=== PATIENT | male | born 1945 | race Caucasian/White ===

== ENCOUNTER 2018-01-21 02:36 | Inpatient (IN) | payer MEDICARE ==
--- NOTE | 2018-01-21 03:43 | ED ---
Dizziness HPI - General Chief Complaint: Dizziness Stated Complaint: Vertigo Time Seen by Provider: 01/21/18 02:43 Source: patient Mode of arrival: ambulatory Limitations: no limitations - History of Present Illness Initial Comments: This patient is 72-year-old man coming to the emergency room by ambulance to be evaluated after he had a fall. The patient states that for number of months she has been having increasing generalized weakness and muscle wasting. He does not have a physician so he states he had just put up with this going on. Tonight he had gone and use the bathroom, and when he bent down he'll became very dizzy and lost his balance. He then was not able to get up even with the help of a neighbor so they did call EMS. He did spend a couple of hours on the floor attempting to get up. The patient denies any injury. No fever or chills. No dyspnea. He denies focal weakness. Review of systems, the patient does note that he has left leg swelling that has been long-standing. MD Complaint: difficulty walking, other (Generalized weakness) -: month(s) Timing: gradual onset Improves With: nothing Worsens With: nothing Associated Symptoms: weakness - Related Data Home Medications Medication Instructions Recorded Confirmed Aspirin EC [Ecotrin] 325 mg PO DAILY 01/21/18 01/21/18 Allergies Allergy/AdvReac Type Severity Reaction Status Date / Time No Known Allergies Allergy Verified 01/21/18 07:37 Review of Systems ROS Statement: Those systems with pertinent positive or pertinent negative responses have been documented in the HPI. ROS Other: All systems not noted in ROS Statement are negative. Constitutional: Reports: weakness. Denies: fever, chills Eyes: Denies: vision change Respiratory: Denies: cough, dyspnea Cardiovascular: Reports: edema (Left leg). Denies: chest pain, palpitations, orthopnea Gastrointestinal: Denies: abdominal pain, vomiting, diarrhea Genitourinary: Denies: dysuria, hematuria Musculoskeletal: Denies: back pain Skin: Denies: rash Neurological: Reports: weakness (Generalized). Denies: headache, numbness, paresthesias Psychiatric: Denies: anxiety Past Medical History Past Medical History: No Reported History History of Any Multi-Drug Resistant Organisms: None Reported Past Surgical History: No Surgical Hx Reported Past Psychological History: No Psychological Hx Reported Smoking Status: Current every day smoker Past Alcohol Use History: Daily Past Drug Use History: None Reported - Past Family History Mother Additional Family Medical History / Comment(s): from cirrhosis Father Additional Family Medical History / Comment(s): from [place] General Exam Limitations: no limitations General appearance: alert, in no apparent distress Head exam: Present: atraumatic, normocephalic Eye exam: Present: normal appearance. Absent: scleral icterus, conjunctival injection ENT exam: Present: mucous membranes dry Neck exam: Present: normal inspection Respiratory exam: Present: normal lung sounds bilaterally. Absent: respiratory distress, wheezes, rales, rhonchi, stridor Cardiovascular Exam: Present: regular rate, normal rhythm, normal heart sounds. Absent: systolic murmur, diastolic murmur, rubs, gallop GI/Abdominal exam: Present: soft. Absent: tenderness, guarding, rebound Extremities exam: Present: normal capillary refill, other (Left leg edema to the knee). Absent: tenderness Neurological exam: Present: alert, CN II-XII intact. Absent: motor sensory deficit Skin exam: Present: warm, dry, intact, pallor Course Vital Signs 01/21/18 01/21/18 01/21/18 02:45 04:26 06:01 Temperature 98.4 F Pulse Rate 68 64 67 Respiratory 16 16 16 Rate Blood Pressure 110/56 128/60 109/57 O2 Sat by Pulse 99 97 98 Oximetry 01/21/18 01/21/18 01/21/18 07:50 08:00 08:30 Temperature 97.5 F L 97.8 F 97.9 F Pulse Rate 71 63 62 Respiratory 18 16 16 Rate Blood Pressure 116/61 116/70 113/68 O2 Sat by Pulse 97 92 L Oximetry EKG Findings - EKG Results: EKG: interpreted by ERMD, sinus rhythm, normal axis, normal QRS - Blocks, [place], Hypertrophy, ST Abn: Repolarization changes or abnormalities: nonspecific abnormality, ST segment, and/or T wave, Q-T interval prolongation Medical Decision Making - Lab Data Result diagrams: 01/29/18 04:25 01/29/18 04:25 Lab Results 01/21/18 01/21/18 01/21/18 Range/Units 02:50 02:50 02:50 WBC (3.8-10.6) k/uL RBC (4.30-5.90) m/uL Hgb (13.0-17.5) gm/dL Hct (39.0-53.0) % MCV (80.0-100.0) fL MCH (25.0-35.0) pg MCHC (31.0-37.0) g/dL RDW (11.5-15.5) % Plt Count (150-450) k/uL Neutrophils % % Lymphocytes % % Monocytes % % Eosinophils % % Basophils % % Neutrophils # (1.3-7.7) k/uL Lymphocytes # (1.0-4.8) k/uL Monocytes # (0-1.0) k/uL Eosinophils # (0-0.7) k/uL Basophils # (0-0.2) k/uL Hypochromasia Poikilocytosis Anisocytosis Microcytosis Macrocytosis Retic Count (0.5-2.0) % Sodium 137 (137-145) mmol/L Potassium 2.1 L* (3.5-5.1) mmol/L Chloride 98 (98-107) mmol/L Carbon Dioxide 27 (22-30) mmol/L Anion Gap 12 mmol/L BUN 8 L (9-20) mg/dL Creatinine 0.63 L (0.66-1.25) mg/dL Est GFR (CKD-EPI)AfAm >90 (>60 ml/min/1.73 sqM) Est GFR (CKD-EPI)NonAf >90 (>60 ml/min/1.73 sqM) Glucose 87 (74-99) mg/dL Lactic Ac Sepsis Rflx Plasma Lactic Acid Rohit 3.8 H* (0.7-2.0) mmol/L Calcium 7.7 L (8.4-10.2) mg/dL Magnesium (1.6-2.3) mg/dL Iron (65-175) ug/dL TIBC (228-460) ug/dL Iron Saturation (15.00-50.00) Ferritin (22.0-322.0) ng/mL Total Bilirubin 0.2 (0.2-1.3) mg/dL AST 69 H (17-59) U/L ALT 31 (21-72) U/L Alkaline Phosphatase 144 H (38-126) U/L Total Creatine Kinase 158 (55-170) U/L CK-MB (CK-2) 2.2 (0.0-2.4) ng/mL CK-MB (CK-2) Rel Index 1.4 Troponin I 0.147 H* (0.000-0.034) ng/mL Total Protein 5.1 L (6.3-8.2) g/dL Albumin 2.5 L (3.5-5.0) g/dL Vitamin B12 (200.0-944.0) pg/mL RBC Folate (280 - 791) ng/mL TSH (0.465-4.680) mIU/L Blood Type Blood Type Confirm Blood Type Recheck Antibody Screen Crossmatch Spec Expiration Date 01/21/18 01/21/18 01/21/18 Range/Units 04:18 04:18 04:18 WBC 5.5 (3.8-10.6) k/uL RBC 2.01 L (4.30-5.90) m/uL Hgb 5.5 L* (13.0-17.5) gm/dL Hct 18.4 L* (39.0-53.0) % MCV 91.8 (80.0-100.0) fL MCH 27.2 (25.0-35.0) pg MCHC 29.6 L (31.0-37.0) g/dL RDW 26.0 H (11.5-15.5) % Plt Count 298 (150-450) k/uL Neutrophils % 80 % Lymphocytes % 12 % Monocytes % 7 % Eosinophils % 0 % Basophils % 0 % Neutrophils # 4.4 (1.3-7.7) k/uL Lymphocytes # 0.7 L (1.0-4.8) k/uL Monocytes # 0.4 (0-1.0) k/uL Eosinophils # 0.0 (0-0.7) k/uL Basophils # 0.0 (0-0.2) k/uL Hypochromasia Marked Poikilocytosis Marked Anisocytosis Marked Microcytosis Slight Macrocytosis Slight Retic Count (0.5-2.0) % Sodium (137-145) mmol/L Potassium (3.5-5.1) mmol/L Chloride (98-107) mmol/L Carbon Dioxide (22-30) mmol/L Anion Gap mmol/L BUN (9-20) mg/dL Creatinine (0.66-1.25) mg/dL Est GFR (CKD-EPI)AfAm (>60 ml/min/1.73 sqM) Est GFR (CKD-EPI)NonAf (>60 ml/min/1.73 sqM) Glucose (74-99) mg/dL Lactic Ac Sepsis Rflx Plasma Lactic Acid Rohit (0.7-2.0) mmol/L Calcium (8.4-10.2) mg/dL Magnesium (1.6-2.3) mg/dL Iron 50 L (65-175) ug/dL TIBC 201 L (228-460) ug/dL Iron Saturation 24.88 (15.00-50.00) Ferritin 693.5 H (22.0-322.0) ng/mL Total Bilirubin (0.2-1.3) mg/dL AST (17-59) U/L ALT (21-72) U/L Alkaline Phosphatase (38-126) U/L Total Creatine Kinase (55-170) U/L CK-MB (CK-2) (0.0-2.4) ng/mL CK-MB (CK-2) Rel Index Troponin I (0.000-0.034) ng/mL Total Protein (6.3-8.2) g/dL Albumin (3.5-5.0) g/dL Vitamin B12 875.0 (200.0-944.0) pg/mL RBC Folate 1,309 H (280 - 791) ng/mL TSH (0.465-4.680) mIU/L Blood Type Blood Type Confirm Blood Type Recheck Antibody Screen Crossmatch Spec Expiration Date 01/21/18 01/21/18 01/21/18 Range/Units 04:18 04:18 04:55 WBC (3.8-10.6) k/uL RBC (4.30-5.90) m/uL Hgb (13.0-17.5) gm/dL Hct (39.0-53.0) % MCV (80.0-100.0) fL MCH (25.0-35.0) pg MCHC (31.0-37.0) g/dL RDW (11.5-15.5) % Plt Count (150-450) k/uL Neutrophils % % Lymphocytes % % Monocytes % % Eosinophils % % Basophils % % Neutrophils # (1.3-7.7) k/uL Lymphocytes # (1.0-4.8) k/uL Monocytes # (0-1.0) k/uL Eosinophils # (0-0.7) k/uL Basophils # (0-0.2) k/uL Hypochromasia Poikilocytosis Anisocytosis Microcytosis Macrocytosis Retic Count 1.3 (0.5-2.0) % Sodium (137-145) mmol/L Potassium (3.5-5.1) mmol/L Chloride (98-107) mmol/L Carbon Dioxide (22-30) mmol/L Anion Gap mmol/L BUN (9-20) mg/dL Creatinine (0.66-1.25) mg/dL Est GFR (CKD-EPI)AfAm (>60 ml/min/1.73 sqM) Est GFR (CKD-EPI)NonAf (>60 ml/min/1.73 sqM) Glucose (74-99) mg/dL Lactic Ac Sepsis Rflx Y Plasma Lactic Acid Rohit (0.7-2.0) mmol/L Calcium (8.4-10.2) mg/dL Magnesium 1.7 (1.6-2.3) mg/dL Iron (65-175) ug/dL TIBC (228-460) ug/dL Iron Saturation (15.00-50.00) Ferritin (22.0-322.0) ng/mL Total Bilirubin (0.2-1.3) mg/dL AST (17-59) U/L ALT (21-72) U/L Alkaline Phosphatase (38-126) U/L Total Creatine Kinase (55-170) U/L CK-MB (CK-2) (0.0-2.4) ng/mL CK-MB (CK-2) Rel Index Troponin I (0.000-0.034) ng/mL Total Protein (6.3-8.2) g/dL Albumin (3.5-5.0) g/dL Vitamin B12 (200.0-944.0) pg/mL RBC Folate (280 - 791) ng/mL TSH 2.320 (0.465-4.680) mIU/L Blood Type Blood Type Confirm Blood Type Recheck Antibody Screen Crossmatch Spec Expiration Date 01/21/18 01/21/18 Range/Units 06:00 06:00 WBC (3.8-10.6) k/uL RBC (4.30-5.90) m/uL Hgb (13.0-17.5) gm/dL Hct (39.0-53.0) % MCV (80.0-100.0) fL MCH (25.0-35.0) pg MCHC (31.0-37.0) g/dL RDW (11.5-15.5) % Plt Count (150-450) k/uL Neutrophils % % Lymphocytes % % Monocytes % % Eosinophils % % Basophils % % Neutrophils # (1.3-7.7) k/uL Lymphocytes # (1.0-4.8) k/uL Monocytes # (0-1.0) k/uL Eosinophils # (0-0.7) k/uL Basophils # (0-0.2) k/uL Hypochromasia Poikilocytosis Anisocytosis Microcytosis Macrocytosis Retic Count (0.5-2.0) % Sodium (137-145) mmol/L Potassium (3.5-5.1) mmol/L Chloride (98-107) mmol/L Carbon Dioxide (22-30) mmol/L Anion Gap mmol/L BUN (9-20) mg/dL Creatinine (0.66-1.25) mg/dL Est GFR (CKD-EPI)AfAm (>60 ml/min/1.73 sqM) Est GFR (CKD-EPI)NonAf (>60 ml/min/1.73 sqM) Glucose (74-99) mg/dL Lactic Ac Sepsis Rflx Plasma Lactic Acid Rohit (0.7-2.0) mmol/L Calcium (8.4-10.2) mg/dL Magnesium (1.6-2.3) mg/dL Iron (65-175) ug/dL TIBC (228-460) ug/dL Iron Saturation (15.00-50.00) Ferritin (22.0-322.0) ng/mL Total Bilirubin (0.2-1.3) mg/dL AST (17-59) U/L ALT (21-72) U/L Alkaline Phosphatase (38-126) U/L Total Creatine Kinase (55-170) U/L CK-MB (CK-2) (0.0-2.4) ng/mL CK-MB (CK-2) Rel Index Troponin I (0.000-0.034) ng/mL Total Protein (6.3-8.2) g/dL Albumin (3.5-5.0) g/dL Vitamin B12 (200.0-944.0) pg/mL RBC Folate (280 - 791) ng/mL TSH (0.465-4.680) mIU/L Blood Type O Positive Blood Type Confirm O Positive Blood Type Recheck CABO Indicated Antibody Screen NEGATIVE Crossmatch See Detail Spec Expiration Date 01/24/2018 - 2300 Critical Care Time Critical Care Time: Yes (30 minutes) Disposition Clinical Impression: Anemia, Lactic acidosis, Hypokalemia, Left leg swelling Disposition: [facility]MITT[facility] Condition: Poor
--- NOTE | 2018-01-21 03:57 | XR ---
EXAMINATION TYPE: XR chest 1V portable DATE OF EXAM: 01/21/2018 COMPARISON: NONE HISTORY: Dizziness TECHNIQUE: Single frontal view of the chest is obtained. FINDINGS: There is no heart failure nor confluent pneumonic infiltrate. There are numerous calcified granulomata in the right lung. Diaphragm is normal. There are chest leads. Bony thorax appears intac t. IMPRESSION: No active cardiopulmonary disease. Old granulomatous disease.
[2018-01-21 04:26] LABS: ALT 31 U/L (21-72); AST 69 U/L (17-59); Albumin 2.5 g/dL (3.5-5.0); Alkaline Phosphatase 144 U/L (38-126); Anion Gap 12 mmol/L; Blood Urea Nitrogen 8 mg/dL (9-20); Calcium 7.7 mg/dL (8.4-10.2); Carbon Dioxide 27 mmol/L (22-30); Chloride 98 mmol/L (98-107); Glucose 87 mg/dL (74-99); Sodium 137 mmol/L (137-145); Total Bilirubin 0.2 mg/dL (0.2-1.3); Total Protein 5.1 g/dL (6.3-8.2)
--- NOTE | 2018-01-21 04:26 | CT ---
EXAMINATION TYPE: CT brain wo con DATE OF EXAM: 01/21/2018 COMPARISON: None HISTORY: No prior, weakness, vertigo CT DLP: 1108.40 mGycm Automated exposure control for dose reduction was used. FINDINGS: There is cerebral cortical atrophy. There is no mass effect nor midline shift. There is no sign of in tracranial hemorrhage. Calvarium is intact. There is mucosal thickening in the maxillary sinuses. The re is fluid level in the right maxillary sinus. There is cortical thickening of the aldridge of the maxi llary sinuses. There is frontal sinus mucosal thickening. IMPRESSION: CHRONIC SINUSITIS. CEREBRAL ATROPHY. NO ACUTE INTRACRANIAL ABNORMALITY.
[2018-01-21 04:46] LABS: Anisocytosis Marked; Basophils % (A) 0 %; Eosinophils % (A) 0 %; Hypochromasia Marked; Lymphocytes # (A) 0.7 k/uL (1.0-4.8); Lymphocytes % (A) 12 %; MCH 27.2 pg (25.0-35.0); MCHC 29.6 g/dL (31.0-37.0); MCV 91.8 fL (80.0-100.0); Macrocytosis Slight; Microcytosis Slight; Monocytes # (A) 0.4 k/uL (0-1.0); Monocytes % (A) 7 %; Neutrophils # (A) 4.4 k/uL (1.3-7.7); Neutrophils % (A) 80 %; Platelet Count 298 k/uL (150-450); Poikilocytosis Marked; RBC 2.01 m/uL (4.30-5.90); WBC 5.5 k/uL (3.8-10.6)
[2018-01-21 04:50] LABS: HCT 18.4 % (39.0-53.0); HGB 5.5 gm/dL (13.0-17.5)
[2018-01-21 04:54] LABS: Potassium 2.1 mmol/L (3.5-5.1)
[2018-01-21 05:06] LABS: Creatine Kinase MB 2.2 ng/mL (0.0-2.4)
[2018-01-21] MEDS ORDERED: SODIUM CHLORIDE 0.9% 1,000 ML IV ONE ×2 (05:24→07:00)
[2018-01-21] MEDS ORDERED: POTASSIUM CHLORIDE ER 20 MEQ TAB.ER PO STA (05:24)
[2018-01-21 05:39] LABS: Troponin I 0.147 ng/mL (0.000-0.034)
[2018-01-21 07:56] LABS: Magnesium 1.7 mg/dL (1.6-2.3)
--- NOTE | 2018-01-21 08:09 | US ---
EXAMINATION TYPE: US venous doppler duplex LE LT DATE OF EXAM: 01/21/2018 7:37 AM COMPARISON: NONE CLINICAL HISTORY: swelling. left leg swelling, no hx of DVT, on aspirin SIDE PERFORMED: Left TECHNIQUE: The lower extremity deep venous system is examined utilizing real time linear array sonog va with graded compression, doppler sonography and color-flow sonography. VESSELS IMAGED: External Iliac Vein (EIV) Common Femoral Vein Deep Femoral Vein Greater Saphenous Vein * Femoral Vein Popliteal Vein Small Saphenous Vein * Proximal Calf Veins (* superficial vessels) There is normal flow, compressibility, vascular waveforms. Left Leg: Negative for DVT. Superficial edema visualized posterior knee IMPRESSION: No evident deep venous thrombosis at or above the left knee.
[2018-01-21 08:28] LABS: Reticulocyte % 1.3 % (0.5-2.0)
[2018-01-21] MEDS ORDERED: POTASSIUM CHLORIDE ER 20 MEQ TAB.ER PO SCH (09:00)
[2018-01-21] MEDS ORDERED: POTASSIUM BICARBONATE/CIT AC 20 MEQ TABLET.EFF PO ONE (09:55)
[2018-01-21] MEDS ORDERED: HYDROcodone/APAP 5-325MG 1 EACH TAB PO PRN (10:04)
[2018-01-21] MEDS ORDERED: ONDANSETRON 4 MG/2 ML VIAL IVP PRN (10:04)
[2018-01-21] MEDS ORDERED: ACETAMINOPHEN TAB 325 MG TAB PO PRN (10:04)
[2018-01-21] MEDS ORDERED: ALPRAZolam 0.25 MG TAB PO PRN (10:04)
[2018-01-21] MEDS ORDERED: NALOXONE 0.4 MG/ML 1 ML VIAL IV PRN (10:04)
[2018-01-21] MEDS ORDERED: DOCUSATE 100 MG CAP PO PRN (10:04)
[2018-01-21] MEDS ORDERED: LORazepam 2 MG/ML INJ IV PRN ×3 (10:09)
--- NOTE | 2018-01-21 10:28 | P.HPIM ---
History of Present Illness H&P Date: 01/21/18 Chief Complaint: weakness Patient is a 72-year-old male with history of tobacco and alcohol abuse but no medical history who presented to the ER via EMS after falling to the ground and being unable to recover. In the ER he underwent an extensive evaluation. They did a CT brain which showed some chronic sinusitis site is an age-appropriate atrophy. Chest x-ray showed old granulomatous disease. Vital signs were within normal limits. Initial laboratory analysis shows severe anemia with a hemoglobin of 5.5 and elevated troponin at 0.147.. He was ordered 1 unit of packed red blood cells. Arrangements are made for admission. Patient seen and examined at bedside in the ER. He reports that he was attempting to go to the bathroom yesterday and felt off balance and lowered himself to the ground. Once on the ground he was unable to get himself up. He crawled to the living room but still could not get off the ground. He called a neighbor who was unable to help him in he ultimately called EMS. He reports that he has had significant eye lateral lower extremity weakness for the last 2- 3 months. He has been aware that he cannot lowered salt ground or he cannot get back up. He is states he has had a decreased appetite and has lost approximately 15 pounds in the last 6 months. He denies any chest pain, shortness of breath, nausea, vomiting, dizziness, syncopal, diarrhea, or constipation. He does not have a primary care physician and is only ever seen physicians from the ER. Has lost contact with medical care was at [facility] in 2016 for pneumonia. He states that at that time they told him to take a pill because his blood count was slightly low. He denies any blood in his stool, dark tarry stool, blood in his urine, or coughing up blood. He smokes 1-1.5 packs per day. He drinks between one and 3 shots daily. He states that he doesn't eat while there is nobody there to call. He lives alone. He obtained a walker just yesterday due to his weakness. He has never had a colonoscopy or prostate cancer screening. He denies any family history of cancer. Review of Systems Pertinent positives and negatives as discussed in HPI, a complete review of systems was performed and all other systems are negative. Past Medical History Past Medical History: No Reported History History of Any Multi-Drug Resistant Organisms: None Reported Past Surgical History: No Surgical Hx Reported Past Psychological History: No Psychological Hx Reported Smoking Status: Current every day smoker Past Alcohol Use History: Daily Past Drug Use History: None Reported Additional History: Lives alone, no primary care physician, smokes 1-1.5 packs per day, drinks 1-3 shots daily. - Past Family History Mother Additional Family Medical History / Comment(s): from cirrhosis Father Additional Family Medical History / Comment(s): from [place] Medications and Allergies Home Medications Medication Instructions Recorded Confirmed Type Aspirin EC [Ecotrin] 325 mg PO DAILY 01/21/18 01/21/18 History Allergies Allergy/AdvReac Type Severity Reaction Status Date / Time No Known Allergies Allergy Verified 01/21/18 07:37 Physical Exam Osteopathic Statement: *. No significant issues noted on an osteopathic structural exam other than those noted in the History and Physical/Consult. Vitals: Vital Signs Temp Pulse Resp BP Pulse Ox 01/21/18 08:30 97.9 F 62 16 113/68 01/21/18 08:00 97.8 F 63 16 116/70 92 L 01/21/18 07:50 97.5 F L 71 18 116/61 97 01/21/18 06:01 67 16 109/57 98 01/21/18 04:26 64 16 128/60 97 01/21/18 02:45 98.4 F 68 16 110/56 99 Intake and Output 01/20/18 01/21/18 01/21/18 22:59 06:59 14:59 Intake Total 0 Balance 0 Intake: Blood Product 0 Rc Pheresis As-3 Unit 0 [id number] Other: Weight 58.967 kg General: chronically ill appearing, no distress, appears at stated age, cachetic with temporal wasting Derm: no unusual rashes/lesions no unusual ecchymoses, warm, dry, flaking Head: atraumatic, normocephalic, symmetric Eyes: EOMI, no lid lag, anicteric sclera, pupils equal round reactive to light ENT: Nose and ears atraumatic, no thrush, no pharyngeal erythema Neck: No thyromegaly, no cervical lymphadenopathy, trachea midline, supple Mouth: no lip lesion, mucus membranes dry, poor dentition Cardiovascular: S1S2 reg, no murmur, positive posterior tibial pulse bilateral, 2+ edema left LE, no edema R LE, capillary refill less than 2 seconds Lungs: faint wheeze left base, no rhonchi, no rales , no accessory muscle use Abdominal: soft, nontender to palpation, no guarding, no appreciable organomegaly, normal bowel sounds Ext: no gross muscle atrophy, muscle strength 5 out of 5upper extremities grossly and 3/5 in lower extremities, no contractures, Neuro: CN II-XI grossly intact, light touch intact all 4 extremities, finger to nose within normal limits, Psych: Alert, oriented, appropriate affect Results CBC & Chem 7: 01/21/18 04:18 01/21/18 02:50 Labs: Abnormal Lab Results - Last 24 Hours (Table) 01/21/18 01/21/18 01/21/18 Range/Units 02:50 02:50 02:50 RBC (4.30-5.90) m/uL Hgb (13.0-17.5) gm/dL Hct (39.0-53.0) % MCHC (31.0-37.0) g/dL RDW (11.5-15.5) % Lymphocytes # (1.0-4.8) k/uL Potassium 2.1 L* (3.5-5.1) mmol/L BUN 8 L (9-20) mg/dL Creatinine 0.63 L (0.66-1.25) mg/dL Plasma Lactic Acid Rohit 3.8 H* (0.7-2.0) mmol/L Calcium 7.7 L (8.4-10.2) mg/dL AST 69 H (17-59) U/L Alkaline Phosphatase 144 H (38-126) U/L Troponin I 0.147 H* (0.000-0.034) ng/mL Total Protein 5.1 L (6.3-8.2) g/dL Albumin 2.5 L (3.5-5.0) g/dL Crossmatch 01/21/18 01/21/18 Range/Units 04:18 06:00 RBC 2.01 L (4.30-5.90) m/uL Hgb 5.5 L* (13.0-17.5) gm/dL Hct 18.4 L* (39.0-53.0) % MCHC 29.6 L (31.0-37.0) g/dL RDW 26.0 H (11.5-15.5) % Lymphocytes # 0.7 L (1.0-4.8) k/uL Potassium (3.5-5.1) mmol/L BUN (9-20) mg/dL Creatinine (0.66-1.25) mg/dL Plasma Lactic Acid Rohit (0.7-2.0) mmol/L Calcium (8.4-10.2) mg/dL AST (17-59) U/L Alkaline Phosphatase (38-126) U/L Troponin I (0.000-0.034) ng/mL Total Protein (6.3-8.2) g/dL Albumin (3.5-5.0) g/dL Crossmatch See Detail Thrombosis Risk Factor Assmnt - DVT/VTE Prophylaxis DVT/VTE Prophylaxis: Mechanical Prophylaxis ordered Assessment and Plan Assessment: Symptomatic anemia, hypoproliferative -Await iron studies, B12, and folic acid -Follow CBC in a.m. -1 unit of packed red blood cells -Consult hematology oncology Generalized Lower extremity weakness -Await B12 level -Fall precautions -PT/OT evaluation - Consult neuro, consider MRI Elevated troponin, likely secondary to demand ischemia -Repeat troponin every 6 hours -start aspirin 81 mg -Check echo in a.m. - tele Severe Hypokalemia -Magnesium levels normal when checked -Replace -Recheck this afternoon -tele Tobacco abuse - cessation - nicotine replacement ETOH abuse - [facility] protocol - thiamine and folic acid supplementation Severe protein calorie malnutrition -added MVI -consuilt dietitiain The patient is admitted with an anticipated greater than 2 midnight stay for evaluation of Severe symptomatic anemia. Surrogate decision-maker: Daughter-Lisa CODE STATUS:DNR DVT prophylaxis: Heparin Discussed with: Patient, nursing Anticipated discharge date: 48-[address] A total of 65 minutes was spent on the care of this complex patient more than 50 % of the time was spent in counseling and care coordination.
[2018-01-21] MEDS ORDERED: ASPIRIN 81 MG PO SCH (10:30)
[2018-01-21] MEDS: POTASSIUM CHLORIDE 20 MEQ in WATER FOR INJECTION 1 100ML.BAG IVPB SCH ×2 (10:59→13:30)
[2018-01-21] MEDS: NICOTINE 21MG/24HR PATCH TRANSDERM SCH (11:00)
[2018-01-21 11:49] LABS: Anisocytosis Moderate; HCT 23.6 % (39.0-53.0); Hypochromasia Marked; MCH 28.8 pg (25.0-35.0); MCHC 30.7 g/dL (31.0-37.0); MCV 93.6 fL (80.0-100.0); Macrocytosis Slight; Mean Platelet Volume 7.7; Microcytosis Slight; Platelet Count 277 k/uL (150-450); Poikilocytosis Marked; RBC 2.52 m/uL (4.30-5.90); RDW 23.2 % (11.5-15.5); WBC 5.3 k/uL (3.8-10.6)
[2018-01-21 11:50] LABS: HGB 7.2 gm/dL (13.0-17.5)
[2018-01-21] MEDS: FOLIC ACID 1 MG TAB PO SCH (12:26)
[2018-01-21] MEDS: MULTIVITAMINS, THERA 1 EACH TAB PO SCH (12:26)
--- NOTE | 2018-01-21 13:32 | P.CONS ---
History of Present Illness - Reason for Consult Consult date: 01/21/18 Anemia Requesting physician: Taylor Rogers - Chief Complaint Fall - History of Present Illness Mr. Rosas is a patient who presented to the emergency department after suffering a fall and unable to stand up. He has no medical history documented as he has not seen a medical professional for a very long time. He apparently has a known social history of tobacco and alcohol abuse. He arrived to [facility] ER via ambulance after he states he felt dizzy, lowered himself to the ground, and could not get back up. He complains of worsening lower extremity weakness over the past few months. Decreased appetite over past few months with at least 15lb weight loss. He does not seek regular medical care and does not have any relationship with a PCP. He smokes 1-1.5 packs per day. He drinks between one and 3 shots daily. He lives alone. He obtained a walker just yesterday due to his weakness. He has never had a colonoscopy or prostate cancer screening. He denies any known family history of cancer. Review of Systems A 14 point review of systems was assessed and completed and all negative except HPI. Past Medical History Past Medical History: No Reported History History of Any Multi-Drug Resistant Organisms: None Reported Past Surgical History: No Surgical Hx Reported Past Psychological History: No Psychological Hx Reported Smoking Status: Current every day smoker Past Alcohol Use History: Daily Past Drug Use History: None Reported - Past Family History Mother Additional Family Medical History / Comment(s): from cirrhosis Father Additional Family Medical History / Comment(s): from [place] Medications and Allergies Home Medications Medication Instructions Recorded Confirmed Type Aspirin EC [Ecotrin] 325 mg PO DAILY 01/21/18 01/21/18 History Allergies Allergy/AdvReac Type Severity Reaction Status Date / Time No Known Allergies Allergy Verified 01/21/18 07:37 Physical Exam Vitals: Vital Signs Temp Pulse Pulse Resp BP BP Pulse Ox 01/21/18 12:00 75 01/21/18 10:48 97.9 F 93 133/82 98 01/21/18 10:20 93 133/82 98 01/21/18 09:50 98.0 F 66 150/74 01/21/18 08:30 97.9 F 62 16 113/68 01/21/18 08:00 97.8 F 63 16 116/70 92 L 10/04/18 07:50 97.5 F L 71 18 116/61 97 01/21/18 06:01 67 16 109/57 98 01/21/18 04:26 64 16 128/60 97 01/21/18 02:45 98.4 F 68 16 110/56 99 Intake and Output 01/20/18 01/21/18 01/21/18 22:59 06:59 14:59 Intake Total 620 Balance 620 Intake: Blood Product 620 Rc Pheresis As-3 Unit 310 [id number] Other: Weight 58.967 kg 58.967 kg General: chronically ill appearing, no distress, appears at stated age, cachetic Head: atraumatic, normocephalic Eyes: EOMI, anicteric sclera, ENT: No mucocytis, pharyngeal edema Neck:supple Mouth: no lip lesion, mucus membranes dry, poor dentition Cardiovascular: S1S2 reg, no murmur, positive posterior tibial pulse bilateral, 2+ edema left LE, no edema R LE, capillary refill less than 2 seconds Lungs: faint wheeze left base, no rhonchi, no rales , no accessory muscle use Abdominal: soft, nontender, normal bowel sounds Ext: no gross muscle atrophy, muscle strength 5 out of 5upper extremities grossly and 3/5 in lower extremities bilaterally Neuro: CN II-XI grossly intact Psych: Alert, oriented, appropriate affect Skin: no rashes/lesions no ecchymoses, warm, dry, flaking Results CBC & Chem 7: 01/21/18 10:58 01/21/18 02:50 Labs: Abnormal Lab Results - Last 24 Hours (Table) 01/21/18 01/21/18 01/21/18 Range/Units 02:50 02:50 02:50 RBC (4.30-5.90) m/uL Hgb (13.0-17.5) gm/dL Hct (39.0-53.0) % MCHC (31.0-37.0) g/dL RDW (11.5-15.5) % Lymphocytes # (1.0-4.8) k/uL Potassium 2.1 L* (3.5-5.1) mmol/L BUN 8 L (9-20) mg/dL Creatinine 0.63 L (0.66-1.25) mg/dL Plasma Lactic Acid Rohit 3.8 H* (0.7-2.0) mmol/L Calcium 7.7 L (8.4-10.2) mg/dL AST 69 H (17-59) U/L Alkaline Phosphatase 144 H (38-126) U/L Troponin I 0.147 H* (0.000-0.034) ng/mL Total Protein 5.1 L (6.3-8.2) g/dL Albumin 2.5 L (3.5-5.0) g/dL Crossmatch 01/21/18 01/21/18 01/21/18 Range/Units :18 06:00 10:50 RBC 2.01 L (4.30-5.90) m/uL Hgb 5.5 L* (13.0-17.5) gm/dL Hct 18.4 L* (39.0-53.0) % MCHC 29.6 L (31.0-37.0) g/dL RDW 26.0 H (11.5-15.5) % Lymphocytes # 0.7 L (1.0-4.8) k/uL Potassium (3.5-5.1) mmol/L BUN (9-20) mg/dL Creatinine (0.66-1.25) mg/dL Plasma Lactic Acid Rohit (0.7-2.0) mmol/L Calcium (8.4-10.2) mg/dL AST (17-59) U/L Alkaline Phosphatase (38-126) U/L Troponin I 0.140 H* (0.000-0.034) ng/mL Total Protein (6.3-8.2) g/dL Albumin (3.5-5.0) g/dL Crossmatch See Detail 01/21/18 Range/Units 10:58 RBC 2.52 L (4.30-5.90) m/uL Hgb 7.2 L D (13.0-17.5) gm/dL Hct 23.6 L (39.0-53.0) % MCHC 30.7 L (31.0-37.0) g/dL RDW 23.2 H (11.5-15.5) % Lymphocytes # (1.0-4.8) k/uL Potassium (3.5-5.1) mmol/L BUN (9-20) mg/dL Creatinine (0.66-1.25) mg/dL Plasma Lactic Acid Rohit (0.7-2.0) mmol/L Calcium (8.4-10.2) mg/dL AST (17-59) U/L Alkaline Phosphatase (38-126) U/L Troponin I (0.000-0.034) ng/mL Total Protein (6.3-8.2) g/dL Albumin (3.5-5.0) g/dL Crossmatch Chest x-ray: report reviewed MRI - head: report reviewed Assessment and Plan Plan: Assessment and Recommendations: 1. Severe Normocytic Anemia: - Likely a result of malnutrition, ETOH, possible underlying etiology - Full Anemia WOrk-up in progress - Transfuse Less than 7 - If appears to be component of GI blood loss rec GI evaluation and Work-up. 2. ETOH/TObacco Abuse: High Risk Lifestyle without preventative healthcare 3. Weight Loss and Malnutrition 4. Myopathy of lower extremities possibily secondary to Number 3 or ther underlying etiology 5. Hypokalemia: - supp per primary team 6. Anorexia, Severe protein calorie malnutrition Plan: Await ANemia Work-up and provide supportive care It is resonable to obtain scans with recent weight loss, decreased PO intake, and extremem weakness. - CT chest/abd pelvis with contrast recommended
--- NOTE | 2018-01-21 13:45 | ECHOF ---
Referral Reason:CHF, elevated troponin MEASUREMENTS -------- HEIGHT: 177.8 cm WEIGHT: 59.0 kg BP: 113/68 RVIDd: 2.7 cm (< 3.3) IVSd: 0.9 cm (0.6 - 1.1) LVIDd: 4.7 cm (3.9 - 5.3) LVPWd: 0.9 cm (0.6 - 1.1) IVSs: 1.2 cm LVIDs: 3.5 cm LVPWs: 1.1 cm LAESV Index (A-L): 21.44 ml/m Ao Diam: 2.9 cm (2.0 - 3.7) AV Cusp: 1.7 cm (1.5 - 2.6) LA Diam: 2.3 cm (2.7 - 3.8) MV E Hector: 1.09 m/s MV DecT: 277 ms MV A Hector: 0.88 m/s MV E/A Ratio: 1.24 RAP: 5.00 mmHg RVSP: 10.74 mmHg MV EF SLOPE: 112.39 mm/s (70 - 150) MV EXCURSION: 2.12 cm (> 18.000) FINDINGS -------- Sinus rhythm. This was a technically good study. The left ventricular size is normal. Left ventricular wall thickness is normal. Overall left vent ricular systolic function is normal with, an EF between 55 - 60 %. The right ventricle is normal in size and function. Normal LA size by volume 22+/-6 ml/m2. The right atrium is normal in size. There is mild aortic valve sclerosis. There is no evidence of aortic regurgitation. There is no e vidence of aortic stenosis. Mild mitral annular calcification present. Mild mitral regurgitation is present. Trace tricuspid regurgitation present. Right ventricular systolic pressure is normal at < 35 mmHg. The right ventricular systolic pressure, as measured by Doppler, is 10.74mmHg. Trace/mild (physiologic) pulmonic regurgitation. The aortic root size is normal. Normal inferior vena cava with normal inspiratory collapse consistent with estimated right atrial pre ssure of 5 mmHg. There is no pericardial effusion. CONCLUSIONS -------- 1. Sinus rhythm. 2. This was a technically good study. 3. The left ventricular size is normal. 4. Left ventricular wall thickness is normal. 5. Overall left ventricular systolic function is normal with, an EF between 55 - 60 %. 6. Normal LA size by volume 22+/-6 ml/m2. 7. There is mild aortic valve sclerosis. 8. Mild mitral annular calcification present. 9. Mild mitral regurgitation is present. 10. Trace tricuspid regurgitation present. 11. Right ventricular systolic pressure is normal at < 35 mmHg. 12. Trace/mild (physiologic) pulmonic regurgitation. 13. The aortic root size is normal. 14. There is no pericardial effusion. STEWARD DISHWASHER: Grey Marcelino RDCS
[2018-01-21 15:42] LABS: Potassium 3.5 mmol/L (3.5-5.1)
[2018-01-21 17:17] LABS: Iron Saturation 24.88 (15.00-50.00)
[2018-01-21] MEDS: THIAMINE 100 MG TAB PO SCH (17:50)
[2018-01-21] MEDS: HEPARIN SODIUM,PORCINE 5,000 UNIT/ML 1 ML VIAL SQ SCH ×2 (17:51→22:19)
[2018-01-21 18:44] LABS: Protein, Total 5.1 g/dL (6.2-8.2)
[2018-01-21 18:58] LABS: Folate, Serum >24.0 ng/mL
--- NOTE | 2018-01-21 20:58 | P.CNNES ---
History of Present Illness Consult date: 01/21/18 History of Present Illness: Patient is a 72-year-old right-handed white male states that he's been weak over the last 6 months worse over the last 3 months. Dates the weakness is felt primarily in his legs. He has a history of alcohol abuse for the last 2-1/ 2 years he's been drinking 2-4 shots of whiskey per day. The patient was working up to last summer. 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 The patient did not seek medical attention. He denies any other neurologic complaints such as visual or visual disturbance dizziness swallowing difficulty or headache. Nuys any trauma. Denies any recent illness. Mated to the hospital with severe anemia hemoglobin of 5.5 He was admitted with lactic acidosis and hypokalemia as well as some left leg swelling. She reports that he was sitting on the toilet and bent forward and fell to the floor and was unable to get up and this is why he presented to the hospital. The patient Review of Systems Constitutional: Denies chills, Denies fever Eyes: denies blurred vision, denies pain Cardiovascular: Denies chest pain, Denies shortness of breath Respiratory: Denies cough Gastrointestinal: Denies abdominal pain, Denies diarrhea, Denies nausea, Denies vomiting Musculoskeletal: Denies myalgias Neurological: Denies numbness, Denies weakness Psychiatric: Denies anxiety, Denies depression Past Medical History Past Medical History: No Reported History Additional Past Medical History / Comment(s): Increased bilateral leg weakness past 2-3 months, L ankle edema at times and for past couple days, ETOH abuse, protein calorie malnourished. History of Any Multi-Drug Resistant Organisms: None Reported Past Surgical History: No Surgical Hx Reported Additional Past Surgical History / Comment(s): Pt states he has never had surgery. Past Anesthesia/Blood Transfusion Reactions: Unable to Obtain Past Psychological History: No Psychological Hx Reported Smoking Status: Current every day smoker Past Alcohol Use History: Daily Past Drug Use History: None Reported - Past Family History Mother Additional Family Medical History / Comment(s): from cirrhosis Father Additional Family Medical History / Comment(s): from [place] Medications and Allergies Home Medications Medication Instructions Recorded Confirmed Type Aspirin EC [Ecotrin] 325 mg PO DAILY 10/04/18 10/04/18 History Allergies Allergy/AdvReac Type Severity Reaction Status Date / Time No Known Allergies Allergy Verified 01/21/18 07:37 Physical Examination - Vital Signs Vital Signs: Vital Signs Temp Pulse Pulse Resp BP BP Pulse Ox 01/21/18 16:00 78 139/71 100 01/21/18 12:00 75 01/21/18 10:48 97.9 F 93 133/82 98 01/21/18 10:20 93 133/82 98 01/21/18 09:50 98.0 F 66 150/74 01/21/18 08:30 97.9 F 62 16 113/68 01/21/18 08:00 97.8 F 63 16 116/70 92 L 01/21/18 07:50 97.5 F L 71 18 116/61 97 01/21/18 06:01 67 16 109/57 98 01/21/18 04:26 64 16 128/60 97 01/21/18 02:45 98.4 F 68 16 110/56 99 Intake and Output 01/21/18 01/21/18 01/21/18 06:59 14:59 22:59 Intake Total 738 240 Balance 738 240 Intake: Oral 118 240 Blood Product 620 Rc Pheresis As-3 Unit 310 [id number] Other: Weight 58.967 kg 58.967 kg - Constitutional General appearance: thin - EENT EENT: PERRL, hearing intact, vision intact, hearing diminished - Respiratory Respiratory: lungs clear - Cardiovascular Cardiovascular: regular rate, normal S1, normal S2 - Neurologic Neurologic examination: Mental status: He was awake alert and oriented. He asked questions appropriately. There is no aphasia or dysarthria next Cranial nerve examination pupils were 2 mm and equal, there was no facial asymmetry. Extraocular movements are intact visual molina are full there was no ptosis no nystagmus no facial asymmetry Motor examination there was no drift in the upper extremities he had 4+ over 5 strength in upper extremities and the lower extremities he had proximal muscle weakness 2/5 Sensory examination was intact to light touch Deep tendon reflexes were trace to absent X Gait was not tested Results - Laboratory Findings CBC and BMP: 01/21/18 10:58 01/21/18 15:08 Abnormal Lab Findings: Abnormal Labs 01/21/18 01/21/1801/21/18 02:50 02:50 02:50 RBC Hgb Hct MCHC RDW Lymphocytes # Potassium 2.1 L* BUN 8 L Creatinine 0.63 L Plasma Lactic Acid Rohit 3.8 H* Calcium 7.7 L Iron TIBC Ferritin AST 69 H Alkaline Phosphatase 144 H Lactate Dehydrogenase Troponin I 0.147 H* Total Protein 5.1 L Total Protein (PEP) Albumin 2.5 L Crossmatch 01/21/18 01/21/18 01/21/18 04:18 04:18 06:00 RBC 2.01 L Hgb 5.5 L* Hct 18.4 L* MCHC 29.6 L RDW 26.0 H Lymphocytes # 0.7 L Potassium BUN Creatinine Plasma Lactic Acid Rohit Calcium Iron 50 L TIBC 201 L Ferritin 693.5 H AST Alkaline Phosphatase Lactate Dehydrogenase Troponin I Total Protein Total Protein (PEP) Albumin Crossmatch See Detail 01/21/18 01/21/18 01/21/18 10:50 10:58 15:08 RBC 2.52 L Hgb 7.2 L D Hct 23.6 L MCHC 30.7 L RDW 23.2 H Lymphocytes # Potassium BUN Creatinine Plasma Lactic Acid Rohit Calcium Iron TIBC Ferritin AST Alkaline Phosphatase Lactate Dehydrogenase Troponin I 0.140 H* 0.106 H* Total Protein Total Protein (PEP) Albumin Crossmatch 01/21/18 01/21/18 15:08 15:08 RBC Hgb Hct MCHC RDW Lymphocytes # Potassium BUN Creatinine Plasma Lactic Acid Rohit Calcium Iron TIBC Ferritin AST Alkaline Phosphatase Lactate Dehydrogenase 675 H Troponin I Total Protein Total Protein (PEP) 5.1 L Albumin Crossmatch Assessment and Plan (1) Severe anemia Current Visit: Yes Status: Acute SNOMED Code(s): 884984325 (2) Bilateral leg weakness Current Visit: Yes Status: Acute SNOMED Code(s): 6947192 (3) ETOH abuse Current Visit: Yes Status: Acute SNOMED Code(s): 51132433 (4) Hypokalemia Current Visit: Yes Status: Acute SNOMED Code(s): 67348470 Plan: The patient is a 72-year-old man with chronic alcohol abuse who presents with progressive weakness over a period of 6 months primarily involving his legs with general debility medical debility. He presents with severe anemia with a hemoglobin of 5.5. He has been experiencing lower extremity weakness. He had a recent fall which resent to with which he presented to the hospital. His anemia is being worked up and likely secondary to chronic disease. He also has a proximal muscle weakness in lower extremities will check CPK to rule out myopathy. His lower extremity weakness could also be stemming from severe spinal stenosis we'll check MRI of the lumbar spine. He will need EMG studies as an outpatient. He had a CT of the brain which showed chronic sinusitis and cerebral atrophy.
[2018-01-21 21:30] LABS: Appearance,Urine Clear (Clear); Bilirubin,Urine Negative (Negative); Blood,Urine Negative (Negative); Color,Urine Yellow; Glucose,Urine (UA) Negative (Negative); Ketones,Urine Trace (Negative); Leukocyte Esterase,Urine Negative (Negative); Nitrite,Urine Negative (Negative); PH, Urine 5.5 (5.0-8.0); Protein,Urine Trace (Negative)
[2018-01-22 06:16] LABS: Anisocytosis Marked; Hypochromasia Marked; MCH 27.6 pg (25.0-35.0); MCHC 30.3 g/dL (31.0-37.0); Macrocytosis Slight; Mean Platelet Volume 7.9; Microcytosis Slight; Platelet Count 288 k/uL (150-450); Poikilocytosis Marked; RBC 2.16 m/uL (4.30-5.90); RDW 24.4 % (11.5-15.5); WBC 4.5 k/uL (3.8-10.6)
[2018-01-22 06:21] LABS: Anion Gap 4 mmol/L; Blood Urea Nitrogen 6 mg/dL (9-20); Calcium 6.9 mg/dL (8.4-10.2); Carbon Dioxide 31 mmol/L (22-30); Chloride 102 mmol/L (98-107); Creatine Kinase 163 U/L (55-170); Glucose 92 mg/dL (74-99); Magnesium 1.7 mg/dL (1.6-2.3); Sodium 137 mmol/L (137-145)
[2018-01-22 06:26] LABS: Potassium 2.4 mmol/L (3.5-5.1)
[2018-01-22] MEDS: PANTOPRAZOLE 40 MG TABLET PO SCH (06:32)
[2018-01-22] MEDS ORDERED: Potassium Replacement Protocol 1 EACH MISC MISCELLANE PRN (06:36)
[2018-01-22] MEDS ORDERED: POTASSIUM CHLORIDE ER 20 MEQ TAB.ER PO SCH (07:00)
[2018-01-22] MEDS: MAGNESIUM SULFATE-D5W PMX 1 GM in DEXTROSE/WATER 1 100ML.BAG IVPB SCH ×2 (07:02→08:25)
[2018-01-22 07:25] LABS: HCT 19.6 % (39.0-53.0)
[2018-01-22] MEDS ORDERED: POTASSIUM BICARBONATE/CIT AC 20 MEQ TABLET.EFF PO ONE (07:40)
[2018-01-22] MEDS: IOPAMIDOL-300 CONTRAST 30 ML VIAL (ORAL USE) PO PRN ×2 (08:21→09:20)
[2018-01-22] MEDS: SODIUM CHLORIDE 0.9% 1,000 ML IV SCH ×3 (08:26→23:40)
[2018-01-22] MEDS: NICOTINE 21MG/24HR PATCH TRANSDERM SCH (08:26)
[2018-01-22] MEDS: POTASSIUM CHLORIDE 20 MEQ in WATER FOR INJECTION 1 100ML.BAG IVPB SCH ×2 (08:26→10:09)
[2018-01-22] MEDS ORDERED: ALBUTEROL NEBULIZED 2.5 MG/3 ML INHALATION PRN (10:31)
--- NOTE | 2018-01-22 10:35 | P.PN ---
Subjective Progress Note Date: 01/22/18 Principal diagnosis: weakness Patient is a 72-year-old male with history of tobacco and alcohol abuse but no medical history who presented to the ER via EMS after falling to the ground and being unable to recover. In the ER he underwent an extensive evaluation. They did a CT brain which showed some chronic sinusitis site with age-appropriate atrophy. Chest x-ray showed old granulomatous disease. Vital signs were within normal limits. Initial laboratory analysis shows severe anemia with a hemoglobin of 5.5 and elevated troponin at 0.147.. He was ordered 1 unit of packed red blood cells. He was also found to have a significantly low potassium level and potassium was replaced. Arrangements are made for admission. Oncology was consulted. Initial evaluation showed a hypoproliferative anemia consistent with anemia of chronic disease and an elevated ferritin level. Patient has not been having bowel movements and a fecal occult has not been obtained yet. He was seen by neurology. The morning after admission his potassium was again low and was aggressively replaced. His hemoglobin had dropped from 7.2 posttransfusion to 6 and 1 additional unit of packed red blood cells was ordered. Patient seen and examined at bedside. Still feeling significantly weak and like he can't stand, no nausea, no vomiting, no bowel movement yet between yesterday and today. No chest pain or shortness of breath. Objective - Vital Signs Vital signs: Vital Signs Temp 97.8 F 01/22/18 08:00 Pulse 66 01/22/18 08:00 Resp 18 01/22/18 04:00 BP 97/57 01/22/18 08:00 Pulse Ox 96 01/22/18 08:00 Intake & Output 01/21/18 01/22/18 01/22/18 18:59 06:59 18:59 Intake Total 978 160 240 Output Total 300 Balance 978 -140 240 Weight 58.967 kg 58.5 kg Intake: Intake, IV Titration 160 Amount Sodium Chloride 0.9% 1, 160 000 ml @ 100 mls/hr IV . Q10H ONE Rx#:[id number] Oral 358 240 Blood Product 620 Rc Pheresis As-3 Unit 310 [id number] Output: Urine 300 Other: Voiding Method Toilet Toilet Urinal Urinal - Exam General: non toxic, no distress, appears older than stated age, cachectic Derm: warm, dry Head: atraumatic, normocephalic, symmetric Eyes: EOMI, no lid lag, anicteric sclera Mouth: no lip lesion, mucus membranes moist Cardiovascular: S1S2 reg, no murmur, positive posterior tibial pulse bilateral, Lungs: Coarse breath sounds bilaterally with rhonchi, no accessory muscle use Abdominal: soft, nontender to palpation, no guarding, no appreciable organomegaly Ext: no gross muscle atrophy, no edema, no contractures Neuro: CN II-XI grossly intact, no focal neuro deficits Psych: Alert, oriented, appropriate affect - Labs CBC & Chem 7: 01/22/18 05:45 01/22/18 05:45 Labs: Abnormal Lab Results - Last 24 Hours (Table) 01/21/18 01/21/18 01/21/18 Range/Units 04: 06:00 10:50 RBC (4.30-5.90) m/uL Hgb (13.0-17.5) gm/dL Hct (39.0-53.0) % MCHC (31.0-37.0) g/dL RDW (11.5-15.5) % Potassium (3.5-5.1) mmol/L Carbon Dioxide (22-30) mmol/L BUN (9-20) mg/dL Creatinine (0.66-1.25) mg/dL Calcium (8.4-10.2) mg/dL Iron 50 L (65-175) ug/dL TIBC 201 L (228-460) ug/dL Ferritin 693.5 H (22.0-322.0) ng/mL Lactate Dehydrogenase (313-618) U/L Troponin I 0.140 H* (0.000-0.034) ng/mL Total Protein (PEP) (6.2-8.2) g/dL Urine Protein (Negative) Urine Ketones (Negative) Crossmatch See Detail 01/21/18 01/21/18 01/21/18 Range/Units 10:58 15:08 15:08 RBC 2.52 L (4.30-5.90) m/uL Hgb 7.2 L D (13.0-17.5) gm/dL Hct 23.6 L (39.0-53.0) % MCHC 30.7 L (31.0-37.0) g/dL RDW 23.2 H (11.5-15.5) % Potassium (3.5-5.1) mmol/L Carbon Dioxide (22-30) mmol/L BUN (9-20) mg/dL Creatinine (0.66-1.25) mg/dL Calcium (8.4-10.2) mg/dL Iron (65-175) ug/dL TIBC (228-460) ug/dL Ferritin (22.0-322.0) ng/mL Lactate Dehydrogenase 675 H (313-618) U/L Troponin I 0.106 H* (0.000-0.034) ng/mL Total Protein (PEP) (6.2-8.2) g/dL Urine Protein (Negative) Urine Ketones (Negative) Crossmatch 01/21/18 01/21/18 01/22/18 Range/Units 15:08 21:20 05:45 RBC 2.16 L (4.30-5.90) m/uL Hgb 6.0 L* (13.0-17.5) gm/dL Hct 19.6 L* (39.0-53.0) % MCHC 30.3 L (31.0-37.0) g/dL RDW 24.4 H (11.5-15.5) % Potassium (3.5-5.1) mmol/L Carbon Dioxide (22-30) mmol/L BUN (9-20) mg/dL Creatinine (0.66-1.25) mg/dL Calcium (8.4-10.2) mg/dL Iron (65-175) ug/dL TIBC (228-460) ug/dL Ferritin (22.0-322.0) ng/mL Lactate Dehydrogenase (313-618) U/L Troponin I (0.000-0.034) ng/mL Total Protein (PEP) 5.1 L (6.2-8.2) g/dL Urine Protein Trace H (Negative) Urine Ketones Trace H (Negative) Crossmatch 01/22/18 Range/Units 05:45 RBC (4.30-5.90) m/uL Hgb (13.0-17.5) gm/dL Hct (39.0-53.0) % MCHC (31.0-37.0) g/dL RDW (11.5-15.5) % Potassium 2.4 L* (3.5-5.1) mmol/L Carbon Dioxide 31 H (22-30) mmol/L BUN 6 L (9-20) mg/dL Creatinine 0.52 L (0.66-1.25) mg/dL Calcium 6.9 L (8.4-10.2) mg/dL Iron (65-175) ug/dL TIBC (228-460) ug/dL Ferritin (22.0-322.0) ng/mL Lactate Dehydrogenase (313-618) U/L Troponin I (0.000-0.034) ng/mL Total Protein (PEP) (6.2-8.2) g/dL Urine Protein (Negative) Urine Ketones (Negative) Crossmatch Assessment and Plan Assessment: Symptomatic anemia, hypoproliferative - labs show element of chronic disease - CT chest/abd/pelvis to r/u malignancy -THS,B12, and folate normal - LDH and alk phos elevated -Follow CBC in a.m. -additional 1 unit of packed red blood cells -hematology oncology recs appreciated Severe Hypokalemia -Magnesium replaced -Replace with 40 IV and 40 PO -Recheck this afternoon -tele Generalized Lower extremity weakness -Fall precautions -PT/OT evaluation - Await neuro recs Elevated troponin,due to demand ischemia - echo normal, no furhter testing at this time. Tobacco abuse - cessation - nicotine replacement ETOH abuse - CIGA protocol - thiamine and folic acid supplementation Severe protein calorie malnutrition -added MVI -dietitian recs CODE STATUS:DNR DVT prophylaxis: Heparin Discussed with: Patient, nursing Anticipated discharge date: 24-[address]: home with home [facility] A total of 35 minutes was spent on the care of this complex patient more than 50 % of the time was spent in counseling and care coordination.
--- NOTE | 2018-01-22 11:06 | CT ---
EXAMINATION TYPE: CT ChestAbdPelvis w con DATE OF EXAM: 01/22/2018 COMPARISON: NONE HISTORY: weight loss, malignancy, anemia. CT DLP: 1425 mGycm. Automated Exposure Control for Dose Reduction was Utilized. CONTRAST: CT scan of the thorax, abdomen and pelvis is performed with IV Contrast, patient injected with 100 mL of Isovue 300. FINDINGS: LUNGS: There is a focal consolidation with air bronchograms within the superior segment of the left l ower lobe that appears to retract the interlobar fissure and possibly extend across the fissural bord er on sagittal series 6 image 39 corresponding to axial series 4 image 28. There are some spiculated edges and somewhat nodular peripheral morphology therefore underlying malignancy and possible endobro nchial obstruction with downstream obstructive postobstructive atelectasis should be considered. Ther e is background moderate centrilobular emphysematous change. There are scattered areas of groundglass opacity along the right interlobar fissure on series 4 image 27 and within the superior segment of t he right lower lobe on image 33. There are small bilateral pleural effusions, right greater than left and bilateral subsegmental compr essive atelectasis. Loculated component of the pleural effusion is seen at the left lung base. Benign calcified granulomas are seen bilaterally. The tracheobronchial tree is patent. MEDIASTINUM: There are no greater than 1 cm hilar or mediastinal lymph nodes. Calcified mediastinal lymph nodes are indicative of prior granulomatous disease. No pericardial effusion is seen. Moderate vessel coronary calcifications are noted. OTHER: There is a small hiatal hernia appreciated. LIVER/GB: Hepatic parenchyma is diffusely hypoattenuated in comparison to that of the spleen, most co mmonly seen in hepatic steatosis. This finding limits evaluation for hepatic masses. Additionally the re is a more focal fat attenuated geographic region along the fissure for the falciform ligament is I Vb of the liver measuring 2.2 x 1.5 cm. This could relate to more advanced focal fatty infiltration o r hepatic lesion. No gross evidence of hepatic mass is seen. No intrahepatic biliary ductal dilatatio n. No cholelithiasis. Gallbladder is partially contracted. PANCREAS: No significant abnormality is seen. SPLEEN: No significant abnormality is seen. ADRENALS: No significant abnormality is seen. KIDNEYS: Kidneys enhance homogeneously.. BOWEL: There is thickening of the sigmoid colon and minimal surrounding inflammatory fat stranding. N umerous sigmoid diverticula are seen. A focal hypoattenuated area measuring 1.5 cm is seen submucosal ly within the sigmoid colon on series 3 image 106 and on coronal series 5 image 45. This could relate to a small submucosal abscess given the appearance on coronal imaging. Alternatively this could rela te to a small submucosal mass or thickened prominent haustra. GENITAL ORGANS: No gross abnormality seen. LYMPH NODES: No greater than 1cm abdominal or pelvic lymph nodes are appreciated. OSSEOUS STRUCTURES: Originating from the intervertebral disc space of T10-T11 there is a calcified di sc fragment is extruded into the epidural space creating mild spinal canal stenosis as it extends [place] ng the T11 vertebral body. There is minimal (grade 1) anterolisthesis of L4 on L5 without pars intera rticularis defects. Small probable vertebral body hemangiomas are seen of L3 and L4. OTHER: There is extensive atherosclerosis of the abdominal aorta and its branches. Generalized body w all edema/anasarca is noted. IMPRESSION: 1. Findings concerning for mild acute sigmoid diverticulitis with focal hypoattenuated region that ma y represent a small submucosal abscess, small submucosal mass, or less likely prominent haustra. [place] noscopy as recommended for direct visualization. No evidence of proximal obstruction. 2. Segmental atelectasis of the superior segment of the left lower lobe with spiculated margin. Posto bstructive atelectasis from underlying nodule/neoplasm is a consideration. Further evaluation with PE T CT or bronchoscopy could be performed in this high-risk patient with emphysema. 3. Hepatic steatosis appearing at least moderate degree with geographic region that may represent mul tifocal advanced fatty infiltration or solitary hepatic lesion. 4. Extensive atherosclerosis of the abdominal aorta and its branches. 5. Calcified fragment originating from the 210 T11 disc interspace extruded into the spinal canal cre ating mild spinal canal stenosis. This is favored to represent an extruded calcified disc fragment.
[2018-01-22] MEDS: MULTIVITAMINS, THERA 1 EACH TAB PO SCH (12:33)
[2018-01-22] MEDS: FOLIC ACID 1 MG TAB PO SCH (12:33)
[2018-01-22] MEDS: THIAMINE 100 MG TAB PO SCH ×2 (12:33→17:19)
--- NOTE | 2018-01-22 13:34 | P.PN ---
Subjective Progress Note Date: 01/22/18 Principal diagnosis: Anemia Patient seen and evaluated Reviewed CT Scan: Hemoglobin 6 today. Objective - Vital Signs Vital signs: Vital Signs Temp 97.8 F 01/22/18 08:00 Pulse 66 01/22/18 08:00 Resp 18 01/22/18 04:00 BP 97/57 01/22/18 08:00 Pulse Ox 96 01/22/18 08:00 Intake & Output 01/21/18 01/22/18 01/22/18 18:59 06:59 18:59 Intake Total 978 160 240 Output Total 300 Balance 978 -140 240 Weight 58.967 kg 58.5 kg Intake: Intake, IV Titration 160 Amount Sodium Chloride 0.9% 1, 160 000 ml @ 100 mls/hr IV . Q10H ONE Rx#:[id number] Oral 358 240 Blood Product 620 Rc Pheresis As-3 Unit 310 [id number] Output: Urine 300 Other: Voiding Method Toilet Toilet Urinal Urinal - Exam General: chronically ill appearing, no distress, appears at stated age, cachetic Head: atraumatic, normocephalic Eyes: EOMI, anicteric sclera, ENT: No mucocytis, pharyngeal edema Neck:supple Mouth: no lip lesion, mucus membranes dry, poor dentition Cardiovascular: S1S2 reg, no murmur, positive posterior tibial pulse bilateral, 2+ edema left LE, no edema R LE, capillary refill less than 2 seconds Lungs: faint wheeze left base, no rhonchi, no rales , no accessory muscle use Abdominal: soft, nontender, normal bowel sounds Ext: no gross muscle atrophy, muscle strength 5 out of 5upper extremities grossly and 3/5 in lower extremities bilaterally Neuro: CN II-XI grossly intact Psych: Alert, oriented, appropriate affect Skin: no rashes/lesions no ecchymoses, warm, dry, flaking - Labs CBC & Chem 7: 01/22/18 05:45 01/22/18 05:45 Labs: Abnormal Lab Results - Last 24 Hours (Table) 01/21/18 01/21/18 01/21/18 Range/Units 04:18 06:00 15:08 RBC (4.30-5.90) m/uL Hgb (13.0-17.5) gm/dL Hct (39.0-53.0) % MCHC (31.0-37.0) g/dL RDW (11.5-15.5) % Potassium (3.5-5.1) mmol/L Carbon Dioxide (22-30) mmol/L BUN (9-20) mg/dL Creatinine (0.66-1.25) mg/dL Calcium (8.4-10.2) mg/dL Iron 50 L (65-175) ug/dL TIBC 201 L (228-460) ug/dL Ferritin 693.5 H (22.0-322.0) ng/mL Lactate Dehydrogenase (313-618) U/L Troponin I 0.106 H* (0.000-0.034) ng/mL Total Protein (PEP) (6.2-8.2) g/dL Urine Protein (Negative) Urine Ketones (Negative) Crossmatch See Detail 01/21/18 01/21/18 01/21/18 Range/Units 15:08 15:08 21:20 RBC (4.30-5.90) m/uL Hgb (13.0-17.5) gm/dL Hct (39.0-53.0) % MCHC (31.0-37.0) g/dL RDW (11.5-15.5) % Potassium (3.5-5.1) mmol/L Carbon Dioxide (22-30) mmol/L BUN (9-20) mg/dL Creatinine (0.66-1.25) mg/dL Calcium (8.4-10.2) mg/dL Iron (65-175) ug/dL TIBC (228-460) ug/dL Ferritin (22.0-322.0) ng/mL Lactate Dehydrogenase 675 H (313-618) U/L Troponin I (0.000-0.034) ng/mL Total Protein (PEP) 5.1 L (6.2-8.2) g/dL Urine Protein Trace H (Negative) Urine Ketones Trace H (Negative) Crossmatch 01/22/18 01/22/18 Range/Units 05:45 05:45 RBC 2.16 L (4.30-5.90) m/uL Hgb 6.0 L* (13.0-17.5) gm/dL Hct 19.6 L* (39.0-53.0) % MCHC 30.3 L (31.0-37.0) g/dL RDW 24.4 H (11.5-15.5) % Potassium 2.4 L* (3.5-5.1) mmol/L Carbon Dioxide 31 H (22-30) mmol/L BUN 6 L (9-20) mg/dL Creatinine 0.52 L (0.66-1.25) mg/dL Calcium 6.9 L (8.4-10.2) mg/dL Iron (65-175) ug/dL TIBC (228-460) ug/dL Ferritin (22.0-322.0) ng/mL Lactate Dehydrogenase (313-618) U/L Troponin I (0.000-0.034) ng/mL Total Protein (PEP) (6.2-8.2) g/dL Urine Protein (Negative) Urine Ketones (Negative) Crossmatch Assessment and Plan Plan: Assessment and Recommendations: 1. Severe Normocytic Anemia: - Likely a result of malnutrition, ETOH, possible underlying etiology - Full Anemia WOrk-up in progress - Transfuse Less than 7 - If appears to be component of GI blood loss rec GI evaluation and Work-up. - CT Scan reviewed agree with need for GI Work-up, Pulmonary evaluation is resonable as well considering the look of post-obstructive pneumonia in CT scan 2. ETOH/TObacco Abuse: High Risk Lifestyle without preventative healthcare 3. Weight Loss and Malnutrition 4. Myopathy of lower extremities possibily secondary to Number 3 or ther underlying etiology 5. Hypokalemia: - supp per primary team 6. Anorexia, Severe protein calorie malnutrition Plan: - Await Pulmonary and GI Evaluation - Continue with supportive transfusions and care - All other issues per primary team.
[2018-01-22 14:14] LABS: Anisocytosis Marked; Basophils % (A) 0 %; Eosinophils # (A) 0.1 k/uL (0-0.7); Eosinophils % (A) 1 %; HCT 22.3 % (39.0-53.0); Hypochromasia Marked; Lymphocytes # (A) 0.7 k/uL (1.0-4.8); Lymphocytes % (A) 16 %; MCH 28.6 pg (25.0-35.0); MCHC 29.3 g/dL (31.0-37.0); Macrocytosis Marked; Mean Platelet Volume 10.6; Microcytosis Slight; Monocytes # (A) 0.4 k/uL (0-1.0); Monocytes % (A) 8 %; Neutrophils # (A) 3.3 k/uL (1.3-7.7); Neutrophils % (A) 74 %; Platelet Count 280 k/uL (150-450); Poikilocytosis Marked; RBC 2.29 m/uL (4.30-5.90); WBC 4.4 k/uL (3.8-10.6)
[2018-01-22 14:15] LABS: INR 1.1 (<1.2); Prothrombin Time 10.4 sec (9.0-12.0)
[2018-01-22 14:17] LABS: HGB 6.5 gm/dL (13.0-17.5); RDW 27.2 % (11.5-15.5)
[2018-01-22 14:18] LABS: ALT 30 U/L (21-72); AST 68 U/L (17-59); Albumin 2.5 g/dL (3.5-5.0); Alkaline Phosphatase 148 U/L (38-126); Anion Gap 5 mmol/L; Blood Urea Nitrogen 6 mg/dL (9-20); Calcium 6.9 mg/dL (8.4-10.2); Carbon Dioxide 31 mmol/L (22-30); Chloride 102 mmol/L (98-107); Glucose 98 mg/dL (74-99); Potassium 3.9 mmol/L (3.5-5.1); Sodium 138 mmol/L (137-145); Total Bilirubin 0.4 mg/dL (0.2-1.3); Total Protein 5.1 g/dL (6.3-8.2)
[2018-01-22 14:19] LABS: MCV 97.7 fL (80.0-100.0)
[2018-01-22 14:47] LABS: Polychromasia Present; Toxic Granulation Present
[2018-01-22] MEDS ORDERED: FUROSEMIDE 10 MG/ML 4 ML VIAL IV PRN (19:21)
--- NOTE | 2018-01-22 20:44 | MR ---
EXAMINATION TYPE: MR lumbar spine wo con DATE OF EXAM: 01/22/2018 COMPARISON: NONE HISTORY: LEG WEAKNESS TECHNIQUE: T1 and T2 axial and sagittal images of the lumbar spine are submitted. FINDINGS: There is no abnormal signal seen within the visualized spinal cord or paraspinal soft tissu es. Muscular atrophy noted. Suggestion of bilateral small pleural effusion and left basilar consolida tion. Alignment is anatomic. There is diffuse heterogeneous marrow signal alteration. There is a simple chris earing cyst posterior to the L5 right facet measuring 1 cm. At L1-2 there is there is a small left paracentral disc protrusion. Hypertrophic change of the facets . No canal stenosis or foraminal encroachment. At L2-3 there is hypertrophic change facets. No canal stenosis or focal herniation. At L3-4 there is mild circumferential disc bulging with hypertrophic change of the facets. No canal s tenosis or disc herniation. Mild foraminal encroachment. At L4-5 there is very minimal anterolisthesis with advanced facet arthropathy. Circumferential and br oad-based central disc protrusion with ligamentum flavum hypertrophy results in moderate canal stenos is. Moderate bilateral foraminal encroachment bilaterally. There is bilateral lateral recess stenosis . At L5-S1 there is facet arthropathy. No foraminal encroachment or disc herniation. Mild central disc bulging with no canal stenosis. IMPRESSION: 1. Throughout all the visualized osseous structures there is diffuse heterogeneous marrow signal in a pattern. Differential diagnosis would include diffuse bony metastases. Recommend post contrast imagi ng. 2. Multilevel moderate degenerative disc disease with grade 1 anterolisthesis L4 on L5 secondary to a dvanced facet arthropathy. Disc bulging with hypertrophic changes at this level results in moderate c anal stenosis and bilateral moderate neural foraminal encroachment. 3. Disc bulging L3-L4 but no canal stenosis. Mild bilateral foraminal encroachment. 4. Mild central disc bulging L5-S1 with no canal stenosis or foraminal encroachment. 5. Simple appearing 1 cm cyst at the level of L5 posterior to the right facet joint. 6. Anterior to the sacrum there is apparent colonic bowel wall thickening. If there is concern for ma lignancy correlate with direct visualization or barium enema as clinically warranted.
[2018-01-22] MEDS: guaiFENesin 600 MG TABLET.ER PO SCH (20:54)
--- NOTE | 2018-01-22 21:41 | P.PN ---
Subjective Progress Note Date: 01/22/18 The patient is a 72-year-old man who was admitted to the hospital with history of chronic EtOH abuse and progressive weakness particularly in the legs over the last 6 months. She was admitted with severe anemia with hemoglobin of 5.5. He had a fall. He had an MRI of the lumbar spine today which showed diffuse heterogeneous marrow signal in a pattern which could be seen in bony metastases. Patient also had moderate degenerative disc disease and disc bulging. He is also concerned for some bowel wall thickening anterior to the sacrum. The patient has no new complaints. He is frustrated that he has been going undergoing many tests today. Denies any new weakness. He denies any pain. Objective - Vital Signs Vital signs: Vital Signs Temp 97.7 F 01/22/18 21: Pulse 76 01/22/18:18 Resp 20 01/22/18 21:18 BP 130/74 01/22/18 21:18 Pulse Ox 97 01/22/18 21:18 Intake & Output 01/22/18 01/22/18 01/23/18 06:59 18:59 06:59 Intake Total 160 240 310 Output Total 300 Balance -140 240 310 Weight 58.5 kg Intake: Intake, IV Titration 160 Amount Sodium Chloride 0.9% 1, 160 000 ml @ 100 mls/hr IV . Q10H [facility] Rx#:[id number] Oral 240 Blood Product 0 310 Rc Pheresis 2 As3 Unit 0 310 [id number] Rc Pheresis 2 As3 Unit 0 [id number] Output: Urine 300 Other: Voiding Method Toilet Toilet Urinal Urinal # Voids 1 # Bowel Movements 1 - Constitutional General appearance: Present: cooperative - EENT ENT: Present: hearing grossly normal - Respiratory Respiratory: bilateral: CTA - Cardiovascular Rhythm: regular - Neurologic Neurologic: Present: CNII-XII intact - Musculoskeletal Musculoskeletal: Present: generalized weakness - Psychiatric Psychiatric: Present: A&O x's 3 - Labs CBC & Chem 7: 01/22/18 13:34 01/22/18 13:34 Labs: Abnormal Lab Results - Last 24 Hours (Table) 01/21/18 01/21/18 01/21/18 Range/Units 04:18 06:00 10:50 RBC (4.30-5.90) m/uL Hgb (13.0-17.5) gm/dL Hct (39.0-53.0) % MCHC (31.0-37.0) g/dL RDW (11.5-15.5) % Lymphocytes # (1.0-4.8) k/uL Potassium (3.5-5.1) mmol/L Carbon Dioxide (22-30) mmol/L BUN (9-20) mg/dL Creatinine (0.66-1.25) mg/dL Calcium (8.4-10.2) mg/dL AST (17-59) U/L Alkaline Phosphatase (38-126) U/L Troponin I 0.140 H* (0.000-0.034) ng/mL Total Protein (6.3-8.2) g/dL Albumin (3.5-5.0) g/dL RBC Folate 1,309 H (280 - 791) ng/mL Free [place] LC, Quant (0.33-1.94) mg/dL Crossmatch See Detail 01/21/18 01/22/18 01/22/18 Range/Units 15:08 05:45 05:45 RBC 2.16 L (4.30-5.90) m/uL Hgb 6.0 L* (13.0-17.5) gm/dL Hct 19.6 L* (39.0-53.0) % MCHC 30.3 L (31.0-37.0) g/dL RDW 24.4 H (11.5-15.5) % Lymphocytes # (1.0-4.8) k/uL Potassium 2.4 L* (3.5-5.1) mmol/L Carbon Dioxide 31 H (22-30) mmol/L BUN 6 L (9-20) mg/dL Creatinine 0.52 L (0.66-1.25) mg/dL Calcium 6.9 L (8.4-10.2) mg/dL AST (17-59) U/L Alkaline Phosphatase (38-126) U/L Troponin I (0.000-0.034) ng/mL Total Protein (6.3-8.2) g/dL Albumin (3.5-5.0) g/dL RBC Folate (280 - 791) ng/mL Free [place] LC, Quant 2.27 H (0.33-1.94) mg/dL Crossmatch 01/22/18 01/22/18 Range/Units 13:34 13:34 RBC 2.29 L (4.30-5.90) m/uL Hgb 6.5 L* (13.0-17.5) gm/dL Hct 22.3 L (39.0-53.0) % MCHC 29.3 L (31.0-37.0) g/dL RDW 27.2 H (11.5-15.5) % Lymphocytes # 0.7 L (1.0-4.8) k/uL Potassium (3.5-5.1) mmol/L Carbon Dioxide 31 H (22-30) mmol/L BUN 6 L (9-20) mg/dL Creatinine 0.51 L (0.66-1.25) mg/dL Calcium 6.9 L (8.4-10.2) mg/dL AST 68 H (17-59) U/L Alkaline Phosphatase 148 H (38-126) U/L Troponin I (0.000-0.034) ng/mL Total Protein 5.1 L (6.3-8.2) g/dL Albumin 2.5 L (3.5-5.0) g/dL RBC Folate (280 - 791) ng/mL Free [place] LC, Quant (0.33-1.94) mg/dL Crossmatch Assessment and Plan (1) Severe anemia Current Visit: Yes Status: Acute SNOMED Code(s): 182318590 (2) Bilateral leg weakness Current Visit: Yes Status: Acute SNOMED Code(s): 9312247 (3) ETOH abuse Current Visit: Yes Status: Acute SNOMED Code(s): 32928500 (4) Hypokalemia Current Visit: Yes Status: Acute SNOMED Code(s): 81795305 Plan: The patient is a 72-year-old man with chronic alcohol abuse who presents with progressive weakness over a period of 6 months primarily involving his legs and general medical debility. He was admitted to the hospital with weakness secondary to weight loss and malnutrition, hypokalemia, and severe anemia The patient the patient had total creatinine kinase which was unremarkable. It is unlikely that his weakness is due to myopathy. His weakness is likely due to general medical debility and malnutrition. He has had an MRI of the lumbar spine which is suspicious for possible bone metastases. Oncology and GI are following the patient.
[2018-01-23] MEDS: PANTOPRAZOLE 40 MG TABLET PO SCH (06:31)
[2018-01-23] MEDS: SODIUM CHLORIDE 0.9% 1,000 ML IV SCH ×2 (06:33→14:45)
[2018-01-23] MEDS: NICOTINE 21MG/24HR PATCH TRANSDERM SCH (09:06)
[2018-01-23] MEDS: guaiFENesin 600 MG TABLET.ER PO SCH ×2 (09:06→20:45)
[2018-01-23] MEDS: FOLIC ACID 1 MG TAB PO SCH (12:21)
[2018-01-23] MEDS: THIAMINE 100 MG TAB PO SCH ×2 (12:21→17:39)
[2018-01-23] MEDS: MULTIVITAMINS, THERA 1 EACH TAB PO SCH (12:21)
[2018-01-23 13:18] LABS: Anion Gap 5 mmol/L; Blood Urea Nitrogen 7 mg/dL (9-20); Carbon Dioxide 32 mmol/L (22-30); Chloride 101 mmol/L (98-107); Glucose 79 mg/dL (74-99); Potassium 3.4 mmol/L (3.5-5.1); Sodium 138 mmol/L (137-145)
[2018-01-23 13:24] LABS: Calcium 6.5 mg/dL (8.4-10.2)
[2018-01-23 13:31] LABS: Anisocytosis Moderate; Basophils % (A) 0 %; Eosinophils # (A) 0.1 k/uL (0-0.7); Eosinophils % (A) 1 %; HCT 28.7 % (39.0-53.0); Hypochromasia Moderate; Lymphocytes # (A) 0.8 k/uL (1.0-4.8); Lymphocytes % (A) 21 %; MCH 29.7 pg (25.0-35.0); MCHC 32.6 g/dL (31.0-37.0); Macrocytosis Slight; Monocytes # (A) 0.4 k/uL (0-1.0); Monocytes % (A) 10 %; Neutrophils # (A) 2.5 k/uL (1.3-7.7); Neutrophils % (A) 66 %; Platelet Count 234 k/uL (150-450); Poikilocytosis Marked; RBC 3.15 m/uL (4.30-5.90); WBC 3.8 k/uL (3.8-10.6)
[2018-01-23 13:33] LABS: HGB 9.3 gm/dL (13.0-17.5); MCV 90.9 fL (80.0-100.0)
[2018-01-23] MEDS ORDERED: POTASSIUM CHLORIDE ER 20 MEQ TAB.ER PO STA (14:07)
--- NOTE | 2018-01-23 14:15 | P.PN ---
Subjective Progress Note Date: 01/23/18 Principal diagnosis: follow up for anemia, and fall patient seen and examined, denies any chest pain or trouble breathing, has no questions today, was updated regarding the plan of care, and possible future tests, along with available results Objective - Vital Signs Vital signs: Vital Signs Temp 98 F 01/23/18 08:00 Pulse 71 01/23/18 08:00 Resp 20 01/23/18 08:00 BP 117/71 01/23/18 08:00 Pulse Ox 92 L 01/23/18 08:36 Intake & Output 01/22/18 01/23/18 01/23/18 18:59 06:59 18:59 Intake Total 252 144 5713 Output Total 1200 500 Balance 240 -580 600 Intake: IV 1000 Sodium Chloride 0.9% 1, 1000 000 ml @ 125 mls/hr IV . Q8H [facility] Rx#:[id number] Oral 240 100 Blood Product 0 620 Rc Pheresis 2 As3 Unit 0 310 [id number] Rc Pheresis 2 As3 Unit 310 [id number] Output: Urine 1200 500 Other: Voiding Method Toilet Toilet Toilet Urinal Urinal Urinal # Voids 1 1 # Bowel Movements 1 1 - Exam General: no acute distress, appears older than stated age, cachectic, conversant , pleasant Cardiovascular:normal S1S2 regular rate and rhythm , no murmur Lungs: Coarse breath sounds bilaterally with rhonchi, no accessory muscle use Abdominal: soft, lax, nontender, no guarding, no organomegaly appreciated, BS positive Extremities: no gross muscle atrophy, no edema, no tenderness to palpation of the calf muscles, cap refill immediate Neuro: CN II-XII grossly intact, no focal neuro deficits Psych: Alert, oriented, appropriate affect - Labs CBC & Chem 7: 01/23/18 06:09 01/23/18 06:09 Labs: Abnormal Lab Results - Last 24 Hours (Table) 01/21/18 01/21/18 01/21/18 Range/Units 04: 06:00 10:50 RBC (4.30-5.90) m/uL Hgb (13.0-17.5) gm/dL Hct (39.0-53.0) % MCHC (31.0-37.0) g/dL RDW (11.5-15.5) % Lymphocytes # (1.0-4.8) k/uL Carbon Dioxide (22-30) mmol/L BUN (9-20) mg/dL Creatinine (0.66-1.25) mg/dL Calcium (8.4-10.2) mg/dL AST (17-59) U/L Alkaline Phosphatase (38-126) U/L Troponin I 0.140 H* (0.000-0.034) ng/mL Total Protein (6.3-8.2) g/dL Albumin (3.5-5.0) g/dL RBC Folate 1,309 H (280 - 791) ng/mL Free [place] LC, Quant (0.33-1.94) mg/dL Crossmatch See Detail 01/21/18 01/22/18 01/22/18 Range/Units 15:08 13:34 13:34 RBC 2.29 L (4.30-5.90) m/uL Hgb 6.5 L* (13.0-17.5) gm/dL Hct 22.3 L (39.0-53.0) % MCHC 29.3 L (31.0-37.0) g/dL RDW 27.2 H (11.5-15.5) % Lymphocytes # 0.7 L (1.0-4.8) k/uL Carbon Dioxide 31 H (22-30) mmol/L BUN 6 L (9-20) mg/dL Creatinine 0.51 L (0.66-1.25) mg/dL Calcium 6.9 L (8.4-10.2) mg/dL AST 68 H (17-59) U/L Alkaline Phosphatase 148 H (38-126) U/L Troponin I (0.000-0.034) ng/mL Total Protein 5.1 L (6.3-8.2) g/dL Albumin 2.5 L (3.5-5.0) g/dL RBC Folate (280 - 791) ng/mL Free [place] LC, Quant 2.27 H (0.33-1.94) mg/dL Crossmatch Assessment and Plan Assessment: Patient is a 72-year-old male with history of tobacco and alcohol abuse but no medical history who presented to the ER via EMS after falling to the ground and being unable to recover. In the ER he underwent an extensive evaluation. They did a CT brain which showed some chronic sinusitis site with age-appropriate atrophy. Chest x-ray showed old granulomatous disease. Vital signs were within normal limits. Initial laboratory analysis shows severe anemia with a hemoglobin of 5.5 and elevated troponin at 0.147.. He was ordered 1 unit of packed red blood cells. He was also found to have a significantly low potassium level and potassium was replaced. Arrangements are made for admission. Oncology was consulted. Initial evaluation showed a hypoproliferative anemia consistent with anemia of chronic disease and an elevated ferritin level. Patient has not been having bowel movements and a fecal occult has not been obtained yet. He was seen by neurology. The morning after admission his potassium was again low and was aggressively replaced. His hemoglobin had dropped from 7.2 posttransfusion to 6 and 1 additional unit of packed red blood cells was ordered. Further discussion with pulmonary service and reviewing CAT scan of the chest revealed no concerning areas of any nodules or masses that warrants biopsy, atelectasis is thought to be due to probably chronic repeated aspirations with the patient history of alcohol abuse. Plans from GI service to perform colonoscopy on Thursday 01/25 Plan: Symptomatic anemia, hypoproliferative - labs show element of chronic disease - CT chest/abd/pelvis showed an area in the sigmoid concerning for malignancy Chest CT reviewed with pulmonary service there is no concerns for neoplasm or nodules that could be biopsied at this point Hepatic steatosis on abdominal CT, with an area concerning for solitary hepatic lesion -TSH,B12, and folate normal - LDH and alk phos elevated -Follow CBC --> hemoglobin up today to 9.3 s/p total of 2 units of blood -hematology oncology recs appreciated Severe Hypokalemia, secondary to poor nutritional status replace as needed Generalized Lower extremity weakness -Fall precautions -PT/OT evaluation - neuro workup , believes its part of generalized debility without evidence of focal neurological deficits MRI of the lumbar spine suggested bony changes concerning for diffuse bony metastasis and also picked up on bowel thickening concerning for possible malignancy Elevated troponin,due to demand ischemia - echo normal, no further testing at this time. Tobacco abuse - cessation - nicotine replacement ETOH abuse - [facility] protocol - thiamine and folic acid supplementation Severe protein calorie malnutrition -added MVI -dietitian recs DVT prophylaxis: Heparin Anticipated discharge place: home with home health
--- NOTE | 2018-01-23 15:47 | P.CNPUL ---
History of Present Illness Consult date: 01/23/18 Reason for consult: abnormal CXR/CT History of present illness: This is a 72-year-old male patient, a chronic smoker, a chronic alcoholic, came into the hospital as the patient was becoming progressively weak to the point where he was unable to perform activities of daily today life. He came in to the emergency with generalized weakness, falling to the ground and he was unable to recover himself. Nevertheless there was no loss of consciousness or syncope. The patient in the emergency department was seen and evaluated. CAT scan of the brain was done that showed age-related atrophy and some chronic sinusitis. Chest x-ray was consistent with pulmonary granulomas consistent with old infection. The patient was found to profoundly anemic with a hemoglobin of 5.5. Troponin was minimally elevated at 0.1. The patient got transfused with packed RBC. Subsequently the patient got admitted to the medical floor and pulmonary consultation was requested knowing that the patient had a CAT scan of the chest and the findings were abnormal. Note that the patient had a full CAT scan of the chest abdomen and pelvis. CAT scan of the chest showed a limited air bronchogram involving the superior segment of the left lower lobe along with some fluid within the interlobar fissure in addition to small bibasilar pulmonary effusions. There is advanced background emphysema in addition to apical scarring and pulmonary granulomas 2 of them are seen on the right. There is also evidence of segmental compression atelectasis in lung bases bilaterally. The tracheobronchial tree was patent. Mediastinum showed some old mediastinal lymph node calcification suggestive of prior granulomatous disease. No pericardial effusion. Also, the patient showed hepatic steatosis, fatty infiltration of the liver, extensive atherosclerosis of the abdominal aorta and its branches, mild spinal canal stenosis at the level of T10-T11 and evidence of numerous sigmoid diverticulosis and questionable mild component of acute sigmoid diverticulitis and direct colonoscopic evaluation was recommended by the radiologist From the pulmonary standpoint, the patient is a chronic smoker and he has chronic exertional dyspnea and chronic congested cough. No hemoptysis. No pleurisy. No worsening shortness of breath. He can't recall a previous pneumonia back in 2016 involving the left lung base and he was hospitalized back then at [facility]. He was told that this was a severe pneumonia and he was very close to dying from this condition. He ultimately improved. Currently is no nausea or vomiting. Most of it abdominal pain. He is an alcohol drinker. He denies having to pass out from alcohol drinking. He denies having any seizure activity from alcohol drinking. He is currently on DT prophylaxis is also on nicotine patch. Review of Systems Constitutional: Reports fatigue, Reports lethargy, Reports poor appetite, Reports weakness, Reports weight loss Eyes: denies blurred vision, denies bulging eye, denies decreased vision Ears: deny: decreased hearing, ear discharge, earache Ears, nose, mouth and throat: Denies headache, Denies sore throat Cardiovascular: Reports decreased exercise tolerance, Reports dyspnea on exertion Respiratory: Reports cough, Reports dyspnea, Reports wheezing Gastrointestinal: Reports as per HPI Genitourinary: Reports as per HPI Musculoskeletal: Reports frequent falls Musculoskeletal: absent: ankle pain, ankle stiffness, ankle swelling Integumentary: Denies pruritus, Denies rash Neurological: Reports gait dysfunction, Reports weakness Psychiatric: Denies anxiety, Denies depression Endocrine: Reports fatigue Hematologic/Lymphatic: Reports as per HPI Allergic/Immunologic: Reports as per HPI Past Medical History Past Medical History: No Reported History Additional Past Medical History / Comment(s): Severe anemia, previous pneumonia involving the left lower lobe for which she was hospitalized at [facility] in 2016, chronic smoker, alcoholism, malnutrition History of Any Multi-Drug Resistant Organisms: None Reported Past Surgical History: No Surgical Hx Reported Additional Past Surgical History / Comment(s): Pt states he has never had surgery. Past Anesthesia/Blood Transfusion Reactions: Unable to Obtain Past Psychological History: No Psychological Hx Reported Smoking Status: Current every day smoker Past Alcohol Use History: Daily Past Drug Use History: None Reported - Past Family History Mother Additional Family Medical History / Comment(s): from cirrhosis Father Additional Family Medical History / Comment(s): from [place] Medications and Allergies Home Medications Medication Instructions Recorded Confirmed Type Aspirin EC [Ecotrin] 325 mg PO DAILY 01/21/18 01/21/18 History Allergies Allergy/AdvReac Type Severity Reaction Status Date / Time No Known Allergies Allergy Verified 01/21/18 07:37 Physical Exam Vitals: Vital Signs Temp Pulse Pulse Resp BP BP BP 01/23/18 11:59 98.1 F 75 20 136/87 01/23/18 08:36 01/23/18 08:13 01/23/18 08:00 98 F 71 20 117/71 01/23/18 04:00 97.6 F 66 18 118/71 01/23/18 00:00 97.1 F L 72 18 104/73 01/22/18 23:39 97.1 F L 18 104/73 01/22/18 21:48 98.3 F 79 18 131/87 01/22/18 21:18 97.7 F 76 20 130/74 01/22/18 21:08 98.0 F 76 18 142/89 01/22/18 20:00 100.8 F H 72 18 115/68 01/22/18 19:13 98.4 F 76 102/60 01/22/18 16:00 98.4 F 76 102/60 Pulse Ox 01/23/18 11:59 96 01/23/18 08:36 92 L 01/23/18 08:13 90 L 01/23/18 08:00 01/23/18 04:00 100 01/23/18 00:00 95 01/22/18 23:39 95 01/22/18 21:48 95 01/22/18 21:18 97 01/22/18 21:08 96 01/22/18 20:00 97 01/22/18 19:13 97 01/22/18 16:00 Intake and Output 01/23/18 01/23/18 01/23/18 06:59 14:59 22:59 Intake Total 310 1100 Output Total 500 500 Balance -190 600 Intake: IV 1000 Sodium Chloride 0.9% 1, 1000 000 ml @ 125 mls/hr IV . Q8H [facility] Rx#:[id number] Oral 100 Blood Product 310 Rc Pheresis 2 As3 Unit 310 [id number] Output: Urine 500 500 Other: Voiding Method Toilet Toilet Urinal Urinal # Voids 1 Gen. appearance chronically ill appearing, no distress, appears at stated age, cachetic with temporal wasting Derm: no unusual rashes/lesions no unusual ecchymoses, warm, dry, flaking Head: atraumatic, normocephalic, symmetric Eyes: EOMI, no lid lag, anicteric sclera, pupils equal round reactive to light ENT: Nose and ears atraumatic, no thrush, no pharyngeal erythema Neck: No thyromegaly, no cervical lymphadenopathy, trachea midline, supple Mouth: no lip lesion, mucus membranes dry, poor dentition Cardiovascular: S1S2 reg, no murmur, positive posterior tibial pulse bilateral, 2+ edema left LE, no edema R LE, capillary refill less than 2 seconds Lungs: faint wheeze left base, no rhonchi, no rales , no accessory muscle use Abdominal: soft, nontender to palpation, no guarding, no appreciable organomegaly, normal bowel sounds Ext: no gross muscle atrophy, muscle strength 5 out of 5upper extremities grossly and 3/5 in lower extremities, no contractures, Neuro: CN II-XI grossly intact, light touch intact all 4 extremities, finger to nose within normal limits, Psych: Alert, oriented, appropriate affect Results - Laboratory Findings CBC and BMP: 01/23/18 06:09 01/23/18 06:09 PT/INR, D-dimer PT 10.4 sec (9.0-12.0) 01/22/18 13:34 INR 1.1 (<1.2) 01/22/18 13:34 Abnormal lab findings: Abnormal Labs 01/21/18 01/21/18 01/21/18 02:50 02:50 02:50 RBC Hgb Hct MCHC RDW Lymphocytes # Potassium 2.1 L* Carbon Dioxide BUN 8 L Creatinine 0.63 L Plasma Lactic Acid Rohit 3.8 H* Calcium 7.7 L Iron TIBC Ferritin AST 69 H Alkaline Phosphatase 144 H Lactate Dehydrogenase Troponin I 0.147 H* Total Protein 5.1 L Total Protein (PEP) Albumin 2.5 L RBC Folate Urine Protein Urine Ketones Free Inez LC, Quant Crossmatch 01/21/18 01/21/18 01/21/18 04:18 04:18 04:18 RBC 2.01 L Hgb 5.5 L* Hct 18.4 L* MCHC 29.6 L RDW 26.0 H Lymphocytes # 0.7 L Potassium Carbon Dioxide BUN Creatinine Plasma Lactic Acid Rohit Calcium Iron 50 L TIBC 201 L Ferritin 693.5 H AST Alkaline Phosphatase Lactate Dehydrogenase Troponin I Total Protein Total Protein (PEP) Albumin RBC Folate 1,309 H Urine Protein Urine Ketones Free Inez LC, Quant Crossmatch 01/21/18 01/21/18 01/21/18 06:00 10:50 10:58 RBC 2.52 L Hgb 7.2 L D Hct 23.6 L MCHC 30.7 L RDW 23.2 H Lymphocytes # Potassium Carbon Dioxide BUN Creatinine Plasma Lactic Acid Rohit Calcium Iron TIBC Ferritin AST Alkaline Phosphatase Lactate Dehydrogenase Troponin I 0.140 H* Total Protein Total Protein (PEP) Albumin RBC Folate Urine Protein Urine Ketones Free Inez LC, Quant Crossmatch See Detail 01/21/18 01/21/18 01/21/18 15:08 15:08 15:08 RBC Hgb Hct MCHC RDW Lymphocytes # Potassium Carbon Dioxide BUN Creatinine Plasma Lactic Acid Rohit Calcium Iron TIBC Ferritin AST Alkaline Phosphatase Lactate Dehydrogenase 675 H Troponin I 0.106 H* Total Protein Total Protein (PEP) 5.1 L Albumin RBC Folate Urine Protein Urine Ketones Free Inez LC, Quant 2.27 H Crossmatch 01/21/18 01/22/18 01/22/18 21:20 05:45 05:45 RBC 2.16 L Hgb 6.0 L* Hct 19.6 L* MCHC 30.3 L RDW 24.4 H Lymphocytes # Potassium 2.4 L* Carbon Dioxide 31 H BUN 6 L Creatinine 0.52 L Plasma Lactic Acid Rohit Calcium 6.9 L Iron TIBC Ferritin AST Alkaline Phosphatase Lactate Dehydrogenase Troponin I Total Protein Total Protein (PEP) Albumin RBC Folate Urine Protein Trace H Urine Ketones Trace H Free Inez LC, Quant Crossmatch 01/22/18 01/22/18 01/23/18 13:34 13:34 06:09 RBC 2.29 L 3.15 L Hgb 6.5 L* 9.3 L D Hct 22.3 L 28.7 L MCHC 29.3 L RDW 27.2 H 22.0 H Lymphocytes # 0.7 L 0.8 L Potassium Carbon Dioxide 31 H BUN 6 L Creatinine 0.51 L Plasma Lactic Acid Rohit Calcium 6.9 L Iron TIBC Ferritin AST 68 H Alkaline Phosphatase 148 H Lactate Dehydrogenase Troponin I Total Protein 5.1 L Total Protein (PEP) Albumin 2.5 L RBC Folate Urine Protein Urine Ketones Free Inez LC, Quant Crossmatch 01/23/18 06:09 RBC Hgb Hct MCHC RDW Lymphocytes # Potassium 3.4 L Carbon Dioxide 32 H BUN 7 L Creatinine 0.51 L Plasma Lactic Acid Rohit Calcium 6.5 L Iron TIBC Ferritin AST Alkaline Phosphatase Lactate Dehydrogenase Troponin I Total Protein Total Protein (PEP) Albumin RBC Folate Urine Protein Urine Ketones Free Inez LC, Quant Crossmatch - Diagnostic Findings Chest x-ray: image reviewed CT scan - chest: image reviewed Assessment and Plan Plan: Assessment 1 abnormal CAT scan of the chest with evidence of old granulomatous changes and calcified pulmonary granulomas in addition to mediastinal lymph node calcification and small bilateral pleural effusion with some loculation of the left lung base and background pulmonary edema. These findings could be consistent with recurrent aspirations and chronic better pleural effusion. Malignancy is doubtful. The calcified granulomas are benign and likely related to an old granulomatous infection of the lung. 2 symptomatic anemia, posttransfusion and the patient is currently under investigation and hematology is on the case 3 diverticulosis with questionable acute diverticulitis per CAT scan findings, awaiting colonoscopy. 4 generalized weakness and debility and malnourishment as the patient has signs of severe protein calorie malnutrition 5 chronic alcoholism 6 chronic smoker 7 troponin leak Plan Lung malignancy is extremely doubtful. Do not see the need for immediate bronchoscopy. I think the active problem for this patient for now as the symptomatic anemia and the abnormal CAT scan findings which included diverticulosis and questionable diverticulitis. For that reason, this reasonable to consider a GI evaluation and possibly colonoscopy to rule out any gastrointestinal malignancy causing anemia in addition to evaluate for diverticulitis/diverticulosis. Follow pulmonary standpoint, the effusions are likely chronic and this could be related to either chronic aspiration, or recurrent pneumonias in the setting of alcoholism/alcoholic passing out episodes. Aspiration precautions advised. Smoking cessation counseling was done. Medicine regarding rest of the medical issues and hematology to follow- up on the anemia and GI to follow-up on the abnormal CAT scan of the abdomen findings. I do not plan to do any bronchoscopy at this point in time.
--- NOTE | 2018-01-23 17:09 | CONS ---
CONSULTATION DATE OF DICTATION: 01/23/2018 REASON FOR CONSULTATION: Severe symptomatic anemia. HISTORY OF PRESENT ILLNESS: The patient is a 72-year-old white male admitted to the hospital with history of alcohol abuse, chronic smoker. He was admitted to the hospital because of frequent falls. He was brought into the emergency room and had a CT of the brain that showed some chronic atrophic changes. However, he was also noted to have a hemoglobin of 5.5 g/dL. Hence we are consulted because of this issue. The patient denies any abdominal pain. He reports no nausea or vomiting. Denies any significant change in his bowel habits. He has not seen a physician for several years; never had endoscopy or colonoscopy in the past. He was given 2 units of blood transfusion and his last hemoglobin is 6.5 g/dL. As a part of workup, he had a CT of the chest, abdomen and pelvis that was done yesterday which revealed area of thickening of the sigmoid colon with surrounding inflammatory changes and a 1.5 cm hypoattenuated area in the sigmoid colon suspicious for acute sigmoid diverticulitis versus neoplasm, and hence we are consulted for possible colonoscopy. As mentioned above, the patient never had a colonoscopy in the past. At present he denies any associated abdominal pain or change in bowel habits. PAST MEDICAL HISTORY: None. PAST SURGICAL HISTORY: None. MEDICATIONS AT HOME: Aspirin. ALLERGIES: NO KNOWN DRUG ALLERGIES. SOCIAL HISTORY: Chronic smoker. Chronic alcohol use. FAMILY HISTORY: Mother of liver cirrhosis. Father had coronary artery disease. REVIEW OF SYSTEMS: CARDIOPULMONARY: He denies any chest pain or shortness of breath. GENITOURINARY: No dysuria, hematuria. MUSCULOSKELETAL: Unremarkable. SKIN: Unremarkable. ENDOCRINE: Unremarkable. PSYCHIATRY: Unremarkable. NEUROLOGY: Unremarkable. ENT/VISION: Unremarkable. CONSTITUTIONAL: No recent weight loss. No fever, chills, night sweats. PHYSICAL EXAMINATION: He appears comfortable. Blood pressure is 133/86, pulse rate 90, temperature 97.8. HEENT EXAMINATION: Unremarkable. Conjunctivae are pink, sclerae anicteric. Oral cavity with no lesions. NECK: No JVD or lymph node enlargement. Chest was clear to auscultation. HEART: Regular rate and rhythm. ABDOMEN: Soft. Bowel sounds are positive. No organomegaly. EXTREMITIES: No pedal edema. SKIN: No rashes. NEURO: He is alert and oriented x3. No focal deficits. LABS: WBC 4.4. Hemoglobin was 7.2 and it dropped to 6; status post 3 units of blood transfusion. Platelets 280,000. INR is within normal limits. AST 68, ALT is 30, alkaline phosphatase is 148. Serum ferritin is 693, iron 15, TIBC 201, iron saturation 24%. Serum folate is more than 24. Vitamin B12 was 875. IMPRESSION: 1. Severe symptomatic anemia with a hemoglobin of 5.5 and clinically no evidence of active ongoing bleeding. Iron indices are consistent with anemia of chronic disease. CT of the abdomen showed suspicious sigmoid diverticulitis/thickening. Rule out mass. 2. Elevated troponin, for which Cardiology has been consulted. RECOMMENDATIONS: At this time we will plan on proceeding with a colonoscopy during this hospitalization, possibly on Thursday. I discussed with the patient briefly and he is agreeable to it. For now he can continue on a regular diet and will plan for a colonoscopy on Thursday. Thank you for this consultation. YISSEL / LEYLAN: [id number] /
[2018-01-24] MEDS ORDERED: FUROSEMIDE 10 MG/ML 4 ML VIAL IV STA (05:35)
[2018-01-24 05:41] LABS: Glucose,Whole Blood 169 mg/dL (75-99)
[2018-01-24 05:46] LABS: Anisocytosis Moderate; Basophils % (A) 0 %; Eosinophils % (A) 0 %; HCT 32.7 % (39.0-53.0); HGB 10.2 gm/dL (13.0-17.5); Hypochromasia Marked; Lymphocytes # (A) 0.4 k/uL (1.0-4.8); Lymphocytes % (A) 7 %; MCH 29.4 pg (25.0-35.0); MCHC 31.3 g/dL (31.0-37.0); MCV 93.9 fL (80.0-100.0); Macrocytosis Slight; Mean Platelet Volume 8.3; Monocytes # (A) 0.3 k/uL (0-1.0); Monocytes % (A) 5 %; Neutrophils # (A) 5.3 k/uL (1.3-7.7); Neutrophils % (A) 87 %; Platelet Count 293 k/uL (150-450); Poikilocytosis Moderate; RBC 3.48 m/uL (4.30-5.90); RDW 22.4 % (11.5-15.5); WBC 6.1 k/uL (3.8-10.6)
[2018-01-24 06:16] LABS: ABG Base Excess 0.1 mmol/L; ABG HCO3 26 mmol/L (21-25); ABG PCO2 50 mmHg (35-45); ABG PH 7.33 (7.35-7.45); ABG TCO2 28 mmol/L (19-24)
[2018-01-24 06:17] LABS: ABG PO2 57 mmHg (83-108)
--- NOTE | 2018-01-24 06:24 | XR ---
EXAM: XR Chest, 1 View CLINICAL HISTORY: ITS.REASON XR Reason: Resp distress TECHNIQUE: Frontal view of the chest. COMPARISON: 01/21/18 chest radiography FINDINGS: See Impression. IMPRESSION: Interval development of significant atelectasis involving left lower lobe and partial atelectasis of the left upper lobe. Associated approximation of the ribs. Trachea and cardiomediastinal structures are shifted to the left. Right lung remains clear with redemonstration of multiple calcified granulomas.
[2018-01-24 06:31] LABS: Anion Gap 7 mmol/L; Blood Urea Nitrogen 8 mg/dL (9-20); Carbon Dioxide 25 mmol/L (22-30); Chloride 106 mmol/L (98-107); Glucose 149 mg/dL (74-99); Sodium 138 mmol/L (137-145)
[2018-01-24] MEDS ORDERED: CALCIUM CHLORIDE 1,000 MG in SODIUM CHLORIDE 0.9% 100 ML IVPB STA (06:43)
--- NOTE | 2018-01-24 06:48 | P.PN ---
Progress Note - Text Progress Note Date: 01/24/18 Notified by nursing the rapid response team was called for patient with worsening hypoxia, respiratory distress.initially patient sats in the mid 70s, titrated up oxygen to 2 L and up to non-rebreather, still with poor saturations in the 70s. Subsequently placed on BiPAP /8. Limited Exam CV: Regular rhythm no murmurs or gallops Respiratory: Moderate respiratory distress, tachypnic, using accessory muscles, minimal aeration of left lung field. Patient given Lasix 40 mg only 100 mL out 30 minutes post-administration A/P Acute hypoxemic respiratory failure * Continue patient on BiPAP settings changed to /8 currently on FiO2 100% satting 88-90% ABG 7.33/50/57/26 * Chest x-ray confirming interval progression of left lung atelectasis ( possible underlying mucous plugging) * Discussed plan of care with the patient and Dr. Anderson - patient electing to proceed with intubation if needed CODE STATUS changed * Patient will possibly need intubation , pulmonary considering bedside bronchoscopy * Transfer patient to ICU Hypocalcemia * 1 g of calcium chloride given
[2018-01-24 07:01] LABS: Glucose,Whole Blood 169 mg/dL (75-99)
[2018-01-24] MEDS: IPRATROPIUM-ALBUTEROL 3 ML NEB INHALATION SCH ×5 (07:24→23:44)
[2018-01-24] MEDS: SODIUM CHLORIDE 0.9% 1,000 ML IV SCH ×5 (08:30→16:05)
--- NOTE | 2018-01-24 08:30 | P.PN ---
Subjective Progress Note Date: 01/24/18 This is a 72-year-old male patient, a chronic smoker, a chronic alcoholic, came into the hospital as the patient was becoming progressively weak to the point where he was unable to perform activities of daily today life. He came in to the emergency with generalized weakness, falling to the ground and he was unable to recover himself. Nevertheless there was no loss of consciousness or syncope. The patient in the emergency department was seen and evaluated. CAT scan of the brain was done that showed age-related atrophy and some chronic sinusitis. Chest x-ray was consistent with pulmonary granulomas consistent with old infection. The patient was found to profoundly anemic with a hemoglobin of 5.5. Troponin was minimally elevated at 0.1. The patient got transfused with packed RBC. Subsequently the patient got admitted to the medical floor and pulmonary consultation was requested knowing that the patient had a CAT scan of the chest and the findings were abnormal. Note that the patient had a full CAT scan of the chest abdomen and pelvis. CAT scan of the chest showed a limited air bronchogram involving the superior segment of the left lower lobe along with some fluid within the interlobar fissure in addition to small bibasilar pulmonary effusions. There is advanced background emphysema in addition to apical scarring and pulmonary granulomas 2 of them are seen on the right. There is also evidence of segmental compression atelectasis in lung bases bilaterally. The tracheobronchial tree was patent. Mediastinum showed some old mediastinal lymph node calcification suggestive of prior granulomatous disease. No pericardial effusion. Also, the patient showed hepatic steatosis, fatty infiltration of the liver, extensive atherosclerosis of the abdominal aorta and its branches, mild spinal canal stenosis at the level of T10-T11 and evidence of numerous sigmoid diverticulosis and questionable mild component of acute sigmoid diverticulitis and direct colonoscopic evaluation was recommended by the radiologist From the pulmonary standpoint, the patient is a chronic smoker and he has chronic exertional dyspnea and chronic congested cough. No hemoptysis. No pleurisy. No worsening shortness of breath. He can't recall a previous pneumonia back in 2016 involving the left lung base and he was hospitalized back then at [facility]. He was told that this was a severe pneumonia and he was very close to dying from this condition. He ultimately improved. Currently is no nausea or vomiting. Most of it abdominal pain. He is an alcohol drinker. He denies having to pass out from alcohol drinking. He denies having any seizure activity from alcohol drinking. He is currently on DT prophylaxis is also on nicotine patch. on 01/24/2018 the patient got transferred to the intensive care units. The patient early this morning at around 1 AM he became acutely short of breath. He became acutely hypoxic. Initially was on 2 L of oxygen by nasal cannula in progress with Dr. flood went up and he was placed on the percent nonrebreather facemask. Subsequently was found to have labored breathing and rapid response team was called and the patient was placed on a BiPAP at a pressure of 12/5 cm of water with an FiO2 of 100%. Got transferred to the intensive care unit and his current pulse ox is around 91-92%. Chest x-ray shows significant abnormality and interval change compared to yesterday. There is significant amount of volume loss and interval development of atelectasis in the left lower lobe and some infiltration of the perihilar area and the left upper lobe. The patient is currently short of breath and tachypneic and in mild to moderate degree of respiratory distress even being on a BiPAP. As such have made decision to proceed with intubation and proceed with a bronchoscopic evaluation of the left lung. He may need the CAT scan of the chest repeated. He may need also to be placed on broad-spectrum antibiotics and I will restart him on a combination of Zosyn and Levaquin. His white cell count is not elevated. Is afebrile. The Benedict catheter was inserted and the urine output is diminished at this point in time. White cell count is at 6.1. Blood gases done this morning showed a pH of 7.33 with a pCO2 of 50 and pCO2 of 5700% nonrebreather facemask. He received a total of 2 units of packed RBC and hemoglobin today is 10.2. MRI of the spine was noted there is osseous structures and diffuse his energy his marrow signal and within the differential diagnoses there is a possibility of diffuse bony metastases. Objective - Vital Signs Vital signs: Vital Signs Temp 98.4 F 01/24/18 05:00 Pulse 85 01/24/18 07:38 Resp 29 H 01/24/18 05:00 BP 110/74 01/24/18 05:00 Pulse Ox 71 L 01/24/18 05:00 Intake & Output 1001/24/18 01/24/18 18:59 06:59 18:59 Intake Total 2100 Output Total 500 Balance 1600 Weight 57.6 kg Intake: IV 2000 Sodium Chloride 0.9% 1, 2000 000 ml @ 125 mls/hr IV . Q8H [facility] Rx#:[id number] Oral 100 Output: Urine 500 Other: Voiding Method Toilet Toilet Urinal Urinal - Exam Gen. appearance the patient is thin elderly and the patient is morbidly revealed respiratory distress even while wearing the BiPAP mask. He is synchronous with the BiPAP mask for now. Head exam was generally normal. There was no scleral icterus or corneal arcus. Mucous membranes were moist. Neck was supple and without jugular venous distension, thyromegaly, or carotid bruits. Carotids were easily palpable bilaterally. There was no adenopathy. Lungs sounds are markedly diminished bilaterally with scattered expiratory wheezes. Breath sounds are limited on the left compared to the right renal while on the BiPAP therapy. Cardiac exam revealed the PMI to be normally situated and sized. The rhythm was regular and no extrasystoles were noted during several minutes of auscultation. The first and second heart sounds were normal and physiologic splitting of the second heart sound was noted. There were no murmurs, rubs, clicks, or gallops. The patient is having frequent PVCs on the registered nurse cardiac telemetry. Abdominal exam revealed normal bowel sounds. The abdomen was soft, non-tender, and without masses, organomegaly, or appreciable enlargement of the abdominal aorta. Examination of the extremities revealed easily palpable radial, femoral and pedal pulses. There was no cyanosis, clubbing or edema. Examination of the skin revealed no evidence of significant rashes, suspicious appearing nevi or other concerning lesions. Neurologically awake and alert and there is no focal neurological deficits. Psychiatric and the patient is increasingly anxious. - Labs CBC & Chem 7: 01/24/18 05:27 01/24/18 05:27 Labs: Abnormal Lab Results - Last 24 Hours (Table) 01/23/18 01/23/18 01/24/18 Range/Units 06:09 06:09 05:27 RBC 3.15 L 3.48 L (4.30-5.90) m/uL Hgb 9.3 L D 10.2 L (13.0-17.5) gm/dL Hct 28.7 L 32.7 L (39.0-53.0) % RDW 22.0 H 22.4 H (11.5-15.5) % Lymphocytes # 0.8 L 0.4 L (1.0-4.8) k/uL ABG pH (7.35-7.45) ABG pCO2 (35-45) mmHg ABG pO2 (83-108) mmHg ABG HCO3 (21-25) mmol/L ABG Total CO2 (19-24) mmol/L ABG O2 Saturation (94-97) % Potassium 3.4 L (3.5-5.1) mmol/L Carbon Dioxide 32 H (22-30) mmol/L BUN 7 L (9-20) mg/dL Creatinine 0.51 L (0.66-1.25) mg/dL Glucose (74-99) mg/dL POC Glucose (mg/dL) (75-99) mg/dL Calcium 6.5 L (8.4-10.2) mg/dL 01/24/18 01/24/18 01/24/18 Range/Units 05:27 05:27 06:14 RBC (4.30-5.90) m/uL Hgb (13.0-17.5) gm/dL Hct (39.0-53.0) % RDW (11.5-15.5) % Lymphocytes # (1.0-4.8) k/uL ABG pH 7.33 L (7.35-7.45) ABG pCO2 50 H (35-45) mmHg ABG pO2 57 L* (83-108) mmHg ABG HCO3 26 H (21-25) mmol/L ABG Total CO2 28 H (19-24) mmol/L ABG O2 Saturation 87.0 L (94-97) % Potassium (3.5-5.1) mmol/L Carbon Dioxide (22-30) mmol/L BUN 8 L (9-20) mg/dL Creatinine 0.54 L (0.66-1.25) mg/dL Glucose 149 H (74-99) mg/dL POC Glucose (mg/dL) 169 H (75-99) mg/dL Calcium 6.0 L* (8.4-10.2) mg/dL 01/24/18 Range/Units 07:00 RBC (4.30-5.90) m/uL Hgb (13.0-17.5) gm/dL Hct (39.0-53.0) % RDW (11.5-15.5) % Lymphocytes # (1.0-4.8) k/uL ABG pH (7.35-7.45) ABG pCO2 (35-45) mmHg ABG pO2 (83-108) mmHg ABG HCO3 (21-25) mmol/L ABG Total CO2 (19-24) mmol/L ABG O2 Saturation (94-97) % Potassium (3.5-5.1) mmol/L Carbon Dioxide (22-30) mmol/L BUN (9-20) mg/dL Creatinine (0.66-1.25) mg/dL Glucose (74-99) mg/dL POC Glucose (mg/dL) 169 H (75-99) mg/dL Calcium (8.4-10.2) mg/dL Assessment and Plan Plan: Assessment 1 acute hypoxic respiratory failure, currently on BiPAP for respiratory support. Despite BiPAP therapy the patient is exchanging low tidal volumes, he is still tachypneic and there is a concern of the patient was subsequently decompensated. Chest x-ray shows volume loss and significant opacification of the left lung which raises the suspicion for a mucous plug/questionable lesion within the distal left mainstem bronchus causing volume loss and subsequent atelectasis. Pneumonia is also considered. 2 symptomatic anemia, posttransfusion and the patient is currently under investigation and hematology is on the case. Hemoglobin is improved post packed RBC transfusion. 3 diverticulosis with questionable acute diverticulitis per CAT scan findings, awaiting colonoscopy. 4 generalized weakness and debility and malnourishment as the patient has signs of severe protein calorie malnutrition 5 chronic alcoholism 6 chronic smoker 7 troponin leak 8 frequent PVCs 9 diffuse heterogeneous bone marrow signal on the MRI of the spine. Possibility of diffuse bony metastasis is being considered. Plan Continue BiPAP therapy. The patient would likely need intubation mechanical ventilation. Post intubation would proceed with a flexible bronchoscopy to inspect the left lung and obtain BAL at the same time do any biopsies if needed should there be any endobronchial tumors or lesions. We will need broad spectrum antibiotics. Start the patient on a combination of Zosyn and Levaquin. We'll give him a liter of bolus. We'll put him on a maintenance normal saline to 75 mL an hour. Condition is critical. We'll continue to follow make further recommendations based on her progress. Case was discussed with the hospitalist group. There is a critically care evaluation was done and 35 minutes excluding time to do any procedures. Time with Patient: Greater than 30
[2018-01-24 08:34] LABS: ALT 51 U/L (21-72); AST 160 U/L (17-59); Albumin 2.5 g/dL (3.5-5.0); Alkaline Phosphatase 166 U/L (38-126); Total Protein 5.1 g/dL (6.3-8.2)
[2018-01-24] MEDS: LEVOFLOXACIN 750MG-D5W PMX 750 MG in DEXTROSE/WATER 1 150ML.BAG IVPB SCH (08:44)
[2018-01-24] MEDS: guaiFENesin 600 MG TABLET.ER PO SCH ×2 (08:49→21:28)
[2018-01-24] MEDS: PANTOPRAZOLE 40 MG TABLET PO SCH (08:49)
--- NOTE | 2018-01-24 09:18 | P.PN ---
Subjective Progress Note Date: 01/24/18 Principal diagnosis: follow up for Anemia, acute hypoxic respiratory failure patient seen and examined, overnight course was complicated by sudden onset trouble breathing and acute hypoxic respiratory failure patient was found to have poor air entry over the left side of his lungs he was placed on BiPAP and transferred to the ICU currently he continues to have hard time oxygenating despite using BiPAP plans are for endotracheal intubation and flexible bronchoscopy. No fevers overnight no leukocytosis, no hemoptysis no chest pain Objective - Vital Signs Vital signs: Vital Signs Temp 98.4 F 01/24/18 05:00 Pulse 85 01/24/18 07:38 Resp 29 H 01/24/18 05:00 BP 110/74 01/24/18 05:00 Pulse Ox 71 L 01/24/18 05:00 Intake & Output 01/23/18 01/24/18 01/24/18 18:59 06:59 18:59 Intake Total 2100 450 Output Total 500 Balance 1600 450 Weight 57.6 kg Intake: IV 2000 Sodium Chloride 0.9% 1, 2000 000 ml @ 125 mls/hr IV . Q8H [facility] Rx#:[id number] Intake, IV Titration 450 Amount Sodium Chloride 0.9% 1, 450 000 ml @ 125 mls/hr IV . Q8H [facility] Rx#:[id number] Oral 100 Output: Urine 500 Other: Voiding Method Toilet Diaper Urinal Incontinent # Voids 2 # Bowel Movements 1 - Exam General: Patient is anxious currently on BiPAP with difficulty breathing. Elderly, cachectic. Cardiovascular:normal S1S2 regular rate and rhythm , no murmur Lungs: Diminished breath sounds over the left side, evidence of use of accessory muscles of respiration Abdominal: soft, lax, nontender, no guarding, no organomegaly appreciated, BS positive Extremities: no gross muscle atrophy, no edema, no tenderness to palpation of the calf muscles, cap refill immediate Neuro: no focal neuro deficits Psych: Alert, oriented, anxious - Labs CBC & Chem 7: 01/24/18 05:27 01/24/18 05:27 Labs: Abnormal Lab Results - Last 24 Hours (Table) 01/23/18 01/23/18 01/24/18 Range/Units 06:09 06:09 05:27 RBC 3.15 L 3.48 L (4.30-5.90) m/uL Hgb 9.3 L D 10.2 L (13.0-17.5) gm/dL Hct 28.7 L 32.7 L (39.0-53.0) % RDW 22.0 H 22.4 H (11.5-15.5) % Lymphocytes # 0.8 L 0.4 L (1.0-4.8) k/uL ABG pH (7.35-7.45) ABG pCO2 (35-45) mmHg ABG pO2 (83-108) mmHg ABG HCO3 (21-25) mmol/L ABG Total CO2 (19-24) mmol/L ABG O2 Saturation (94-97) % Potassium 3.4 L (3.5-5.1) mmol/L Carbon Dioxide 32 H (22-30) mmol/L BUN 7 L (9-20) mg/dL Creatinine 0.51 L (0.66-1.25) mg/dL Glucose (74-99) mg/dL POC Glucose (mg/dL) (75-99) mg/dL Calcium 6.5 L (8.4-10.2) mg/dL AST (17-59) U/L Alkaline Phosphatase (38-126) U/L Total Protein (6.3-8.2) g/dL Albumin (3.5-5.0) g/dL 01/24/18 01/24/18 01/24/18 Range/Units 05:27 05:27 06:14 RBC (4.30-5.90) m/uL Hgb (13.0-17.5) gm/dL Hct (39.0-53.0) % RDW (11.5-15.5) % Lymphocytes # (1.0-4.8) k/uL ABG pH 7.33 L (7.35-7.45) ABG pCO2 50 H (35-45) mmHg ABG pO2 57 L* (83-108) mmHg ABG HCO3 26 H (21-25) mmol/L ABG Total CO2 28 H (19-24) mmol/L ABG O2 Saturation 87.0 L (94-97) % Potassium (3.5-5.1) mmol/L Carbon Dioxide (22-30) mmol/L BUN 8 L (9-20) mg/dL Creatinine 0.54 L (0.66-1.25) mg/dL Glucose 149 H (74-99) mg/dL POC Glucose (mg/dL) 169 H (75-99) mg/dL Calcium 6.0 L* (8.4-10.2) mg/dL AST 160 H (17-59) U/L Alkaline Phosphatase 166 H (38-126) U/L Total Protein 5.1 L (6.3-8.2) g/dL Albumin 2.5 L (3.5-5.0) g/dL 01/24/18 Range/Units 07:00 RBC (4.30-5.90) m/uL Hgb (13.0-17.5) gm/dL Hct (39.0-53.0) % RDW (11.5-15.5) % Lymphocytes # (1.0-4.8) k/uL ABG pH (7.35-7.45) ABG pCO2 (35-45) mmHg ABG pO2 (83-108) mmHg ABG HCO3 (21-25) mmol/L ABG Total CO2 (19-24) mmol/L ABG O2 Saturation (94-97) % Potassium (3.5-5.1) mmol/L Carbon Dioxide (22-30) mmol/L BUN (9-20) mg/dL Creatinine (0.66-1.25) mg/dL Glucose (74-99) mg/dL POC Glucose (mg/dL) 169 H (75-99) mg/dL Calcium (8.4-10.2) mg/dL AST (17-59) U/L Alkaline Phosphatase (38-126) U/L Total Protein (6.3-8.2) g/dL Albumin (3.5-5.0) g/dL Assessment and Plan Assessment: Patient is a 72-year-old male with history of tobacco and alcohol abuse but no medical history who presented to the ER via EMS after falling to the ground and being unable to recover. In the ER he underwent an extensive evaluation. They did a CT brain which showed some chronic sinusitis site with age-appropriate atrophy. Chest x-ray showed old granulomatous disease. Vital signs were within normal limits. Initial laboratory analysis shows severe anemia with a hemoglobin of 5.5 and elevated troponin at 0.147.. He was ordered 1 unit of packed red blood cells. He was also found to have a significantly low potassium level and potassium was replaced. Arrangements are made for admission. Oncology was consulted. Initial evaluation showed a hypoproliferative anemia consistent with anemia of chronic disease and an elevated ferritin level. Patient has not been having bowel movements and a fecal occult has not been obtained yet. He was seen by neurology. The morning after admission his potassium was again low and was aggressively replaced. His hemoglobin had dropped from 7.2 posttransfusion to 6 and 1 additional unit of packed red blood cells was ordered. Further discussion with pulmonary service and reviewing CAT scan of the chest revealed no concerning areas of any nodules or masses that warrants biopsy, atelectasis is thought to be due to probably chronic repeated aspirations with the patient history of alcohol abuse. Plans from GI service to perform colonoscopy on 01/25 Overnight course was complicated by sudden onset of acute respiratory distress and hypoxemia, patient was found to have poor air entry over the left side chest x-ray showed diminished volume over the left side patient was moved to the ICU for possible intubation and flexible bronchoscopy. Patient was started on broad-spectrum antibiotics. Hemoglobin has been stable so far patient required only 2 units of blood transfusion, no GI bleeding evidenced at this point. CIWA scores low patient continues to be on withdrawal precautions Plan: Acute hypoxic respiratory failure suspected to be due to mucous plug versus obstruction Chest x-ray with evidence of volume loss over the left side Patient continues to be hypoxic despite BiPAP use Plans for intubation and subsequent flexible bronchoscopy Broad-spectrum antibiotics started to cover postobstructive pneumonia possibility, however patient had no fever no leukocytosis so far Continue with supportive care in the ICU Symptomatic anemia, hypoproliferative, currently stable - labs show element of chronic disease - CT chest/abd/pelvis showed an area in the sigmoid concerning for malignancy Hepatic steatosis on abdominal CT, with an area concerning for solitary hepatic lesion, GI following Hemoglobin stable today continues to rise, patient received 2 units of blood so far since admission -hematology oncology following Severe Hypokalemia, and hypocalcemia secondary to poor nutritional status replace as needed Generalized Lower extremity weakness -Fall precautions -PT/OT evaluation - neuro workup , believes its part of generalized debility without evidence of focal neurological deficits MRI of the lumbar spine suggested bony changes concerning for diffuse bony metastasis and also picked up on bowel thickening concerning for possible malignancy Elevated troponin,due to demand ischemia - echo normal, no further testing at this time. Tobacco abuse - cessation - nicotine replacement ETOH abuse - CIWA protocol - thiamine and folic acid supplementation Withdrawal precautions Severe protein calorie malnutrition -added MVI -dietitian recs GI planning on endoscopy on Thursday 01/25 DVT prophylaxis: Heparin Anticipated discharge place: home with home health
[2018-01-24] MEDS ORDERED: CISATRACURIUM 2 MG/ML 5 ML VIAL IV ONE (09:34)
[2018-01-24] MEDS: PROPOFOL 1,000 MG in EMPTY BAG 1 BAG IV SCH ×3 (09:45→21:12)
--- NOTE | 2018-01-24 10:19 | PCN ---
PROCEDURE NOTE ENDOTRACHEAL INTUBATION: INDICATION: Respiratory compromise. PREOP DIAGNOSIS: Acute hypoxic respiratory failure. POSTOP DIAGNOSIS: Acute hypoxic respiratory failure. A time-out was completed verifying correct patient, procedure, site, positioning, and implant(s) or special equipment if applicable. The patient was positioned appropriately. I intubated the patient with a #4 MAC blade and I used a #8 orotracheal tube was placed under direct laryngoscopy. The tube was anchored at 22 cm at the teeth. Correct placement was confirmed by presence of bilateral breath sounds without air sounds in the abdomen on auscultation. An end- tidal CO2 monitor was also used to confirm tracheal placement of the ET tube. A chest x-ray was ordered to assess for pneumothorax and verify endotracheal tube placement. The patient tolerated the procedure well and there were no complications. MMODL / IJN: [id number] /
--- NOTE | 2018-01-24 10:25 | XR ---
EXAMINATION TYPE: XR chest 1V confirm line plcmt DATE OF EXAM: 01/24/2018 HISTORY: line placement. REFERENCE: Previous study dated 01/24/2018 The patient has been intubated. ET tube is in satisfactory position with its tip approximately 6 cm f rom the jaxon. An NG tube is been passed. Its tip crosses the hemidiaphragm but is not visualized. There continues to be left-sided airspace disease. There is also developing right-sided airspace dise ase. There are calcified granulomas on the right. The heart is not enlarged. I suspect a left effusio n.. FINDINGS: 1. Satisfactory ET tube position. 2. Continuing left-sided airspace disease with a concomitant effusion. 3. Developing right lower lobe airspace disease. 4. Evidence of old granulomatous disease. IMPRESSION:
--- NOTE | 2018-01-24 10:25 | PCN ---
PROCEDURE NOTE PROCEDURE PERFORMED: Bronchoscopy. DESCRIPTION OF PROCEDURE: Bronchoscopy was done once the patient was intubated and mechanically ventilated. The patient was adequately oxygenated and ventilated through an orotracheal tube. At this point, the patient was also sedated with Diprivan. I inserted the flexible bronchoscope through the orotracheal tube and advanced into the lower trachea. The tip of the endotracheal tube was seen around 2 cm above the jaxon. Jaxon was sharp in the midline and bilateral mainstem bronchi was seen. The left mainstem bronchus was plugged with loose respiratory secretions that caused complete occlusion of the left mainstem bronchus. The secretions were easily suctioned out. The patency of the left upper lobe lingular segment and the left lower lobe segments were all assured and the patient did not have any endobronchial lesions or tumors. The examination of the right side include right mainstem, right upper lobe, right middle lobe and right lower lobe and all of these airways were patent and within normal limits. Loose respiratory secretions were suctioned out essentially on the left side. Especially in the left lower lobe. No foreign bodies. No tumors. No aspiration. Bronchoscope was wedged in the lingula and bronchioalveolar lavage was done. A total of 60 mL of fluid was infused and 25 mL was suctioned back. Bronchoscope was removed and the fluid samples were sent to cultures. MMODL / IJN: [id number] /
[2018-01-24] MEDS: PIPERACILLIN-TAZOBACTAM 3.375 GM in DEXTROSE/WATER 1 50ML.BAG IVPB SCH ×3 (10:30→23:49)
--- NOTE | 2018-01-24 10:31 | PCN ---
PROCEDURE NOTE TRIPLE LUMEN CATHETER PLACEMENT: Indication Hemodynamic monitoring/Intravenous access. A time-out was completed verifying correct patient, procedure, site, positioning, and implant(s) or special equipment if applicable. The patient was placed in a dependent position appropriate for triple lumen catheter placement based on the vein to be cannulated. The patient's left shoulder was prepped and draped in sterile fashion. 1% Lidocaine was used to anesthetize the surrounding skin area. A triple lumen 9F Cordis catheter was introduced into the subclavian vein using Seldinger technique. The catheter was threaded smoothly over the guide wire and appropriate blood return was obtained. Each lumen of the catheter was evacuated of air and flushed with sterile saline. The catheter was then sutured in place to the skin and a sterile dressing applied. Perfusion to the extremity distal to the point of catheter insertion was checked and found to be adequate. No bedside complications or bleeding. MMODL / IJN: [id number] /
--- NOTE | 2018-01-24 10:31 | PCN ---
PROCEDURE NOTE ARTERIAL LINE PLACEMENT: Indications: Hemodynamic monitoring. A time-out was completed verifying correct patient, procedure, site, positioning, and implant(s) or special equipment if applicable. Shalom's test was performed to ensure adequate perfusion. The patient's right groin was prepped and draped in sterile fashion. 1% Lidocaine was used to anesthetize the area. An 18G Arrow arterial line was introduced into the femoral artery. The catheter was threaded over the guide wire and the needle was removed with appropriate pulsatile blood return. Blood loss was minimal. The catheter was then sutured in place to the skin and a sterile dressing applied. Perfusion to the extremity distal to the point of catheter insertion was checked and found to be adequate. The patient tolerated the procedure well and there were no complications. No bedside complications or bleeding. MMODL / IJN: [id number] /
--- NOTE | 2018-01-24 10:49 | PN ---
PROGRESS NOTE DATE OF SERVICE: January 24, 2018 Patient is a 72-year-old pleasant white male who was admitted to the hospital with severe symptomatic anemia, hemoglobin of 5.5 g/dL requiring 2 units of blood transfusion. Also having frequent falls, not feeling well and had not seen a physician for several years. The patient was seen in consultation by me yesterday. As a part of workup of anemia, he had a CT of the abdomen chest and pelvis done that showed some thickening of the sigmoid colon. The plan was to proceed with a colonoscopy during this hospitalization. However, this morning the patient became extremely hypoxic, difficulty breathing, severe shortness of breath, and as well as hypertension and he was transferred to the intensive care unit. Presently, he is intubated and on mechanical ventilation. He just underwent bronchoscopy by Dr. Anderson for left lung lobe collapse and was diagnosed with severe pneumonia, presently on broad-spectrum antibiotics. Remains intubated and sedated. PHYSICAL EXAMINATION: Vital signs show blood pressure of 84/63, pulse rate 110 per minute. Presently on the vent, sedated. Physical examination was not performed as he is presently undergoing bronch by Dr. Anderson. IMPRESSION: 1. Acute respiratory failure secondary to severe pneumonia, presently intubated, mechanically ventilated, undergoing bronchoscopy. 2. Severe symptomatic anemia with a hemoglobin of 5.5, status post 2 units of blood transfusion. As mentioned above, CT of the abdomen chest and pelvis done 2 days ago showed thickening of the sigmoid colon and possibility of mucosal lesion could not be excluded. 3. Electrolyte abnormalities. 4. Alcohol abuse. RECOMMENDATIONS: Since the patient is presently in the intensive care unit, mechanically ventilated and sedated, we will not plan on any endoscopy intervention at the present time. We will follow him clinically and consider EGD colonoscopy during this hospitalization once his overall condition improves. Thank you for this consultation. MMODL / IJN: [id number] /
[2018-01-24] MEDS ORDERED: IPRATROPIUM-ALBUTEROL 3 ML NEB INHALATION PRN (10:55)
[2018-01-24 11:02] LABS: ABG Base Excess -3.2 mmol/L; ABG HCO3 23 mmol/L (21-25); ABG PCO2 44 mmHg (35-45); ABG PH 7.32 (7.35-7.45); ABG PO2 241 mmHg (83-108); ABG TCO2 24 mmol/L (19-24)
[2018-01-24] MEDS: NOREPINEPHRINE 16 MG in SODIUM CHLORIDE 0.9% 250 ML IV SCH (12:11)
[2018-01-24] MEDS: NICOTINE 21MG/24HR PATCH TRANSDERM SCH (12:12)
[2018-01-24] MEDS: PANTOPRAZOLE 40 MG/10 ML VIAL IV SCH (12:15)
[2018-01-24] MEDS: FOLIC ACID 1 MG TAB PO SCH (12:15)
[2018-01-24] MEDS: THIAMINE 100 MG TAB PO SCH ×2 (12:16→16:07)
[2018-01-24] MEDS: MULTIVITAMINS, THERA 1 EACH TAB PO SCH (12:16)
[2018-01-24 12:24] LABS: Glucose,Whole Blood 111 mg/dL (75-99)
[2018-01-24] MEDS: CHLORHEXIDINE GLUCONATE 15 ML CUP MUCOUS MEM SCH (21:28)
[2018-01-25 00:16] LABS: Glucose,Whole Blood 141 mg/dL (75-99)
[2018-01-25] MEDS: IPRATROPIUM-ALBUTEROL 3 ML NEB INHALATION SCH ×6 (03:40→23:03)
[2018-01-25] MEDS: PROPOFOL 1,000 MG in EMPTY BAG 1 BAG IV SCH ×3 (04:12→20:33)
[2018-01-25 04:43] LABS: Anisocytosis Moderate; Basophils % (A) 0 %; Eosinophils % (A) 0 %; HCT 31.9 % (39.0-53.0); HGB 9.6 gm/dL (13.0-17.5); Hypochromasia Marked; Lymphocytes # (A) 0.6 k/uL (1.0-4.8); Lymphocytes % (A) 8 %; MCHC 30.1 g/dL (31.0-37.0); MCV 93.1 fL (80.0-100.0); Macrocytosis Slight; Mean Platelet Volume 8.1; Microcytosis Slight; Monocytes # (A) 0.4 k/uL (0-1.0); Monocytes % (A) 5 %; Neutrophils # (A) 6.3 k/uL (1.3-7.7); Neutrophils % (A) 85 %; Platelet Count 281 k/uL (150-450); Poikilocytosis Moderate; RBC 3.43 m/uL (4.30-5.90); RDW 22.8 % (11.5-15.5); WBC 7.4 k/uL (3.8-10.6)
[2018-01-25 05:16] LABS: Anion Gap 4 mmol/L; Blood Urea Nitrogen 7 mg/dL (9-20); Carbon Dioxide 27 mmol/L (22-30); Chloride 108 mmol/L (98-107); Glucose 134 mg/dL (74-99); Magnesium 1.6 mg/dL (1.6-2.3); Phosphorus 2.9 mg/dL (2.5-4.5); Potassium 3.1 mmol/L (3.5-5.1); Sodium 139 mmol/L (137-145)
[2018-01-25 05:49] LABS: ABG Base Excess 3.2 mmol/L; ABG HCO3 27 mmol/L (21-25); ABG Oxygen Saturation 96.7 % (94-97); ABG PCO2 37 mmHg (35-45); ABG PH 7.47 (7.35-7.45); ABG PO2 78 mmHg (83-108); ABG TCO2 28 mmol/L (19-24)
[2018-01-25 05:53] LABS: Calcium 6.2 mg/dL (8.4-10.2)
[2018-01-25] MEDS ORDERED: Potassium Replacement Protocol 1 EACH MISC MISCELLANE PRN ×2 (05:54→18:30)
[2018-01-25] MEDS ORDERED: Magnesium Replacement Protocol 1 EACH MISC MISCELLANE PRN (05:55)
[2018-01-25] MEDS: MAGNESIUM SULFATE-D5W PMX 1 GM in DEXTROSE/WATER 1 100ML.BAG IVPB SCH ×2 (06:06→09:43)
[2018-01-25] MEDS: SODIUM CHLORIDE 0.9% 1,000 ML IV SCH ×2 (06:07→20:33)
[2018-01-25 06:27] LABS: Glucose,Whole Blood 129 mg/dL (75-99)
[2018-01-25] MEDS: POTASSIUM CHLORIDE 20 MEQ in WATER FOR INJECTION 1 100ML.BAG IVPB SCH ×3 (06:37→11:50)
--- NOTE | 2018-01-25 08:25 | XR ---
EXAMINATION TYPE: XR chest 1V portable DATE OF EXAM: 01/25/2018 COMPARISON: 01/24/2018 INDICATION: Tube placement TECHNIQUE: Single frontal view of the chest is obtained. FINDINGS: The heart size is normal. The pulmonary vasculature is normal. There are multiple rounded densities to the right mid and lower lung field granuloma. Left lower lob e infiltrate is present. Small left pleural effusion is likely present. Minimal right pleural effusio n may be present. Endotracheal tube tip is above the jaxon. Nasogastric tube transverses the thorax. Left central veno us catheter tip is in the superior vena cava region. IMPRESSION: 1. Small left and minimal right pleural effusions. 2. Mild left lower lobe infiltrate, improving from comparison. 3. Multiple lines and catheters discussed above.
--- NOTE | 2018-01-25 09:00 | P.PN ---
Subjective Progress Note Date: 01/25/18 Principal diagnosis: weakness Patient is a 72-year-old male with history of tobacco and alcohol abuse but no medical history who presented to the ER via EMS after falling to the ground and being unable to recover. In the ER he underwent an extensive evaluation. They did a CT brain which showed some chronic sinusitis site with age-appropriate atrophy. Chest x-ray showed old granulomatous disease. Vital signs were within normal limits. Initial laboratory analysis shows severe anemia with a hemoglobin of 5.5 and elevated troponin at 0.147. He was ordered 1 unit of packed red blood cells. He was also found to have a significantly low potassium level and potassium was replaced. Arrangements are made for admission. Oncology was consulted. Initial evaluation showed a hypoproliferative anemia consistent with anemia of chronic disease and an elevated ferritin level. Patient has not been having bowel movements and a fecal occult has not been obtained yet. He was seen by neurology MRI lumbar spine demonstrated heterogenous marrow signal pattern consistent with diffuse ravinder mets, it also showed coloni c dowel wall thickening. Neurology felt weakness was due to metabolic derangements. He was seen by pulmonary who did not feel there is any nodules meeting acute bronchial with biopsy. He was seen by GI after CT abdomen and pelvis showed diverticulitis and unusual segment of sigmoid colon. Plans had been for EGD and colonoscopy. On the morning of 01/24 he developed acute respiratory distress. He subsequently was transferred to the ICU intubated, brought, had a central and arterial line placed. Bronchoscopy did not show any abnormal mucosal lesions but did show mucus plugging area and his colonoscopy and EGD were held off on until the patient was more clinically stable. Patient seen and examined at bedside. Currently sedated on vent. Case discussed with nursing. No new events overnight. Objective - Vital Signs Vital signs: Vital Signs Temp 98.8 F 01/25/18 04:00 Pulse 77 01/25/18 07:40 Resp 24 01/25/18 07:00 BP 149/61 01/24/18 12:00 Pulse Ox 98 01/25/18 07:00 Intake & Output 01/24/18 01/25/18 01/25/18 18:59 06:59 18:59 Intake Total 2873.184 1110.374 217.25 Output Total 1140 795 60 Balance 1733.184 315.374 157.25 Weight 63.2 kg Intake: IV 2850 950 75 Levofloxacin 750Mg-D5w 150 Pmx 750 mg In Dextrose/ Water 1 150ml.bag @ 100 mls/hr IVPB Q24H [facility] Rx#: [id number] Piperacillin-Tazobactam 3 100 50 .375 gm In Dextrose/Water 1 50ml.bag @ 12.5 mls/hr IVPB Q8HR [facility] Rx#: [id number] Sodium Chloride 0.9% 1, 600 900 75 000 ml @ 75 mls/hr IV . [id number] [facility] Rx#:[id number] Sodium Chloride 0.9% 1, 2000 000 ml @ 999 mls/hr IV . Q1H1M [facility] Rx#:[id number] Intake, IV Titration 23.184 160.374 142.25 Amount Norepinephrine 16 mg In 142.25 Sodium Chloride 0.9% 250 ml @ Titrate IV .Q0M [facility] Rx#:[id number] Propofol 1,000 mg In 23.184 160.374 Empty Bag 1 bag @ Titrate IV .Q0M [facility] Rx#: [id number] Output: Urine 1140 795 60 Other: Voiding Method Indwelling Catheter Indwelling Catheter ABP, PAP, CO, CI - Last Documented Arterial Blood Pressure 106/67 - Exam General: Ill appearing, mild distress, appears older than stated age, cachectic Derm: warm, dry Head: atraumatic, normocephalic, symmetric Eyes: Pupils equal round reactive to light, no lid lesion anicteric sclera Neck: Supple, trachea midline, no cervical lymphadenopathy Cardiovascular: S1S2 reg, no murmur, positive posterior tibial pulse bilateral, Lungs: Coarse breath sounds bilaterally, no accessory muscle use, on vent Abdominal: soft, nontender to palpation, no guarding, no appreciable organomegaly Ext: no gross muscle atrophy, 2+ edema bilateral upper and lower extremities, no contractures Neuro: Withdrawal to pain in bilateral upper extremities, no contractures noted , + cough Psych: Sedated on vent - Labs CBC & Chem 7: 01/25/18 04:27 01/25/18 04:27 Labs: Abnormal Lab Results - Last 24 Hours (Table) 01/24/18 01/24/18 01/25/18 Range/Units 10:37 12:09 00:14 RBC (4.30-5.90) m/uL Hgb (13.0-17.5) gm/dL Hct (39.0-53.0) % MCHC (31.0-37.0) g/dL RDW (11.5-15.5) % Lymphocytes # (1.0-4.8) k/uL ABG pH 7.32 L (7.35-7.45) ABG pO2 241 H (83-108) mmHg ABG HCO3 (21-25) mmol/L ABG Total CO2 (19-24) mmol/L ABG O2 Saturation 100.0 H (94-97) % Potassium (3.5-5.1) mmol/L Chloride (98-107) mmol/L BUN (9-20) mg/dL Creatinine (0.66-1.25) mg/dL Glucose (74-99) mg/dL POC Glucose (mg/dL) 111 H 141 H (75-99) mg/dL Calcium (8.4-10.2) mg/dL Ionized Calcium Nisha (4.5-5.3) mg/dL 01/25/18 01/25/18 01/25/18 Range/Units 04:27 04:27 05:47 RBC 3.43 L (4.30-5.90) m/uL Hgb 9.6 L (13.0-17.5) gm/dL Hct 31.9 L (39.0-53.0) % MCHC 30.1 L (31.0-37.0) g/dL RDW 22.8 H (11.5-15.5) % Lymphocytes # 0.6 L (1.0-4.8) k/uL ABG pH 7.47 H (7.35-7.45) ABG pO2 78 L (83-108) mmHg ABG HCO3 27 H (21-25) mmol/L ABG Total CO2 28 H (19-24) mmol/L ABG O2 Saturation (94-97) % Potassium 3.1 L (3.5-5.1) mmol/L Chloride 108 H (98-107) mmol/L BUN 7 L (9-20) mg/dL Creatinine 0.39 L (0.66-1.25) mg/dL Glucose 134 H (74-99) mg/dL POC Glucose (mg/dL) (75-99) mg/dL Calcium 6.2 L* (8.4-10.2) mg/dL Ionized Calcium Nisha (4.5-5.3) mg/dL 01/25/18 01/25/18 Range/Units 06:20 06:25 RBC (4.30-5.90) m/uL Hgb (13.0-17.5) gm/dL Hct (39.0-53.0) % MCHC (31.0-37.0) g/dL RDW (11.5-15.5) % Lymphocytes # (1.0-4.8) k/uL ABG pH (7.35-7.45) ABG pO2 (83-108) mmHg ABG HCO3 (21-25) mmol/L ABG Total CO2 (19-24) mmol/L ABG O2 Saturation (94-97) % Potassium (3.5-5.1) mmol/L Chloride (98-107) mmol/L BUN (9-20) mg/dL Creatinine (0.66-1.25) mg/dL Glucose (74-99) mg/dL POC Glucose (mg/dL) 129 H (75-99) mg/dL Calcium (8.4-10.2) mg/dL Ionized Calcium Nisha 4.0 L (4.5-5.3) mg/dL Microbiology - Last 24 Hours (Table) 01/24/18 09:35 Fungal Culture - Preliminary Bronchoalviolar Lavage - Right 01/24/18 09:35 Gram Stain - Preliminary Bronchoalviolar Lavage - Right Bronchial Washings Culture - Preliminary Assessment and Plan Assessment: Acute hypoxic respiratory failure secondary to mucous plugging -Vent management per pulmonary -Pulmonary hygiene with bronchodilators, Mucinex -Await cultures from bronch Sigmoid diverticulitis with possible submucosal abscess versus mass, diffuse bony metastasis on MRI lumbar spine -Plan is for EGD and colonoscopy once patient is more stable -Oncology recommendations -Likely will need/CT on discharge is able to clinically improve Hypotension, no signs of sepsis - levophed wean as able - follow BP Symptomatic anemia, hypoproliferative - labs show element of chronic disease -THS,B12, and folate normal - LDH and alk phos elevated -Follow CBC in a.m. -hematology oncology recs appreciated Severe Hypokalemia Potassium replacement protocol Generalized Lower extremity weakness -Likely secondary to suspected malignancy -Fall precautions -PT/OT evaluation -Neurology recommendations appreciated Elevated troponin,due to demand ischemia - echo normal, no furhter testing at this time. Tobacco abuse - cessation - nicotine replacement ETOH abuse - [facility] protocol - thiamine and folic acid supplementation Severe protein calorie malnutrition -added MVI -dietitian recs Tobacco abuse -Nicotine replacement -Cessation recommended CODE STATUS:DNR DVT prophylaxis: Heparin Discussed with: Patient, nursing Anticipated discharge date: 4-[address]: home with home health vs SNF A total of 40 minutes was spent on the care of this complex patient more than 50 % of the time was spent in counseling and care coordination.
[2018-01-25] MEDS: NICOTINE 21MG/24HR PATCH TRANSDERM SCH (09:38)
[2018-01-25] MEDS: CHLORHEXIDINE GLUCONATE 15 ML CUP MUCOUS MEM SCH ×2 (09:38→20:33)
[2018-01-25] MEDS: guaiFENesin 600 MG TABLET.ER PO SCH ×2 (09:38→20:32)
[2018-01-25] MEDS: PANTOPRAZOLE 40 MG/10 ML VIAL IV SCH (09:38)
[2018-01-25] MEDS: PIPERACILLIN-TAZOBACTAM 3.375 GM in DEXTROSE/WATER 1 50ML.BAG IVPB SCH ×3 (09:42→23:55)
[2018-01-25 10:43] LABS: Albumin 2.69 g/dL (3.80-4.90)
[2018-01-25] MEDS: LEVOFLOXACIN 750MG-D5W PMX 750 MG in DEXTROSE/WATER 1 150ML.BAG IVPB SCH (10:48)
[2018-01-25 11:05] LABS: Hemoglobin A1C 5.1 % (4.0-6.0)
--- NOTE | 2018-01-25 11:09 | P.PN ---
Subjective Progress Note Date: 01/25/18 Principal diagnosis: Acute hypoxic respiratory failure secondary to left lower lobe pneumonia, left parapneumonic pleural effusion, profound anemia. And septic shock. This is a 72-year-old male patient, a chronic smoker, a chronic alcoholic, came into the hospital as the patient was becoming progressively weak to the point where he was unable to perform activities of daily today life. He came in to the emergency with generalized weakness, falling to the ground and he was unable to recover himself. Nevertheless there was no loss of consciousness or syncope. The patient in the emergency department was seen and evaluated. CAT scan of the brain was done that showed age-related atrophy and some chronic sinusitis. Chest x-ray was consistent with pulmonary granulomas consistent with old infection. The patient was found to profoundly anemic with a hemoglobin of 5.5. Troponin was minimally elevated at 0.1. The patient got transfused with packed RBC. Subsequently the patient got admitted to the medical floor and pulmonary consultation was requested knowing that the patient had a CAT scan of the chest and the findings were abnormal. Note that the patient had a full CAT scan of the chest abdomen and pelvis. CAT scan of the chest showed a limited air bronchogram involving the superior segment of the left lower lobe along with some fluid within the interlobar fissure in addition to small bibasilar pulmonary effusions. There is advanced background emphysema in addition to apical scarring and pulmonary granulomas 2 of them are seen on the right. There is also evidence of segmental compression atelectasis in lung bases bilaterally. The tracheobronchial tree was patent. Mediastinum showed some old mediastinal lymph node calcification suggestive of prior granulomatous disease. No pericardial effusion. Also, the patient showed hepatic steatosis, fatty infiltration of the liver, extensive atherosclerosis of the abdominal aorta and its branches, mild spinal canal stenosis at the level of T10-T11 and evidence of numerous sigmoid diverticulosis and questionable mild component of acute sigmoid diverticulitis and direct colonoscopic evaluation was recommended by the radiologist From the pulmonary standpoint, the patient is a chronic smoker and he has chronic exertional dyspnea and chronic congested cough. No hemoptysis. No pleurisy. No worsening shortness of breath. He can't recall a previous pneumonia back in 2016 involving the left lung base and he was hospitalized back then at [facility]. He was told that this was a severe pneumonia and he was very close to dying from this condition. He ultimately improved. Currently is no nausea or vomiting. Most of it abdominal pain. He is an alcohol drinker. He denies having to pass out from alcohol drinking. He denies having any seizure activity from alcohol drinking. He is currently on DT prophylaxis is also on nicotine patch. on 01/24/2018 the patient got transferred to the intensive care units. The patient early this morning at around 1 AM he became acutely short of breath. He became acutely hypoxic. Initially was on 2 L of oxygen by nasal cannula in progress with Dr. remigio morrison up and he was placed on the percent nonrebreather facemask. Subsequently was found to have labored breathing and rapid response team was called and the patient was placed on a BiPAP at a pressure of 12/5 cm of water with an FiO2 of 100%. Got transferred to the intensive care unit and his current pulse ox is around 91-92%. Chest x-ray shows significant abnormality and interval change compared to yesterday. There is significant amount of volume loss and interval development of atelectasis in the left lower lobe and some infiltration of the perihilar area and the left upper lobe. The patient is currently short of breath and tachypneic and in mild to moderate degree of respiratory distress even being on a BiPAP. As such have made decision to proceed with intubation and proceed with a bronchoscopic evaluation of the left lung. He may need the CAT scan of the chest repeated. He may need also to be placed on broad-spectrum antibiotics and I will restart him on a combination of Zosyn and Levaquin. His white cell count is not elevated. Is afebrile. The Benedict catheter was inserted and the urine output is diminished at this point in time. White cell count is at 6.1. Blood gases done this morning showed a pH of 7.33 with a pCO2 of 50 and pCO2 of 5700% nonrebreather facemask. He received a total of 2 units of packed RBC and hemoglobin today is 10.2. MRI of the spine was noted there is osseous structures and diffuse his energy his marrow signal and within the differential diagnoses there is a possibility of diffuse bony metastases. Patient was reevaluated today on 01/25/2018, in the ICU, on mechanical ventilation, ventilator settings are tidal volume of 400, FiO2 of 50%, assist control rate of 22, PEEP is 5. ABG is marginal with a pO2 of 78 pCO2 of 37 pH of 7.47. Patient remains on propofol is also on norepinephrine, 7 mcg/m, and propofol is 35 mcg/kg/m. Patient is arousable, follows simple instructions like wiggling toes, closing eyes, in spite of of low-dose propofol on board. Chest x-ray was reviewed, and it showed mostly a left lower lobe pneumonia left pleural effusion, and a small tiny right sided pleural effusion with atelectasis. His basic metabolic profile is normal except for low potassium of 3.1, being corrected, his CBC is relatively unremarkable. WBC count is 7.4 hemoglobin is 9.6. His hemoglobin is holding, patient received a total of 3 units of packed RBCs since admission. Patient is being followed by hematology/ oncology for what seems to be a picture of myeloproliferative disorder. Objective - Vital Signs Vital signs: Vital Signs Temp 98.2 F 01/25/18 08:00 Pulse 78 01/25/18 10:00 Resp 22 01/25/18 10:00 BP 149/61 01/24/18 12:00 Pulse Ox 100 01/25/18 10:00 Intake & Output 01/24/18 01/25/18 01/25/18 18:59 06:59 18:59 Intake Total 2873.184 1110.374 642.25 Output Total 1140 795 195 Balance 1733.184 315.374 447.25 Weight 63.2 kg 63.2 kg Intake: IV 2850 950 125 Levofloxacin 750Mg-D5w 150 Pmx 750 mg In Dextrose/ Water 1 150ml.bag @ 100 mls/hr IVPB Q24H [facility] Rx#: [id number] Piperacillin-Tazobactam 3 100 50 50 .375 gm In Dextrose/Water 1 50ml.bag @ 12.5 mls/hr IVPB Q8HR [facility] Rx#: [id number] Sodium Chloride 0.9% 1, 600 900 75 000 ml @ 75 mls/hr IV . [id number] [facility] Rx#:[id number] Sodium Chloride 0.9% 1, 2000 000 ml @ 999 mls/hr IV . Q1H1M [facility] Rx#:[id number] Intake, IV Titration 23.184 160.374 517.25 Amount Magnesium Sulfate-D5w Pmx 50 1 gm In Dextrose/Water 1 100ml.bag @ 100 mls/hr IVPB Q1H [facility] Rx#: [id number] Norepinephrine 16 mg In 142.25 Sodium Chloride 0.9% 250 ml @ Titrate IV .Q0M [facility] Rx#:[id number] Piperacillin-Tazobactam 3 50 .375 gm In Dextrose/Water 1 50ml.bag @ 12.5 mls/hr IVPB Q8HR [facility] Rx#: [id number] Potassium Chloride 20 meq 50 In Water For Injection 1 100ml.bag @ 50 mls/hr IVPB Q2H [facility] Rx#: [id number] Propofol 1,000 mg In 23.184 160.374 Empty Bag 1 bag @ Titrate IV .Q0M [facility] Rx#: [id number] Sodium Chloride 0.9% 1, 225 000 ml @ 75 mls/hr IV . [id number] [facility] Rx#:[id number] Output: Urine 1140 795 195 Other: Voiding Method Indwelling Catheter Indwelling Catheter Indwelling Catheter ABP, PAP, CO, CI - Last Documented Arterial Blood Pressure 125/74 - Exam Physical Exam: Revealed a 72-year-old white male, cachectic looking, very thin, on mechanical ventilation. Head: Atraumatic, normocephalic. HEENT:[Neck is supple.] [No neck masses.] [No thyromegaly.] [No JVD.] PERRLA, EOMI, moist mucous membranes, no carotid bruits. No cervical adenopathy. Chest: [Diminished breath sound bilaterally, no crackles or rhonchi or wheezes. Cardiac Exam: [Normal S1 and S2, no S3 gallop, no murmur.] Abdomen: [Soft, nontender, no megaly, no rebound, no guarding, normal bowel sounds.] Extremities: [No clubbing, no edema, no cyanosis.] Venodyne boots noted in both lower extremities. Neurological Exam: [No focal neurologic deficit.] Lymphatics: No lymphadenopathy. Psychiatric: Cannot be assessed, patient is on mechanical ventilation. But seems to have intact mental status by following simple instructions. - Labs CBC & Chem 7: 01/25/18 04:27 01/25/18 04:27 Labs: Abnormal Lab Results - Last 24 Hours (Table) 01/21/18 01/24/18 01/24/18 Range/Units 15:08 10:37 12:09 RBC (4.30-5.90) m/uL Hgb (13.0-17.5) gm/dL Hct (39.0-53.0) % MCHC (31.0-37.0) g/dL RDW (11.5-15.5) % Lymphocytes # (1.0-4.8) k/uL ABG pH 7.32 L (7.35-7.45) ABG pO2 241 H (83-108) mmHg ABG HCO3 (21-25) mmol/L ABG Total CO2 (19-24) mmol/L ABG O2 Saturation 100.0 H (94-97) % Potassium (3.5-5.1) mmol/L Chloride (98-107) mmol/L BUN (9-20) mg/dL Creatinine (0.66-1.25) mg/dL Glucose (74-99) mg/dL POC Glucose (mg/dL) 111 H (75-99) mg/dL Calcium (8.4-10.2) mg/dL Ionized Calcium Nisha (4.5-5.3) mg/dL Albumin (PEP) 2.69 L (3.80-4.90) g/dL 01/25/18 01/25/18 01/25/18 Range/Units 00:14 04:27 04:27 RBC 3.43 L (4.30-5.90) m/uL Hgb 9.6 L (13.0-17.5) gm/dL Hct 31.9 L (39.0-53.0) % MCHC 30.1 L (31.0-37.0) g/dL RDW 22.8 H (11.5-15.5) % Lymphocytes # 0.6 L (1.0-4.8) k/uL ABG pH (7.35-7.45) ABG pO2 (83-108) mmHg ABG HCO3 (21-25) mmol/L ABG Total CO2 (19-24) mmol/L ABG O2 Saturation (94-97) % Potassium 3.1 L (3.5-5.1) mmol/L Chloride 108 H (98-107) mmol/L BUN 7 L (9-20) mg/dL Creatinine 0.39 L (0.66-1.25) mg/dL Glucose 134 H (74-99) mg/dL POC Glucose (mg/dL) 141 H (75-99) mg/dL Calcium 6.2 L* (8.4-10.2) mg/dL Ionized Calcium Nisha (4.5-5.3) mg/dL Albumin (PEP) (3.80-4.90) g/dL 01/25/18 01/25/18 01/25/18 Range/Units 05:47 06:20 06:25 RBC (4.30-5.90) m/uL Hgb (13.0-17.5) gm/dL Hct (39.0-53.0) % MCHC (31.0-37.0) g/dL RDW (11.5-15.5) % Lymphocytes # (1.0-4.8) k/uL ABG pH 7.47 H (7.35-7.45) ABG pO2 78 L (83-108) mmHg ABG HCO3 27 H (21-25) mmol/L ABG Total CO2 28 H (19-24) mmol/L ABG O2 Saturation (94-97) % Potassium (3.5-5.1) mmol/L Chloride (98-107) mmol/L BUN (9-20) mg/dL Creatinine (0.66-1.25) mg/dL Glucose (74-99) mg/dL POC Glucose (mg/dL) 129 H (75-99) mg/dL Calcium (8.4-10.2) mg/dL Ionized Calcium Nisha 4.0 L (4.5-5.3) mg/dL Albumin (PEP) (3.80-4.90) g/dL Microbiology - Last 24 Hours (Table) 01/24/18 09:35 Fungal Culture - Preliminary Bronchoalviolar Lavage - Right 01/24/18 09:35 Gram Stain - Preliminary Bronchoalviolar Lavage - Right Bronchial Washings Culture - Preliminary Assessment and Plan Assessment: Impression: 1 acute hypoxic respiratory failure requiring intubation and mechanical ventilation, most likely secondary to pneumonia involving the left lower lobe and parapneumonic effusion, I strongly suspect sepsis and septic shock patient is requiring norepinephrine presently at 7 mcg/m. 2 symptomatic anemia possible myeloproliferative disorder, being addressed by hematology/oncology on the case, received a total of 3 units of packed RBCs so far. 3 chronic alcoholism 4 diffuse heterogeneous bone marrow signal, being addressed by hematology on the case. 5 troponin leak 6 frequent premature ventricular contractions 7 generalized weakness and debility, severe protein calorie malnutrition is suspected. 8 history of diverticulosis, being addressed by GI on the case. Recommendation: Continue mechanical ventilation, continue antibiotics, continue blood transfusion as needed, patient is now on Levaquin and Zosyn, continue norepinephrine for low blood pressure, GI and DVT prophylaxis, nutritional support, patient remains critically ill, we will gradually wean sedation, assess mental status further, patient will unlikely get extubated today, remains critically ill. And has multiple complex medical problems as noted above. Critical care time is 35 minutes. We'll continue to follow. Time with Patient: Greater than 30
[2018-01-25] MEDS: MULTIVITAMINS, THERA 1 EACH TAB PO SCH (12:12)
[2018-01-25] MEDS: THIAMINE 100 MG TAB PO SCH ×2 (12:12→17:22)
[2018-01-25] MEDS: FOLIC ACID 1 MG TAB PO SCH (12:12)
[2018-01-25 12:32] LABS: Glucose,Whole Blood 108 mg/dL (75-99)
[2018-01-25] MEDS: NOREPINEPHRINE 16 MG in SODIUM CHLORIDE 0.9% 250 ML IV SCH (16:36)
[2018-01-25 17:10] LABS: Glucose,Whole Blood 114 mg/dL (75-99)
[2018-01-25] MEDS ORDERED: POTASSIUM BICARBONATE/CIT AC 20 MEQ TABLET.EFF NG-TUBE SCH (19:00)
[2018-01-26 00:44] LABS: Glucose,Whole Blood 112 mg/dL (75-99)
[2018-01-26] MEDS: PROPOFOL 1,000 MG in EMPTY BAG 1 BAG IV SCH ×3 (01:18→22:44)
[2018-01-26] MEDS: IPRATROPIUM-ALBUTEROL 3 ML NEB INHALATION SCH ×6 (02:54→23:23)
[2018-01-26 04:30] LABS: Anisocytosis Moderate; Basophils % (A) 0 %; Eosinophils # (A) 0.1 k/uL (0-0.7); Eosinophils % (A) 1 %; HCT 28.4 % (39.0-53.0); HGB 8.9 gm/dL (13.0-17.5); Hypochromasia Marked; Lymphocytes # (A) 0.7 k/uL (1.0-4.8); Lymphocytes % (A) 11 %; MCH 29.3 pg (25.0-35.0); MCHC 31.4 g/dL (31.0-37.0); MCV 93.4 fL (80.0-100.0); Macrocytosis Slight; Mean Platelet Volume 10.2; Microcytosis Slight; Monocytes # (A) 0.3 k/uL (0-1.0); Monocytes % (A) 4 %; Neutrophils # (A) 5.3 k/uL (1.3-7.7); Neutrophils % (A) 82 %; Platelet Count 250 k/uL (150-450); Poikilocytosis Moderate; RBC 3.04 m/uL (4.30-5.90); WBC 6.5 k/uL (3.8-10.6)
[2018-01-26 04:39] LABS: Anion Gap 2 mmol/L; Blood Urea Nitrogen 6 mg/dL (9-20); Carbon Dioxide 26 mmol/L (22-30); Chloride 110 mmol/L (98-107); Glucose 112 mg/dL (74-99); Magnesium 2.1 mg/dL (1.6-2.3); Phosphorus 1.8 mg/dL (2.5-4.5); Potassium 3.6 mmol/L (3.5-5.1); Sodium 138 mmol/L (137-145)
[2018-01-26 04:49] LABS: Calcium 6.2 mg/dL (8.4-10.2)
[2018-01-26] MEDS: POTASSIUM PHOSPHATE 10 MMOL in SODIUM CHLORIDE 0.9% 100 ML IV SCH ×2 (05:27→08:32)
[2018-01-26] MEDS ORDERED: POTASSIUM BICARBONATE/CIT AC 20 MEQ TABLET.EFF NG-TUBE SCH (06:00)
[2018-01-26 07:05] LABS: ABG Base Excess 3.4 mmol/L; ABG HCO3 27 mmol/L (21-25); ABG PCO2 34 mmHg (35-45); ABG PO2 183 mmHg (83-108); ABG TCO2 28 mmol/L (19-24)
--- NOTE | 2018-01-26 08:18 | XR ---
EXAMINATION TYPE: XR chest 1V portable DATE OF EXAM: 01/26/2018 COMPARISON: 01/25/2018 HISTORY: Tube placement TECHNIQUE: Single frontal view of the chest is obtained. FINDINGS: Bilateral consolidation and pleural effusion with evidence of granuloma. ET, NG tube, and central line stable. No obvious pneumothorax. Heart size stable. IMPRESSION: 1. Diffuse pleural-parenchymal changes are stable differential includes postoperative venous congesti on versus pneumonia or atelectasis with pleural effusions.
[2018-01-26] MEDS: LEVOFLOXACIN 750MG-D5W PMX 750 MG in DEXTROSE/WATER 1 150ML.BAG IVPB SCH (08:34)
[2018-01-26] MEDS: NICOTINE 21MG/24HR PATCH TRANSDERM SCH (08:35)
[2018-01-26] MEDS: guaiFENesin 600 MG TABLET.ER PO SCH ×2 (08:35→20:36)
[2018-01-26] MEDS: PANTOPRAZOLE 40 MG/10 ML VIAL IV SCH (08:35)
[2018-01-26] MEDS: CHLORHEXIDINE GLUCONATE 15 ML CUP MUCOUS MEM SCH ×2 (08:35→20:36)
--- NOTE | 2018-01-26 10:32 | P.PN ---
Subjective Progress Note Date: 01/26/18 (Delayed charting patient seen at 0800) Principal diagnosis: weakness Patient is a 72-year-old male with history of tobacco and alcohol abuse but no medical history who presented to the ER via EMS after falling to the ground and being unable to recover. In the ER he underwent an extensive evaluation. They did a CT brain which showed some chronic sinusitis site with age-appropriate atrophy. Chest x-ray showed old granulomatous disease. Vital signs were within normal limits. Initial laboratory analysis shows severe anemia with a hemoglobin of 5.5 and elevated troponin at 0.147. He was ordered 1 unit of packed red blood cells. He was also found to have a significantly low potassium level and potassium was replaced. Arrangements are made for admission. Oncology was consulted. Initial evaluation showed a hypoproliferative anemia consistent with anemia of chronic disease and an elevated ferritin level. Patient has not been having bowel movements and a fecal occult has not been obtained yet. He was seen by neurology MRI lumbar spine demonstrated heterogenous marrow signal pattern consistent with diffuse ravinder mets, it also showed coloni c dowel wall thickening. Neurology felt weakness was due to metabolic derangements. He was seen by pulmonary who did not feel there is any nodules meeting acute bronchial with biopsy. He was seen by GI after CT abdomen and pelvis showed diverticulitis and unusual segment of sigmoid colon. Plans had been for EGD and colonoscopy. On the morning of 01/24 he developed acute respiratory distress. He subsequently was transferred to the ICU intubated, brought, had a central and arterial line placed. Bronchoscopy did not show any abnormal mucosal lesions but did show mucus plugging area and his colonoscopy and EGD were held off on until the patient was more clinically stable. Still requiring small amounts of levophed on the morning of 01/26. Patient seen and examined at bedside. Currently sedated on vent. Did well on sedation holiday yesterday and seemed to be following commands. No acute events overnight. Objective - Vital Signs Vital signs: Vital Signs Temp 98.2 F 01/26/18 04:00 Pulse 73 01/26/18 08:29 Resp 19 01/26/18 07:00 BP 149/61 01/24/18 12:00 Pulse Ox 100 01/26/18 07:00 Intake & Output 01/25/18 01/26/18 01/26/18 18:59 06:59 18:59 Intake Total 7439.034 7866.119 203.419 Output Total 1080 565 45 Balance 727.905 977.119 158.419 Weight 63.2 kg 63.2 kg Intake: IV 925 1000 75 Levofloxacin 750Mg-D5w 100 Pmx 750 mg In Dextrose/ Water 1 150ml.bag @ 100 mls/hr IVPB Q24H [facility] Rx#: [id number] Piperacillin-Tazobactam 3 150 100 .375 gm In Dextrose/Water 1 50ml.bag @ 12.5 mls/hr IVPB Q8HR [facility] Rx#: [id number] Sodium Chloride 0.9% 1, 675 900 75 000 ml @ 75 mls/hr IV . [id number] [facility] Rx#:[id number] Intake, IV Titration 812.905 192.119 98.419 Amount Magnesium Sulfate-D5w Pmx 50 1 gm In Dextrose/Water 1 100ml.bag @ 100 mls/hr IVPB Q1H [facility] Rx#: [id number] Norepinephrine 16 mg In 170.416 29.086 Sodium Chloride 0.9% 250 ml @ Titrate IV .Q0M [facility] Rx#:[id number] Piperacillin-Tazobactam 3 50 .375 gm In Dextrose/Water 1 50ml.bag @ 12.5 mls/hr IVPB Q8HR [facility] Rx#: [id number] Potassium Chloride 20 meq 150 In Water For Injection 1 100ml.bag @ 50 mls/hr IVPB Q2H [facility] Rx#: [id number] Propofol 1,000 mg In 92.489 163.033 98.419 Empty Bag 1 bag @ Titrate IV .Q0M [facility] Rx#: [id number] Sodium Chloride 0.9% 1, 300 000 ml @ 75 mls/hr IV . [id number] [facility] Rx#:[id number] Oral 100 Tube Feeding 40 220 30 Other 30 30 Output: Gastric Drainage 300 Urine 780 565 45 Other: Voiding Method Indwelling Catheter Indwelling Catheter # Voids 0 ABP, PAP, CO, CI - Last Documented Arterial Blood Pressure 106/66 - Exam General: Ill appearing, mild distress, appears older than stated age, cachectic Derm: warm, dry Head: atraumatic, normocephalic, symmetric Eyes: Pupils equal round reactive to light, no lid lesion anicteric sclera Neck: Supple, trachea midline, no cervical lymphadenopathy Cardiovascular: S1S2 reg, no murmur, positive posterior tibial pulse bilateral, Lungs: CTA bilaterally, no accessory muscle use, on vent Abdominal: soft, nontender to palpation, no guarding, no appreciable organomegaly Ext: no gross muscle atrophy, 2+ edema bilateral upper and lower extremities, no contractures Psych: Sedated on vent - Labs CBC & Chem 7: 01/26/18 04:22 01/26/18 04:22 Labs: Abnormal Lab Results - Last 24 Hours (Table) 01/21/18 01/25/18 01/25/18 Range/Units 15:08 12:30 17:08 RBC (4.30-5.90) m/uL Hgb (13.0-17.5) gm/dL Hct (39.0-53.0) % RDW (11.5-15.5) % Lymphocytes # (1.0-4.8) k/uL ABG pH (7.35-7.45) ABG pCO2 (35-45) mmHg ABG pO2 (83-108) mmHg ABG HCO3 (21-25) mmol/L ABG Total CO2 (19-24) mmol/L ABG O2 Saturation (94-97) % Chloride (98-107) mmol/L BUN (9-20) mg/dL Creatinine (0.66-1.25) mg/dL Glucose (74-99) mg/dL POC Glucose (mg/dL) 108 H 114 H (75-99) mg/dL Calcium (8.4-10.2) mg/dL Ionized Calcium Nisha (4.5-5.3) mg/dL Phosphorus (2.5-4.5) mg/dL Albumin (PEP) 2.69 L (3.80-4.90) g/dL 01/26/18 01/26/18 01/26/18 Range/Units 00:30 04:22 04:22 RBC 3.04 L (4.30-5.90) m/uL Hgb 8.9 L (13.0-17.5) gm/dL Hct 28.4 L (39.0-53.0) % RDW 23.0 H (11.5-15.5) % Lymphocytes # 0.7 L (1.0-4.8) k/uL ABG pH (7.35-7.45) ABG pCO2 (35-45) mmHg ABG pO2 (83-108) mmHg ABG HCO3 (21-25) mmol/L ABG Total CO2 (19-24) mmol/L ABG O2 Saturation (94-97) % Chloride 110 H (98-107) mmol/L BUN 6 L (9-20) mg/dL Creatinine 0.38 L (0.66-1.25) mg/dL Glucose 112 H (74-99) mg/dL POC Glucose (mg/dL) 112 H (75-99) mg/dL Calcium 6.2 L* (8.4-10.2) mg/dL Ionized Calcium Nisha (4.5-5.3) mg/dL Phosphorus 1.8 L (2.5-4.5) mg/dL Albumin (PEP) (3.80-4.90) g/dL 01/26/18 01/26/18 Range/Units 04:59 07:03 RBC (4.30-5.90) m/uL Hgb (13.0-17.5) gm/dL Hct (39.0-53.0) % RDW (11.5-15.5) % Lymphocytes # (1.0-4.8) k/uL ABG pH 7.50 H (7.35-7.45) ABG pCO2 34 L (35-45) mmHg ABG pO2 183 H (83-108) mmHg ABG HCO3 27 H (21-25) mmol/L ABG Total CO2 28 H (19-24) mmol/L ABG O2 Saturation 100.0 H (94-97) % Chloride (98-107) mmol/L BUN (9-20) mg/dL Creatinine (0.66-1.25) mg/dL Glucose (74-99) mg/dL POC Glucose (mg/dL) (75-99) mg/dL Calcium (8.4-10.2) mg/dL Ionized Calcium Nisha 4.3 L (4.5-5.3) mg/dL Phosphorus (2.5-4.5) mg/dL Albumin (PEP) (3.80-4.90) g/dL Microbiology - Last 24 Hours (Table) 01/24/18 09:35 Fungal Culture - Preliminary Bronchoalviolar Lavage - Right 01/24/18 09:35 Gram Stain - Preliminary Bronchoalviolar Lavage - Right Bronchial Washings Culture - Preliminary Assessment and Plan Assessment: Acute hypoxic respiratory failure secondary to mucous plugging -Vent management per pulmonary -Pulmonary hygiene with bronchodilators, Mucinex -Cultures from broch show normal respiratory dimas Left lower lobe PNA with septic shock - wean levo as able - continue with zosyn - pulmonary hygeine D # 3/ Sigmoid diverticulitis with possible submucosal abscess versus mass -Plan is for EGD and colonoscopy once patient is more stable -Oncology and GI recommendations appreciated - Discussed with oncology at length. They feel that heterogeneous uptake in the lumbar spine is not consistent with metastatic disease but is more reflective of the patient's acute condition including pneumonia, sepsis, severe anemia, and alcoholism Symptomatic anemia, hypoproliferative - labs show element of chronic disease -THS,B12, and folate normal - LDH and alk phos elevated -Follow CBC in a.m. -hematology oncology recs appreciated: work up unrevealing at this time, if anemia persists will need outpatient Bone marrow biopsy Generalized Lower extremity weakness -Likely secondary to metabolic condition -Fall precautions -PT/OT evaluation -Neurology recommendations appreciated Elevated troponin,due to demand ischemia - echo normal, no further testing at this time. Tobacco abuse - cessation - nicotine replacement ETOH abuse - CIWA protocol to utilize once extubated - thiamine and folic acid supplementation Severe protein calorie malnutrition - MVI -dietitian recs Severe Hypokalemia, resolved DVT prophylaxis: Heparin Discussed with: Patient, nursing Anticipated discharge date: 4-[address]: home with home health vs SNF A total of 35 minutes was spent on the care of this complex patient more than 50 % of the time was spent in counseling and care coordination.
[2018-01-26] MEDS ORDERED: FUROSEMIDE 10 MG/ML 4 ML VIAL ONE (10:50)
[2018-01-26] MEDS: PIPERACILLIN-TAZOBACTAM 3.375 GM in DEXTROSE/WATER 1 50ML.BAG IVPB SCH ×3 (11:07→23:06)
[2018-01-26] MEDS: SODIUM CHLORIDE 0.9% 1,000 ML IV SCH ×2 (11:07→20:36)
[2018-01-26 11:49] LABS: Glucose,Whole Blood 90 mg/dL (75-99)
--- NOTE | 2018-01-26 12:04 | P.PN ---
Subjective Progress Note Date: 01/26/18 Principal diagnosis: Anemia 72-year-old gentleman admitted with left lower lobe pneumonia with septic shock , severe symptomatic anemia hemoglobin of 5.5 requiring [address] abdomen and pelvis reported thickening of the sigmoid colon underlying lesion could not be excluded. Status post bronchoscopy. Presently intubated sedated low-dose pressors. Nursing reports no evidence of hematemesis hematochezia or melena. Hemoglobin 8.9. Objective - Vital Signs Vital signs: Vital Signs Temp 98.2 F 01/26/18 04:00 Pulse 77 01/26/18 11:30 Resp 87 H 01/26/18 11:16 BP 149/61 01/24/18 12:00 Pulse Ox 100 01/26/18 07:00 Intake & Output 01/25/18 01/26/18 01/26/18 18:59 06:59 18:59 Intake Total 6892.367 1343.119 203.419 Output Total 1080 565 45 Balance 727.905 977.119 158.419 Weight 63.2 kg 63.2 kg Intake: IV 925 1000 75 Levofloxacin 750Mg-D5w 100 Pmx 750 mg In Dextrose/ Water 1 150ml.bag @ 100 mls/hr IVPB Q24H [facility] Rx#: [id number] Piperacillin-Tazobactam 3 150 100 .375 gm In Dextrose/Water 1 50ml.bag @ 12.5 mls/hr IVPB Q8HR [facility] Rx#: [id number] Sodium Chloride 0.9% 1, 675 900 75 000 ml @ 75 mls/hr IV . [id number] [facility] Rx#:[id number] Intake, IV Titration 812.905 192.119 98.419 Amount Magnesium Sulfate-D5w Pmx 50 1 gm In Dextrose/Water 1 100ml.bag @ 100 mls/hr IVPB Q1H [facility] Rx#: [id number] Norepinephrine 16 mg In 170.416 29.086 Sodium Chloride 0.9% 250 ml @ Titrate IV .Q0M [facility] Rx#:[id number] Piperacillin-Tazobactam 3 50 .375 gm In Dextrose/Water 1 50ml.bag @ 12.5 mls/hr IVPB Q8HR [facility] Rx#: [id number] Potassium Chloride 20 meq 150 In Water For Injection 1 100ml.bag @ 50 mls/hr IVPB Q2H [facility] Rx#: [id number] Propofol 1,000 mg In 92.489 163.033 98.419 Empty Bag 1 bag @ Titrate IV .Q0M [facility] Rx#: [id number] Sodium Chloride 0.9% 1, 300 000 ml @ 75 mls/hr IV . [id number] [facility] Rx#:[id number] Oral 100 Tube Feeding 40 220 30 Other 30 30 Output: Gastric Drainage 300 Urine 780 565 45 Other: Voiding Method Indwelling Catheter Indwelling Catheter # Voids 0 ABP, PAP, CO, CI - Last Documented Arterial Blood Pressure 106/66 - Exam General appearance: The patient is intubated sedated. HET: Head is normocephalic and atraumatic. Pupils are equal and reactive. Oropharynx is clear without lesions. Neck: Supple without lymphadenopathy. Trachea midline. Heart: S1 S2. Regular rate and rhythm. Lungs: No crackles or wheezes are heard. Abdomen: Soft, nontender, nondistended with bowel sounds. No peritoneal signs. No palpable organomegaly or masses. Extremities: +2 bilateral edema to upper and lower extremities. Neurological: Sedated - Labs CBC & Chem 7: 01/26/18 04:22 01/26/18 04:22 Labs: Abnormal Lab Results - Last 24 Hours (Table) 01/25/18 01/25/18 01/26/18 Range/Units 12:30 17:08 00:30 RBC (4.30-5.90) m/uL Hgb (13.0-17.5) gm/dL Hct (39.0-53.0) % RDW (11.5-15.5) % Lymphocytes # (1.0-4.8) k/uL ABG pH (7.35-7.45) ABG pCO2 (35-45) mmHg ABG pO2 (83-108) mmHg ABG HCO3 (21-25) mmol/L ABG Total CO2 (19-24) mmol/L ABG O2 Saturation (94-97) % Chloride (98-107) mmol/L BUN (9-20) mg/dL Creatinine (0.66-1.25) mg/dL Glucose (74-99) mg/dL POC Glucose (mg/dL) 108 H 114 H 112 H (75-99) mg/dL Calcium (8.4-10.2) mg/dL Ionized Calcium Nisha (4.5-5.3) mg/dL Phosphorus (2.5-4.5) mg/dL 01/26/18 01/26/18 01/26/18 Range/Units 04:22 04:22 04:59 RBC 3.04 L (4.30-5.90) m/uL Hgb 8.9 L (13.0-17.5) gm/dL Hct 28.4 L (39.0-53.0) % RDW 23.0 H (11.5-15.5) % Lymphocytes # 0.7 L (1.0-4.8) k/uL ABG pH (7.35-7.45) ABG pCO2 (35-45) mmHg ABG pO2 (83-108) mmHg ABG HCO3 (21-25) mmol/L ABG Total CO2 (19-24) mmol/L ABG O2 Saturation (94-97) % Chloride 110 H (98-107) mmol/L BUN 6 L (9-20) mg/dL Creatinine 0.38 L (0.66-1.25) mg/dL Glucose 112 H (74-99) mg/dL POC Glucose (mg/dL) (75-99) mg/dL Calcium 6.2 L* (8.4-10.2) mg/dL Ionized Calcium Nisha 4.3 L (4.5-5.3) mg/dL Phosphorus 1.8 L (2.5-4.5) mg/dL 01/26/18 Range/Units 07:03 RBC (4.30-5.90) m/uL Hgb (13.0-17.5) gm/dL Hct (39.0-53.0) % RDW (11.5-15.5) % Lymphocytes # (1.0-4.8) k/uL ABG pH 7.50 H (7.35-7.45) ABG pCO2 34 L (35-45) mmHg ABG pO2 183 H (83-108) mmHg ABG HCO3 27 H (21-25) mmol/L ABG Total CO2 28 H (19-24) mmol/L ABG O2 Saturation 100.0 H (94-97) % Chloride (98-107) mmol/L BUN (9-20) mg/dL Creatinine (0.66-1.25) mg/dL Glucose (74-99) mg/dL POC Glucose (mg/dL) (75-99) mg/dL Calcium (8.4-10.2) mg/dL Ionized Calcium Nisha (4.5-5.3) mg/dL Phosphorus (2.5-4.5) mg/dL Microbiology - Last 24 Hours (Table) 01/24/18 09:35 Gram Stain - Final Bronchoalviolar Lavage - Right Bronchial Washings Culture - Final 01/24/18 09:35 Fungal Culture - Preliminary Bronchoalviolar Lavage - Right Assessment and Plan Assessment: Impression: 1. Acute respiratory failure secondary to severe pneumonia mucous plug presently intubated status post bronchoscopy. 2. Severe symptomatic anemia CT imaging reported thickening of the sigmoid colon and underlying mucosal lesion could not be excluded. 3. Alcohol abuse. Plan: 1. Continue symptomatic supportive measures. Case was discussed with Dr. Live anticipate extubation and weaning off of pressors within the next 24-36 hours. We'll continue to monitor on a daily basis most likely will proceed with endoscopic exam prior to discharge. Continue to monitor CBC closely. Assessment and plan a care discussed with Dr. Marques
[2018-01-26] MEDS: MULTIVITAMINS, THERA 1 EACH TAB PO SCH (13:06)
[2018-01-26] MEDS: FOLIC ACID 1 MG TAB PO SCH (13:06)
[2018-01-26] MEDS: THIAMINE 100 MG TAB PO SCH ×2 (13:06→18:04)
--- NOTE | 2018-01-26 13:48 | P.PN ---
Subjective Progress Note Date: 01/26/18 Principal diagnosis: Acute hypoxic respiratory failure secondary to left lower lobe pneumonia, left parapneumonic pleural effusion, profound anemia. And septic shock. This is a 72-year-old male patient, a chronic smoker, a chronic alcoholic, came into the hospital as the patient was becoming progressively weak to the point where he was unable to perform activities of daily today life. He came in to the emergency with generalized weakness, falling to the ground and he was unable to recover himself. Nevertheless there was no loss of consciousness or syncope. The patient in the emergency department was seen and evaluated. CAT scan of the brain was done that showed age-related atrophy and some chronic sinusitis. Chest x-ray was consistent with pulmonary granulomas consistent with old infection. The patient was found to profoundly anemic with a hemoglobin of 5.5. Troponin was minimally elevated at 0.1. The patient got transfused with packed RBC. Subsequently the patient got admitted to the medical floor and pulmonary consultation was requested knowing that the patient had a CAT scan of the chest and the findings were abnormal. Note that the patient had a full CAT scan of the chest abdomen and pelvis. CAT scan of the chest showed a limited air bronchogram involving the superior segment of the left lower lobe along with some fluid within the interlobar fissure in addition to small bibasilar pulmonary effusions. There is advanced background emphysema in addition to apical scarring and pulmonary granulomas 2 of them are seen on the right. There is also evidence of segmental compression atelectasis in lung bases bilaterally. The tracheobronchial tree was patent. Mediastinum showed some old mediastinal lymph node calcification suggestive of prior granulomatous disease. No pericardial effusion. Also, the patient showed hepatic steatosis, fatty infiltration of the liver, extensive atherosclerosis of the abdominal aorta and its branches, mild spinal canal stenosis at the level of T10-T11 and evidence of numerous sigmoid diverticulosis and questionable mild component of acute sigmoid diverticulitis and direct colonoscopic evaluation was recommended by the radiologist From the pulmonary standpoint, the patient is a chronic smoker and he has chronic exertional dyspnea and chronic congested cough. No hemoptysis. No pleurisy. No worsening shortness of breath. He can't recall a previous pneumonia back in 2016 involving the left lung base and he was hospitalized back then at [facility]. He was told that this was a severe pneumonia and he was very close to dying from this condition. He ultimately improved. Currently is no nausea or vomiting. Most of it abdominal pain. He is an alcohol drinker. He denies having to pass out from alcohol drinking. He denies having any seizure activity from alcohol drinking. He is currently on DT prophylaxis is also on nicotine patch. on 01/24/2018 the patient got transferred to the intensive care units. The patient early this morning at around 1 AM he became acutely short of breath. He became acutely hypoxic. Initially was on 2 L of oxygen by nasal cannula in progress with Dr. remigio morrison up and he was placed on the percent nonrebreather facemask. Subsequently was found to have labored breathing and rapid response team was called and the patient was placed on a BiPAP at a pressure of 12/5 cm of water with an FiO2 of 100%. Got transferred to the intensive care unit and his current pulse ox is around 91-92%. Chest x-ray shows significant abnormality and interval change compared to yesterday. There is significant amount of volume loss and interval development of atelectasis in the left lower lobe and some infiltration of the perihilar area and the left upper lobe. The patient is currently short of breath and tachypneic and in mild to moderate degree of respiratory distress even being on a BiPAP. As such have made decision to proceed with intubation and proceed with a bronchoscopic evaluation of the left lung. He may need the CAT scan of the chest repeated. He may need also to be placed on broad-spectrum antibiotics and I will restart him on a combination of Zosyn and Levaquin. His white cell count is not elevated. Is afebrile. The Benedict catheter was inserted and the urine output is diminished at this point in time. White cell count is at 6.1. Blood gases done this morning showed a pH of 7.33 with a pCO2 of 50 and pCO2 of 5700% nonrebreather facemask. He received a total of 2 units of packed RBC and hemoglobin today is 10.2. MRI of the spine was noted there is osseous structures and diffuse his energy his marrow signal and within the differential diagnoses there is a possibility of diffuse bony metastases. Patient was reevaluated today on 01/25/2018, in the ICU, on mechanical ventilation, ventilator settings are tidal volume of 400, FiO2 of 50%, assist control rate of 22, PEEP is 5. ABG is marginal with a pO2 of 78 pCO2 of 37 pH of 7.47. Patient remains on propofol is also on norepinephrine, 7 mcg/m, and propofol is 35 mcg/kg/m. Patient is arousable, follows simple instructions like wiggling toes, closing eyes, in spite of of low-dose propofol on board. Chest x-ray was reviewed, and it showed mostly a left lower lobe pneumonia left pleural effusion, and a small tiny right sided pleural effusion with atelectasis. His basic metabolic profile is normal except for low potassium of 3.1, being corrected, his CBC is relatively unremarkable. WBC count is 7.4 hemoglobin is 9.6. His hemoglobin is holding, patient received a total of 3 units of packed RBCs since admission. Patient is being followed by hematology/ oncology for what seems to be a picture of myeloproliferative disorder. Patient was reevaluated today on 01/26/2018, remains on mechanical ventilation, chest x-ray is showing worsening infiltrates in the right and left lower lobe, and bilateral pleural effusions. Patient remains on the same ventilator settings, however FiO2 was cut down to 40%, ABG showed a pO2 of 183 pCO2 of 34 pH of 7.50. Electrolytes and renal profile are normal. CBC is relatively normal, hemoglobin is holding at 8.9. Chest x-ray as noted earlier showing worsening bilateral pleural effusions and airspace disease in the lower lobes. Hence I have recommended Lasix to be given. In the meantime the patient is slowly waking up as we are slowly weaning down the propofol. Seems to follow simple instructions, but he seems to be generally weak. His norepinephrine is down to 2 mcg/m. Patient is still on antibiotics, bronchodilators, nutritional support, and I'm hoping we could consider a weaning trial on this patient today. Objective - Vital Signs Vital signs: Vital Signs Temp 98.4 F 01/26/18 12:00 Pulse 95 01/26/18 13:30 Resp 26 H 01/26/18 13:30 BP 149/61 01/24/18 12:00 Pulse Ox 100 01/26/18 13:30 Intake & Output 01/25/18 01/26/18 01/26/18 18:59 06:59 18:59 Intake Total 1441.149 2824.119 1533.419 Output Total 1555 730 1210 Balance 727.905 977.119 323.419 Weight 63.2 kg 63.2 kg Intake: IV 925 1000 525 Levofloxacin 750Mg-D5w 100 Pmx 750 mg In Dextrose/ Water 1 150ml.bag @ 100 mls/hr IVPB Q24H [facility] Rx#: [id number] Piperacillin-Tazobactam 3 150 100 .375 gm In Dextrose/Water 1 50ml.bag @ 12.5 mls/hr IVPB Q8HR [facility] Rx#: [id number] Sodium Chloride 0.9% 1, 675 900 525 000 ml @ 75 mls/hr IV . [id number] [facility] Rx#:[id number] Intake, IV Titration 812.905 192.119 798.419 Amount Levofloxacin 750Mg-D5w 500 Pmx 750 mg In Dextrose/ Water 1 150ml.bag @ 100 mls/hr IVPB Q24H [facility] Rx#: [id number] Magnesium Sulfate-D5w Pmx 50 1 gm In Dextrose/Water 1 100ml.bag @ 100 mls/hr IVPB Q1H [facility] Rx#: [id number] Norepinephrine 16 mg In 170.416 29.086 Sodium Chloride 0.9% 250 ml @ Titrate IV .Q0M [facility] Rx#:[id number] Piperacillin-Tazobactam 3 50 100 .375 gm In Dextrose/Water 1 50ml.bag @ 12.5 mls/hr IVPB Q8HR [facility] Rx#: [id number] Potassium Chloride 20 meq 150 In Water For Injection 1 100ml.bag @ 50 mls/hr IVPB Q2H [facility] Rx#: [id number] Potassium Phosphate 10 100 mmol In Sodium Chloride 0 .9% 100 ml @ 50 mls/hr IV Q2H [facility] Rx#:[id number] Propofol 1,000 mg In 92.489 163.033 98.419 Empty Bag 1 bag @ Titrate IV .Q0M [facility] Rx#: [id number] Sodium Chloride 0.9% 1, 300 000 ml @ 75 mls/hr IV . [id number] [facility] Rx#:[id number] Oral 100 Tube Feeding 40 220 210 Other 30 30 Output: Gastric Drainage 300 Urine [phone] Other: Voiding Method Indwelling Catheter Indwelling Catheter # Voids 0 ABP, PAP, CO, CI - Last Documented Arterial Blood Pressure 117/73 - Exam Physical Exam: Revealed a 72-year-old white male, cachectic looking, very thin, on mechanical ventilation. Head: Atraumatic, normocephalic. HEENT:[Neck is supple.] [No neck masses.] [No thyromegaly.] [No JVD.] PERRLA, EOMI, moist mucous membranes, no carotid bruits. No cervical adenopathy. Chest: [Diminished breath sound bilaterally, no crackles or rhonchi or wheezes. Cardiac Exam: [Normal S1 and S2, no S3 gallop, no murmur.] Abdomen: [Soft, nontender, no megaly, no rebound, no guarding, normal bowel sounds.] Extremities: [No clubbing, no edema, no cyanosis.] Venodyne boots noted in both lower extremities. Neurological Exam: [No focal neurologic deficit.], Arousable, follows simple instructions. Lymphatics: No lymphadenopathy. Psychiatric: Cannot be assessed, patient is on mechanical ventilation. - Labs CBC & Chem 7: 01/26/18 04:22 01/26/18 04:22 Labs: Abnormal Lab Results - Last 24 Hours (Table) 01/25/18 01/26/18 01/26/18 Range/Units 17:08 00:30 04:22 RBC 3.04 L (4.30-5.90) m/uL Hgb 8.9 L (13.0-17.5) gm/dL Hct 28.4 L (39.0-53.0) % RDW 23.0 H (11.5-15.5) % Lymphocytes # 0.7 L (1.0-4.8) k/uL ABG pH (7.35-7.45) ABG pCO2 (35-45) mmHg ABG pO2 (83-108) mmHg ABG HCO3 (21-25) mmol/L ABG Total CO2 (19-24) mmol/L ABG O2 Saturation (94-97) % Chloride (98-107) mmol/L BUN (9-20) mg/dL Creatinine (0.66-1.25) mg/dL Glucose (74-99) mg/dL POC Glucose (mg/dL) 114 H 112 H (75-99) mg/dL Calcium (8.4-10.2) mg/dL Ionized Calcium Nisha (4.5-5.3) mg/dL Phosphorus (2.5-4.5) mg/dL 01/26/18 01/26/18 01/26/18 Range/Units 04:22 04:59 07:03 RBC (4.30-5.90) m/uL Hgb (13.0-17.5) gm/dL Hct (39.0-53.0) % RDW (11.5-15.5) % Lymphocytes # (1.0-4.8) k/uL ABG pH 7.50 H (7.35-7.45) ABG pCO2 34 L (35-45) mmHg ABG pO2 183 H (83-108) mmHg ABG HCO3 27 H (21-25) mmol/L ABG Total CO2 28 H (19-24) mmol/L ABG O2 Saturation 100.0 H (94-97) % Chloride 110 H (98-107) mmol/L BUN 6 L (9-20) mg/dL Creatinine 0.38 L (0.66-1.25) mg/dL Glucose 112 H (74-99) mg/dL POC Glucose (mg/dL) (75-99) mg/dL Calcium 6.2 L* (8.4-10.2) mg/dL Ionized Calcium Nisha 4.3 L (4.5-5.3) mg/dL Phosphorus 1.8 L (2.5-4.5) mg/dL Microbiology - Last 24 Hours (Table) 01/24/18 09:35 Gram Stain - Final Bronchoalviolar Lavage - Right Bronchial Washings Culture - Final Assessment and Plan Assessment: Impression: 1 acute hypoxic respiratory failure requiring intubation and mechanical ventilation, most likely secondary to community-acquired pneumonia involving the left lower lobe and parapneumonic effusion, I strongly suspect sepsis and septic shock patient is requiring norepinephrine presently being tapered down and hopefully we will be able to discontinue norepinephrine. 2 symptomatic anemia possible myeloproliferative disorder, being addressed by hematology/oncology on the case, received a total of 3 units of packed RBCs so far. No blood transfusion was given in the last 24 hours. 3 chronic alcoholism 4 diffuse heterogeneous bone marrow signal, being addressed by hematology on the case. 5 troponin leak, strongly doubt acute myocardial infarction. 6 frequent premature ventricular contractions 7 generalized weakness and debility, severe protein calorie malnutrition is suspected. 8 history of diverticulosis, being addressed by GI on the case. 9 bilateral pleural effusions, exact etiology not clear, could be parapneumonic in nature. Recommendation: Continue mechanical ventilation, continue antibiotics, continue blood transfusion as needed, patient is now on Levaquin and Zosyn, continue norepinephrine for low blood pressure, GI and DVT prophylaxis, nutritional support, patient remains critically ill, I plan to wean sedation slowly today, will likely give him a weaning trial, in the meantime I have recommended a trial of Lasix 40 mg IV push times one. If the patient does while after holding sedation, and if he does well on a weaning trial using pressure support and CPAP, may even consider extubating the patient. Critical care time is 36 minutes. Time with Patient: Greater than 30
[2018-01-26 14:03] LABS: ABG Base Excess 5.1 mmol/L; ABG HCO3 29 mmol/L (21-25); ABG Oxygen Saturation 99.4 % (94-97); ABG PCO2 43 mmHg (35-45); ABG PH 7.44 (7.35-7.45); ABG PO2 113 mmHg (83-108); ABG TCO2 31 mmol/L (19-24)
[2018-01-26] MEDS ORDERED: ETOMIDATE 2 MG/ML 10 ML VIAL ONE (16:05)
[2018-01-26] MEDS ORDERED: SUCCINYLCHOLINE CHLORIDE VIAL 200 MG/10 ML VIAL IV ONE (16:05)
--- NOTE | 2018-01-26 16:25 | XR ---
EXAMINATION TYPE: XR chest 1V portable DATE OF EXAM: 01/26/2018 COMPARISON: 01/26/2018 HISTORY: Tube placement TECHNIQUE: Single frontal view of the chest is obtained. FINDINGS: Bilateral consolidation and pleural effusion with evidence of granuloma. ET, NG tube, and central line stable. No obvious pneumothorax. Heart size stable. ET tube approximately 4 cm above the jaxon. Use osteopenia and arthropathy of the shoulders. IMPRESSION: 1. Bilateral pleural-parenchymal changes correlate for pneumonia versus pulmonary edema. 2. NG tube is seen with the tip at the level the GE junction correlate for advancement of the NG tube . 3. Chronic granulomatous changes.
[2018-01-26 16:43] LABS: ABG Base Excess 4.9 mmol/L; ABG HCO3 29 mmol/L (21-25); ABG Oxygen Saturation 99.1 % (94-97); ABG PCO2 39 mmHg (35-45); ABG PH 7.47 (7.35-7.45); ABG PO2 151 mmHg (83-108); ABG TCO2 30 mmol/L (19-24)
--- NOTE | 2018-01-26 17:48 | P.PN ---
Subjective Progress Note Date: 01/26/18 Principal diagnosis: anemia Pt seen in f/u, he is being weaned from mechanical ventilation today. His eyes are open, he did not follow instructions Objective - Vital Signs Vital signs: Vital Signs Temp 98.6 F 01/26/18 16:00 Pulse 90 01/26/18 17:30 Resp 22 01/26/18 17:30 BP 149/61 01/24/18 12:00 Pulse Ox 100 01/26/18 17:30 Intake & Output 01/25/18 01/26/18 01/26/18 18:59 06:59 18:59 Intake Total 6555.185 8770.119 1910.419 Output Total 8053 757 8865 Balance 727.905 977.119 20.419 Weight 63.2 kg 63.2 kg 63.2 kg Intake: IV 925 1000 825 Levofloxacin 750Mg-D5w 100 Pmx 750 mg In Dextrose/ Water 1 150ml.bag @ 100 mls/hr IVPB Q24H [facility] Rx#: [id number] Piperacillin-Tazobactam 3 150 100 .375 gm In Dextrose/Water 1 50ml.bag @ 12.5 mls/hr IVPB Q8HR [facility] Rx#: [id number] Sodium Chloride 0.9% 1, 675 900 825 000 ml @ 75 mls/hr IV . [id number] [facility] Rx#:[id number] Intake, IV Titration 812.905 192.119 798.419 Amount Levofloxacin 750Mg-D5w 500 Pmx 750 mg In Dextrose/ Water 1 150ml.bag @ 100 mls/hr IVPB Q24H [facility] Rx#: [id number] Magnesium Sulfate-D5w Pmx 50 1 gm In Dextrose/Water 1 100ml.bag @ 100 mls/hr IVPB Q1H [facility] Rx#: [id number] Norepinephrine 16 mg In 170.416 29.086 Sodium Chloride 0.9% 250 ml @ Titrate IV .Q0M [facility] Rx#:[id number] Piperacillin-Tazobactam 3 50 100 .375 gm In Dextrose/Water 1 50ml.bag @ 12.5 mls/hr IVPB Q8HR [facility] Rx#: [id number] Potassium Chloride 20 meq 150 In Water For Injection 1 100ml.bag @ 50 mls/hr IVPB Q2H [facility] Rx#: [id number] Potassium Phosphate 10 100 mmol In Sodium Chloride 0 .9% 100 ml @ 50 mls/hr IV Q2H [facility] Rx#:[id number] Propofol 1,000 mg In 92.489 163.033 98.419 Empty Bag 1 bag @ Titrate IV .Q0M [facility] Rx#: [id number] Sodium Chloride 0.9% 1, 300 000 ml @ 75 mls/hr IV . [id number] [facility] Rx#:[id number] Oral 100 Tube Feeding 40 220 287 Other 30 30 Output: Gastric Drainage 300 Urine [phone] Other: Voiding Method Indwelling Catheter Indwelling Catheter Indwelling Catheter # Voids 0 ABP, PAP, CO, CI - Last Documented Arterial Blood Pressure 132/83 - Constitutional General appearance: Present: no acute distress, thin - EENT Eyes: Present: anicteric sclerae - Respiratory Respiratory: bilateral: CTA - Cardiovascular Heart sounds: normal: S1, S2 - Gastrointestinal General gastrointestinal: Present: normal bowel sounds, soft - Integumentary Integumentary: Present: pale - Psychiatric Psychiatric Comment(s): eyes open, tracks with eyes - Labs CBC & Chem 7: 01/26/18 04:22 01/26/18 04:22 Labs: Abnormal Lab Results - Last 24 Hours (Table) 01/26/18 01/26/18 01/26/18 Range/Units 00:30 04:22 04:22 RBC 3.04 L (4.30-5.90) m/uL Hgb 8.9 L (13.0-17.5) gm/dL Hct 28.4 L (39.0-53.0) % RDW 23.0 H (11.5-15.5) % Lymphocytes # 0.7 L (1.0-4.8) k/uL ABG pH (7.35-7.45) ABG pCO2 (35-45) mmHg ABG pO2 (83-108) mmHg ABG HCO3 (21-25) mmol/L ABG Total CO2 (19-24) mmol/L ABG O2 Saturation (94-97) % Chloride 110 H (98-107) mmol/L BUN 6 L (9-20) mg/dL Creatinine 0.38 L (0.66-1.25) mg/dL Glucose 112 H (74-99) mg/dL POC Glucose (mg/dL) 112 H (75-99) mg/dL Calcium 6.2 L* (8.4-10.2) mg/dL Ionized Calcium Nisha (4.5-5.3) mg/dL Phosphorus 1.8 L (2.5-4.5) mg/dL 01/26/18 01/26/18 01/26/18 Range/Units 04:59 07:03 14:00 RBC (4.30-5.90) m/uL Hgb (13.0-17.5) gm/dL Hct (39.0-53.0) % RDW (11.5-15.5) % Lymphocytes # (1.0-4.8) k/uL ABG pH 7.50 H (7.35-7.45) ABG pCO2 34 L (35-45) mmHg ABG pO2 183 H 113 H (83-108) mmHg ABG HCO3 27 H 29 H (21-25) mmol/L ABG Total CO2 28 H 31 H (19-24) mmol/L ABG O2 Saturation 100.0 H 99.4 H (94-97) % Chloride (98-107) mmol/L BUN (9-20) mg/dL Creatinine (0.66-1.25) mg/dL Glucose (74-99) mg/dL POC Glucose (mg/dL) (75-99) mg/dL Calcium (8.4-10.2) mg/dL Ionized Calcium Nisha 4.3 L (4.5-5.3) mg/dL Phosphorus (2.5-4.5) mg/dL 01/26/18 Range/Units 16:41 RBC (4.30-5.90) m/uL Hgb (13.0-17.5) gm/dL Hct (39.0-53.0) % RDW (11.5-15.5) % Lymphocytes # (1.0-4.8) k/uL ABG pH 7.47 H (7.35-7.45) ABG pCO2 (35-45) mmHg ABG pO2 151 H (83-108) mmHg ABG HCO3 29 H (21-25) mmol/L ABG Total CO2 30 H (19-24) mmol/L ABG O2 Saturation 99.1 H (94-97) % Chloride (98-107) mmol/L BUN (9-20) mg/dL Creatinine (0.66-1.25) mg/dL Glucose (74-99) mg/dL POC Glucose (mg/dL) (75-99) mg/dL Calcium (8.4-10.2) mg/dL Ionized Calcium Nisha (4.5-5.3) mg/dL Phosphorus (2.5-4.5) mg/dL Microbiology - Last 24 Hours (Table) 01/24/18 09:35 Gram Stain - Final Bronchoalviolar Lavage - Right Bronchial Washings Culture - Final Assessment and Plan (1) Anemia Narrative/Plan: Work up has not identified a deficient state that is correctable, myeloma work up is negative. Recommendation is for GI work up, which is pending as the pt is not hemodynamically stable. CBC daily, transfuse to keep Hgb>7 unless symptomatic Current Visit: Yes Status: Acute Priority: High Code(s): D64.9 - ANEMIA, UNSPECIFIED SNOMED Code(s): 273480629 Plan: Dr. Bonner did discuss case wtih Dr. Shrestha, specifically the MRI of the LS. The description of the look of the bones (diffuse heterogeneous pattern) can be present in acutely ill patients. Agree with recommendation for f/u imaging after recuperation.
[2018-01-26 17:58] LABS: Glucose,Whole Blood 111 mg/dL (75-99)
[2018-01-27 00:16] LABS: Glucose,Whole Blood 124 mg/dL (75-99)
[2018-01-27] MEDS: IPRATROPIUM-ALBUTEROL 3 ML NEB INHALATION SCH ×6 (04:08→23:07)
[2018-01-27 04:51] LABS: Glucose,Whole Blood 137 mg/dL (75-99)
[2018-01-27] MEDS: NOREPINEPHRINE 16 MG in SODIUM CHLORIDE 0.9% 250 ML IV SCH (04:53)
[2018-01-27 05:00] LABS: Anisocytosis Moderate; Basophils % (A) 0 %; Eosinophils # (A) 0.2 k/uL (0-0.7); Eosinophils % (A) 3 %; HCT 28.1 % (39.0-53.0); HGB 8.8 gm/dL (13.0-17.5); Hypochromasia Marked; Lymphocytes # (A) 0.9 k/uL (1.0-4.8); Lymphocytes % (A) 14 %; MCH 29.2 pg (25.0-35.0); MCHC 31.4 g/dL (31.0-37.0); Macrocytosis Slight; Mean Platelet Volume 9.3; Microcytosis Slight; Monocytes # (A) 0.3 k/uL (0-1.0); Monocytes % (A) 4 %; Neutrophils # (A) 5.1 k/uL (1.3-7.7); Neutrophils % (A) 78 %; Platelet Count 289 k/uL (150-450); Poikilocytosis Moderate; RBC 3.02 m/uL (4.30-5.90); RDW 22.6 % (11.5-15.5); WBC 6.5 k/uL (3.8-10.6)
[2018-01-27] MEDS: PROPOFOL 1,000 MG in EMPTY BAG 1 BAG IV SCH ×2 (05:08→18:37)
[2018-01-27 05:17] LABS: Anion Gap 1 mmol/L; Blood Urea Nitrogen 7 mg/dL (9-20); Carbon Dioxide 28 mmol/L (22-30); Chloride 108 mmol/L (98-107); Glucose 121 mg/dL (74-99); Phosphorus 2.6 mg/dL (2.5-4.5); Potassium 3.6 mmol/L (3.5-5.1); Sodium 137 mmol/L (137-145)
[2018-01-27 05:24] LABS: Calcium 6.4 mg/dL (8.4-10.2)
[2018-01-27] MEDS ORDERED: POTASSIUM CHLORIDE ER 20 MEQ TAB.ER PO SCH (06:00)
[2018-01-27 07:42] LABS: ABG Base Excess 6.4 mmol/L; ABG HCO3 30 mmol/L (21-25); ABG Oxygen Saturation 99.7 % (94-97); ABG PCO2 40 mmHg (35-45); ABG PH 7.48 (7.35-7.45); ABG PO2 138 mmHg (83-108); ABG TCO2 31 mmol/L (19-24)
--- NOTE | 2018-01-27 08:12 | XR ---
EXAMINATION TYPE: XR chest 1V portable DATE OF EXAM: 01/27/2018 COMPARISON: Prior chest x-ray 01/26/2018 HISTORY: Intubated TECHNIQUE: frontal view of the chest is obtained on 2 images. FINDINGS: Endotracheal tube and NG tube, left jugular central venous catheter are overlying appropri ate positions. There is no evident pneumothorax. There are overlying cardiac leads. Evidence of old g ranulomatous disease again seen. Bibasilar increased density obscures the hemidiaphragms, there is bl unting of the costophrenic angles. Heart size is stable. Pulmonary artery, otto are unchanged. IMPRESSION: Bibasilar effusions and associated atelectasis, correlate to exclude pneumonia versus ed pito.
[2018-01-27 08:45] LABS: Glucose,Whole Blood 82 mg/dL (75-99)
[2018-01-27] MEDS ORDERED: METOCLOPRAMIDE 5 MG/ML 2 ML VIAL IVP PRN (09:50)
[2018-01-27] MEDS: NICOTINE 21MG/24HR PATCH TRANSDERM SCH (10:03)
[2018-01-27] MEDS: guaiFENesin 600 MG TABLET.ER PO SCH ×2 (10:04→21:17)
[2018-01-27] MEDS: PANTOPRAZOLE 40 MG/10 ML VIAL IV SCH (10:04)
[2018-01-27] MEDS: CHLORHEXIDINE GLUCONATE 15 ML CUP MUCOUS MEM SCH ×2 (10:04→21:16)
[2018-01-27] MEDS: FUROSEMIDE 10 MG/ML 4 ML VIAL IV SCH ×2 (10:05→21:16)
[2018-01-27] MEDS: LEVOFLOXACIN 750MG-D5W PMX 750 MG in DEXTROSE/WATER 1 150ML.BAG IVPB SCH (10:48)
--- NOTE | 2018-01-27 11:09 | P.PN ---
Subjective Progress Note Date: 01/27/18 Principal diagnosis: Acute hypoxic respiratory failure secondary to left lower lobe pneumonia, left parapneumonic pleural effusion, profound anemia. And septic shock. This is a 72-year-old male patient, a chronic smoker, a chronic alcoholic, came into the hospital as the patient was becoming progressively weak to the point where he was unable to perform activities of daily today life. He came in to the emergency with generalized weakness, falling to the ground and he was unable to recover himself. Nevertheless there was no loss of consciousness or syncope. The patient in the emergency department was seen and evaluated. CAT scan of the brain was done that showed age-related atrophy and some chronic sinusitis. Chest x-ray was consistent with pulmonary granulomas consistent with old infection. The patient was found to profoundly anemic with a hemoglobin of 5.5. Troponin was minimally elevated at 0.1. The patient got transfused with packed RBC. Subsequently the patient got admitted to the medical floor and pulmonary consultation was requested knowing that the patient had a CAT scan of the chest and the findings were abnormal. Note that the patient had a full CAT scan of the chest abdomen and pelvis. CAT scan of the chest showed a limited air bronchogram involving the superior segment of the left lower lobe along with some fluid within the interlobar fissure in addition to small bibasilar pulmonary effusions. There is advanced background emphysema in addition to apical scarring and pulmonary granulomas 2 of them are seen on the right. There is also evidence of segmental compression atelectasis in lung bases bilaterally. The tracheobronchial tree was patent. Mediastinum showed some old mediastinal lymph node calcification suggestive of prior granulomatous disease. No pericardial effusion. Also, the patient showed hepatic steatosis, fatty infiltration of the liver, extensive atherosclerosis of the abdominal aorta and its branches, mild spinal canal stenosis at the level of T10-T11 and evidence of numerous sigmoid diverticulosis and questionable mild component of acute sigmoid diverticulitis and direct colonoscopic evaluation was recommended by the radiologist From the pulmonary standpoint, the patient is a chronic smoker and he has chronic exertional dyspnea and chronic congested cough. No hemoptysis. No pleurisy. No worsening shortness of breath. He can't recall a previous pneumonia back in 2016 involving the left lung base and he was hospitalized back then at [facility]. He was told that this was a severe pneumonia and he was very close to dying from this condition. He ultimately improved. Currently is no nausea or vomiting. Most of it abdominal pain. He is an alcohol drinker. He denies having to pass out from alcohol drinking. He denies having any seizure activity from alcohol drinking. He is currently on DT prophylaxis is also on nicotine patch. on 01/24/2018 the patient got transferred to the intensive care units. The patient early this morning at around 1 AM he became acutely short of breath. He became acutely hypoxic. Initially was on 2 L of oxygen by nasal cannula in progress with Dr. remigio morrison up and he was placed on the percent nonrebreather facemask. Subsequently was found to have labored breathing and rapid response team was called and the patient was placed on a BiPAP at a pressure of 12/5 cm of water with an FiO2 of 100%. Got transferred to the intensive care unit and his current pulse ox is around 91-92%. Chest x-ray shows significant abnormality and interval change compared to yesterday. There is significant amount of volume loss and interval development of atelectasis in the left lower lobe and some infiltration of the perihilar area and the left upper lobe. The patient is currently short of breath and tachypneic and in mild to moderate degree of respiratory distress even being on a BiPAP. As such have made decision to proceed with intubation and proceed with a bronchoscopic evaluation of the left lung. He may need the CAT scan of the chest repeated. He may need also to be placed on broad-spectrum antibiotics and I will restart him on a combination of Zosyn and Levaquin. His white cell count is not elevated. Is afebrile. The Benedict catheter was inserted and the urine output is diminished at this point in time. White cell count is at 6.1. Blood gases done this morning showed a pH of 7.33 with a pCO2 of 50 and pCO2 of 5700% nonrebreather facemask. He received a total of 2 units of packed RBC and hemoglobin today is 10.2. MRI of the spine was noted there is osseous structures and diffuse his energy his marrow signal and within the differential diagnoses there is a possibility of diffuse bony metastases. Patient was reevaluated today on 01/25/2018, in the ICU, on mechanical ventilation, ventilator settings are tidal volume of 400, FiO2 of 50%, assist control rate of 22, PEEP is 5. ABG is marginal with a pO2 of 78 pCO2 of 37 pH of 7.47. Patient remains on propofol is also on norepinephrine, 7 mcg/m, and propofol is 35 mcg/kg/m. Patient is arousable, follows simple instructions like wiggling toes, closing eyes, in spite of of low-dose propofol on board. Chest x-ray was reviewed, and it showed mostly a left lower lobe pneumonia left pleural effusion, and a small tiny right sided pleural effusion with atelectasis. His basic metabolic profile is normal except for low potassium of 3.1, being corrected, his CBC is relatively unremarkable. WBC count is 7.4 hemoglobin is 9.6. His hemoglobin is holding, patient received a total of 3 units of packed RBCs since admission. Patient is being followed by hematology/ oncology for what seems to be a picture of myeloproliferative disorder. Patient was reevaluated today on 01/26/2018, remains on mechanical ventilation, chest x-ray is showing worsening infiltrates in the right and left lower lobe, and bilateral pleural effusions. Patient remains on the same ventilator settings, however FiO2 was cut down to 40%, ABG showed a pO2 of 183 pCO2 of 34 pH of 7.50. Electrolytes and renal profile are normal. CBC is relatively normal, hemoglobin is holding at 8.9. Chest x-ray as noted earlier showing worsening bilateral pleural effusions and airspace disease in the lower lobes. Hence I have recommended Lasix to be given. In the meantime the patient is slowly waking up as we are slowly weaning down the propofol. Seems to follow simple instructions, but he seems to be generally weak. His norepinephrine is down to 2 mcg/m. Patient is still on antibiotics, bronchodilators, nutritional support, and I'm hoping we could consider a weaning trial on this patient today. Patient was reevaluated today on 01/27/2018, patient was extubated briefly yesterday, however shortly after I left the ICU, patient had a sudden episode of desaturation, although his initial ABG before extubation was excellent, and the patient had an excellent response to diuretics prior to extubation. Apparently the patient must have developed a mucous plug, and he was having difficulty clearing his secretions according to the nurse was taking care of the patient. Patient was immediately reintubated by [employer], and now he is back on mechanical ventilation. Ventilator settings today are assist control rate of 22 tidal volume of 400 FiO2 of 40%, PEEP is at 5. He is on propofol at 35 mcg/kg/m, he is also on norepinephrine at 1 mcg/m. ABG this morning showed a pO2 of 138 pCO2 of 40 pH of 7.48. Potassium is low at 2.0, corrected and repeat potassium was 3.7. Calcium is 6.4, however her albumin is 2.5. Renal profile is normal. CBC showed a WBC count of 6.5 hemoglobin of 8.8, holding nicely. Chest x-ray showed bilateral effusions and associated atelectasis. Hence more Lasix will be given today, and I would maintain him on Lasix at 40 mg IV push every 12 hours. No bowel movements in the last few days, hence the patient will be started on Reglan. Patient was seen by hematology on consultation, workup for multiple myeloma has been negative, and eventually the patient will need MRI of the lumbosacral spine. Objective - Vital Signs Vital signs: Vital Signs Temp 97.6 F 01/27/18 08:30 Pulse 74 01/27/18 10:30 Resp 24 01/27/18 10:30 BP 104/73 01/27/18 10:30 Pulse Ox 100 01/27/18 10:30 Intake & Output 01/26/18 01/27/18 01/27/18 18:59 06:59 18:59 Intake Total 2009.419 1051.057 324.849 Output Total 1980 1380 490 Balance 29.419 -328.943 -165.151 Weight 63.2 kg 66.8 kg Intake: IV 730 304 104 Potassium Phosphate 10 100 mmol In Sodium Chloride 0 .9% 100 ml @ 50 mls/hr IV Q2H [facility] Rx#:[id number] Sodium Chloride 0.9% 1, 220 80 000 ml @ 20 mls/hr IV . Q24H [facility] Rx#:[id number] Sodium Chloride 0.9% 1, 630 30 000 ml @ 75 mls/hr IV . [id number] [facility] Rx#:[id number] pressure bag 54 24 Intake, IV Titration 898.419 130.057 79.849 Amount Levofloxacin 750Mg-D5w 500 Pmx 750 mg In Dextrose/ Water 1 150ml.bag @ 100 mls/hr IVPB Q24H [facility] Rx#: [id number] Norepinephrine 16 mg In 45.129 8.633 Sodium Chloride 0.9% 250 ml @ Titrate IV .Q0M [facility] Rx#:[id number] Piperacillin-Tazobactam 3 100 .375 gm In Dextrose/Water 1 50ml.bag @ 12.5 mls/hr IVPB Q8HR [facility] Rx#: [id number] Potassium Phosphate 10 100 mmol In Sodium Chloride 0 .9% 100 ml @ 50 mls/hr IV Q2H [facility] Rx#:[id number] Propofol 1,000 mg In 198.419 84.928 71.216 Empty Bag 1 bag @ Titrate IV .Q0M S[facility]Y Rx#: [id number] Oral 100 Tube Feeding 381 517 141 Output: Urine 1980 1380 490 Other: Voiding Method Indwelling Catheter Indwelling Catheter # Voids 0 ABP, PAP, CO, CI - Last Documented Arterial Blood Pressure 127/77 - Exam Physical Exam: Revealed a 72-year-old white male, cachectic looking, very thin, on mechanical ventilation. Head: Atraumatic, normocephalic. Endotracheal tube and orogastric tube are intact HEENT:[Neck is supple.] [No neck masses.] [No thyromegaly.] [No JVD.] PERRLA, EOMI, moist mucous membranes, no carotid bruits. Chest: [Diminished breath sound bilaterally, no crackles or rhonchi or wheezes. No chest wall tenderness, symmetrical expansion is noted. Cardiac Exam: [Normal S1 and S2, no S3 gallop, no murmur.] Abdomen: [Soft, nontender, no megaly, no rebound, no guarding, normal bowel sounds.] Extremities: [No clubbing, no edema, no cyanosis.] Venodyne boots noted in both lower extremities. Patient cannot receive anticoagulation therapy at this point. Neurological Exam: Cannot be assessed at this point, patient is sedated, on propofol drip. Lymphatics: No lymphadenopathy. Psychiatric: Cannot be assessed, patient is on mechanical ventilation. , On propofol drip. - Labs CBC & Chem 7: 01/27/18 04:51 01/27/18 10:40 Labs: Abnormal Lab Results - Last 24 Hours (Table) 01/26/18 01/26/18 01/26/18 Range/Units 14:00 16:41 17:55 RBC (4.30-5.90) m/uL Hgb (13.0-17.5) gm/dL Hct (39.0-53.0) % RDW (11.5-15.5) % Lymphocytes # (1.0-4.8) k/uL ABG pH 7.47 H (7.35-7.45) ABG pO2 113 H 151 H (83-108) mmHg ABG HCO3 29 H 29 H (21-25) mmol/L ABG Total CO2 31 H 30 H (19-24) mmol/L ABG O2 Saturation 99.4 H 99.1 H (94-97) % Potassium (3.5-5.1) mmol/L Chloride (98-107) mmol/L BUN (9-20) mg/dL Creatinine (0.66-1.25) mg/dL Glucose (74-99) mg/dL POC Glucose (mg/dL) 111 H (75-99) mg/dL Calcium (8.4-10.2) mg/dL 01/27/18 01/27/18 01/27/18 Range/Units 00:15 04:49 04:51 RBC 3.02 L (4.30-5.90) m/uL Hgb 8.8 L (13.0-17.5) gm/dL Hct 28.1 L (39.0-53.0) % RDW 22.6 H (11.5-15.5) % Lymphocytes # 0.9 L (1.0-4.8) k/uL ABG pH (7.35-7.45) ABG pO2 (83-108) mmHg ABG HCO3 (21-25) mmol/L ABG Total CO2 (19-24) mmol/L ABG O2 Saturation (94-97) % Potassium (3.5-5.1) mmol/L Chloride (98-107) mmol/L BUN (9-20) mg/dL Creatinine (0.66-1.25) mg/dL Glucose (74-99) mg/dL POC Glucose (mg/dL) 124 H 137 H (75-99) mg/dL Calcium (8.4-10.2) mg/dL 01/27/18 01/27/18 01/27/18 Range/Units 04:51 07:30 09:50 RBC (4.30-5.90) m/uL Hgb (13.0-17.5) gm/dL Hct (39.0-53.0) % RDW (11.5-15.5) % Lymphocytes # (1.0-4.8) k/uL ABG pH 7.48 H (7.35-7.45) ABG pO2 138 H (83-108) mmHg ABG HCO3 30 H (21-25) mmol/L ABG Total CO2 31 H (19-24) mmol/L ABG O2 Saturation 99.7 H (94-97) % Potassium 2.0 L* (3.5-5.1) mmol/L Chloride 108 H (98-107) mmol/L BUN 7 L (9-20) mg/dL Creatinine 0.40 L (0.66-1.25) mg/dL Glucose 121 H (74-99) mg/dL POC Glucose (mg/dL) (75-99) mg/dL Calcium 6.4 L* (8.4-10.2) mg/dL Microbiology - Last 24 Hours (Table) 01/24/18 09:35 Gram Stain - Final Bronchoalviolar Lavage - Right Bronchial Washings Culture - Final Assessment and Plan Assessment: Impression: 1 acute hypoxic respiratory failure requiring intubation and mechanical ventilation, most likely secondary to community-acquired pneumonia involving the left lower lobe and parapneumonic effusion, 2 symptomatic anemia possible myeloproliferative disorder, being addressed by hematology/oncology on the case, received a total of 3 units of packed RBCs so far. No blood transfusion was given in the last 24 hours. 3 chronic alcoholism 4 diffuse heterogeneous bone marrow signal, being addressed by hematology on the case. Workup for multiple myeloma was negative. 5 troponin leak, strongly doubt acute myocardial infarction. 6 frequent premature ventricular contractions 7 generalized weakness and debility, severe protein calorie malnutrition is suspected. 8 history of diverticulosis, presently stable 9 bilateral pleural effusions, exact etiology not clear, could be parapneumonic in nature. We will start the patient on a maintenance dose of Lasix if not improved may consider ultrasound guided thoracentesis. 10 possible sepsis and septic shock secondary to pneumonia as noted above. 11 status post extubation and reintubation on 01/26/2018. May have developed mucous plug and could not clear secretions, patient had to be reintubated shortly after he was extubated. Recommendation: Continue ventilatory support, hemodynamic support, antibiotics, diuretics, GI prophylaxis, DVT prophylaxis, nutritional support, will interrupt sedation again today, we'll give the patient a possible weaning trial, however I would not tatum to extubating the patient at this point yet, I will diurese the patient, will consider ultrasound guided thoracentesis of pleural effusions if no response to diuretics. We'll continue to follow closely, patient remains critically ill, discussed his condition with the different nursing staff on the case. Critical care time is 33 minutes Time with Patient: Greater than 30
--- NOTE | 2018-01-27 11:13 | P.PN ---
Subjective Progress Note Date: 01/27/18 Principal diagnosis: Anemia 72-year-old gentleman admitted with left lower lobe pneumonia with septic shock , severe symptomatic anemia hemoglobin of 5.5 requiring [address] abdomen and pelvis reported thickening of the sigmoid colon underlying lesion could not be excluded. Status post bronchoscopy. Patient was extubated yesterday but reintubated within a few hours. Presently intubated sedated. Nursing reports no evidence of hematemesis hematochezia or melena. Hemoglobin 8.8. No BM since 01/24/18. Objective - Vital Signs Vital signs: Vital Signs Temp 97.6 F 01/27/18 08:30 Pulse 74 01/27/18 10:30 Resp 24 01/27/18 10:30 BP 104/73 01/27/18 10:30 Pulse Ox 100 01/27/18 10:30 Intake & Output 01/26/18 01/27/18 01/27/18 18:59 06:59 18:59 Intake Total 2009.419 1051.057 324.849 Output Total 1980 1380 490 Balance 29.419 -328.943 -165.151 Weight 63.2 kg 66.8 kg Intake: IV 730 304 104 Potassium Phosphate 10 100 mmol In Sodium Chloride 0 .9% 100 ml @ 50 mls/hr IV Q2H [facility] Rx#:[id number] Sodium Chloride 0.9% 1, 220 80 000 ml @ 20 mls/hr IV . Q24H [facility] Rx#:[id number] Sodium Chloride 0.9% 1, 630 30 000 ml @ 75 mls/hr IV . [id number] [facility] Rx#:[id number] pressure bag 54 24 Intake, IV Titration 898.419 130.057 79.849 Amount Levofloxacin 750Mg-D5w 500 Pmx 750 mg In Dextrose/ Water 1 150ml.bag @ 100 mls/hr IVPB Q24H [facility] Rx#: [id number] Norepinephrine 16 mg In 45.129 8.633 Sodium Chloride 0.9% 250 ml @ Titrate IV .Q0M [facility] Rx#:[id number] Piperacillin-Tazobactam 3 100 .375 gm In Dextrose/Water 1 50ml.bag @ 12.5 mls/hr IVPB Q8HR [facility] Rx#: [id number] Potassium Phosphate 10 100 mmol In Sodium Chloride 0 .9% 100 ml @ 50 mls/hr IV Q2H [facility] Rx#:[id number] Propofol 1,000 mg In 198.419 84.928 71.216 Empty Bag 1 bag @ Titrate IV .Q0M [facility] Rx#: [id number] Oral 100 Tube Feeding 381 517 141 Output: Urine 1980 1380 490 Other: Voiding Method Indwelling Catheter Indwelling Catheter # Voids 0 ABP, PAP, CO, CI - Last Documented Arterial Blood Pressure 127/77 - Exam General appearance: The patient is intubated sedated. HET: Head is normocephalic and atraumatic. Pupils are equal and reactive. Oropharynx is clear without lesions. Neck: Supple without lymphadenopathy. Trachea midline. Heart: S1 S2. Regular rate and rhythm. Lungs: No crackles or wheezes are heard. Abdomen: Soft, nontender, nondistended with bowel sounds. No peritoneal signs. No palpable organomegaly or masses. Extremities: +2 bilateral edema to upper and lower extremities. Neurological: Sedated - Labs CBC & Chem 7: 01/27/18 04:51 01/27/18 10:40 Labs: Abnormal Lab Results - Last 24 Hours (Table) 01/26/18 01/26/18 01/26/18 Range/Units 14:00 16:41 17:55 RBC (4.30-5.90) m/uL Hgb (13.0-17.5) gm/dL Hct (39.0-53.0) % RDW (11.5-15.5) % Lymphocytes # (1.0-4.8) k/uL ABG pH 7.47 H (7.35-7.45) ABG pO2 113 H 151 H (83-108) mmHg ABG HCO3 29 H 29 H (21-25) mmol/L ABG Total CO2 31 H 30 H (19-24) mmol/L ABG O2 Saturation 99.4 H 99.1 H (94-97) % Potassium (3.5-5.1) mmol/L Chloride (98-107) mmol/L BUN (9-20) mg/dL Creatinine (0.66-1.25) mg/dL Glucose (74-99) mg/dL POC Glucose (mg/dL) 111 H (75-99) mg/dL Calcium (8.4-10.2) mg/dL 01/27/18 01/27/18 01/27/18 Range/Units 00:15 04:49 04:51 RBC 3.02 L (4.30-5.90) m/uL Hgb 8.8 L (13.0-17.5) gm/dL Hct 28.1 L (39.0-53.0) % RDW 22.6 H (11.5-15.5) % Lymphocytes # 0.9 L (1.0-4.8) k/uL ABG pH (7.35-7.45) ABG pO2 (83-108) mmHg ABG HCO3 (21-25) mmol/L ABG Total CO2 (19-24) mmol/L ABG O2 Saturation (94-97) % Potassium (3.5-5.1) mmol/L Chloride (98-107) mmol/L BUN (9-20) mg/dL Creatinine (0.66-1.25) mg/dL Glucose (74-99) mg/dL POC Glucose (mg/dL) 124 H 137 H (75-99) mg/dL Calcium (8.4-10.2) mg/dL 01/27/18 01/27/18 01/27/18 Range/Units 04:51 07:30 09:50 RBC (4.30-5.90) m/uL Hgb (13.0-17.5) gm/dL Hct (39.0-53.0) % RDW (11.5-15.5) % Lymphocytes # (1.0-4.8) k/uL ABG pH 7.48 H (7.35-7.45) ABG pO2 138 H (83-108) mmHg ABG HCO3 30 H (21-25) mmol/L ABG Total CO2 31 H (19-24) mmol/L ABG O2 Saturation 99.7 H (94-97) % Potassium 2.0 L* (3.5-5.1) mmol/L Chloride 108 H (98-107) mmol/L BUN 7 L (9-20) mg/dL Creatinine 0.40 L (0.66-1.25) mg/dL Glucose 121 H (74-99) mg/dL POC Glucose (mg/dL) (75-99) mg/dL Calcium 6.4 L* (8.4-10.2) mg/dL Microbiology - Last 24 Hours (Table) 01/24/18 09:35 Gram Stain - Final Bronchoalviolar Lavage - Right Bronchial Washings Culture - Final Assessment and Plan Assessment: Impression: 1. Acute respiratory failure secondary to severe pneumonia mucous plug presently intubated status post bronchoscopy. 2. Severe symptomatic anemia CT imaging reported thickening of the sigmoid colon and underlying mucosal lesion could not be excluded. 3. Alcohol abuse. Plan: 1. Continue symptomatic supportive measures. Case was discussed with Dr. Live we'll plan on endoscopic workup for CT findings once patient has been extubated and remains stable. We'll continue to monitor on a daily basis most likely will proceed with endoscopic exam prior to discharge. Continue to monitor CBC closely. Assessment and plan a care discussed with Dr. Marques
[2018-01-27 11:54] LABS: Glucose,Whole Blood 120 mg/dL (75-99)
[2018-01-27] MEDS: PIPERACILLIN-TAZOBACTAM 3.375 GM in DEXTROSE/WATER 1 50ML.BAG IVPB SCH ×2 (12:01→17:45)
[2018-01-27] MEDS: MULTIVITAMINS, THERA 1 EACH TAB PO SCH (12:27)
[2018-01-27] MEDS: THIAMINE 100 MG TAB PO SCH ×2 (12:27→18:09)
[2018-01-27] MEDS: FOLIC ACID 1 MG TAB PO SCH (12:28)
--- NOTE | 2018-01-27 13:48 | P.PN ---
Subjective Progress Note Date: 01/27/18 Principal diagnosis: weakness Patient is a 72-year-old male with history of tobacco and alcohol abuse but no medical history who presented to the ER via EMS after falling to the ground and being unable to recover. In the ER he underwent an extensive evaluation. They did a CT brain which showed some chronic sinusitis site with age-appropriate atrophy. Chest x-ray showed old granulomatous disease. Vital signs were within normal limits. Initial laboratory analysis shows severe anemia with a hemoglobin of 5.5 and elevated troponin at 0.147. He was ordered 1 unit of packed red blood cells. He was also found to have a significantly low potassium level and potassium was replaced. Arrangements are made for admission. Oncology was consulted. Initial evaluation showed a hypoproliferative anemia consistent with anemia of chronic disease and an elevated ferritin level. Patient has not been having bowel movements and a fecal occult has not been obtained yet. He was seen by neurology MRI lumbar spine demonstrated heterogenous marrow signal pattern consistent with diffuse ravinder mets, it also showed coloni c dowel wall thickening. Neurology felt weakness was due to metabolic derangements. He was seen by pulmonary who did not feel there is any nodules meeting acute bronchial with biopsy. He was seen by GI after CT abdomen and pelvis showed diverticulitis and unusual segment of sigmoid colon. Plans had been for EGD and colonoscopy. On the morning of 01/24 he developed acute respiratory distress. He subsequently was transferred to the ICU intubated, brought, had a central and arterial line placed. Bronchoscopy did not show any abnormal mucosal lesions but did show mucus plugging area and his colonoscopy and EGD were held off on until the patient was more clinically stable. Still requiring small amounts of levophed on the morning of 01/27. He is extubated on the afternoon of 01/26 but required reintubation due to inability to clear secretions. Patient seen and examined at bedside. Sedated on vent, not following commands at this time, case discussed with nursing patient required weight reintubation yesterday afternoon. Objective - Vital Signs Vital signs: Vital Signs Temp 98.2 F 01/27/18 12:00 Pulse 90 01/27/18 12:30 Resp 18 01/27/18 12:30 BP 97/66 01/27/18 12:30 Pulse Ox 100 01/27/18 12:30 Intake & Output 01/26/18 01/27/18 01/27/18 18:59 06:59 18:59 Intake Total 2008.419 1051.057 725.854 Output Total 1979 1380 1490 Balance 29.419 -328.943 -764.146 Weight 63.2 kg 66.8 kg Intake: IV 730 304 356 Levofloxacin 750Mg-D5w 100 Pmx 750 mg In Dextrose/ Water 1 150ml.bag @ 100 mls/hr IVPB Q24H [facility] Rx#: [id number] Piperacillin-Tazobactam 3 100 .375 gm In Dextrose/Water 1 50ml.bag @ 12.5 mls/hr IVPB Q8HR [facility] Rx#: [id number] Potassium Phosphate 10 100 mmol In Sodium Chloride 0 .9% 100 ml @ 50 mls/hr IV Q2H [facility] Rx#:[id number] Sodium Chloride 0.9% 1, 220 120 000 ml @ 20 mls/hr IV . Q24H [facility] Rx#:[id number] Sodium Chloride 0.9% 1, 630 30 000 ml @ 75 mls/hr IV . [id number] [facility] Rx#:[id number] pressure bag 54 36 Intake, IV Titration 898.419 130.057 87.854 Amount Levofloxacin 750Mg-D5w 500 Pmx 750 mg In Dextrose/ Water 1 150ml.bag @ 100 mls/hr IVPB Q24H [facility] Rx#: [id number] Norepinephrine 16 mg In 45.129 8.633 Sodium Chloride 0.9% 250 ml @ Titrate IV .Q0M [facility] Rx#:[id number] Piperacillin-Tazobactam 3 100 .375 gm In Dextrose/Water 1 50ml.bag @ 12.5 mls/hr IVPB Q8HR [facility] Rx#: [id number] Potassium Phosphate 10 100 mmol In Sodium Chloride 0 .9% 100 ml @ 50 mls/hr IV Q2H [facility] Rx#:[id number] Propofol 1,000 mg In 198.419 84.928 79.221 Empty Bag 1 bag @ Titrate IV .Q0M [facility] Rx#: [id number] Oral 100 Tube Feeding 381 517 282 Output: Urine 1979 1380 1490 Other: Voiding Method Indwelling Catheter Indwelling Catheter Indwelling Catheter # Voids 0 ABP, PAP, CO, CI - Last Documented Arterial Blood Pressure 105/62 - Exam General: Ill appearing, no distress, appears older than stated age, cachectic Derm: warm, dry Head: atraumatic, normocephalic, symmetric Eyes: Pupils equal round reactive to light, no lid lesion anicteric sclera Neck: Supple, trachea midline, no cervical lymphadenopathy Cardiovascular: S1S2 reg, no murmur, positive posterior tibial pulse bilateral, Lungs: CTA bilaterally, no accessory muscle use, on vent Abdominal: soft, nontender to palpation, no guarding, no appreciable organomegaly Ext: no gross muscle atrophy, anasarca, no contractures Psych: Sedated on vent - Labs CBC & Chem 7: 01/27/18 04:51 01/27/18 10:40 Labs: Abnormal Lab Results - Last 24 Hours (Table) 01/26/18 01/26/18 01/26/18 Range/Units 14:00 16:41 17:55 RBC (4.30-5.90) m/uL Hgb (13.0-17.5) gm/dL Hct (39.0-53.0) % RDW (11.5-15.5) % Lymphocytes # (1.0-4.8) k/uL ABG pH 7.47 H (7.35-7.45) ABG pO2 113 H 151 H (83-108) mmHg ABG HCO3 29 H 29 H (21-25) mmol/L ABG Total CO2 31 H 30 H (19-24) mmol/L ABG O2 Saturation 99.4 H 99.1 H (94-97) % Potassium (3.5-5.1) mmol/L Chloride (98-107) mmol/L BUN (9-20) mg/dL Creatinine (0.66-1.25) mg/dL Glucose (74-99) mg/dL POC Glucose (mg/dL) 111 H (75-99) mg/dL Calcium (8.4-10.2) mg/dL 01/27/18 01/27/18 01/27/18 Range/Units 00:15 04:49 04:51 RBC 3.02 L (4.30-5.90) m/uL Hgb 8.8 L (13.0-17.5) gm/dL Hct 28.1 L (39.0-53.0) % RDW 22.6 H (11.5-15.5) % Lymphocytes # 0.9 L (1.0-4.8) k/uL ABG pH (7.35-7.45) ABG pO2 (83-108) mmHg ABG HCO3 (21-25) mmol/L ABG Total CO2 (19-24) mmol/L ABG O2 Saturation (94-97) % Potassium (3.5-5.1) mmol/L Chloride (98-107) mmol/L BUN (9-20) mg/dL Creatinine (0.66-1.25) mg/dL Glucose (74-99) mg/dL POC Glucose (mg/dL) 124 H 137 H (75-99) mg/dL Calcium (8.4-10.2) mg/dL 01/27/18 01/27/18 01/27/18 Range/Units 04:51 07:30 09:50 RBC (4.30-5.90) m/uL Hgb (13.0-17.5) gm/dL Hct (39.0-53.0) % RDW (11.5-15.5) % Lymphocytes # (1.0-4.8) k/uL ABG pH 7.48 H (7.35-7.45) ABG pO2 138 H (83-108) mmHg ABG HCO3 30 H (21-25) mmol/L ABG Total CO2 31 H (19-24) mmol/L ABG O2 Saturation 99.7 H (94-97) % Potassium 2.0 L* (3.5-5.1) mmol/L Chloride 108 H (98-107) mmol/L BUN 7 L (9-20) mg/dL Creatinine 0.40 L (0.66-1.25) mg/dL Glucose 121 H (74-99) mg/dL POC Glucose (mg/dL) (75-99) mg/dL Calcium 6.4 L* (8.4-10.2) mg/dL 01/27/18 Range/Units 11:52 RBC (4.30-5.90) m/uL Hgb (13.0-17.5) gm/dL Hct (39.0-53.0) % RDW (11.5-15.5) % Lymphocytes # (1.0-4.8) k/uL ABG pH (7.35-7.45) ABG pO2 (83-108) mmHg ABG HCO3 (21-25) mmol/L ABG Total CO2 (19-24) mmol/L ABG O2 Saturation (94-97) % Potassium (3.5-5.1) mmol/L Chloride (98-107) mmol/L BUN (9-20) mg/dL Creatinine (0.66-1.25) mg/dL Glucose (74-99) mg/dL POC Glucose (mg/dL) 120 H (75-99) mg/dL Calcium (8.4-10.2) mg/dL Microbiology - Last 24 Hours (Table) 01/24/18 09:35 Gram Stain - Final Bronchoalviolar Lavage - Right Bronchial Washings Culture - Final Assessment and Plan Assessment: Acute hypoxic respiratory failure secondary to mucous plugging -Vent management per pulmonary -Pulmonary hygiene with bronchodilators, Mucinex -Cultures from broch show normal respiratory dimas -Diuresis Left lower lobe PNA with septic shock - wean levo as able - continue with zosyn D # 4/7 - pulmonary hygeine Sigmoid diverticulitis with possible submucosal abscess versus mass -Plan is for EGD and colonoscopy once patient is more stable. D/W GI -Oncology and GI recommendations appreciated - Discussed with oncology at length. They feel that heterogeneous uptake in the lumbar spine is not consistent with metastatic disease but is more reflective of the patient's acute condition, further testing as out patient Symptomatic anemia, hypoproliferative - labs show element of chronic disease -TSH,B12, and folate normal - LDH and alk phos elevated -Follow CBC in a.m. -hematology oncology recs appreciated: work up unrevealing at this time, if anemia persists will need outpatient Bone marrow biopsy Generalized Lower extremity weakness -Likely secondary to metabolic condition -Fall precautions -PT/OT evaluation -Neurology recommendations appreciated Elevated troponin,due to demand ischemia - echo normal, no further testing at this time. Tobacco abuse - cessation - nicotine replacement ETOH abuse - CIWA protocol to utilize once extubated - thiamine and folic acid supplementation Severe protein calorie malnutrition - MVI -dietitian recs Severe Hypokalemia, resolved DVT prophylaxis: Heparin Discussed with: Patient, nursing Anticipated discharge date: 5-[address]: home with home health vs SNF A total of 35 minutes was spent on the care of this complex patient more than 50 % of the time was spent in counseling and care coordination.
[2018-01-27] MEDS ORDERED: POTASSIUM BICARBONATE/CIT AC 20 MEQ TABLET.EFF NG-TUBE SCH (14:00)
[2018-01-27 18:05] LABS: Glucose,Whole Blood 114 mg/dL (75-99)
[2018-01-27] MEDS: SODIUM CHLORIDE 0.9% 1,000 ML IV SCH (21:17)
[2018-01-28] LABS: Glucose,Whole Blood 154 mg/dL (75-99)
[2018-01-28] MEDS: PIPERACILLIN-TAZOBACTAM 3.375 GM in DEXTROSE/WATER 1 50ML.BAG IVPB SCH ×4 (00:18→23:38)
[2018-01-28] MEDS: PROPOFOL 1,000 MG in EMPTY BAG 1 BAG IV SCH (00:20)
[2018-01-28] MEDS: IPRATROPIUM-ALBUTEROL 3 ML NEB INHALATION SCH ×5 (03:55→20:15)
[2018-01-28 03:57] LABS: Anisocytosis Moderate; Basophils % (A) 1 %; Eosinophils # (A) 0.2 k/uL (0-0.7); Eosinophils % (A) 3 %; HCT 29.7 % (39.0-53.0); HGB 9.2 gm/dL (13.0-17.5); Hypochromasia Marked; Lymphocytes # (A) 0.8 k/uL (1.0-4.8); Lymphocytes % (A) 12 %; MCH 28.6 pg (25.0-35.0); MCHC 30.9 g/dL (31.0-37.0); MCV 92.6 fL (80.0-100.0); Macrocytosis Slight; Mean Platelet Volume 8.3; Microcytosis Slight; Monocytes # (A) 0.3 k/uL (0-1.0); Monocytes % (A) 5 %; Neutrophils # (A) 5.4 k/uL (1.3-7.7); Neutrophils % (A) 78 %; Platelet Count 341 k/uL (150-450); Poikilocytosis Moderate; RBC 3.21 m/uL (4.30-5.90); RDW 22.4 % (11.5-15.5); WBC 6.9 k/uL (3.8-10.6)
[2018-01-28 04:09] LABS: Anion Gap 4 mmol/L; Blood Urea Nitrogen 10 mg/dL (9-20); Calcium 6.8 mg/dL (8.4-10.2); Carbon Dioxide 31 mmol/L (22-30); Chloride 106 mmol/L (98-107); Glucose 137 mg/dL (74-99); Magnesium 1.7 mg/dL (1.6-2.3); Phosphorus 3.2 mg/dL (2.5-4.5); Potassium 3.5 mmol/L (3.5-5.1); Sodium 141 mmol/L (137-145)
[2018-01-28] MEDS ORDERED: Magnesium Replacement Protocol 1 EACH MISC MISCELLANE PRN (04:30)
[2018-01-28] MEDS ORDERED: Potassium Replacement Protocol 1 EACH MISC MISCELLANE PRN (04:30)
[2018-01-28] MEDS: MAGNESIUM SULFATE-D5W PMX 1 GM in DEXTROSE/WATER 1 100ML.BAG IVPB SCH ×2 (04:45→05:49)
[2018-01-28] MEDS: POTASSIUM BICARBONATE/CIT AC 20 MEQ TABLET.EFF NG-TUBE SCH ×2 (04:46→05:49)
[2018-01-28 06:08] LABS: Glucose,Whole Blood 160 mg/dL (75-99)
[2018-01-28 07:16] LABS: ABG Base Excess 9.5 mmol/L; ABG HCO3 33 mmol/L (21-25); ABG Oxygen Saturation 98.5 % (94-97); ABG PCO2 42 mmHg (35-45); ABG PO2 111 mmHg (83-108); ABG TCO2 34 mmol/L (19-24)
--- NOTE | 2018-01-28 08:31 | XR ---
EXAMINATION TYPE: XR chest 1V portable DATE OF EXAM: 01/28/2018 COMPARISON: 01/27/2018 HISTORY: Ventilatory dependent respiratory failure. TECHNIQUE: Single frontal view of the chest is obtained. FINDINGS: There is slight worsening of bibasilar opacities obscuring the hemidiaphragms and costophr enic angles superimposed upon COPD with pulmonary hyperinflation. Endotracheal tube and enteric tube are stable although the fenestrated portion of the enteric tube appears at the gastroesophageal junct ion. Left-sided central venous catheter terminates in the distal superior vena cava. Cardiac silhouet te appears stable. IMPRESSION: Mildly worsening bilateral pleural effusions and associated airspace disease, likely ate lectasis.
[2018-01-28] MEDS: CHLORHEXIDINE GLUCONATE 15 ML CUP MUCOUS MEM SCH (09:09)
[2018-01-28] MEDS: LEVOFLOXACIN 750MG-D5W PMX 750 MG in DEXTROSE/WATER 1 150ML.BAG IVPB SCH (09:09)
[2018-01-28] MEDS: PANTOPRAZOLE 40 MG/10 ML VIAL IV SCH (09:09)
[2018-01-28] MEDS: NICOTINE 21MG/24HR PATCH TRANSDERM SCH (09:09)
[2018-01-28] MEDS: FUROSEMIDE 10 MG/ML 4 ML VIAL IV SCH ×2 (09:09→21:52)
[2018-01-28] MEDS: guaiFENesin 600 MG TABLET.ER PO SCH ×2 (09:09→21:52)
--- NOTE | 2018-01-28 09:40 | P.PN ---
Subjective Progress Note Date: 01/28/18 Principal diagnosis: Anemia 72-year-old gentleman admitted with left lower lobe pneumonia with septic shock , severe symptomatic anemia hemoglobin of 5.5 requiring [address] abdomen and pelvis reported thickening of the sigmoid colon underlying lesion could not be excluded. Status post bronchoscopy. Patient was extubated 2 days ago but reintubated within a few hours. Presently intubated awake possible extubation today. Nursing reports no evidence of hematemesis hematochezia or melena. Hemoglobin 9.2. BM x 1 yesterday. Objective - Vital Signs Vital signs: Vital Signs Temp 98.3 F 01/28/18 04:00 Pulse 65 01/28/18 08:26 Resp 22 01/28/18 07:00 BP 87/57 01/28/18 06:30 Pulse Ox 100 01/28/18 07:00 Intake & Output 01/27/18 01/28/18 01/28/18 18:59 06:59 18:59 Intake Total 4409.058 1960.857 133 Output Total 2555 2760 70 Balance -1268.112 -1289.143 63 Weight 62 kg Intake: IV 512 581.0 26 Levofloxacin 750Mg-D5w 100 Pmx 750 mg In Dextrose/ Water 1 150ml.bag @ 100 mls/hr IVPB Q24H [facility] Rx#: [id number] Magnesium Sulfate-D5w Pmx 200 1 gm In Dextrose/Water 1 100ml.bag @ 100 mls/hr IVPB Q1H [facility] Rx#: [id number] Piperacillin-Tazobactam 3 100 75.0 .375 gm In Dextrose/Water 1 50ml.bag @ 12.5 mls/hr IVPB Q8HR [facility] Rx#: [id number] Sodium Chloride 0.9% 1, 240 240 20 000 ml @ 20 mls/hr IV . Q24H [facility] Rx#:[id number] pressure bag 72 66 6 Intake, IV Titration 107.888 115.857 Amount Norepinephrine 16 mg In 8.633 20.805 Sodium Chloride 0.9% 250 ml @ Titrate IV .Q0M [facility] Rx#:[id number] Propofol 1,000 mg In 99.255 95.052 Empty Bag 1 bag @ Titrate IV .Q0M [facility] Rx#: [id number] Tube Feeding 517 564 47 Other 150 210 60 Output: Urine 2555 2760 70 Other: Voiding Method Indwelling Catheter Indwelling Catheter # Bowel Movements 1 ABP, PAP, CO, CI - Last Documented Arterial Blood Pressure 113/63 - Exam General appearance: The patient is intubated awake. HET: Head is normocephalic and atraumatic. Pupils are equal and reactive. Oropharynx is clear without lesions. Neck: Supple without lymphadenopathy. Trachea midline. Heart: S1 S2. Regular rate and rhythm. Lungs: No crackles or wheezes are heard. Abdomen: Soft, nontender, nondistended with bowel sounds. No peritoneal signs. No palpable organomegaly or masses. Extremities: +2 bilateral edema to upper and lower extremities. Neurological: intubated - Labs CBC & Chem 7: 01/28/18 03:45 01/28/18 03:45 Labs: Abnormal Lab Results - Last 24 Hours (Table) 01/27/18 01/27/18 01/27/18 Range/Units 09:50 11:52 18:04 RBC (4.30-5.90) m/uL Hgb (13.0-17.5) gm/dL Hct (39.0-53.0) % MCHC (31.0-37.0) g/dL RDW (11.5-15.5) % Lymphocytes # (1.0-4.8) k/uL ABG pH (7.35-7.45) ABG pO2 (83-108) mmHg ABG HCO3 (21-25) mmol/L ABG Total CO2 (19-24) mmol/L ABG O2 Saturation (94-97) % Potassium 2.0 L* (3.5-5.1) mmol/L Carbon Dioxide (22-30) mmol/L Creatinine (0.66-1.25) mg/dL Glucose (74-99) mg/dL POC Glucose (mg/dL) 120 H 114 H (75-99) mg/dL Calcium (8.4-10.2) mg/dL 01/27/18 01/28/18 01/28/18 Range/Units 23:58 03:45 03:45 RBC 3.21 L (4.30-5.90) m/uL Hgb 9.2 L (13.0-17.5) gm/dL Hct 29.7 L (39.0-53.0) % MCHC 30.9 L (31.0-37.0) g/dL RDW 22.4 H (11.5-15.5) % Lymphocytes # 0.8 L (1.0-4.8) k/uL ABG pH (7.35-7.45) ABG pO2 (83-108) mmHg ABG HCO3 (21-25) mmol/L ABG Total CO2 (19-24) mmol/L ABG O2 Saturation (94-97) % Potassium (3.5-5.1) mmol/L Carbon Dioxide 31 H (22-30) mmol/L Creatinine 0.48 L (0.66-1.25) mg/dL Glucose 137 H (74-99) mg/dL POC Glucose (mg/dL) 154 H (75-99) mg/dL Calcium 6.8 L (8.4-10.2) mg/dL 01/28/18 01/28/18 Range/Units 06:04 07:15 RBC (4.30-5.90) m/uL Hgb (13.0-17.5) gm/dL Hct (39.0-53.0) % MCHC (31.0-37.0) g/dL RDW (11.5-15.5) % Lymphocytes # (1.0-4.8) k/uL ABG pH 7.50 H (7.35-7.45) ABG pO2 111 H (83-108) mmHg ABG HCO3 33 H (21-25) mmol/L ABG Total CO2 34 H (19-24) mmol/L ABG O2 Saturation 98.5 H (94-97) % Potassium (3.5-5.1) mmol/L Carbon Dioxide (22-30) mmol/L Creatinine (0.66-1.25) mg/dL Glucose (74-99) mg/dL POC Glucose (mg/dL) 160 H (75-99) mg/dL Calcium (8.4-10.2) mg/dL Assessment and Plan Assessment: Impression: 1. Acute respiratory failure secondary to severe pneumonia mucous plug presently intubated status post bronchoscopy. 2. Severe symptomatic anemia CT imaging reported thickening of the sigmoid colon and underlying mucosal lesion could not be excluded. 3. Alcohol abuse. Plan: 1. Continue symptomatic supportive measures. Case was discussed with Dr. Live we'll plan on endoscopic workup for CT findings once patient has been extubated and remains stable. We'll continue to monitor on a daily basis most likely will proceed with endoscopic exam prior to discharge. Continue to monitor CBC closely. Assessment and plan a care discussed with Dr. Marques
--- NOTE | 2018-01-28 10:54 | P.PN ---
Subjective Progress Note Date: 01/28/18 Principal diagnosis: Acute hypoxic respiratory failure secondary to left lower lobe pneumonia, left parapneumonic pleural effusion, profound anemia. And septic shock. This is a 72-year-old male patient, a chronic smoker, a chronic alcoholic, came into the hospital as the patient was becoming progressively weak to the point where he was unable to perform activities of daily today life. He came in to the emergency with generalized weakness, falling to the ground and he was unable to recover himself. Nevertheless there was no loss of consciousness or syncope. The patient in the emergency department was seen and evaluated. CAT scan of the brain was done that showed age-related atrophy and some chronic sinusitis. Chest x-ray was consistent with pulmonary granulomas consistent with old infection. The patient was found to profoundly anemic with a hemoglobin of 5.5. Troponin was minimally elevated at 0.1. The patient got transfused with packed RBC. Subsequently the patient got admitted to the medical floor and pulmonary consultation was requested knowing that the patient had a CAT scan of the chest and the findings were abnormal. Note that the patient had a full CAT scan of the chest abdomen and pelvis. CAT scan of the chest showed a limited air bronchogram involving the superior segment of the left lower lobe along with some fluid within the interlobar fissure in addition to small bibasilar pulmonary effusions. There is advanced background emphysema in addition to apical scarring and pulmonary granulomas 2 of them are seen on the right. There is also evidence of segmental compression atelectasis in lung bases bilaterally. The tracheobronchial tree was patent. Mediastinum showed some old mediastinal lymph node calcification suggestive of prior granulomatous disease. No pericardial effusion. Also, the patient showed hepatic steatosis, fatty infiltration of the liver, extensive atherosclerosis of the abdominal aorta and its branches, mild spinal canal stenosis at the level of T10-T11 and evidence of numerous sigmoid diverticulosis and questionable mild component of acute sigmoid diverticulitis and direct colonoscopic evaluation was recommended by the radiologist From the pulmonary standpoint, the patient is a chronic smoker and he has chronic exertional dyspnea and chronic congested cough. No hemoptysis. No pleurisy. No worsening shortness of breath. He can't recall a previous pneumonia back in 2016 involving the left lung base and he was hospitalized back then at [facility]. He was told that this was a severe pneumonia and he was very close to dying from this condition. He ultimately improved. Currently is no nausea or vomiting. Most of it abdominal pain. He is an alcohol drinker. He denies having to pass out from alcohol drinking. He denies having any seizure activity from alcohol drinking. He is currently on DT prophylaxis is also on nicotine patch. on 01/24/2018 the patient got transferred to the intensive care units. The patient early this morning at around 1 AM he became acutely short of breath. He became acutely hypoxic. Initially was on 2 L of oxygen by nasal cannula in progress with Dr. remigio morrison up and he was placed on the percent nonrebreather facemask. Subsequently was found to have labored breathing and rapid response team was called and the patient was placed on a BiPAP at a pressure of 12/5 cm of water with an FiO2 of 100%. Got transferred to the intensive care unit and his current pulse ox is around 91-92%. Chest x-ray shows significant abnormality and interval change compared to yesterday. There is significant amount of volume loss and interval development of atelectasis in the left lower lobe and some infiltration of the perihilar area and the left upper lobe. The patient is currently short of breath and tachypneic and in mild to moderate degree of respiratory distress even being on a BiPAP. As such have made decision to proceed with intubation and proceed with a bronchoscopic evaluation of the left lung. He may need the CAT scan of the chest repeated. He may need also to be placed on broad-spectrum antibiotics and I will restart him on a combination of Zosyn and Levaquin. His white cell count is not elevated. Is afebrile. The Benedict catheter was inserted and the urine output is diminished at this point in time. White cell count is at 6.1. Blood gases done this morning showed a pH of 7.33 with a pCO2 of 50 and pCO2 of 5700% nonrebreather facemask. He received a total of 2 units of packed RBC and hemoglobin today is 10.2. MRI of the spine was noted there is osseous structures and diffuse his energy his marrow signal and within the differential diagnoses there is a possibility of diffuse bony metastases. Patient was reevaluated today on 01/25/2018, in the ICU, on mechanical ventilation, ventilator settings are tidal volume of 400, FiO2 of 50%, assist control rate of 22, PEEP is 5. ABG is marginal with a pO2 of 78 pCO2 of 37 pH of 7.47. Patient remains on propofol is also on norepinephrine, 7 mcg/m, and propofol is 35 mcg/kg/m. Patient is arousable, follows simple instructions like wiggling toes, closing eyes, in spite of of low-dose propofol on board. Chest x-ray was reviewed, and it showed mostly a left lower lobe pneumonia left pleural effusion, and a small tiny right sided pleural effusion with atelectasis. His basic metabolic profile is normal except for low potassium of 3.1, being corrected, his CBC is relatively unremarkable. WBC count is 7.4 hemoglobin is 9.6. His hemoglobin is holding, patient received a total of 3 units of packed RBCs since admission. Patient is being followed by hematology/ oncology for what seems to be a picture of myeloproliferative disorder. Patient was reevaluated today on 01/26/2018, remains on mechanical ventilation, chest x-ray is showing worsening infiltrates in the right and left lower lobe, and bilateral pleural effusions. Patient remains on the same ventilator settings, however FiO2 was cut down to 40%, ABG showed a pO2 of 183 pCO2 of 34 pH of 7.50. Electrolytes and renal profile are normal. CBC is relatively normal, hemoglobin is holding at 8.9. Chest x-ray as noted earlier showing worsening bilateral pleural effusions and airspace disease in the lower lobes. Hence I have recommended Lasix to be given. In the meantime the patient is slowly waking up as we are slowly weaning down the propofol. Seems to follow simple instructions, but he seems to be generally weak. His norepinephrine is down to 2 mcg/m. Patient is still on antibiotics, bronchodilators, nutritional support, and I'm hoping we could consider a weaning trial on this patient today. Patient was reevaluated today on 01/27/2018, patient was extubated briefly yesterday, however shortly after I left the ICU, patient had a sudden episode of desaturation, although his initial ABG before extubation was excellent, and the patient had an excellent response to diuretics prior to extubation. Apparently the patient must have developed a mucous plug, and he was having difficulty clearing his secretions according to the nurse was taking care of the patient. Patient was immediately reintubated by ENVIRONMENTAL PROFESSIONAL, and now he is back on mechanical ventilation. Ventilator settings today are assist control rate of 22 tidal volume of 400 FiO2 of 40%, PEEP is at 5. He is on propofol at 35 mcg/kg/m, he is also on norepinephrine at 1 mcg/m. ABG this morning showed a pO2 of 138 pCO2 of 40 pH of 7.48. Potassium is low at 2.0, corrected and repeat potassium was 3.7. Calcium is 6.4, however her albumin is 2.5. Renal profile is normal. CBC showed a WBC count of 6.5 hemoglobin of 8.8, holding nicely. Chest x-ray showed bilateral effusions and associated atelectasis. Hence more Lasix will be given today, and I would maintain him on Lasix at 40 mg IV push every 12 hours. No bowel movements in the last few days, hence the patient will be started on Reglan. Patient was seen by hematology on consultation, workup for multiple myeloma has been negative, and eventually the patient will need MRI of the lumbosacral spine. Patient was examined today in the ICU on 01/28/2018, remains on mechanical ventilation, patient is awake, seems to be alert oriented, follows simple instructions, yesterday he tolerated all modes good 6 hours of pressure support and CPAP, and he seems to be tolerating pressure support and CPAP well today as I'm watching the patient in the ICU. Chest x-ray continues to show bilateral pleural effusions, I recommended a stat ultrasound of the chest, and there is good sized right-sided pleural effusion which will be drained, and I have recommended to the patient that we go ahead and do thoracentesis. Patient is agreeable, and I plan to likely extubate the patient after the thoracentesis. His ventilator settings where tidal volume of 400 assist control rate of 22 FiO2 40% PEEP of 5. ABG this morning showed a pO2 of 111 he CO2 of 42 pH of 7.50. Hemoglobin is 9.2, holding nicely. Platelets are 341. Basic metabolic profile is normal renal profile is normal. Positive Hemoccult blood noted. But again his hemoglobin is holding nicely. Chest x-ray showed bilateral pleural effusions, right more so than left. Ultrasound confirmed, however the right-sided pleural effusion seems to be much larger than the left. And I plan to do a right-sided thoracentesis today. Objective - Vital Signs Vital signs: Vital Signs Temp 98.3 F 01/28/18 04:00 Pulse 65 10/11/18 08:26 Resp 22 01/28/18 07:00 BP 87/57 01/28/18 06:30 Pulse Ox 100 01/28/18 07:00 Intake & Output 01/27/18 01/28/18 01/28/18 18:59 06:59 18:59 Intake Total 0963.943 8210.857 133 Output Total 2555 2760 70 Balance -1268.112 -1289.143 63 Weight 62 kg Intake: IV 512 581.0 26 Levofloxacin 750Mg-D5w 100 Pmx 750 mg In Dextrose/ Water 1 150ml.bag @ 100 mls/hr IVPB Q24H SANDY Rx#: [id number] Magnesium Sulfate-D5w Pmx 200 1 gm In Dextrose/Water 1 100ml.bag @ 100 mls/hr IVPB Q1H SANDY Rx#: [id number] Piperacillin-Tazobactam 3 100 75.0 .375 gm In Dextrose/Water 1 50ml.bag @ 12.5 mls/hr IVPB Q8HR SANDY Rx#: [id number] Sodium Chloride 0.9% 1, 240 240 20 000 ml @ 20 mls/hr IV . Q24H SANDY Rx#:[id number] pressure bag 72 66 6 Intake, IV Titration 107.888 115.857 Amount Norepinephrine 16 mg In 8.633 20.805 Sodium Chloride 0.9% 250 ml @ Titrate IV .Q0M SANDY Rx#:[id number] Propofol 1,000 mg In 99.255 95.052 Empty Bag 1 bag @ Titrate IV .Q0M SANDY Rx#: [id number] Tube Feeding 517 564 47 Other 150 210 60 Output: Urine 2555 2760 70 Other: Voiding Method Indwelling Catheter Indwelling Catheter # Bowel Movements 1 ABP, PAP, CO, CI - Last Documented Arterial Blood Pressure 113/63 - Exam Physical Exam: Revealed a 72-year-old white male, cachectic looking, very thin, off propofol, seems to be responsive, follows simple instructions without any difficulty. Head: Atraumatic, normocephalic. Endotracheal tube and orogastric tube are intact HEENT:[Neck is supple.] [No neck masses.] [No thyromegaly.] [No JVD.] PERRLA, EOMI, moist mucous membranes, no carotid bruits. Chest: Breath sounds are diminished bilaterally right more so than left. No rhonchi and no wheezes. Cardiac Exam: [Normal S1 and S2, no S3 gallop, no murmur.] Abdomen: [Soft, nontender, no megaly, no rebound, no guarding, normal bowel sounds.] Extremities: [No clubbing, no edema, no cyanosis.] Venodyne boots noted in both lower extremities. Patient cannot receive anticoagulation therapy at this point. Continues to have Hemoccult stools positive Neurological Exam: Arousable, follows simple instructions, Lymphatics: No lymphadenopathy. Psychiatric: Cannot be fully assessed, but the patient does follow simple instructions only. - Labs CBC & Chem 7: 01/28/18 03:45 01/28/18 03:45 Labs: Abnormal Lab Results - Last 24 Hours (Table) 01/27/18 01/27/18 01/27/18 Range/Units 11:52 18:04 23:58 RBC (4.30-5.90) m/uL Hgb (13.0-17.5) gm/dL Hct (39.0-53.0) % MCHC (31.0-37.0) g/dL RDW (11.5-15.5) % Lymphocytes # (1.0-4.8) k/uL ABG pH (7.35-7.45) ABG pO2 (83-108) mmHg ABG HCO3 (21-25) mmol/L ABG Total CO2 (19-24) mmol/L ABG O2 Saturation (94-97) % Carbon Dioxide (22-30) mmol/L Creatinine (0.66-1.25) mg/dL Glucose (74-99) mg/dL POC Glucose (mg/dL) 120 H 114 H 154 H (75-99) mg/dL Calcium (8.4-10.2) mg/dL 01/28/18 01/28/18 01/28/18 Range/Units 03:45 03:45 06:04 RBC 3.21 L (4.30-5.90) m/uL Hgb 9.2 L (13.0-17.5) gm/dL Hct 29.7 L (39.0-53.0) % MCHC 30.9 L (31.0-37.0) g/dL RDW 22.4 H (11.5-15.5) % Lymphocytes # 0.8 L (1.0-4.8) k/uL ABG pH (7.35-7.45) ABG pO2 (83-108) mmHg ABG HCO3 (21-25) mmol/L ABG Total CO2 (19-24) mmol/L ABG O2 Saturation (94-97) % Carbon Dioxide 31 H (22-30) mmol/L Creatinine 0.48 L (0.66-1.25) mg/dL Glucose 137 H (74-99) mg/dL POC Glucose (mg/dL) 160 H (75-99) mg/dL Calcium 6.8 L (8.4-10.2) mg/dL 01/28/18 Range/Units 07:15 RBC (4.30-5.90) m/uL Hgb (13.0-17.5) gm/dL Hct (39.0-53.0) % MCHC (31.0-37.0) g/dL RDW (11.5-15.5) % Lymphocytes # (1.0-4.8) k/uL ABG pH 7.50 H (7.35-7.45) ABG pO2 111 H (83-108) mmHg ABG HCO3 33 H (21-25) mmol/L ABG Total CO2 34 H (19-24) mmol/L ABG O2 Saturation 98.5 H (94-97) % Carbon Dioxide (22-30) mmol/L Creatinine (0.66-1.25) mg/dL Glucose (74-99) mg/dL POC Glucose (mg/dL) (75-99) mg/dL Calcium (8.4-10.2) mg/dL Assessment and Plan Assessment: Impression: 1 acute hypoxic respiratory failure requiring intubation and mechanical ventilation, most likely secondary to community-acquired pneumonia involving the left lower lobe and parapneumonic effusion, 2 symptomatic anemia possible myeloproliferative disorder, being addressed by hematology/oncology on the case, received a total of 3 units of packed RBCs so far. No blood transfusion was given in the last 24 hours. 3 chronic alcoholism 4 diffuse heterogeneous bone marrow signal, being addressed by hematology on the case. Workup for multiple myeloma was negative. 5 troponin leak, strongly doubt acute myocardial infarction. 6 frequent premature ventricular contractions 7 generalized weakness and debility, severe protein calorie malnutrition is suspected. 8 history of diverticulosis, presently stable 9 bilateral pleural effusions, exact etiology not clear, could be parapneumonic in nature. We will plan thoracentesis today. 10 possible sepsis and septic shock secondary to pneumonia as noted above. 11 status post extubation and reintubation on 01/26/2018. May have developed mucous plug and could not clear secretions, patient had to be reintubated shortly after he was extubated. Recommendation: Continue present supportive care measures, will continue patient on pressure support and CPAP for now, reviewed the ultrasound at bedside , I plan to do a right-sided thoracentesis, and I will likely proceed with x- ray the patient shortly after the thoracentesis. Patient will be kept in the ICU for today. Remains critically ill, and considering the patient failed extubation on the , I would be a bit more concerned that he may fail extubation again. We'll continue to follow. Critical care time is 35 minutes. Not including time for thoracentesis. Time with Patient: Greater than 30
--- NOTE | 2018-01-28 11:24 | US ---
EXAMINATION TYPE: US chest DATE OF EXAM: 01/28/2018 COMPARISON: Chest radiograph of the same date CLINICAL HISTORY: Markings for thoracentesis by pulmonary staff. TECHNIQUE: Targeted ultrasound of the posterior lower bilateral hemithoraces EXAM MEASUREMENTS: Right Pleural Effusion pocket size: 5.2 cm Right skin surface to fluid distance: 1.0 cm Left Pleural Effusion pocket size: 2.8 cm Left skin surface to fluid distance: 1.7 cm Right side marked for possible thoracentesis outside the dept. Left side not marked due to lung visualized within fluid pocket Pulmonologists are able to review the images in the patient?s EMR. IMPRESSIONS: Small right pleural effusion with associated right lung atelectasis. Trace left pleural effusion and left-sided atelectasis.
--- NOTE | 2018-01-28 11:45 | XR ---
EXAMINATION TYPE: XR chest 1V DATE OF EXAM: 01/28/2018 COMPARISON: 01/28/2018 at 6:45 AM HISTORY: Status post right thoracentesis. TECHNIQUE: Single frontal view of the chest is obtained. FINDINGS: Near complete resolution of the right-sided pleural effusion. No sizable postprocedural pn eumothorax is seen. Stable positioning of the enteric tube, endotracheal tube and left internal jugul ar central venous catheter. Trace left pleural effusion and left basal atelectasis remain. Cardiac si lhouette is stable. Pulmonary hyperinflation about of underlying COPD. IMPRESSION: Near complete resolution of the previously seen right pleural effusion status post thora centesis with trace remaining left pleural effusion and left basilar atelectasis. No sizable postproc edural pneumothorax.
[2018-01-28 12:03] LABS: Glucose,Whole Blood 99 mg/dL (75-99)
--- NOTE | 2018-01-28 12:22 | PCN ---
PROCEDURE NOTE OPERATIVE REPORT: Right-sided thoracentesis. PREOPERATIVE DIAGNOSIS: Right pleural effusion. POSTOPERATIVE DIAGNOSIS: Right pleural effusion. ANESTHESIA USED: 2 mL of 1% lidocaine. PROCEDURE: The patient was placed in a sitting upright position, the area below the right scapula which was earlier localized by ultrasound, was prepared in a sterile fashion and drapes were applied. At the area of the marking, which is basically about the 8th intercostal space and tip of the scapula, the area was locally anesthetized. A 23-gauge needle was inserted at the same site, advanced into the pleural space until fluid was localized. Then a small tiny incision was made, and a standard thoracentesis catheter and needle were inserted at the same site, advanced into the pleural space and as soon as the fluid was obtained, the needle was pulled out of the pleural space and the catheter was advanced further into the pleural space. Freely flowing fluid was removed, roughly 600 mL of slightly yellow fluid, mostly clear removed from the right pleural space. The fluid was sent for different diagnostic studies. A total of 600 mL were drained. Chest x-ray postoperatively showed no evidence of any immediate complications. MMODL / IJN: [id number] /
[2018-01-28] MEDS: THIAMINE 100 MG TAB PO SCH ×2 (13:35→18:16)
[2018-01-28] MEDS: FOLIC ACID 1 MG TAB PO SCH (13:35)
[2018-01-28] MEDS: MULTIVITAMINS, THERA 1 EACH TAB PO SCH (13:35)
--- NOTE | 2018-01-28 16:38 | P.PN ---
Subjective Progress Note Date: 01/28/18 Principal diagnosis: Acute respiratory failure Patient was seen and examined. No acute events overnight. Patient was extubated early this morning. Patient prefers not to speak at this time however is giving me a thumbs up. He shakes his head when asked if he has any complaints at this time. Objective - Vital Signs Vital signs: Vital Signs Temp 98.8 F 01/28/18 12:00 Pulse 73 01/28/18 15:32 Resp 11 L 01/28/18 13:00 BP 91/60 01/28/18 13:00 Pulse Ox 100 01/28/18 13:00 Intake & Output 01/27/18 01/28/18 01/28/18 18:59 06:59 18:59 Intake Total 5341.352 2171.857 536 Output Total 2555 2760 1270 Balance -1268.112 -1289.143 -734 Weight 62 kg 62 kg Intake: IV 512 581.0 382 Levofloxacin 750Mg-D5w 100 150 Pmx 750 mg In Dextrose/ Water 1 150ml.bag @ 100 mls/hr IVPB Q24H SANDY Rx#: [id number] Magnesium Sulfate-D5w Pmx 200 1 gm In Dextrose/Water 1 100ml.bag @ 100 mls/hr IVPB Q1H [facility]Y Rx#: [id number] Piperacillin-Tazobactam 3 100 75.0 50 .375 gm In Dextrose/Water 1 50ml.bag @ 12.5 mls/hr IVPB Q8HR S[facility]Y Rx#: [id number] Sodium Chloride 0.9% 1, 240 240 140 000 ml @ 20 mls/hr IV . Q24H SANDY Rx#:[id number] pressure bag 72 66 42 Intake, IV Titration 107.888 115.857 Amount Norepinephrine 16 mg In 8.633 20.805 Sodium Chloride 0.9% 250 ml @ Titrate IV .Q0M S[facility]Y Rx#:[id number] Propofol 1,000 mg In 99.255 95.052 Empty Bag 1 bag @ Titrate IV .Q0M SANDY Rx#: [id number] Tube Feeding 517 564 94 Other 150 210 60 Output: Urine 2555 2760 1270 Other: Voiding Method Indwelling Catheter Indwelling Catheter Indwelling Catheter # Bowel Movements 1 1 ABP, PAP, CO, CI - Last Documented Arterial Blood Pressure 120/63 - Exam General: [cachectic], [no distress], [appears at stated age] Derm: [warm], [dry] Head: [atraumatic], [normocephalic], [symmetric] Eyes: [EOMI], [no lid lag], [anicteric sclera] Mouth: [no lip lesion], [mucus membranes moist] Cardiovascular: [S1S2 reg], [no murmur], [positive posterior tibial pulse bilateral], Lungs: [coarse breath sounds bilateral], [no rhonchi, no rales] , [no accessory muscle use] Abdominal: [soft], [ nontender to palpation], [no guarding], [no appreciable organomegaly] Ext: [no gross muscle atrophy], [no edema], [no contractures] - Labs CBC & Chem 7: 01/28/18 03:45 01/28/18 03:45 Labs: Abnormal Lab Results - Last 24 Hours (Table) 01/27/18 01/27/18 01/28/18 Range/Units 18:04 23:58 03:45 RBC 3.21 L (4.30-5.90) m/uL Hgb 9.2 L (13.0-17.5) gm/dL Hct 29.7 L (39.0-53.0) % MCHC 30.9 L (31.0-37.0) g/dL RDW 22.4 H (11.5-15.5) % Lymphocytes # 0.8 L (1.0-4.8) k/uL ABG pH (7.35-7.45) ABG pO2 (83-108) mmHg ABG HCO3 (21-25) mmol/L ABG Total CO2 (19-24) mmol/L ABG O2 Saturation (94-97) % Carbon Dioxide (22-30) mmol/L Creatinine (0.66-1.25) mg/dL Glucose (74-99) mg/dL POC Glucose (mg/dL) 114 H 154 H (75-99) mg/dL Calcium (8.4-10.2) mg/dL 01/28/18 01/28/18 01/28/18 Range/Units 03:45 06:04 07:15 RBC (4.30-5.90) m/uL Hgb (13.0-17.5) gm/dL Hct (39.0-53.0) % MCHC (31.0-37.0) g/dL RDW (11.5-15.5) % Lymphocytes # (1.0-4.8) k/uL ABG pH 7.50 H (7.35-7.45) ABG pO2 111 H (83-108) mmHg ABG HCO3 33 H (21-25) mmol/L ABG Total CO2 34 H (19-24) mmol/L ABG O2 Saturation 98.5 H (94-97) % Carbon Dioxide 31 H (22-30) mmol/L Creatinine 0.48 L (0.66-1.25) mg/dL Glucose 137 H (74-99) mg/dL POC Glucose (mg/dL) 160 H (75-99) mg/dL Calcium 6.8 L (8.4-10.2) mg/dL Assessment and Plan Assessment: Assessment and Plan 1. Acute respiratory failure with hypoxia: Thought to be secondary to mucous plugging. CXR shows near complete resolution of the R pleural effusion. Most recent ABG shows pH 7.50 pCO2 42 and HCO3 31 indicating primary metabolic alkalosis with respiratory alkalosis. s/p thoracentesis 01/28/2018. BAL Cx negative. Continue Lasix 40 mg IV BID, DuoNeb scheduled and PRN. FU Pleural Cx 2. LLL Pneumonia: Patient is afebrile with no leukocytosis. Previous CXR with concerns of LLL PNA. BAL Cx negative. Continue Levofloxacin 750 mg IV QD, Zosyn 3.375 mg IV TID. Continue DuoNeb. Mucinex 600 mg PO BID. Incentive spirometry. HOB elevation. FU Pulmonology, Pleural Cx 3. Sigmoid diverticulitis: With possible submucosal abscess vs mass. Given L spine MRI and severe anemia, there is concern for a GI cancer. Continue Zosyn and Levoloxacin IV. Gastroenterology on board - plans for EGD and C-scope when able. FU GI 4. Symptomatic anemia: Hg 9.2 Hct 29.7 MCV 92.6. He is s/p 3 units PRBC. FOBT + . Iron studies are consistent with anemia of chronic disease. TSH, Folate and B12 are within normal limits. LDH elevated, indicating hemolysis. 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 Patient is pending EGD and C-scope. Daily CBC. FU Hematology, outPT BM Bx if workup unrevealing. 5. 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 Neurology consulted - weakness thought to be due to malnutrition, hypoK and severe anemia. CPK within normal limits. Fall precautions. FU Neurology, PT/OT 6. Troponemia: Trop 0.14 x 2, 0.10, with EKG showing SR with PVC. Echocardiogram shows EF of 55-60%. No further testing at this time. 7. Polysubstance abuse: EtOH and tobacco. Continue MVI 1 tab PO QD, Folic acid 1 mg PO QD, Thiamine 100 mg PO BID. CIWA protocol. Ativan IV PRN for WD. Nicotine patch. 8. Protein calorie malnutrition: BMI 19.6. Advance diet to Regular. FU Dietitian 9. DVT/GI Prophylaxis: Protonix 40 mg IV QD. Patient extubated. Being treated for PNA and diverticulitis. Will need EGD and C -scope in the future. Pending clinical improvement. Pleural tap today, will FU cultures.
[2018-01-28 19:22] LABS: Appearance,BF Hazy; Nucleated Cells, Body Fluid 55 /uL; RBC, Body Fluid 50 /uL
[2018-01-28 19:23] LABS: Mononuclear WBC,Body Fluid 29 %; Polynuclear WBC,Body Fluid 69 %; Total Cells Counted,Body Fluid 100
[2018-01-28 21:11] LABS: Anion Gap 5 mmol/L; Blood Urea Nitrogen 10 mg/dL (9-20); Calcium 7.6 mg/dL (8.4-10.2); Carbon Dioxide 28 mmol/L (22-30); Chloride 104 mmol/L (98-107); Glucose 91 mg/dL (74-99); Sodium 137 mmol/L (137-145)
[2018-01-28] MEDS ORDERED: METOPROLOL TARTRATE 25 MG TAB PO SCH (23:45)
[2018-01-28 23:55] LABS: Glucose,Whole Blood 91 mg/dL (75-99)
[2018-01-29] MEDS: IPRATROPIUM-ALBUTEROL 3 ML NEB INHALATION SCH ×7 (00:07→19:21)
[2018-01-29] MEDS: SODIUM CHLORIDE 0.9% 1,000 ML IV SCH (00:19)
[2018-01-29 02:29] LABS: Total Protein, Body Fluid 1160 mg/dL
[2018-01-29] MEDS: NOREPINEPHRINE 16 MG in SODIUM CHLORIDE 0.9% 250 ML IV SCH (03:27)
[2018-01-29 04:35] LABS: Anisocytosis Moderate; Basophils % (A) 0 %; Eosinophils % (A) 0 %; HCT 29.8 % (39.0-53.0); HGB 9.4 gm/dL (13.0-17.5); Hypochromasia Moderate; Lymphocytes # (A) 0.5 k/uL (1.0-4.8); Lymphocytes % (A) 4 %; MCHC 31.6 g/dL (31.0-37.0); MCV 91.8 fL (80.0-100.0); Macrocytosis Slight; Mean Platelet Volume 8.2; Microcytosis Slight; Monocytes # (A) 0.5 k/uL (0-1.0); Monocytes % (A) 4 %; Neutrophils # (A) 11.9 k/uL (1.3-7.7); Neutrophils % (A) 91 %; Platelet Count 392 k/uL (150-450); Poikilocytosis Slight; RBC 3.25 m/uL (4.30-5.90); RDW 22.4 % (11.5-15.5)
[2018-01-29 04:50] LABS: Anion Gap 10 mmol/L; Blood Urea Nitrogen 10 mg/dL (9-20); Calcium 7.9 mg/dL (8.4-10.2); Carbon Dioxide 27 mmol/L (22-30); Chloride 100 mmol/L (98-107); Glucose 89 mg/dL (74-99); Magnesium 1.9 mg/dL (1.6-2.3); Phosphorus 3.4 mg/dL (2.5-4.5); Potassium 3.6 mmol/L (3.5-5.1); Sodium 137 mmol/L (137-145)
[2018-01-29] MEDS ORDERED: Magnesium Replacement Protocol 1 EACH MISC MISCELLANE PRN ×2 (05:00→05:10)
[2018-01-29] MEDS ORDERED: Potassium Replacement Protocol 1 EACH MISC MISCELLANE PRN (05:00)
[2018-01-29] MEDS: POTASSIUM CHLORIDE 10 MEQ in WATER FOR INJECTION 1 100ML.BAG IVPB SCH ×2 (06:00→07:15)
[2018-01-29] MEDS: MAGNESIUM SULFATE-D5W PMX 1 GM in DEXTROSE/WATER 1 100ML.BAG IVPB SCH ×2 (06:02→07:15)
[2018-01-29 06:41] LABS: Glucose,Whole Blood 107 mg/dL (75-99)
--- NOTE | 2018-01-29 07:34 | XR ---
EXAMINATION TYPE: XR chest 1V portable DATE OF EXAM: 01/29/2018 CLINICAL HISTORY: Difficulty breathing progress study. TECHNIQUE: Single AP portable semiupright view of the chest is obtained. COMPARISON: Chest x-ray from one day earlier and older studies. FINDINGS: There is interval removal of endotracheal and orogastric tubes. There is stable left inter nal jugular central venous catheter. There is background chronic emphysematous change with left basil ar opacity remaining present. There is stable tiny right pleural effusion. No sizable pneumothorax is seen bilaterally. Cardiac silhouette size is stable and within normal limits. Osseous structures rem ain intact. Calcified nodules or granulomas right lower lung are redemonstrated. IMPRESSION: Interval extubation. There is persistent chronic emphysematous change with tiny right ple ural effusion and left basilar infiltrate and/or atelectasis with suspected associated small left ple ural effusion.
[2018-01-29] MEDS: PIPERACILLIN-TAZOBACTAM 3.375 GM in DEXTROSE/WATER 1 50ML.BAG IVPB SCH ×3 (08:41→23:15)
[2018-01-29] MEDS: PANTOPRAZOLE 40 MG/10 ML VIAL IV SCH (09:52)
[2018-01-29] MEDS: guaiFENesin 600 MG TABLET.ER PO SCH ×2 (09:52→20:41)
[2018-01-29] MEDS: NICOTINE 21MG/24HR PATCH TRANSDERM SCH (09:52)
[2018-01-29] MEDS: FUROSEMIDE 10 MG/ML 4 ML VIAL IV SCH ×2 (09:52→20:41)
[2018-01-29] MEDS: LEVOFLOXACIN 750MG-D5W PMX 750 MG in DEXTROSE/WATER 1 150ML.BAG IVPB SCH (09:53)
--- NOTE | 2018-01-29 10:22 | P.PN ---
Subjective Progress Note Date: 01/29/18 Principal diagnosis: Acute hypoxic respiratory failure secondary to left lower lobe pneumonia, left parapneumonic pleural effusion, profound anemia. And septic shock. This is a 72-year-old male patient, a chronic smoker, a chronic alcoholic, came into the hospital as the patient was becoming progressively weak to the point where he was unable to perform activities of daily today life. He came in to the emergency with generalized weakness, falling to the ground and he was unable to recover himself. Nevertheless there was no loss of consciousness or syncope. The patient in the emergency department was seen and evaluated. CAT scan of the brain was done that showed age-related atrophy and some chronic sinusitis. Chest x-ray was consistent with pulmonary granulomas consistent with old infection. The patient was found to profoundly anemic with a hemoglobin of 5.5. Troponin was minimally elevated at 0.1. The patient got transfused with packed RBC. Subsequently the patient got admitted to the medical floor and pulmonary consultation was requested knowing that the patient had a CAT scan of the chest and the findings were abnormal. Note that the patient had a full CAT scan of the chest abdomen and pelvis. CAT scan of the chest showed a limited air bronchogram involving the superior segment of the left lower lobe along with some fluid within the interlobar fissure in addition to small bibasilar pulmonary effusions. There is advanced background emphysema in addition to apical scarring and pulmonary granulomas 2 of them are seen on the right. There is also evidence of segmental compression atelectasis in lung bases bilaterally. The tracheobronchial tree was patent. Mediastinum showed some old mediastinal lymph node calcification suggestive of prior granulomatous disease. No pericardial effusion. Also, the patient showed hepatic steatosis, fatty infiltration of the liver, extensive atherosclerosis of the abdominal aorta and its branches, mild spinal canal stenosis at the level of T10-T11 and evidence of numerous sigmoid diverticulosis and questionable mild component of acute sigmoid diverticulitis and direct colonoscopic evaluation was recommended by the radiologist From the pulmonary standpoint, the patient is a chronic smoker and he has chronic exertional dyspnea and chronic congested cough. No hemoptysis. No pleurisy. No worsening shortness of breath. He can't recall a previous pneumonia back in 2016 involving the left lung base and he was hospitalized back then at [facility]. He was told that this was a severe pneumonia and he was very close to dying from this condition. He ultimately improved. Currently is no nausea or vomiting. Most of it abdominal pain. He is an alcohol drinker. He denies having to pass out from alcohol drinking. He denies having any seizure activity from alcohol drinking. He is currently on DT prophylaxis is also on nicotine patch. on 01/24/2018 the patient got transferred to the intensive care units. The patient early this morning at around 1 AM he became acutely short of breath. He became acutely hypoxic. Initially was on 2 L of oxygen by nasal cannula in progress with Dr. remigio morrison up and he was placed on the percent nonrebreather facemask. Subsequently was found to have labored breathing and rapid response team was called and the patient was placed on a BiPAP at a pressure of 12/5 cm of water with an FiO2 of 100%. Got transferred to the intensive care unit and his current pulse ox is around 91-92%. Chest x-ray shows significant abnormality and interval change compared to yesterday. There is significant amount of volume loss and interval development of atelectasis in the left lower lobe and some infiltration of the perihilar area and the left upper lobe. The patient is currently short of breath and tachypneic and in mild to moderate degree of respiratory distress even being on a BiPAP. As such have made decision to proceed with intubation and proceed with a bronchoscopic evaluation of the left lung. He may need the CAT scan of the chest repeated. He may need also to be placed on broad-spectrum antibiotics and I will restart him on a combination of Zosyn and Levaquin. His white cell count is not elevated. Is afebrile. The Benedict catheter was inserted and the urine output is diminished at this point in time. White cell count is at 6.1. Blood gases done this morning showed a pH of 7.33 with a pCO2 of 50 and pCO2 of 5700% nonrebreather facemask. He received a total of 2 units of packed RBC and hemoglobin today is 10.2. MRI of the spine was noted there is osseous structures and diffuse his energy his marrow signal and within the differential diagnoses there is a possibility of diffuse bony metastases. Patient was reevaluated today on 01/25/2018, in the ICU, on mechanical ventilation, ventilator settings are tidal volume of 400, FiO2 of 50%, assist control rate of 22, PEEP is 5. ABG is marginal with a pO2 of 78 pCO2 of 37 pH of 7.47. Patient remains on propofol is also on norepinephrine, 7 mcg/m, and propofol is 35 mcg/kg/m. Patient is arousable, follows simple instructions like wiggling toes, closing eyes, in spite of of low-dose propofol on board. Chest x-ray was reviewed, and it showed mostly a left lower lobe pneumonia left pleural effusion, and a small tiny right sided pleural effusion with atelectasis. His basic metabolic profile is normal except for low potassium of 3.1, being corrected, his CBC is relatively unremarkable. WBC count is 7.4 hemoglobin is 9.6. His hemoglobin is holding, patient received a total of 3 units of packed RBCs since admission. Patient is being followed by hematology/ oncology for what seems to be a picture of myeloproliferative disorder. Patient was reevaluated today on 01/26/2018, remains on mechanical ventilation, chest x-ray is showing worsening infiltrates in the right and left lower lobe, and bilateral pleural effusions. Patient remains on the same ventilator settings, however FiO2 was cut down to 40%, ABG showed a pO2 of 183 pCO2 of 34 pH of 7.50. Electrolytes and renal profile are normal. CBC is relatively normal, hemoglobin is holding at 8.9. Chest x-ray as noted earlier showing worsening bilateral pleural effusions and airspace disease in the lower lobes. Hence I have recommended Lasix to be given. In the meantime the patient is slowly waking up as we are slowly weaning down the propofol. Seems to follow simple instructions, but he seems to be generally weak. His norepinephrine is down to 2 mcg/m. Patient is still on antibiotics, bronchodilators, nutritional support, and I'm hoping we could consider a weaning trial on this patient today. Patient was reevaluated today on 01/27/2018, patient was extubated briefly yesterday, however shortly after I left the ICU, patient had a sudden episode of desaturation, although his initial ABG before extubation was excellent, and the patient had an excellent response to diuretics prior to extubation. Apparently the patient must have developed a mucous plug, and he was having difficulty clearing his secretions according to the nurse was taking care of the patient. Patient was immediately reintubated by BUSINESS DEVELOPMENT ASSISTANT, and now he is back on mechanical ventilation. Ventilator settings today are assist control rate of 22 tidal volume of 400 FiO2 of 40%, PEEP is at 5. He is on propofol at 35 mcg/kg/m, he is also on norepinephrine at 1 mcg/m. ABG this morning showed a pO2 of 138 pCO2 of 40 pH of 7.48. Potassium is low at 2.0, corrected and repeat potassium was 3.7. Calcium is 6.4, however her albumin is 2.5. Renal profile is normal. CBC showed a WBC count of 6.5 hemoglobin of 8.8, holding nicely. Chest x-ray showed bilateral effusions and associated atelectasis. Hence more Lasix will be given today, and I would maintain him on Lasix at 40 mg IV push every 12 hours. No bowel movements in the last few days, hence the patient will be started on Reglan. Patient was seen by hematology on consultation, workup for multiple myeloma has been negative, and eventually the patient will need MRI of the lumbosacral spine. Patient was examined today in the ICU on 01/28/2018, remains on mechanical ventilation, patient is awake, seems to be alert oriented, follows simple instructions, yesterday he tolerated all modes good 6 hours of pressure support and CPAP, and he seems to be tolerating pressure support and CPAP well today as I'm watching the patient in the ICU. Chest x-ray continues to show bilateral pleural effusions, I recommended a stat ultrasound of the chest, and there is good sized right-sided pleural effusion which will be drained, and I have recommended to the patient that we go ahead and do thoracentesis. Patient is agreeable, and I plan to likely extubate the patient after the thoracentesis. His ventilator settings where tidal volume of 400 assist control rate of 22 FiO2 40% PEEP of 5. ABG this morning showed a pO2 of 111 he CO2 of 42 pH of 7.50. Hemoglobin is 9.2, holding nicely. Platelets are 341. Basic metabolic profile is normal renal profile is normal. Positive Hemoccult blood noted. But again his hemoglobin is holding nicely. Chest x-ray showed bilateral pleural effusions, right more so than left. Ultrasound confirmed, however the right-sided pleural effusion seems to be much larger than the left. And I plan to do a right-sided thoracentesis today. Reevaluated today on 01/29/2018, patient underwent a right-sided thoracentesis yesterday, followed by extubation from a pressure support mode of mechanical ventilation. Patient tolerated the extubation quite well. Continues to tolerate extubation today, his chest x-ray is significantly improved. Patient is feeling better, relatively asymptomatic. However he continues to have intermittently low blood pressure and he has been intermittently on a low dose of norepinephrine anywhere between 1-2 mcg/m. I will give him a fluid bolus today, and hopefully could get him off norepinephrine and possibly transfer him out of the ICU. Patient is feeling better overall, and he is in no form of respiratory distress at this point. CBC showed hemoglobin stable at 9.4. His electrolytes are normal renal profile is normal bicarb is 27. Potassium is 3.6. Continues to have some left lower lobe atelectasis and possible infiltrate in the left lower lobe with a small tiny left pleural effusion evaluated yesterday by ultrasound, and was not felt to be large enough to perform thoracentesis. Objective - Vital Signs Vital signs: Vital Signs Temp 98.2 F 01/29/18 00:00 Pulse 82 01/29/18 07:43 Resp 18 01/29/18 07:33 BP 91/55 01/29/18 07:00 Pulse Ox 100 01/29/18 07:00 Intake & Output 01/28/18 01/29/18 01/29/18 18:59 06:59 18:59 Intake Total 663 587.034 203 Output Total 1970 2370 Balance -1307 -1782.966 203 Weight 62 kg 58 kg Intake: IV 509 466.0 203 Levofloxacin 750Mg-D5w 150 Pmx 750 mg In Dextrose/ Water 1 150ml.bag @ 100 mls/hr IVPB Q24H SANDY Rx#: [id number] Magnesium Sulfate-D5w Pmx 100 100 1 gm In Dextrose/Water 1 100ml.bag @ 100 mls/hr IVPB Q1H S[facility]Y Rx#: [id number] Piperacillin-Tazobactam 3 70 50.0 .375 gm In Dextrose/Water 1 50ml.bag @ 12.5 mls/hr IVPB Q8HR S[facility]Y Rx#: [id number] Potassium Chloride 10 meq 100 100 In Water For Injection 1 100ml.bag @ 100 mls/hr IVPB Q1H S[facility]Y Rx#: [id number] Sodium Chloride 0.9% 1, 220 180 0 000 ml @ 20 mls/hr IV . Q24H SANDY Rx#:[id number] pressure bag 69 36 3 Intake, IV Titration 121.034 Amount Norepinephrine 16 mg In 21.034 Sodium Chloride 0.9% 250 ml @ Titrate IV .Q0M S[facility]Y Rx#:[id number] Propofol 1,000 mg In 100 Empty Bag 1 bag @ Titrate IV .Q0M SANDY Rx#: [id number] Tube Feeding 94 Other 60 Output: Urine 1970 2370 Other: Voiding Method Indwelling Catheter Indwelling Catheter # Bowel Movements 1 2 ABP, PAP, CO, CI - Last Documented Arterial Blood Pressure 106/55 - Exam Physical Exam: Revealed a 72-year-old white male, on nasal cannula, in no distress. Head: Atraumatic, normocephalic. HEENT:[Neck is supple.] [No neck masses.] [No thyromegaly.] [No JVD.] PERRLA, EOMI, slightly dry mucous membranes.. Chest: Good breath sound bilaterally, no crackles or rhonchi or wheezes symmetrical chest expansion, no chest wall tenderness. Cardiac Exam: [Normal S1 and S2, no S3 gallop, no murmur.] Abdomen: [Soft, nontender, no megaly, no rebound, no guarding, normal bowel sounds.] Extremities: [No clubbing, no edema, no cyanosis.] Venodyne boots noted in both lower extremities. Neurological Exam: Generally weak otherwise no gross focal neurologic deficit Lymphatics: No lymphadenopathy. Psychiatric: Normal mood, blunt affect, intact mental status examination. - Labs CBC & Chem 7: 01/29/18 04:25 01/29/18 04:25 Labs: Abnormal Lab Results - Last 24 Hours (Table) 01/28/18 01/29/18 01/29/18 Range/Units 20:45 04:25 04:25 WBC 13.0 H (3.8-10.6) k/uL RBC 3.25 L (4.30-5.90) m/uL Hgb 9.4 L (13.0-17.5) gm/dL Hct 29.8 L (39.0-53.0) % RDW 22.4 H (11.5-15.5) % Neutrophils # 11.9 H (1.3-7.7) k/uL Lymphocytes # 0.5 L (1.0-4.8) k/uL Creatinine 0.43 L 0.49 L (0.66-1.25) mg/dL POC Glucose (mg/dL) (75-99) mg/dL Calcium 7.6 L 7.9 L (8.4-10.2) mg/dL 01/29/18 Range/Units 06:40 WBC (3.8-10.6) k/uL RBC (4.30-5.90) m/uL Hgb (13.0-17.5) gm/dL Hct (39.0-53.0) % RDW (11.5-15.5) % Neutrophils # (1.3-7.7) k/uL Lymphocytes # (1.0-4.8) k/uL Creatinine (0.66-1.25) mg/dL POC Glucose (mg/dL) 107 H (75-99) mg/dL Calcium (8.4-10.2) mg/dL Microbiology - Last 24 Hours (Table) 01/28/18 11:20 Gram Stain - Preliminary Pleural Fluid Body Fluid Culture - Preliminary Assessment and Plan Assessment: Impression: 1 acute hypoxic respiratory failure requiring intubation and mechanical ventilation, most likely secondary to community-acquired pneumonia involving the left lower lobe and parapneumonic effusion, extubated on 01/28/2018, tolerated the extubation well. This was done right after a right-sided thoracentesis was done. 2 symptomatic anemia possible myeloproliferative disorder, being addressed by hematology/oncology on the case, received a total of 3 units of packed RBCs so far. No blood transfusion was given in the last 24 hours. 3 chronic alcoholism 4 diffuse heterogeneous bone marrow signal, being addressed by hematology on the case. Workup for multiple myeloma was negative. 5 troponin leak, strongly doubt acute myocardial infarction. 6 frequent premature ventricular contractions 7 generalized weakness and debility, severe protein calorie malnutrition is suspected. Continue fall precautions 8 history of diverticulosis, there continues to concern about GI carcinoma, patient will eventually require further GI workup. 9 bilateral pleural effusions, exact etiology not clear, could be parapneumonic in nature. Thoracentesis was done on 01/28/2018 results of the pleural effusion are pending. 10 possible sepsis and septic shock secondary to pneumonia as noted above. 11 status post extubation and reintubation on 01/26/2018. May have developed mucous plug and could not clear secretions, patient had to be reintubated shortly after he was extubated. 12 status post thoracentesis followed by extubation on 01/28/2018. Recommendation: Continue present supportive care measures, extubated on 2017, tolerated the extubation well, however the patient remains in the ICU mostly because of intermittently lab I'll blood pressure, at times requiring very low dose of norepinephrine, hence I will try a fluid bolus of 250 mL, and possibly discontinue norepinephrine. If that could be done today, then we could transfer the patient out of the ICU to a monitor bed on . Time with Patient: Less than 30
--- NOTE | 2018-01-29 11:17 | P.PN ---
Subjective Progress Note Date: 01/29/18 Principal diagnosis: Anemia 72-year-old gentleman admitted with left lower lobe pneumonia with septic shock , severe symptomatic anemia hemoglobin of 5.5 requiring [address] abdomen and pelvis reported thickening of the sigmoid colon underlying lesion could not be excluded. Status post bronchoscopy. Thoracentesis yesterday 600 mL removed. Patient was extubated yesterday. Nursing reports no evidence of hematemesis hematochezia or melena. Hemoglobin 9.4. Objective - Vital Signs Vital signs: Vital Signs Temp 98.2 F 01/29/18 00:00 Pulse 84 01/29/18 11:09 Resp 16 01/29/18 11:09 BP 91/55 01/29/18 07:00 Pulse Ox 100 01/29/18 07:00 Intake & Output 01/28/18 01/29/18 01/29/18 18:59 06:59 18:59 Intake Total 663 587.034 203 Output Total 1970 2370 Balance -1307 -6252.966 203 Weight 62 kg 58 kg Intake: IV 509 466.0 203 Levofloxacin 750Mg-D5w 150 Pmx 750 mg In Dextrose/ Water 1 150ml.bag @ 100 mls/hr IVPB Q24H [facility] Rx#: [id number] Magnesium Sulfate-D5w Pmx 100 100 1 gm In Dextrose/Water 1 100ml.bag @ 100 mls/hr IVPB Q1H [facility]Y Rx#: [id number] Piperacillin-Tazobactam 3 70 50.0 .375 gm In Dextrose/Water 1 50ml.bag @ 12.5 mls/hr IVPB Q8HR [facility]Y Rx#: [id number] Potassium Chloride 10 meq 100 100 In Water For Injection 1 100ml.bag @ 100 mls/hr IVPB Q1H [facility] Rx#: [id number] Sodium Chloride 0.9% 1, 220 180 0 000 ml @ 20 mls/hr IV . Q24H S[facility]Y Rx#:[id number] pressure bag 69 36 3 Intake, IV Titration 121.034 Amount Norepinephrine 16 mg In 21.034 Sodium Chloride 0.9% 250 ml @ Titrate IV .Q0M [facility] Rx#:[id number] Propofol 1,000 mg In 100 Empty Bag 1 bag @ Titrate IV .Q0M S[facility]Y Rx#: [id number] Tube Feeding 94 Other 60 Output: Urine 1970 2370 Other: Voiding Method Indwelling Catheter Indwelling Catheter # Bowel Movements 1 2 ABP, PAP, CO, CI - Last Documented Arterial Blood Pressure 106/55 - Exam General appearance: The patient is awake alert in no acute distress. HET: Head is normocephalic and atraumatic. Pupils are equal and reactive. Oropharynx is clear without lesions. Neck: Supple without lymphadenopathy. Trachea midline. Heart: S1 S2. Regular rate and rhythm. Lungs: No crackles or wheezes are heard. Abdomen: Soft, nontender, nondistended with bowel sounds. No peritoneal signs. No palpable organomegaly or masses. - Labs CBC & Chem 7: 01/29/18 04:25 01/29/18 04:25 Labs: Abnormal Lab Results - Last 24 Hours (Table) 01/28/18 01/29/18 01/29/18 Range/Units 20:45 04:25 04:25 WBC 13.0 H (3.8-10.6) k/uL RBC 3.25 L (4.30-5.90) m/uL Hgb 9.4 L (13.0-17.5) gm/dL Hct 29.8 L (39.0-53.0) % RDW 22.4 H (11.5-15.5) % Neutrophils # 11.9 H (1.3-7.7) k/uL Lymphocytes # 0.5 L (1.0-4.8) k/uL Creatinine 0.43 L 0.49 L (0.66-1.25) mg/dL POC Glucose (mg/dL) (75-99) mg/dL Calcium 7.6 L 7.9 L (8.4-10.2) mg/dL 01/29/18 Range/Units 06:40 WBC (3.8-10.6) k/uL RBC (4.30-5.90) m/uL Hgb (13.0-17.5) gm/dL Hct (39.0-53.0) % RDW (11.5-15.5) % Neutrophils # (1.3-7.7) k/uL Lymphocytes # (1.0-4.8) k/uL Creatinine (0.66-1.25) mg/dL POC Glucose (mg/dL) 107 H (75-99) mg/dL Calcium (8.4-10.2) mg/dL Microbiology - Last 24 Hours (Table) 01/28/18 11:20 Gram Stain - Preliminary Pleural Fluid Body Fluid Culture - Preliminary Assessment and Plan Assessment: Impression: 1. Acute respiratory failure secondary to severe pneumonia mucous plug status post extubation and bronchoscopy. Thoracentesis yesterday 600 mL removed. 2. Severe symptomatic anemia CT imaging reported thickening of the sigmoid colon and underlying mucosal lesion could not be excluded. Presently no active GI bleeding. 3. Alcohol abuse. Plan: 1. Continue symptomatic supportive measures. Case was discussed with Dr. Live earlier in the week we'll plan on endoscopic workup for CT findings once patient demonstrates medical stability. We'll continue to monitor on a daily basis most likely will proceed with endoscopic exam prior to discharge. Low evaluated over the weekend. Continue to monitor CBC closely. Assessment and plan of care discussed with Dr. Noriega
[2018-01-29 11:58] LABS: Glucose,Whole Blood 182 mg/dL (75-99)
[2018-01-29] MEDS: THIAMINE 100 MG TAB PO SCH ×2 (14:08→16:53)
[2018-01-29] MEDS: FOLIC ACID 1 MG TAB PO SCH (14:09)
[2018-01-29] MEDS: MULTIVITAMINS, THERA 1 EACH TAB PO SCH (14:09)
--- NOTE | 2018-01-29 14:36 | P.PN ---
Subjective Progress Note Date: 01/29/18 Principal diagnosis: Acute respiratory failure Patient was seen and examined. No acute events overnight. He should with no complaints today. Extubated yesterday. Attempted to wean down pressors this morning, patient became hypotensive in the 70s systolic, Levophed started back at 2. Objective - Vital Signs Vital signs: Vital Signs Temp 99.7 F H 01/29/18 08:00 Pulse 84 01/29/18 13:32 Resp 16 01/29/18 11:09 BP 75/42 01/29/18 13:32 Pulse Ox 100 01/29/18 13:32 Intake & Output 01/28/18 01/29/18 01/29/18 18:59 06:59 18:59 Intake Total 663 587.034 625.918 Output Total 1969 2370 225 Balance -1307 -1782.966 400.918 Weight 62 kg 58 kg Intake: IV 509 466.0 607 Bolus 250 Levofloxacin 750Mg-D5w 150 Pmx 750 mg In Dextrose/ Water 1 150ml.bag @ 100 mls/hr IVPB Q24H [facility] Rx#: [id number] Magnesium Sulfate-D5w Pmx 100 100 1 gm In Dextrose/Water 1 100ml.bag @ 100 mls/hr IVPB Q1H [facility] Rx#: [id number] Piperacillin-Tazobactam 3 70 50.0 50 .375 gm In Dextrose/Water 1 50ml.bag @ 12.5 mls/hr IVPB Q8HR [facility] Rx#: [id number] Potassium Chloride 10 meq 100 100 In Water For Injection 1 100ml.bag @ 100 mls/hr IVPB Q1H [facility] Rx#: [id number] Sodium Chloride 0.9% 1, 220 180 80 000 ml @ 20 mls/hr IV . Q24H [facility] Rx#:[id number] pressure bag 69 36 27 Intake, IV Titration 121.034 18.918 Amount Norepinephrine 16 mg In 21.034 18.918 Sodium Chloride 0.9% 250 ml @ Titrate IV .Q0M [facility] Rx#:[id number] Propofol 1,000 mg In 100 Empty Bag 1 bag @ Titrate IV .Q0M [facility] Rx#: [id number] Tube Feeding 94 Other 60 Output: Urine 19690 225 Other: Voiding Method Indwelling Catheter Indwelling Catheter Indwelling Catheter # Bowel Movements 1 2 ABP, PAP, CO, CI - Last Documented Arterial Blood Pressure 91/52 - Exam General: [cachectic], [no distress], [appears at stated age] Derm: [warm], [dry] Head: [atraumatic], [normocephalic], [symmetric] Eyes: [EOMI], [no lid lag], [anicteric sclera] Mouth: [no lip lesion], [mucus membranes moist] Cardiovascular: [S1S2 reg], [no murmur], [positive posterior tibial pulse bilateral], Lungs: [coarse breath sounds bilateral], [no rhonchi, no rales] , [no accessory muscle use] Abdominal: [soft], [ nontender to palpation], [no guarding], [no appreciable organomegaly] Ext: [no gross muscle atrophy], [no edema], [no contractures] - Labs CBC & Chem 7: 01/29/18 04:25 01/29/18 04:25 Labs: Abnormal Lab Results - Last 24 Hours (Table) 01/28/18 01/29/18 01/29/18 Range/Units 20:45 04:25 04:25 WBC 13.0 H (3.8-10.6) k/uL RBC 3.25 L (4.30-5.90) m/uL Hgb 9.4 L (13.0-17.5) gm/dL Hct 29.8 L (39.0-53.0) % RDW 22.4 H (11.5-15.5) % Neutrophils # 11.9 H (1.3-7.7) k/uL Lymphocytes # 0.5 L (1.0-4.8) k/uL Creatinine 0.43 L 0.49 L (0.66-1.25) mg/dL POC Glucose (mg/dL) (75-99) mg/dL Calcium 7.6 L 7.9 L (8.4-10.2) mg/dL 01/29/18 01/29/18 Range/Units 06:40 11:53 WBC (3.8-10.6) k/uL RBC (4.30-5.90) m/uL Hgb (13.0-17.5) gm/dL Hct (39.0-53.0) % RDW (11.5-15.5) % Neutrophils # (1.3-7.7) k/uL Lymphocytes # (1.0-4.8) k/uL Creatinine (0.66-1.25) mg/dL POC Glucose (mg/dL) 107 H 182 H (75-99) mg/dL Calcium (8.4-10.2) mg/dL Microbiology - Last 24 Hours (Table) 01/28/18 11:20 Gram Stain - Preliminary Pleural Fluid Body Fluid Culture - Preliminary Assessment and Plan Assessment: Assessment and Plan 1. Acute respiratory failure with hypoxia: Thought to be secondary to mucous plugging. CXR shows persistent chronic emphysematous changes with tiny right pleural effusion and left basilar infiltrate with suspected pleural effusion. Most recent ABG shows pH 7.50 pCO2 42 and HCO3 31 indicating primary metabolic alkalosis with respiratory alkalosis. s/p thoracentesis 01/28/2018, pleural Cx currently negative. BAL Cx negative. Continue Lasix 40 mg IV BID, DuoNeb scheduled and PRN. FU Pleural Cx (final), Pulmonology 2. LLL Pneumonia: Patient is afebrile with no leukocytosis. Previous CXR with concerns of LLL PNA. BAL Cx negative. Continue Levofloxacin 750 mg IV QD, Zosyn 3.375 mg IV TID. Continue DuoNeb. Mucinex 600 mg PO BID. Incentive spirometry. HOB elevation. FU Pulmonology, Pleural Cx 3. Sigmoid diverticulitis: With possible submucosal abscess vs mass. Given L spine MRI and severe anemia, there is concern for a GI cancer. Continue Zosyn and Levoloxacin IV. Gastroenterology on board - plans for EGD and C-scope when able. FU GI 4. Symptomatic anemia: Hg 9.4 Hct 29.8 MCV 91.8. He is s/p 3 units PRBC. FOBT + . Iron studies are consistent with anemia of chronic disease. TSH, Folate and B12 are within normal limits. LDH elevated, indicating hemolysis. 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 Patient is pending EGD and C-scope. Daily CBC. FU Hematology, outPT BM Bx if workup unrevealing. 5. 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 Neurology consulted - weakness thought to be due to malnutrition, hypoK and severe anemia. CPK within normal limits. Fall precautions. FU Neurology, PT/OT 6. Troponemia: Trop 0.14 x 2, 0.10, with EKG showing SR with PVC. Echocardiogram shows EF of 55-60%. No further testing at this time. 7. Polysubstance abuse: EtOH and tobacco. Continue MVI 1 tab PO QD, Folic acid 1 mg PO QD, Thiamine 100 mg PO BID. CIWA protocol. Ativan IV PRN for WD. Nicotine patch. 8. Protein calorie malnutrition: BMI 19.6. Advance diet to Regular. FU Dietitian 9. DVT/GI Prophylaxis: Protonix 40 mg IV QD. Patient still requires pressors, will stay in the ICU. Being treated for pneumonia and diverticulitis. He will need EGD and colonoscopy to rule out any GI malignancy.
[2018-01-29 17:43] LABS: Glucose,Whole Blood 122 mg/dL (75-99)
[2018-01-29 23:37] LABS: Glucose,Whole Blood 106 mg/dL (75-99)
[2018-01-30 05:38] LABS: Anisocytosis Moderate; Basophils % (A) 0 %; Eosinophils # (A) 0.1 k/uL (0-0.7); Eosinophils % (A) 2 %; HGB 8.3 gm/dL (13.0-17.5); Hypochromasia Marked; Lymphocytes # (A) 0.6 k/uL (1.0-4.8); Lymphocytes % (A) 12 %; MCH 28.4 pg (25.0-35.0); MCHC 30.7 g/dL (31.0-37.0); MCV 92.7 fL (80.0-100.0); Macrocytosis Slight; Mean Platelet Volume 9.5; Microcytosis Slight; Monocytes # (A) 0.3 k/uL (0-1.0); Monocytes % (A) 6 %; Neutrophils # (A) 3.9 k/uL (1.3-7.7); Neutrophils % (A) 77 %; Platelet Count 314 k/uL (150-450); Poikilocytosis Slight; RBC 2.91 m/uL (4.30-5.90)
[2018-01-30 05:51] LABS: Anion Gap 4 mmol/L; Blood Urea Nitrogen 6 mg/dL (9-20); Calcium 7.8 mg/dL (8.4-10.2); Carbon Dioxide 30 mmol/L (22-30); Chloride 99 mmol/L (98-107); Glucose 88 mg/dL (74-99); Magnesium 1.9 mg/dL (1.6-2.3); Phosphorus 3.6 mg/dL (2.5-4.5); Potassium 3.3 mmol/L (3.5-5.1); Sodium 133 mmol/L (137-145)
[2018-01-30 06:58] LABS: Glucose,Whole Blood 99 mg/dL (75-99)
[2018-01-30] MEDS: POTASSIUM CHLORIDE 20 MEQ in WATER FOR INJECTION 1 100ML.BAG IVPB SCH ×2 (07:06→08:19)
[2018-01-30] MEDS: IPRATROPIUM-ALBUTEROL 3 ML NEB INHALATION SCH ×4 (07:09→19:28)
[2018-01-30] MEDS: SODIUM CHLORIDE 0.9% 1,000 ML IV SCH (07:09)
[2018-01-30] MEDS: MAGNESIUM SULFATE-D5W PMX 1 GM in DEXTROSE/WATER 1 100ML.BAG IVPB SCH ×2 (07:55→08:54)
[2018-01-30] MEDS: guaiFENesin 600 MG TABLET.ER PO SCH ×2 (08:02→20:30)
[2018-01-30] MEDS: PANTOPRAZOLE 40 MG/10 ML VIAL IV SCH (08:02)
[2018-01-30] MEDS: NICOTINE 21MG/24HR PATCH TRANSDERM SCH (08:02)
[2018-01-30] MEDS: FUROSEMIDE 10 MG/ML 4 ML VIAL IV SCH ×2 (08:02→20:30)
[2018-01-30] MEDS: PIPERACILLIN-TAZOBACTAM 3.375 GM in DEXTROSE/WATER 1 50ML.BAG IVPB SCH ×2 (08:36→15:19)
--- NOTE | 2018-01-30 09:24 | P.PN ---
Subjective Progress Note Date: 01/30/18 The patient is still quite weak and remains on pressors, though he is slowly being weaned off. No obvious bleeding noted. He denies any abdominal pain at present. No fevers or chills. Objective - Vital Signs Vital signs: Vital Signs Temp 98.5 F 01/30/18 08:00 Pulse 97 01/30/18 09:00 Resp 23 01/30/18 09:00 BP 107/60 01/30/18 09:00 Pulse Ox 100 01/30/18 09:00 Intake & Output 01/29/18 01/30/18 01/30/18 18:59 06:59 18:59 Intake Total 840.115 599.5 397.5 Output Total 795 3390 1040 Balance 45.115 -2790.5 -642.5 Weight 56.7 kg Intake: IV 813 349.5 47.5 Bolus 256 Magnesium Sulfate-D5w Pmx 100 1 gm In Dextrose/Water 1 100ml.bag @ 100 mls/hr IVPB Q1H [facility] Rx#: [id number] Piperacillin-Tazobactam 3 100 37.5 12.5 .375 gm In Dextrose/Water 1 50ml.bag @ 12.5 mls/hr IVPB Q8HR [facility] Rx#: [id number] Potassium Chloride 10 meq 100 In Water For Injection 1 100ml.bag @ 100 mls/hr IVPB Q1H [facility] Rx#: [id number] Sodium Chloride 0.9% 1, 200 240 20 000 ml @ 20 mls/hr IV . Q24H [facility] Rx#:[id number] pressure bag 57 72 15 Intake, IV Titration 27.115 350 Amount Magnesium Sulfate-D5w Pmx 200 1 gm In Dextrose/Water 1 100ml.bag @ 100 mls/hr IVPB Q1H [facility] Rx#: [id number] Norepinephrine 16 mg In 27.115 Sodium Chloride 0.9% 250 ml @ Titrate IV .Q0M [facility] Rx#:[id number] Potassium Chloride 20 meq 150 In Water For Injection 1 100ml.bag @ 50 mls/hr IVPB Q2H [facility] Rx#: [id number] Oral 250 Output: Urine 795 3390 1040 Other: Voiding Method Indwelling Catheter Indwelling Catheter Indwelling Catheter ABP, PAP, CO, CI - Last Documented Arterial Blood Pressure 115/71 - Constitutional General appearance: Present: no acute distress - EENT Eyes: Present: EOMI ENT: Present: normal oropharynx - Respiratory Respiratory: bilateral: diminished - Cardiovascular Rhythm: regular Heart sounds: normal: S1, S2 - Gastrointestinal General gastrointestinal: Present: normal bowel sounds, soft - Integumentary Integumentary: Present: normal - Neurologic Neurologic: Present: CNII-XII intact - Musculoskeletal Musculoskeletal: Present: generalized weakness, strength equal bilaterally - Psychiatric Psychiatric: Present: A&O x's 3 - Labs CBC & Chem 7: 01/30/18 05:25 01/30/18 05:25 Labs: Abnormal Lab Results - Last 24 Hours (Table) 01/29/18 01/29/18 01/29/18 Range/Units 11:53 17:39 23:36 RBC (4.30-5.90) m/uL Hgb (13.0-17.5) gm/dL Hct (39.0-53.0) % MCHC (31.0-37.0) g/dL RDW (11.5-15.5) % Lymphocytes # (1.0-4.8) k/uL Sodium (137-145) mmol/L Potassium (3.5-5.1) mmol/L BUN (9-20) mg/dL Creatinine (0.66-1.25) mg/dL POC Glucose (mg/dL) 182 H 122 H 106 H (75-99) mg/dL Calcium (8.4-10.2) mg/dL 01/30/18 01/30/18 Range/Units 05:25 05:25 RBC 2.91 L (4.30-5.90) m/uL Hgb 8.3 L (13.0-17.5) gm/dL Hct 27.0 L (39.0-53.0) % MCHC 30.7 L (31.0-37.0) g/dL RDW 22.0 H (11.5-15.5) % Lymphocytes # 0.6 L (1.0-4.8) k/uL Sodium 133 L (137-145) mmol/L Potassium 3.3 L (3.5-5.1) mmol/L BUN 6 L (9-20) mg/dL Creatinine 0.51 L (0.66-1.25) mg/dL POC Glucose (mg/dL) (75-99) mg/dL Calcium 7.8 L (8.4-10.2) mg/dL Microbiology - Last 24 Hours (Table) 01/28/18 11:20 Gram Stain - Preliminary Pleural Fluid Body Fluid Culture - Preliminary Assessment and Plan (1) Anemia Narrative/Plan: This is felt to be multifactorial, related to underlying bone marrow dysfunction from his history of EtOH, as well as for the suppression from inflammation related to acute illness. Component of blood loss cannot be totally ruled out. Hemoglobin is currently stable in a safe range. Continue to monitor with supplementation as needed. GI workup is pending when the patient is more stable. Current Visit: Yes Status: Acute Priority: High Code(s): D64.9 - ANEMIA, UNSPECIFIED SNOMED Code(s): 073402229 (2) Abnormal MRI scan, bone Narrative/Plan: The MRI report noted heterogenous appearance of the bone marrow, with malignancy of the differential. However this is a very nonspecific finding, especially in an acutely ill patient, where there is increased bone marrow activity anyway. In a patient with a history of heavy alcohol use, increased fatty infiltration of the bone marrow can also give this appearance. The case has been discussed with the primary service. The patient has actually had an extensive workup for malignancy already including computed tomography scan of the chest abdomen and pelvis, and lab work which have included protein electrophoresis studies for myeloma. These have all been negative. He is also scheduled to have a GI workup as soon as he is more stable. If GI workup is negative, the plan would be to follow-up as an outpatient. If his blood counts do not recover, despite resolution of his acute condition, then a bone marrow can be considered at that point. Current Visit: Yes Status: Acute Code(s): R93.7 - ABNORMAL FINDINGS ON DIAGNOSTIC IMAGING OF PRT MS SYS SNOMED Code(s): 905700840
[2018-01-30] MEDS: LEVOFLOXACIN 750MG-D5W PMX 750 MG in DEXTROSE/WATER 1 150ML.BAG IVPB SCH (10:14)
--- NOTE | 2018-01-30 11:31 | P.PN ---
Subjective Progress Note Date: 01/30/18 Principal diagnosis: Acute hypoxic respiratory failure secondary to left lower lobe pneumonia, left parapneumonic pleural effusion, profound anemia. And septic shock. This is a 72-year-old male patient, a chronic smoker, a chronic alcoholic, came into the hospital as the patient was becoming progressively weak to the point where he was unable to perform activities of daily today life. He came in to the emergency with generalized weakness, falling to the ground and he was unable to recover himself. Nevertheless there was no loss of consciousness or syncope. The patient in the emergency department was seen and evaluated. CAT scan of the brain was done that showed age-related atrophy and some chronic sinusitis. Chest x-ray was consistent with pulmonary granulomas consistent with old infection. The patient was found to profoundly anemic with a hemoglobin of 5.5. Troponin was minimally elevated at 0.1. The patient got transfused with packed RBC. Subsequently the patient got admitted to the medical floor and pulmonary consultation was requested knowing that the patient had a CAT scan of the chest and the findings were abnormal. Note that the patient had a full CAT scan of the chest abdomen and pelvis. CAT scan of the chest showed a limited air bronchogram involving the superior segment of the left lower lobe along with some fluid within the interlobar fissure in addition to small bibasilar pulmonary effusions. There is advanced background emphysema in addition to apical scarring and pulmonary granulomas 2 of them are seen on the right. There is also evidence of segmental compression atelectasis in lung bases bilaterally. The tracheobronchial tree was patent. Mediastinum showed some old mediastinal lymph node calcification suggestive of prior granulomatous disease. No pericardial effusion. Also, the patient showed hepatic steatosis, fatty infiltration of the liver, extensive atherosclerosis of the abdominal aorta and its branches, mild spinal canal stenosis at the level of T10-T11 and evidence of numerous sigmoid diverticulosis and questionable mild component of acute sigmoid diverticulitis and direct colonoscopic evaluation was recommended by the radiologist From the pulmonary standpoint, the patient is a chronic smoker and he has chronic exertional dyspnea and chronic congested cough. No hemoptysis. No pleurisy. No worsening shortness of breath. He can't recall a previous pneumonia back in 2016 involving the left lung base and he was hospitalized back then at [facility]. He was told that this was a severe pneumonia and he was very close to dying from this condition. He ultimately improved. Currently is no nausea or vomiting. Most of it abdominal pain. He is an alcohol drinker. He denies having to pass out from alcohol drinking. He denies having any seizure activity from alcohol drinking. He is currently on DT prophylaxis is also on nicotine patch. on 01/24/2018 the patient got transferred to the intensive care units. The patient early this morning at around 1 AM he became acutely short of breath. He became acutely hypoxic. Initially was on 2 L of oxygen by nasal cannula in progress with Dr. remigio morrison up and he was placed on the percent nonrebreather facemask. Subsequently was found to have labored breathing and rapid response team was called and the patient was placed on a BiPAP at a pressure of 12/5 cm of water with an FiO2 of 100%. Got transferred to the intensive care unit and his current pulse ox is around 91-92%. Chest x-ray shows significant abnormality and interval change compared to yesterday. There is significant amount of volume loss and interval development of atelectasis in the left lower lobe and some infiltration of the perihilar area and the left upper lobe. The patient is currently short of breath and tachypneic and in mild to moderate degree of respiratory distress even being on a BiPAP. As such have made decision to proceed with intubation and proceed with a bronchoscopic evaluation of the left lung. He may need the CAT scan of the chest repeated. He may need also to be placed on broad-spectrum antibiotics and I will restart him on a combination of Zosyn and Levaquin. His white cell count is not elevated. Is afebrile. The Benedict catheter was inserted and the urine output is diminished at this point in time. White cell count is at 6.1. Blood gases done this morning showed a pH of 7.33 with a pCO2 of 50 and pCO2 of 5700% nonrebreather facemask. He received a total of 2 units of packed RBC and hemoglobin today is 10.2. MRI of the spine was noted there is osseous structures and diffuse his energy his marrow signal and within the differential diagnoses there is a possibility of diffuse bony metastases. Patient was reevaluated today on 01/25/2018, in the ICU, on mechanical ventilation, ventilator settings are tidal volume of 400, FiO2 of 50%, assist control rate of 22, PEEP is 5. ABG is marginal with a pO2 of 78 pCO2 of 37 pH of 7.47. Patient remains on propofol is also on norepinephrine, 7 mcg/m, and propofol is 35 mcg/kg/m. Patient is arousable, follows simple instructions like wiggling toes, closing eyes, in spite of of low-dose propofol on board. Chest x-ray was reviewed, and it showed mostly a left lower lobe pneumonia left pleural effusion, and a small tiny right sided pleural effusion with atelectasis. His basic metabolic profile is normal except for low potassium of 3.1, being corrected, his CBC is relatively unremarkable. WBC count is 7.4 hemoglobin is 9.6. His hemoglobin is holding, patient received a total of 3 units of packed RBCs since admission. Patient is being followed by hematology/ oncology for what seems to be a picture of myeloproliferative disorder. Patient was reevaluated today on 01/26/2018, remains on mechanical ventilation, chest x-ray is showing worsening infiltrates in the right and left lower lobe, and bilateral pleural effusions. Patient remains on the same ventilator settings, however FiO2 was cut down to 40%, ABG showed a pO2 of 183 pCO2 of 34 pH of 7.50. Electrolytes and renal profile are normal. CBC is relatively normal, hemoglobin is holding at 8.9. Chest x-ray as noted earlier showing worsening bilateral pleural effusions and airspace disease in the lower lobes. Hence I have recommended Lasix to be given. In the meantime the patient is slowly waking up as we are slowly weaning down the propofol. Seems to follow simple instructions, but he seems to be generally weak. His norepinephrine is down to 2 mcg/m. Patient is still on antibiotics, bronchodilators, nutritional support, and I'm hoping we could consider a weaning trial on this patient today. Patient was reevaluated today on 01/27/2018, patient was extubated briefly yesterday, however shortly after I left the ICU, patient had a sudden episode of desaturation, although his initial ABG before extubation was excellent, and the patient had an excellent response to diuretics prior to extubation. Apparently the patient must have developed a mucous plug, and he was having difficulty clearing his secretions according to the nurse was taking care of the patient. Patient was immediately reintubated by PHARMACY INTAKE TECHNICIAN, and now he is back on mechanical ventilation. Ventilator settings today are assist control rate of 22 tidal volume of 400 FiO2 of 40%, PEEP is at 5. He is on propofol at 35 mcg/kg/m, he is also on norepinephrine at 1 mcg/m. ABG this morning showed a pO2 of 138 pCO2 of 40 pH of 7.48. Potassium is low at 2.0, corrected and repeat potassium was 3.7. Calcium is 6.4, however her albumin is 2.5. Renal profile is normal. CBC showed a WBC count of 6.5 hemoglobin of 8.8, holding nicely. Chest x-ray showed bilateral effusions and associated atelectasis. Hence more Lasix will be given today, and I would maintain him on Lasix at 40 mg IV push every 12 hours. No bowel movements in the last few days, hence the patient will be started on Reglan. Patient was seen by hematology on consultation, workup for multiple myeloma has been negative, and eventually the patient will need MRI of the lumbosacral spine. Patient was examined today in the ICU on 01/28/2018, remains on mechanical ventilation, patient is awake, seems to be alert oriented, follows simple instructions, yesterday he tolerated all modes good 6 hours of pressure support and CPAP, and he seems to be tolerating pressure support and CPAP well today as I'm watching the patient in the ICU. Chest x-ray continues to show bilateral pleural effusions, I recommended a stat ultrasound of the chest, and there is good sized right-sided pleural effusion which will be drained, and I have recommended to the patient that we go ahead and do thoracentesis. Patient is agreeable, and I plan to likely extubate the patient after the thoracentesis. His ventilator settings where tidal volume of 400 assist control rate of 22 FiO2 40% PEEP of 5. ABG this morning showed a pO2 of 111 he CO2 of 42 pH of 7.50. Hemoglobin is 9.2, holding nicely. Platelets are 341. Basic metabolic profile is normal renal profile is normal. Positive Hemoccult blood noted. But again his hemoglobin is holding nicely. Chest x-ray showed bilateral pleural effusions, right more so than left. Ultrasound confirmed, however the right-sided pleural effusion seems to be much larger than the left. And I plan to do a right-sided thoracentesis today. Reevaluated today on 01/29/2018, patient underwent a right-sided thoracentesis yesterday, followed by extubation from a pressure support mode of mechanical ventilation. Patient tolerated the extubation quite well. Continues to tolerate extubation today, his chest x-ray is significantly improved. Patient is feeling better, relatively asymptomatic. However he continues to have intermittently low blood pressure and he has been intermittently on a low dose of norepinephrine anywhere between 1-2 mcg/m. I will give him a fluid bolus today, and hopefully could get him off norepinephrine and possibly transfer him out of the ICU. Patient is feeling better overall, and he is in no form of respiratory distress at this point. CBC showed hemoglobin stable at 9.4. His electrolytes are normal renal profile is normal bicarb is 27. Potassium is 3.6. Continues to have some left lower lobe atelectasis and possible infiltrate in the left lower lobe with a small tiny left pleural effusion evaluated yesterday by ultrasound, and was not felt to be large enough to perform thoracentesis. Reevaluated today on 01/30/2018, patient tolerated extubation well over the last 2 days, he was actually extubated on 01/28/2018, blood pressure seems to be stabilizing, off norepinephrine, his mean arterial pressure is in the 70s. Patient is relatively asymptomatic, his labs were reviewed and his hemoglobin is 8.3, WBC count is 5 potassium is a bit low being corrected. Renal profile is normal. No chest x-ray was done today. Objective - Vital Signs Vital signs: Vital Signs Temp 98.5 F 01/30/18 08:00 Pulse 84 01/30/18 11:25 Resp 15 01/30/18 11:00 BP 90/64 01/30/18 11:00 Pulse Ox 100 01/30/18 11:00 Intake & Output 01/29/18 01/30/18 01/30/18 18:59 06:59 18:59 Intake Total 840.115 599.5 798.5 Output Total 795 3390 2015 Balance 45.115 -2790.5 -1216.5 Weight 56.7 kg Intake: IV 813 349.5 198.5 Bolus 256 Levofloxacin 750Mg-D5w 100 Pmx 750 mg In Dextrose/ Water 1 150ml.bag @ 100 mls/hr IVPB Q24H [facility] Rx#: [id number] Magnesium Sulfate-D5w Pmx 100 1 gm In Dextrose/Water 1 100ml.bag @ 100 mls/hr IVPB Q1H [facility] Rx#: [id number] Piperacillin-Tazobactam 3 100 37.5 37.5 .375 gm In Dextrose/Water 1 50ml.bag @ 12.5 mls/hr IVPB Q8HR [facility] Rx#: [id number] Potassium Chloride 10 meq 100 In Water For Injection 1 100ml.bag @ 100 mls/hr IVPB Q1H [facility] Rx#: [id number] Sodium Chloride 0.9% 1, 200 240 40 000 ml @ 20 mls/hr IV . Q24H [facility] Rx#:[id number] pressure bag 57 72 21 Intake, IV Titration 27.115 350 Amount Magnesium Sulfate-D5w Pmx 200 1 gm In Dextrose/Water 1 100ml.bag @ 100 mls/hr IVPB Q1H [facility] Rx#: [id number] Norepinephrine 16 mg In 27.115 Sodium Chloride 0.9% 250 ml @ Titrate IV .Q0M [facility] Rx#:[id number] Potassium Chloride 20 meq 150 In Water For Injection 1 100ml.bag @ 50 mls/hr IVPB Q2H [facility] Rx#: [id number] Oral 250 250 Output: Urine 795 3390 2014 Other: Voiding Method Indwelling Catheter Indwelling Catheter Indwelling Catheter ABP, PAP, CO, CI - Last Documented Arterial Blood Pressure 101/68 - Exam Physical Exam: Revealed a 72-year-old white male, on nasal cannula, in no distress. Head: Atraumatic, normocephalic. HEENT:[Neck is supple.] [No neck masses.] [No thyromegaly.] [No JVD.] PERRLA, EOMI, moist mucous membranes Chest: Good breath sound bilaterally, no crackles or rhonchi or wheezes symmetrical chest expansion, no chest wall tenderness. Cardiac Exam: [Normal S1 and S2, no S3 gallop, no murmur.] Abdomen: [Soft, nontender, no megaly, no rebound, no guarding, normal bowel sounds.] Extremities: [No clubbing, no edema, no cyanosis.] Venodyne boots noted in both lower extremities. Neurological Exam: Generally weak otherwise no gross focal neurologic deficit Lymphatics: No lymphadenopathy. Psychiatric: Normal mood, blunt affect, intact mental status examination. - Labs CBC & Chem 7: 01/30/18 05:25 01/30/18 05:25 Labs: Abnormal Lab Results - Last 24 Hours (Table) 01/29/18 01/29/18 01/29/18 Range/Units 11:53 17:39 23:36 RBC (4.30-5.90) m/uL Hgb (13.0-17.5) gm/dL Hct (39.0-53.0) % MCHC (31.0-37.0) g/dL RDW (11.5-15.5) % Lymphocytes # (1.0-4.8) k/uL Sodium (137-145) mmol/L Potassium (3.5-5.1) mmol/L BUN (9-20) mg/dL Creatinine (0.66-1.25) mg/dL POC Glucose (mg/dL) 182 H 122 H 106 H (75-99) mg/dL Calcium (8.4-10.2) mg/dL 01/30/18 01/30/18 Range/Units 05:25 05:25 RBC 2.91 L (4.30-5.90) m/uL Hgb 8.3 L (13.0-17.5) gm/dL Hct 27.0 L (39.0-53.0) % MCHC 30.7 L (31.0-37.0) g/dL RDW 22.0 H (11.5-15.5) % Lymphocytes # 0.6 L (1.0-4.8) k/uL Sodium 133 L (137-145) mmol/L Potassium 3.3 L (3.5-5.1) mmol/L BUN 6 L (9-20) mg/dL Creatinine 0.51 L (0.66-1.25) mg/dL POC Glucose (mg/dL) (75-99) mg/dL Calcium 7.8 L (8.4-10.2) mg/dL Microbiology - Last 24 Hours (Table) 01/28/18 11:20 Gram Stain - Preliminary Pleural Fluid Body Fluid Culture - Preliminary Assessment and Plan Assessment: Impression: 1 acute hypoxic respiratory failure requiring intubation and mechanical ventilation, secondary to community-acquired pneumonia, resolved, patient was extubated uneventfully on 01/28 2 symptomatic anemia possible myeloproliferative disorder, being followed by heme/onc 3 chronic alcoholism 4 diffuse heterogeneous bone marrow signal, being addressed by hematology on the case. Workup for multiple myeloma was negative. 5 troponin leak, strongly doubt acute myocardial infarction. 6 frequent premature ventricular contractions 7 generalized weakness and debility, severe protein calorie malnutrition is suspected. Continue fall precautions 8 history of diverticulosis, there continues to concern about GI carcinoma, patient will eventually require further GI workup. 9 bilateral pleural effusions, exact etiology not clear, could be parapneumonic in nature. Thoracentesis was done on 01/28/2018 results of the pleural effusion reflected a transudate of pleural effusion. 10 possible sepsis and septic shock secondary to pneumonia as noted above. 11 status post extubation and reintubation on 01/26/2018. May have developed mucous plug and could not clear secretions, patient had to be reintubated shortly after he was extubated. 12 status post thoracentesis followed by extubation on 01/28/2018. Pleural effusion was noted to be transudative in nature Recommendation: Continue present supportive care measures, patient was seen in the ICU today, and I plan to transfer him to a monitor bed on selective. We'll continue to follow. Prognosis remains guarded considering his multiple complex medical issues as noted above. Time with Patient: Less than 30
[2018-01-30] MEDS: THIAMINE 100 MG TAB PO SCH ×2 (12:12→17:51)
[2018-01-30] MEDS: MULTIVITAMINS, THERA 1 EACH TAB PO SCH (12:12)
[2018-01-30] MEDS: FOLIC ACID 1 MG TAB PO SCH (12:12)
[2018-01-30 12:13] LABS: Glucose,Whole Blood 109 mg/dL (75-99)
--- NOTE | 2018-01-30 12:50 | P.PN ---
Subjective Progress Note Date: 01/30/18 Principal diagnosis: acute respiratory failure, anemia patient was seen and examined. No acute events overnight. patient is sitting comfortably in bed, eating lunch. He has no specific complaints at this time. He does endorse a cough which is productive. He denies any chest pain or shortness of breath. Objective - Vital Signs Vital signs: Vital Signs Temp 98.5 F 01/30/18 08:00 Pulse 91 01/30/18 12:00 Resp 23 01/30/18 12:00 BP 85/55 01/30/18 12:00 Pulse Ox 100 01/30/18 12:00 Intake & Output 01/29/18 01/30/18 01/30/18 18:59 06:59 18:59 Intake Total 840.115 599.5 874.0 Output Total 795 3390 2050 Balance 45.115 -2790.5 -1176.0 Weight 56.7 kg Intake: IV 813 349.5 274.0 Bolus 256 Levofloxacin 750Mg-D5w 150 Pmx 750 mg In Dextrose/ Water 1 150ml.bag @ 100 mls/hr IVPB Q24H [facility] Rx#: [id number] Magnesium Sulfate-D5w Pmx 100 1 gm In Dextrose/Water 1 100ml.bag @ 100 mls/hr IVPB Q1H [facility] Rx#: [id number] Piperacillin-Tazobactam 3 100 37.5 50.0 .375 gm In Dextrose/Water 1 50ml.bag @ 12.5 mls/hr IVPB Q8HR [facility] Rx#: [id number] Potassium Chloride 10 meq 100 In Water For Injection 1 100ml.bag @ 100 mls/hr IVPB Q1H [facility] Rx#: [id number] Sodium Chloride 0.9% 1, 200 240 50 000 ml @ 20 mls/hr IV . Q24H [facility] Rx#:[id number] pressure bag 57 72 24 Intake, IV Titration 27.115 350 Amount Magnesium Sulfate-D5w Pmx 200 1 gm In Dextrose/Water 1 100ml.bag @ 100 mls/hr IVPB Q1H [facility] Rx#: [id number] Norepinephrine 16 mg In 27.115 Sodium Chloride 0.9% 250 ml @ Titrate IV .Q0M [facility] Rx#:[id number] Potassium Chloride 20 meq 150 In Water For Injection 1 100ml.bag @ 50 mls/hr IVPB Q2H [facility] Rx#: [id number] Oral 250 250 Output: Urine 795 6280 2050 Other: Voiding Method Indwelling Catheter Indwelling Catheter Indwelling Catheter ABP, PAP, CO, CI - Last Documented Arterial Blood Pressure 90/59 - Exam General: [cachectic], [no distress], [appears at stated age] Derm: [warm], [dry] Head: [atraumatic], [normocephalic], [symmetric] Eyes: [EOMI], [no lid lag], [anicteric sclera] Mouth: [no lip lesion], [mucus membranes moist] Cardiovascular: [S1S2 reg], [no murmur], [positive DP pulse bilateral], Lungs: [clear to auscultation bilateral], [no rhonchi, no rales] , [no accessory muscle use] Abdominal: [soft], [ nontender to palpation], [no guarding], [no appreciable organomegaly] Ext: [no gross muscle atrophy], [no edema], [no contractures] - Labs CBC & Chem 7: 01/30/18 05:25 01/30/18 05:25 Labs: Abnormal Lab Results - Last 24 Hours (Table) 01/29/18 01/29/18 01/30/18 Range/Units 17:39 23:36 05:25 RBC 2.91 L (4.30-5.90) m/uL Hgb 8.3 L (13.0-17.5) gm/dL Hct 27.0 L (39.0-53.0) % MCHC 30.7 L (31.0-37.0) g/dL RDW 22.0 H (11.5-15.5) % Lymphocytes # 0.6 L (1.0-4.8) k/uL Sodium (137-145) mmol/L Potassium (3.5-5.1) mmol/L BUN (9-20) mg/dL Creatinine (0.66-1.25) mg/dL POC Glucose (mg/dL) 122 H 106 H (75-99) mg/dL Calcium (8.4-10.2) mg/dL 01/30/18 01/30/18 Range/Units 05:25 12:05 RBC (4.30-5.90) m/uL Hgb (13.0-17.5) gm/dL Hct (39.0-53.0) % MCHC (31.0-37.0) g/dL RDW (11.5-15.5) % Lymphocytes # (1.0-4.8) k/uL Sodium 133 L (137-145) mmol/L Potassium 3.3 L (3.5-5.1) mmol/L BUN 6 L (9-20) mg/dL Creatinine 0.51 L (0.66-1.25) mg/dL POC Glucose (mg/dL) 109 H (75-99) mg/dL Calcium 7.8 L (8.4-10.2) mg/dL Microbiology - Last 24 Hours (Table) 01/28/18 11:20 Gram Stain - Preliminary Pleural Fluid Body Fluid Culture - Preliminary Assessment and Plan Assessment: Assessment and Plan 1. Acute respiratory failure with hypoxia: Thought to be secondary to mucous plugging. CXR shows persistent chronic emphysematous changes with tiny right pleural effusion and left basilar infiltrate with suspected pleural effusion. Most recent ABG shows pH 7.50 pCO2 42 and HCO3 31 indicating primary metabolic alkalosis with respiratory alkalosis. s/p thoracentesis 01/28/2018, pleural Cx currently negative. BAL Cx negative. Continue Lasix 40 mg IV BID, DuoNeb scheduled and PRN. FU Pleural Cx (final), Pulmonology 2. LLL Pneumonia: Patient is afebrile with no leukocytosis. Previous CXR with concerns of LLL PNA. BAL Cx negative. Continue Levofloxacin 750 mg IV QD, Zosyn 3.375 mg IV TID. Continue DuoNeb. Mucinex 600 mg PO BID. Incentive spirometry. HOB elevation. FU Pulmonology, Pleural Cx 3. Sigmoid diverticulitis: With possible submucosal abscess vs mass. Given L spine MRI and severe anemia, there is concern for a GI cancer. Continue Zosyn and Levoloxacin IV. Gastroenterology on board - plans for EGD and C-scope when able. FU GI 4. Symptomatic anemia: Hg 8.3 Hct 27 MCV 92.7. He is s/p 3 units PRBC. FOBT +. Iron studies are consistent with anemia of chronic disease. TSH, Folate and B12 are within normal limits. LDH elevated, indicating hemolysis. 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 Patient is pending EGD and C-scope. Daily CBC. FU Hematology, outPT BM Bx if workup unrevealing. 5. 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 Neurology consulted - weakness thought to be due to malnutrition, hypoK and severe anemia. CPK within normal limits. Fall precautions. FU Neurology, PT/OT 6. Troponemia: Trop 0.14 x 2, 0.10, with EKG showing SR with PVC. Echocardiogram shows EF of 55-60%. No further testing at this time. 7. Polysubstance abuse: EtOH and tobacco. Continue MVI 1 tab PO QD, Folic acid 1 mg PO QD, Thiamine 100 mg PO BID. CIWA protocol. Ativan IV PRN for WD. Nicotine patch. 8. Protein calorie malnutrition: BMI 19.6. Advance diet to Regular. FU Dietitian 9. DVT/GI Prophylaxis: Protonix 40 mg IV QD. Off pressors, transfer out of MICU. Being treated for pneumonia and diverticulitis. He will need EGD and colonoscopy to rule out any GI malignancy.
[2018-01-30] MEDS ORDERED: POTASSIUM CHLORIDE ER 20 MEQ TAB.ER PO SCH (13:00)
[2018-01-30 17:27] LABS: Glucose,Whole Blood 110 mg/dL (75-99)
[2018-01-30 22:30] LABS: Glucose,Whole Blood 118 mg/dL (75-99)
[2018-01-31] MEDS: PIPERACILLIN-TAZOBACTAM 3.375 GM in DEXTROSE/WATER 1 50ML.BAG IVPB SCH (01:27)
[2018-01-31] MEDS: SODIUM CHLORIDE 0.9% 1,000 ML IV SCH (01:28)
[2018-01-31 04:57] LABS: Anisocytosis Moderate; Basophils % (A) 1 %; Eosinophils # (A) 0.2 k/uL (0-0.7); Eosinophils % (A) 3 %; HCT 27.1 % (39.0-53.0); HGB 8.3 gm/dL (13.0-17.5); Hypochromasia Moderate; Lymphocytes # (A) 0.7 k/uL (1.0-4.8); Lymphocytes % (A) 16 %; MCH 28.5 pg (25.0-35.0); MCHC 30.7 g/dL (31.0-37.0); MCV 92.7 fL (80.0-100.0); Macrocytosis Slight; Mean Platelet Volume 7.5; Microcytosis Slight; Monocytes # (A) 0.3 k/uL (0-1.0); Monocytes % (A) 7 %; Neutrophils # (A) 3.3 k/uL (1.3-7.7); Neutrophils % (A) 70 %; Platelet Count 367 k/uL (150-450); Poikilocytosis Slight; RBC 2.92 m/uL (4.30-5.90); WBC 4.7 k/uL (3.8-10.6)
[2018-01-31 05:14] LABS: Anion Gap 5 mmol/L; Blood Urea Nitrogen 6 mg/dL (9-20); Calcium 8.2 mg/dL (8.4-10.2); Carbon Dioxide 30 mmol/L (22-30); Chloride 99 mmol/L (98-107); Glucose 85 mg/dL (74-99); Phosphorus 3.9 mg/dL (2.5-4.5); Sodium 134 mmol/L (137-145)
[2018-01-31 06:03] LABS: Glucose,Whole Blood 95 mg/dL (75-99)
[2018-01-31] MEDS: IPRATROPIUM-ALBUTEROL 3 ML NEB INHALATION SCH ×4 (06:43→20:16)
[2018-01-31] MEDS: LEVOFLOXACIN 750MG-D5W PMX 750 MG in DEXTROSE/WATER 1 150ML.BAG IVPB SCH (08:56)
[2018-01-31] MEDS: PANTOPRAZOLE 40 MG/10 ML VIAL IV SCH (08:56)
[2018-01-31] MEDS: FUROSEMIDE 40 MG TAB PO SCH ×2 (08:56→18:24)
[2018-01-31] MEDS: guaiFENesin 600 MG TABLET.ER PO SCH ×2 (08:57→22:28)
[2018-01-31] MEDS: NICOTINE 21MG/24HR PATCH TRANSDERM SCH (09:22)
[2018-01-31 11:50] LABS: Glucose,Whole Blood 85 mg/dL (75-99)
--- NOTE | 2018-01-31 12:47 | P.PN ---
Subjective Progress Note Date: 01/31/18 Principal diagnosis: Acute respiratory failure Patient was seen and examined. No acute events overnight. Patient eating sandwich at bedside comfortably. He has no complaints today. Objective - Vital Signs Vital signs: Vital Signs Temp 98.6 F 01/31/18 07:00 Pulse 90 01/31/18 12:08 Resp 16 01/31/18 08:00 BP 106/71 01/31/18 08:00 Pulse Ox 100 01/31/18 07:00 Intake & Output 01/30/18 01/31/18 01/31/18 18:59 06:59 18:59 Intake Total 1000.5 762.5 Output Total 2500 1670 Balance -1499.5 -907.5 Weight 54.3 kg Intake: IV 400.5 262.5 Levofloxacin 750Mg-D5w 150 Pmx 750 mg In Dextrose/ Water 1 150ml.bag @ 100 mls/hr IVPB Q24H [facility] Rx#: [id number] Piperacillin-Tazobactam 3 87.5 12.5 .375 gm In Dextrose/Water 1 50ml.bag @ 12.5 mls/hr IVPB Q8HR [facility] Rx#: [id number] Sodium Chloride 0.9% 1, 130 250 000 ml @ 20 mls/hr IV . Q24H [facility] Rx#:[id number] pressure bag 33 Intake, IV Titration 350 Amount Magnesium Sulfate-D5w Pmx 200 1 gm In Dextrose/Water 1 100ml.bag @ 100 mls/hr IVPB Q1H [facility] Rx#: [id number] Potassium Chloride 20 meq 150 In Water For Injection 1 100ml.bag @ 50 mls/hr IVPB Q2H [facility] Rx#: [id number] Oral 250 500 Output: Urine 2500 1670 Other: Voiding Method Indwelling Catheter Indwelling Catheter # Voids 0 ABP, PAP, CO, CI - Last Documented Arterial Blood Pressure 93/57 - Exam General: [cachectic], [no distress], [appears at stated age] Derm: [warm], [dry] Head: [atraumatic], [normocephalic], [symmetric] Eyes: [EOMI], [no lid lag], [anicteric sclera] Mouth: [no lip lesion], [mucus membranes moist] Cardiovascular: [S1S2 reg], [no murmur], [positive DP pulse bilateral], Lungs: [clear to auscultation bilateral], [no rhonchi, no rales] , [no accessory muscle use] Abdominal: [soft], [ nontender to palpation], [no guarding], [no appreciable organomegaly] Ext: [no gross muscle atrophy], [no edema], [no contractures] - Labs CBC & Chem 7: 01/31/18 04:45 01/31/18 04:45 Labs: Abnormal Lab Results - Last 24 Hours (Table) 01/30/18 01/30/18 01/31/18 Range/Units 17:25 22:27 04:45 RBC 2.92 L (4.30-5.90) m/uL Hgb 8.3 L (13.0-17.5) gm/dL Hct 27.1 L (39.0-53.0) % MCHC 30.7 L (31.0-37.0) g/dL RDW 22.0 H (11.5-15.5) % Lymphocytes # 0.7 L (1.0-4.8) k/uL Sodium (137-145) mmol/L BUN (9-20) mg/dL Creatinine (0.66-1.25) mg/dL POC Glucose (mg/dL) 110 H 118 H (75-99) mg/dL Calcium (8.4-10.2) mg/dL 01/31/18 Range/Units 04:45 RBC (4.30-5.90) m/uL Hgb (13.0-17.5) gm/dL Hct (39.0-53.0) % MCHC (31.0-37.0) g/dL RDW (11.5-15.5) % Lymphocytes # (1.0-4.8) k/uL Sodium 134 L (137-145) mmol/L BUN 6 L (9-20) mg/dL Creatinine 0.49 L (0.66-1.25) mg/dL POC Glucose (mg/dL) (75-99) mg/dL Calcium 8.2 L (8.4-10.2) mg/dL Microbiology - Last 24 Hours (Table) 01/28/18 11:20 Gram Stain - Preliminary Pleural Fluid Body Fluid Culture - Preliminary Assessment and Plan Assessment: Assessment and Plan 1. Sigmoid diverticulitis: With possible submucosal abscess vs mass. Given L spine MRI and severe anemia, there is concern for a GI cancer. Continue Zosyn and Levoloxacin IV. Gastroenterology on board - plans for EGD and C-scope when able. FU GI 2. Symptomatic anemia: Hg 8.3 Hct 27.1 MCV 92.7. He is s/p 3 units PRBC. FOBT + . Iron studies are consistent with anemia of chronic disease. TSH, Folate and B12 are within normal limits. LDH elevated, indicating hemolysis. 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 Patient is pending EGD and C-scope. Daily CBC. FU Hematology, outPT BM Bx if workup unrevealing. 3. Acute respiratory failure with hypoxia: Thought to be secondary to mucous plugging. CXR shows persistent chronic emphysematous changes with tiny right pleural effusion and left basilar infiltrate with suspected pleural effusion. Most recent ABG shows pH 7.50 pCO2 42 and HCO3 31 indicating primary metabolic alkalosis with respiratory alkalosis. s/p thoracentesis 01/28/2018, pleural Cx currently negative. BAL Cx negative. Continue Lasix 40 mg IV BID, DuoNeb scheduled and PRN. FU Pleural Cx (final), Pulmonology 4. LLL Pneumonia: Patient is afebrile with no leukocytosis. Previous CXR with concerns of LLL PNA. BAL Cx negative. Continue Levofloxacin 750 mg IV QD, Zosyn 3.375 mg IV TID. Continue DuoNeb. Mucinex 600 mg PO BID. Incentive spirometry. HOB elevation. FU Pulmonology, Pleural Cx 5. 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 Neurology consulted - weakness thought to be due to malnutrition, hypoK and severe anemia. CPK within normal limits. Fall precautions. FU Neurology, PT/OT 6. Troponemia: Trop 0.14 x 2, 0.10, with EKG showing SR with PVC. Echocardiogram shows EF of 55-60%. No further testing at this time. 7. Polysubstance abuse: EtOH and tobacco. Continue MVI 1 tab PO QD, Folic acid 1 mg PO QD, Thiamine 100 mg PO BID. CIWA protocol. Ativan IV PRN for WD. Nicotine patch. 8. Protein calorie malnutrition: BMI 17.2. Advance diet to Regular. FU Dietitian 9. DVT/GI Prophylaxis: Protonix 40 mg IV QD. Off pressors, transfer out of MICU. Being treated for pneumonia and diverticulitis. He will need EGD and colonoscopy to rule out any GI malignancy. Disposition likely acute rehab. GABRIELLE on board for placement.
[2018-01-31] MEDS: MULTIVITAMINS, THERA 1 EACH TAB PO SCH (13:37)
[2018-01-31] MEDS: FOLIC ACID 1 MG TAB PO SCH (13:37)
[2018-01-31] MEDS: THIAMINE 100 MG TAB PO SCH ×2 (13:42→18:24)
--- NOTE | 2018-01-31 13:52 | P.PN ---
Subjective Progress Note Date: 01/31/18 Principal diagnosis: Acute hypoxic respiratory failure secondary to left lower lobe pneumonia, left parapneumonic pleural effusion, profound anemia. And septic shock. This is a 72-year-old male patient, a chronic smoker, a chronic alcoholic, came into the hospital as the patient was becoming progressively weak to the point where he was unable to perform activities of daily today life. He came in to the emergency with generalized weakness, falling to the ground and he was unable to recover himself. Nevertheless there was no loss of consciousness or syncope. The patient in the emergency department was seen and evaluated. CAT scan of the brain was done that showed age-related atrophy and some chronic sinusitis. Chest x-ray was consistent with pulmonary granulomas consistent with old infection. The patient was found to profoundly anemic with a hemoglobin of 5.5. Troponin was minimally elevated at 0.1. The patient got transfused with packed RBC. Subsequently the patient got admitted to the medical floor and pulmonary consultation was requested knowing that the patient had a CAT scan of the chest and the findings were abnormal. Note that the patient had a full CAT scan of the chest abdomen and pelvis. CAT scan of the chest showed a limited air bronchogram involving the superior segment of the left lower lobe along with some fluid within the interlobar fissure in addition to small bibasilar pulmonary effusions. There is advanced background emphysema in addition to apical scarring and pulmonary granulomas 2 of them are seen on the right. There is also evidence of segmental compression atelectasis in lung bases bilaterally. The tracheobronchial tree was patent. Mediastinum showed some old mediastinal lymph node calcification suggestive of prior granulomatous disease. No pericardial effusion. Also, the patient showed hepatic steatosis, fatty infiltration of the liver, extensive atherosclerosis of the abdominal aorta and its branches, mild spinal canal stenosis at the level of T10-T11 and evidence of numerous sigmoid diverticulosis and questionable mild component of acute sigmoid diverticulitis and direct colonoscopic evaluation was recommended by the radiologist From the pulmonary standpoint, the patient is a chronic smoker and he has chronic exertional dyspnea and chronic congested cough. No hemoptysis. No pleurisy. No worsening shortness of breath. He can't recall a previous pneumonia back in 2016 involving the left lung base and he was hospitalized back then at [facility]. He was told that this was a severe pneumonia and he was very close to dying from this condition. He ultimately improved. Currently is no nausea or vomiting. Most of it abdominal pain. He is an alcohol drinker. He denies having to pass out from alcohol drinking. He denies having any seizure activity from alcohol drinking. He is currently on DT prophylaxis is also on nicotine patch. on 01/24/2018 the patient got transferred to the intensive care units. The patient early this morning at around 1 AM he became acutely short of breath. He became acutely hypoxic. Initially was on 2 L of oxygen by nasal cannula in progress with Dr. remigio morrison up and he was placed on the percent nonrebreather facemask. Subsequently was found to have labored breathing and rapid response team was called and the patient was placed on a BiPAP at a pressure of 12/5 cm of water with an FiO2 of 100%. Got transferred to the intensive care unit and his current pulse ox is around 91-92%. Chest x-ray shows significant abnormality and interval change compared to yesterday. There is significant amount of volume loss and interval development of atelectasis in the left lower lobe and some infiltration of the perihilar area and the left upper lobe. The patient is currently short of breath and tachypneic and in mild to moderate degree of respiratory distress even being on a BiPAP. As such have made decision to proceed with intubation and proceed with a bronchoscopic evaluation of the left lung. He may need the CAT scan of the chest repeated. He may need also to be placed on broad-spectrum antibiotics and I will restart him on a combination of Zosyn and Levaquin. His white cell count is not elevated. Is afebrile. The Benedict catheter was inserted and the urine output is diminished at this point in time. White cell count is at 6.1. Blood gases done this morning showed a pH of 7.33 with a pCO2 of 50 and pCO2 of 5700% nonrebreather facemask. He received a total of 2 units of packed RBC and hemoglobin today is 10.2. MRI of the spine was noted there is osseous structures and diffuse his energy his marrow signal and within the differential diagnoses there is a possibility of diffuse bony metastases. Patient was reevaluated today on 01/25/2018, in the ICU, on mechanical ventilation, ventilator settings are tidal volume of 400, FiO2 of 50%, assist control rate of 22, PEEP is 5. ABG is marginal with a pO2 of 78 pCO2 of 37 pH of 7.47. Patient remains on propofol is also on norepinephrine, 7 mcg/m, and propofol is 35 mcg/kg/m. Patient is arousable, follows simple instructions like wiggling toes, closing eyes, in spite of of low-dose propofol on board. Chest x-ray was reviewed, and it showed mostly a left lower lobe pneumonia left pleural effusion, and a small tiny right sided pleural effusion with atelectasis. His basic metabolic profile is normal except for low potassium of 3.1, being corrected, his CBC is relatively unremarkable. WBC count is 7.4 hemoglobin is 9.6. His hemoglobin is holding, patient received a total of 3 units of packed RBCs since admission. Patient is being followed by hematology/ oncology for what seems to be a picture of myeloproliferative disorder. Patient was reevaluated today on 01/26/2018, remains on mechanical ventilation, chest x-ray is showing worsening infiltrates in the right and left lower lobe, and bilateral pleural effusions. Patient remains on the same ventilator settings, however FiO2 was cut down to 40%, ABG showed a pO2 of 183 pCO2 of 34 pH of 7.50. Electrolytes and renal profile are normal. CBC is relatively normal, hemoglobin is holding at 8.9. Chest x-ray as noted earlier showing worsening bilateral pleural effusions and airspace disease in the lower lobes. Hence I have recommended Lasix to be given. In the meantime the patient is slowly waking up as we are slowly weaning down the propofol. Seems to follow simple instructions, but he seems to be generally weak. His norepinephrine is down to 2 mcg/m. Patient is still on antibiotics, bronchodilators, nutritional support, and I'm hoping we could consider a weaning trial on this patient today. Patient was reevaluated today on 01/27/2018, patient was extubated briefly yesterday, however shortly after I left the ICU, patient had a sudden episode of desaturation, although his initial ABG before extubation was excellent, and the patient had an excellent response to diuretics prior to extubation. Apparently the patient must have developed a mucous plug, and he was having difficulty clearing his secretions according to the nurse was taking care of the patient. Patient was immediately reintubated by [facility] [employer], and now he is back on mechanical ventilation. Ventilator settings today are assist control rate of 22 tidal volume of 400 FiO2 of 40%, PEEP is at 5. He is on propofol at 35 mcg/kg/m, he is also on norepinephrine at 1 mcg/m. ABG this morning showed a pO2 of 138 pCO2 of 40 pH of 7.48. Potassium is low at 2.0, corrected and repeat potassium was 3.7. Calcium is 6.4, however her albumin is 2.5. Renal profile is normal. CBC showed a WBC count of 6.5 hemoglobin of 8.8, holding nicely. Chest x-ray showed bilateral effusions and associated atelectasis. Hence more Lasix will be given today, and I would maintain him on Lasix at 40 mg IV push every 12 hours. No bowel movements in the last few days, hence the patient will be started on Reglan. Patient was seen by hematology on consultation, workup for multiple myeloma has been negative, and eventually the patient will need MRI of the lumbosacral spine. Patient was examined today in the ICU on 01/28/2018, remains on mechanical ventilation, patient is awake, seems to be alert oriented, follows simple instructions, yesterday he tolerated all modes good 6 hours of pressure support and CPAP, and he seems to be tolerating pressure support and CPAP well today as I'm watching the patient in the ICU. Chest x-ray continues to show bilateral pleural effusions, I recommended a stat ultrasound of the chest, and there is good sized right-sided pleural effusion which will be drained, and I have recommended to the patient that we go ahead and do thoracentesis. Patient is agreeable, and I plan to likely extubate the patient after the thoracentesis. His ventilator settings where tidal volume of 400 assist control rate of 22 FiO2 40% PEEP of 5. ABG this morning showed a pO2 of 111 he CO2 of 42 pH of 7.50. Hemoglobin is 9.2, holding nicely. Platelets are 341. Basic metabolic profile is normal renal profile is normal. Positive Hemoccult blood noted. But again his hemoglobin is holding nicely. Chest x-ray showed bilateral pleural effusions, right more so than left. Ultrasound confirmed, however the right-sided pleural effusion seems to be much larger than the left. And I plan to do a right-sided thoracentesis today. Reevaluated today on 01/29/2018, patient underwent a right-sided thoracentesis yesterday, followed by extubation from a pressure support mode of mechanical ventilation. Patient tolerated the extubation quite well. Continues to tolerate extubation today, his chest x-ray is significantly improved. Patient is feeling better, relatively asymptomatic. However he continues to have intermittently low blood pressure and he has been intermittently on a low dose of norepinephrine anywhere between 1-2 mcg/m. I will give him a fluid bolus today, and hopefully could get him off norepinephrine and possibly transfer him out of the ICU. Patient is feeling better overall, and he is in no form of respiratory distress at this point. CBC showed hemoglobin stable at 9.4. His electrolytes are normal renal profile is normal bicarb is 27. Potassium is 3.6. Continues to have some left lower lobe atelectasis and possible infiltrate in the left lower lobe with a small tiny left pleural effusion evaluated yesterday by ultrasound, and was not felt to be large enough to perform thoracentesis. Reevaluated today on 01/30/2018, patient tolerated extubation well over the last 2 days, he was actually extubated on 01/28/2018, blood pressure seems to be stabilizing, off norepinephrine, his mean arterial pressure is in the 70s. Patient is relatively asymptomatic, his labs were reviewed and his hemoglobin is 8.3, WBC count is 5 potassium is a bit low being corrected. Renal profile is normal. No chest x-ray was done today. Reevaluated today on 01/31/2018, patient continues to tolerate extubation over the last 3 days. He was extubated on 01/28/2018. Has not required any pressors for the last 2 days, patient is presently a selective overflow. Clinically the patient is doing well, denies any cough no wheezing no shortness of breath. CBC showed WBC 4.7 hemoglobin is 8.3. Basic metabolic profile is relatively normal. No chest x-ray was done today. Objective - Vital Signs Vital signs: Vital Signs Temp 98.6 F 01/31/18 07:00 Pulse 90 01/31/18 12:08 Resp 16 01/31/18 08:00 BP 106/71 01/31/18 08:00 Pulse Ox 100 01/31/18 07:00 Intake & Output 01/30/18 01/31/18 01/31/18 18:59 06:59 18:59 Intake Total 1000.5 762.5 Output Total 2500 1670 Balance -1499.5 -907.5 Weight 54.3 kg Intake: IV 400.5 262.5 Levofloxacin 750Mg-D5w 150 Pmx 750 mg In Dextrose/ Water 1 150ml.bag @ 100 mls/hr IVPB Q24H [facility] Rx#: [id number] Piperacillin-Tazobactam 3 87.5 12.5 .375 gm In Dextrose/Water 1 50ml.bag @ 12.5 mls/hr IVPB Q8HR [facility] Rx#: [id number] Sodium Chloride 0.9% 1, 130 250 000 ml @ 20 mls/hr IV . Q24H [facility] Rx#:[id number] pressure bag 33 Intake, IV Titration 350 Amount Magnesium Sulfate-D5w Pmx 200 1 gm In Dextrose/Water 1 100ml.bag @ 100 mls/hr IVPB Q1H [facility] Rx#: [id number] Potassium Chloride 20 meq 150 In Water For Injection 1 100ml.bag @ 50 mls/hr IVPB Q2H [facility] Rx#: [id number] Oral 250 500 Output: Urine 2500 1670 Other: Voiding Method Indwelling Catheter Indwelling Catheter # Voids 0 ABP, PAP, CO, CI - Last Documented Arterial Blood Pressure 93/57 - Exam Physical Exam: Revealed a 72-year-old white male, pleasant, asymptomatic, in no form of distress. Head: Atraumatic, normocephalic. HEENT:[Neck is supple.] [No neck masses.] [No thyromegaly.] [No JVD.] PERRLA, EOMI, moist mucous membranes Chest: Good breath sound bilaterally, no crackles or rhonchi or wheezes symmetrical chest expansion, no chest wall tenderness. Cardiac Exam: [Normal S1 and S2, no S3 gallop, no murmur.] Abdomen: [Soft, nontender, no megaly, no rebound, no guarding, normal bowel sounds.] Extremities: [No clubbing, no edema, no cyanosis.] Venodyne boots noted in both lower extremities. Neurological Exam: Generally weak otherwise no gross focal neurologic deficit Lymphatics: No lymphadenopathy. Psychiatric: Normal mood, affect, and mental status examination. - Labs CBC & Chem 7: 01/31/18 04:45 01/31/18 04:45 Labs: Abnormal Lab Results - Last 24 Hours (Table) 01/30/18 01/30/18 01/31/18 Range/Units 17:25 22:27 04:45 RBC 2.92 L (4.30-5.90) m/uL Hgb 8.3 L (13.0-17.5) gm/dL Hct 27.1 L (39.0-53.0) % MCHC 30.7 L (31.0-37.0) g/dL RDW 22.0 H (11.5-15.5) % Lymphocytes # 0.7 L (1.0-4.8) k/uL Sodium (137-145) mmol/L BUN (9-20) mg/dL Creatinine (0.66-1.25) mg/dL POC Glucose (mg/dL) 110 H 118 H (75-99) mg/dL Calcium (8.4-10.2) mg/dL 01/31/18 Range/Units 04:45 RBC (4.30-5.90) m/uL Hgb (13.0-17.5) gm/dL Hct (39.0-53.0) % MCHC (31.0-37.0) g/dL RDW (11.5-15.5) % Lymphocytes # (1.0-4.8) k/uL Sodium 134 L (137-145) mmol/L BUN 6 L (9-20) mg/dL Creatinine 0.49 L (0.66-1.25) mg/dL POC Glucose (mg/dL) (75-99) mg/dL Calcium 8.2 L (8.4-10.2) mg/dL Microbiology - Last 24 Hours (Table) 01/28/18 11:20 Gram Stain - Preliminary Pleural Fluid Body Fluid Culture - Preliminary Assessment and Plan Assessment: Impression: 1 acute hypoxic respiratory failure requiring intubation and mechanical ventilation, secondary to community-acquired pneumonia, resolved, patient was extubated uneventfully on 01/28 2 symptomatic anemia possible myeloproliferative disorder, being followed by heme/onc 3 chronic alcoholism 4 diffuse heterogeneous bone marrow signal, being addressed by hematology on the case. Workup for multiple myeloma was negative. 5 troponin leak, strongly doubt acute myocardial infarction. 6 frequent premature ventricular contractions 7 generalized weakness and debility, severe protein calorie malnutrition is suspected. Continue fall precautions 8 history of diverticulosis, there continues to concern about GI carcinoma, patient will eventually require further GI workup. 9 bilateral pleural effusions, exact etiology not clear, could be parapneumonic in nature. Thoracentesis was done on 01/28/2018 results of the pleural effusion reflected a transudate of pleural effusion. 10 possible sepsis and septic shock secondary to pneumonia as noted above. 11 status post extubation and reintubation on 01/26/2018. May have developed mucous plug and could not clear secretions, patient had to be reintubated shortly after he was extubated. 12 status post thoracentesis followed by extubation on 01/28/2018. Pleural effusion was noted to be transudative in nature Recommendation: Continue plans to transfer the patient to a monitor bed on selective, continue diuretics, antibiotics, bronchodilators, incentive spirometry, DVT and GI prophylaxis, may have to consider evaluation for rehab facility sometime next week. In the meantime the patient continues to have multiple complex medical issues being addressed accordingly. Follow-up chest x- ray in a.m. will be ordered. Time with Patient: Less than 30
[2018-01-31 17:09] LABS: Glucose,Whole Blood 125 mg/dL (75-99)
[2018-02-01 06:05] LABS: Anisocytosis Moderate; Basophils % (A) 1 %; Eosinophils # (A) 0.1 k/uL (0-0.7); Eosinophils % (A) 3 %; HCT 30.5 % (39.0-53.0); HGB 9.7 gm/dL (13.0-17.5); Hypochromasia Moderate; Lymphocytes # (A) 0.7 k/uL (1.0-4.8); Lymphocytes % (A) 17 %; MCH 29.3 pg (25.0-35.0); MCV 91.8 fL (80.0-100.0); Macrocytosis Slight; Mean Platelet Volume 7.4; Microcytosis Slight; Monocytes # (A) 0.4 k/uL (0-1.0); Monocytes % (A) 8 %; Neutrophils % (A) 68 %; Platelet Count 487 k/uL (150-450); Poikilocytosis Slight; RBC 3.32 m/uL (4.30-5.90); RDW 21.7 % (11.5-15.5); WBC 4.4 k/uL (3.8-10.6)
[2018-02-01 06:18] LABS: Anion Gap 6 mmol/L; Blood Urea Nitrogen 8 mg/dL (9-20); Calcium 8.7 mg/dL (8.4-10.2); Carbon Dioxide 32 mmol/L (22-30); Chloride 100 mmol/L (98-107); Glucose 90 mg/dL (74-99); Phosphorus 4.8 mg/dL (2.5-4.5); Potassium 4.2 mmol/L (3.5-5.1); Sodium 138 mmol/L (137-145)
--- NOTE | 2018-02-01 08:01 | XR ---
EXAMINATION TYPE: XR chest 1V portable DATE OF EXAM: 02/01/2018 CLINICAL HISTORY: Difficulty breathing, pneumonia/pleural effusion progress study. TECHNIQUE: Single AP portable upright view of the chest is obtained. COMPARISON: Chest x-ray from 3 days earlier and older studies. CT January 22, 2018. FINDINGS: There is background chronic emphysematous change. There is interval improvement in left ba silar opacity. Right lung remains clear. Cardiac silhouette size is stable and within normal limits w ith atherosclerotic thoracic aorta. Calcified nodules or granulomas right lower lobe are redemonstrat ed. Osseous structures are intact. IMPRESSION: Resolving left lower lung infiltrate and/or atelectasis and small left effusion. No new i nfiltrate is seen.
--- NOTE | 2018-02-01 08:49 | P.PN ---
Subjective Progress Note Date: 02/01/18 Principal diagnosis: Acute hypoxic respiratory failure secondary to left lower lobe pneumonia, left parapneumonic pleural effusion, anemia and septic shock This is a 72-year-old male patient, a chronic smoker, a chronic alcoholic, came into the hospital as the patient was becoming progressively weak to the point where he was unable to perform activities of daily today life. He came in to the emergency with generalized weakness, falling to the ground and he was unable to recover himself. Nevertheless there was no loss of consciousness or syncope. The patient in the emergency department was seen and evaluated. CAT scan of the brain was done that showed age-related atrophy and some chronic sinusitis. Chest x-ray was consistent with pulmonary granulomas consistent with old infection. The patient was found to profoundly anemic with a hemoglobin of 5.5. Troponin was minimally elevated at 0.1. The patient got transfused with packed RBC. Subsequently the patient got admitted to the medical floor and pulmonary consultation was requested knowing that the patient had a CAT scan of the chest and the findings were abnormal. Note that the patient had a full CAT scan of the chest abdomen and pelvis. CAT scan of the chest showed a limited air bronchogram involving the superior segment of the left lower lobe along with some fluid within the interlobar fissure in addition to small bibasilar pulmonary effusions. There is advanced background emphysema in addition to apical scarring and pulmonary granulomas 2 of them are seen on the right. There is also evidence of segmental compression atelectasis in lung bases bilaterally. The tracheobronchial tree was patent. Mediastinum showed some old mediastinal lymph node calcification suggestive of prior granulomatous disease. No pericardial effusion. Also, the patient showed hepatic steatosis, fatty infiltration of the liver, extensive atherosclerosis of the abdominal aorta and its branches, mild spinal canal stenosis at the level of T10-T11 and evidence of numerous sigmoid diverticulosis and questionable mild component of acute sigmoid diverticulitis and direct colonoscopic evaluation was recommended by the radiologist From the pulmonary standpoint, the patient is a chronic smoker and he has chronic exertional dyspnea and chronic congested cough. No hemoptysis. No pleurisy. No worsening shortness of breath. He can't recall a previous pneumonia back in 2016 involving the left lung base and he was hospitalized back then at [facility]. He was told that this was a severe pneumonia and he was very close to dying from this condition. He ultimately improved. Currently is no nausea or vomiting. Most of it abdominal pain. He is an alcohol drinker. He denies having to pass out from alcohol drinking. He denies having any seizure activity from alcohol drinking. He is currently on DT prophylaxis is also on nicotine patch. on 01/24/2018 the patient got transferred to the intensive care units. The patient early this morning at around 1 AM he became acutely short of breath. He became acutely hypoxic. Initially was on 2 L of oxygen by nasal cannula in progress with Dr. remigio morrison up and he was placed on the percent nonrebreather facemask. Subsequently was found to have labored breathing and rapid response team was called and the patient was placed on a BiPAP at a pressure of 12/5 cm of water with an FiO2 of 100%. Got transferred to the intensive care unit and his current pulse ox is around 91-92%. Chest x-ray shows significant abnormality and interval change compared to yesterday. There is significant amount of volume loss and interval development of atelectasis in the left lower lobe and some infiltration of the perihilar area and the left upper lobe. The patient is currently short of breath and tachypneic and in mild to moderate degree of respiratory distress even being on a BiPAP. As such have made decision to proceed with intubation and proceed with a bronchoscopic evaluation of the left lung. He may need the CAT scan of the chest repeated. He may need also to be placed on broad-spectrum antibiotics and I will restart him on a combination of Zosyn and Levaquin. His white cell count is not elevated. Is afebrile. The Benedict catheter was inserted and the urine output is diminished at this point in time. White cell count is at 6.1. Blood gases done this morning showed a pH of 7.33 with a pCO2 of 50 and pCO2 of 5700% nonrebreather facemask. He received a total of 2 units of packed RBC and hemoglobin today is 10.2. MRI of the spine was noted there is osseous structures and diffuse his energy his marrow signal and within the differential diagnoses there is a possibility of diffuse bony metastases. Patient was reevaluated today on 01/25/2018, in the ICU, on mechanical ventilation, ventilator settings are tidal volume of 400, FiO2 of 50%, assist control rate of 22, PEEP is 5. ABG is marginal with a pO2 of 78 pCO2 of 37 pH of 7.47. Patient remains on propofol is also on norepinephrine, 7 mcg/m, and propofol is 35 mcg/kg/m. Patient is arousable, follows simple instructions like wiggling toes, closing eyes, in spite of of low-dose propofol on board. Chest x-ray was reviewed, and it showed mostly a left lower lobe pneumonia left pleural effusion, and a small tiny right sided pleural effusion with atelectasis. His basic metabolic profile is normal except for low potassium of 3.1, being corrected, his CBC is relatively unremarkable. WBC count is 7.4 hemoglobin is 9.6. His hemoglobin is holding, patient received a total of 3 units of packed RBCs since admission. Patient is being followed by hematology/ oncology for what seems to be a picture of myeloproliferative disorder. Patient was reevaluated today on 01/26/2018, remains on mechanical ventilation, chest x-ray is showing worsening infiltrates in the right and left lower lobe, and bilateral pleural effusions. Patient remains on the same ventilator settings, however FiO2 was cut down to 40%, ABG showed a pO2 of 183 pCO2 of 34 pH of 7.50. Electrolytes and renal profile are normal. CBC is relatively normal, hemoglobin is holding at 8.9. Chest x-ray as noted earlier showing worsening bilateral pleural effusions and airspace disease in the lower lobes. Hence I have recommended Lasix to be given. In the meantime the patient is slowly waking up as we are slowly weaning down the propofol. Seems to follow simple instructions, but he seems to be generally weak. His norepinephrine is down to 2 mcg/m. Patient is still on antibiotics, bronchodilators, nutritional support, and I'm hoping we could consider a weaning trial on this patient today. Patient was reevaluated today on 01/27/2018, patient was extubated briefly yesterday, however shortly after I left the ICU, patient had a sudden episode of desaturation, although his initial ABG before extubation was excellent, and the patient had an excellent response to diuretics prior to extubation. Apparently the patient must have developed a mucous plug, and he was having difficulty clearing his secretions according to the nurse was taking care of the patient. Patient was immediately reintubated by APPRENTICE COSMETOLOGIST, and now he is back on mechanical ventilation. Ventilator settings today are assist control rate of 22 tidal volume of 400 FiO2 of 40%, PEEP is at 5. He is on propofol at 35 mcg/kg/m, he is also on norepinephrine at 1 mcg/m. ABG this morning showed a pO2 of 138 pCO2 of 40 pH of 7.48. Potassium is low at 2.0, corrected and repeat potassium was 3.7. Calcium is 6.4, however her albumin is 2.5. Renal profile is normal. CBC showed a WBC count of 6.5 hemoglobin of 8.8, holding nicely. Chest x-ray showed bilateral effusions and associated atelectasis. Hence more Lasix will be given today, and I would maintain him on Lasix at 40 mg IV push every 12 hours. No bowel movements in the last few days, hence the patient will be started on Reglan. Patient was seen by hematology on consultation, workup for multiple myeloma has been negative, and eventually the patient will need MRI of the lumbosacral spine. Patient was examined today in the ICU on 01/28/2018, remains on mechanical ventilation, patient is awake, seems to be alert oriented, follows simple instructions, yesterday he tolerated all modes good 6 hours of pressure support and CPAP, and he seems to be tolerating pressure support and CPAP well today as I'm watching the patient in the ICU. Chest x-ray continues to show bilateral pleural effusions, I recommended a stat ultrasound of the chest, and there is good sized right-sided pleural effusion which will be drained, and I have recommended to the patient that we go ahead and do thoracentesis. Patient is agreeable, and I plan to likely extubate the patient after the thoracentesis. His ventilator settings where tidal volume of 400 assist control rate of 22 FiO2 40% PEEP of 5. ABG this morning showed a pO2 of 111 he CO2 of 42 pH of 7.50. Hemoglobin is 9.2, holding nicely. Platelets are 341. Basic metabolic profile is normal renal profile is normal. Positive Hemoccult blood noted. But again his hemoglobin is holding nicely. Chest x-ray showed bilateral pleural effusions, right more so than left. Ultrasound confirmed, however the right-sided pleural effusion seems to be much larger than the left. And I plan to do a right-sided thoracentesis today. Reevaluated today on 01/29/2018, patient underwent a right-sided thoracentesis yesterday, followed by extubation from a pressure support mode of mechanical ventilation. Patient tolerated the extubation quite well. Continues to tolerate extubation today, his chest x-ray is significantly improved. Patient is feeling better, relatively asymptomatic. However he continues to have intermittently low blood pressure and he has been intermittently on a low dose of norepinephrine anywhere between 1-2 mcg/m. I will give him a fluid bolus today, and hopefully could get him off norepinephrine and possibly transfer him out of the ICU. Patient is feeling better overall, and he is in no form of respiratory distress at this point. CBC showed hemoglobin stable at 9.4. His electrolytes are normal renal profile is normal bicarb is 27. Potassium is 3.6. Continues to have some left lower lobe atelectasis and possible infiltrate in the left lower lobe with a small tiny left pleural effusion evaluated yesterday by ultrasound, and was not felt to be large enough to perform thoracentesis. Reevaluated today on 01/30/2018, patient tolerated extubation well over the last 2 days, he was actually extubated on 01/28/2018, blood pressure seems to be stabilizing, off norepinephrine, his mean arterial pressure is in the 70s. Patient is relatively asymptomatic, his labs were reviewed and his hemoglobin is 8.3, WBC count is 5 potassium is a bit low being corrected. Renal profile is normal. No chest x-ray was done today. Reevaluated today on 01/31/2018, patient continues to tolerate extubation over the last 3 days. He was extubated on 01/28/2018. Has not required any pressors for the last 2 days, patient is presently a selective overflow. Clinically the patient is doing well, denies any cough no wheezing no shortness of breath. CBC showed WBC 4.7 hemoglobin is 8.3. Basic metabolic profile is relatively normal. No chest x-ray was done today. On 02/01/2018 patient seen along in the intensive care unit. Patient was extubated back on January 28, he is currently on room air, in no acute distress , his IV fluids have been hep-locked. He is now on selective overflow patient. Awake and alert, answering questions appropriately. Chest x-ray has been reviewed, and shows COPD, and atelectasis at the left base. Patient had a right thoracentesis on 01/28/2018 with 600 mL of pleural fluid drained. Patient also underwent bronchoscopy with BAL back on 01/24/2018, cultures are negative. Pleural fluid analysis revealed transudative pleural fluid. Today's labs have been reviewed, WBCs 4.4, hemoglobin is 9.7, electrolytes and renal profile are relatively unremarkable, with a CO2 at 32. Pulse ox on room air is 94%, patient is afebrile, hemodynamically stable. Objective - Vital Signs Vital signs: Vital Signs Temp 97.8 F 02/01/18 04:00 Pulse 89 02/01/18 06:00 Resp 19 02/01/18 06:00 BP 95/72 02/01/18 06:00 Pulse Ox 94 L 02/01/18 04:00 Intake & Output 01/31/18 02/01/18 02/01/18 18:59 06:59 18:59 Intake Total 520 20 Output Total 600 500 Balance -80 -480 Weight 54.3 kg Intake: IV 40 20 Sodium Chloride 0.9% 1, 40 20 000 ml @ 20 mls/hr IV . Q24H [facility] Rx#:[id number] Oral 480 Output: Urine 600 500 Other: Voiding Method Indwelling Catheter # Voids 0 ABP, PAP, CO, CI - Last Documented Arterial Blood Pressure 93/57 - Exam GENERAL EXAM: Alert, 72-year-old ill-looking white male comfortable in no apparent distress. HEAD: Normocephalic/atraumatic. EYES: Normal reaction of pupils, equal size. Conjunctiva pink, sclera white. NOSE: Clear with pink turbinates. THROAT: No erythema or exudates. NECK: No masses, no JVD, no thyroid enlargement, no adenopathy. CHEST: No chest wall deformity. Symmetrical expansion. LUNGS: Equal air entry with no crackles, wheeze, rhonchi or dullness. CVS: Regular rate and rhythm, normal S1 and S2, no gallops, no murmurs, no rubs ABDOMEN: Soft, nontender. No hepatosplenomegaly, normal bowel sounds, no guarding or rigidity. EXTREMITIES: No clubbing, no edema, no cyanosis, 2+ pulses and upper and lower extremities. MUSCULOSKELETAL: Muscle strength and tone normal. SPINE: No scoliosis or deformity SKIN: No rashes CENTRAL NERVOUS SYSTEM: Alert and oriented -3. No focal deficits, tone is normal in all 4 extremities. PSYCHIATRIC: Alert and oriented -3. Appropriate affect. Intact judgment and insight. - Labs CBC & Chem 7: 02/01/18 05:52 02/01/18 05:52 Labs: Abnormal Lab Results - Last 24 Hours (Table) 01/31/18 02/01/18 02/01/18 Range/Units 16:57 05:52 05:52 RBC 3.32 L (4.30-5.90) m/uL Hgb 9.7 L (13.0-17.5) gm/dL Hct 30.5 L (39.0-53.0) % RDW 21.7 H (11.5-15.5) % Plt Count 487 H (150-450) k/uL Lymphocytes # 0.7 L (1.0-4.8) k/uL Carbon Dioxide 32 H (22-30) mmol/L BUN 8 L (9-20) mg/dL Creatinine 0.64 L (0.66-1.25) mg/dL POC Glucose (mg/dL) 125 H (75-99) mg/dL Phosphorus 4.8 H (2.5-4.5) mg/dL Microbiology - Last 24 Hours (Table) 01/28/18 11:20 Gram Stain - Preliminary Pleural Fluid Body Fluid Culture - Preliminary Assessment and Plan Plan: Assessment: 1 acute hypoxic respiratory failure requiring intubation and mechanical ventilation, secondary to community-acquired pneumonia, resolved, patient was extubated uneventfully on 01/28 2 symptomatic anemia possible myeloproliferative disorder, being followed by heme/onc 3 chronic alcoholism 4 diffuse heterogeneous bone marrow signal, being addressed by hematology on the case. Workup for multiple myeloma was negative. 5 troponin leak, strongly doubt acute myocardial infarction. 6 frequent premature ventricular contractions 7 generalized weakness and debility, severe protein calorie malnutrition is suspected. Continue fall precautions 8 history of diverticulosis, there continues to concern about GI carcinoma, patient will eventually require further GI workup. 9 bilateral pleural effusions, exact etiology not clear, could be parapneumonic in nature. Thoracentesis was done on 01/28/2018 results of the pleural effusion reflected a transudate of pleural effusion. 10 possible sepsis and septic shock secondary to pneumonia as noted above. 11 status post extubation and reintubation on 01/26/2018. May have developed mucous plug and could not clear secretions, patient had to be reintubated shortly after he was extubated. 12 status post thoracentesis followed by extubation on 01/28/2018. Pleural effusion was noted to be transudative in nature Plan: Continue current plan of treatment, will await the results of the final pleural fluid and BAL cultures, continue with current antibiotic coverage. Patient is doing well, on room air, IV fluids have been hep-locked. Increase activity as tolerated, encourage incentive spirometry. Today's chest x-ray has been reviewed, just showed left base atelectasis. I performed a history & physical examination of the patient and discussed their management with my nurse practitioner, Kaelyn Lamar. I reviewed the nurse practitioner's note and agree with the documented findings and plan of care. Lung sounds are clear. The findings and the impression was discussed with the patient. I attest to the documentation by the nurse practitioner. Time with Patient: Greater than 30
[2018-02-01] MEDS: NICOTINE 21MG/24HR PATCH TRANSDERM SCH (09:06)
[2018-02-01] MEDS: PANTOPRAZOLE 40 MG/10 ML VIAL IV SCH (09:06)
[2018-02-01] MEDS: guaiFENesin 600 MG TABLET.ER PO SCH ×2 (09:14→22:06)
[2018-02-01] MEDS: LEVOFLOXACIN 750MG-D5W PMX 750 MG in DEXTROSE/WATER 1 150ML.BAG IVPB SCH (09:14)
[2018-02-01] MEDS: FUROSEMIDE 40 MG TAB PO SCH ×2 (09:14→16:17)
--- NOTE | 2018-02-01 09:20 | P.PN ---
Subjective Progress Note Date: 02/01/18 Patient is awake and alert today. No acute events overnight reported by nursing staff. Patient himself does not have any complaints. He denies shortness of breath. Objective - Vital Signs Vital signs: Vital Signs Temp 97.5 F L 02/01/18 08:00 Pulse 90 02/01/18 08:00 Resp 62 H 02/01/18 08:00 BP 125/71 02/01/18 08:00 Pulse Ox 95 02/01/18 08:00 Intake & Output 01/31/18 02/01/18 02/01/18 18:59 06:59 18:59 Intake Total 520 20 0 Output Total 600 500 Balance -80 -480 0 Weight 54.3 kg 54.4 kg Intake: IV 40 20 0 Sodium Chloride 0.9% 1, 40 20 0 000 ml @ 20 mls/hr IV . Q24H [facility] Rx#:[id number] Oral 480 Output: Urine 600 500 Other: Voiding Method Indwelling Catheter # Voids 0 1 # Bowel Movements 1 ABP, PAP, CO, CI - Last Documented Arterial Blood Pressure 93/57 - Exam General: The patient is awake and alert, in no distress Eye: there is normal conjunctiva bilaterally. Neck: The neck is supple, there is no JVD. Cardiovascular: Normal S1-S2, no S3-S4, no murmurs. Respiratory: Lungs clear to auscultation bilaterally Gastrointestinal: Abdomen is soft, nontender Musculoskeletal: There is no pedal edema. Neurological:. Speech is normal. Skin: Skin is warm and dry - Labs CBC & Chem 7: 02/01/18 05:52 02/01/18 05:52 Labs: Abnormal Lab Results - Last 24 Hours (Table) 01/31/18 02/01/18 02/01/18 Range/Units 16:57 05:52 05:52 RBC 3.32 L (4.30-5.90) m/uL Hgb 9.7 L (13.0-17.5) gm/dL Hct 30.5 L (39.0-53.0) % RDW 21.7 H (11.5-15.5) % Plt Count 487 H (150-450) k/uL Lymphocytes # 0.7 L (1.0-4.8) k/uL Carbon Dioxide 32 H (22-30) mmol/L BUN 8 L (9-20) mg/dL Creatinine 0.64 L (0.66-1.25) mg/dL POC Glucose (mg/dL) 125 H (75-99) mg/dL Phosphorus 4.8 H (2.5-4.5) mg/dL Microbiology - Last 24 Hours (Table) 01/28/18 11:20 Gram Stain - Preliminary Pleural Fluid Body Fluid Culture - Preliminary Assessment and Plan Assessment: 1. Sigmoid diverticulitis: With possible submucosal abscess vs mass. Given L spine MRI and severe anemia, there is concern for a GI cancer. Patient was started on Zosyn and Levoloxacin IV. Zosyn was discontinued and currently on Levaquin. Gastroenterology on board - plans for EGD and C-scope when able. FU GI. 2. Symptomatic anemia: s/p 3 units PRBC. FOBT +. Iron studies are consistent with anemia of chronic disease. TSH, Folate and B12 are within normal limits. LDH elevated, indicating hemolysis. 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 Patient is pending EGD and C-scope. Daily CBC. FU Hematology, outPT BM Bx if workup unrevealing. 3. Acute respiratory failure with hypoxia: Thought to be secondary to mucous plugging. Patient required intubation and mechanical ventilation during this admission. Extubated successfully on 01/28. Pulmonology following closely. s/p thoracentesis 01/28/2018, pleural Cx currently negative. BAL Cx negative. Continue Lasix 40 mg BID, DuoNeb scheduled and PRN. FU Pleural Cx (final), 4. LLL Pneumonia: Patient is afebrile with no leukocytosis. Previous CXR with concerns of LLL PNA. BAL Cx negative. Continue Levofloxacin 750 mg IV QD, Incentive spirometry. HOB elevation. FU Pulmonology, 5. 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 Neurology consulted - weakness thought to be due to malnutrition, hypoK and severe anemia. CPK within normal limits. Fall precautions. FU Neurology, PT/OT 6. Troponemia: Trop 0.14 x 2, 0.10, with EKG showing SR with PVC. Echocardiogram shows EF of 55-60%. No further testing at this time. 7. Polysubstance abuse: EtOH and tobacco. Continue MVI 1 tab PO QD, Folic acid 1 mg PO QD, Thiamine 100 mg PO BID. CIWA protocol. Ativan IV PRN for WD. Nicotine patch. 8. Protein calorie malnutrition: BMI 17.2 FU Dietitian 9. DVT/GI Prophylaxis: Protonix 40 mg IV QD. Today, I reviewed his medication list and lab work results. I discussed plan of care with nursing staff. Patient is currently subjective care overflow awaiting bed availability. PT/OT evaluation. Appreciate building consultant's recommendations. Repeat lab work in the morning.
[2018-02-01] MEDS: IPRATROPIUM-ALBUTEROL 3 ML NEB INHALATION SCH ×4 (09:57→19:43)
--- NOTE | 2018-02-01 10:10 | P.PN ---
Subjective Progress Note Date: 02/01/18 Principal diagnosis: Anemia 72-year-old gentleman admitted with left lower lobe pneumonia with septic shock , severe symptomatic anemia hemoglobin of 5.5 requiring 2 units of blood. Received total of 3 units of blood since admission. CT abdomen and pelvis reported thickening of the sigmoid colon underlying lesion could not be excluded. Status post bronchoscopy and thoracentesis. Nursing reports no evidence of hematemesis hematochezia or melena. Passing nonbloody bowel movements. Hemoglobin 9.7. Denies abdominal pain. Objective - Vital Signs Vital signs: Vital Signs Temp 97.5 F L 02/01/18 08:00 Pulse 100 02/01/18 10:07 Resp 62 H 02/01/18 08:00 BP 125/71 02/01/18 08:00 Pulse Ox 95 02/01/18 09:59 Intake & Output 01/31/18 02/01/18 02/01/18 18:59 06:59 18:59 Intake Total 520 20 0 Output Total 600 500 Balance -80 -480 0 Weight 54.3 kg 54.4 kg Intake: IV 40 20 0 Sodium Chloride 0.9% 1, 40 20 0 000 ml @ 20 mls/hr IV . Q24H [facility] Rx#:[id number] Oral 480 Output: Urine 600 500 Other: Voiding Method Indwelling Catheter # Voids 0 1 # Bowel Movements 1 ABP, PAP, CO, CI - Last Documented Arterial Blood Pressure 93/57 - Exam General appearance: The patient is awake alert in no acute distress. HET: Head is normocephalic and atraumatic. Pupils are equal and reactive. Oropharynx is clear without lesions. Neck: Supple without lymphadenopathy. Trachea midline. Heart: S1 S2. Regular rate and rhythm. Lungs: No crackles or wheezes are heard. Abdomen: Soft, nontender, nondistended with bowel sounds. No peritoneal signs. No palpable organomegaly or masses. - Labs CBC & Chem 7: 02/01/18 05:52 02/01/18 05:52 Labs: Abnormal Lab Results - Last 24 Hours (Table) 01/31/18 02/01/18 02/01/18 Range/Units 16:57 05:52 05:52 RBC 3.32 L (4.30-5.90) m/uL Hgb 9.7 L (13.0-17.5) gm/dL Hct 30.5 L (39.0-53.0) % RDW 21.7 H (11.5-15.5) % Plt Count 487 H (150-450) k/uL Lymphocytes # 0.7 L (1.0-4.8) k/uL Carbon Dioxide 32 H (22-30) mmol/L BUN 8 L (9-20) mg/dL Creatinine 0.64 L (0.66-1.25) mg/dL POC Glucose (mg/dL) 125 H (75-99) mg/dL Phosphorus 4.8 H (2.5-4.5) mg/dL Microbiology - Last 24 Hours (Table) 01/28/18 11:20 Gram Stain - Preliminary Pleural Fluid Body Fluid Culture - Preliminary Assessment and Plan Assessment: Impression: 1. Acute respiratory failure secondary to severe pneumonia mucous plug status post extubation and bronchoscopy. Thoracentesis yesterday 600 mL removed. 2. Severe symptomatic anemia CT imaging reported thickening of the sigmoid colon and underlying mucosal lesion could not be excluded. Presently no active GI bleeding. 3. Alcohol abuse. Plan: 1. Continue symptomatic supportive measures. Clear liquids today. EGD colonoscopy tomorrow. Continue to monitor CBC closely. Assessment and plan of care discussed with Dr. Noriega
[2018-02-01 11:58] LABS: Glucose,Whole Blood 113 mg/dL (75-99)
[2018-02-01] MEDS: SODIUM CHLORIDE 0.9% 1,000 ML IV SCH (16:00)
[2018-02-01] MEDS: THIAMINE 100 MG TAB PO SCH ×2 (16:03→22:06)
[2018-02-01] MEDS: MULTIVITAMINS, THERA 1 EACH TAB PO SCH (16:03)
[2018-02-01] MEDS: FOLIC ACID 1 MG TAB PO SCH (16:03)
[2018-02-01] MEDS: PEG 3350-NA SULF,BICARB,CL/KCL 4,000 ML BOTTLE PO ONE ×2 (16:34→22:06)
[2018-02-01 17:38] LABS: Glucose,Whole Blood 238 mg/dL (75-99)
[2018-02-01 17:41] LABS: Glucose,Whole Blood 143 mg/dL (75-99)
[2018-02-01 21:09] LABS: Glucose,Whole Blood 130 mg/dL (75-99)
[2018-02-02 05:19] LABS: Anisocytosis Moderate; Basophils # (A) 0.1 k/uL (0-0.2); Basophils % (A) 1 %; Eosinophils # (A) 0.2 k/uL (0-0.7); Eosinophils % (A) 3 %; HCT 30.2 % (39.0-53.0); HGB 9.2 gm/dL (13.0-17.5); Hypochromasia Moderate; Lymphocytes # (A) 0.8 k/uL (1.0-4.8); Lymphocytes % (A) 14 %; MCH 28.5 pg (25.0-35.0); MCHC 30.6 g/dL (31.0-37.0); Macrocytosis Slight; Mean Platelet Volume 7.3; Microcytosis Slight; Monocytes # (A) 0.3 k/uL (0-1.0); Monocytes % (A) 6 %; Neutrophils # (A) 4.1 k/uL (1.3-7.7); Neutrophils % (A) 73 %; Platelet Count 488 k/uL (150-450); Poikilocytosis Slight; RBC 3.25 m/uL (4.30-5.90); RDW 21.7 % (11.5-15.5); WBC 5.6 k/uL (3.8-10.6)
[2018-02-02 05:29] LABS: Anion Gap 7 mmol/L; Blood Urea Nitrogen 9 mg/dL (9-20); Calcium 8.5 mg/dL (8.4-10.2); Carbon Dioxide 28 mmol/L (22-30); Chloride 99 mmol/L (98-107); Glucose 97 mg/dL (74-99); Magnesium 1.8 mg/dL (1.6-2.3); Potassium 4.2 mmol/L (3.5-5.1); Sodium 134 mmol/L (137-145)
[2018-02-02] MEDS ORDERED: MAGNESIUM SULFATE-D5W PMX 1 GM in DEXTROSE/WATER 1 100ML.BAG IVPB SCH (06:00)
--- NOTE | 2018-02-02 07:31 | P.PN ---
Subjective Progress Note Date: 02/02/18 Principal diagnosis: Anemia, lactic acidemia. Progress note dated 02/02/2018 This is a 72-year-old male with a history of acute hypoxemic respiratory failure requiring intubation and mechanical ventilation secondary to community acquired pneumonia. He was eventually extubated on January 28. In addition, he has a history of symptomatic anemia likely secondary to myeloproliferative disorder, chronic alcohol abuse, frequent PVCs, generalized weakness and general medical debility, diverticulosis, bilateral pleural effusions, with previous thoracentesis done on January 28, sepsis/septic shock with lactic acidemia, and multiple other medical problems and comorbidities. The patient's currently not receiving any supplemental oxygen. His IV is a saline IV at 20 mL an hour. He is scheduled for colonoscopy today. The patient is very cachectic and weak appearing. He somewhat pale. He denies any chest pain or chest discomfort. He denies any abdominal discomfort. He also denies any difficulty breathing and shortness breath cough wheezing or phlegm production. Microbiologic studies are negative. Chest x-ray from February 01 shows resolving left lower lobe infiltrate/pneumonia. White count 5.6, hemoglobin 9.2 , hematocrit 30.2, and platelet count 488,000. Sodium 134, potassium 4.2, chloride 99, CO2 28, BUN 9 and creatinine 0.62. Anion gap is normal. Objective - Vital Signs Vital signs: Vital Signs Temp 97.9 F 02/02/18 04:00 Pulse 76 02/02/18 04:00 Resp 20 02/02/18 04:00 BP 117/84 02/02/18 04:00 Pulse Ox 94 L 02/02/18 04:00 Intake & Output 02/01/18 02/02/18 02/02/18 18:59 06:59 18:59 Intake Total 380 1860 Output Total 725 Balance -345 1860 Weight 54.4 kg 50 kg Intake: IV 140 240 Sodium Chloride 0.9% 1, 140 240 000 ml @ 20 mls/hr IV . Q24H [facility] Rx#:[id number] Oral 240 1620 Output: Urine 725 Other: Voiding Method Incontinent Incontinent # Voids 1 2 # Bowel Movements 1 2 ABP, PAP, CO, CI - Last Documented Arterial Blood Pressure 93/57 - Exam No acute distress, oriented 3. Very debilitated and cachectic appearing. HEENT examination is grossly unremarkable. Mucous membranes are moist. No oral lesions. Neck supple. Full range of motion. No adenopathy thyromegaly or neck vein distention. Cardiovascular examination reveals regular rhythm rate. S1-S2 normal. No S3 or S4. No discernible murmur noted. Heart sounds are distant. Lungs reveal mostly clear breath sounds. A few scattered rhonchi noted. No wheezes. No crackles. Breath sounds are equal bilaterally but diminished throughout. Abdomen soft bowel sounds are heard. No masses or tenderness. Extremities are intact. No cyanosis clubbing or edema. Skin is without rash or lesion. Neurologic examination is brief but nonfocal. - Labs CBC & Chem 7: 02/02/18 04:29 02/02/18 04:29 Labs: Abnormal Lab Results - Last 24 Hours (Table) 02/01/18 02/01/18 02/01/18 Range/Units 11:47 17:35 17:40 RBC (4.30-5.90) m/uL Hgb (13.0-17.5) gm/dL Hct (39.0-53.0) % MCHC (31.0-37.0) g/dL RDW (11.5-15.5) % Plt Count (150-450) k/uL Lymphocytes # (1.0-4.8) k/uL Sodium (137-145) mmol/L Creatinine (0.66-1.25) mg/dL POC Glucose (mg/dL) 113 H 238 H 143 H (75-99) mg/dL 02/01/18 02/02/18 02/02/18 Range/Units 21:08 04:29 04:29 RBC 3.25 L (4.30-5.90) m/uL Hgb 9.2 L (13.0-17.5) gm/dL Hct 30.2 L (39.0-53.0) % MCHC 30.6 L (31.0-37.0) g/dL RDW 21.7 H (11.5-15.5) % Plt Count 488 H (150-450) k/uL Lymphocytes # 0.8 L (1.0-4.8) k/uL Sodium 134 L (137-145) mmol/L Creatinine 0.62 L (0.66-1.25) mg/dL POC Glucose (mg/dL) 130 H (75-99) mg/dL Microbiology - Last 24 Hours (Table) 01/28/18 11:20 Gram Stain - Final Pleural Fluid Body Fluid Culture - Final Assessment and Plan Assessment: Assessment Acute hypoxemic respiratory failure secondary to community-acquired pneumonia, requiring intubation and mechanical ventilation with subsequent final extubation on January 28 Symptomatic anemia, possibly secondary to myeloproliferative disorder 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 Respiratory status seems to be reasonably stable. The patient is receiving a basic IV of saline at 20 mL an hour. The patient is apparently scheduled for a colonoscopy today to evaluate the GI tract and possible source of blood loss causing his anemia. The patient's labs medications and x-rays are reviewed. We will continue to follow. Prognosis is guarded. The patient appears to be very frail. Current microbiologic studies are negative. Critical care time 31 minutes Time with Patient: Greater than 30
[2018-02-02] MEDS: IPRATROPIUM-ALBUTEROL 3 ML NEB INHALATION SCH ×4 (08:12→20:42)
[2018-02-02] MEDS ORDERED: LEVOFLOXACIN 750 MG TAB PO SCH (09:00)
[2018-02-02] MEDS: PANTOPRAZOLE 40 MG/10 ML VIAL IV SCH (09:17)
[2018-02-02] MEDS: FUROSEMIDE 40 MG TAB PO SCH ×2 (09:18→18:36)
[2018-02-02] MEDS: guaiFENesin 600 MG TABLET.ER PO SCH ×2 (09:18→21:32)
[2018-02-02] MEDS: SODIUM CHLORIDE 0.9% 1,000 ML IV SCH (09:31)
[2018-02-02] MEDS ORDERED: LEVOFLOXACIN 750MG-D5W PMX 750 MG in DEXTROSE/WATER 1 150ML.BAG IVPB SCH (10:00)
--- NOTE | 2018-02-02 10:43 | P.PN ---
Subjective Progress Note Date: 02/02/18 Patient is doing well today. No acute events overnight. He was prepped for scheduled colonoscopy today. Objective - Vital Signs Vital signs: Vital Signs Temp 97.9 F 02/02/18 04:00 Pulse 91 02/02/18 08:26 Resp 20 02/02/18 04:00 BP 117/84 02/02/18 04:00 Pulse Ox 94 L 02/02/18 04:00 Intake & Output 02/01/18 02/02/18 02/02/18 18:59 06:59 18:59 Intake Total 380 1860 Output Total 725 Balance -345 1860 Weight 54.4 kg 50 kg Intake: IV 140 240 Sodium Chloride 0.9% 1, 140 240 000 ml @ 20 mls/hr IV . Q24H [facility] Rx#:[id number] Oral 240 1620 Output: Urine 725 Other: Voiding Method Incontinent Incontinent # Voids 1 2 # Bowel Movements 1 2 ABP, PAP, CO, CI - Last Documented Arterial Blood Pressure 93/57 - Exam General: The patient is awake and alert, in no distress Eye: there is normal conjunctiva bilaterally. Neck: The neck is supple, there is no JVD. Cardiovascular: Normal S1-S2, no S3-S4, no murmurs. Respiratory: Lungs clear to auscultation bilaterally Gastrointestinal: Abdomen is soft, nontender Musculoskeletal: There is no pedal edema. Neurological:. Speech is normal. Skin: Skin is warm and dry - Labs CBC & Chem 7: 02/02/18 04:29 02/02/18 04:29 Labs: Abnormal Lab Results - Last 24 Hours (Table) 02/01/18 02/01/18 02/01/18 Range/Units 11:47 17:35 17:40 RBC (4.30-5.90) m/uL Hgb (13.0-17.5) gm/dL Hct (39.0-53.0) % MCHC (31.0-37.0) g/dL RDW (11.5-15.5) % Plt Count (150-450) k/uL Lymphocytes # (1.0-4.8) k/uL Sodium (137-145) mmol/L Creatinine (0.66-1.25) mg/dL POC Glucose (mg/dL) 113 H 238 H 143 H (75-99) mg/dL 02/01/18 02/02/18 02/02/18 Range/Units 21:08 04:29 04:29 RBC 3.25 L (4.30-5.90) m/uL Hgb 9.2 L (13.0-17.5) gm/dL Hct 30.2 L (39.0-53.0) % MCHC 30.6 L (31.0-37.0) g/dL RDW 21.7 H (11.5-15.5) % Plt Count 488 H (150-450) k/uL Lymphocytes # 0.8 L (1.0-4.8) k/uL Sodium 134 L (137-145) mmol/L Creatinine 0.62 L (0.66-1.25) mg/dL POC Glucose (mg/dL) 130 H (75-99) mg/dL Microbiology - Last 24 Hours (Table) 01/28/18 11:20 Gram Stain - Final Pleural Fluid Body Fluid Culture - Final Assessment and Plan Assessment: 1. Sigmoid diverticulitis: With possible submucosal abscess vs mass. Patient was started on Zosyn and Levoloxacin IV. Zosyn was discontinued and currently on Levaquin for underlying pneumonia. Gastroenterology on board - plans for EGD and C-scope today 2. Symptomatic anemia: s/p 3 units PRBC. FOBT +. Iron studies are consistent with anemia of chronic disease. TSH, Folate and B12 are within normal limits. LDH elevated, indicating hemolysis. 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 Patient is pending EGD and C-scope. Daily CBC. FU Hematology, outPT BM Bx if workup unrevealing. 3. Acute respiratory failure with hypoxia: Thought to be secondary to mucous plugging. Patient required intubation and mechanical ventilation during this admission. Extubated successfully on 01/28. Pulmonology following closely. s/p thoracentesis 01/28/2018, pleural Cx currently negative. BAL Cx negative. Continue Lasix 40 mg BID, DuoNeb scheduled and PRN. FU Pleural Cx (final), 4. LLL Pneumonia: Patient is afebrile with no leukocytosis. Previous CXR with concerns of LLL PNA. BAL Cx negative. Continue Levofloxacin as directed by pulmonology, Incentive spirometry. HOB elevation. FU Pulmonology, 5. 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 Neurology consulted - weakness thought to be due to malnutrition, hypoK and severe anemia. CPK within normal limits. Fall precautions. FU Neurology, PT/OT 6. Troponemia: Trop 0.14 x 2, 0.10, with EKG showing SR with PVC. Echocardiogram shows EF of 55-60%. No further testing at this time. 7. Polysubstance abuse: EtOH and tobacco. Continue MVI 1 tab PO QD, Folic acid 1 mg PO QD, Thiamine 100 mg PO BID. CIWA protocol. Ativan IV PRN for WD. Nicotine patch. 8. Protein calorie malnutrition: BMI 17.2 FU Dietitian 9. DVT/GI Prophylaxis: Protonix 40 mg IV QD. Today, I reviewed his medication list and lab work results. I discussed plan of care with nursing staff. Patient is currently step down care overflow awaiting bed availability. PT/OT evaluation. Appreciate partner management consultant's recommendations. Repeat lab work in the morning.
[2018-02-02] MEDS: NICOTINE 21MG/24HR PATCH TRANSDERM SCH (11:19)
[2018-02-02] MEDS: THIAMINE 100 MG TAB PO SCH ×3 (12:00→18:24)
[2018-02-02 12:01] LABS: Glucose,Whole Blood 74 mg/dL (75-99)
[2018-02-02] MEDS ORDERED: PROPOFOL 10 MG/ML 20 ML VIAL IV ONE (14:20)
[2018-02-02] MEDS ORDERED: ePHEDrine SULFATE/0.9% NACL/PF 50 MG/5 ML SYRINGE IV ONE (14:20)
[2018-02-02] MEDS ORDERED: LIDOCAINE 1% INJ 10MG/ML (20 ML MDV) ONE (14:20)
[2018-02-02] MEDS ORDERED: IV FLUID CONTINUATION 500 ML IV ONE (14:22)
--- NOTE | 2018-02-02 15:28 | P.PCN ---
Date of Procedure: 02/02/18 Procedure(s) Performed: Procedure: 1. Esophagogastroduodenoscopy. 2. Colonoscopy and polypectomy. Preoperative diagnosis: Anemia. Postoperative diagnosis: 1. Sliding hiatal hernia with no obvious esophagitis or complicated reflux disease. 2. Normal stomach and duodenum with no ulcers or bleeding. 3. Diverticulosis with no evidence of acute diverticulitis or strictures. 4. Sigmoid polyp snared but no large polyps or cancer. Preparation: GoLYTELY prep. Sedation: Was provided by anesthesia. Brief clinical history: The patient is a 72-year-old male who was admitted to the hospital with left lower lobe pneumonia and septic shock and was found to have severe symptomatic anemia with a hemoglobin of 5.5 requiring transfusions. There was no history of hematemesis or hematochezia or melena. CT of the abdomen and pelvis reported thickening of the sigmoid and an underlying lesion could not be excluded. The patient has recuperated well and is not having any abdominal pain. His hemoglobin has been stable at around 9.7. This evaluation is to assess for possible upper lower GI sources of bleeding. Procedure: With the patient on his left lateral decubitus position and after informed consent and adequate sedation, I passed the Olympus-GIF 160 video upper endoscope through the cricopharyngeus down the esophagus. GE junction was around 40 cm from the incisors and there was a sliding hiatal hernia but no obvious esophagitis or complicated reflux disease. The endoscope was then passed into the stomach which was insufflated with air and inspected in detail including the retroflex view in the cardia. No obvious abnormalities were noted. Pyloric channel appeared normal. Duodenal bulb, post bulbar area and descending duodenum appeared within normal limits. There was no evidence of bleeding or potential sources of bleeding. No biopsies were indicated and the endoscope was withdrawn and I proceeded with the colonoscopy. Perianal area did not show any fissures or fistulas. There were no masses felt on digital rectal examination. The Olympus CFQ 160L video colonoscope was then inserted in the rectum in the usual fashion and advanced to the cecum. There was a small polyp in the proximal sigmoid that was snared and retrieved by suction but there were no large polyps or cancer. There were multiple diverticular orifices seen scattered in the sigmoid and left colon with no evidence of acute diverticulitis or strictures. No masses or tumors were seen. All fecal material, fecal debris and fecal water encountered was greenish in color with no evidence of bleeding. The patient tolerated the procedure well. Plan: The patient was reassured. Will allow regular diet. Further workup will depend on his course. I would recommend repeat colonoscopy in 5 years depending on his overall health at that time.
[2018-02-02 17:38] LABS: Glucose,Whole Blood 87 mg/dL (75-99)
[2018-02-02] MEDS: MULTIVITAMINS, THERA 1 EACH TAB PO SCH (18:22)
[2018-02-02] MEDS: FOLIC ACID 1 MG TAB PO SCH (18:22)
[2018-02-02] MEDS ORDERED: Magnesium Replacement Protocol 1 EACH MISC MISCELLANE PRN (23:11)
[2018-02-02] MEDS: MAGNESIUM SULFATE-D5W PMX 1 GM in DEXTROSE/WATER 1 100ML.BAG IVPB SCH (23:46)
[2018-02-03] MEDS: MAGNESIUM SULFATE-D5W PMX 1 GM in DEXTROSE/WATER 1 100ML.BAG IVPB SCH (00:41)
[2018-02-03 06:46] LABS: Anisocytosis Moderate; HCT 29.4 % (39.0-53.0); HGB 9.2 gm/dL (13.0-17.5); Hypochromasia Marked; MCH 29.8 pg (25.0-35.0); MCHC 31.4 g/dL (31.0-37.0); MCV 94.9 fL (80.0-100.0); Macrocytosis Slight; Mean Platelet Volume 7.5; Microcytosis Slight; Platelet Count 509 k/uL (150-450); RBC 3.09 m/uL (4.30-5.90); RDW 21.6 % (11.5-15.5); WBC 5.8 k/uL (3.8-10.6)
[2018-02-03 06:48] LABS: Anion Gap 9 mmol/L; Blood Urea Nitrogen 6 mg/dL (9-20); Calcium 8.4 mg/dL (8.4-10.2); Carbon Dioxide 28 mmol/L (22-30); Chloride 101 mmol/L (98-107); Glucose 89 mg/dL (74-99); Magnesium 2.3 mg/dL (1.6-2.3); Potassium 4.2 mmol/L (3.5-5.1); Sodium 138 mmol/L (137-145)
--- NOTE | 2018-02-03 08:28 | P.PN ---
Subjective Progress Note Date: 02/03/18 Principal diagnosis: Acute hypoxic respiratory failure secondary to left lower lobe pneumonia, left parapneumonic pleural effusion, anemia and septic shock This is a 72-year-old male patient, a chronic smoker, a chronic alcoholic, came into the hospital as the patient was becoming progressively weak to the point where he was unable to perform activities of daily today life. He came in to the emergency with generalized weakness, falling to the ground and he was unable to recover himself. Nevertheless there was no loss of consciousness or syncope. The patient in the emergency department was seen and evaluated. CAT scan of the brain was done that showed age-related atrophy and some chronic sinusitis. Chest x-ray was consistent with pulmonary granulomas consistent with old infection. The patient was found to profoundly anemic with a hemoglobin of 5.5. Troponin was minimally elevated at 0.1. The patient got transfused with packed RBC. Subsequently the patient got admitted to the medical floor and pulmonary consultation was requested knowing that the patient had a CAT scan of the chest and the findings were abnormal. Note that the patient had a full CAT scan of the chest abdomen and pelvis. CAT scan of the chest showed a limited air bronchogram involving the superior segment of the left lower lobe along with some fluid within the interlobar fissure in addition to small bibasilar pulmonary effusions. There is advanced background emphysema in addition to apical scarring and pulmonary granulomas 2 of them are seen on the right. There is also evidence of segmental compression atelectasis in lung bases bilaterally. The tracheobronchial tree was patent. Mediastinum showed some old mediastinal lymph node calcification suggestive of prior granulomatous disease. No pericardial effusion. Also, the patient showed hepatic steatosis, fatty infiltration of the liver, extensive atherosclerosis of the abdominal aorta and its branches, mild spinal canal stenosis at the level of T10-T11 and evidence of numerous sigmoid diverticulosis and questionable mild component of acute sigmoid diverticulitis and direct colonoscopic evaluation was recommended by the radiologist From the pulmonary standpoint, the patient is a chronic smoker and he has chronic exertional dyspnea and chronic congested cough. No hemoptysis. No pleurisy. No worsening shortness of breath. He can't recall a previous pneumonia back in 2016 involving the left lung base and he was hospitalized back then at [facility]. He was told that this was a severe pneumonia and he was very close to dying from this condition. He ultimately improved. Currently is no nausea or vomiting. Most of it abdominal pain. He is an alcohol drinker. He denies having to pass out from alcohol drinking. He denies having any seizure activity from alcohol drinking. He is currently on DT prophylaxis is also on nicotine patch. on 01/24/2018 the patient got transferred to the intensive care units. The patient early this morning at around 1 AM he became acutely short of breath. He became acutely hypoxic. Initially was on 2 L of oxygen by nasal cannula in progress with Dr. remigio morrison up and he was placed on the percent nonrebreather facemask. Subsequently was found to have labored breathing and rapid response team was called and the patient was placed on a BiPAP at a pressure of 12/5 cm of water with an FiO2 of 100%. Got transferred to the intensive care unit and his current pulse ox is around 91-92%. Chest x-ray shows significant abnormality and interval change compared to yesterday. There is significant amount of volume loss and interval development of atelectasis in the left lower lobe and some infiltration of the perihilar area and the left upper lobe. The patient is currently short of breath and tachypneic and in mild to moderate degree of respiratory distress even being on a BiPAP. As such have made decision to proceed with intubation and proceed with a bronchoscopic evaluation of the left lung. He may need the CAT scan of the chest repeated. He may need also to be placed on broad-spectrum antibiotics and I will restart him on a combination of Zosyn and Levaquin. His white cell count is not elevated. Is afebrile. The Benedict catheter was inserted and the urine output is diminished at this point in time. White cell count is at 6.1. Blood gases done this morning showed a pH of 7.33 with a pCO2 of 50 and pCO2 of 5700% nonrebreather facemask. He received a total of 2 units of packed RBC and hemoglobin today is 10.2. MRI of the spine was noted there is osseous structures and diffuse his energy his marrow signal and within the differential diagnoses there is a possibility of diffuse bony metastases. Patient was reevaluated today on 01/25/2018, in the ICU, on mechanical ventilation, ventilator settings are tidal volume of 400, FiO2 of 50%, assist control rate of 22, PEEP is 5. ABG is marginal with a pO2 of 78 pCO2 of 37 pH of 7.47. Patient remains on propofol is also on norepinephrine, 7 mcg/m, and propofol is 35 mcg/kg/m. Patient is arousable, follows simple instructions like wiggling toes, closing eyes, in spite of of low-dose propofol on board. Chest x-ray was reviewed, and it showed mostly a left lower lobe pneumonia left pleural effusion, and a small tiny right sided pleural effusion with atelectasis. His basic metabolic profile is normal except for low potassium of 3.1, being corrected, his CBC is relatively unremarkable. WBC count is 7.4 hemoglobin is 9.6. His hemoglobin is holding, patient received a total of 3 units of packed RBCs since admission. Patient is being followed by hematology/ oncology for what seems to be a picture of myeloproliferative disorder. Patient was reevaluated today on 01/26/2018, remains on mechanical ventilation, chest x-ray is showing worsening infiltrates in the right and left lower lobe, and bilateral pleural effusions. Patient remains on the same ventilator settings, however FiO2 was cut down to 40%, ABG showed a pO2 of 183 pCO2 of 34 pH of 7.50. Electrolytes and renal profile are normal. CBC is relatively normal, hemoglobin is holding at 8.9. Chest x-ray as noted earlier showing worsening bilateral pleural effusions and airspace disease in the lower lobes. Hence I have recommended Lasix to be given. In the meantime the patient is slowly waking up as we are slowly weaning down the propofol. Seems to follow simple instructions, but he seems to be generally weak. His norepinephrine is down to 2 mcg/m. Patient is still on antibiotics, bronchodilators, nutritional support, and I'm hoping we could consider a weaning trial on this patient today. Patient was reevaluated today on 01/27/2018, patient was extubated briefly yesterday, however shortly after I left the ICU, patient had a sudden episode of desaturation, although his initial ABG before extubation was excellent, and the patient had an excellent response to diuretics prior to extubation. Apparently the patient must have developed a mucous plug, and he was having difficulty clearing his secretions according to the nurse was taking care of the patient. Patient was immediately reintubated by AUTHOR, and now he is back on mechanical ventilation. Ventilator settings today are assist control rate of 22 tidal volume of 400 FiO2 of 40%, PEEP is at 5. He is on propofol at 35 mcg/kg/m, he is also on norepinephrine at 1 mcg/m. ABG this morning showed a pO2 of 138 pCO2 of 40 pH of 7.48. Potassium is low at 2.0, corrected and repeat potassium was 3.7. Calcium is 6.4, however her albumin is 2.5. Renal profile is normal. CBC showed a WBC count of 6.5 hemoglobin of 8.8, holding nicely. Chest x-ray showed bilateral effusions and associated atelectasis. Hence more Lasix will be given today, and I would maintain him on Lasix at 40 mg IV push every 12 hours. No bowel movements in the last few days, hence the patient will be started on Reglan. Patient was seen by hematology on consultation, workup for multiple myeloma has been negative, and eventually the patient will need MRI of the lumbosacral spine. Patient was examined today in the ICU on 01/28/2018, remains on mechanical ventilation, patient is awake, seems to be alert oriented, follows simple instructions, yesterday he tolerated all modes good 6 hours of pressure support and CPAP, and he seems to be tolerating pressure support and CPAP well today as I'm watching the patient in the ICU. Chest x-ray continues to show bilateral pleural effusions, I recommended a stat ultrasound of the chest, and there is good sized right-sided pleural effusion which will be drained, and I have recommended to the patient that we go ahead and do thoracentesis. Patient is agreeable, and I plan to likely extubate the patient after the thoracentesis. His ventilator settings where tidal volume of 400 assist control rate of 22 FiO2 40% PEEP of 5. ABG this morning showed a pO2 of 111 he CO2 of 42 pH of 7.50. Hemoglobin is 9.2, holding nicely. Platelets are 341. Basic metabolic profile is normal renal profile is normal. Positive Hemoccult blood noted. But again his hemoglobin is holding nicely. Chest x-ray showed bilateral pleural effusions, right more so than left. Ultrasound confirmed, however the right-sided pleural effusion seems to be much larger than the left. And I plan to do a right-sided thoracentesis today. Reevaluated today on 01/29/2018, patient underwent a right-sided thoracentesis yesterday, followed by extubation from a pressure support mode of mechanical ventilation. Patient tolerated the extubation quite well. Continues to tolerate extubation today, his chest x-ray is significantly improved. Patient is feeling better, relatively asymptomatic. However he continues to have intermittently low blood pressure and he has been intermittently on a low dose of norepinephrine anywhere between 1-2 mcg/m. I will give him a fluid bolus today, and hopefully could get him off norepinephrine and possibly transfer him out of the ICU. Patient is feeling better overall, and he is in no form of respiratory distress at this point. CBC showed hemoglobin stable at 9.4. His electrolytes are normal renal profile is normal bicarb is 27. Potassium is 3.6. Continues to have some left lower lobe atelectasis and possible infiltrate in the left lower lobe with a small tiny left pleural effusion evaluated yesterday by ultrasound, and was not felt to be large enough to perform thoracentesis. Reevaluated today on 01/30/2018, patient tolerated extubation well over the last 2 days, he was actually extubated on 01/28/2018, blood pressure seems to be stabilizing, off norepinephrine, his mean arterial pressure is in the 70s. Patient is relatively asymptomatic, his labs were reviewed and his hemoglobin is 8.3, WBC count is 5 potassium is a bit low being corrected. Renal profile is normal. No chest x-ray was done today. Reevaluated today on 01/31/2018, patient continues to tolerate extubation over the last 3 days. He was extubated on 01/28/2018. Has not required any pressors for the last 2 days, patient is presently a selective overflow. Clinically the patient is doing well, denies any cough no wheezing no shortness of breath. CBC showed WBC 4.7 hemoglobin is 8.3. Basic metabolic profile is relatively normal. No chest x-ray was done today. On 02/01/2018 patient seen along in the intensive care unit. Patient was extubated back on January 28, he is currently on room air, in no acute distress , his IV fluids have been hep-locked. He is now on selective overflow patient. Awake and alert, answering questions appropriately. Chest x-ray has been reviewed, and shows COPD, and atelectasis at the left base. Patient had a right thoracentesis on 01/28/2018 with 600 mL of pleural fluid drained. Patient also underwent bronchoscopy with BAL back on 01/24/2018, cultures are negative. Pleural fluid analysis revealed transudative pleural fluid. Today's labs have been reviewed, WBCs 4.4, hemoglobin is 9.7, electrolytes and renal profile are relatively unremarkable, with a CO2 at 32. Pulse ox on room air is 94%, patient is afebrile, hemodynamically stable. On 02/03/2018 patient seen in follow-up in the intensive care unit. He has been selective care overflow. He is awake and alert, in no acute distress, he is on room air pulse ox is 98%, denies any difficulty breathing, denies any chest pain. No new chest x-ray. Patient had a EGD and colonoscopy history on 02/02/2018 which showed hiatal hernia, diverticulosis, and sigmoid polyps. His lab work shows WBC of 5.8, hemoglobin is 9.2, electrolytes are within normal limits, B1 is 6 and creatinine 0.54. Microbiology remains negative. No IV fluids. Patient has been hep-locked. Increase activity as tolerated, patient can move out to general medical floor. Objective - Vital Signs Vital signs: Vital Signs Temp 97.6 F 02/03/18 04:00 Pulse 86 02/03/18 04:15 Resp 17 02/03/18 04:15 BP 111/98 02/03/18 04:30 Pulse Ox 98 02/03/18 04:15 Intake & Output 02/02/18 02/03/18 02/03/18 18:59 06:59 18:59 Intake Total 1640 200 Output Total 340 750 Balance 1300 -550 Weight 51.7 kg Intake: IV 440 Sodium Chloride 0.9% 1, 240 000 ml @ 20 mls/hr IV . Q24H SANDY Rx#:[id number] Intake, IV Titration 200 Amount Magnesium Sulfate-D5w Pmx 200 1 gm In Dextrose/Water 1 100ml.bag @ 100 mls/hr IVPB Q1H SANDY Rx#: [id number] Oral 1200 Output: Urine 340 750 Other: Voiding Method Incontinent Incontinent # Voids 2 1 # Bowel Movements 3 ABP, PAP, CO, CI - Last Documented Arterial Blood Pressure 93/57 - Exam GENERAL EXAM: Alert, 72-year-old ill-looking white male comfortable in no apparent distress. HEAD: Normocephalic/atraumatic. EYES: Normal reaction of pupils, equal size. Conjunctiva pink, sclera white. NOSE: Clear with pink turbinates. THROAT: No erythema or exudates. NECK: No masses, no JVD, no thyroid enlargement, no adenopathy. CHEST: No chest wall deformity. Symmetrical expansion. LUNGS: Equal air entry with no crackles, wheeze, rhonchi or dullness. CVS: Regular rate and rhythm, normal S1 and S2, no gallops, no murmurs, no rubs ABDOMEN: Soft, nontender. No hepatosplenomegaly, normal bowel sounds, no guarding or rigidity. EXTREMITIES: No clubbing, no edema, no cyanosis, 2+ pulses and upper and lower extremities. MUSCULOSKELETAL: Muscle strength and tone normal. SPINE: No scoliosis or deformity SKIN: No rashes CENTRAL NERVOUS SYSTEM: Alert and oriented -3. No focal deficits, tone is normal in all 4 extremities. PSYCHIATRIC: Alert and oriented -3. Appropriate affect. Intact judgment and insight. - Labs CBC & Chem 7: 02/03/18 05:38 02/03/18 05:38 Labs: Abnormal Lab Results - Last 24 Hours (Table) 02/02/18 02/03/18 02/03/18 Range/Units 12:00 05:38 05:38 RBC 3.09 L (4.30-5.90) m/uL Hgb 9.2 L (13.0-17.5) gm/dL Hct 29.4 L (39.0-53.0) % RDW 21.6 H (11.5-15.5) % Plt Count 509 H (150-450) k/uL BUN 6 L (9-20) mg/dL Creatinine 0.54 L (0.66-1.25) mg/dL POC Glucose (mg/dL) 74 L (75-99) mg/dL Assessment and Plan Plan: Assessment: 1 acute hypoxic respiratory failure requiring intubation and mechanical ventilation, secondary to community-acquired pneumonia, resolved, patient was extubated uneventfully on 01/28 2 symptomatic anemia possible myeloproliferative disorder, being followed by heme/onc 3 chronic alcoholism 4 diffuse heterogeneous bone marrow signal, being addressed by hematology on the case. Workup for multiple myeloma was negative. 5 troponin leak, strongly doubt acute myocardial infarction. 6 frequent premature ventricular contractions 7 generalized weakness and debility, severe protein calorie malnutrition is suspected. Continue fall precautions 8 history of diverticulosis, there continues to concern about GI carcinoma, patient will eventually require further GI workup. 9 bilateral pleural effusions, exact etiology not clear, could be parapneumonic in nature. Thoracentesis was done on 01/28/2018 results of the pleural effusion reflected a transudate of pleural effusion. 10 possible sepsis and septic shock secondary to pneumonia as noted above. 11 status post extubation and reintubation on 01/26/2018. May have developed mucous plug and could not clear secretions, patient had to be reintubated shortly after he was extubated. 12 status post thoracentesis followed by extubation on 01/28/2018. Pleural effusion was noted to be transudative in nature Plan: Continue current plan of treatment, continue current antibiotic coverage, we'll switch the IV Levaquin to oral Levaquin. Continue nebulized bronchodilators, from pulmonary/critical care standpoint patient is stable to move out of the intensive care to general medical floor. We'll continue to follow. I performed a history & physical examination of the patient and discussed their management with my nurse practitioner, Kaelyn Lamar. I reviewed the nurse practitioner's note and agree with the documented findings and plan of care. Lung sounds are clear. The findings and the impression was discussed with the patient. I attest to the documentation by the nurse practitioner. Time with Patient: Less than 30
[2018-02-03] MEDS: NICOTINE 21MG/24HR PATCH TRANSDERM SCH (08:37)
[2018-02-03] MEDS: PANTOPRAZOLE 40 MG TABLET PO SCH (08:37)
[2018-02-03] MEDS: FUROSEMIDE 40 MG TAB PO SCH ×2 (08:37→17:24)
[2018-02-03] MEDS: guaiFENesin 600 MG TABLET.ER PO SCH ×2 (08:37→20:51)
--- NOTE | 2018-02-03 09:55 | P.PN ---
Subjective Progress Note Date: 02/03/18 Patient is doing well today. There is no acute events overnight. Objective - Vital Signs Vital signs: Vital Signs Temp 97.6 F 02/03/18 04:00 Pulse 86 02/03/18 04:15 Resp 17 02/03/18 04:15 BP 111/98 02/03/18 04:30 Pulse Ox 98 02/03/18 04:15 Intake & Output 02/02/18 02/03/18 02/03/18 18:59 06:59 18:59 Intake Total 1640 200 Output Total 340 750 Balance 1300 -550 Weight 51.7 kg Intake: IV 440 Sodium Chloride 0.9% 1, 240 000 ml @ 20 mls/hr IV . Q24H SANDY Rx#:[id number] Intake, IV Titration 200 Amount Magnesium Sulfate-D5w Pmx 200 1 gm In Dextrose/Water 1 100ml.bag @ 100 mls/hr IVPB Q1H SANDY Rx#: [id number] Oral 1200 Output: Urine 340 750 Other: Voiding Method Incontinent Incontinent # Voids 2 1 # Bowel Movements 3 ABP, PAP, CO, CI - Last Documented Arterial Blood Pressure 93/57 - Exam General: The patient is awake and alert, in no distress Eye: there is normal conjunctiva bilaterally. Neck: The neck is supple, there is no JVD. Cardiovascular: Normal S1-S2, no S3-S4, no murmurs. Respiratory: Lungs clear to auscultation bilaterally Gastrointestinal: Abdomen is soft, nontender Musculoskeletal: There is no pedal edema. Neurological:. Speech is normal. Skin: Skin is warm and dry - Labs CBC & Chem 7: 02/03/18 05:38 02/03/18 05:38 Labs: Abnormal Lab Results - Last 24 Hours (Table) 02/02/18 02/03/18 02/03/18 Range/Units 12:00 05:38 05:38 RBC 3.09 L (4.30-5.90) m/uL Hgb 9.2 L (13.0-17.5) gm/dL Hct 29.4 L (39.0-53.0) % RDW 21.6 H (11.5-15.5) % Plt Count 509 H (150-450) k/uL BUN 6 L (9-20) mg/dL Creatinine 0.54 L (0.66-1.25) mg/dL POC Glucose (mg/dL) 74 L (75-99) mg/dL Assessment and Plan Assessment: 1. Sigmoid diverticulitis noted on CT on presentation: Patient was started on Zosyn and Levoloxacin IV. Zosyn was discontinued and currently on Levaquin for underlying pneumonia. Gastroenterology on board - patient underwent EGD and colonoscopy on 02/02 showing a hiatal hernia with no obvious esophagitis, no ulcers or bleeding, evidence of diverticulosis with no evidence of acute diverticulitis or strictures. One polyp was a and there was no obvious large polyp or cancer. 2. Symptomatic anemia: Now hemoglobin stable s/p 3 units PRBC. FOBT +. Iron studies are consistent with anemia of chronic disease. TSH, Folate and B12 are within normal limits. LDH elevated, indicating hemolysis. [facility] CT and MRI L spine unrevealing of CA (though MRI L-spine is suspicious for metastatic bone marrow involvement probably reactive to acute illness). Patient was seen by hematology, outPT BM Bx if workup unrevealing. 3. Acute respiratory failure with hypoxia: Now resolved. Thought to be secondary to mucous plugging. Patient required intubation and mechanical ventilation during this admission. Extubated successfully on 01/28. Pulmonology following closely. s/p thoracentesis 01/28/2018, pleural Cx currently negative. BAL Cx negative. Continue Lasix 40 mg BID, DuoNeb scheduled and PRN. 4. LLL Pneumonia: Patient is afebrile with no leukocytosis. Previous CXR with concerns of LLL PNA. BAL Cx negative. Continue Levofloxacin as directed by pulmonology, Incentive spirometry. HOB elevation. Pulmonology, 5. 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 Neurology consulted - weakness thought to be due to malnutrition, hypoK and severe anemia. CPK within normal limits. Fall precautions. Neurology, PT/OT 6. Troponemia: Trop 0.14 x 2, 0.10, with EKG showing SR with PVC. Echocardiogram shows EF of 55-60%. No further testing at this time. 7. Polysubstance abuse: EtOH and tobacco. Continue MVI 1 tab PO QD, Folic acid 1 mg PO QD, Thiamine 100 mg PO BID. CIWA protocol. Ativan IV PRN for WD. Nicotine patch. 8. Protein calorie malnutrition: BMI 17.2 FU Dietitian 9. DVT/GI Prophylaxis: Protonix 40 mg IV QD. Today, I reviewed his medication list and lab work results. I discussed plan of care with nursing staff. Patient is currently step down care overflow awaiting bed availability. PT/OT evaluation. Appreciate instructional design consultant's recommendations. Repeat lab work in the morning. PT/OT evaluation
[2018-02-03] MEDS: IPRATROPIUM-ALBUTEROL 3 ML NEB INHALATION SCH ×4 (10:17→20:01)
[2018-02-03] MEDS: SODIUM CHLORIDE 0.9% 1,000 ML IV SCH (11:19)
[2018-02-03] MEDS: LEVOFLOXACIN 750 MG TAB PO SCH (11:23)
--- NOTE | 2018-02-03 11:47 | P.PN ---
Subjective Progress Note Date: 02/03/18 Principal diagnosis: Anemia 72-year-old gentleman admitted with left lower lobe pneumonia with septic shock , severe symptomatic anemia hemoglobin of 5.5 requiring 2 units of blood. Received total of 3 units of blood since admission. CT abdomen and pelvis reported thickening of the sigmoid colon underlying lesion could not be excluded. Status post bronchoscopy and thoracentesis. Status post EGD colonoscopy with no evidence of peptic ulcer disease, neoplasm or bleeding colonic diverticulosis without diverticulitis or strictures. Sigmoid polypectomy 1. Denies abdominal pain. Tolerating regular diet. Hemoglobin 9.2. Objective - Vital Signs Vital signs: Vital Signs Temp 98.5 F 02/03/18 08:00 Pulse 87 02/03/18 10:29 Resp 23 02/03/18 10:00 BP 102/68 02/03/18 10:00 Pulse Ox 96 02/03/18 09:00 Intake & Output 02/02/18 02/03/18 02/03/18 18:59 06:59 18:59 Intake Total 1640 200 350 Output Total 340 750 400 Balance 1300 -550 -50 Weight 51.7 kg Intake: IV 440 Sodium Chloride 0.9% 1, 240 000 ml @ 20 mls/hr IV . Q24H SANDY Rx#:[id number] Intake, IV Titration 200 Amount Magnesium Sulfate-D5w Pmx 200 1 gm In Dextrose/Water 1 100ml.bag @ 100 mls/hr IVPB Q1H SANDY Rx#: [id number] Oral 1200 350 Output: Urine 340 750 400 Other: Voiding Method Incontinent Incontinent # Voids 2 1 # Bowel Movements 3 ABP, PAP, CO, CI - Last Documented Arterial Blood Pressure 93/57 - Exam General appearance: The patient is awake alert in no acute distress. HET: Head is normocephalic and atraumatic. Pupils are equal and reactive. Oropharynx is clear without lesions. Neck: Supple without lymphadenopathy. Trachea midline. Heart: S1 S2. Regular rate and rhythm. Lungs: No crackles or wheezes are heard. Abdomen: Soft, nontender, nondistended with bowel sounds. No peritoneal signs. No palpable organomegaly or masses. - Labs CBC & Chem 7: 02/03/18 05:38 02/03/18 05:38 Labs: Abnormal Lab Results - Last 24 Hours (Table) 02/02/18 02/03/18 02/03/18 Range/Units 12:00 05:38 05:38 RBC 3.09 L (4.30-5.90) m/uL Hgb 9.2 L (13.0-17.5) gm/dL Hct 29.4 L (39.0-53.0) % RDW 21.6 H (11.5-15.5) % Plt Count 509 H (150-450) k/uL BUN 6 L (9-20) mg/dL Creatinine 0.54 L (0.66-1.25) mg/dL POC Glucose (mg/dL) 74 L (75-99) mg/dL Assessment and Plan Assessment: Impression: 1. Acute respiratory failure secondary to severe pneumonia mucous plug status post extubation and bronchoscopy. Thoracentesis yesterday 600 mL removed. 2. Severe symptomatic anemia CT imaging reported thickening of the sigmoid colon and underlying mucosal lesion could not be excluded. Presently no active GI bleeding. Status post EGD colonoscopy with no evidence of peptic ulcer disease, neoplasm or bleeding, colonic diverticulosis sigmoid polypectomy 1. 3. Alcohol abuse. Plan: 1. Continue symptomatic supportive measures. Regular diet. We'll sign off and be available for questions or concerns. Assessment and plan of care discussed with Dr. Noriega
[2018-02-03] MEDS: MULTIVITAMINS, THERA 1 EACH TAB PO SCH (12:13)
[2018-02-03] MEDS: FOLIC ACID 1 MG TAB PO SCH (12:13)
[2018-02-03] MEDS: THIAMINE 100 MG TAB PO SCH ×2 (12:13→17:24)
[2018-02-04] MEDS: SODIUM CHLORIDE 0.9% 1,000 ML IV SCH (05:07)
[2018-02-04 07:43] LABS: Anisocytosis Moderate; HGB 9.4 gm/dL (13.0-17.5); Hypochromasia Marked; MCH 30.3 pg (25.0-35.0); MCHC 31.4 g/dL (31.0-37.0); MCV 96.6 fL (80.0-100.0); Macrocytosis Slight; Mean Platelet Volume 7.1; Platelet Count 598 k/uL (150-450); RBC 3.11 m/uL (4.30-5.90); RDW 21.7 % (11.5-15.5); WBC 6.7 k/uL (3.8-10.6)
[2018-02-04 08:00] LABS: Anion Gap 8 mmol/L; Blood Urea Nitrogen 11 mg/dL (9-20); Calcium 8.8 mg/dL (8.4-10.2); Carbon Dioxide 30 mmol/L (22-30); Chloride 100 mmol/L (98-107); Glucose 96 mg/dL (74-99); Potassium 4.6 mmol/L (3.5-5.1); Sodium 138 mmol/L (137-145)
[2018-02-04] MEDS: NICOTINE 21MG/24HR PATCH TRANSDERM SCH (08:17)
[2018-02-04] MEDS: guaiFENesin 600 MG TABLET.ER PO SCH ×2 (08:17→20:10)
[2018-02-04] MEDS: FUROSEMIDE 40 MG TAB PO SCH ×2 (08:17→16:30)
[2018-02-04] MEDS: PANTOPRAZOLE 40 MG TABLET PO SCH (08:17)
[2018-02-04] MEDS: IPRATROPIUM-ALBUTEROL 3 ML NEB INHALATION SCH ×4 (09:11→20:15)
--- NOTE | 2018-02-04 09:11 | P.PN ---
Subjective Progress Note Date: 02/04/18 Principal diagnosis: Acute hypoxic respiratory failure secondary to left lower lobe pneumonia, left parapneumonic pleural effusion, anemia and septic shock This is a 72-year-old male patient, a chronic smoker, a chronic alcoholic, came into the hospital as the patient was becoming progressively weak to the point where he was unable to perform activities of daily today life. He came in to the emergency with generalized weakness, falling to the ground and he was unable to recover himself. Nevertheless there was no loss of consciousness or syncope. The patient in the emergency department was seen and evaluated. CAT scan of the brain was done that showed age-related atrophy and some chronic sinusitis. Chest x-ray was consistent with pulmonary granulomas consistent with old infection. The patient was found to profoundly anemic with a hemoglobin of 5.5. Troponin was minimally elevated at 0.1. The patient got transfused with packed RBC. Subsequently the patient got admitted to the medical floor and pulmonary consultation was requested knowing that the patient had a CAT scan of the chest and the findings were abnormal. Note that the patient had a full CAT scan of the chest abdomen and pelvis. CAT scan of the chest showed a limited air bronchogram involving the superior segment of the left lower lobe along with some fluid within the interlobar fissure in addition to small bibasilar pulmonary effusions. There is advanced background emphysema in addition to apical scarring and pulmonary granulomas 2 of them are seen on the right. There is also evidence of segmental compression atelectasis in lung bases bilaterally. The tracheobronchial tree was patent. Mediastinum showed some old mediastinal lymph node calcification suggestive of prior granulomatous disease. No pericardial effusion. Also, the patient showed hepatic steatosis, fatty infiltration of the liver, extensive atherosclerosis of the abdominal aorta and its branches, mild spinal canal stenosis at the level of T10-T11 and evidence of numerous sigmoid diverticulosis and questionable mild component of acute sigmoid diverticulitis and direct colonoscopic evaluation was recommended by the radiologist From the pulmonary standpoint, the patient is a chronic smoker and he has chronic exertional dyspnea and chronic congested cough. No hemoptysis. No pleurisy. No worsening shortness of breath. He can't recall a previous pneumonia back in 2016 involving the left lung base and he was hospitalized back then at [facility]. He was told that this was a severe pneumonia and he was very close to dying from this condition. He ultimately improved. Currently is no nausea or vomiting. Most of it abdominal pain. He is an alcohol drinker. He denies having to pass out from alcohol drinking. He denies having any seizure activity from alcohol drinking. He is currently on DT prophylaxis is also on nicotine patch. on 01/24/2018 the patient got transferred to the intensive care units. The patient early this morning at around 1 AM he became acutely short of breath. He became acutely hypoxic. Initially was on 2 L of oxygen by nasal cannula in progress with Dr. remigio morrison up and he was placed on the percent nonrebreather facemask. Subsequently was found to have labored breathing and rapid response team was called and the patient was placed on a BiPAP at a pressure of 12/5 cm of water with an FiO2 of 100%. Got transferred to the intensive care unit and his current pulse ox is around 91-92%. Chest x-ray shows significant abnormality and interval change compared to yesterday. There is significant amount of volume loss and interval development of atelectasis in the left lower lobe and some infiltration of the perihilar area and the left upper lobe. The patient is currently short of breath and tachypneic and in mild to moderate degree of respiratory distress even being on a BiPAP. As such have made decision to proceed with intubation and proceed with a bronchoscopic evaluation of the left lung. He may need the CAT scan of the chest repeated. He may need also to be placed on broad-spectrum antibiotics and I will restart him on a combination of Zosyn and Levaquin. His white cell count is not elevated. Is afebrile. The Benedict catheter was inserted and the urine output is diminished at this point in time. White cell count is at 6.1. Blood gases done this morning showed a pH of 7.33 with a pCO2 of 50 and pCO2 of 5700% nonrebreather facemask. He received a total of 2 units of packed RBC and hemoglobin today is 10.2. MRI of the spine was noted there is osseous structures and diffuse his energy his marrow signal and within the differential diagnoses there is a possibility of diffuse bony metastases. Patient was reevaluated today on 01/25/2018, in the ICU, on mechanical ventilation, ventilator settings are tidal volume of 400, FiO2 of 50%, assist control rate of 22, PEEP is 5. ABG is marginal with a pO2 of 78 pCO2 of 37 pH of 7.47. Patient remains on propofol is also on norepinephrine, 7 mcg/m, and propofol is 35 mcg/kg/m. Patient is arousable, follows simple instructions like wiggling toes, closing eyes, in spite of of low-dose propofol on board. Chest x-ray was reviewed, and it showed mostly a left lower lobe pneumonia left pleural effusion, and a small tiny right sided pleural effusion with atelectasis. His basic metabolic profile is normal except for low potassium of 3.1, being corrected, his CBC is relatively unremarkable. WBC count is 7.4 hemoglobin is 9.6. His hemoglobin is holding, patient received a total of 3 units of packed RBCs since admission. Patient is being followed by hematology/ oncology for what seems to be a picture of myeloproliferative disorder. Patient was reevaluated today on 01/26/2018, remains on mechanical ventilation, chest x-ray is showing worsening infiltrates in the right and left lower lobe, and bilateral pleural effusions. Patient remains on the same ventilator settings, however FiO2 was cut down to 40%, ABG showed a pO2 of 183 pCO2 of 34 pH of 7.50. Electrolytes and renal profile are normal. CBC is relatively normal, hemoglobin is holding at 8.9. Chest x-ray as noted earlier showing worsening bilateral pleural effusions and airspace disease in the lower lobes. Hence I have recommended Lasix to be given. In the meantime the patient is slowly waking up as we are slowly weaning down the propofol. Seems to follow simple instructions, but he seems to be generally weak. His norepinephrine is down to 2 mcg/m. Patient is still on antibiotics, bronchodilators, nutritional support, and I'm hoping we could consider a weaning trial on this patient today. Patient was reevaluated today on 01/27/2018, patient was extubated briefly yesterday, however shortly after I left the ICU, patient had a sudden episode of desaturation, although his initial ABG before extubation was excellent, and the patient had an excellent response to diuretics prior to extubation. Apparently the patient must have developed a mucous plug, and he was having difficulty clearing his secretions according to the nurse was taking care of the patient. Patient was immediately reintubated by [employer], and now he is back on mechanical ventilation. Ventilator settings today are assist control rate of 22 tidal volume of 400 FiO2 of 40%, PEEP is at 5. He is on propofol at 35 mcg/kg/m, he is also on norepinephrine at 1 mcg/m. ABG this morning showed a pO2 of 138 pCO2 of 40 pH of 7.48. Potassium is low at 2.0, corrected and repeat potassium was 3.7. Calcium is 6.4, however her albumin is 2.5. Renal profile is normal. CBC showed a WBC count of 6.5 hemoglobin of 8.8, holding nicely. Chest x-ray showed bilateral effusions and associated atelectasis. Hence more Lasix will be given today, and I would maintain him on Lasix at 40 mg IV push every 12 hours. No bowel movements in the last few days, hence the patient will be started on Reglan. Patient was seen by hematology on consultation, workup for multiple myeloma has been negative, and eventually the patient will need MRI of the lumbosacral spine. Patient was examined today in the ICU on 01/28/2018, remains on mechanical ventilation, patient is awake, seems to be alert oriented, follows simple instructions, yesterday he tolerated all modes good 6 hours of pressure support and CPAP, and he seems to be tolerating pressure support and CPAP well today as I'm watching the patient in the ICU. Chest x-ray continues to show bilateral pleural effusions, I recommended a stat ultrasound of the chest, and there is good sized right-sided pleural effusion which will be drained, and I have recommended to the patient that we go ahead and do thoracentesis. Patient is agreeable, and I plan to likely extubate the patient after the thoracentesis. His ventilator settings where tidal volume of 400 assist control rate of 22 FiO2 40% PEEP of 5. ABG this morning showed a pO2 of 111 he CO2 of 42 pH of 7.50. Hemoglobin is 9.2, holding nicely. Platelets are 341. Basic metabolic profile is normal renal profile is normal. Positive Hemoccult blood noted. But again his hemoglobin is holding nicely. Chest x-ray showed bilateral pleural effusions, right more so than left. Ultrasound confirmed, however the right-sided pleural effusion seems to be much larger than the left. And I plan to do a right-sided thoracentesis today. Reevaluated today on 01/29/2018, patient underwent a right-sided thoracentesis yesterday, followed by extubation from a pressure support mode of mechanical ventilation. Patient tolerated the extubation quite well. Continues to tolerate extubation today, his chest x-ray is significantly improved. Patient is feeling better, relatively asymptomatic. However he continues to have intermittently low blood pressure and he has been intermittently on a low dose of norepinephrine anywhere between 1-2 mcg/m. I will give him a fluid bolus today, and hopefully could get him off norepinephrine and possibly transfer him out of the ICU. Patient is feeling better overall, and he is in no form of respiratory distress at this point. CBC showed hemoglobin stable at 9.4. His electrolytes are normal renal profile is normal bicarb is 27. Potassium is 3.6. Continues to have some left lower lobe atelectasis and possible infiltrate in the left lower lobe with a small tiny left pleural effusion evaluated yesterday by ultrasound, and was not felt to be large enough to perform thoracentesis. Reevaluated today on 01/30/2018, patient tolerated extubation well over the last 2 days, he was actually extubated on 01/28/2018, blood pressure seems to be stabilizing, off norepinephrine, his mean arterial pressure is in the 70s. Patient is relatively asymptomatic, his labs were reviewed and his hemoglobin is 8.3, WBC count is 5 potassium is a bit low being corrected. Renal profile is normal. No chest x-ray was done today. Reevaluated today on 01/31/2018, patient continues to tolerate extubation over the last 3 days. He was extubated on 01/28/2018. Has not required any pressors for the last 2 days, patient is presently a selective overflow. Clinically the patient is doing well, denies any cough no wheezing no shortness of breath. CBC showed WBC 4.7 hemoglobin is 8.3. Basic metabolic profile is relatively normal. No chest x-ray was done today. On 02/01/2018 patient seen along in the intensive care unit. Patient was extubated back on January 28, he is currently on room air, in no acute distress , his IV fluids have been hep-locked. He is now on selective overflow patient. Awake and alert, answering questions appropriately. Chest x-ray has been reviewed, and shows COPD, and atelectasis at the left base. Patient had a right thoracentesis on 01/28/2018 with 600 mL of pleural fluid drained. Patient also underwent bronchoscopy with BAL back on 01/24/2018, cultures are negative. Pleural fluid analysis revealed transudative pleural fluid. Today's labs have been reviewed, WBCs 4.4, hemoglobin is 9.7, electrolytes and renal profile are relatively unremarkable, with a CO2 at 32. Pulse ox on room air is 94%, patient is afebrile, hemodynamically stable. On 02/03/2018 patient seen in follow-up in the intensive care unit. He has been selective care overflow. He is awake and alert, in no acute distress, he is on room air pulse ox is 98%, denies any difficulty breathing, denies any chest pain. No new chest x-ray. Patient had a EGD and colonoscopy history on 02/02/2018 which showed hiatal hernia, diverticulosis, and sigmoid polyps. His lab work shows WBC of 5.8, hemoglobin is 9.2, electrolytes are within normal limits, B1 is 6 and creatinine 0.54. Microbiology remains negative. No IV fluids. Patient has been hep-locked. Increase activity as tolerated, patient can move out to general medical floor. On 02/04/2018 patient seen in follow-up in the intensive care unit, patient has been in overflow for general medical floor for last couple of days. He is resting comfortably in bed, currently on no oxygen, with a pulse ox of 100%, he is afebrile, vital signs are stable. Respirations are even and nonlabored. Lung sounds are clear to auscultation, denies any shortness of breath, denies any chest pain, no nausea, no vomiting, no abdominal pain. Patient underwent EGD and colonoscopy 2 days ago, and that showed hiatal hernia, diverticulosis and sigmoid polyps. Patient is tolerating regular diet. He remains generally weak, physical therapy is working with the patient. Patient is insisting on going home after discharge, he may benefit from subacute rehab placement. She remains stable, no acute issues overnight, cultures remain negative, patient is afebrile, patient continues on antibiotic coverage in the form of Levaquin. Objective - Vital Signs Vital signs: Vital Signs Temp 97.8 F 02/04/18 04:00 Pulse 88 02/04/18 06:00 Resp 20 02/04/18 06:00 BP 149/104 02/04/18 06:00 Pulse Ox 100 02/04/18 06:00 Intake & Output 10/02/04/18 02/04/18 18:59 06:59 18:59 Intake Total 350 500 250 Output Total 450 1250 200 Balance -100 -750 50 Weight 49.5 kg Intake: Oral 350 500 250 Output: Urine 450 1250 200 Other: Voiding Method Urinal Urinal # Voids 1 ABP, PAP, CO, CI - Last Documented Arterial Blood Pressure 93/57 - Exam GENERAL EXAM: Alert, 72-year-old ill-looking white male comfortable in no apparent distress. HEAD: Normocephalic/atraumatic. EYES: Normal reaction of pupils, equal size. Conjunctiva pink, sclera white. NOSE: Clear with pink turbinates. THROAT: No erythema or exudates. NECK: No masses, no JVD, no thyroid enlargement, no adenopathy. CHEST: No chest wall deformity. Symmetrical expansion. LUNGS: Equal air entry with no crackles, wheeze, rhonchi or dullness. CVS: Regular rate and rhythm, normal S1 and S2, no gallops, no murmurs, no rubs ABDOMEN: Soft, nontender. No hepatosplenomegaly, normal bowel sounds, no guarding or rigidity. EXTREMITIES: No clubbing, no edema, no cyanosis, 2+ pulses and upper and lower extremities. MUSCULOSKELETAL: Muscle strength and tone normal. SPINE: No scoliosis or deformity SKIN: No rashes CENTRAL NERVOUS SYSTEM: Alert and oriented -3. No focal deficits, tone is normal in all 4 extremities. PSYCHIATRIC: Alert and oriented -3. Appropriate affect. Intact judgment and insight. - Labs CBC & Chem 7: 02/04/18 07:11 02/04/18 07:11 Labs: Abnormal Lab Results - Last 24 Hours (Table) 02/04/18 02/04/18 Range/Units 07:11 07:11 RBC 3.11 L (4.30-5.90) m/uL Hgb 9.4 L (13.0-17.5) gm/dL Hct 30.0 L (39.0-53.0) % RDW 21.7 H (11.5-15.5) % Plt Count 598 H (150-450) k/uL Creatinine 0.57 L (0.66-1.25) mg/dL Assessment and Plan Plan: Assessment: 1 acute hypoxic respiratory failure requiring intubation and mechanical ventilation, secondary to community-acquired pneumonia, resolved, patient was extubated uneventfully on 01/28 2 symptomatic anemia possible myeloproliferative disorder, being followed by heme/onc 3 chronic alcoholism 4 diffuse heterogeneous bone marrow signal, being addressed by hematology on the case. Workup for multiple myeloma was negative. 5 troponin leak, strongly doubt acute myocardial infarction. 6 frequent premature ventricular contractions 7 generalized weakness and debility, severe protein calorie malnutrition is suspected. Continue fall precautions 8 history of diverticulosis, there continues to concern about GI carcinoma, patient will eventually require further GI workup. 9 bilateral pleural effusions, exact etiology not clear, could be parapneumonic in nature. Thoracentesis was done on 01/28/2018 results of the pleural effusion reflected a transudate of pleural effusion. 10 possible sepsis and septic shock secondary to pneumonia as noted above. 11 status post extubation and reintubation on 01/26/2018. May have developed mucous plug and could not clear secretions, patient had to be reintubated shortly after he was extubated. 12 status post thoracentesis followed by extubation on 01/28/2018. Pleural effusion was noted to be transudative in nature Plan: Continue current plan of treatment, continue current antibiotic coverage, we'll switch the IV Levaquin to oral Levaquin. Continue nebulized bronchodilators, increase activity as tolerated, patient may benefit from subacute rehab placement . He is insisting he is going home after discharge. I performed a history & physical examination of the patient and discussed their management with my nurse practitioner, Kaelyn Lamar. I reviewed the nurse practitioner's note and agree with the documented findings and plan of care. Lung sounds are clear. The findings and the impression was discussed with the patient. I attest to the documentation by the nurse practitioner. Time with Patient: Less than 30
[2018-02-04 10:52] VITALS: BMI 15.6
[2018-02-04] MEDS: MULTIVITAMINS, THERA 1 EACH TAB PO SCH (11:01)
[2018-02-04] MEDS: LEVOFLOXACIN 750 MG TAB PO SCH (11:01)
[2018-02-04] MEDS: FOLIC ACID 1 MG TAB PO SCH (11:01)
[2018-02-04] MEDS: THIAMINE 100 MG TAB PO SCH ×2 (11:01→16:30)
--- NOTE | 2018-02-04 13:29 | P.PN ---
Subjective Progress Note Date: 02/04/18 Patient is doing well today. No events overnight reported by nursing staff. Patient informed me that he would rather go home and he is not interested in the rehab. He is awaiting for evaluation by PT today. Objective - Vital Signs Vital signs: Vital Signs Temp 98.1 F 02/04/18 08:00 Pulse 94 02/04/18 12:41 Resp 21 02/04/18 10:00 BP 101/71 02/04/18 10:00 Pulse Ox 95 02/04/18 10:00 Intake & Output 02/03/18 02/04/18 02/04/18 18:59 06:59 18:59 Intake Total 350 500 500 Output Total 450 1250 326 Balance -100 -750 174 Weight 49.5 kg 49.5 kg Intake: Oral 350 500 500 Output: Urine 450 1250 325 Urine/Stool Mix 1 Other: Voiding Method Urinal Urinal # Voids 1 ABP, PAP, CO, CI - Last Documented Arterial Blood Pressure 93/57 - Exam General: The patient is awake and alert, in no distress Eye: there is normal conjunctiva bilaterally. Neck: The neck is supple, there is no JVD. Cardiovascular: Normal S1-S2, no S3-S4, no murmurs. Respiratory: Lungs clear to auscultation bilaterally Gastrointestinal: Abdomen is soft, nontender Musculoskeletal: There is no pedal edema. Neurological:. Speech is normal. Skin: Skin is warm and dry - Labs CBC & Chem 7: 02/04/18 07:11 02/04/18 07:11 Labs: Abnormal Lab Results - Last 24 Hours (Table) 02/04/18 02/04/18 Range/Units 07:11 07:11 RBC 3.11 L (4.30-5.90) m/uL Hgb 9.4 L (13.0-17.5) gm/dL Hct 30.0 L (39.0-53.0) % RDW 21.7 H (11.5-15.5) % Plt Count 598 H (150-450) k/uL Creatinine 0.57 L (0.66-1.25) mg/dL Assessment and Plan Assessment: 1. Sigmoid diverticulitis noted on CT on presentation: Patient was started on Zosyn and Levoloxacin IV. Zosyn was discontinued and currently on Levaquin for underlying pneumonia. Gastroenterology on board - patient underwent EGD and colonoscopy on 02/02 showing a hiatal hernia with no obvious esophagitis, no ulcers or bleeding, evidence of diverticulosis with no evidence of acute diverticulitis or strictures. One polyp was a and there was no obvious large polyp or cancer. 2. Symptomatic anemia: Now hemoglobin stable s/p 3 units PRBC. FOBT +. Iron studies are consistent with anemia of chronic disease. TSH, Folate and B12 are within normal limits. LDH elevated, indicating hemolysis. Blackwell CT and MRI L spine unrevealing of CA (though MRI L-spine is suspicious for metastatic bone marrow involvement probably reactive to acute illness). Patient was seen by hematology, outPT BM Bx if workup unrevealing. 3. Acute respiratory failure with hypoxia: Now resolved. Thought to be secondary to mucous plugging. Patient required intubation and mechanical ventilation during this admission. Extubated successfully on 01/28. Pulmonology following closely. s/p thoracentesis 01/28/2018, pleural Cx currently negative. BAL Cx negative. Continue Lasix 40 mg BID, DuoNeb scheduled and PRN. 4. LLL Pneumonia: Patient is afebrile with no leukocytosis. Previous CXR with concerns of LLL PNA. BAL Cx negative. Continue Levofloxacin as directed by pulmonology, Incentive spirometry. HOB elevation. FU Pulmonology, 5. 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 Neurology consulted - weakness thought to be due to malnutrition, hypoK and severe anemia. CPK within normal limits. Fall precautions. FU Neurology, PT/OT 6. Troponemia: Trop 0.14 x 2, 0.10, with EKG showing SR with PVC. Echocardiogram shows EF of 55-60%. No further testing at this time. 7. Polysubstance abuse: EtOH and tobacco. Continue MVI 1 tab PO QD, Folic acid 1 mg PO QD, Thiamine 100 mg PO BID. CIWA protocol. Ativan IV PRN for WD. Nicotine patch. 8. Protein calorie malnutrition: BMI 17.2 FU Dietitian 9. DVT/GI Prophylaxis: Protonix 40 mg IV QD. Today, I reviewed his medication list and lab work results. I discussed plan of care with nursing staff. Patient can be transferred out of ICU to [facility] floor. Patient was evaluated by physical therapy would be impossible for him to go home given his significant weakness and also that he does not have any help at home. I discussed with the social welfare clerk and discharge planning subacute rehab hopefully tomorrow
[2018-02-05 05:03] LABS: Anisocytosis Moderate; Basophils # (A) 0.1 k/uL (0-0.2); Basophils % (A) 1 %; Eosinophils # (A) 0.3 k/uL (0-0.7); Eosinophils % (A) 4 %; HGB 9.5 gm/dL (13.0-17.5); Hypochromasia Moderate; Lymphocytes # (A) 0.9 k/uL (1.0-4.8); Lymphocytes % (A) 14 %; MCH 28.9 pg (25.0-35.0); MCHC 30.6 g/dL (31.0-37.0); MCV 94.4 fL (80.0-100.0); Macrocytosis Slight; Mean Platelet Volume 7.1; Microcytosis Slight; Monocytes # (A) 0.4 k/uL (0-1.0); Monocytes % (A) 6 %; Neutrophils % (A) 73 %; Platelet Count 626 k/uL (150-450); RBC 3.28 m/uL (4.30-5.90); RDW 21.5 % (11.5-15.5); WBC 6.8 k/uL (3.8-10.6)
[2018-02-05 05:17] LABS: Anion Gap 7 mmol/L; Blood Urea Nitrogen 17 mg/dL (9-20); Calcium 9.2 mg/dL (8.4-10.2); Carbon Dioxide 28 mmol/L (22-30); Chloride 99 mmol/L (98-107); Glucose 108 mg/dL (74-99); Magnesium 1.9 mg/dL (1.6-2.3); Phosphorus 4.8 mg/dL (2.5-4.5); Potassium 4.1 mmol/L (3.5-5.1); Sodium 134 mmol/L (137-145)
--- NOTE | 2018-02-05 07:20 | P.PN ---
Subjective Progress Note Date: 02/05/18 Principal diagnosis: Anemia, lactic acidemia. Progress note dated 02/02/2018 This is a 72-year-old male with a history of acute hypoxemic respiratory failure requiring intubation and mechanical ventilation secondary to community acquired pneumonia. He was eventually extubated on January 28. In addition, he has a history of symptomatic anemia likely secondary to myeloproliferative disorder, chronic alcohol abuse, frequent PVCs, generalized weakness and general medical debility, diverticulosis, bilateral pleural effusions, with previous thoracentesis done on January 28, sepsis/septic shock with lactic acidemia, and multiple other medical problems and comorbidities. The patient's currently not receiving any supplemental oxygen. His IV is a saline IV at 20 mL an hour. He is scheduled for colonoscopy today. The patient is very cachectic and weak appearing. He somewhat pale. He denies any chest pain or chest discomfort. He denies any abdominal discomfort. He also denies any difficulty breathing and shortness breath cough wheezing or phlegm production. Microbiologic studies are negative. Chest x-ray from February 01 shows resolving left lower lobe infiltrate/pneumonia. White count 5.6, hemoglobin 9.2 , hematocrit 30.2, and platelet count 488,000. Sodium 134, potassium 4.2, chloride 99, CO2 28, BUN 9 and creatinine 0.62. Anion gap is normal. Progress note dated 02/05/2018 This is a 72-year-old male with history of acute hypoxemic respiratory failure, requiring intubation and mechanical ventilation secondary to community acquired pneumonia. He was extubated on January 28. The patient has a history of symptomatic anemia and possible myeloproliferative disorder, chronic alcohol abuse, troponin leak, PVCs, generalized weakness and medical debility, diverticulosis, bilateral pleural effusions, status post thoracentesis, sepsis/ septic shock and multiple other medical problems. The patient has been waiting for a general medical floor bed here for a couple days now. He did have a colonoscopy and EGD which revealed a hiatal hernia, diverticular disease, and a polyp. The patient has been stable for the last couple of days. Currently not receiving any supplemental oxygen or IV fluids. Microbiologic studies are negative. Lab data, medications and x-rays are all reviewed. Objective - Vital Signs Vital signs: Vital Signs Temp 98.0 F 02/05/18 02:00 Pulse 76 02/05/18 04:00 Resp 11 L 02/05/18 04:00 BP 108/70 02/05/18 04:00 Pulse Ox 97 02/05/18 04:00 Intake & Output 02/04/18 02/05/18 02/05/18 18:59 06:59 18:59 Intake Total 500 500 Output Total 326 800 Balance 174 -300 Weight 49.5 kg 48.9 kg Intake: Oral 500 500 Output: Urine 325 800 Urine/Stool Mix 1 Other: Voiding Method Urinal Urinal # Voids 1 # Bowel Movements 1 ABP, PAP, CO, CI - Last Documented Arterial Blood Pressure 93/57 - Exam No acute distress, oriented 3. Very debilitated and cachectic appearing. Not requiring any supplemental oxygen. HEENT examination is grossly unremarkable. Mucous membranes are moist. No oral lesions. Neck supple. Full range of motion. No adenopathy thyromegaly or neck vein distention. Cardiovascular examination reveals regular rhythm rate. S1-S2 normal. No S3 or S4. No discernible murmur noted. Heart sounds are distant. Lungs reveal mostly clear breath sounds. A few scattered rhonchi noted. No wheezes. No crackles. Breath sounds are equal bilaterally but diminished throughout. Abdomen soft bowel sounds are heard. No masses or tenderness. Extremities are intact. No cyanosis clubbing or edema. Skin is without rash or lesion. Neurologic examination is brief but nonfocal. - Labs CBC & Chem 7: 02/05/18 04:38 02/05/18 04:38 Labs: Abnormal Lab Results - Last 24 Hours (Table) 02/04/18 02/04/18 02/05/18 Range/Units 07:11 07:11 04:38 RBC 3.11 L 3.28 L (4.30-5.90) m/uL Hgb 9.4 L 9.5 L (13.0-17.5) gm/dL Hct 30.0 L 31.0 L (39.0-53.0) % MCHC 30.6 L (31.0-37.0) g/dL RDW 21.7 H 21.5 H (11.5-15.5) % Plt Count 598 H 626 H (150-450) k/uL Lymphocytes # 0.9 L (1.0-4.8) k/uL Sodium (137-145) mmol/L Creatinine 0.57 L (0.66-1.25) mg/dL Glucose (74-99) mg/dL Phosphorus (2.5-4.5) mg/dL 02/05/18 Range/Units 04:38 RBC (4.30-5.90) m/uL Hgb (13.0-17.5) gm/dL Hct (39.0-53.0) % MCHC (31.0-37.0) g/dL RDW (11.5-15.5) % Plt Count (150-450) k/uL Lymphocytes # (1.0-4.8) k/uL Sodium 134 L (137-145) mmol/L Creatinine 0.56 L (0.66-1.25) mg/dL Glucose 108 H (74-99) mg/dL Phosphorus 4.8 H (2.5-4.5) mg/dL Assessment and Plan Assessment: Assessment Acute hypoxemic respiratory failure secondary to community-acquired pneumonia, requiring intubation and mechanical ventilation with subsequent final extubation on January 28 Symptomatic anemia, possibly secondary to myeloproliferative disorder 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 There was no active bleeding. Plan: Plan dated 02/02/2018 The patient's currently receiving supplemental oxygen. Respiratory status seems to be reasonably stable. The patient is receiving a basic IV of saline at 20 mL an hour. The patient is apparently scheduled for a colonoscopy today to evaluate the GI tract and possible source of blood loss causing his anemia. The patient's labs medications and x-rays are reviewed. We will continue to follow. Prognosis is guarded. The patient appears to be very frail. Current microbiologic studies are negative. Critical care time 31 minutes Plan dated 02/05/2018 White count is 6.8 hemoglobin is stable at 9.5. Hematocrit is 31 with a platelet count of 626,000. Sodium 134 potassium chloride CO2 anion gap BUN and creatinine all normal. Medications are reviewed and are appropriate. The patient's updrafts could be discontinued. Additional recommendations and suggestions are forthcoming. Patient is awaiting a bed the general medical floor. Time with Patient: Less than 30
[2018-02-05 08:02] VITALS: TEMP 98.3
[2018-02-05] MEDS: PANTOPRAZOLE 40 MG TABLET PO SCH (09:13)
[2018-02-05] MEDS: FUROSEMIDE 40 MG TAB PO SCH (09:13)
[2018-02-05] MEDS: NICOTINE 21MG/24HR PATCH TRANSDERM SCH (09:13)
--- NOTE | 2018-02-05 10:05 | P.DS ---
Providers Date of admission: 01/21/18 07:03 Expected date of discharge: 02/05/18 Attending physician: Bette Lowry MD Consults: 01/21/18 09:52 Consult Physician Routine Consulting Provider: Bronson Bonner Consult Reason/Comments: anemia Do you want consulting provider notified?: Yes 01/21/18 10:16 Consult Physician Routine Consulting Provider: Maxime Dennis Consult Reason/Comments: lower extremity weakness Do you want consulting provider notified?: Yes 01/22/18 19:18 Consult Physician Routine Consulting Provider: Wil Anderson Consult Reason/Comments: spiculated lung lesion Do you want consulting provider notified?: Yes, Notify in am Primary care physician: Stated None Hospital Course: This is a 72-year-old male with very complex past medical history noted below significant for tobacco and alcohol abuse who presented to the emergency room originally with a syncopal episode and after collapsing to the floor. He was evaluated in the emergency room and was noted to have severe anemia with a hemoglobin of 5.54 presentation. Patient was managed aggressively and was admitted to the hospital. His overall condition continued to worsen and eventually he was admitted to the ICU with acute respiratory failure and was sedated and intubated. Patient was extubated and then reintubated throughout this hospital stay. He was seen and evaluated by multiple specialists including pulmonology, ICU, GI, infectious disease, and neurology. Below is a list of his medical problems addressed during this hospitalization. 1. Sigmoid diverticulitis noted on CT on presentation: Patient was started on Zosyn and Levoloxacin IV. Zosyn was discontinued and currently on Levaquin for underlying pneumonia. Seen and evaluated by gastroenterology - patient underwent EGD and colonoscopy on 02/02 showing a hiatal hernia with no obvious esophagitis, no ulcers or bleeding, evidence of diverticulosis with no evidence of acute diverticulitis or strictures. One polyp was a and there was no obvious large polyp or cancer. 2. Symptomatic anemia: Now hemoglobin stable s/p 3 units PRBC on presentation. FOBT +. Iron studies are consistent with anemia of chronic disease. TSH, Folate and B12 are within normal limits. LDH elevated, indicating hemolysis. Black[facility] CT and MRI L spine unrevealing of CA (though MRI L-spine is suspicious for metastatic bone marrow involvement -seen by hematology- probably reactive to acute illness). OutPT BM Bx if workup unrevealing. 3. Acute respiratory failure with hypoxia: Now resolved. Thought to be secondary to mucous plugging. Patient required intubation and mechanical ventilation during this admission. Extubated successfully on 01/28. s/p thoracentesis 01/28/2018, pleural Cx currently negative. BAL Cx negative. Continue Lasix 40 mg BID, DuoNeb scheduled and PRN. 4. LLL Pneumonia: Patient is afebrile with no leukocytosis. Previous CXR with concerns of LLL PNA. BAL Cx negative. Continue Levofloxacin as directed by pulmonology, Incentive spirometry. 5. 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 Neurology consulted - weakness thought to be due to malnutrition, hypoK and severe anemia. CPK within normal limits. Fall precautions. FU Neurology, PT/OT 6. Troponemia: Non-thrombotic troponin leak. Trop 0.14 x 2, 0.10, with EKG showing SR with PVC. Echocardiogram shows EF of 55-60%. No further testing at this time. 7. Polysubstance abuse: EtOH and tobacco. 8. Protein calorie malnutrition: BMI 17.2 FU Dietitian Patient Condition at Discharge: Poor Plan - Discharge Summary Discharge Rx Participant: No New Discharge Prescriptions: New Folic Acid 1 mg PO DAILY@1200 tab Furosemide [Lasix] 40 mg PO DAILY tab Levofloxacin [Levaquin] 750 mg PO Q24H #3 tab Multivitamins, Thera [Multivitamin (formulary)] 1 each PO DAILY@1200 tab Nicotine 21Mg/24Hr Patch [Habitrol] 1 patch TRANSDERM DAILY #15 patch Pantoprazole [Protonix] 40 mg PO DAILY tablet. Thiamine [Vitamin B-1] 100 mg PO BID@1200,1700 tab Continue Aspirin EC [Ecotrin] 325 mg PO DAILY Discharge Medication List Aspirin EC [Ecotrin] 325 mg PO DAILY 01/21/18 [History] Folic Acid 1 mg PO DAILY@1200 tab 02/05/18 [Rx] Furosemide [Lasix] 40 mg PO DAILY tab 02/05/18 [Rx] Levofloxacin [Levaquin] 750 mg PO Q24H #3 tab 02/05/18 [Rx] Multivitamins, Thera [Multivitamin (formulary)] 1 each PO DAILY@1200 tab [Rx] Nicotine 21Mg/24Hr Patch [Habitrol] 1 patch TRANSDERM DAILY #15 patch 02/05/18 [ Rx] Pantoprazole [Protonix] 40 mg PO DAILY tablet. 02/05/18 [Rx] Thiamine [Vitamin B-1] 100 mg PO BID@1200,1700 tab 02/05/18 [Rx] Follow up Appointment(s)/Referral(s): Tani Maria MD [STAFF PHYSICIAN] - 1 Week Patient Instructions/Handouts: How to Stop Smoking (DC) Discharge Disposition: TRANSFER TO SNF/ECF
[2018-02-05] MEDS: MULTIVITAMINS, THERA 1 EACH TAB PO SCH (11:34)
[2018-02-05] MEDS: FOLIC ACID 1 MG TAB PO SCH (11:34)
[2018-02-05] MEDS: LEVOFLOXACIN 750 MG TAB PO SCH (11:34)
[2018-02-05] MEDS: THIAMINE 100 MG TAB PO SCH (11:34)
[2018-02-05 12:08] VITALS: BP 109/72; PULSE 91; RESP 20
== END 2018-02-05 15:45 | DRG 823 ==
LOC: EC 02:36 → 6SEL 07:03 → 5MS5E 01-23 21:33 → 6ICU 01-24 07:07 → 2SICU 01-31 07:12
PROVIDERS: ADMIT Internal Medicine; ATTEND Internal Medicine
PROC: 30230N1 Transfusion of Nonautologous Red Blood Cells into Peripheral Vein, Open Approach (ICD-10-PCS; 2018-01-21)
PROC: 0BCB8ZZ Extirpation of Matter from Left Lower Lobe Bronchus, Via Natural or Artificial Opening Endoscopic (ICD-10-PCS; 2018-01-24)
PROC: 0BC78ZZ Extirpation of Matter from Left Main Bronchus, Via Natural or Artificial Opening Endoscopic (ICD-10-PCS; 2018-01-24)
PROC: 5A1955Z Respiratory Ventilation, Greater than 96 Consecutive Hours (ICD-10-PCS; 2018-01-24)
PROC: 0BH18EZ Insertion of Endotracheal Airway into Trachea, Via Natural or Artificial Opening Endoscopic (ICD-10-PCS; 2018-01-24)
PROC: 5A09357 Assistance with Respiratory Ventilation, Less than 24 Consecutive Hours, Continuous Positive Airway Pressure (ICD-10-PCS; 2018-01-24)
PROC: 05H633Z Insertion of Infusion Device into Left Subclavian Vein, Percutaneous Approach (ICD-10-PCS; 2018-01-24)
PROC: 04HY32Z Insertion of Monitoring Device into Lower Artery, Percutaneous Approach (ICD-10-PCS; 2018-01-24)
PROC: 4A133B1 Monitoring of Arterial Pressure, Peripheral, Percutaneous Approach (ICD-10-PCS; 2018-01-24)
PROC: 4A133J1 Monitoring of Arterial Pulse, Peripheral, Percutaneous Approach (ICD-10-PCS; 2018-01-24)
PROC: 0D9670Z Drainage of Stomach with Drainage Device, Via Natural or Artificial Opening (ICD-10-PCS; 2018-01-24)
PROC: 0B9H8ZX Drainage of Lung Lingula, Via Natural or Artificial Opening Endoscopic, Diagnostic (ICD-10-PCS; principal; 2018-01-24 09:00)
PROC: 3E0G76Z Introduction of Nutritional Substance into Upper GI, Via Natural or Artificial Opening (ICD-10-PCS; 2018-01-25)
PROC: 0W993ZX Drainage of Right Pleural Cavity, Percutaneous Approach, Diagnostic (ICD-10-PCS; 2018-01-28)
PROC: 0DJ08ZZ Inspection of Upper Intestinal Tract, Via Natural or Artificial Opening Endoscopic (ICD-10-PCS; 2018-02-02)
PROC: 0DBN8ZX Excision of Sigmoid Colon, Via Natural or Artificial Opening Endoscopic, Diagnostic (ICD-10-PCS; 2018-02-02)
DX: C94.6 Myelodysplastic disease, not elsewhere classified (principal); E43 Unspecified severe protein-calorie malnutrition; J96.01 Acute respiratory failure with hypoxia; R65.21 Severe sepsis with septic shock; J18.1 Lobar pneumonia, unspecified organism; A41.9 Sepsis, unspecified organism; E87.2 Acidosis; R64 Cachexia; Z68.1 Body mass index [BMI] 19.9 or less, adult; K57.32 Diverticulitis of large intestine without perforation or abscess without bleeding; J98.11 Atelectasis; I24.8 Other forms of acute ischemic heart disease; J90 Pleural effusion, not elsewhere classified; E87.4 Mixed disorder of acid-base balance; D63.8 Anemia in other chronic diseases classified elsewhere; G73.7 Myopathy in diseases classified elsewhere; J84.10 Pulmonary fibrosis, unspecified; J43.9 Emphysema, unspecified; M48.04 Spinal stenosis, thoracic region; E83.51 Hypocalcemia; T17.990A Other foreign object in respiratory tract, part unspecified in causing asphyxiation, initial encounter; K76.0 Fatty (change of) liver, not elsewhere classified; Z66 Do not resuscitate; M48.061 Spinal stenosis, lumbar region without neurogenic claudication; M47.816 Spondylosis without myelopathy or radiculopathy, lumbar region; I10 Essential (primary) hypertension; I49.3 Ventricular premature depolarization; R29.6 Repeated falls; K44.9 Diaphragmatic hernia without obstruction or gangrene; D12.5 Benign neoplasm of sigmoid colon; G31.9 Degenerative disease of nervous system, unspecified; F10.20 Alcohol dependence, uncomplicated; I70.0 Atherosclerosis of aorta; E87.6 Hypokalemia; J32.9 Chronic sinusitis, unspecified; H91.90 Unspecified hearing loss, unspecified ear; F19.10 Other psychoactive substance abuse, uncomplicated; R32 Unspecified urinary incontinence; F17.210 Nicotine dependence, cigarettes, uncomplicated; Z71.6 Tobacco abuse counseling; Z79.82 Long term (current) use of aspirin; Z87.01 Personal history of pneumonia (recurrent); Z82.49 Family history of ischemic heart disease and other diseases of the circulatory system; Z83.79 Family history of other diseases of the digestive system; W18.30XA Fall on same level, unspecified, initial encounter; Y92.002 Bathroom of unspecified non-institutional (private) residence as the place of occurrence of the external cause; R26.2 Difficulty in walking, not elsewhere classified
CPT/HCPCS: 31624; 36415; 36600; 43235; 45385; 70450; 71045; 71260; 72148; 74177; 76604; 80048; 80051; 80053; 81003; 82272; 82330; 82550; 82553; 82607; 82728; 82746; 82747; 82805; 82945; 83036; 83540; 83550; 83605; 83615; 83735; 83883; 83921; 84100; 84132; 84157; 84165; 84443; 84484; 85025; 85027; 85045; 85610; 85730; 86334; 86850; 86900; 86901; 86920; 87070; 87102; 87205; 87252; 87496; 87498; 87502; 87529; 87634; 87798; 88108; 88305; 88341; 88342; 89050; 93005; 93306; 94002; 94003; 94640; 94660; 96360; 96361; 99291

== ENCOUNTER 2018-09-06 19:24 | Inpatient (IN) | payer MEDICARE ==
--- NOTE | 2018-09-06 21:09 | CT ---
EXAMINATION TYPE: CT brain lora braxton con DATE OF EXAM: 09/06/2018 COMPARISON: CT brain 01/21/2018 HISTORY: Fall. CT DLP: 1255.6 mGycm Automated exposure control for dose reduction was used. TECHNIQUE: CT scan of the head and cervical spine are performed without contrast. FINDINGS: There is cerebral cortical atrophy. There is no mass effect nor midline shift. There is n o sign of intracranial hemorrhage. The calvarium is intact. Cervical vertebra have fairly normal alignment. There is degenerative disc space narrowing at C6-7 wi th spurring of the endplates. Posterior elements are intact. Facet joints are intact. Spinal base is intact. There is no evidence of a fracture. IMPRESSION: Moderate cerebral atrophy. No acute intracranial abnormality. No change. Mild spondylosis at C6-7. No fracture seen.
--- NOTE | 2018-09-06 21:39 | ED ---
Fall HPI - General Source: patient, EMS Mode of arrival: EMS <Freddie Jasmine - Last Filed: 09/06/18 21:27> <Robina Bajwa P - Last Filed: 09/07/18 03:02> - General Chief Complaint: Fall Stated Complaint: Fall Time Seen by Provider: 09/06/18 19:36 - History of Present Illness Initial Comments: Patient is a 73-year-old male presenting to emergency Department after fall. Patient reports tripping while walking and fell backwards hitting the fridge in the back of his head. Patient denied loss of consciousness at the time of incident. Patient reports his daughter called the ambulance and he was brought to the emergency department. Patient reports that he feels "fine" and wants to go home. Patient denies any headaches, lightheadedness, dizziness, blurry vision, nausea, vomiting, diarrhea. Patient denies pain to the rest of his body. Patient denies bleeding on the site of trauma. Patient reports he was drinking 2 ounces of [place] where before time of incident. Patient denies taking any medication to alleviate the symptoms. Patient denies taking any blood thinners. (Freddie Jasmine) - Related Data Home Medications Medication Instructions Recorded Confirmed Aspirin EC [Ecotrin] 325 mg PO QID PRN 01/21/18 09/06/18 Allergies Allergy/AdvReac Type Severity Reaction Status Date / Time No Known Allergies Allergy Verified 09/06/18 19:50 Review of Systems ROS Other: All systems not noted in ROS Statement are negative. <Freddie Jasmine - Last Filed: 09/06/18 21:27> ROS Other: All systems not noted in ROS Statement are negative. <Robina Bajwa P - Last Filed: 09/07/18 03:02> ROS Statement: Those systems with pertinent positive or pertinent negative responses have been documented in the HPI. Past Medical History Past Medical History: No Reported History Additional Past Medical History / Comment(s): Severe anemia, previous pneumonia involving the left lower lobe for which she was hospitalized at [facility] in 2016, chronic smoker, alcoholism, malnutrition History of Any Multi-Drug Resistant Organisms: None Reported Past Surgical History: No Surgical Hx Reported Additional Past Surgical History / Comment(s): Pt states he has never had surgery. Past Anesthesia/Blood Transfusion Reactions: Unable to Obtain Past Psychological History: No Psychological Hx Reported Smoking Status: Current every day smoker Past Alcohol Use History: Abuse, Daily, Heavy Past Drug Use History: None Reported - Past Family History Mother Additional Family Medical History / Comment(s): from cirrhosis Father Additional Family Medical History / Comment(s): from [place] <Freddie Jasmine - Last Filed: 09/06/18 21:27> General Exam Limitations: no limitations General appearance: alert, in no apparent distress Head exam: Present: atraumatic, other (Contusion to occipital lobe.) Eye exam: Present: normal appearance, PERRL, EOMI Pupils: Present: normal accommodation ENT exam: Present: normal exam, TM's normal bilaterally Respiratory exam: Present: normal lung sounds bilaterally Cardiovascular Exam: Present: regular rate, normal rhythm, normal heart sounds Back exam: Present: normal inspection, full ROM Neurological exam: Present: alert, oriented X3 Psychiatric exam: Present: normal affect, normal mood Skin exam: Present: warm, normal color <Freddie Jasmine - Last Filed: 09/06/18 21:27> Course Vital Signs 09/06/18 09/06/18 19:26 22:05 Temperature 97.2 F L Pulse Rate 64 76 Respiratory 19 19 Rate Blood Pressure 111/84 108/49 O2 Sat by Pulse 99 99 Oximetry Medical Decision Making <Freddie Jasmine - Last Filed: 09/06/18 21:27> - Lab Data Result diagrams: 09/06/18 23:14 09/06/18 23:14 <Robina Bajwa - Last Filed: 09/07/18 03:02> - Medical Decision Making Patient is a 73-year-old male presenting to emergency Department after fall. An alcohol breathalyzer test was administered measuring 0.0720, level. CT of brain and C-spine is negative for any acute intercranial changes or fractures. Patient reports that he is ready to go home. Patient advised to follow-up with primary care. Patient advised to return to the emergency department symptoms worsen. Case discussed with physician. (Freddie Jasmine) Patient care was discussed with his daughter who expresses concern that the patient is becoming progressively more weak, he's not been eating he's only been having alcohol. She reports that despite family's attempts to hide alcohol from the patient has been able to acquire daily. She reports that he has been having frequent falls after falling today was unable to get off the floor and she found him on the ground when she returned home from work. She does not feel the patient is safe for discharge home she would like him further evaluated for underlying medical problems and observed for alcohol withdrawal. Labs were ordered, patient is noted to have hypokalemia potassium of only 2.5 in addition the patient's albumin is very low consistent with the history of poor nutrition. At this time we will plan to admit the patient for electrolyte repletion and will place him on a [facility] protocol for a call withdrawal. (Robina Bajwa) - Lab Data Lab Results 09/06/18 09/06/18 09/06/18 Range/Units 23:14 23:14 23:14 WBC 6.1 (3.8-10.6) k/uL RBC 2.68 L (4.30-5.90) m/uL Hgb 9.4 L (13.0-17.5) gm/dL Hct 27.8 L (39.0-53.0) % MCV 103.7 H (80.0-100.0) fL MCH 35.0 (25.0-35.0) pg MCHC 33.7 (31.0-37.0) g/dL RDW 15.9 H (11.5-15.5) % Plt Count 439 (150-450) k/uL Neutrophils % 73 % Lymphocytes % 18 % Monocytes % 5 % Eosinophils % 2 % Basophils % 0 % Neutrophils # 4.5 (1.3-7.7) k/uL Lymphocytes # 1.1 (1.0-4.8) k/uL Monocytes # 0.3 (0-1.0) k/uL Eosinophils # 0.1 (0-0.7) k/uL Basophils # 0.0 (0-0.2) k/uL Macrocytosis Moderate Sodium 134 L (137-145) mmol/L Potassium 2.5 L* (3.5-5.1) mmol/L Chloride 94 L (98-107) mmol/L Carbon Dioxide 31 H (22-30) mmol/L Anion Gap 9 mmol/L BUN 13 (9-20) mg/dL Creatinine 0.87 (0.66-1.25) mg/dL Est GFR (CKD-EPI)AfAm >90 (>60 ml/min/1.73 sqM) Est GFR (CKD-EPI)NonAf 87 (>60 ml/min/1.73 sqM) Glucose 83 (74-99) mg/dL Calcium 7.4 L (8.4-10.2) mg/dL Magnesium 2.3 (1.6-2.3) mg/dL Total Bilirubin 0.2 (0.2-1.3) mg/dL AST 31 (17-59) U/L ALT 20 L (21-72) U/L Alkaline Phosphatase 147 H (38-126) U/L Creatine Kinase 143 (55-170) U/L NT-Pro-B Natriuret Pep 525 pg/mL Total Protein 5.6 L (6.3-8.2) g/dL Albumin 2.5 L (3.5-5.0) g/dL TSH 3.110 (0.465-4.680) mIU/L Disposition Is patient prescribed a controlled substance at d/c from ED?: No Time of Disposition: 21:46 <Freddie Jasmine - Last Filed: 09/06/18 21:27> <Robina Bajwa - Last Filed: 09/07/18 03:02> Clinical Impression: Fall, Hypokalemia, Very poor nutrition, AA (alcohol abuse), Hypocalcemia, Pancytopenia, Lower extremity edema Disposition: ADMITTED IP TO THIS HOSP Condition: Stable
[2018-09-06 23:30] LABS: Basophils % (A) 0 %; Eosinophils # (A) 0.1 k/uL (0-0.7); Eosinophils % (A) 2 %; HCT 27.8 % (39.0-53.0); HGB 9.4 gm/dL (13.0-17.5); Lymphocytes # (A) 1.1 k/uL (1.0-4.8); Lymphocytes % (A) 18 %; MCHC 33.7 g/dL (31.0-37.0); MCV 103.7 fL (80.0-100.0); Macrocytosis Moderate; Mean Platelet Volume 7.1; Monocytes # (A) 0.3 k/uL (0-1.0); Monocytes % (A) 5 %; Neutrophils # (A) 4.5 k/uL (1.3-7.7); Neutrophils % (A) 73 %; Platelet Count 439 k/uL (150-450); RBC 2.68 m/uL (4.30-5.90); RDW 15.9 % (11.5-15.5); WBC 6.1 k/uL (3.8-10.6)
[2018-09-06 23:53] LABS: ALT 20 U/L (21-72); AST 31 U/L (17-59); African American GFR (CKD) >90 (>60 ml/min/1.73 sqM); Albumin 2.5 g/dL (3.5-5.0); Alkaline Phosphatase 147 U/L (38-126); Anion Gap 9 mmol/L; Blood Urea Nitrogen 13 mg/dL (9-20); Calcium 7.4 mg/dL (8.4-10.2); Carbon Dioxide 31 mmol/L (22-30); Chloride 94 mmol/L (98-107); Creatine Kinase 143 U/L (55-170); Glucose 83 mg/dL (74-99); Magnesium 2.3 mg/dL (1.6-2.3); Sodium 134 mmol/L (137-145); Total Bilirubin 0.2 mg/dL (0.2-1.3); Total Protein 5.6 g/dL (6.3-8.2)
[2018-09-07 00:09] LABS: Potassium 2.5 mmol/L (3.5-5.1)
[2018-09-07] MEDS ORDERED: Potassium Replacement Protocol 1 EACH MISC MISCELLANE PRN (00:11)
[2018-09-07] MEDS ORDERED: NALOXONE 0.4 MG/ML 1 ML VIAL IV PRN (00:12)
[2018-09-07] MEDS: POTASSIUM CHLORIDE ER 20 MEQ TAB.ER PO SCH ×3 (00:28→03:55)
[2018-09-07] MEDS: POTASSIUM CHLORIDE 10 MEQ in WATER FOR INJECTION 1 100ML.BAG IVPB SCH ×7 (00:28→09:31)
[2018-09-07] MEDS ORDERED: ONDANSETRON 4 MG/2 ML VIAL IVP PRN (00:32)
[2018-09-07] MEDS ORDERED: ALPRAZolam 0.25 MG TAB PO PRN (00:32)
[2018-09-07] MEDS ORDERED: IBUPROFEN 400 MG TAB PO PRN (00:32)
[2018-09-07] MEDS ORDERED: THIAMINE 100 MG/ML 2 ML VIAL IM STA (00:36)
[2018-09-07] MEDS ORDERED: LORazepam 2 MG/ML INJ IV PRN ×3 (00:36)
[2018-09-07] MEDS ORDERED: SODIUM CHLORIDE 0.9% 1,000 ML IV SCH (00:45)
[2018-09-07] MEDS ORDERED: SODIUM CHLORIDE 0.9% 500 ML 500 ML IV ONE (02:26)
[2018-09-07 03:51] LABS: Glucose,Whole Blood 115 mg/dL (75-99)
[2018-09-07] MEDS: MULTIVITAMINS, THERA 1 EACH TAB PO SCH (08:56)
[2018-09-07] MEDS: FAMOTIDINE 20 MG TAB PO SCH ×2 (08:57→21:07)
--- NOTE | 2018-09-07 10:16 | P.HPIM ---
History of Present Illness This is a pleasant 73 years old male with past medical history of anemia, alcohol abuse, cigarette smoker, malnutrition. Patient states that he came to the hospital because he fell on 520 0 2 PM, when he felt backwards and he hit his head. After that he was lying on the floor without losing consciousness, no dizziness or syncope prior or after the fall. He thinks that his room made Kiran or his daughter called EMS for him. Patient denies headache. No chest pain or dyspnea. He states that he has chronic cough with phlegm. No chest pain or abdominal pain. No nausea vomiting. No change in urine or bowel habits. No f ever. He's not sure about his walking and how was he do one prior to fall. Patient is afebrile, blood pressure 102/73, heart rate 68, respiratory rate 21, is saturating 88% on room air. His CBC showed normal WBC, hemoglobin 9.4. Platelet 439. Electrolytes showing sodium 134, potassium 2.5, went up to 4.9. Creatinine 0.8. Glucose 115. Liver enzymes elevated rate low albumin at 2.5. TSH 3.1. CAT scan of the head showing cerebral atrophy, CT of the cervical spine showing no fracture as per radiologist. Patient has already been started on CIWA protocol. Patient admitted to the intensive care unit upon admission Review of Systems CONSTITUTIONAL: No fever, no malaise, no fatigue. HEENT: No recent visual problems or hearing problems. Denied any sore throat. CARDIOVASCULAR: No orthopnea, PND, no palpitations, no syncope. PULMONARY: No shortness of breath, no cough, no hemoptysis. GASTROINTESTINAL: No diarrhea, no nausea, no vomiting, no abdominal pain. Normoactive bowel sounds. NEUROLOGICAL: No headaches, no weakness, no numbness. HEMATOLOGICAL: Denies any bleeding or petechiae. GENITOURINARY: Denies any burning micturition, frequency, or urgency. MUSCULOSKELETAL/RHEUMATOLOGICAL: Denies any joint pain, swelling, or any muscle pain. ENDOCRINE: Denies any polyuria or polydipsia. Past Medical History Past Medical History: No Reported History Additional Past Medical History / Comment(s): Severe anemia, previous pneumonia involving the left lower lobe for which she was hospitalized at [facility] in 2016, chronic smoker, alcoholism, malnutrition History of Any Multi-Drug Resistant Organisms: None Reported Past Surgical History: No Surgical Hx Reported, Tonsillectomy Additional Past Surgical History / Comment(s): Pt states he has never had surgery. Past Anesthesia/Blood Transfusion Reactions: Unable to Obtain Past Psychological History: No Psychological Hx Reported Additional Psychological History / Comment(s): Pt resides in a home alone. He just got a walker yesterday. He does not have a star [place] mail driver's license. He gets to appointments by friends. Friends also help him get food. Smoking Status: Current every day smoker Past Alcohol Use History: Abuse, Daily, Heavy Additional Past Alcohol Use History / Comment(s): Pt started smoking in 1967 and smokes 1-1.5 ppd. He drinks approximately 2-3 shots of liqour a day, he doesn't measure with a shot glass, he just pour liqour into a "rock" glass. Past Drug Use History: None Reported - Past Family History Mother Additional Family Medical History / Comment(s): from cirrhosis Father Additional Family Medical History / Comment(s): from [place] Medications and Allergies Home Medications Medication Instructions Recorded Confirmed Type Aspirin EC [Ecotrin] 325 mg PO QID PRN 01/21/18 09/06/18 History Allergies Allergy/AdvReac Type Severity Reaction Status Date / Time No Known Allergies Allergy Verified 09/06/18 19:50 Physical Exam Vitals: Vital Signs Temp Pulse Resp BP Pulse Ox 09/07/18 08:00 98.4 F 68 21 102/73 88 L 09/07/18 07:00 71 34 H 102/73 94 L 09/07/18 06:00 66 23 105/73 97 09/07/18 05:00 57 L 19 89/67 94 L 09/07/18 04:10 67 20 114/54 96 09/07/18 04:00 63 19 114/54 95 09/07/18 03:50 98.2 F 64 21 114/54 97 09/07/18 01:15 98.2 F 15 95 09/06/18 22:05 76 19 108/49 99 09/06/18 19:26 97.2 F L 64 19 111/84 99 Intake and Output 09/06/18 09/07/18 09/07/18 22:59 06:59 14:59 Intake Total 450 350 Output Total 100 Balance 350 350 Intake: IV 450 350 Potassium Chloride 10 meq 300 200 In Water For Injection 1 100ml.bag @ 100 mls/hr IVPB Q1HR SANDY Rx#: [id number] Sodium Chloride 0.9% 1, 150 150 000 ml @ 50 mls/hr IV . Q20H SANDY Rx#:[id number] Output: Urine 100 Other: Voiding Method Urinal Urinal Weight 65.771 kg GENERAL: The patient is alert and oriented x3, not in any acute distress. Well developed, well nourished. HEENT: Pupils are round and equally reacting to light. EOMI. No scleral icterus. No conjunctival pallor. Normocephalic, atraumatic. No pharyngeal erythema. No thyromegaly. CARDIOVASCULAR: S1 and S2 present. No murmurs, rubs, or gallops. PULMONARY: Chest is clear to auscultation, no wheezing or crackles. ABDOMEN: Soft, nontender, nondistended, normoactive bowel sounds. No palpable organomegaly. MUSCULOSKELETAL: No joint swelling or deformity. EXTREMITIES: No cyanosis, clubbing, or pedal edema. NEUROLOGICAL: Gross neurological examination did not reveal any focal deficits. SKIN: No rashes. Results CBC & Chem 7: 09/06/18 23:14 09/07/18 08:54 Labs: Abnormal Lab Results - Last 24 Hours (Table) 09/06/18 09/06/18 09/07/18 Range/Units 23:14 23:14 03:39 RBC 2.68 L (4.30-5.90) m/uL Hgb 9.4 L (13.0-17.5) gm/dL Hct 27.8 L (39.0-53.0) % MCV 103.7 H (80.0-100.0) fL RDW 15.9 H (11.5-15.5) % Sodium 134 L (137-145) mmol/L Potassium 2.5 L* (3.5-5.1) mmol/L Chloride 94 L (98-107) mmol/L Carbon Dioxide 31 H (22-30) mmol/L POC Glucose (mg/dL) 115 H (75-99) mg/dL Calcium 7.4 L (8.4-10.2) mg/dL ALT 20 L (21-72) U/L Alkaline Phosphatase 147 H (38-126) U/L Total Protein 5.6 L (6.3-8.2) g/dL Albumin 2.5 L (3.5-5.0) g/dL Thrombosis Risk Factor Assmnt - Choose All That Apply Each Factor Represents 1 point: Swollen legs (current) Each Risk Factor Represents 2 Points: Age 61-74 years Other congenital or acquired thrombophilia - If yes, enter type in comment: No Thrombosis Risk Factor Assessment Total Risk Factor Score: 3 Thrombosis Risk Factor Assessment Level: Moderate Risk Assessment and Plan Assessment: Fall Alcohol withdrawal Hypokalemia Alcohol abuse Nicotine dependence Anemia calories-protein malnutrition Plan: This is a pleasant 73 years old male who presents because of alcohol withdrawal and fall. Continue with CIWA protocol. Continue with vitamins. Continue with gentle hydration. Replace electrolytes and monitors them. Labs and medication were reviewed.. Continue same treatment. Continue with sym ptomatic treatment. Resume home medication. Monitor lytes and vitals. DVT and GI prophylaxis. Further recommendations of the clinical course of the patient DVT prophylaxis: Subcutaneous heparin GI Prophylaxis: Pepcid PT/OT: Pending Prognosis is guarded
[2018-09-07] MEDS: LORazepam 2 MG/ML INJ IV PRN (13:49)
--- NOTE | 2018-09-07 16:23 | XR ---
EXAMINATION TYPE: XR chest 1V portable DATE OF EXAM: 09/07/2018 COMPARISON: 02/01/2018 HISTORY: Shortness of breath TECHNIQUE: Single frontal view of the chest is obtained. FINDINGS: There are calcified granuloma. Left lower lobe infiltrate and small effusion stable. No pn eumothorax. Diffuse osteopenia. Arthropathy of the shoulders. Heart size stable. Underlying COPD susp ected. Atherosclerotic change aorta. Heart size normal. IMPRESSION: 1. Stable left-sided consolidation and pleural effusion. Correlate for pneumonia otherwise consider a symmetric pulmonary edema.
[2018-09-07 16:35] LABS: ABG Base Excess 7.7 mmol/L; ABG HCO3 31 mmol/L (21-25); ABG Oxygen Saturation 92.4 % (94-97); ABG PCO2 39 mmHg (35-45); ABG PO2 69 mmHg (83-108); ABG TCO2 32 mmol/L (19-24); Allen Test Performed? Yes
[2018-09-07] MEDS: THIAMINE 100 MG TAB PO SCH ×2 (17:19→19:07)
[2018-09-07] MEDS: PIPERACILLIN-TAZOBACTAM 3.375 GM in SODIUM CHLORIDE 0.9% 100 ML IVPB SCH (17:22)
--- NOTE | 2018-09-07 18:44 | P.CNPUL ---
History of Present Illness Consult date: 09/07/18 Requesting physician: Chrsi E Sheet Reason for consult: dyspnea, hypoxemia, pneumonia, abnormal CXR/CT Chief complaint: Hypoxemia, falls, possible aspiration pneumonia, alcohol intoxication History of present illness: This is a 73-year-old white male patient with history of chronic alcoholism, chronic smoker, chronic anemia, previous pneumonia, malnutrition related to history of alcoholism, was in to the hospital on 09/06/2018 for evaluation of falls at home. Patient was brought in by an ambulance, and reportedly he tripped while walking and fell backwards hitting back of his head on the fridge. There was no loss of consciousness at the time of the incident, and patient's daughter called the ambulance with the patient for evaluation. The patient was drinking prior to the incident. He denies any headaches, lightheadedness, dizziness, denied any vision changes, no nausea vomiting or diarrhea. Not on any blood thinners. CT of the head and cervical spine was completed and showed moderate cerebral atrophy, no acute intracranial abnormality and mild spondylosis at C6 and 7 no acute fractures were seen. He was kept overnight in the emergency department, he was started on CIWA protocol for acute alcohol withdrawal syndrome. Lab work was completed in the emergency department and showed a white blood cell count of 6.1, hemoglobin of 9.4, sodium was 134, potassium is 2.5 and this was replaced per protocol, chloride was 94, CO2 is 31, BUN was 13 creatinine was 0.87, AST is 31, ALT was 20, alkaline phosphatase was 147, proBNP was 525. Patient was noted to have decreased oxygenation, decreased sats, after Ativan was given proceed with protocol. His decreased air movement auscultated on the left side, he was placed on 100% nonrebreather and his pulse ox is 88-89%, chest x-ray was obtained, showing stable left-sided consolidation and pleural effusion, hemodynamically related to aspiration pneumonia and asymmetric pulmonary edema. She was started on breathing treatments, antibiotics in the form of Zosyn, and is admitted to the intensive care unit for closer monitoring. She was given IV hydration in the emergency department with a liter bolus, and maintenance IV is 0.9 normal saline at a rate of 50 ML per hour. During my evaluation patient is quite lethargic, but opens eyes to verbal stimuli, and he is quite confused, he is only oriented to person, and he thinks he is in [place], he remains on 100% nonrebreather his current pulse ox is 90-92%, hemodynamically stable, blood pressure is 112/86, afebrile. Review of Systems All systems: negative Constitutional: Denies chills, Denies fever Eyes: denies blurred vision, denies pain Ears, nose, mouth and throat: Denies headache, Denies sore throat Cardiovascular: Denies chest pain, Denies shortness of breath Respiratory: Denies cough Gastrointestinal: Denies abdominal pain, Denies diarrhea, Denies nausea, Denies vomiting Musculoskeletal: Denies myalgias Integumentary: Denies pruritus, Denies rash Neurological: Reports balance difficulties, Reports change in mentation, Reports gait dysfunction, Denies numbness, Denies weakness Psychiatric: Denies anxiety, Denies depression Endocrine: Denies fatigue, Denies weight change Past Medical History Past Medical History: No Reported History Additional Past Medical History / Comment(s): Severe anemia, previous pneumonia involving the left lower lobe for which she was hospitalized at [facility] in 2016, chronic smoker, alcoholism, malnutrition History of Any Multi-Drug Resistant Organisms: None Reported Past Surgical History: No Surgical Hx Reported, Tonsillectomy Additional Past Surgical History / Comment(s): Pt states he has never had surgery. Past Anesthesia/Blood Transfusion Reactions: Unable to Obtain Past Psychological History: No Psychological Hx Reported Additional Psychological History / Comment(s): Pt resides in a home alone. He just got a walker yesterday. He does not have a hog driver's license. He gets to appointments by friends. Friends also help him get food. Smoking Status: Current every day smoker Past Alcohol Use History: Abuse, Daily, Heavy Additional Past Alcohol Use History / Comment(s): Pt started smoking in 1967 and smokes 1-1.5 ppd. He drinks approximately 2-3 shots of liqour a day, he doesn't measure with a shot glass, he just pour liqour into a "rock" glass. Past Drug Use History: None Reported - Past Family History Mother Additional Family Medical History / Comment(s): from cirrhosis Father Additional Family Medical History / Comment(s): from [place] Medications and Allergies Home Medications Medication Instructions Recorded Confirmed Type Aspirin EC [Ecotrin] 325 mg PO QID PRN 01/21/18 09/06/18 History Allergies Allergy/AdvReac Type Severity Reaction Status Date / Time No Known Allergies Allergy Verified 09/06/18 19:50 Physical Exam Vitals: Vital Signs Temp Pulse Pulse Resp BP BP Pulse Ox 09/07/18 18:00 71 26 H 112/86 90 L 09/07/18 17:00 60 21 108/54 92 L 09/07/18 16:12 54 L 09/07/18 16:00 97.1 F L 57 L 54 L 19 94/68 90/58 88 L 09/07/18 15:36 24 108/62 89 L 09/07/18 11:57 97.9 F 16 96/53 94 L 09/07/18 08:00 98.4 F 68 21 102/73 88 L 09/07/18 07:00 71 34 H 102/73 94 L 09/07/18 06:00 66 23 105/73 97 09/07/18 05:00 57 L 19 89/67 94 L 09/07/18 04:10 67 20 114/54 96 09/07/18 04:00 63 19 114/54 95 09/07/18 03:50 98.2 F 64 21 114/54 97 09/07/18 01:15 98.2 F 15 95 09/06/18 22:05 76 19 108/49 99 09/06/18 19:26 97.2 F L 64 19 111/84 99 Intake and Output 09/07/18 09/07/18 09/07/18 06:59 14:59 22:59 Intake Total 450 450 150 Output Total 100 30 Balance 350 450 120 Intake: IV 450 450 150 Piperacillin-Tazobactam 3 100 .375 gm In Sodium Chloride 0.9% 100 ml @ 25 mls/hr IVPB Q8HR SANDY Rx# :[id number] Potassium Chloride 10 meq 300 200 In Water For Injection 1 100ml.bag @ 100 mls/hr IVPB Q1HR SANDY Rx#: [id number] Sodium Chloride 0.9% 1, 150 250 50 000 ml @ 50 mls/hr IV . Q20H SANDY Rx#:[id number] Output: Urine 100 30 Other: Voiding Method Urinal Urinal Urinal # Voids 1 Weight 65.771 kg GENERAL EXAM: Lethargic 73-year-old confused white male, on 100% nonrebreather, with a pulse ox of 90-92%, comfortable in no apparent distress. HEAD: Normocephalic/atraumatic. EYES: Normal reaction of pupils, equal size. Conjunctiva pink, sclera white. NOSE: Clear with pink turbinates. THROAT: No erythema or exudates. NECK: No masses, no JVD, no thyroid enlargement, no adenopathy. CHEST: No chest wall deformity. Symmetrical expansion. LUNGS: Equal air entry with decreased aeration on the left side, and a few scattered rhonchi's on the right CVS: Regular rate and rhythm, normal S1 and S2, no gallops, no murmurs, no rubs ABDOMEN: Soft, nontender. No hepatosplenomegaly, normal bowel sounds, no guarding or rigidity. EXTREMITIES: No clubbing, redness, and chronic lower extremity edema, 2+ pitting edema no cyanosis, 2+ pulses and upper and lower extremities. MUSCULOSKELETAL: Muscle strength and tone normal. SPINE: No scoliosis or deformity SKIN: No rashes CENTRAL NERVOUS SYSTEM: Lethargic, but arousable to verbal stimuli, confused, oriented to person only. No focal deficits, tone is normal in all 4 extremities. Results - Laboratory Findings CBC and BMP: 09/06/18 23:14 09/07/18 08:54 ABG ABG pH 7.50 (7.35-7.45) H 09/07/18 16:33 ABG pCO2 39 mmHg (35-45) 09/07/18 16:33 ABG pO2 69 mmHg (83-108) L 09/07/18 16:33 ABG O2 Saturation 92.4 % (94-97) L 09/07/18 16:33 Abnormal lab findings: Abnormal Labs 09/06/18 09/06/18 09/07/18 23:14 23:14 03:39 RBC 2.68 L Hgb 9.4 L Hct 27.8 L MCV 103.7 H RDW 15.9 H ABG pH ABG pO2 ABG HCO3 ABG Total CO2 ABG O2 Saturation Sodium 134 L Potassium 2.5 L* Chloride 94 L Carbon Dioxide 31 H POC Glucose (mg/dL) 115 H Calcium 7.4 L ALT 20 L Alkaline Phosphatase 147 H Total Protein 5.6 L Albumin 2.5 L 09/07/18 16:33 RBC Hgb Hct MCV RDW ABG pH 7.50 H ABG pO2 69 L ABG HCO3 31 H ABG Total CO2 32 H ABG O2 Saturation 92.4 L Sodium Potassium Chloride Carbon Dioxide POC Glucose (mg/dL) Calcium ALT Alkaline Phosphatase Total Protein Albumin - Diagnostic Findings Chest x-ray: report reviewed, image reviewed Additional studies: Results of the head and cervical spine reviewed Assessment and Plan Plan: Assessment: #1. Acute hypoxemic respiratory failure related to suspected aspiration pneumonia, and mucus plugging in the left lung, chest x-ray showed left-sided consolidation and pleural effusion and the possibility of asymmetric pulmonary edema. Scrotal exam reveals decreased air movement on the left side raising a suspicion for mucus plugging #2. Acute delirium, related to acute alcohol withdrawal syndrome #3. Alcohol intoxication, falls at home, patient fell and hit his head while walking and tripping. CT head and cervical spine did not reveal any acute intracranial process or acute cervical fractures #4. Electrolyte abnormalities including mild hyponatremia, severe hypokalemia, hypochloremia, and increased CO2, hemodynamically related to patient's chronic alcoholism, poor nutrition, and dehydration #5. Chronic anemia #6. Chronic cigarette smoker #7. Chronic alcoholism with underlying malnutrition #8. Previous episode of pneumonia involving the left lower lobe in 2016 #9. Generalized weakness and debility and malnourishment Plan: Patient has been started on Zosyn for suspected aspiration pneumonia, nebulized treatments, chest x-ray has been reviewed showing left-sided consolidation and pleural effusion, mucus plugging is suspected on the left side, will do chest physiotherapy, deep breathing and coughing, avoid oversedation. May require bronchoscopy if oxygenation does not improve. Correct electrolytes per protocol, continue with IV hydration. Maintain aspiration precautions, keep the patient nothing by mouth for now, GI and DVT prophylaxis. Daily chest x-rays, daily labs, patient will remain in the intensive care unit for closer monitoring. I performed a history & physical examination of the patient and discussed their management with my nurse practitioner, Kaelyn Lamar. I reviewed the nurse practitioner's note and agree with the documented findings and plan of care. Lung sounds are positive for decreased air movement on the left side. The findings and the impression was discussed with the patient. I attest to the documentation by the nurse practitioner. Time with Patient: Greater than 30
[2018-09-07 18:51] LABS: Appearance,Urine Turbid (Clear); Bacteria,Urine Many /hpf; Bilirubin,Urine Negative (Negative); Blood,Urine Moderate (Negative); Color,Urine Yellow; Glucose,Urine (UA) Negative (Negative); Ketones,Urine Trace (Negative); Leukocyte Esterase,Urine Large (Negative); Nitrite,Urine Negative (Negative); PH, Urine 5.5 (5.0-8.0); Protein,Urine 2+ (Negative); RBC,Urine 68 /hpf (0-5); Urobilinogen,Urine <2.0 mg/dL (<2.0); WBC,Urine >182 /hpf (0-5)
[2018-09-07 18:52] LABS: Specific Gravity,Urine 1.015 (1.001-1.035)
[2018-09-07] MEDS ORDERED: SODIUM CHLORIDE 0.9% 1,000 ML IV ONE (18:56)
--- NOTE | 2018-09-07 19:11 | XR ---
EXAMINATION TYPE: XR chest 1V portable DATE OF EXAM: 09/07/2018 COMPARISON: Today HISTORY: Short of breath TECHNIQUE: Single frontal view of the chest is obtained. FINDINGS: Heart size is normal. There is some minimal infiltrate in pleural thickening at the left l mikhail base. The right lung is fairly clear. There is no pneumothorax. There is emphysema. There are james cified granulomata in the right lung. IMPRESSION: There is slight improved aeration of the left lower lobe compared to exam 3 hours ago. C OPD.
[2018-09-07] MEDS: SODIUM CHLORIDE 0.9% 1,000 ML IV SCH (19:13)
[2018-09-07] MEDS: HEPARIN SODIUM,PORCINE 5,000 UNIT/ML 1 ML VIAL SQ SCH (21:02)
--- NOTE | 2018-09-07 22:12 | PCN ---
PROCEDURE NOTE TRIPLE LUMEN CATHETER PLACEMENT: PREOPERATIVE DIAGNOSIS: Acute aspiration pneumonia with hypoxic respiratory failure. POSTOPERATIVE DIAGNOSIS: Acute aspiration pneumonia with hypoxic respiratory failure. PROCEDURE: Triple-lumen catheter insertion, right femoral vein. PROCEDURE DESCRIPTION: A time-out was completed verifying correct patient, procedure, site, positioning, and implant(s) or special equipment if applicable. The patient was placed in a dependent position appropriate for triple lumen catheter placement based on the vein to be cannulated. The patient's right groin was prepped and draped in sterile fashion. 1% Lidocaine was used to anesthetize the surrounding skin area. A triple lumen 9F Cordis catheter was introduced into the right femoral vein using Seldinger technique. The catheter was threaded smoothly over the guide wire and appropriate blood return was obtained. Each lumen of the catheter was evacuated of air and flushed with sterile saline. The catheter was then sutured in place to the skin and a sterile dressing applied. Perfusion to the extremity distal to the point of catheter insertion was checked and found to be adequate. MMODL / IJN: [id number] /
[2018-09-07 23:55] LABS: Glucose,Whole Blood 77 mg/dL (75-99)
[2018-09-08 00:08] LABS: Anisocytosis Slight; HCT 28.2 % (39.0-53.0); HGB 9.1 gm/dL (13.0-17.5); MCH 34.9 pg (25.0-35.0); MCHC 32.2 g/dL (31.0-37.0); Macrocytosis Marked; Mean Platelet Volume 7.1; Platelet Count 426 k/uL (150-450); WBC 10.5 k/uL (3.8-10.6)
[2018-09-08 00:10] LABS: MCV 108.6 fL (80.0-100.0)
[2018-09-08 00:13] LABS: INR 1.4 (<1.2); Partial Thromboplastin Time 48.2 sec (22.0-30.0); Prothrombin Time 14.5 sec (9.0-12.0)
[2018-09-08] MEDS: PIPERACILLIN-TAZOBACTAM 3.375 GM in SODIUM CHLORIDE 0.9% 100 ML IVPB SCH ×3 (00:27→15:55)
[2018-09-08 00:31] LABS: ALT 26 U/L (21-72); AST 25 U/L (17-59); African American GFR (CKD) >90 (>60 ml/min/1.73 sqM); Alkaline Phosphatase 120 U/L (38-126); Anion Gap 3 mmol/L; Blood Urea Nitrogen 13 mg/dL (9-20); Calcium 6.8 mg/dL (8.4-10.2); Carbon Dioxide 27 mmol/L (22-30); Chloride 105 mmol/L (98-107); Glucose 80 mg/dL (74-99); Potassium 3.5 mmol/L (3.5-5.1); Sodium 135 mmol/L (137-145); Total Bilirubin 0.3 mg/dL (0.2-1.3); Total Protein 4.7 g/dL (6.3-8.2)
[2018-09-08] MEDS ORDERED: SODIUM CHLORIDE 0.9% 1,000 ML IV ONE (01:22)
[2018-09-08 04:42] LABS: Anisocytosis Slight; Basophils % (A) 0 %; Eosinophils # (A) 0.1 k/uL (0-0.7); Eosinophils % (A) 1 %; HCT 27.5 % (39.0-53.0); HGB 8.7 gm/dL (13.0-17.5); Hypochromasia Slight; Lymphocytes # (A) 0.6 k/uL (1.0-4.8); Lymphocytes % (A) 6 %; MCH 34.5 pg (25.0-35.0); MCHC 31.7 g/dL (31.0-37.0); Macrocytosis Marked; Mean Platelet Volume 7.7; Monocytes # (A) 0.4 k/uL (0-1.0); Monocytes % (A) 4 %; Neutrophils # (A) 9.3 k/uL (1.3-7.7); Neutrophils % (A) 89 %; Platelet Count 381 k/uL (150-450); RBC 2.53 m/uL (4.30-5.90); RDW 16.2 % (11.5-15.5); WBC 10.4 k/uL (3.8-10.6)
[2018-09-08 05:05] LABS: ALT 23 U/L (21-72); AST 20 U/L (17-59); African American GFR (CKD) >90 (>60 ml/min/1.73 sqM); Albumin 1.8 g/dL (3.5-5.0); Alkaline Phosphatase 103 U/L (38-126); Anion Gap 4 mmol/L; Blood Urea Nitrogen 12 mg/dL (9-20); Carbon Dioxide 25 mmol/L (22-30); Chloride 107 mmol/L (98-107); Glucose 71 mg/dL (74-99); Potassium 3.3 mmol/L (3.5-5.1); Sodium 136 mmol/L (137-145); Total Bilirubin 0.3 mg/dL (0.2-1.3); Total Protein 4.3 g/dL (6.3-8.2)
[2018-09-08 05:10] LABS: Poikilocytosis (M) Present; Polychromasia Present
[2018-09-08 05:11] LABS: Calcium 6.5 mg/dL (8.4-10.2)
[2018-09-08] MEDS: SODIUM CHLORIDE 0.9% 1,000 ML IV SCH ×2 (05:13→14:40)
[2018-09-08] MEDS ORDERED: Potassium Replacement Protocol 1 EACH MISC MISCELLANE PRN (05:48)
[2018-09-08 06:02] LABS: Glucose,Whole Blood 120 mg/dL (75-99)
[2018-09-08] MEDS: POTASSIUM CHLORIDE 20 MEQ in WATER FOR INJECTION 1 100ML.BAG IVPB SCH ×2 (06:38→09:20)
--- NOTE | 2018-09-08 08:07 | P.PN ---
Subjective This is a pleasant 73 years old male with past medical history of anemia, alcohol abuse, cigarette smoker, malnutrition. Patient states that he came to the hospital because he fell on 1919 2 PM, when he felt backwards and he hit his head. After that he was lying on the floor without losing consciousness, no dizziness or syncope prior or after the fall. He thinks that his room made Kiran or his daughter called EMS for him. Patient denies headache. No chest pain or dyspnea. He states that he has chronic cough with phlegm. No chest pain or abdominal pain. No nausea vomiting. No change in urine or bowel habits. No fever. He's not sure about his walking and how was he do one prior to fall. Patient is afebrile, blood pressure 102/73, heart rate 68, respiratory rate 21, is saturating 88% on room air. His CBC showed normal WBC, hemoglobin 9.4. Platelet 439. Electrolytes showing sodium 134, potassium 2.5, went up to 4.9. Creatinine 0.8. Glucose 115. Liver enzymes elevated rate low albumin at 2.5. TSH 3.1. CAT scan of the head showing cerebral atrophy, CT of the cervical spine showing no fracture as per radiologist. Patient has already been started on CIWA protocol. Patient admitted to the intensive care unit upon admission 09/08/2018 Patient remains in the ICU for alcohol withdrawal on CIWA protocol., Yesterday evening patient got hypoxic while he is getting the Ativan. Chest x-ray was obtained which was suspicious for COPD/pneumonia. There was concern for aspiration pneumonia. Pulmonary team was been called to evaluate the patient. Right femoral line was placed, Benedict catheter with turbid urine was placed. Urinalysis was suspicious for infection. Patient was started on Zosyn. Urine culture is pending. Currently patient is saturating 97% on 6 L oxygen nasal cannula. Blood pressure is 97/54, his currently on normal saline and 1 25 mL/h. Has expiratory wheezing, Steroids is added. labs showing WBC of 10.4 K, hemoglobin 8.7. Potassium 3.3 and magnesium 2.0. Liver enzymes not elevated. CONSTITUTIONAL: No fever, no malaise, no fatigue. HEENT: No recent visual problems or hearing problems. Denied any sore throat. CARDIOVASCULAR:no palpitations, no syncope. PULMONARY: no hemoptysis. GASTROINTESTINAL: No diarrhea, no nausea, no vomiting, no abdominal pain. Normoactive bowel sounds. NEUROLOGICAL: No headaches, no weakness, no numbness. HEMATOLOGICAL: Denies any bleeding or petechiae. GENITOURINARY: Denies any burning micturition, frequency, or urgency. MUSCULOSKELETAL/RHEUMATOLOGICAL: Denies any joint pain, swelling, or any muscle pain. ENDOCRINE: Denies any polyuria or polydipsia. Medication: Motrin, Ativan, Solu-Medrol, potassium chloride, multivitamin, Zofran, Zosyn, thiamine. Normal saline drip Objective - Vital Signs Vital signs: Vital Signs Temp 97.9 F 09/08/18 04:00 Pulse 57 L 09/08/18 07:00 Resp 17 09/08/18 07:00 BP 97/54 09/08/18 07:00 Pulse Ox 97 09/08/18 07:46 Intake & Output 09/07/18 09/08/18 09/08/18 18:59 06:59 18:59 Intake Total 1001 3600 125 Output Total 60 345 25 Balance 941 3255 100 Weight 65.771 kg 65 kg Intake: IV 1001 2600 125 Piperacillin-Tazobactam 3 101 100 .375 gm In Sodium Chloride 0.9% 100 ml @ 25 mls/hr IVPB Q8HR [facility] Rx# :[id number] Potassium Chloride 10 meq 200 In Water For Injection 1 100ml.bag @ 100 mls/hr IVPB Q1HR [facility] Rx#: [id number] Sodium Chloride 0.9% 1, 1500 125 000 ml @ 125 mls/hr IV . Q8H [facility] Rx#:[id number] Sodium Chloride 0.9% 1, 700 000 ml @ 50 mls/hr IV . Q20H [facility] Rx#:[id number] Sodium Chloride 0.9% 1, 1000 000 ml @ 999 mls/hr IV . Q1H1M [facility] Rx#:[id number] Intake, IV Titration 1000 Amount Sodium Chloride 0.9% 1, 1000 000 ml @ 999 mls/hr IV . Q1H1M [facility] Rx#:[id number] Output: Urine 60 345 25 Other: Voiding Method Urinal Indwelling Catheter # Voids 1 - Exam -GENERAL: The patient is alert and oriented x3, not in any acute distress. He is weak and lethargic. he is malnourished. HEENT: Pupils are round and equally reacting to light. EOMI. No scleral icterus. No conjunctival pallor. Normocephalic, atraumatic. No pharyngeal erythema. No thyromegaly. CARDIOVASCULAR: S1 and S2 present. No murmurs, rubs, or gallops. PULMONARY: Chest is clear to auscultation, no wheezing or crackles. -ABDOMEN: Soft, nontender, nondistended, normoactive bowel sounds. No palpable organomegaly. Has Benedict catheter in a Place. He has right femoral central line MUSCULOSKELETAL: No joint swelling or deformity. EXTREMITIES: No cyanosis, clubbing, or pedal edema. NEUROLOGICAL: Gross neurological examination did not reveal any focal deficits. SKIN: No rashes. - Labs CBC & Chem 7: 09/08/18 04:36 09/08/18 04:36 Labs: Abnormal Lab Results - Last 24 Hours (Table) 09/07/18 09/07/18 09/07/18 Range/Units 16:33 18:00 22:35 RBC (4.30-5.90) m/uL Hgb (13.0-17.5) gm/dL Hct (39.0-53.0) % MCV (80.0-100.0) fL RDW (11.5-15.5) % Neutrophils # (1.3-7.7) k/uL Lymphocytes # (1.0-4.8) k/uL Macrocytosis PT (9.0-12.0) sec INR (<1.2) APTT (22.0-30.0) sec D-Dimer 1.90 H (<0.60) mg/L FEU ABG pH 7.50 H (7.35-7.45) ABG pO2 69 L (83-108) mmHg ABG HCO3 31 H (21-25) mmol/L ABG Total CO2 32 H (19-24) mmol/L ABG O2 Saturation 92.4 L (94-97) % Sodium (137-145) mmol/L Potassium (3.5-5.1) mmol/L Creatinine (0.66-1.25) mg/dL Glucose (74-99) mg/dL POC Glucose (mg/dL) (75-99) mg/dL Calcium (8.4-10.2) mg/dL Total Protein (6.3-8.2) g/dL Albumin (3.5-5.0) g/dL Urine Protein 2+ H (Negative) Urine Ketones Trace H (Negative) Urine Blood Moderate H (Negative) Ur Leukocyte Esterase Large H (Negative) Urine RBC 68 H (0-5) /hpf Urine WBC >182 H (0-5) /hpf Urine WBC Clumps Many H (None) /hpf Urine Bacteria Many H (None) /hpf 09/07/18 09/07/18 09/07/18 Range/Units 23:55 23:55 23:55 RBC 2.60 L (4.30-5.90) m/uL Hgb 9.1 L (13.0-17.5) gm/dL Hct 28.2 L (39.0-53.0) % MCV 108.6 H (80.0-100.0) fL RDW 16.0 H (11.5-15.5) % Neutrophils # (1.3-7.7) k/uL Lymphocytes # (1.0-4.8) k/uL Macrocytosis Marked A PT 14.5 H (9.0-12.0) sec INR 1.4 H (<1.2) APTT 48.2 H (22.0-30.0) sec D-Dimer (<0.60) mg/L FEU ABG pH (7.35-7.45) ABG pO2 (83-108) mmHg ABG HCO3 (21-25) mmol/L ABG Total CO2 (19-24) mmol/L ABG O2 Saturation (94-97) % Sodium 135 L (137-145) mmol/L Potassium (3.5-5.1) mmol/L Creatinine (0.66-1.25) mg/dL Glucose (74-99) mg/dL POC Glucose (mg/dL) (75-99) mg/dL Calcium 6.8 L (8.4-10.2) mg/dL Total Protein 4.7 L (6.3-8.2) g/dL Albumin 2.0 L (3.5-5.0) g/dL Urine Protein (Negative) Urine Ketones (Negative) Urine Blood (Negative) Ur Leukocyte Esterase (Negative) Urine RBC (0-5) /hpf Urine WBC (0-5) /hpf Urine WBC Clumps (None) /hpf Urine Bacteria (None) /hpf 09/08/18 09/08/18 09/08/18 Range/Units 04:36 04:36 05:50 RBC 2.53 L (4.30-5.90) m/uL Hgb 8.7 L (13.0-17.5) gm/dL Hct 27.5 L (39.0-53.0) % MCV 109.0 H (80.0-100.0) fL RDW 16.2 H (11.5-15.5) % Neutrophils # 9.3 H (1.3-7.7) k/uL Lymphocytes # 0.6 L (1.0-4.8) k/uL Macrocytosis Marked A PT (9.0-12.0) sec INR (<1.2) APTT (22.0-30.0) sec D-Dimer (<0.60) mg/L FEU ABG pH (7.35-7.45) ABG pO2 (83-108) mmHg ABG HCO3 (21-25) mmol/L ABG Total CO2 (19-24) mmol/L ABG O2 Saturation (94-97) % Sodium 136 L (137-145) mmol/L Potassium 3.3 L (3.5-5.1) mmol/L Creatinine 0.65 L (0.66-1.25) mg/dL Glucose 71 L (74-99) mg/dL POC Glucose (mg/dL) 120 H (75-99) mg/dL Calcium 6.5 L (8.4-10.2) mg/dL Total Protein 4.3 L (6.3-8.2) g/dL Albumin 1.8 L (3.5-5.0) g/dL Urine Protein (Negative) Urine Ketones (Negative) Urine Blood (Negative) Ur Leukocyte Esterase (Negative) Urine RBC (0-5) /hpf Urine WBC (0-5) /hpf Urine WBC Clumps (None) /hpf Urine Bacteria (None) /hpf Microbiology - Last 24 Hours (Table) 09/07/18 20:00 Urine Culture - Preliminary Urine,Catheterized Assessment and Plan Assessment: Fall Acute hypoxic respiratory failure COPD, rule out aspiration pneumonia Alcohol withdrawal Acute urinary tract infection Dehydration and hypovolemia. Hypokalemia Alcohol abuse Nicotine dependence Anemia calories-protein malnutrition Plan: This is a pleasant 73 years old male who presents because of alcohol withdrawal and fall found to have COPD exacerbation/pneumonia, UTI. Pulmonary/critical care team input is appreciated. Continue with antibiotics and IV fluids., . Continue with CIWA protocol. Continue with vitamins. Continue with gentle hydration. Replace electrolytes and monitors them. follow-up culture results Labs and medication were reviewed.. Continue same treatment. Continue with symptomatic treatment. Resume home medication. Monitor lytes and vitals. DVT and GI prophylaxis. Further recommendations of the clinical course of the patient DVT prophylaxis: Subcutaneous heparin GI Prophylaxis: Pepcid PT/OT: Pending Prognosis is guarded
[2018-09-08] MEDS: THIAMINE 100 MG TAB PO SCH ×4 (08:14→18:24)
[2018-09-08] MEDS: methylPREDNISolone SOD SUCCI 40 MG/ML 1 ML VIAL IV SCH ×2 (08:17→15:55)
--- NOTE | 2018-09-08 08:50 | XR ---
EXAMINATION TYPE: XR chest 1V portable DATE OF EXAM: 09/08/2018 COMPARISON: 09/07/2018 HISTORY: Shortness of breath TECHNIQUE: Single frontal view of the chest is obtained. FINDINGS: There is new opacification of the right lung base with slight mediastinal shift to the rig ht atelectasis. Additionally there is a gradient effect relating to a pleural effusion. Trace left pl eural effusion and left basilar airspace disease has also developed in the interim. Is within normal limits of size. Diffuse osseous demineralization is noted. Underlying COPD is seen. Cardiomediastinal silhouette IMPRESSION: 1. New opacification of the right lung base. Given the short-term interval development and secondary sign of volume loss with atelectasis and rightward mediastinal shift endobronchial mucous plugging s hould be considered 2. Small bilateral pleural effusions and left basilar airspace disease have also developed in the int erim that could relate to pneumonia.
[2018-09-08] MEDS: HEPARIN SODIUM,PORCINE 5,000 UNIT/ML 1 ML VIAL SQ SCH ×2 (09:24→21:13)
[2018-09-08] MEDS ORDERED: FUROSEMIDE 10 MG/ML 4 ML VIAL IV STA ×2 (09:40)
[2018-09-08] MEDS: MULTIVITAMINS, THERA 1 EACH TAB PO SCH ×2 (10:06→11:16)
[2018-09-08] MEDS: FAMOTIDINE 20 MG TAB PO SCH ×3 (10:06→22:18)
--- NOTE | 2018-09-08 11:32 | CDI ---
Documentation Clarification Form Date: 09/08/2018 11:02:40 AM From: She Cates RN, CCDS Admit Date: 09/07/2018 12:12:00 AM Patient Name: Cayetano Rosas Visit Number: [id number] Discharge Date: ATTENTION: The Clinical Documentation Specialists (CDI) and [facility] Coding Staff appreciate your assistance in clarifying documentation. Please respond to the clarification below the line at the bottom and electronically sign. The CDI & [facility] Coding staff will review the response and follow-up if needed. Please note: Queries are made part of the Legal Health Record. If you have any questions, please contact the author of this message via ITS. Dr. Chris Martin Calories-protein Malnutrition has been documented in your H/P and ongoing progress notes. History/Risk Factors: Anemia, Alcohol abuse, current Smoker, Malnutrition Clinical Indicators: 73-year-old male present after fall, with reports of alcohol abuse daily Labs: Albumin 2.0, Total Protein 4.7 Current BMI: 20.0 Insufficient energy intake: Yes: Generalized weakness Treatment: Dietary Consult: Yes, Underweight, Supplements: Heart Healthy diet Monitor PO In your professional opinion, can you please clarify if these findings signify one of the following conditions? Mild Protein-Calorie Malnutrition Moderate Protein-Calorie Malnutrition Severe Protein-Calorie Malnutrition Other condition, please specify Unable to determine (Last Revision: July 2017) Mild Protein-Calorie Malnutrition MTDD
[2018-09-08 12:20] LABS: Glucose,Whole Blood 89 mg/dL (75-99)
[2018-09-08] MEDS: LORazepam 2 MG/ML INJ IV PRN ×2 (14:37→22:15)
[2018-09-08] MEDS: INSULIN ASPART (NovoLOG) 100 UNIT/ML VIAL SQ SCH ×2 (14:45→17:45)
--- NOTE | 2018-09-08 16:35 | P.PN ---
Subjective Progress Note Date: 09/08/18 This is a 73-year-old white male patient with history of chronic alcoholism, ch ronic smoker, chronic anemia, previous pneumonia, malnutrition related to history of alcoholism, was in to the hospital on 09/06/2018 for evaluation of falls at home. Patient was brought in by an ambulance, and reportedly he tripped while walking and fell backwards hitting back of his head on the fridge. There was no loss of consciousness at the time of the incident, and patient's daughter called the ambulance with the patient for evaluation. The patient was drinking prior to the incident. He denies any headaches, lightheadedness, dizziness, denied any vision changes, no nausea vomiting or diarrhea. Not on any blood thinners. CT of the head and cervical spine was completed and showed moderate cerebral atrophy, no acute intracranial abnormality and mild spondylosis at C6 and 7 no acute fractures were seen. He was kept overnight in the emergency department, he was started on CIWA protocol for acute alcohol withdrawal syndrome. Lab work was completed in the emergency department and showed a white blood cell count of 6.1, hemoglobin of 9.4, sodium was 134, potassium is 2.5 and this was replaced per protocol, chloride was 94, CO2 is 31, BUN was 13 creatinine was 0.87, AST is 31, ALT was 20, alkaline phosphatase was 147, proBNP was 525. Patient was noted to have decreased oxygenation, decreased sats, after Ativan was given proceed with protocol. His decreased air movement auscultated on the left side, he was placed on 100% nonrebreather and his pulse ox is 88-89%, chest x-ray was obtained, showing stable left-sided consolidation and pleural effusion, hemodynamically related to aspiration pneumonia and asymmetric pulmonary edema. She was started on breathing treatments, antibiotics in the form of Zosyn, and is admitted to the intensive care unit for closer monitoring. She was given IV hydration in the emergency department with a liter bolus, and maintenance IV is 0.9 normal saline at a rate of 50 ML per hour. During my evaluation patient is quite lethargic, but opens eyes to verbal stimuli, and he is quite confused, he is only oriented to person, and he thinks he is in [place], he remains on 100% nonrebreather his current pulse ox is 90-92%, hemodynamically stable, blood pressure is 112/86, afebrile. on today's evaluation of 09/08/2018, the patient was seen quite awake and alert this morning. There has been improvement in the mental status since yesterday. Overnight, the patient was brought into the intensive care because of an aspiration. Significant diminished breath sounds in the left lung base along with some volume loss in the chest x-ray. He was placed on on the percent nonrebreather facemask. He was given aggressive chest PT. He was kept nothing by mouth. Overnight he improved and earlier this morning he was weaned down to 6 L about 2 by nasal cannula and he was able to maintain a saturation above 90%. His breathing was not labored. He had a congested cough. Unable to bring up much sputum. The cough strength has improved compared to yesterday. He has no signs of any agitation. In fact neurologically seemed to do much more alert and awake and following commands and responding to questions. Later on by early aft ran, the patient became more confused and restless. At that point we implemented this CIWA protocol and the patient was given Ativan which controlled his been eating. The patient is currently on antibiotics. The patient on IV Zosyn. The chest x-ray from today shows showed volume loss in the right lung base along with development of bilateral pleural effusion. Based on all this, I kept on the IV fluids to KVO. I gave the patient dose of Lasix 40 mg IV push and following that the patient producing adequate amount of urine output in the order of 750 mL. He remains in oxygen by nasal cannula at 6 L. Significant leukocytosis. Hemoglobin stable at 8.7. Function is stable. No other si gnificant events otherwise for now. The main concern for now is his concern for pneumonia, respiratory failure and early a.m. His cough and mechanism has improved although it remains quite weak and somewhat ineffective and performing adequate pulmonary toileting. Objective - Vital Signs Vital signs: Vital Signs Temp 98.1 F 09/08/18 16:00 Pulse 52 L 09/08/18 16:00 Resp 18 09/08/18 16:00 BP 118/59 09/08/18 16:00 Pulse Ox 95 09/08/18 16:00 Intake & Output 09/07/18 09/08/18 09/08/18 18:59 06:59 18:59 Intake Total 1001 3600 865 Output Total 60 345 1110 Balance 941 3255 -436 Weight 65.771 kg 65 kg Intake: IV 1001 2600 615 Piperacillin-Tazobactam 3 101 100 100 .375 gm In Sodium Chloride 0.9% 100 ml @ 25 mls/hr IVPB Q8HR [facility] Rx# :[id number] Potassium Chloride 10 meq 200 In Water For Injection 1 100ml.bag @ 100 mls/hr IVPB Q1HR [facility] Rx#: [id number] Sodium Chloride 0.9% 1, 1500 515 000 ml @ 20 mls/hr IV . Q24H [facility] Rx#:[id number] Sodium Chloride 0.9% 1, 700 000 ml @ 50 mls/hr IV . Q20H [facility] Rx#:[id number] Sodium Chloride 0.9% 1, 1000 000 ml @ 999 mls/hr IV . Q1H1M [facility] Rx#:[id number] Intake, IV Titration 1000 100 Amount Potassium Chloride 20 meq 100 In Water For Injection 1 100ml.bag @ 50 mls/hr IVPB Q2H [facility] Rx#: [id number] Sodium Chloride 0.9% 1, 1000 000 ml @ 999 mls/hr IV . Q1H1M [facility] Rx#:[id number] Oral 150 Output: Urine 60 345 1110 Other: Voiding Method Urinal Indwelling Catheter Indwelling Catheter # Voids 1 - Exam GENERAL EXAM: Lethargic l less short of breath compared to yesterday. Currently on 6 L of oxygen nasal cannula. Arousable. HEAD: Normocephalic/atraumatic. EYES: Normal reaction of pupils, equal size. Conjunctiva pink, sclera white. NOSE: Clear with pink turbinates. THROAT: No erythema or exudates. NECK: No masses, no JVD, no thyroid enlargement, no adenopathy. CHEST: No chest wall deformity. Symmetrical expansion. LUNGS: Equal air entry with decreased aeration on the left side, and a few scattered rhonchi's on the right, breath sounds continued to be diminished bilaterally more so on the left CVS: Regular rate and rhythm, normal S1 and S2, no gallops, no murmurs, no rubs ABDOMEN: Soft, nontender. No hepatosplenomegaly, normal bowel sounds, no guarding or rigidity. EXTREMITIES: No clubbing, redness, and chronic lower extremity edema, 2+ pitting edema no cyanosis, 2+ pulses and upper and lower extremities. MUSCULOSKELETAL: Muscle strength and tone normal. SPINE: No scoliosis or deformity SKIN: No rashes CENTRAL NERVOUS SYSTEM: Lethargic, but arousable to verbal stimuli, confused, oriented to person only. No focal deficits, tone is normal in all 4 extremities. Despite his increased alertness, the patient continues to be delirious. He is having some occasional visual hallucinations. - Labs CBC & Chem 7: 09/08/18 04:36 09/08/18 14:15 Labs: Abnormal Lab Results - Last 24 Hours (Table) 09/07/18 09/07/18 09/07/18 Range/Units 16:33 18:00 22:35 RBC (4.30-5.90) m/uL Hgb (13.0-17.5) gm/dL Hct (39.0-53.0) % MCV (80.0-100.0) fL RDW (11.5-15.5) % Neutrophils # (1.3-7.7) k/uL Lymphocytes # (1.0-4.8) k/uL Macrocytosis PT (9.0-12.0) sec INR (<1.2) APTT (22.0-30.0) sec D-Dimer 1.90 H (<0.60) mg/L FEU ABG pH 7.50 H (7.35-7.45) ABG pO2 69 L (83-108) mmHg ABG HCO3 31 H (21-25) mmol/L ABG Total CO2 32 H (19-24) mmol/L ABG O2 Saturation 92.4 L (94-97) % Sodium (137-145) mmol/L Potassium (3.5-5.1) mmol/L Creatinine (0.66-1.25) mg/dL Glucose (74-99) mg/dL POC Glucose (mg/dL) (75-99) mg/dL Calcium (8.4-10.2) mg/dL Total Protein (6.3-8.2) g/dL Albumin (3.5-5.0) g/dL Urine Protein 2+ H (Negative) Urine Ketones Trace H (Negative) Urine Blood Moderate H (Negative) Ur Leukocyte Esterase Large H (Negative) Urine RBC 68 H (0-5) /hpf Urine WBC >182 H (0-5) /hpf Urine WBC Clumps Many H (None) /hpf Urine Bacteria Many H (None) /hpf 09/07/18 09/07/18 09/07/18 Range/Units 23:55 23:55 23:55 RBC 2.60 L (4.30-5.90) m/uL Hgb 9.1 L (13.0-17.5) gm/dL Hct 28.2 L (39.0-53.0) % MCV 108.6 H (80.0-100.0) fL RDW 16.0 H (11.5-15.5) % Neutrophils # (1.3-7.7) k/uL Lymphocytes # (1.0-4.8) k/uL Macrocytosis Marked A PT 14.5 H (9.0-12.0) sec INR 1.4 H (<1.2) APTT 48.2 H (22.0-30.0) sec D-Dimer (<0.60) mg/L FEU ABG pH (7.35-7.45) ABG pO2 (83-108) mmHg ABG HCO3 (21-25) mmol/L ABG Total CO2 (19-24) mmol/L ABG O2 Saturation (94-97) % Sodium 135 L (137-145) mmol/L Potassium (3.5-5.1) mmol/L Creatinine (0.66-1.25) mg/dL Glucose (74-99) mg/dL POC Glucose (mg/dL) (75-99) mg/dL Calcium 6.8 L (8.4-10.2) mg/dL Total Protein 4.7 L (6.3-8.2) g/dL Albumin 2.0 L (3.5-5.0) g/dL Urine Protein (Negative) Urine Ketones (Negative) Urine Blood (Negative) Ur Leukocyte Esterase (Negative) Urine RBC (0-5) /hpf Urine WBC (0-5) /hpf Urine WBC Clumps (None) /hpf Urine Bacteria (None) /hpf 09/08/18 09/08/18 09/08/18 Range/Units 04:36 04:36 05:50 RBC 2.53 L (4.30-5.90) m/uL Hgb 8.7 L (13.0-17.5) gm/dL Hct 27.5 L (39.0-53.0) % MCV 109.0 H (80.0-100.0) fL RDW 16.2 H (11.5-15.5) % Neutrophils # 9.3 H (1.3-7.7) k/uL Lymphocytes # 0.6 L (1.0-4.8) k/uL Macrocytosis Marked A PT (9.0-12.0) sec INR (<1.2) APTT (22.0-30.0) sec D-Dimer (<0.60) mg/L FEU ABG pH (7.35-7.45) ABG pO2 (83-108) mmHg ABG HCO3 (21-25) mmol/L ABG Total CO2 (19-24) mmol/L ABG O2 Saturation (94-97) % Sodium 136 L (137-145) mmol/L Potassium 3.3 L (3.5-5.1) mmol/L Creatinine 0.65 L (0.66-1.25) mg/dL Glucose 71 L (74-99) mg/dL POC Glucose (mg/dL) 120 H (75-99) mg/dL Calcium 6.5 L (8.4-10.2) mg/dL Total Protein 4.3 L (6.3-8.2) g/dL Albumin 1.8 L (3.5-5.0) g/dL Urine Protein (Negative) Urine Ketones (Negative) Urine Blood (Negative) Ur Leukocyte Esterase (Negative) Urine RBC (0-5) /hpf Urine WBC (0-5) /hpf Urine WBC Clumps (None) /hpf Urine Bacteria (None) /hpf Microbiology - Last 24 Hours (Table) 09/07/18 20:00 Urine Culture - Preliminary Urine,Catheterized Assessment and Plan Plan: #1. Acute hypoxemic respiratory failure related to suspected aspiration pneumonia, and mucus plugging in the left lung, chest x-ray showed left-sided consolidation and pleural effusion and the possibility of asymmetric pulmonary edema. The patient came into the intensive care unit. Initially was in the 100% nonrebreather facemask. He improved with aggressive pulmonary toileting. His current deficits of oxygen by nasal cannula. Nevertheless, chest x-ray from today shows volume loss in the right lung base probably related to mucous plug. There is also development of bilateral pleural effusions. He remains on IV Zosyn. #2. Acute delirium, related to acute alcohol withdrawal syndrome, currently on the CIWA protocol and the patient is requiring Ativan #3. Alcohol intoxication, falls at home, patient fell and hit his head while walking and tripping. CT head and cervical spine did not reveal any acute intracranial process or acute cervical fractures #4. Electrolyte abnormalities including mild hyponatremia, severe hypokalemia, hypochloremia, and increased CO2, hemodynamically related to patient's chronic alcoholism, poor nutrition, and dehydration #5. Chronic anemia #6. Chronic cigarette smoker #7. Chronic alcoholism with underlying malnutrition #8. Previous episode of pneumonia involving the left lower lobe in 2016 #9. Generalized weakness and debility and malnourishment Plan I'm sending very much concerned this patient's progression. He continues to be on and the radius. He is requiring CIWA protocol and Ativan to control his delirium. Meanwhile, he had developed aspiration pneumonia and volume loss and probably some mucous plugging. Ideally, bronchoscopy may be needed to do adequate pulmonary toileting and removal of the mucous plugs. Nevertheless, he was quite hypoxic and we opted to proceed with conservative measures of chest PT and pulmonary toileting and he improved. He is on antibiotics for now. Is on bronchodilators for now. Continue same antibiotic coverage. The IV Fluids to KVO. Give Him IV Lasix. Repeat Chest X-Ray in the Morning. May Consider Bro nchoscopy for pulmonary toileting if his Condition Shows No Improvement. We'll Continue to Follow. Electrodes Are All Been Replaced Including Low Potassium and Magnesium.
[2018-09-08] MEDS: IPRATROPIUM-ALBUTEROL 3 ML NEB INHALATION PRN ×2 (17:15→21:28)
[2018-09-08 17:53] LABS: Glucose,Whole Blood 160 mg/dL (75-99)
[2018-09-09 00:13] LABS: Glucose,Whole Blood 171 mg/dL (75-99)
[2018-09-09] MEDS: INSULIN ASPART (NovoLOG) 100 UNIT/ML VIAL SQ SCH ×5 (00:21→20:40)
[2018-09-09] MEDS: methylPREDNISolone SOD SUCCI 40 MG/ML 1 ML VIAL IV SCH ×4 (00:22→23:32)
[2018-09-09] MEDS: PIPERACILLIN-TAZOBACTAM 3.375 GM in SODIUM CHLORIDE 0.9% 100 ML IVPB SCH ×4 (00:22→23:32)
[2018-09-09 04:40] LABS: Anisocytosis Slight; Basophils % (A) 0 %; Eosinophils % (A) 0 %; HCT 25.8 % (39.0-53.0); HGB 8.1 gm/dL (13.0-17.5); Hypochromasia Slight; Lymphocytes # (A) 0.5 k/uL (1.0-4.8); Lymphocytes % (A) 5 %; MCH 34.2 pg (25.0-35.0); MCHC 31.4 g/dL (31.0-37.0); MCV 108.7 fL (80.0-100.0); Mean Platelet Volume 7.4; Monocytes # (A) 0.2 k/uL (0-1.0); Monocytes % (A) 2 %; Neutrophils # (A) 8.5 k/uL (1.3-7.7); Neutrophils % (A) 92 %; Platelet Count 399 k/uL (150-450); RBC 2.37 m/uL (4.30-5.90); RDW 16.2 % (11.5-15.5); WBC 9.2 k/uL (3.8-10.6)
[2018-09-09 04:41] LABS: Macrocytosis Marked
[2018-09-09 04:57] LABS: African American GFR (CKD) >90 (>60 ml/min/1.73 sqM); Anion Gap 3 mmol/L; Blood Urea Nitrogen 17 mg/dL (9-20); Calcium 7.2 mg/dL (8.4-10.2); Carbon Dioxide 26 mmol/L (22-30); Chloride 107 mmol/L (98-107); Glucose 134 mg/dL (74-99); Magnesium 2.1 mg/dL (1.6-2.3); Potassium 3.8 mmol/L (3.5-5.1); Sodium 136 mmol/L (137-145)
[2018-09-09] MEDS ORDERED: Potassium Replacement Protocol 1 EACH MISC MISCELLANE PRN (05:11)
[2018-09-09 05:48] LABS: Glucose,Whole Blood 149 mg/dL (75-99)
[2018-09-09] MEDS: POTASSIUM CHLORIDE 10 MEQ in WATER FOR INJECTION 1 100ML.BAG IVPB SCH ×2 (05:54→07:16)
[2018-09-09] MEDS: THIAMINE 100 MG TAB PO SCH ×2 (06:40→17:56)
[2018-09-09] MEDS: IPRATROPIUM-ALBUTEROL 3 ML NEB INHALATION PRN ×4 (07:26→19:36)
--- NOTE | 2018-09-09 07:52 | XR ---
EXAMINATION TYPE: XR chest 1V DATE OF EXAM: 09/09/2018 COMPARISON: 09/08/2018 INDICATION: Shortness of breath TECHNIQUE: Single frontal view of the chest is obtained. FINDINGS: The heart size is normal. The pulmonary vasculature is normal. Bibasilar infiltrates are present. There appears to be chronic elevation of the diaphragm. Subpulmoni c effusion on the right is not excluded. Minimal left pleural effusion may be present. IMPRESSION: 1. Bibasilar infiltrates. 2. Small pleural effusions suspected
[2018-09-09] MEDS: FAMOTIDINE 20 MG TAB PO SCH ×2 (09:09→20:39)
[2018-09-09] MEDS: HEPARIN SODIUM,PORCINE 5,000 UNIT/ML 1 ML VIAL SQ SCH ×2 (09:09→20:39)
[2018-09-09] MEDS: MULTIVITAMINS, THERA 1 EACH TAB PO SCH (09:09)
--- NOTE | 2018-09-09 11:51 | P.PN ---
Subjective This is a pleasant 73 years old male with past medical history of anemia, alcohol abuse, cigarette smoker, malnutrition. Patient states that he came to the hospital because he fell on 1919 2 PM, when he felt backwards and he hit his head. After that he was lying on the floor without losing consciousness, no dizziness or syncope prior or after the fall. He thinks that his room made Kiran or his daughter called EMS for him. Patient denies headache. No chest pain or dyspnea. He states that he has chronic cough with phlegm. No chest pain or abdominal pain. No nausea vomiting. No change in urine or bowel habits. No fever. He's not sure about his walking and how was he do one prior to fall. Patient is afebrile, blood pressure 102/73, heart rate 68, respiratory rate 21, is saturating 88% on room air. His CBC showed normal WBC, hemoglobin 9.4. Platelet 439. Electrolytes showing sodium 134, potassium 2.5, went up to 4.9. Creatinine 0.8. Glucose 115. Liver enzymes elevated rate low albumin at 2.5. TSH 3.1. CAT scan of the head showing cerebral atrophy, CT of the cervical spine showing no fracture as per radiologist. Patient has already been started on CIWA protocol. Patient admitted to the intensive care unit upon admission 09/08/2018 Patient remains in the ICU for alcohol withdrawal on CIWA protocol., Yesterday evening patient got hypoxic while he is getting the Ativan. Chest x-ray was obtained which was suspicious for COPD/pneumonia. There was concern for aspiration pneumonia. Pulmonary team was been called to evaluate the patient. Right femoral line was placed, Benedict catheter with turbid urine was placed. Urinalysis was suspicious for infection. Patient was started on Zosyn. Urine culture is pending. Currently patient is saturating 97% on 6 L oxygen nasal cannula. Blood pressure is 97/54, his currently on normal saline and 1 25 mL/h. Has expiratory wheezing, Steroids is added. labs showing WBC of 10.4 K, hemoglobin 8.7. Potassium 3.3 and magnesium 2.0. Liver enzymes not elevated. 09/09/2018 Patient still generally weak although a slightly improving. He remains on CIWA protocol. He is breathing quietly however is saturating 97% on 4 L oxygen via nasal cannula. Afebrile. With no leukocytosis. Repeat chest x-ray: Bibasilar infiltrates with a small effusion. Patient remains on Zosyn for possible aspiration pneumonia and urinary tract infection. However urine culture is negative. He got Lasix yesterday. Patient on steroids for possible COPD competent. CONSTITUTIONAL: No fever HEENT: No recent visual problems or hearing problems. Denied any sore throat. CARDIOVASCULAR:no palpitations, no syncope. PULMONARY: no hemoptysis. GASTROINTESTINAL: No diarrhea, no nausea, no vomiting, no abdominal pain. Normoactive bowel sounds. NEUROLOGICAL: No headaches, no weakness, no numbness. HEMATOLOGICAL: Denies any bleeding or petechiae. GENITOURINARY: Denies any burning micturition, frequency, or urgency. MUSCULOSKELETAL/RHEUMATOLOGICAL: Denies any joint pain, swelling, or any muscle pain. ENDOCRINE: Denies any polyuria or polydipsia. Medication: Motrin, Ativan, Solu-Medrol, potassium chloride, multivitamin, Zofran, Zosyn, thiamine. Normal saline drip Objective - Vital Signs Vital signs: Vital Signs Temp 98.0 F 09/09/18 08:00 Pulse 48 L 09/09/18 11:38 Resp 14 09/09/18 11:38 BP 89/48 09/09/18 10:00 Pulse Ox 97 09/09/18 10:00 Intake & Output 09/08/18 09/09/18 09/09/18 18:59 06:59 18:59 Intake Total 905 360 110 Output Total 1190 325 60 Balance -285 35 50 Weight 65.2 kg Intake: IV 655 360 110 Piperacillin-Tazobactam 3 100 50 .375 gm In Sodium Chloride 0.9% 100 ml @ 25 mls/hr IVPB Q8HR [facility] Rx# :[id number] Potassium Chloride 10 meq 100 In Water For Injection 1 100ml.bag @ 100 mls/hr IVPB Q1H [facility] Rx#: [id number] Sodium Chloride 0.9% 1, 555 260 60 000 ml @ 20 mls/hr IV . Q24H [facility] Rx#:[id number] Intake, IV Titration 100 Amount Potassium Chloride 20 meq 100 In Water For Injection 1 100ml.bag @ 50 mls/hr IVPB Q2H [facility] Rx#: [id number] Oral 150 0 Output: Urine 1190 325 60 Other: Voiding Method Indwelling Catheter Indwelling Catheter - Exam -GENERAL: The patient is alert and oriented x3, not in any acute distress. He is weak and lethargic. he is malnourished. HEENT: Pupils are round and equally reacting to light. EOMI. No scleral icterus. No conjunctival pallor. Normocephalic, atraumatic. No pharyngeal erythema. No thyromegaly. CARDIOVASCULAR: S1 and S2 present. No murmurs, rubs, or gallops. PULMONARY: Chest is clear to auscultation, no wheezing or crackles. -ABDOMEN: Soft, nontender, nondistended, normoactive bowel sounds. No palpable organomegaly. Has Benedict catheter in a Place. He has right femoral central line MUSCULOSKELETAL: No joint swelling or deformity. EXTREMITIES: No cyanosis, clubbing, or pedal edema. NEUROLOGICAL: Gross neurological examination did not reveal any focal deficits. SKIN: No rashes. - Labs CBC & Chem 7: 09/09/18 04:30 09/09/18 04:30 Labs: Abnormal Lab Results - Last 24 Hours (Table) 09/08/18 09/09/18 09/09/18 Range/Units 17:42 00:12 04:30 RBC (4.30-5.90) m/uL Hgb (13.0-17.5) gm/dL Hct (39.0-53.0) % MCV (80.0-100.0) fL RDW (11.5-15.5) % Neutrophils # (1.3-7.7) k/uL Lymphocytes # (1.0-4.8) k/uL Macrocytosis Sodium 136 L (137-145) mmol/L Glucose 134 H (74-99) mg/dL POC Glucose (mg/dL) 160 H 171 H (75-99) mg/dL Calcium 7.2 L (8.4-10.2) mg/dL 09/09/18 09/09/18 Range/Units 04:30 05:47 RBC 2.37 L (4.30-5.90) m/uL Hgb 8.1 L (13.0-17.5) gm/dL Hct 25.8 L (39.0-53.0) % MCV 108.7 H (80.0-100.0) fL RDW 16.2 H (11.5-15.5) % Neutrophils # 8.5 H (1.3-7.7) k/uL Lymphocytes # 0.5 L (1.0-4.8) k/uL Macrocytosis Marked A Sodium (137-145) mmol/L Glucose (74-99) mg/dL POC Glucose (mg/dL) 149 H (75-99) mg/dL Calcium (8.4-10.2) mg/dL Microbiology - Last 24 Hours (Table) 09/07/18 20:00 Urine Culture - Final Urine,Catheterized Assessment and Plan Assessment: Fall Alcohol withdrawal, with delirium tremens Acute hypoxic respiratory failure Possible aspiration pneumonia Acute COPD exacerbation COPD Unlikely urinary tract infection Dehydration and hypovolemia. Hypokalemia Alcohol abuse Nicotine dependence Anemia calories-protein malnutrition Plan: This is a pleasant 73 years old male who presents because of alcohol withdrawal and fall found to have COPD exacerbation/pneumonia, UTI. Pulmonary/critical care team input is appreciated. Continue with antibiotics and IV fluids., . Continue with CIWA protocol. Continue with vitamins. Continue with gentle hydration. Replace electrolytes and monitors them. follow-up culture results Labs and medication were reviewed.. Continue same treatment. Continue with symptomatic treatment. Resume home medication. Monitor lytes and vitals. DVT and GI prophylaxis. Further recommendations of the clinical course of the patient DVT prophylaxis: Subcutaneous heparin GI Prophylaxis: Pepcid PT/OT: Pending Prognosis is guarded
[2018-09-09 13:11] LABS: Glucose,Whole Blood 174 mg/dL (75-99)
[2018-09-09] MEDS: SODIUM CHLORIDE 0.9% 1,000 ML IV SCH (13:42)
[2018-09-09 17:20] LABS: Glucose,Whole Blood 147 mg/dL (75-99)
--- NOTE | 2018-09-09 18:31 | P.PN ---
Subjective Progress Note Date: 09/09/18 This is a 73-year-old white male patient with history of chronic alcoholism, ch ronic smoker, chronic anemia, previous pneumonia, malnutrition related to history of alcoholism, was in to the hospital on 09/06/2018 for evaluation of falls at home. Patient was brought in by an ambulance, and reportedly he tripped while walking and fell backwards hitting back of his head on the fridge. There was no loss of consciousness at the time of the incident, and patient's daughter called the ambulance with the patient for evaluation. The patient was drinking prior to the incident. He denies any headaches, lightheadedness, dizziness, denied any vision changes, no nausea vomiting or diarrhea. Not on any blood thinners. CT of the head and cervical spine was completed and showed moderate cerebral atrophy, no acute intracranial abnormality and mild spondylosis at C6 and 7 no acute fractures were seen. He was kept overnight in the emergency department, he was started on CIWA protocol for acute alcohol withdrawal syndrome. Lab work was completed in the emergency department and showed a white blood cell count of 6.1, hemoglobin of 9.4, sodium was 134, potassium is 2.5 and this was replaced per protocol, chloride was 94, CO2 is 31, BUN was 13 creatinine was 0.87, AST is 31, ALT was 20, alkaline phosphatase was 147, proBNP was 525. Patient was noted to have decreased oxygenation, decreased sats, after Ativan was given proceed with protocol. His decreased air movement auscultated on the left side, he was placed on 100% nonrebreather and his pulse ox is 88-89%, chest x-ray was obtained, showing stable left-sided consolidation and pleural effusion, hemodynamically related to aspiration pneumonia and asymmetric pulmonary edema. She was started on breathing treatments, antibiotics in the form of Zosyn, and is admitted to the intensive care unit for closer monitoring. She was given IV hydration in the emergency department with a liter bolus, and maintenance IV is 0.9 normal saline at a rate of 50 ML per hour. During my evaluation patient is quite lethargic, but opens eyes to verbal stimuli, and he is quite confused, he is only oriented to person, and he thinks he is in [place], he remains on 100% nonrebreather his current pulse ox is 90-92%, hemodynamically stable, blood pressure is 112/86, afebrile. on today's evaluation of 09/08/2018, the patient was seen quite awake and alert this morning. There has been improvement in the mental status since yesterday. Overnight, the patient was brought into the intensive care because of an aspiration. Significant diminished breath sounds in the left lung base along with some volume loss in the chest x-ray. He was placed on on the percent nonrebreather facemask. He was given aggressive chest PT. He was kept nothing by mouth. Overnight he improved and earlier this morning he was weaned down to 6 L about 2 by nasal cannula and he was able to maintain a saturation above 90%. His breathing was not labored. He had a congested cough. Unable to bring up much sputum. The cough strength has improved compared to yesterday. He has no signs of any agitation. In fact neurologically seemed to do much more alert and awake and following commands and responding to questions. Later on by early aft ran, the patient became more confused and restless. At that point we implemented this CIWA protocol and the patient was given Ativan which controlled his been eating. The patient is currently on antibiotics. The patient on IV Zosyn. The chest x-ray from today shows showed volume loss in the right lung base along with development of bilateral pleural effusion. Based on all this, I kept on the IV fluids to KVO. I gave the patient dose of Lasix 40 mg IV push and following that the patient producing adequate amount of urine output in the order of 750 mL. He remains in oxygen by nasal cannula at 6 L. Significant leukocytosis. Hemoglobin stable at 8.7. Function is stable. No other si gnificant events otherwise for now. The main concern for now is his concern for pneumonia, respiratory failure and early a.m. His cough and mechanism has improved although it remains quite weak and somewhat ineffective and performing adequate pulmonary toileting. On 09/09/2018, the patient remains quite lethargic yet arousable. Chest x-ray still showing bilateral basal infiltrate and small better pleural effusion. His cough and presented to bring up much of sputum and his cough is weak. He is receiving PT. He is on 40% oxygen nasal cannula and his pulse is now 94%. I think that there is some aspiration related mucous plugs which the patient is unable to cough out. Nevertheless, despite his x-ray findings, he still breathing comfortably on 4 L of oxygen nasal cannula. No chest pain. No hemoptysis. No pleurisy. No agitation. He is breathing is nonlabored. He is receiving IV Zosyn. He is on IV Solu Medrol 40 mg every 8 hours. He is on DuoNeb nebulized treatments around the clock. His ammonia level is less than 9. Objective - Vital Signs Vital signs: Vital Signs Temp 98.0 F 09/09/18 08:00 Pulse 49 L 09/09/18 15:43 Resp 18 09/09/18 15:27 BP 89/48 09/09/18 10:00 Pulse Ox 94 L 09/09/18 15:27 Intake & Output 09/08/18 09/09/18 09/09/18 18:59 06:59 18:59 Intake Total 905 360 245 Output Total 1190 325 120 Balance -285 35 125 Weight 65.2 kg Intake: IV 655 360 245 Piperacillin-Tazobactam 3 100 125 .375 gm In Sodium Chloride 0.9% 100 ml @ 25 mls/hr IVPB Q8HR [facility] Rx# :[id number] Potassium Chloride 10 meq 100 In Water For Injection 1 100ml.bag @ 100 mls/hr IVPB Q1H [facility] Rx#: [id number] Sodium Chloride 0.9% 1, 555 260 120 000 ml @ 20 mls/hr IV . Q24H [facility] Rx#:[id number] Intake, IV Titration 100 Amount Potassium Chloride 20 meq 100 In Water For Injection 1 100ml.bag @ 50 mls/hr IVPB Q2H [facility] Rx#: [id number] Oral 150 0 Output: Urine 1190 325 120 Other: Voiding Method Indwelling Catheter Indwelling Catheter - Exam GENERAL EXAM: Lethargic l less short of breath compared to yesterday. Currently on 4 L of oxygen nasal cannula. Arousable. HEAD: Normocephalic/atraumatic. EYES: Normal reaction of pupils, equal size. Conjunctiva pink, sclera white. NOSE: Clear with pink turbinates. THROAT: No erythema or exudates. NECK: No masses, no JVD, no thyroid enlargement, no adenopathy. CHEST: No chest wall deformity. Symmetrical expansion. LUNGS: Equal air entry with decreased aeration on the left side, and a few scattered rhonchi's on the right, breath sounds continued to be diminished bilaterally more so on the left CVS: Regular rate and rhythm, normal S1 and S2, no gallops, no murmurs, no rubs ABDOMEN: Soft, nontender. No hepatosplenomegaly, normal bowel sounds, no guarding or rigidity. EXTREMITIES: No clubbing, redness, and chronic lower extremity edema, 2+ pitting edema no cyanosis, 2+ pulses and upper and lower extremities. MUSCULOSKELETAL: Muscle strength and tone normal. SPINE: No scoliosis or deformity SKIN: No rashes CENTRAL NERVOUS SYSTEM: Lethargic, but arousable to verbal stimuli, confused, oriented to person only. No focal deficits, tone is normal in all 4 extremities. Despite his increased alertness, the patient continues to be delirious. He is having some occasional visual hallucinations. - Labs CBC & Chem 7: 09/09/18 04:30 09/09/18 04:30 Labs: Abnormal Lab Results - Last 24 Hours (Table) 09/09/18 09/09/18 09/09/18 Range/Units 00:12 04:30 04:30 RBC 2.37 L (4.30-5.90) m/uL Hgb 8.1 L (13.0-17.5) gm/dL Hct 25.8 L (39.0-53.0) % MCV 108.7 H (80.0-100.0) fL RDW 16.2 H (11.5-15.5) % Neutrophils # 8.5 H (1.3-7.7) k/uL Lymphocytes # 0.5 L (1.0-4.8) k/uL Macrocytosis Marked A Sodium 136 L (137-145) mmol/L Glucose 134 H (74-99) mg/dL POC Glucose (mg/dL) 171 H (75-99) mg/dL Calcium 7.2 L (8.4-10.2) mg/dL 09/09/18 09/09/18 09/09/18 Range/Units 05:47 12:59 17:10 RBC (4.30-5.90) m/uL Hgb (13.0-17.5) gm/dL Hct (39.0-53.0) % MCV (80.0-100.0) fL RDW (11.5-15.5) % Neutrophils # (1.3-7.7) k/uL Lymphocytes # (1.0-4.8) k/uL Macrocytosis Sodium (137-145) mmol/L Glucose (74-99) mg/dL POC Glucose (mg/dL) 149 H 174 H 147 H (75-99) mg/dL Calcium (8.4-10.2) mg/dL Microbiology - Last 24 Hours (Table) 09/07/18 20:00 Urine Culture - Final Urine,Catheterized Assessment and Plan Plan: #1. Acute hypoxemic respiratory failure related to suspected aspiration pneumonia, and mucus plugging in the left lung, chest x-ray showed left-sided consolidation and pleural effusion and the possibility of asymmetric pulmonary edema. The patient came into the intensive care unit. Initially was in the 100% nonrebreather facemask. He improved with aggressive pulmonary toileting. His current on 4 lilters of oxygen by nasal cannula. Nevertheless, chest x-ray from today shows volume loss in the right lung base probably related to mucous plug. There is also development of bilateral pleural effusions. He remains on IV Zosyn. I'm still contemplating the possibility of doing a bronchoscopy on this patient. I will bit worried about his mental status and his ability to have the constellation. We'll try to go with her conservative ways of chest PT and aggressive pulmonary toileting. His cardiac output as of oxygen nasal cannula and seems to be quite comfortable despite his ongoing pulmonary issues in the despite the chest x-ray findings. #2. Acute delirium, related to acute alcohol withdrawal syndrome, currently on the CIWA protocol and the patient is requiring Ativan . More comfortable compared to yesterday although quite lethargic. Ammonia level is less than 9. #3. Alcohol intoxication, falls at home, patient fell and hit his head while walking and tripping. CT head and cervical spine did not reveal any acute intracranial process or acute cervical fractures #4. Electrolyte abnormalities including mild hyponatremia, severe hypokalemia, hypochloremia, and increased CO2, hemodynamically related to patient's chronic alcoholism, poor nutrition, and dehydration #5. Chronic anemia #6. Chronic cigarette smoker #7. Chronic alcoholism with underlying malnutrition #8. Previous episode of pneumonia involving the left lower lobe in 2016 #9. Generalized weakness and debility and malnourishment #10 chronic lower extremity edema Plan Monitor the pulmonary status in the ICU. Consider bronchoscopy if no improvement within next week 4 hours. Monitor the mental status. Continue IV Zosyn. Watch for any signs of the tremor. Continue bronchodilators. Continue IV Solu Medrol. Thiamine and blood sugar control. Long-term prognosis poor baseline above-mentioned comorbidities. We'll continue to follow.
[2018-09-09 20:48] LABS: Glucose,Whole Blood 97 mg/dL (75-99)
[2018-09-10] MEDS: INSULIN ASPART (NovoLOG) 100 UNIT/ML VIAL SQ SCH ×5 (02:11→21:39)
[2018-09-10 02:17] LABS: Glucose,Whole Blood 150 mg/dL (75-99)
[2018-09-10 04:55] LABS: Basophils % (A) 0 %; Eosinophils % (A) 0 %; HCT 23.8 % (39.0-53.0); HGB 7.3 gm/dL (13.0-17.5); Hypochromasia Slight; Lymphocytes # (A) 0.4 k/uL (1.0-4.8); Lymphocytes % (A) 4 %; MCH 33.2 pg (25.0-35.0); MCHC 30.6 g/dL (31.0-37.0); MCV 108.4 fL (80.0-100.0); Macrocytosis Marked; Mean Platelet Volume 7.2; Monocytes # (A) 0.3 k/uL (0-1.0); Monocytes % (A) 3 %; Neutrophils # (A) 8.9 k/uL (1.3-7.7); Neutrophils % (A) 92 %; Platelet Count 415 k/uL (150-450); RBC 2.19 m/uL (4.30-5.90); WBC 9.6 k/uL (3.8-10.6)
[2018-09-10 05:08] LABS: Hypochromasia (M) Present; Polychromasia Present
[2018-09-10 05:12] LABS: African American GFR (CKD) >90 (>60 ml/min/1.73 sqM); Anion Gap 2 mmol/L; Blood Urea Nitrogen 20 mg/dL (9-20); Calcium 7.5 mg/dL (8.4-10.2); Carbon Dioxide 26 mmol/L (22-30); Chloride 105 mmol/L (98-107); Glucose 110 mg/dL (74-99); Magnesium 2.2 mg/dL (1.6-2.3); Potassium 3.9 mmol/L (3.5-5.1); Sodium 133 mmol/L (137-145)
[2018-09-10] MEDS ORDERED: Potassium Replacement Protocol 1 EACH MISC MISCELLANE PRN (05:26)
[2018-09-10] MEDS ORDERED: POTASSIUM CHLORIDE ER 20 MEQ TAB.ER PO SCH (06:00)
[2018-09-10 06:59] LABS: Glucose,Whole Blood 105 mg/dL (75-99)
[2018-09-10] MEDS: PIPERACILLIN-TAZOBACTAM 3.375 GM in SODIUM CHLORIDE 0.9% 100 ML IVPB SCH ×2 (07:56→16:53)
[2018-09-10] MEDS: HEPARIN SODIUM,PORCINE 5,000 UNIT/ML 1 ML VIAL SQ SCH ×2 (07:57→20:04)
[2018-09-10] MEDS: FAMOTIDINE 20 MG TAB PO SCH ×2 (07:57→20:04)
[2018-09-10] MEDS: THIAMINE 100 MG TAB PO SCH ×2 (07:57→16:54)
[2018-09-10] MEDS: MULTIVITAMINS, THERA 1 EACH TAB PO SCH (07:58)
[2018-09-10] MEDS: methylPREDNISolone SOD SUCCI 40 MG/ML 1 ML VIAL IV SCH ×2 (07:58→20:04)
--- NOTE | 2018-09-10 08:11 | XR ---
EXAMINATION TYPE: XR chest 1V DATE OF EXAM: 09/10/2018 HISTORY: Shortness of breath. COMPARISON: 09/09/2018 TECHNIQUE: Single view of the chest is submitted. FINDINGS: Demonstrated are scattered senescent parenchymal change. Coarse right perihilar and left basilar infiltrate persists. No significant change appreciated. The heart is stable. Hilar and mediastinal structures are within normal limits. Degenerative changes are seen of the dorsal spine. IMPRESSION: 1. Coarse right perihilar and left basilar infiltrate persists. No significant change appreciated.
[2018-09-10] MEDS: IPRATROPIUM-ALBUTEROL 3 ML NEB INHALATION PRN ×3 (08:55→20:41)
[2018-09-10 12:00] LABS: Glucose,Whole Blood 135 mg/dL (75-99)
--- NOTE | 2018-09-10 13:09 | P.PN ---
Subjective This is a pleasant 73 years old male with past medical history of anemia, alcohol abuse, cigarette smoker, malnutrition. Patient states that he came to the hospital because he fell on 1919 2 PM, when he felt backwards and he hit his head. After that he was lying on the floor without losing consciousness, no dizziness or syncope prior or after the fall. He thinks that his room made Kiran or his daughter called EMS for him. Patient denies headache. No chest pain or dyspnea. He states that he has chronic cough with phlegm. No chest pain or abdominal pain. No nausea vomiting. No change in urine or bowel habits. No fever. He's not sure about his walking and how was he do one prior to fall. Patient is afebrile, blood pressure 102/73, heart rate 68, respiratory rate 21, is saturating 88% on room air. His CBC showed normal WBC, hemoglobin 9.4. Platelet 439. Electrolytes showing sodium 134, potassium 2.5, went up to 4.9. Creatinine 0.8. Glucose 115. Liver enzymes elevated rate low albumin at 2.5. TSH 3.1. CAT scan of the head showing cerebral atrophy, CT of the cervical spine showing no fracture as per radiologist. Patient has already been started on CIWA protocol. Patient admitted to the intensive care unit upon admission 09/08/2018 Patient remains in the ICU for alcohol withdrawal on CIWA protocol., Yesterday evening patient got hypoxic while he is getting the Ativan. Chest x-ray was obtained which was suspicious for COPD/pneumonia. There was concern for aspiration pneumonia. Pulmonary team was been called to evaluate the patient. Right femoral line was placed, Benedict catheter with turbid urine was placed. Urinalysis was suspicious for infection. Patient was started on Zosyn. Urine culture is pending. Currently patient is saturating 97% on 6 L oxygen nasal cannula. Blood pressure is 97/54, his currently on normal saline and 1 25 mL/h. Has expiratory wheezing, Steroids is added. labs showing WBC of 10.4 K, hemoglobin 8.7. Potassium 3.3 and magnesium 2.0. Liver enzymes not elevated. 09/09/2018 Patient still generally weak although a slightly improving. He remains on CIWA protocol. He is breathing quietly however is saturating 97% on 4 L oxygen via nasal cannula. Afebrile. With no leukocytosis. Repeat chest x-ray: Bibasilar infiltrates with a small effusion. Patient remains on Zosyn for possible aspiration pneumonia and urinary tract infection. However urine culture is negative. He got Lasix yesterday. Patient on steroids for possible COPD competent. 09/10/2018 patient is seen today in the ICU. He is more awake and alert and less lethargic. The bed to chair. His breathing is better but still tachypneic. He is on 4 L oxygen today. He is afebrile. Labs from today are unremarkable including CBC and BMP. Sugar is controlled. Magnesium is 2.2. Chest x-ray: Persistent right perihilar and left basilar infiltrates. We are his steroids. He remains on antibiotics. Pulmonary input is appreciated and they are following the patient closely Objective - Vital Signs Vital signs: Vital Signs Temp 98.5 F 09/10/18 12:00 Pulse 67 09/10/18 12:00 Resp 18 09/10/18 12:00 BP 111/76 09/10/18 12:00 Pulse Ox 95 09/10/18 12:00 Intake & Output 09/09/18 09/10/18 09/10/18 18:59 06:59 18:59 Intake Total 420 265 820 Output Total 252 320 220 Balance 168 -55 600 Weight 68.7 kg 68.7 kg Intake: IV 420 265 220 Piperacillin-Tazobactam 3 200 25 100 .375 gm In Sodium Chloride 0.9% 100 ml @ 25 mls/hr IVPB Q8HR [facility] Rx# :[id number] Sodium Chloride 0.9% 1, 220 240 120 000 ml @ 20 mls/hr IV . Q24H S[facility]Y Rx#:[id number] Oral 600 Output: Urine 252 320 220 Other: Voiding Method Indwelling Catheter Indwelling Catheter Indwelling Catheter - Exam -GENERAL: The patient is alert and oriented x3, not in any acute distress. He is weak and lethargic. he is malnourished. HEENT: Pupils are round and equally reacting to light. EOMI. No scleral icterus. No conjunctival pallor. Normocephalic, atraumatic. No pharyngeal erythema. No thyromegaly. CARDIOVASCULAR: S1 and S2 present. No murmurs, rubs, or gallops. PULMONARY: Chest is clear to auscultation, no wheezing or crackles. -ABDOMEN: Soft, nontender, nondistended, normoactive bowel sounds. No palpable organomegaly. Has Benedict catheter in a Place. He has right femoral central line MUSCULOSKELETAL: No joint swelling or deformity. EXTREMITIES: No cyanosis, clubbing, or pedal edema. NEUROLOGICAL: Gross neurological examination did not reveal any focal deficits. SKIN: No rashes. - Labs CBC & Chem 7: 09/10/18 04:48 09/10/18 04:48 Labs: Abnormal Lab Results - Last 24 Hours (Table) 09/09/18 09/09/18 09/10/18 Range/Units 12:59 17:10 02:05 RBC (4.30-5.90) m/uL Hgb (13.0-17.5) gm/dL Hct (39.0-53.0) % MCV (80.0-100.0) fL MCHC (31.0-37.0) g/dL RDW (11.5-15.5) % Neutrophils # (1.3-7.7) k/uL Lymphocytes # (1.0-4.8) k/uL Macrocytosis Sodium (137-145) mmol/L Glucose (74-99) mg/dL POC Glucose (mg/dL) 174 H 147 H 150 H (75-99) mg/dL Calcium (8.4-10.2) mg/dL 09/10/18 09/10/18 09/10/18 Range/Units 04:48 04:48 06:48 RBC 2.19 L (4.30-5.90) m/uL Hgb 7.3 L (13.0-17.5) gm/dL Hct 23.8 L (39.0-53.0) % MCV 108.4 H (80.0-100.0) fL MCHC 30.6 L (31.0-37.0) g/dL RDW 16.0 H (11.5-15.5) % Neutrophils # 8.9 H (1.3-7.7) k/uL Lymphocytes # 0.4 L (1.0-4.8) k/uL Macrocytosis Marked A Sodium 133 L (137-145) mmol/L Glucose 110 H (74-99) mg/dL POC Glucose (mg/dL) 105 H (75-99) mg/dL Calcium 7.5 L (8.4-10.2) mg/dL 09/10/18 Range/Units 11:58 RBC (4.30-5.90) m/uL Hgb (13.0-17.5) gm/dL Hct (39.0-53.0) % MCV (80.0-100.0) fL MCHC (31.0-37.0) g/dL RDW (11.5-15.5) % Neutrophils # (1.3-7.7) k/uL Lymphocytes # (1.0-4.8) k/uL Macrocytosis Sodium (137-145) mmol/L Glucose (74-99) mg/dL POC Glucose (mg/dL) 135 H (75-99) mg/dL Calcium (8.4-10.2) mg/dL Assessment and Plan Assessment: Fall Alcohol withdrawal, with delirium tremens Acute hypoxic respiratory failure Possible aspiration pneumonia Acute COPD exacerbation COPD Unlikely urinary tract infection Dehydration and hypovolemia. Hypokalemia Alcohol abuse Nicotine dependence Anemia calories-protein malnutrition Plan: This is a pleasant 73 years old male who presents because of alcohol withdrawal and fall found to have COPD exacerbation/pneumonia, UTI. Pulmonary/critical care team input is appreciated. Continue with antibiotics and IV fluids., . Continue with CIWA protocol. Continue with vitamins. Continue with gentle hydr ation. Replace electrolytes and monitors them. follow-up culture results Labs and medication were reviewed.. Continue same treatment. Continue with symptomatic treatment. Resume home medication. Monitor lytes and vitals. DVT and GI prophylaxis. Further recommendations of the clinical course of the patient DVT prophylaxis: Subcutaneous heparin GI Prophylaxis: Pepcid PT/OT: Pending Prognosis is guarded
[2018-09-10 13:49] LABS: Appearance,Urine Cloudy (Clear); Bacteria,Urine Occasional /hpf; Bilirubin,Urine Negative (Negative); Blood,Urine Trace (Negative); Calcium Oxalate Crystals,Urine Rare /hpf; Color,Urine Yellow; Glucose,Urine (UA) Negative (Negative); Ketones,Urine Trace (Negative); Leukocyte Esterase,Urine Large (Negative); Mucus,Urine Rare /hpf; Nitrite,Urine Negative (Negative); PH, Urine 5.5 (5.0-8.0); Protein,Urine 1+ (Negative); RBC,Urine 7 /hpf (0-5); Specific Gravity,Urine 1.039 (1.001-1.035); Urobilinogen,Urine <2.0 mg/dL (<2.0)
--- NOTE | 2018-09-10 15:08 | P.PN ---
Subjective Progress Note Date: 09/10/18 This is a 73-year-old white male patient with history of chronic alcoholism, ch ronic smoker, chronic anemia, previous pneumonia, malnutrition related to history of alcoholism, was in to the hospital on 09/06/2018 for evaluation of falls at home. Patient was brought in by an ambulance, and reportedly he tripped while walking and fell backwards hitting back of his head on the fridge. There was no loss of consciousness at the time of the incident, and patient's daughter called the ambulance with the patient for evaluation. The patient was drinking prior to the incident. He denies any headaches, lightheadedness, dizziness, denied any vision changes, no nausea vomiting or diarrhea. Not on any blood thinners. CT of the head and cervical spine was completed and showed moderate cerebral atrophy, no acute intracranial abnormality and mild spondylosis at C6 and 7 no acute fractures were seen. He was kept overnight in the emergency department, he was started on CIWA protocol for acute alcohol withdrawal syndrome. Lab work was completed in the emergency department and showed a white blood cell count of 6.1, hemoglobin of 9.4, sodium was 134, potassium is 2.5 and this was replaced per protocol, chloride was 94, CO2 is 31, BUN was 13 creatinine was 0.87, AST is 31, ALT was 20, alkaline phosphatase was 147, proBNP was 525. Patient was noted to have decreased oxygenation, decreased sats, after Ativan was given proceed with protocol. His decreased air movement auscultated on the left side, he was placed on 100% nonrebreather and his pulse ox is 88-89%, chest x-ray was obtained, showing stable left-sided consolidation and pleural effusion, hemodynamically related to aspiration pneumonia and asymmetric pulmonary edema. She was started on breathing treatments, antibiotics in the form of Zosyn, and is admitted to the intensive care unit for closer monitoring. She was given IV hydration in the emergency department with a liter bolus, and maintenance IV is 0.9 normal saline at a rate of 50 ML per hour. During my evaluation patient is quite lethargic, but opens eyes to verbal stimuli, and he is quite confused, he is only oriented to person, and he thinks he is in [place], he remains on 100% nonrebreather his current pulse ox is 90-92%, hemodynamically stable, blood pressure is 112/86, afebrile. on today's evaluation of 09/08/2018, the patient was seen quite awake and alert this morning. There has been improvement in the mental status since yesterday. Overnight, the patient was brought into the intensive care because of an aspiration. Significant diminished breath sounds in the left lung base along with some volume loss in the chest x-ray. He was placed on on the percent nonrebreather facemask. He was given aggressive chest PT. He was kept nothing by mouth. Overnight he improved and earlier this morning he was weaned down to 6 L about 2 by nasal cannula and he was able to maintain a saturation above 90%. His breathing was not labored. He had a congested cough. Unable to bring up much sputum. The cough strength has improved compared to yesterday. He has no signs of any agitation. In fact neurologically seemed to do much more alert and awake and following commands and responding to questions. Later on by early aft ran, the patient became more confused and restless. At that point we implemented this CIWA protocol and the patient was given Ativan which controlled his been eating. The patient is currently on antibiotics. The patient on IV Zosyn. The chest x-ray from today shows showed volume loss in the right lung base along with development of bilateral pleural effusion. Based on all this, I kept on the IV fluids to KVO. I gave the patient dose of Lasix 40 mg IV push and following that the patient producing adequate amount of urine output in the order of 750 mL. He remains in oxygen by nasal cannula at 6 L. Significant leukocytosis. Hemoglobin stable at 8.7. Function is stable. No other si gnificant events otherwise for now. The main concern for now is his concern for pneumonia, respiratory failure and early a.m. His cough and mechanism has improved although it remains quite weak and somewhat ineffective and performing adequate pulmonary toileting. On 09/09/2018, the patient remains quite lethargic yet arousable. Chest x-ray still showing bilateral basal infiltrate and small better pleural effusion. His cough and presented to bring up much of sputum and his cough is weak. He is receiving PT. He is on 40% oxygen nasal cannula and his pulse is now 94%. I think that there is some aspiration related mucous plugs which the patient is unable to cough out. Nevertheless, despite his x-ray findings, he still breathing comfortably on 4 L of oxygen nasal cannula. No chest pain. No hemoptysis. No pleurisy. No agitation. He is breathing is nonlabored. He is receiving IV Zosyn. He is on IV Solu Medrol 40 mg every 8 hours. He is on DuoNeb nebulized treatments around the clock. His ammonia level is less than 9. On 09/10/2018, the patient is doing progress. He seems to be more awake. Is able to cough more effectively. His FiO2 has improved and is down to 40s about 2 by nasal cannula. His breathing is nonlabored. Chest x-ray showing bilateral consolidation lower lobe effusions. No chest pain. No aspiration. Is tolerating his diet is on DuoNeb nebulized treatment [id number] is on IV Solu-Medrol. He is on IV Zosyn. He is able to sit up on a chair. He remains quite weak and lethargic yet interactive and more talkative and communicating compared to yesterday. No focal neurological deficits for now. His urine remains quite cloudy and there is significant amount of sediment. The previously sent culture was contaminant and for that reason we sent another UA and urine culture. UA came back positive for white cells along with few clumps and there was occasional bacteria. There was also some crystals. Cultures are still pending for now. The patient is still on IV Zosyn. No seizure activity. No visual or auditory hallucinations on today's evaluation. Objective - Vital Signs Vital signs: Vital Signs Temp 98.5 F 09/10/18 12:00 Pulse 58 L 09/10/18 13:32 Resp 21 09/10/18 13:00 BP 143/68 09/10/18 13:00 Pulse Ox 94 L 09/10/18 13:00 Intake & Output 09/09/18 09/10/18 09/10/18 18:59 06:59 18:59 Intake Total 420 265 840 Output Total 252 320 255 Balance 168 -55 585 Weight 68.7 kg 68.7 kg Intake: IV 420 265 240 Piperacillin-Tazobactam 3 200 25 100 .375 gm In Sodium Chloride 0.9% 100 ml @ 25 mls/hr IVPB Q8HR [facility] Rx# :[id number] Sodium Chloride 0.9% 1, 220 240 140 000 ml @ 20 mls/hr IV . Q24H [facility] Rx#:[id number] Oral 600 Output: Urine 252 320 255 Other: Voiding Method Indwelling Catheter Indwelling Catheter Indwelling Catheter - Exam GENERAL EXAM: Much less Lethargic and less short of breath compared to yesterday. Currently on 4 L of oxygen nasal cannula. Awake and alert HEAD: Normocephalic/atraumatic. EYES: Normal reaction of pupils, equal size. Conjunctiva pink, sclera white. NOSE: Clear with pink turbinates. THROAT: No erythema or exudates. NECK: No masses, no JVD, no thyroid enlargement, no adenopathy. CHEST: No chest wall deformity. Symmetrical expansion. LUNGS: Equal air entry with decreased aeration on the left side, and a few scattered rhonchi's on the right, breath sounds continued to be diminished bilaterally more so on the left CVS: Regular rate and rhythm, normal S1 and S2, no gallops, no murmurs, no rubs ABDOMEN: Soft, nontender. No hepatosplenomegaly, normal bowel sounds, no guarding or rigidity. EXTREMITIES: No clubbing, redness, and chronic lower extremity edema, 2+ pitting edema no cyanosis, 2+ pulses and upper and lower extremities. MUSCULOSKELETAL: Muscle strength and tone normal. SPINE: No scoliosis or deformity SKIN: No rashes CENTRAL NERVOUS SYSTEM: Lethargic, but arousable to verbal stimuli, confused, oriented to person only. No focal deficits, tone is normal in all 4 extremities. Despite his increased alertness, the patient continues to be de lirious. He is having some occasional visual hallucinations. - Labs CBC & Chem 7: 09/10/18 04:48 09/10/18 04:48 Labs: Abnormal Lab Results - Last 24 Hours (Table) 09/09/18 09/10/18 09/10/18 Range/Units 17:10 02:05 04:48 RBC (4.30-5.90) m/uL Hgb (13.0-17.5) gm/dL Hct (39.0-53.0) % MCV (80.0-100.0) fL MCHC (31.0-37.0) g/dL RDW (11.5-15.5) % Neutrophils # (1.3-7.7) k/uL Lymphocytes # (1.0-4.8) k/uL Macrocytosis Sodium 133 L (137-145) mmol/L Glucose 110 H (74-99) mg/dL POC Glucose (mg/dL) 147 H 150 H (75-99) mg/dL Calcium 7.5 L (8.4-10.2) mg/dL Ur Specific [place] (1.001-1.035) Urine Protein (Negative) Urine Ketones (Negative) Urine Blood (Negative) Ur Leukocyte Esterase (Negative) Urine RBC (0-5) /hpf Urine WBC (0-5) /hpf Urine WBC Clumps (None) /hpf Calcium Oxalate Crystal (None) /hpf Urine Bacteria (None) /hpf Urine Mucus (None) /hpf 09/10/18 09/10/18 09/10/18 Range/Units 04:48 06:48 11:58 RBC 2.19 L (4.30-5.90) m/uL Hgb 7.3 L (13.0-17.5) gm/dL Hct 23.8 L (39.0-53.0) % MCV 108.4 H (80.0-100.0) fL MCHC 30.6 L (31.0-37.0) g/dL RDW 16.0 H (11.5-15.5) % Neutrophils # 8.9 H (1.3-7.7) k/uL Lymphocytes # 0.4 L (1.0-4.8) k/uL Macrocytosis Marked A Sodium (137-145) mmol/L Glucose (74-99) mg/dL POC Glucose (mg/dL) 105 H 135 H (75-99) mg/dL Calcium (8.4-10.2) mg/dL Ur Specific [place] (1.001-1.035) Urine Protein (Negative) Urine Ketones (Negative) Urine Blood (Negative) Ur Leukocyte Esterase (Negative) Urine RBC (0-5) /hpf Urine WBC (0-5) /hpf Urine WBC Clumps (None) /hpf Calcium Oxalate Crystal (None) /hpf Urine Bacteria (None) /hpf Urine Mucus (None) /hpf 09/10/18 Range/Units 12:00 RBC (4.30-5.90) m/uL Hgb (13.0-17.5) gm/dL Hct (39.0-53.0) % MCV (80.0-100.0) fL MCHC (31.0-37.0) g/dL RDW (11.5-15.5) % Neutrophils # (1.3-7.7) k/uL Lymphocytes # (1.0-4.8) k/uL Macrocytosis Sodium (137-145) mmol/L Glucose (74-99) mg/dL POC Glucose (mg/dL) (75-99) mg/dL Calcium (8.4-10.2) mg/dL Ur Specific [place] 1.039 H (1.001-1.035) Urine Protein 1+ H (Negative) Urine Ketones Trace H (Negative) Urine Blood Trace H (Negative) Ur Leukocyte Esterase Large H (Negative) Urine RBC 7 H (0-5) /hpf Urine WBC >182 H (0-5) /hpf Urine WBC Clumps Few H (None) /hpf Calcium Oxalate Crystal Rare H (None) /hpf Urine Bacteria Occasional H (None) /hpf Urine Mucus Rare H (None) /hpf Assessment and Plan Plan: #1. Acute hypoxemic respiratory failure related to suspected aspiration pneumonia, and mucus plugging in the left lung, chest x-ray showed left-sided consolidation and pleural effusion and the possibility of asymmetric pulmonary edema. The patient came into the intensive care unit. Initially was in the 100% nonrebreather facemask. He improved with aggressive pulmonary toileting. The patient continues to improve. He has been weaned down to 4 L of oxygen nasal cannula. Remains on IV Zosyn. No significant signs of any respiratory distress. Able to perform pulmonary toileting. #2. Acute delirium, related to acute alcohol withdrawal syndrome, currently on the CIWA protocol and the patient is requiring Ativan . Clinically, the patient is improved on today's evaluation. #3. Alcohol intoxication, falls at home, patient fell and hit his head while walking and tripping. CT head and cervical spine did not reveal any acute intracranial process or acute cervical fractures #4. Electrolyte abnormalities including mild hyponatremia, severe hypokalemia, hypochloremia, improved #5. Chronic anemia, stable hemoglobin #6. Chronic cigarette smoker #7. Chronic alcoholism with underlying malnutrition #8. Previous episode of pneumonia involving the left lower lobe in 2016 #9. Generalized weakness and debility and malnourishment #10 chronic lower extremity edema #11 urinary tract infection with a abnormal UA and the cultures still pending and the patient remains on IV Zosyn. Plan We'll need for bronchoscopy. Continue bronchodilators. Aggressive pulmonary toileting. Repeat chest x-ray in the morning. Continue Zosyn. Repeat UA and cultures.. Long-term prognosis poor baseline above-mentioned comorbidities. We'll continue to follow.
[2018-09-10] MEDS: SODIUM CHLORIDE 0.9% 1,000 ML IV SCH (16:54)
[2018-09-10 16:57] LABS: Glucose,Whole Blood 222 mg/dL (75-99)
[2018-09-10 20:37] LABS: Glucose,Whole Blood 104 mg/dL (75-99)
[2018-09-10] MEDS ORDERED: FUROSEMIDE 10 MG/ML 4 ML VIAL IV STA (22:21)
[2018-09-11] MEDS: PIPERACILLIN-TAZOBACTAM 3.375 GM in SODIUM CHLORIDE 0.9% 100 ML IVPB SCH ×4 (00:29→23:22)
[2018-09-11] MEDS: IPRATROPIUM-ALBUTEROL 3 ML NEB INHALATION PRN ×4 (01:51→23:58)
[2018-09-11 02:05] LABS: Glucose,Whole Blood 144 mg/dL (75-99)
[2018-09-11] MEDS: INSULIN ASPART (NovoLOG) 100 UNIT/ML VIAL SQ SCH ×5 (03:06→21:53)
[2018-09-11 06:21] LABS: Anisocytosis Slight; Basophils % (A) 0 %; Eosinophils % (A) 0 %; HCT 24.9 % (39.0-53.0); Hypochromasia Slight; Lymphocytes # (A) 0.4 k/uL (1.0-4.8); Lymphocytes % (A) 3 %; MCH 35.6 pg (25.0-35.0); MCV 111.3 fL (80.0-100.0); Mean Platelet Volume 7.5; Monocytes # (A) 0.4 k/uL (0-1.0); Monocytes % (A) 4 %; Neutrophils # (A) 9.9 k/uL (1.3-7.7); Neutrophils % (A) 92 %; Platelet Count 379 k/uL (150-450); RBC 2.24 m/uL (4.30-5.90); RDW 16.4 % (11.5-15.5); WBC 10.8 k/uL (3.8-10.6)
[2018-09-11 06:22] LABS: Macrocytosis Marked
[2018-09-11 06:26] LABS: Glucose,Whole Blood 161 mg/dL (75-99)
[2018-09-11 06:36] LABS: African American GFR (CKD) >90 (>60 ml/min/1.73 sqM); Anion Gap 3 mmol/L; Blood Urea Nitrogen 21 mg/dL (9-20); Calcium 7.8 mg/dL (8.4-10.2); Carbon Dioxide 28 mmol/L (22-30); Chloride 102 mmol/L (98-107); Glucose 137 mg/dL (74-99); Magnesium 2.1 mg/dL (1.6-2.3); Potassium 4.5 mmol/L (3.5-5.1); Sodium 133 mmol/L (137-145)
[2018-09-11] MEDS: THIAMINE 100 MG TAB PO SCH ×2 (06:58→17:06)
[2018-09-11] MEDS: MULTIVITAMINS, THERA 1 EACH TAB PO SCH (08:26)
[2018-09-11] MEDS: methylPREDNISolone SOD SUCCI 40 MG/ML 1 ML VIAL IV SCH (08:26)
[2018-09-11] MEDS: HEPARIN SODIUM,PORCINE 5,000 UNIT/ML 1 ML VIAL SQ SCH ×2 (08:26→21:53)
[2018-09-11] MEDS: FAMOTIDINE 20 MG TAB PO SCH ×2 (08:26→21:53)
[2018-09-11] MEDS: SODIUM CHLORIDE 0.9% 1,000 ML IV SCH (08:26)
--- NOTE | 2018-09-11 11:27 | P.PN ---
Subjective This is a pleasant 73 years old male with past medical history of anemia, alcohol abuse, cigarette smoker, malnutrition. Patient states that he came to the hospital because he fell on 1919 2 PM, when he felt backwards and he hit his head. After that he was lying on the floor without losing consciousness, no dizziness or syncope prior or after the fall. He thinks that his room made Kiran or his daughter called EMS for him. Patient denies headache. No chest pain or dyspnea. He states that he has chronic cough with phlegm. No chest pain or abdominal pain. No nausea vomiting. No change in urine or bowel habits. No fever. He's not sure about his walking and how was he do one prior to fall. Patient is afebrile, blood pressure 102/73, heart rate 68, respiratory rate 21, is saturating 88% on room air. His CBC showed normal WBC, hemoglobin 9.4. Platelet 439. Electrolytes showing sodium 134, potassium 2.5, went up to 4.9. Creatinine 0.8. Glucose 115. Liver enzymes elevated rate low albumin at 2.5. TSH 3.1. CAT scan of the head showing cerebral atrophy, CT of the cervical spine showing no fracture as per radiologist. Patient has already been started on CIWA protocol. Patient admitted to the intensive care unit upon admission 09/08/2018 Patient remains in the ICU for alcohol withdrawal on CIWA protocol., Yesterday evening patient got hypoxic while he is getting the Ativan. Chest x-ray was obtained which was suspicious for COPD/pneumonia. There was concern for aspiration pneumonia. Pulmonary team was been called to evaluate the patient. Right femoral line was placed, Benedict catheter with turbid urine was placed. Urinalysis was suspicious for infection. Patient was started on Zosyn. Urine culture is pending. Currently patient is saturating 97% on 6 L oxygen nasal cannula. Blood pressure is 97/54, his currently on normal saline and 1 25 mL/h. Has expiratory wheezing, Steroids is added. labs showing WBC of 10.4 K, hemoglobin 8.7. Potassium 3.3 and magnesium 2.0. Liver enzymes not elevated. 09/09/2018 Patient still generally weak although a slightly improving. He remains on CIWA protocol. He is breathing quietly however is saturating 97% on 4 L oxygen via nasal cannula. Afebrile. With no leukocytosis. Repeat chest x-ray: Bibasilar infiltrates with a small effusion. Patient remains on Zosyn for possible aspiration pneumonia and urinary tract infection. However urine culture is negative. He got Lasix yesterday. Patient on steroids for possible COPD competent. 09/10/2018 patient is seen today in the ICU. He is more awake and alert and less lethargic. The bed to chair. His breathing is better but still tachypneic. He is on 4 L oxygen today. He is afebrile. Labs from today are unremarkable including CBC and BMP. Sugar is controlled. Magnesium is 2.2. Chest x-ray: Persistent right perihilar and left basilar infiltrates. We are his steroids. He remains on antibiotics. Pulmonary input is appreciated and they are following the patient closely 09/11/2018 Patient is seen today in the general medical floor at [facility]. He was transferred out of the ICU. Patient is sitting bit more awake and alert. He is calm. Not in respiratory distress. However he still generally weak and he has a swelling in his legs and scrotum. He got 1 dose of Lasix. Or coughing, he says he comes occasionally but he says his breathing is improving. Patient with no dyspnea while at rest. We will check echocardiogram for his leg swelling. No signs symptoms of local withdrawal and his mentation is intact today. Vitals are stable. He is saturating 93% on 4 L oxygen via NC. WBC is 10.8 K, which is mildly increased. Cultures so far are negative Hemoglobin 8.0. Repeat UA still s showing infection. We will order renal ultrasound Review of systems CONSTITUTIONAL: No fever, no malaise, no fatigue. HEENT: No recent visual problems or hearing problems. Denied any sore throat. CARDIOVASCULAR: No orthopnea, PND, no palpitations, no syncope. PULMONARY: no hemoptysis. GASTROINTESTINAL: No diarrhea, no nausea, no vomiting, no abdominal pain. Normoactive bowel sounds. NEUROLOGICAL: No headaches, no weakness, no numbness. HEMATOLOGICAL: Denies any bleeding or petechiae. GENITOURINARY: Denies any burning micturition, frequency, or urgency. MUSCULOSKELETAL/RHEUMATOLOGICAL: Denies any joint pain, swelling, or any muscle pain. ENDOCRINE: Denies any polyuria or polydipsia. Medication: Albuterol 0.5-3 mg, Pepcid 20 mg, heparin 5000 units, Motrin 400 mg, NovoLog insulin, Solu-Medrol 40 mg change to prednisone 30 mg , Zofran 4 mg, Zosyn 3.375 mg, thiamine 100 mg Objective - Vital Signs Vital signs: Vital Signs Temp 98.2 F 09/11/18 08:00 Pulse 85 09/11/18 08:08 Resp 20 09/11/18 08:00 BP 111/69 09/11/18 08:00 Pulse Ox 93 L 09/11/18 08:00 Intake & Output 09/10/18 09/11/18 09/11/18 18:59 06:59 18:59 Intake Total 900 200 240 Output Total 425 1965 300 Balance 211 -2175 -73 Weight 68.7 kg 68 kg Intake: IV 300 200 Piperacillin-Tazobactam 3 100 100 .375 gm In Sodium Chloride 0.9% 100 ml @ 25 mls/hr IVPB Q8HR SANDY Rx# :[id number] Sodium Chloride 0.9% 1, 200 100 000 ml @ 20 mls/hr IV . Q24H SANDY Rx#:[id number] Oral 600 240 Output: Urine 425 1965 300 Other: Voiding Method Indwelling Catheter Indwelling Catheter # Voids 2 - Exam -GENERAL: The patient is alert and oriented x3, not in any acute distress. He is weak and lethargic. he is malnourished. HEENT: Pupils are round and equally reacting to light. EOMI. No scleral icterus. No conjunctival pallor. Normocephalic, atraumatic. No pharyngeal erythema. No th yromegaly. CARDIOVASCULAR: S1 and S2 present. No murmurs, rubs, or gallops. PULMONARY: Chest is clear to auscultation, no wheezing or crackles. -ABDOMEN: Soft, nontender, nondistended, normoactive bowel sounds. No palpable organomegaly. Has Benedict catheter in a Place. He has right femoral central line MUSCULOSKELETAL: No joint swelling or deformity. EXTREMITIES: No cyanosis, clubbing, or pedal edema. NEUROLOGICAL: Gross neurological examination did not reveal any focal deficits. SKIN: No rashes. - Labs CBC & Chem 7: 09/11/18 05:44 09/11/18 05:44 Labs: Abnormal Lab Results - Last 24 Hours (Table) 09/10/18 09/10/18 09/10/18 Range/Units 11:58 12:00 16:55 WBC (3.8-10.6) k/uL RBC (4.30-5.90) m/uL Hgb (13.0-17.5) gm/dL Hct (39.0-53.0) % MCV (80.0-100.0) fL MCH (25.0-35.0) pg RDW (11.5-15.5) % Neutrophils # (1.3-7.7) k/uL Lymphocytes # (1.0-4.8) k/uL Macrocytosis Sodium (137-145) mmol/L BUN (9-20) mg/dL Glucose (74-99) mg/dL POC Glucose (mg/dL) 135 H 222 H (75-99) mg/dL Calcium (8.4-10.2) mg/dL Ur Specific [place] 1.039 H (1.001-1.035) Urine Protein 1+ H (Negative) Urine Ketones Trace H (Negative) Urine Blood Trace H (Negative) Ur Leukocyte Esterase Large H (Negative) Urine RBC 7 H (0-5) /hpf Urine WBC >182 H (0-5) /hpf Urine WBC Clumps Few H (None) /hpf Calcium Oxalate Crystal Rare H (None) /hpf Urine Bacteria Occasional H (None) /hpf Urine Mucus Rare H (None) /hpf 09/10/18 09/11/18 09/11/18 Range/Units 20:34 02:04 05:44 WBC (3.8-10.6) k/uL RBC (4.30-5.90) m/uL Hgb (13.0-17.5) gm/dL Hct (39.0-53.0) % MCV (80.0-100.0) fL MCH (25.0-35.0) pg RDW (11.5-15.5) % Neutrophils # (1.3-7.7) k/uL Lymphocytes # (1.0-4.8) k/uL Macrocytosis Sodium 133 L (137-145) mmol/L BUN 21 H (9-20) mg/dL Glucose 137 H (74-99) mg/dL POC Glucose (mg/dL) 104 H 144 H (75-99) mg/dL Calcium 7.8 L (8.4-10.2) mg/dL Ur Specific [place] (1.001-1.035) Urine Protein (Negative) Urine Ketones (Negative) Urine Blood (Negative) Ur Leukocyte Esterase (Negative) Urine RBC (0-5) /hpf Urine WBC (0-5) /hpf Urine WBC Clumps (None) /hpf Calcium Oxalate Crystal (None) /hpf Urine Bacteria (None) /hpf Urine Mucus (None) /hpf 09/11/18 09/11/18 Range/Units 05:44 06:25 WBC 10.8 H (3.8-10.6) k/uL RBC 2.24 L (4.30-5.90) m/uL Hgb 8.0 L (13.0-17.5) gm/dL Hct 24.9 L (39.0-53.0) % MCV 111.3 H (80.0-100.0) fL MCH 35.6 H (25.0-35.0) pg RDW 16.4 H (11.5-15.5) % Neutrophils # 9.9 H (1.3-7.7) k/uL Lymphocytes # 0.4 L (1.0-4.8) k/uL Macrocytosis Marked A Sodium (137-145) mmol/L BUN (9-20) mg/dL Glucose (74-99) mg/dL POC Glucose (mg/dL) 161 H (75-99) mg/dL Calcium (8.4-10.2) mg/dL Ur Specific [place] (1.001-1.035) Urine Protein (Negative) Urine Ketones (Negative) Urine Blood (Negative) Ur Leukocyte Esterase (Negative) Urine RBC (0-5) /hpf Urine WBC (0-5) /hpf Urine WBC Clumps (None) /hpf Calcium Oxalate Crystal (None) /hpf Urine Bacteria (None) /hpf Urine Mucus (None) /hpf Microbiology - Last 24 Hours (Table) 09/10/18 12:00 Urine Culture - Preliminary Urine,Voided Assessment and Plan Assessment: Fall Alcohol withdrawal, with delirium tremens Acute hypoxic respiratory failure Possible aspiration pneumonia Acute COPD exacerbation COPD Unlikely urinary tract infection Dehydration and hypovolemia. Hypokalemia Alcohol abuse Nicotine dependence Anemia calories-protein malnutrition Plan: This is a pleasant 73 years old male who presents because of alcohol withdrawal and fall found to have COPD exacerbation/pneumonia, UTI. Pulmonary/critical care team input is appreciated. Continue with antibiotics and IV fluids., . Continue with CIWA protocol. Continue with vitamins. Continue with gentle hydration. Replace electrolytes and monitors them. follow-up culture results Labs and medication were reviewed.. Continue same treatment. Continue with symptomatic treatment. Resume home medication. Monitor lytes and vitals. DVT and GI prophylaxis. Further recommendations of the clinical course of the patient DVT prophylaxis: Subcutaneous heparin GI Prophylaxis: Pepcid PT/OT: Pending Prognosis is guarded
[2018-09-11 12:06] LABS: Glucose,Whole Blood 206 mg/dL (75-99)
--- NOTE | 2018-09-11 12:28 | US ---
EXAMINATION TYPE: US kidneys/renal and bladder DATE OF EXAM: 09/11/2018 COMPARISON: CT 2018 CLINICAL HISTORY: persistent UTI . Hematuria, exam done portable. EXAM MEASUREMENTS: Right Kidney: 9.5 x 4.7 x 4.4 cm Left Kidney: 9.3 x 5.2 x 4.7 cm Right Kidney: no hydronephrosis or masses seen Left Kidney: no hydronephrosis or masses seen Bladder: not fully distended Left pleural effusion noted IMPRESSION: 1. Normal renal ultrasound. 2. Small left pleural effusion noted.
--- NOTE | 2018-09-11 14:13 | P.PN ---
Subjective Progress Note Date: 09/11/18 This is a 73-year-old white male patient with history of chronic alcoholism, ch ronic smoker, chronic anemia, previous pneumonia, malnutrition related to history of alcoholism, was in to the hospital on 09/06/2018 for evaluation of falls at home. Patient was brought in by an ambulance, and reportedly he tripped while walking and fell backwards hitting back of his head on the fridge. There was no loss of consciousness at the time of the incident, and patient's daughter called the ambulance with the patient for evaluation. The patient was drinking prior to the incident. He denies any headaches, lightheadedness, dizziness, denied any vision changes, no nausea vomiting or diarrhea. Not on any blood thinners. CT of the head and cervical spine was completed and showed moderate cerebral atrophy, no acute intracranial abnormality and mild spondylosis at C6 and 7 no acute fractures were seen. He was kept overnight in the emergency department, he was started on CIWA protocol for acute alcohol withdrawal syndrome. Lab work was completed in the emergency department and showed a white blood cell count of 6.1, hemoglobin of 9.4, sodium was 134, potassium is 2.5 and this was replaced per protocol, chloride was 94, CO2 is 31, BUN was 13 creatinine was 0.87, AST is 31, ALT was 20, alkaline phosphatase was 147, proBNP was 525. Patient was noted to have decreased oxygenation, decreased sats, after Ativan was given proceed with protocol. His decreased air movement auscultated on the left side, he was placed on 100% nonrebreather and his pulse ox is 88-89%, chest x-ray was obtained, showing stable left-sided consolidation and pleural effusion, hemodynamically related to aspiration pneumonia and asymmetric pulmonary edema. She was started on breathing treatments, antibiotics in the form of Zosyn, and is admitted to the intensive care unit for closer monitoring. She was given IV hydration in the emergency department with a liter bolus, and maintenance IV is 0.9 normal saline at a rate of 50 ML per hour. During my evaluation patient is quite lethargic, but opens eyes to verbal stimuli, and he is quite confused, he is only oriented to person, and he thinks he is in [place], he remains on 100% nonrebreather his current pulse ox is 90-92%, hemodynamically stable, blood pressure is 112/86, afebrile. on today's evaluation of 09/08/2018, the patient was seen quite awake and alert this morning. There has been improvement in the mental status since yesterday. Overnight, the patient was brought into the intensive care because of an aspiration. Significant diminished breath sounds in the left lung base along with some volume loss in the chest x-ray. He was placed on on the percent nonrebreather facemask. He was given aggressive chest PT. He was kept nothing by mouth. Overnight he improved and earlier this morning he was weaned down to 6 L about 2 by nasal cannula and he was able to maintain a saturation above 90%. His breathing was not labored. He had a congested cough. Unable to bring up much sputum. The cough strength has improved compared to yesterday. He has no signs of any agitation. In fact neurologically seemed to do much more alert and awake and following commands and responding to questions. Later on by early aft ran, the patient became more confused and restless. At that point we implemented this CIWA protocol and the patient was given Ativan which controlled his been eating. The patient is currently on antibiotics. The patient on IV Zosyn. The chest x-ray from today shows showed volume loss in the right lung base along with development of bilateral pleural effusion. Based on all this, I kept on the IV fluids to KVO. I gave the patient dose of Lasix 40 mg IV push and following that the patient producing adequate amount of urine output in the order of 750 mL. He remains in oxygen by nasal cannula at 6 L. Significant leukocytosis. Hemoglobin stable at 8.7. Function is stable. No other si gnificant events otherwise for now. The main concern for now is his concern for pneumonia, respiratory failure and early a.m. His cough and mechanism has improved although it remains quite weak and somewhat ineffective and performing adequate pulmonary toileting. On 09/09/2018, the patient remains quite lethargic yet arousable. Chest x-ray still showing bilateral basal infiltrate and small better pleural effusion. His cough and presented to bring up much of sputum and his cough is weak. He is receiving PT. He is on 40% oxygen nasal cannula and his pulse is now 94%. I think that there is some aspiration related mucous plugs which the patient is unable to cough out. Nevertheless, despite his x-ray findings, he still breathing comfortably on 4 L of oxygen nasal cannula. No chest pain. No hemoptysis. No pleurisy. No agitation. He is breathing is nonlabored. He is receiving IV Zosyn. He is on IV Solu Medrol 40 mg every 8 hours. He is on DuoNeb nebulized treatments around the clock. His ammonia level is less than 9. On 09/10/2018, the patient is doing progress. He seems to be more awake. Is able to cough more effectively. His FiO2 has improved and is down to 40s about 2 by nasal cannula. His breathing is nonlabored. Chest x-ray showing bilateral consolidation lower lobe effusions. No chest pain. No aspiration. Is tolerating his diet is on DuoNeb nebulized treatment [id number] is on IV Solu-Medrol. He is on IV Zosyn. He is able to sit up on a chair. He remains quite weak and lethargic yet interactive and more talkative and communicating compared to yesterday. No focal neurological deficits for now. His urine remains quite cloudy and there is significant amount of sediment. The previously sent culture was contaminant and for that reason we sent another UA and urine culture. UA came back positive for white cells along with few clumps and there was occasional bacteria. There was also some crystals. Cultures are still pending for now. The patient is still on IV Zosyn. No seizure activity. No visual or auditory hallucinations on today's evaluation. On 09/11/2018, the patient is being seen in the medical floor. He is doing wel l. No significant complaints for now. He seems to much more alert and awake. No hallucinations. No delusions. No tremors. No altered mentation. Echocardiogram is to be done today. No significant respiratory distress. Currently he is on 4 L of oxygen nasal cannula. He was diuresed with IV Lasix and the dose of Lasix was given to him overnight. He is on a IV Solu Medrol which will be tapered down to prednisone burst taper. He is tolerating his diet. No nausea. No vomiting. Urine culture is still pending for now. Meanwhile, the patient does not show any signs of septicemia. He remains on IV Zosyn. Objective - Vital Signs Vital signs: Vital Signs Temp 98.2 F 09/11/18 08:00 Pulse 60 09/11/18 12:00 Resp 20 09/11/18 12:00 BP 111/67 09/11/18 12:00 Pulse Ox 92 L 09/11/18 12:00 Intake & Output 09/10/18 09/11/18 09/11/18 18:59 06:59 18:59 Intake Total 900 200 720 Output Total 425 1965 300 Balance 864 -3376 450 Weight 68.7 kg 68 kg Intake: IV 300 200 Piperacillin-Tazobactam 3 100 100 .375 gm In Sodium Chloride 0.9% 100 ml @ 25 mls/hr IVPB Q8HR SANDY Rx# :[id number] Sodium Chloride 0.9% 1, 200 100 000 ml @ 20 mls/hr IV . Q24H SANDY Rx#:[id number] Oral 600 720 Output: Urine 425 1965 300 Other: Voiding Method Indwelling Catheter Indwelling Catheter # Voids 2 # Bowel Movements 0 - Exam GENERAL EXAM: Much less Lethargic and less short of breath compared to yesterday. Currently on 4 L of oxygen nasal cannula. Awake and alert HEAD: Normocephalic/atraumatic. EYES: Normal reaction of pupils, equal size. Conjunctiva pink, sclera white. NOSE: Clear with pink turbinates. THROAT: No erythema or exudates. NECK: No masses, no JVD, no thyroid enlargement, no adenopathy. CHEST: No chest wall deformity. Symmetrical expansion. LUNGS: Equal air entry with decreased aeration on the left side, and a few scattered rhonchi's on the right, breath sounds continued to be diminished bilaterally more so on the left CVS: Regular rate and rhythm, normal S1 and S2, no gallops, no murmurs, no rubs ABDOMEN: Soft, nontender. No hepatosplenomegaly, normal bowel sounds, no guarding or rigidity. EXTREMITIES: No clubbing, redness, and chronic lower extremity edema, 2+ pitting edema no cyanosis, 2+ pulses and upper and lower extremities. MUSCULOSKELETAL: Muscle strength and tone normal. SPINE: No scoliosis or deformity SKIN: No rashes CENTRAL NERVOUS SYSTEM: Lethargic, but arousable to verbal stimuli, confused, oriented to person only. No focal deficits, tone is normal in all 4 extremities. Despite his increased alertness, the patient continues to be delirious. He is having some occasional visual hallucinations. - Labs CBC & Chem 7: 09/11/18 05:44 09/11/18 05:44 Labs: Abnormal Lab Results - Last 24 Hours (Table) 09/10/18 09/10/18 09/11/18 Range/Units 16:55 20:34 02:04 WBC (3.8-10.6) k/uL RBC (4.30-5.90) m/uL Hgb (13.0-17.5) gm/dL Hct (39.0-53.0) % MCV (80.0-100.0) fL MCH (25.0-35.0) pg RDW (11.5-15.5) % Neutrophils # (1.3-7.7) k/uL Lymphocytes # (1.0-4.8) k/uL Macrocytosis Sodium (137-145) mmol/L BUN (9-20) mg/dL Glucose (74-99) mg/dL POC Glucose (mg/dL) 222 H 104 H 144 H (75-99) mg/dL Calcium (8.4-10.2) mg/dL 09/11/18 09/11/18 09/11/18 Range/Units 05:44 05:44 06:25 WBC 10.8 H (3.8-10.6) k/uL RBC 2.24 L (4.30-5.90) m/uL Hgb 8.0 L (13.0-17.5) gm/dL Hct 24.9 L (39.0-53.0) % MCV 111.3 H (80.0-100.0) fL MCH 35.6 H (25.0-35.0) pg RDW 16.4 H (11.5-15.5) % Neutrophils # 9.9 H (1.3-7.7) k/uL Lymphocytes # 0.4 L (1.0-4.8) k/uL Macrocytosis Marked A Sodium 133 L (137-145) mmol/L BUN 21 H (9-20) mg/dL Glucose 137 H (74-99) mg/dL POC Glucose (mg/dL) 161 H (75-99) mg/dL Calcium 7.8 L (8.4-10.2) mg/dL 09/11/18 Range/Units 12:05 WBC (3.8-10.6) k/uL RBC (4.30-5.90) m/uL Hgb (13.0-17.5) gm/dL Hct (39.0-53.0) % MCV (80.0-100.0) fL MCH (25.0-35.0) pg RDW (11.5-15.5) % Neutrophils # (1.3-7.7) k/uL Lymphocytes # (1.0-4.8) k/uL Macrocytosis Sodium (137-145) mmol/L BUN (9-20) mg/dL Glucose (74-99) mg/dL POC Glucose (mg/dL) 206 H (75-99) mg/dL Calcium (8.4-10.2) mg/dL Microbiology - Last 24 Hours (Table) 09/10/18 12:00 Urine Culture - Preliminary Urine,Voided Assessment and Plan Plan: #1. Acute hypoxemic respiratory failure related to suspected aspiration pneu monia, and mucus plugging in the left lung, chest x-ray showed left-sided consolidation and pleural effusion and the possibility of asymmetric pulmonary edema. The patient came into the intensive care unit. Initially was in the 100% nonrebreather facemask. He improved with aggressive pulmonary toileting. The patient continues to improve. He has been weaned down to 4 L of oxygen nasal cannula. Remains on IV Zosyn. No significant signs of any respiratory distress. Able to perform pulmonary toileting. Clinically the patient continues to improve. No major respiratory distress on today's evaluation. #2. Acute delirium, related to acute alcohol withdrawal syndrome, recovered and the patient is back to his baseline #3. Alcohol intoxication, falls at home, patient fell and hit his head while walking and tripping. CT head and cervical spine did not reveal any acute intracranial process or acute cervical fractures #4. Electrolyte abnormalities including mild hyponatremia, severe hypokalemia, hypochloremia, improved #5. Chronic anemia, stable hemoglobin #6. Chronic cigarette smoker #7. Chronic alcoholism with underlying malnutrition #8. Previous episode of pneumonia involving the left lower lobe in 2016 #9. Generalized weakness and debility and malnourishment #10 chronic lower extremity edema #11 urinary tract infection with a abnormal UA and the cultures still pending and the patient remains on IV Zosyn. Plan 1 need for bronchoscopy. Repeat a chest x-ray in the morning. Aspiration precautions. Wean down the FiO2 as tolerated. Awaiting the final urine cultures. We'll continue to follow.
[2018-09-11 16:35] LABS: Glucose,Whole Blood 177 mg/dL (75-99)
[2018-09-11 18:58] LABS: Hemoglobin A1C 6.4 % (4.0-6.0)
[2018-09-11 20:53] LABS: Glucose,Whole Blood 163 mg/dL (75-99)
[2018-09-12] MEDS ORDERED: FUROSEMIDE 10 MG/ML 4 ML VIAL IV STA ×2 (00:14→01:11)
--- NOTE | 2018-09-12 00:22 | XR ---
EXAM: XR Chest, 1 View CLINICAL HISTORY: ITS.REASON XR Reason: RACHEAL TECHNIQUE: Frontal view of the chest. COMPARISON: No relevant prior studies available. FINDINGS: Lungs: Bibasilar atelectasis. Cannot exclude infiltrates in the mid lung bilaterally. Pleural space: Bilateral pleural effusions. No pneumothorax. Heart: No pneumomediastinum. Mediastinum: Unremarkable. Bones/joints: No definite fracture. IMPRESSION: 1. Bilateral pleural effusions. 2. Bibasilar atelectasis. 3. Cannot exclude infiltrates in the mid lung bilaterally.
--- NOTE | 2018-09-12 00:23 | XR ---
EXAM: XR Abdomen, 1 View CLINICAL HISTORY: ITS.REASON XR Reason: change in urine/stool TECHNIQUE: Frontal supine view of the abdomen/pelvis. COMPARISON: No relevant prior studies available. FINDINGS: Gastrointestinal tract: Dilated small bowel loops are present. Bones/joints: Unremarkable. Tubes, lines and devices: Right femoral catheter terminates in the right hemipelvis. IMPRESSION: Dilated small bowel loops are present. Obstruction versus paralytic ileus.
[2018-09-12 00:46] LABS: Basophils % (A) 0 %; Eosinophils % (A) 0 %; HCT 29.1 % (39.0-53.0); HGB 8.6 gm/dL (13.0-17.5); Hypochromasia Marked; Lymphocytes # (A) 1.3 k/uL (1.0-4.8); Lymphocytes % (A) 13 %; MCH 32.8 pg (25.0-35.0); MCHC 29.5 g/dL (31.0-37.0); MCV 111.2 fL (80.0-100.0); Mean Platelet Volume 7.3; Monocytes # (A) 0.5 k/uL (0-1.0); Monocytes % (A) 5 %; Neutrophils % (A) 80 %; Platelet Count 576 k/uL (150-450); RBC 2.62 m/uL (4.30-5.90); RDW 15.8 % (11.5-15.5)
[2018-09-12 00:51] LABS: Macrocytosis Marked
[2018-09-12 00:57] LABS: ALT 21 U/L (21-72); AST 41 U/L (17-59); African American GFR (CKD) >90 (>60 ml/min/1.73 sqM); Albumin 2.6 g/dL (3.5-5.0); Alkaline Phosphatase 141 U/L (38-126); Anion Gap 4 mmol/L; Blood Urea Nitrogen 21 mg/dL (9-20); Calcium 8.1 mg/dL (8.4-10.2); Carbon Dioxide 30 mmol/L (22-30); Chloride 100 mmol/L (98-107); Glucose 114 mg/dL (74-99); Potassium 4.7 mmol/L (3.5-5.1); Sodium 134 mmol/L (137-145); Total Bilirubin 0.2 mg/dL (0.2-1.3); Total Protein 5.4 g/dL (6.3-8.2)
[2018-09-12 02:02] LABS: Glucose,Whole Blood 162 mg/dL (75-99)
[2018-09-12 02:58] LABS: Glucose,Whole Blood 141 mg/dL (75-99)
[2018-09-12] MEDS: INSULIN ASPART (NovoLOG) 100 UNIT/ML VIAL SQ SCH ×5 (03:52→21:09)
[2018-09-12 03:53] LABS: Glucose,Whole Blood 122 mg/dL (75-99)
--- NOTE | 2018-09-12 05:03 | CT ---
EXAM: CT Chest Without Intravenous Contrast CLINICAL HISTORY: ITS.REASON CT Reason: possible ileus TECHNIQUE: Axial computed tomography images of the chest without intravenous contrast. This CT exam was performed using one or more of the following dose reduction techniques: automated exposure control, adjustment of the mA and/or kV according to patient size, and/or use of iterative reconstruction technique. COMPARISON: 01/22/18 FINDINGS: Lungs: Emphysema. Multifocal interstitial infiltrates, not present on the prior scan. Pleural space: Moderate right and small left pleural effusions with atelectasis. No pneumothorax. Heart: Unremarkable. No cardiomegaly. No significant pericardial effusion. Bones/joints: No acute fracture. No dislocation. Soft tissues: Unremarkable. Vasculature: Unremarkable. No thoracic aortic aneurysm. Lymph nodes: Unremarkable. No enlarged lymph nodes. Tubes, lines and devices: NG tube in the stomach. IMPRESSION: Moderate right and small left pleural effusions with atelectasis. Interstitial infiltrates. EXAM: CT Abdomen and Pelvis Without Intravenous Contrast CLINICAL HISTORY: ITS.REASON CT Reason: possible ileus TECHNIQUE: Axial computed tomography images of the abdomen and pelvis without intravenous contrast. This CT exam was performed using one or more of the following dose reduction techniques: automated exposure control, adjustment of the mA and/or kV according to patient size, and/or use of iterative reconstruction technique. COMPARISON: No relevant prior studies available. FINDINGS: Lung bases: Unremarkable. No mass. No consolidation. ABDOMEN: Liver: No suspicious mass. Gallbladder and bile ducts: No abnormal ductal dilation or stones. Pancreas: Unremarkable. No ductal dilation. Spleen: Unremarkable. No splenomegaly. Adrenals: Unremarkable. No mass. Kidneys and ureters: No obstructing stones. No hydronephrosis. Stomach and bowel: Colonic diverticulosis without inflammation. No bowel dilatation or wall thickening. PELVIS: Appendix: No findings to suggest acute appendicitis. Bladder: Benedict in the bladder. No stones. Reproductive: Unremarkable as visualized. ABDOMEN and PELVIS: Intraperitoneal space: Unremarkable. No free air. No significant fluid collection. Bones/joints: No acute fracture. No dislocation. Soft tissues: Anasarca. Vasculature: No abdominal aortic aneurysm. Lymph nodes: Unremarkable. No enlarged lymph nodes. Tubes, lines and devices: Central line terminates in the right common iliac vein. IMPRESSION: No acute findings.
[2018-09-12 05:48] LABS: Appearance,Urine Turbid (Clear); Bacteria,Urine Many /hpf; Bilirubin,Urine Negative (Negative); Blood,Urine Moderate (Negative); Color,Urine Dark Brown; Glucose,Urine (UA) Negative (Negative); Ketones,Urine Negative (Negative); Leukocyte Esterase,Urine Large (Negative); Nitrite,Urine Negative (Negative); Protein,Urine 3+ (Negative); RBC,Urine 30 /hpf (0-5); Urobilinogen,Urine <2.0 mg/dL (<2.0); WBC,Urine >182 /hpf (0-5)
[2018-09-12 05:50] LABS: Specific Gravity,Urine 1.022 (1.001-1.035)
[2018-09-12 07:00] LABS: Glucose,Whole Blood 108 mg/dL (75-99)
[2018-09-12] MEDS: IPRATROPIUM-ALBUTEROL 3 ML NEB INHALATION PRN ×4 (07:22→20:31)
[2018-09-12 08:24] LABS: Amylase 53 U/L (30-110); Lipase 223 U/L (23-300)
[2018-09-12] MEDS: PIPERACILLIN-TAZOBACTAM 3.375 GM in SODIUM CHLORIDE 0.9% 100 ML IVPB SCH ×3 (10:01→23:25)
[2018-09-12] MEDS: FAMOTIDINE 20 MG TAB PO SCH ×2 (10:01→21:09)
[2018-09-12] MEDS: THIAMINE 100 MG TAB PO SCH ×2 (10:01→17:08)
[2018-09-12] MEDS: predniSONE 10 MG TAB PO SCH (10:01)
[2018-09-12] MEDS: MULTIVITAMINS, THERA 1 EACH TAB PO SCH (10:01)
[2018-09-12] MEDS: HEPARIN SODIUM,PORCINE 5,000 UNIT/ML 1 ML VIAL SQ SCH ×2 (10:02→21:09)
--- NOTE | 2018-09-12 11:24 | P.PN ---
Subjective Progress Note Date: 09/12/18 This is a 73-year-old white male patient with history of chronic alcoholism, ch ronic smoker, chronic anemia, previous pneumonia, malnutrition related to history of alcoholism, was in to the hospital on 09/06/2018 for evaluation of falls at home. Patient was brought in by an ambulance, and reportedly he tripped while walking and fell backwards hitting back of his head on the fridge. There was no loss of consciousness at the time of the incident, and patient's daughter called the ambulance with the patient for evaluation. The patient was drinking prior to the incident. He denies any headaches, lightheadedness, dizziness, denied any vision changes, no nausea vomiting or diarrhea. Not on any blood thinners. CT of the head and cervical spine was completed and showed moderate cerebral atrophy, no acute intracranial abnormality and mild spondylosis at C6 and 7 no acute fractures were seen. He was kept overnight in the emergency department, he was started on CIWA protocol for acute alcohol withdrawal syndrome. Lab work was completed in the emergency department and showed a white blood cell count of 6.1, hemoglobin of 9.4, sodium was 134, potassium is 2.5 and this was replaced per protocol, chloride was 94, CO2 is 31, BUN was 13 creatinine was 0.87, AST is 31, ALT was 20, alkaline phosphatase was 147, proBNP was 525. Patient was noted to have decreased oxygenation, decreased sats, after Ativan was given proceed with protocol. His decreased air movement auscultated on the left side, he was placed on 100% nonrebreather and his pulse ox is 88-89%, chest x-ray was obtained, showing stable left-sided consolidation and pleural effusion, hemodynamically related to aspiration pneumonia and asymmetric pulmonary edema. She was started on breathing treatments, antibiotics in the form of Zosyn, and is admitted to the intensive care unit for closer monitoring. She was given IV hydration in the emergency department with a liter bolus, and maintenance IV is 0.9 normal saline at a rate of 50 ML per hour. During my evaluation patient is quite lethargic, but opens eyes to verbal stimuli, and he is quite confused, he is only oriented to person, and he thinks he is in [place], he remains on 100% nonrebreather his current pulse ox is 90-92%, hemodynamically stable, blood pressure is 112/86, afebrile. on today's evaluation of 09/08/2018, the patient was seen quite awake and alert this morning. There has been improvement in the mental status since yesterday. Overnight, the patient was brought into the intensive care because of an aspiration. Significant diminished breath sounds in the left lung base along with some volume loss in the chest x-ray. He was placed on on the percent nonrebreather facemask. He was given aggressive chest PT. He was kept nothing by mouth. Overnight he improved and earlier this morning he was weaned down to 6 L about 2 by nasal cannula and he was able to maintain a saturation above 90%. His breathing was not labored. He had a congested cough. Unable to bring up much sputum. The cough strength has improved compared to yesterday. He has no signs of any agitation. In fact neurologically seemed to do much more alert and awake and following commands and responding to questions. Later on by early aft ran, the patient became more confused and restless. At that point we implemented this CIWA protocol and the patient was given Ativan which controlled his been eating. The patient is currently on antibiotics. The patient on IV Zosyn. The chest x-ray from today shows showed volume loss in the right lung base along with development of bilateral pleural effusion. Based on all this, I kept on the IV fluids to KVO. I gave the patient dose of Lasix 40 mg IV push and following that the patient producing adequate amount of urine output in the order of 750 mL. He remains in oxygen by nasal cannula at 6 L. Significant leukocytosis. Hemoglobin stable at 8.7. Function is stable. No other si gnificant events otherwise for now. The main concern for now is his concern for pneumonia, respiratory failure and early a.m. His cough and mechanism has improved although it remains quite weak and somewhat ineffective and performing adequate pulmonary toileting. On 09/09/2018, the patient remains quite lethargic yet arousable. Chest x-ray still showing bilateral basal infiltrate and small better pleural effusion. His cough and presented to bring up much of sputum and his cough is weak. He is receiving PT. He is on 40% oxygen nasal cannula and his pulse is now 94%. I think that there is some aspiration related mucous plugs which the patient is unable to cough out. Nevertheless, despite his x-ray findings, he still breathing comfortably on 4 L of oxygen nasal cannula. No chest pain. No hemoptysis. No pleurisy. No agitation. He is breathing is nonlabored. He is receiving IV Zosyn. He is on IV Solu Medrol 40 mg every 8 hours. He is on DuoNeb nebulized treatments around the clock. His ammonia level is less than 9. On 09/10/2018, the patient is doing progress. He seems to be more awake. Is able to cough more effectively. His FiO2 has improved and is down to 40s about 2 by nasal cannula. His breathing is nonlabored. Chest x-ray showing bilateral consolidation lower lobe effusions. No chest pain. No aspiration. Is tolerating his diet is on DuoNeb nebulized treatment [id number] is on IV Solu-Medrol. He is on IV Zosyn. He is able to sit up on a chair. He remains quite weak and lethargic yet interactive and more talkative and communicating compared to yesterday. No focal neurological deficits for now. His urine remains quite cloudy and there is significant amount of sediment. The previously sent culture was contaminant and for that reason we sent another UA and urine culture. UA came back positive for white cells along with few clumps and there was occasional bacteria. There was also some crystals. Cultures are still pending for now. The patient is still on IV Zosyn. No seizure activity. No visual or auditory hallucinations on today's evaluation. On 09/11/2018, the patient is being seen in the medical floor. He is doing wel l. No significant complaints for now. He seems to much more alert and awake. No hallucinations. No delusions. No tremors. No altered mentation. Echocardiogram is to be done today. No significant respiratory distress. Currently he is on 4 L of oxygen nasal cannula. He was diuresed with IV Lasix and the dose of Lasix was given to him overnight. He is on a IV Solu Medrol which will be tapered down to prednisone burst taper. He is tolerating his diet. No nausea. No vomiting. Urine culture is still pending for now. Meanwhile, the patient does not show any signs of septicemia. He remains on IV Zosyn. On 09/12/2018, the patient got transferred back to the intensive care unit. Paolo richards the patient became more short of breath, lethargic, hypoxic, and he was found to have significant abdominal distention. I recommended an NG tube placement. Following that, the patient was sent for a CAT scan of the chest and abdomen and it showed emphysema, bilateral multifocal pneumonia, bilateral pleural effusion right more than left, and no acute intra-abdominal findings. NG tube was removed 9 GERD output was minimal. The patient this morning is feeling much better. His lactic acid levels are improving. He has no chest pain. No minutes cough without any significant sputum production. He was given a dose of Lasix following which produced excellent urine output. He has a Benedict catheter in place. The urine quality has improved symptomatically at this point in time nontender this was very cloudy and purulent. Cultures of been negative. The patient remains on IV Zosyn. Right-sided thoracentesis is being considered for now. Objective - Vital Signs Vital signs: Vital Signs Temp 97.9 F 09/12/18 08:00 Pulse 86 09/12/18 11:13 Resp 20 09/12/18 11:00 BP 87/56 09/12/18 11:00 Pulse Ox 96 09/12/18 11:00 Intake & Output 09/11/18 09/12/18 09/12/18 18:59 06:59 18:59 Intake Total 1200 290 Output Total 500 2155 1150 Balance 700 -2155 -860 Intake: IV 50 Piperacillin-Tazobactam 3 50 .375 gm In Sodium Chloride 0.9% 100 ml @ 25 mls/hr IVPB Q8HR SANDY Rx# :[id number] Sodium Chloride 0.9% 1, 0 000 ml @ 20 mls/hr IV . Q24H SANDY Rx#:[id number] Oral 1200 240 Output: Urine 500 2155 1150 Other: Voiding Method Indwelling Catheter # Voids 1 # Bowel Movements 0 1 - Exam GENERAL EXAM: Much less Lethargic and less short of breath compared to yesterday. Currently on 4 L of oxygen nasal cannula. Awake and alert HEAD: Normocephalic/atraumatic. EYES: Normal reaction of pupils, equal size. Conjunctiva pink, sclera white. NOSE: Clear with pink turbinates. THROAT: No erythema or exudates. NECK: No masses, no JVD, no thyroid enlargement, no adenopathy. CHEST: No chest wall deformity. Symmetrical expansion. LUNGS: Equal air entry with decreased aeration on the left side, and a few scattered rhonchi's on the right, breath sounds continued to be diminished bilaterally more so on the left CVS: Regular rate and rhythm, normal S1 and S2, no gallops, no murmurs, no rubs ABDOMEN: Soft, nontender. No hepatosplenomegaly, normal bowel sounds, no guarding or rigidity. EXTREMITIES: No clubbing, redness, and chronic lower extremity edema, 1+ pitting edema no cyanosis, 2+ pulses and upper and lower extremities. MUSCULOSKELETAL: Muscle strength and tone normal. SPINE: No scoliosis or deformity SKIN: No rashes CENTRAL NERVOUS SYSTEM: Patient is awake and alert and following orders and instructions. He is moving all 4 extremities without any limitation. Cranial nerves are intact. - Labs CBC & Chem 7: 09/12/18 00:34 09/12/18 00:34 Labs: Abnormal Lab Results - Last 24 Hours (Table) 09/11/18 09/11/18 09/11/18 Range/Units 05:44 12:05 16:33 RBC (4.30-5.90) m/uL Hgb (13.0-17.5) gm/dL Hct (39.0-53.0) % MCV (80.0-100.0) fL MCHC (31.0-37.0) g/dL RDW (11.5-15.5) % Plt Count (150-450) k/uL Neutrophils # (1.3-7.7) k/uL Macrocytosis D-Dimer (<0.60) mg/L FEU Sodium (137-145) mmol/L BUN (9-20) mg/dL Glucose (74-99) mg/dL POC Glucose (mg/dL) 206 H 177 H (75-99) mg/dL Hemoglobin A1c 6.4 H (4.0-6.0) % Plasma Lactic Acid Rohit (0.7-2.0) mmol/L Calcium (8.4-10.2) mg/dL Alkaline Phosphatase (38-126) U/L Total Protein (6.3-8.2) g/dL Albumin (3.5-5.0) g/dL Urine Protein (Negative) Urine Blood (Negative) Ur Leukocyte Esterase (Negative) Urine RBC (0-5) /hpf Urine WBC (0-5) /hpf Urine WBC Clumps (None) /hpf Urine Bacteria (None) /hpf 09/11/18 09/12/18 09/12/18 Range/Units 20:52 00:34 00:34 RBC 2.62 L (4.30-5.90) m/uL Hgb 8.6 L (13.0-17.5) gm/dL Hct 29.1 L (39.0-53.0) % MCV 111.2 H (80.0-100.0) fL MCHC 29.5 L (31.0-37.0) g/dL RDW 15.8 H (11.5-15.5) % Plt Count 576 H (150-450) k/uL Neutrophils # 8.0 H (1.3-7.7) k/uL Macrocytosis Marked A D-Dimer (<0.60) mg/L FEU Sodium 134 L (137-145) mmol/L BUN 21 H (9-20) mg/dL Glucose 114 H (74-99) mg/dL POC Glucose (mg/dL) 163 H (75-99) mg/dL Hemoglobin A1c (4.0-6.0) % Plasma Lactic Acid Rohit (0.7-2.0) mmol/L Calcium 8.1 L (8.4-10.2) mg/dL Alkaline Phosphatase 141 H (38-126) U/L Total Protein 5.4 L (6.3-8.2) g/dL Albumin 2.6 L (3.5-5.0) g/dL Urine Protein (Negative) Urine Blood (Negative) Ur Leukocyte Esterase (Negative) Urine RBC (0-5) /hpf Urine WBC (0-5) /hpf Urine WBC Clumps (None) /hpf Urine Bacteria (None) /hpf 09/12/18 09/12/18 09/12/18 Range/Units 00:34 00:50 01:33 RBC (4.30-5.90) m/uL Hgb (13.0-17.5) gm/dL Hct (39.0-53.0) % MCV (80.0-100.0) fL MCHC (31.0-37.0) g/dL RDW (11.5-15.5) % Plt Count (150-450) k/uL Neutrophils # (1.3-7.7) k/uL Macrocytosis D-Dimer 2.85 H (<0.60) mg/L FEU Sodium (137-145) mmol/L BUN (9-20) mg/dL Glucose (74-99) mg/dL POC Glucose (mg/dL) (75-99) mg/dL Hemoglobin A1c (4.0-6.0) % Plasma Lactic Acid Rohit 3.1 H* (0.7-2.0) mmol/L Calcium (8.4-10.2) mg/dL Alkaline Phosphatase (38-126) U/L Total Protein (6.3-8.2) g/dL Albumin (3.5-5.0) g/dL Urine Protein 3+ H (Negative) Urine Blood Moderate H (Negative) Ur Leukocyte Esterase Large H (Negative) Urine RBC 30 H (0-5) /hpf Urine WBC >182 H (0-5) /hpf Urine WBC Clumps Many H (None) /hpf Urine Bacteria Many H (None) /hpf 09/12/18 09/12/18 09/12/18 Range/Units 02:01 02:56 03:51 RBC (4.30-5.90) m/uL Hgb (13.0-17.5) gm/dL Hct (39.0-53.0) % MCV (80.0-100.0) fL MCHC (31.0-37.0) g/dL RDW (11.5-15.5) % Plt Count (150-450) k/uL Neutrophils # (1.3-7.7) k/uL Macrocytosis D-Dimer (<0.60) mg/L FEU Sodium (137-145) mmol/L BUN (9-20) mg/dL Glucose (74-99) mg/dL POC Glucose (mg/dL) 162 H 141 H 122 H (75-99) mg/dL Hemoglobin A1c (4.0-6.0) % Plasma Lactic Acid Rohit (0.7-2.0) mmol/L Calcium (8.4-10.2) mg/dL Alkaline Phosphatase (38-126) U/L Total Protein (6.3-8.2) g/dL Albumin (3.5-5.0) g/dL Urine Protein (Negative) Urine Blood (Negative) Ur Leukocyte Esterase (Negative) Urine RBC (0-5) /hpf Urine WBC (0-5) /hpf Urine WBC Clumps (None) /hpf Urine Bacteria (None) /hpf 09/12/18 09/12/18 Range/Units 05:06 06:58 RBC (4.30-5.90) m/uL Hgb (13.0-17.5) gm/dL Hct (39.0-53.0) % MCV (80.0-100.0) fL MCHC (31.0-37.0) g/dL RDW (11.5-15.5) % Plt Count (150-450) k/uL Neutrophils # (1.3-7.7) k/uL Macrocytosis D-Dimer (<0.60) mg/L FEU Sodium (137-145) mmol/L BUN (9-20) mg/dL Glucose (74-99) mg/dL POC Glucose (mg/dL) 108 H (75-99) mg/dL Hemoglobin A1c (4.0-6.0) % Plasma Lactic Acid Rohit 2.4 H* (0.7-2.0) mmol/L Calcium (8.4-10.2) mg/dL Alkaline Phosphatase (38-126) U/L Total Protein (6.3-8.2) g/dL Albumin (3.5-5.0) g/dL Urine Protein (Negative) Urine Blood (Negative) Ur Leukocyte Esterase (Negative) Urine RBC (0-5) /hpf Urine WBC (0-5) /hpf Urine WBC Clumps (None) /hpf Urine Bacteria (None) /hpf Microbiology - Last 24 Hours (Table) 09/12/18 00:50 Urine Culture - Preliminary Urine,Voided 09/10/18 12:00 Urine Culture - Final Urine,Voided Assessment and Plan Plan: #1. Acute hypoxemic respiratory failure related to suspected aspiration pneumonia, and mucus plugging in the left lung, chest x-ray showed left-sided consolidation and pleural effusion and the possibility of asymmetric pulmonary edema. The patient came into the intensive care unit. Initially was in the 100% nonrebreather facemask. He improved with aggressive pulmonary toileting. The patient continues to improve. He has been weaned down to 4 L of oxygen nasal cannula. Remains on IV Zosyn. After being transferred out of the intensive care unit, the patient became short of breath again and yesterday had some increased abdominal distention. NG tube was inserted and subsequently removed. CAT scan of the chest and abdomen shows bilateral pneumonia, bilateral pleural effusions right more than left, no acute intra-abdominal findings. He is currently much more comfortable on 3 L of oxygen by nasal cannula with a pulse ox of 96%. #2. Acute delirium, related to acute alcohol withdrawal syndrome, recovered and the patient is back to his baseline #3. Alcohol intoxication, falls at home, patient fell and hit his head while walking and tripping. CT head and cervical spine did not reveal any acute intracranial process or acute cervical fractures #4. Electrolyte abnormalities including mild hyponatremia, severe hypokalemia, hypochloremia, improved #5. Chronic anemia, stable hemoglobin #6. Chronic cigarette smoker #7. Chronic alcoholism with underlying malnutrition #8. Previous episode of pneumonia involving the left lower lobe in 2016 #9. Generalized weakness and debility and malnourishment #10 chronic lower extremity edema #11 urinary tract infection with a abnormal UA and the cultures still pending and the patient remains on IV Zosyn. Plan Will proceed with a thoracentesis of the right lung. Continued IV Zosyn. Remove the NG tube. CAT scan of the abdomen was noted. Clinically improved. We'll keep in ICU for now. Advance diet. We'll follow. No signs of any delirium tremens.
[2018-09-12 11:58] LABS: Glucose,Whole Blood 148 mg/dL (75-99)
[2018-09-12] MEDS: SODIUM CHLORIDE 0.9% 1,000 ML IV SCH (12:11)
--- NOTE | 2018-09-12 12:55 | P.GSCN ---
History of Present Illness Consult date: 09/12/18 Reason for Consult: Possible enterovesical fistula Requesting physician: Elina Flaherty History of present illness: This is a 73-year-old white male patient with a history of chronic alcoholism, chronic smoker, chronic anemia, previous pneumonia, and malnutrition related to history of alcoholism. He fell at home, hitting his head, and thus presented to [facility] on 09/06/2018. There was no loss of consciousness. He denied headaches, lightheadedness, dizziness, and vision changes. A CT scan of the head and cervical spine showed moderate cerebral atrophy, no acute intracranial abnormality, and mild spondylosis at C6-C7 without fractures. He is being treated for presumed aspiration pneumonia. A Benedict catheter was placed, and there appeared to be fecal matter within the urine. I am consulted for this reason. Upon questioning, the patient reports a 2 week history of terminal pneumaturia. He denies fecaluria at home. He has an unremarkable urologic history. Review of Systems - Constitutional Denies chills, Denies fever - Respiratory Reports dyspnea - Gastrointestinal Denies nausea, Denies vomiting - Genitourinary Denies dysuria, Denies hematuria Past Medical History Past Medical History: No Reported History Additional Past Medical History / Comment(s): Severe anemia, previous pneumonia involving the left lower lobe for which she was hospitalized at [facility] in 2016, chronic smoker, alcoholism, malnutrition History of Any Multi-Drug Resistant Organisms: None Reported Past Surgical History: No Surgical Hx Reported, Tonsillectomy Additional Past Surgical History / Comment(s): Pt states he has never had surgery. Past Anesthesia/Blood Transfusion Reactions: Unable to Obtain Past Psychological History: No Psychological Hx Reported Additional Psychological History / Comment(s): Pt resides in a home alone. He just got a walker yesterday. 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 He gets to appointments by friends. Friends also help him get food. Smoking Status: Current every day smoker Past Alcohol Use History: Abuse, Daily, Heavy Additional Past Alcohol Use History / Comment(s): Pt started smoking in 1967 and smokes 1-1.5 ppd. He drinks approximately 2-3 shots of liqour a day, he doesn't measure with a shot glass, he just pour liqour into a "rock" glass. Past Drug Use History: None Reported - Past Family History Mother Additional Family Medical History / Comment(s): from cirrhosis Father Additional Family Medical History / Comment(s): from OR Medications and Allergies Home Medications Medication Instructions Recorded Confirmed Type Aspirin EC [Ecotrin] 325 mg PO QID PRN 01/21/18 09/06/18 History Allergies Allergy/AdvReac Type Severity Reaction Status Date / Time lorazepam [From Ativan] AdvReac Severe Unknown Verified 09/12/18 01:14 Surgical - Exam Vital Signs Temp Pulse Resp BP Pulse Ox 97.2 F L 64 19 111/84 99 09/06/18 19:26 09/06/18 19:26 09/06/18 19:09/06/18 19:09/06/18 19:26 - General well developed, no distress - Neck no masses, trachea midline - Abdomen Abdomen: soft, non tender, no guarding, no rigid, no rebound - Genitourinary normal penis with no external lesions, testicles non-tender, other (Moderate scrotal edema is noted) - Rectum Rectum: normal sphincter tone, no masses, other (Prostate is normal in size and consistency) - Psychiatric oriented to time, oriented to person, oriented to place, speech is normal, memory intact Results - Labs 09/12/18 00:34 09/12/18 00:34 Abnormal Lab Results - Last 24 Hours (Table) 09/11/18 09/11/18 09/11/18 Range/Units 05:44 16:33 20:52 RBC (4.30-5.90) m/uL Hgb (13.0-17.5) gm/dL Hct (39.0-53.0) % MCV (80.0-100.0) fL MCHC (31.0-37.0) g/dL RDW (11.5-15.5) % Plt Count (150-450) k/uL Neutrophils # (1.3-7.7) k/uL Macrocytosis D-Dimer (<0.60) mg/L FEU Sodium (137-145) mmol/L BUN (9-20) mg/dL Glucose (74-99) mg/dL POC Glucose (mg/dL) 177 H 163 H (75-99) mg/dL Hemoglobin A1c 6.4 H (4.0-6.0) % Plasma Lactic Acid Rohit (0.7-2.0) mmol/L Calcium (8.4-10.2) mg/dL Alkaline Phosphatase (38-126) U/L Total Protein (6.3-8.2) g/dL Albumin (3.5-5.0) g/dL Urine Protein (Negative) Urine Blood (Negative) Ur Leukocyte Esterase (Negative) Urine RBC (0-5) /hpf Urine WBC (0-5) /hpf Urine WBC Clumps (None) /hpf Urine Bacteria (None) /hpf 09/12/18 09/12/18 09/12/18 Range/Units 00:34 00:34 00:34 RBC 2.62 L (4.30-5.90) m/uL Hgb 8.6 L (13.0-17.5) gm/dL Hct 29.1 L (39.0-53.0) % MCV 111.2 H (80.0-100.0) fL MCHC 29.5 L (31.0-37.0) g/dL RDW 15.8 H (11.5-15.5) % Plt Count 576 H (150-450) k/uL Neutrophils # 8.0 H (1.3-7.7) k/uL Macrocytosis Marked A D-Dimer (<0.60) mg/L FEU Sodium 134 L (137-145) mmol/L BUN 21 H (9-20) mg/dL Glucose 114 H (74-99) mg/dL POC Glucose (mg/dL) (75-99) mg/dL Hemoglobin A1c (4.0-6.0) % Plasma Lactic Acid Rohit 3.1 H* (0.7-2.0) mmol/L Calcium 8.1 L (8.4-10.2) mg/dL Alkaline Phosphatase 141 H (38-126) U/L Total Protein 5.4 L (6.3-8.2) g/dL Albumin 2.6 L (3.5-5.0) g/dL Urine Protein (Negative) Urine Blood (Negative) Ur Leukocyte Esterase (Negative) Urine RBC (0-5) /hpf Urine WBC (0-5) /hpf Urine WBC Clumps (None) /hpf Urine Bacteria (None) /hpf 09/12/18 09/12/1809/12/19 Range/Units 00:50 01:33 02:01 RBC (4.30-5.90) m/uL Hgb (13.0-17.5) gm/dL Hct (39.0-53.0) % MCV (80.0-100.0) fL MCHC (31.0-37.0) g/dL RDW (11.5-15.5) % Plt Count (150-450) k/uL Neutrophils # (1.3-7.7) k/uL Macrocytosis D-Dimer 2.85 H (<0.60) mg/L FEU Sodium (137-145) mmol/L BUN (9-20) mg/dL Glucose (74-99) mg/dL POC Glucose (mg/dL) 162 H (75-99) mg/dL Hemoglobin A1c (4.0-6.0) % Plasma Lactic Acid Rohit (0.7-2.0) mmol/L Calcium (8.4-10.2) mg/dL Alkaline Phosphatase (38-126) U/L Total Protein (6.3-8.2) g/dL Albumin (3.5-5.0) g/dL Urine Protein 3+ H (Negative) Urine Blood Moderate H (Negative) Ur Leukocyte Esterase Large H (Negative) Urine RBC 30 H (0-5) /hpf Urine WBC >182 H (0-5) /hpf Urine WBC Clumps Many H (None) /hpf Urine Bacteria Many H (None) /hpf 09/12/18 09/12/18 09/12/18 Range/Units 02:56 03:51 05:06 RBC (4.30-5.90) m/uL Hgb (13.0-17.5) gm/dL Hct (39.0-53.0) % MCV (80.0-100.0) fL MCHC (31.0-37.0) g/dL RDW (11.5-15.5) % Plt Count (150-450) k/uL Neutrophils # (1.3-7.7) k/uL Macrocytosis D-Dimer (<0.60) mg/L FEU Sodium (137-145) mmol/L BUN (9-20) mg/dL Glucose (74-99) mg/dL POC Glucose (mg/dL) 141 H 122 H (75-99) mg/dL Hemoglobin A1c (4.0-6.0) % Plasma Lactic Acid Rohit 2.4 H* (0.7-2.0) mmol/L Calcium (8.4-10.2) mg/dL Alkaline Phosphatase (38-126) U/L Total Protein (6.3-8.2) g/dL Albumin (3.5-5.0) g/dL Urine Protein (Negative) Urine Blood (Negative) Ur Leukocyte Esterase (Negative) Urine RBC (0-5) /hpf Urine WBC (0-5) /hpf Urine WBC Clumps (None) /hpf Urine Bacteria (None) /hpf 09/12/18 09/12/18 Range/Units 06:58 11:56 RBC (4.30-5.90) m/uL Hgb (13.0-17.5) gm/dL Hct (39.0-53.0) % MCV (80.0-100.0) fL MCHC (31.0-37.0) g/dL RDW (11.5-15.5) % Plt Count (150-450) k/uL Neutrophils # (1.3-7.7) k/uL Macrocytosis D-Dimer (<0.60) mg/L FEU Sodium (137-145) mmol/L BUN (9-20) mg/dL Glucose (74-99) mg/dL POC Glucose (mg/dL) 108 H 148 H (75-99) mg/dL Hemoglobin A1c (4.0-6.0) % Plasma Lactic Acid Rohit (0.7-2.0) mmol/L Calcium (8.4-10.2) mg/dL Alkaline Phosphatase (38-126) U/L Total Protein (6.3-8.2) g/dL Albumin (3.5-5.0) g/dL Urine Protein (Negative) Urine Blood (Negative) Ur Leukocyte Esterase (Negative) Urine RBC (0-5) /hpf Urine WBC (0-5) /hpf Urine WBC Clumps (None) /hpf Urine Bacteria (None) /hpf Microbiology - Last 24 Hours (Table) 09/12/18 00:50 Urine Culture - Preliminary Urine,Voided 09/10/18 12:00 Urine Culture - Final Urine,Voided Diabetes panel 09/11/18 09/12/18 Range/Units 05:44 00:34 Sodium 134 L (137-145) mmol/L Potassium 4.7 (3.5-5.1) mmol/L Chloride 100 (98-107) mmol/L Carbon Dioxide 30 (22-30) mmol/L BUN 21 H (9-20) mg/dL Creatinine 0.83 (0.66-1.25) mg/dL Glucose 114 H (74-99) mg/dL Hemoglobin A1c 6.4 H (4.0-6.0) % Calcium 8.1 L (8.4-10.2) mg/dL AST 41 (17-59) U/L ALT 21 (21-72) U/L Alkaline Phosphatase 141 H (38-126) U/L Total Protein 5.4 L (6.3-8.2) g/dL Albumin 2.6 L (3.5-5.0) g/dL Calcium panel 09/12/18 Range/Units 00:34 Calcium 8.1 L (8.4-10.2) mg/dL Albumin 2.6 L (3.5-5.0) g/dL Pituitary panel 09/12/18 Range/Units 00:34 Sodium 134 L (137-145) mmol/L Potassium 4.7 (3.5-5.1) mmol/L Chloride 100 (98-107) mmol/L Carbon Dioxide 30 (22-30) mmol/L BUN 21 H (9-20) mg/dL Creatinine 0.83 (0.66-1.25) mg/dL Glucose 114 H (74-99) mg/dL Calcium 8.1 L (8.4-10.2) mg/dL Adrenal panel 09/12/18 Range/Units 00:34 Sodium 134 L (137-145) mmol/L Potassium 4.7 (3.5-5.1) mmol/L Chloride 100 (98-107) mmol/L Carbon Dioxide 30 (22-30) mmol/L BUN 21 H (9-20) mg/dL Creatinine 0.83 (0.66-1.25) mg/dL Glucose 114 H (74-99) mg/dL Calcium 8.1 L (8.4-10.2) mg/dL Total Bilirubin 0.2 (0.2-1.3) mg/dL AST 41 (17-59) U/L ALT 21 (21-72) U/L Alkaline Phosphatase 141 H (38-126) U/L Total Protein 5.4 L (6.3-8.2) g/dL Albumin 2.6 L (3.5-5.0) g/dL - Imaging CT scan - abdomen: report reviewed, image reviewed Assessment and Plan (1) Pneumaturia Current Visit: Yes Status: Acute Code(s): R39.89 - OTHER SYMPTOMS AND SIGNS INVOLVING THE GENITOURINARY SYSTEM SNOMED Code(s): 77080908 Plan: The patient has several symptoms and signs suggestive of an enterovesical fistula. These include his history of pneumaturia (along with the fact that considerable air is seen within the bladder on computed tomography scan), the apparent presence of fecal matter in the urine upon Benedict catheter placement, and the fact that a urine culture showed polymicrobial dimas. The Benedict catheter is currently draining clear yellow urine, and he is asymptomatic. The computed tomography scan was performed without contrast. Loops of bowel are seen adjacent to the bladder dome, but this is nonspecific. I have ordered a CT cystogram for further evaluation. In the meantime, the Benedict catheter should remain in place. Time with Patient: Greater than 30
--- NOTE | 2018-09-12 13:55 | PCN ---
PROCEDURE NOTE PREOP DIAGNOSIS: Right-sided pleural effusion. POSTOP DIAGNOSIS: Right sided pleural effusion. Indication Pleural effusion. A time-out was completed verifying correct patient, procedure, site, positioning , and implant (s) or special equipment if applicable. Ultrasound guidance was not used and appropriate fluid pocket was identified and marked. Patient was positioned, prepped and draped in usual sterile fashion. Lidocaine was used to anesthetize the area. A Thoracentesis catheter was introduced into the pleural space and fluid was removed. Blood loss was none. A chest x-ray was ordered to evaluate for pneumothorax. Total Fluid Removed: 1.2 Color of Fluid Turbid dark yellowish to greenish effusion. Fluid was sent for appropriate laboratory tests. Patient tolerated the procedure well and there were no complications. No ultrasound markings obtained. Total amount of fluid removed was 1.2. Turbid dark yellowish to greenish effusion. No bedside complications or bleeding. Chest x-rays to follow. Fluid will be sent for analysis. MMODL / IJN: [id number] /
--- NOTE | 2018-09-12 14:36 | XR ---
EXAMINATION TYPE: XR chest 1V DATE OF EXAM: 09/12/2018 COMPARISON: 09/12/2018, 01/28/2018 INDICATION: Postthoracentesis right pleural effusion TECHNIQUE: Single frontal view of the chest is obtained. FINDINGS: The heart size is normal. The pulmonary vasculature is normal. Mild infiltrate is in the right upper lobe base, the left perihilar region, and adjacent to a small l eft pleural effusion. Previous right pleural effusion appears absent in the frontal projection. Round ed densities remain within the right lower lung field better visualized on the current exam. IMPRESSION: 1. No pneumothorax postthoracentesis. 2. Right upper and left perihilar infiltrates.
--- NOTE | 2018-09-12 14:36 | ECHOF ---
Referral Reason:R/O HF MEASUREMENTS -------- HEIGHT: 180.3 cm WEIGHT: 67.6 kg BP: RVIDd: 3.1 cm (< 3.3) IVSd: 0.9 cm (0.6 - 1.1) LVIDd: 4.9 cm (3.9 - 5.3) LVPWd: 0.9 cm (0.6 - 1.1) IVSs: 0.9 cm LVIDs: 4.3 cm LVPWs: 1.0 cm Ao Diam: 3.3 cm (2.0 - 3.7) AV Cusp: 1.9 cm (1.5 - 2.6) LA Diam: 3.1 cm (2.7 - 3.8) MV EXCURSION: 11.453 mm (> 18.000) MV EF SLOPE: 61 mm/s (70 - 150) EPSS: 1.1 cm MV E Hector: 1.01 m/s MV DecT: 273 ms MV A Hector: 0.83 m/s MV E/A Ratio: 1.22 RAP: 5.00 mmHg RVSP: 28.49 mmHg FINDINGS -------- Sinus rhythm. This was a technically good study. The left ventricular size is normal. Left ventricular wall thickness is normal. There is severe g lobal hypokinesis of LV . Overall left ventricular systolic function is severely impaired with, an EF between 20 - 25 %. Basal inferoseptal LV wall motion is hypokinetic. Basal anteroseptal LV wa ll motion is hypokinetic. Mid anterior LV wall motion is hypokinetic. Mid lateral LV wall motio n is hypokinetic. Mid posterior LV wall motion is hypokinetic. Mid inferior LV wall motion is h ypokinetic. Mid inferoseptal LV wall motion is hypokinetic. Mid anteroseptal LV wall motion is hypokinetic. Apical anterior LV wall motion is hypokinetic. Apical lateral LV wall motion is hy pokinetic. Apical inferior LV wall motion is hypokinetic. Apical septum LV wall motion is hypok inetic. The right ventricle is normal in size. The left atrial size is normal. The right atrial size is normal. Interatrial and interventricular septum intact. The aortic valve is trileaflet and appears structurally normal. The mitral valve leaflets are mildly thickened. Mild mitral regurgitation is present. Mild tricuspid regurgitation present. There is no evidence of pulmonary hypertension. The right v entricular systolic pressure, as measured by Doppler, is 28.49mmHg. There is no pulmonic regurgitation present. The aortic root size is normal. Normal inferior vena cava with normal inspiratory collapse consistent with estimated right atrial pre ssure of 5 mmHg. There is a trivial pericardial effusion present. Large Pleural Effusion. CONCLUSIONS -------- 1. Sinus rhythm. 2. This was a technically good study. 3. The left ventricular size is normal. 4. Left ventricular wall thickness is normal. 5. There is severe global hypokinesis of LV . 6. Overall left ventricular systolic function is severely impaired with, an EF between 20 - 25 %. 7. Basal inferoseptal LV wall motion is hypokinetic. 8. Basal anteroseptal LV wall motion is hypokinetic. 9. The right ventricle is normal in size. 10. The left atrial size is normal. 11. The right atrial size is normal. 12. Interatrial and interventricular septum intact. 13. The aortic valve is trileaflet and appears structurally normal. 14. The mitral valve leaflets are mildly thickened. 15. Mild mitral regurgitation is present. 16. Mild tricuspid regurgitation present. 17. There is no evidence of pulmonary hypertension. 18. The right ventricular systolic pressure, as measured by Doppler, is 28.49mmHg. 19. There is no pulmonic regurgitation present. 20. The aortic root size is normal. 21. Normal inferior vena cava with normal inspiratory collapse consistent with estimated right atrial pressure of 5 mmHg. 22. There is a trivial pericardial effusion present. 23. Large Pleural Effusion. LIGHTING DIRECTOR: María Knight RDCS
[2018-09-12 15:22] LABS: Appearance,BF Clear; Color,BF Yellow; Nucleated Cells, Body Fluid 50 /uL; RBC, Body Fluid 265 /uL
[2018-09-12 15:26] LABS: Mononuclear WBC,Body Fluid 2 %; Polynuclear WBC,Body Fluid 98 %
[2018-09-12 17:01] LABS: Glucose,Whole Blood 154 mg/dL (75-99)
--- NOTE | 2018-09-12 17:13 | CT ---
EXAMINATION TYPE: CT pelvis wo con DATE OF EXAM: 09/12/2018 COMPARISON: None HISTORY: CT cystogram. Stool in urine. Air in urine CT DLP: 477.2 mGycm Automated exposure control for dose reduction was used. FINDINGS: Vascular calcification is within the aorta. Loops of bowel contain multiple scattered diverticuli wit hout evidence of acute diverticulitis. There is some contrast within the distal colon from recent CT chest abdomen pelvis. Contrast was utilized for local the urinary bladder in retrograde fashion through a Benedict catheter pr esent on patient's arrival. Benedict catheter is identified within the urinary bladder. Air is within th e urinary bladder. Contrast is noted within the sigmoid colon. Close examination of the urinary bladder reveals a few areas of possible fistula formation. First is best visualized on the coronal plane images, series 202 image 46 small amount of contrast within the urinary bladder wall. Direct contrast filling of a diverticulum however is not identified. There is c ontrast within the diverticulum extending into the sigmoid colon at this level. The second area is in the superior urinary bladder. Series 202 image 29-30. However, this area does not communicate closel y with the sigmoid colon. The most likely location of fistula formation although communication between the urinary bladder and colon is not documented w con is in the superior posterior urinary bladder adjacent to the sigmoid co ramez. Series 201 image 25, series 202 image 45, series 203 image 59. Given the volume of contrast conc entration within the sigmoid colon, this area is favored is the most likely location. 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 CONTRAST IS DOCUMENTED WITHIN THE COLON.
[2018-09-12 20:48] LABS: Glucose,Whole Blood 205 mg/dL (75-99)
--- NOTE | 2018-09-13 01:23 | P.PN ---
Subjective This is a pleasant 73 years old male with past medical history of anemia, alcohol abuse, cigarette smoker, malnutrition. Patient states that he came to the hospital because he fell on 1919 2 PM, when he felt backwards and he hit his head. After that he was lying on the floor without losing consciousness, no dizziness or syncope prior or after the fall. He thinks that his room made Kiran or his daughter called EMS for him. Patient denies headache. No chest pain or dyspnea. He states that he has chronic cough with phlegm. No chest pain or abdominal pain. No nausea vomiting. No change in urine or bowel habits. No fever. He's not sure about his walking and how was he do one prior to fall. Patient is afebrile, blood pressure 102/73, heart rate 68, respiratory rate 21, is saturating 88% on room air. His CBC showed normal WBC, hemoglobin 9.4. Platelet 439. Electrolytes showing sodium 134, potassium 2.5, went up to 4.9. Creatinine 0.8. Glucose 115. Liver enzymes elevated rate low albumin at 2.5. TSH 3.1. CAT scan of the head showing cerebral atrophy, CT of the cervical spine showing no fracture as per radiologist. Patient has already been started on CIWA protocol. Patient admitted to the intensive care unit upon admission 09/08/2018 Patient remains in the ICU for alcohol withdrawal on CIWA protocol., Yesterday evening patient got hypoxic while he is getting the Ativan. Chest x-ray was obtained which was suspicious for COPD/pneumonia. There was concern for aspiration pneumonia. Pulmonary team was been called to evaluate the patient. Right femoral line was placed, Plata catheter with turbid urine was placed. Urinalysis was suspicious for infection. Patient was started on Zosyn. Urine culture is pending. Currently patient is saturating 97% on 6 L oxygen nasal cannula. Blood pressure is 97/54, his currently on normal saline and 1 25 mL/h. Has expiratory wheezing, Steroids is added. labs showing WBC of 10.4 K, hemoglobin 8.7. Potassium 3.3 and magnesium 2.0. Liver enzymes not elevated. 09/09/2018 Patient still generally weak although a slightly improving. He remains on CIWA protocol. He is breathing quietly however is saturating 97% on 4 L oxygen via nasal cannula. Afebrile. With no leukocytosis. Repeat chest x-ray: Bibasilar infiltrates with a small effusion. Patient remains on Zosyn for possible aspiration pneumonia and urinary tract infection. However urine culture is negative. He got Lasix yesterday. Patient on steroids for possible COPD competent. 09/10/2018 patient is seen today in the ICU. He is more awake and alert and less lethargic. The bed to chair. His breathing is better but still tachypneic. He is on 4 L oxygen today. He is afebrile. Labs from today are unremarkable including CBC and BMP. Sugar is controlled. Magnesium is 2.2. Chest x-ray: Persistent right perihilar and left basilar infiltrates. We are his steroids. He remains on antibiotics. Pulmonary input is appreciated and they are following the patient closely 09/11/2018 Patient is seen today in the general medical floor at [facility]. He was transferred out of the ICU. Patient is sitting bit more awake and alert. He is calm. Not in respiratory distress. However he still generally weak and he has a swelling in his legs and scrotum. He got 1 dose of Lasix. Or coughing, he says he comes occasionally but he says his breathing is improving. Patient with no dyspnea while at rest. We will check echocardiogram for his leg swelling. No signs symptoms of local withdrawal and his mentation is intact today. Vitals are stable. He is saturating 93% on 4 L oxygen via NC. WBC is 10.8 K, which is mildly increased. Cultures so far are negative Hemoglobin 8.0. Repeat UA still s showing infection. We will order renal ultrasound 09/12/2018 pt was send back to the ICU last night for he had stool in his urine with some resp difficulty , repeat CT of chest and abd, did not show fistula in the UB but has moderate right side pleural effusion , pt got thoracocentasis today and abou 1.2 L of greenish yellow fluid was drained , specimen was sent for cutlture, pt remians on zosyn . urologist recommended CT pelvis cystogram: enterovesical fistula, plata catheter draining clear urine for now , we will keep plata catheter. Review of systems CONSTITUTIONAL: No fever, no malaise, no fatigue. HEENT: No recent visual problems or hearing problems. Denied any sore throat. CARDIOVASCULAR: No orthopnea, PND, no palpitations, no syncope. PULMONARY: no hemoptysis. GASTROINTESTINAL: No diarrhea, no nausea, no vomiting, no abdominal pain. Normoactive bowel sounds. NEUROLOGICAL: No headaches, no weakness, no numbness. HEMATOLOGICAL: Denies any bleeding or petechiae. GENITOURINARY: Denies any burning micturition, frequency, or urgency. MUSCULOSKELETAL/RHEUMATOLOGICAL: Denies any joint pain, swelling, or any muscle pain. ENDOCRINE: Denies any polyuria or polydipsia. Medication: Albuterol 0.5-3 mg, Pepcid 20 mg, heparin 5000 units, Motrin 400 mg, NovoLog insulin, Solu-Medrol 40 mg change to prednisone 30 mg , Zofran 4 mg, Zosyn 3.375 mg, thiamine 100 mg Objective - Vital Signs Vital signs: Vital Signs Temp 98.4 F 09/12/18 20:00 Pulse 83 09/12/18 21:00 Resp 22 09/12/18 21:00 BP 105/68 09/12/18 21:00 Pulse Ox 95 09/12/18 21:00 Intake & Output 09/12/18 09/12/18 09/13/18 06:59 18:59 06:59 Intake Total 1155 645 Output Total 2155 3475 445 Balance -2155 -2320 200 Intake: IV 195 45 Piperacillin-Tazobactam 3 175 25 .375 gm In Sodium Chloride 0.9% 100 ml @ 25 mls/hr IVPB Q8HR SANDY Rx# :[id number] Sodium Chloride 0.9% 1, 20 20 000 ml @ 20 mls/hr IV . Q24H SANDY Rx#:[id number] Oral 960 600 Output: Urine 2155 2275 445 Other 1200 Other: Voiding Method Indwelling Catheter Indwelling Catheter # Bowel Movements 1 - Labs CBC & Chem 7: 09/12/18 00:34 09/12/18 00:34 Labs: Abnormal Lab Results - Last 24 Hours (Table) 09/12/18 09/12/18 09/12/18 Range/Units 00:34 00:34 00:34 RBC 2.62 L (4.30-5.90) m/uL Hgb 8.6 L (13.0-17.5) gm/dL Hct 29.1 L (39.0-53.0) % MCV 111.2 H (80.0-100.0) fL MCHC 29.5 L (31.0-37.0) g/dL RDW 15.8 H (11.5-15.5) % Plt Count 576 H (150-450) k/uL Neutrophils # 8.0 H (1.3-7.7) k/uL Macrocytosis Marked A D-Dimer (<0.60) mg/L FEU Sodium 134 L (137-145) mmol/L BUN 21 H (9-20) mg/dL Glucose 114 H (74-99) mg/dL POC Glucose (mg/dL) (75-99) mg/dL Plasma Lactic Acid Rohit 3.1 H* (0.7-2.0) mmol/L Calcium 8.1 L (8.4-10.2) mg/dL Alkaline Phosphatase 141 H (38-126) U/L Total Protein 5.4 L (6.3-8.2) g/dL Albumin 2.6 L (3.5-5.0) g/dL Urine Protein (Negative) Urine Blood (Negative) Ur Leukocyte Esterase (Negative) Urine RBC (0-5) /hpf Urine WBC (0-5) /hpf Urine WBC Clumps (None) /hpf Urine Bacteria (None) /hpf 09/12/18 09/12/18 09/12/18 Range/Units 00:50 01:33 02:01 RBC (4.30-5.90) m/uL Hgb (13.0-17.5) gm/dL Hct (39.0-53.0) % MCV (80.0-100.0) fL MCHC (31.0-37.0) g/dL RDW (11.5-15.5) % Plt Count (150-450) k/uL Neutrophils # (1.3-7.7) k/uL Macrocytosis D-Dimer 2.85 H (<0.60) mg/L FEU Sodium (137-145) mmol/L BUN (9-20) mg/dL Glucose (74-99) mg/dL POC Glucose (mg/dL) 162 H (75-99) mg/dL Plasma Lactic Acid Rohit (0.7-2.0) mmol/L Calcium (8.4-10.2) mg/dL Alkaline Phosphatase (38-126) U/L Total Protein (6.3-8.2) g/dL Albumin (3.5-5.0) g/dL Urine Protein 3+ H (Negative) Urine Blood Moderate H (Negative) Ur Leukocyte Esterase Large H (Negative) Urine RBC 30 H (0-5) /hpf Urine WBC >182 H (0-5) /hpf Urine WBC Clumps Many H (None) /hpf Urine Bacteria Many H (None) /hpf 09/12/18 09/12/18 09/12/18 Range/Units 02:56 03:51 05:06 RBC (4.30-5.90) m/uL Hgb (13.0-17.5) gm/dL Hct (39.0-53.0) % MCV (80.0-100.0) fL MCHC (31.0-37.0) g/dL RDW (11.5-15.5) % Plt Count (150-450) k/uL Neutrophils # (1.3-7.7) k/uL Macrocytosis D-Dimer (<0.60) mg/L FEU Sodium (137-145) mmol/L BUN (9-20) mg/dL Glucose (74-99) mg/dL POC Glucose (mg/dL) 141 H 122 H (75-99) mg/dL Plasma Lactic Acid Rohit 2.4 H* (0.7-2.0) mmol/L Calcium (8.4-10.2) mg/dL Alkaline Phosphatase (38-126) U/L Total Protein (6.3-8.2) g/dL Albumin (3.5-5.0) g/dL Urine Protein (Negative) Urine Blood (Negative) Ur Leukocyte Esterase (Negative) Urine RBC (0-5) /hpf Urine WBC (0-5) /hpf Urine WBC Clumps (None) /hpf Urine Bacteria (None) /hpf 09/12/18 09/12/18 09/12/18 Range/Units 06:58 11:56 16:59 RBC (4.30-5.90) m/uL Hgb (13.0-17.5) gm/dL Hct (39.0-53.0) % MCV (80.0-100.0) fL MCHC (31.0-37.0) g/dL RDW (11.5-15.5) % Plt Count (150-450) k/uL Neutrophils # (1.3-7.7) k/uL Macrocytosis D-Dimer (<0.60) mg/L FEU Sodium (137-145) mmol/L BUN (9-20) mg/dL Glucose (74-99) mg/dL POC Glucose (mg/dL) 108 H 148 H 154 H (75-99) mg/dL Plasma Lactic Acid Rohit (0.7-2.0) mmol/L Calcium (8.4-10.2) mg/dL Alkaline Phosphatase (38-126) U/L Total Protein (6.3-8.2) g/dL Albumin (3.5-5.0) g/dL Urine Protein (Negative) Urine Blood (Negative) Ur Leukocyte Esterase (Negative) Urine RBC (0-5) /hpf Urine WBC (0-5) /hpf Urine WBC Clumps (None) /hpf Urine Bacteria (None) /hpf 09/12/18 Range/Units 20:46 RBC (4.30-5.90) m/uL Hgb (13.0-17.5) gm/dL Hct (39.0-53.0) % MCV (80.0-100.0) fL MCHC (31.0-37.0) g/dL RDW (11.5-15.5) % Plt Count (150-450) k/uL Neutrophils # (1.3-7.7) k/uL Macrocytosis D-Dimer (<0.60) mg/L FEU Sodium (137-145) mmol/L BUN (9-20) mg/dL Glucose (74-99) mg/dL POC Glucose (mg/dL) 205 H (75-99) mg/dL Plasma Lactic Acid Rohit (0.7-2.0) mmol/L Calcium (8.4-10.2) mg/dL Alkaline Phosphatase (38-126) U/L Total Protein (6.3-8.2) g/dL Albumin (3.5-5.0) g/dL Urine Protein (Negative) Urine Blood (Negative) Ur Leukocyte Esterase (Negative) Urine RBC (0-5) /hpf Urine WBC (0-5) /hpf Urine WBC Clumps (None) /hpf Urine Bacteria (None) /hpf Microbiology - Last 24 Hours (Table) 09/12/18 00:50 Urine Culture - Preliminary Urine,Voided 09/10/18 12:00 Urine Culture - Final Urine,Voided Assessment and Plan Assessment: enterovesical fistula Fall Alcohol withdrawal, with delirium tremens Acute hypoxic respiratory failure Possible aspiration pneumonia Acute COPD exacerbation Dehydration and hypovolemia. Hypokalemia Alcohol abuse Nicotine dependence Anemia calories-protein malnutrition Plan: This is a pleasant 73 years old male who presents because of alcohol withdrawal and fall found to have COPD exacerbation/pneumonia, UTI. Pulmonary/critical care team input is appreciated. Continue with antibiotics and IV fluids., . Continue with CIWA protocol. Continue with vitamins. Continue with gentle hydration. Replace electrolytes and monitors them. follow-up culture results Labs and medication were reviewed.. Continue same treatment. Continue with symptomatic treatment. Resume home medication. Monitor lytes and vitals. DVT and GI prophylaxis. Further recommendations of the clinical course of the patient DVT prophylaxis: Subcutaneous heparin GI Prophylaxis: Pepcid PT/OT: Pending Prognosis is guarded
[2018-09-13 02:17] LABS: Glucose,Whole Blood 145 mg/dL (75-99)
[2018-09-13] MEDS: INSULIN ASPART (NovoLOG) 100 UNIT/ML VIAL SQ SCH ×5 (02:19→21:22)
[2018-09-13 04:52] LABS: Anisocytosis Slight; Basophils % (A) 0 %; Eosinophils % (A) 1 %; HCT 23.2 % (39.0-53.0); HGB 7.3 gm/dL (13.0-17.5); Lymphocytes # (A) 0.7 k/uL (1.0-4.8); Lymphocytes % (A) 9 %; MCH 34.1 pg (25.0-35.0); MCHC 31.4 g/dL (31.0-37.0); MCV 108.7 fL (80.0-100.0); Mean Platelet Volume 7.7; Monocytes # (A) 0.4 k/uL (0-1.0); Monocytes % (A) 5 %; Neutrophils # (A) 7.1 k/uL (1.3-7.7); Neutrophils % (A) 85 %; Platelet Count 413 k/uL (150-450); RBC 2.13 m/uL (4.30-5.90); RDW 16.5 % (11.5-15.5); WBC 8.3 k/uL (3.8-10.6)
[2018-09-13 04:53] LABS: Macrocytosis Marked
[2018-09-13 05:13] LABS: ALT 30 U/L (21-72); AST 25 U/L (17-59); African American GFR (CKD) >90 (>60 ml/min/1.73 sqM); Albumin 2.1 g/dL (3.5-5.0); Alkaline Phosphatase 96 U/L (38-126); Anion Gap -1 mmol/L; Blood Urea Nitrogen 16 mg/dL (9-20); Calcium 7.9 mg/dL (8.4-10.2); Carbon Dioxide 38 mmol/L (22-30); Chloride 100 mmol/L (98-107); Glucose 72 mg/dL (74-99); Magnesium 2.3 mg/dL (1.6-2.3); Phosphorus 3.7 mg/dL (2.5-4.5); Potassium 3.8 mmol/L (3.5-5.1); Sodium 137 mmol/L (137-145); Total Bilirubin 0.2 mg/dL (0.2-1.3); Total Protein 4.5 g/dL (6.3-8.2)
[2018-09-13] MEDS: IPRATROPIUM-ALBUTEROL 3 ML NEB INHALATION PRN ×2 (06:50→15:47)
[2018-09-13 07:00] LABS: Glucose,Whole Blood 71 mg/dL (75-99)
[2018-09-13] MEDS ORDERED: POTASSIUM CHLORIDE ER 20 MEQ TAB.ER PO SCH (07:00)
[2018-09-13] MEDS: predniSONE 10 MG TAB PO SCH (08:12)
[2018-09-13] MEDS: FAMOTIDINE 20 MG TAB PO SCH ×2 (08:12→21:21)
[2018-09-13] MEDS: THIAMINE 100 MG TAB PO SCH ×2 (08:12→17:28)
[2018-09-13] MEDS: MULTIVITAMINS, THERA 1 EACH TAB PO SCH (08:15)
[2018-09-13] MEDS: SODIUM CHLORIDE 0.9% 1,000 ML IV SCH (08:24)
--- NOTE | 2018-09-13 08:26 | XR ---
EXAMINATION TYPE: XR chest 1V portable DATE OF EXAM: 09/13/2018 COMPARISON: 09/12/2018 INDICATION: Pleural effusions postthoracentesis TECHNIQUE: Single frontal view of the chest is obtained. FINDINGS: The heart size is normal. The pulmonary vasculature is somewhat prominent. There is mild infiltrate to the left lung which is improving. Small left pleural effusion is stable. No pneumothorax is evident. Chronic nodularity is within the right lower lung field IMPRESSION: 1. Improving left lung infiltrate. 2. Stable small left pleural effusion. 3. No new thorax
[2018-09-13] MEDS: PIPERACILLIN-TAZOBACTAM 3.375 GM in SODIUM CHLORIDE 0.9% 100 ML IVPB SCH ×3 (08:27→23:39)
[2018-09-13] MEDS: HEPARIN SODIUM,PORCINE 5,000 UNIT/ML 1 ML VIAL SQ SCH ×2 (08:32→21:22)
--- NOTE | 2018-09-13 11:05 | P.GSCN ---
History of Present Illness Consult date: 09/13/18 Reason for Consult: Diverticulitis with colovesical fistula History of present illness: This is a 73-year-old male. Patient underwent CAT scan yesterday. He is found have a colovesical fistula related to diverticulitis. Patient states that he had a colonoscopy a year ago which she claims was normal. Patient denies a significant abdominal pain. Past Medical History Past Medical History: No Reported History Additional Past Medical History / Comment(s): Severe anemia, previous pneumonia involving the left lower lobe for which she was hospitalized at [facility] in 2016, chronic smoker, alcoholism, malnutrition History of Any Multi-Drug Resistant Organisms: None Reported Past Surgical History: No Surgical Hx Reported, Tonsillectomy Additional Past Surgical History / Comment(s): Pt states he has never had surgery. Past Anesthesia/Blood Transfusion Reactions: Unable to Obtain Past Psychological History: No Psychological Hx Reported Additional Psychological History / Comment(s): Pt resides in a home alone. He just got a walker yesterday. He does not have a [employer] driver's license. He gets to appointments by friends. Friends also help him get food. Smoking Status: Current every day smoker Past Alcohol Use History: Abuse, Daily, Heavy Additional Past Alcohol Use History / Comment(s): Pt started smoking in 1967 and smokes 1-1.5 ppd. He drinks approximately 2-3 shots of liqour a day, he doesn't measure with a shot glass, he just pour liqour into a "rock" glass. Past Drug Use History: None Reported - Past Family History Mother Additional Family Medical History / Comment(s): from cirrhosis Father Additional Family Medical History / Comment(s): from [place] Medications and Allergies Home Medications Medication Instructions Recorded Confirmed Type Aspirin EC [Ecotrin] 325 mg PO QID PRN 01/21/18 09/06/18 History Allergies Allergy/AdvReac Type Severity Reaction Status Date / Time lorazepam [From Ativan] AdvReac Severe Unknown Verified 09/12/18 01:14 Surgical - Exam Vital Signs Temp Pulse Resp BP Pulse Ox 97.2 F L 64 19 111/84 99 09/06/18 19:26 09/06/18 19:26 09/06/18 19:26 09/06/18 19:26 09/06/18 19:26 - General cachectic, chronically ill - Eyes PERRL - ENT normal pinna - Neck no masses - Respiratory normal expansion - Cardiovascular Rhythm: regular - Abdomen Minimal left lower quadrant pain Abdomen: soft, non tender Results - Labs 09/13/18 04:40 09/13/18 04:40 Abnormal Lab Results - Last 24 Hours (Table) 09/12/18 09/12/18 09/12/18 Range/Units 11:56 16:59 20:46 RBC (4.30-5.90) m/uL Hgb (13.0-17.5) gm/dL Hct (39.0-53.0) % MCV (80.0-100.0) fL RDW (11.5-15.5) % Lymphocytes # (1.0-4.8) k/uL Macrocytosis Carbon Dioxide (22-30) mmol/L Glucose (74-99) mg/dL POC Glucose (mg/dL) 148 H 154 H 205 H (75-99) mg/dL Calcium (8.4-10.2) mg/dL Total Protein (6.3-8.2) g/dL Albumin (3.5-5.0) g/dL 09/13/18 09/13/18 09/13/18 Range/Units 02:16 04:40 04:40 RBC 2.13 L (4.30-5.90) m/uL Hgb 7.3 L (13.0-17.5) gm/dL Hct 23.2 L (39.0-53.0) % MCV 108.7 H (80.0-100.0) fL RDW 16.5 H (11.5-15.5) % Lymphocytes # 0.7 L (1.0-4.8) k/uL Macrocytosis Marked A Carbon Dioxide 38 H (22-30) mmol/L Glucose 72 L (74-99) mg/dL POC Glucose (mg/dL) 145 H (75-99) mg/dL Calcium 7.9 L (8.4-10.2) mg/dL Total Protein 4.5 L (6.3-8.2) g/dL Albumin 2.1 L (3.5-5.0) g/dL 09/13/18 Range/Units 06:58 RBC (4.30-5.90) m/uL Hgb (13.0-17.5) gm/dL Hct (39.0-53.0) % MCV (80.0-100.0) fL RDW (11.5-15.5) % Lymphocytes # (1.0-4.8) k/uL Macrocytosis Carbon Dioxide (22-30) mmol/L Glucose (74-99) mg/dL POC Glucose (mg/dL) 71 L (75-99) mg/dL Calcium (8.4-10.2) mg/dL Total Protein (6.3-8.2) g/dL Albumin (3.5-5.0) g/dL Microbiology - Last 24 Hours (Table) 09/12/18 00:50 Urine Culture - Preliminary Urine,Voided Group D Enterococcus 09/12/18 13:26 Gram Stain - Preliminary Pleural Fluid Body Fluid Culture - Preliminary Diabetes panel 09/13/18 Range/Units 04:40 Sodium 137 (137-145) mmol/L Potassium 3.8 (3.5-5.1) mmol/L Chloride 100 (98-107) mmol/L Carbon Dioxide 38 H (22-30) mmol/L BUN 16 (9-20) mg/dL Creatinine 0.71 (0.66-1.25) mg/dL Glucose 72 L (74-99) mg/dL Calcium 7.9 L (8.4-10.2) mg/dL AST 25 (17-59) U/L ALT 30 (21-72) U/L Alkaline Phosphatase 96 (38-126) U/L Total Protein 4.5 L (6.3-8.2) g/dL Albumin 2.1 L (3.5-5.0) g/dL Calcium panel 09/13/18 Range/Units 04:40 Calcium 7.9 L (8.4-10.2) mg/dL Phosphorus 3.7 (2.5-4.5) mg/dL Albumin 2.1 L (3.5-5.0) g/dL Pituitary panel 09/13/18 Range/Units 04:40 Sodium 137 (137-145) mmol/L Potassium 3.8 (3.5-5.1) mmol/L Chloride 100 (98-107) mmol/L Carbon Dioxide 38 H (22-30) mmol/L BUN 16 (9-20) mg/dL Creatinine 0.71 (0.66-1.25) mg/dL Glucose 72 L (74-99) mg/dL Calcium 7.9 L (8.4-10.2) mg/dL Adrenal panel 09/13/18 Range/Units 04:40 Sodium 137 (137-145) mmol/L Potassium 3.8 (3.5-5.1) mmol/L Chloride 100 (98-107) mmol/L Carbon Dioxide 38 H (22-30) mmol/L BUN 16 (9-20) mg/dL Creatinine 0.71 (0.66-1.25) mg/dL Glucose 72 L (74-99) mg/dL Calcium 7.9 L (8.4-10.2) mg/dL Total Bilirubin 0.2 (0.2-1.3) mg/dL AST 25 (17-59) U/L ALT 30 (21-72) U/L Alkaline Phosphatase 96 (38-126) U/L Total Protein 4.5 L (6.3-8.2) g/dL Albumin 2.1 L (3.5-5.0) g/dL Assessment and Plan Assessment: Diverticulitis with colovesical fistula. Patient will undergo colonoscopy to evaluate his colon. We will follow with you.
[2018-09-13 11:53] LABS: Glucose,Whole Blood 103 mg/dL (75-99)
--- NOTE | 2018-09-13 12:53 | P.PN ---
Progress Note - Text Progress Note Date: 09/13/18 Mr. Rosas remains afebrile and asymptomatic. His Benedict catheter continues to drain clear yellow urine. The CT cystogram shows evidence of a colovesical fistula, for which Dr. Francis intends to perform colonoscopy for further evaluation. I would suggest that the Benedict catheter remain in place, and I will continue to follow with you.
--- NOTE | 2018-09-13 14:11 | P.PN ---
Subjective Progress Note Date: 09/13/18 This is a 73-year-old white male patient with history of chronic alcoholism, ch ronic smoker, chronic anemia, previous pneumonia, malnutrition related to history of alcoholism, was in to the hospital on 09/06/2018 for evaluation of falls at home. Patient was brought in by an ambulance, and reportedly he tripped while walking and fell backwards hitting back of his head on the fridge. There was no loss of consciousness at the time of the incident, and patient's daughter called the ambulance with the patient for evaluation. The patient was drinking prior to the incident. He denies any headaches, lightheadedness, dizziness, denied any vision changes, no nausea vomiting or diarrhea. Not on any blood thinners. CT of the head and cervical spine was completed and showed moderate cerebral atrophy, no acute intracranial abnormality and mild spondylosis at C6 and 7 no acute fractures were seen. He was kept overnight in the emergency department, he was started on CIWA protocol for acute alcohol withdrawal syndrome. Lab work was completed in the emergency department and showed a white blood cell count of 6.1, hemoglobin of 9.4, sodium was 134, potassium is 2.5 and this was replaced per protocol, chloride was 94, CO2 is 31, BUN was 13 creatinine was 0.87, AST is 31, ALT was 20, alkaline phosphatase was 147, proBNP was 525. Patient was noted to have decreased oxygenation, decreased sats, after Ativan was given proceed with protocol. His decreased air movement auscultated on the left side, he was placed on 100% nonrebreather and his pulse ox is 88-89%, chest x-ray was obtained, showing stable left-sided consolidation and pleural effusion, hemodynamically related to aspiration pneumonia and asymmetric pulmonary edema. She was started on breathing treatments, antibiotics in the form of Zosyn, and is admitted to the intensive care unit for closer monitoring. She was given IV hydration in the emergency department with a liter bolus, and maintenance IV is 0.9 normal saline at a rate of 50 ML per hour. During my evaluation patient is quite lethargic, but opens eyes to verbal stimuli, and he is quite confused, he is only oriented to person, and he thinks he is in [place], he remains on 100% nonrebreather his current pulse ox is 90-92%, hemodynamically stable, blood pressure is 112/86, afebrile. on today's evaluation of 09/08/2018, the patient was seen quite awake and alert this morning. There has been improvement in the mental status since yesterday. Overnight, the patient was brought into the intensive care because of an aspiration. Significant diminished breath sounds in the left lung base along with some volume loss in the chest x-ray. He was placed on on the percent nonrebreather facemask. He was given aggressive chest PT. He was kept nothing by mouth. Overnight he improved and earlier this morning he was weaned down to 6 L about 2 by nasal cannula and he was able to maintain a saturation above 90%. His breathing was not labored. He had a congested cough. Unable to bring up much sputum. The cough strength has improved compared to yesterday. He has no signs of any agitation. In fact neurologically seemed to do much more alert and awake and following commands and responding to questions. Later on by early aft ran, the patient became more confused and restless. At that point we implemented this CIWA protocol and the patient was given Ativan which controlled his been eating. The patient is currently on antibiotics. The patient on IV Zosyn. The chest x-ray from today shows showed volume loss in the right lung base along with development of bilateral pleural effusion. Based on all this, I kept on the IV fluids to KVO. I gave the patient dose of Lasix 40 mg IV push and following that the patient producing adequate amount of urine output in the order of 750 mL. He remains in oxygen by nasal cannula at 6 L. Significant leukocytosis. Hemoglobin stable at 8.7. Function is stable. No other si gnificant events otherwise for now. The main concern for now is his concern for pneumonia, respiratory failure and early a.m. His cough and mechanism has improved although it remains quite weak and somewhat ineffective and performing adequate pulmonary toileting. On 09/09/2018, the patient remains quite lethargic yet arousable. Chest x-ray still showing bilateral basal infiltrate and small better pleural effusion. His cough and presented to bring up much of sputum and his cough is weak. He is receiving PT. He is on 40% oxygen nasal cannula and his pulse is now 94%. I think that there is some aspiration related mucous plugs which the patient is unable to cough out. Nevertheless, despite his x-ray findings, he still breathing comfortably on 4 L of oxygen nasal cannula. No chest pain. No hemoptysis. No pleurisy. No agitation. He is breathing is nonlabored. He is receiving IV Zosyn. He is on IV Solu Medrol 40 mg every 8 hours. He is on DuoNeb nebulized treatments around the clock. His ammonia level is less than 9. On 09/10/2018, the patient is doing progress. He seems to be more awake. Is able to cough more effectively. His FiO2 has improved and is down to 40s about 2 by nasal cannula. His breathing is nonlabored. Chest x-ray showing bilateral consolidation lower lobe effusions. No chest pain. No aspiration. Is tolerating his diet is on DuoNeb nebulized treatment [id number] is on IV Solu-Medrol. He is on IV Zosyn. He is able to sit up on a chair. He remains quite weak and lethargic yet interactive and more talkative and communicating compared to yesterday. No focal neurological deficits for now. His urine remains quite cloudy and there is significant amount of sediment. The previously sent culture was contaminant and for that reason we sent another UA and urine culture. UA came back positive for white cells along with few clumps and there was occasional bacteria. There was also some crystals. Cultures are still pending for now. The patient is still on IV Zosyn. No seizure activity. No visual or auditory hallucinations on today's evaluation. On 09/11/2018, the patient is being seen in the medical floor. He is doing wel l. No significant complaints for now. He seems to much more alert and awake. No hallucinations. No delusions. No tremors. No altered mentation. Echocardiogram is to be done today. No significant respiratory distress. Currently he is on 4 L of oxygen nasal cannula. He was diuresed with IV Lasix and the dose of Lasix was given to him overnight. He is on a IV Solu Medrol which will be tapered down to prednisone burst taper. He is tolerating his diet. No nausea. No vomiting. Urine culture is still pending for now. Meanwhile, the patient does not show any signs of septicemia. He remains on IV Zosyn. On 09/12/2018, the patient got transferred back to the intensive care unit. Paolo richards the patient became more short of breath, lethargic, hypoxic, and he was found to have significant abdominal distention. I recommended an NG tube placement. Following that, the patient was sent for a CAT scan of the chest and abdomen and it showed emphysema, bilateral multifocal pneumonia, bilateral pleural effusion right more than left, and no acute intra-abdominal findings. NG tube was removed 9 GERD output was minimal. The patient this morning is feeling much better. His lactic acid levels are improving. He has no chest pain. No minutes cough without any significant sputum production. He was given a dose of Lasix following which produced excellent urine output. He has a Benedict catheter in place. The urine quality has improved symptomatically at this point in time nontender this was very cloudy and purulent. Cultures of been negative. The patient remains on IV Zosyn. Right-sided thoracentesis is being considered for now. On 09/13/2018, the patient is doing well. No respiratory distress. I performed a thoracentesis on him yesterday and total of 1 L of pleural fluid was aspirated from the right lung. Chest x-ray from today shows a small amount of effusion the left. He is swallowing well. No aspiration or sputum production. No respiratory distress. He is on 40s about 2 by nasal cannula. Meanwhile, the Benedict cath is in place. The urine output for now is quite clean. 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 This explains the constant abnormalities in the urine analysis is worsening in this patient. He remains on IV Zosyn. Gen. surgery has been consulted regarding a fistulous connection between the bladder and the sigmoid colon. No abdominal pain. No signs of any septicemia for the time being. Benedict catheter will be kept in place. Objective - Vital Signs Vital signs: Vital Signs Temp 98.1 F 09/13/18 04:00 Pulse 66 09/13/18 07:00 Resp 28 H 09/13/18 06:00 BP 109/72 09/13/18 06:00 Pulse Ox 98 09/13/18 06:00 Intake & Output 09/12/18 09/13/18 09/13/18 18:59 06:59 18:59 Intake Total 1155 1035 10 Output Total 3475 1605 1030 Balance -2324 -570 -1020 Weight 76.5 kg Intake: IV 195 195 10 Piperacillin-Tazobactam 3 175 125 .375 gm In Sodium Chloride 0.9% 100 ml @ 25 mls/hr IVPB Q8HR [facility] Rx# :[id number] Sodium Chloride 0.9% 1, 20 70 10 000 ml @ 20 mls/hr IV . Q24H [facility] Rx#:[id number] Oral 960 840 Output: Urine 2275 1605 1030 Other 1200 Other: Voiding Method Indwelling Catheter Indwelling Catheter Indwelling Catheter - Exam GENERAL EXAM: Much less Lethargic and less short of breath compared to yesterday. Currently on 4 L of oxygen nasal cannula. Awake and alert HEAD: Normocephalic/atraumatic. EYES: Normal reaction of pupils, equal size. Conjunctiva pink, sclera white. NOSE: Clear with pink turbinates. THROAT: No erythema or exudates. NECK: No masses, no JVD, no thyroid enlargement, no adenopathy. CHEST: No chest wall deformity. Symmetrical expansion. LUNGS: Equal air entry with decreased aeration on the left side, and a few scattered rhonchi's on the right, breath sounds continued to be diminished bilaterally , yet improved following the thoracentesis. There is improvement and entry in the right lower lobe. CVS: Regular rate and rhythm, normal S1 and S2, no gallops, no murmurs, no rubs ABDOMEN: Soft, nontender. No hepatosplenomegaly, normal bowel sounds, no g uarding or rigidity. EXTREMITIES: No clubbing, redness, and chronic lower extremity edema, 1+ pitting edema no cyanosis, 2+ pulses and upper and lower extremities. MUSCULOSKELETAL: Muscle strength and tone normal. SPINE: No scoliosis or deformity SKIN: No rashes CENTRAL NERVOUS SYSTEM: Patient is awake and alert and following orders and instructions. He is moving all 4 extremities without any limitation. Cranial nerves are intact. - Labs CBC & Chem 7: 09/13/18 04:40 09/13/18 04:40 Labs: Abnormal Lab Results - Last 24 Hours (Table) 09/12/18 09/12/18 09/13/18 Range/Units 16:59 20:46 02:16 RBC (4.30-5.90) m/uL Hgb (13.0-17.5) gm/dL Hct (39.0-53.0) % MCV (80.0-100.0) fL RDW (11.5-15.5) % Lymphocytes # (1.0-4.8) k/uL Macrocytosis Carbon Dioxide (22-30) mmol/L Glucose (74-99) mg/dL POC Glucose (mg/dL) 154 H 205 H 145 H (75-99) mg/dL Calcium (8.4-10.2) mg/dL Total Protein (6.3-8.2) g/dL Albumin (3.5-5.0) g/dL 09/13/18 09/13/18 09/13/18 Range/Units 04:40 04:40 06:58 RBC 2.13 L (4.30-5.90) m/uL Hgb 7.3 L (13.0-17.5) gm/dL Hct 23.2 L (39.0-53.0) % MCV 108.7 H (80.0-100.0) fL RDW 16.5 H (11.5-15.5) % Lymphocytes # 0.7 L (1.0-4.8) k/uL Macrocytosis Marked A Carbon Dioxide 38 H (22-30) mmol/L Glucose 72 L (74-99) mg/dL POC Glucose (mg/dL) 71 L (75-99) mg/dL Calcium 7.9 L (8.4-10.2) mg/dL Total Protein 4.5 L (6.3-8.2) g/dL Albumin 2.1 L (3.5-5.0) g/dL 09/13/18 Range/Units 11:49 RBC (4.30-5.90) m/uL Hgb (13.0-17.5) gm/dL Hct (39.0-53.0) % MCV (80.0-100.0) fL RDW (11.5-15.5) % Lymphocytes # (1.0-4.8) k/uL Macrocytosis Carbon Dioxide (22-30) mmol/L Glucose (74-99) mg/dL POC Glucose (mg/dL) 103 H (75-99) mg/dL Calcium (8.4-10.2) mg/dL Total Protein (6.3-8.2) g/dL Albumin (3.5-5.0) g/dL Microbiology - Last 24 Hours (Table) 09/12/18 00:50 Urine Culture - Preliminary Urine,Voided Group D Enterococcus 09/12/18 13:26 Gram Stain - Preliminary Pleural Fluid Body Fluid Culture - Preliminary Assessment and Plan Plan: #1. Acute hypoxemic respiratory failure related to suspected aspiration pneumonia, and mucus plugging . The patient has recovered and the patient was treated with antibiotics and ultimately required a thoracentesis of the right lung with evacuation of a right-sided pleural effusion. His oxidation is improved considerably. Currently is on 2 L of oxygen nasal cannula. #2. Acute delirium, related to acute alcohol withdrawal syndrome, recovered and the patient is back to his baseline #3. Alcohol intoxication, falls at home, patient fell and hit his head while walking and tripping. CT head and cervical spine did not reveal any acute intracranial process or acute cervical fractures #4. 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 General surgeries of the case. Urology is also on the case. #5. Chronic anemia, stable hemoglobin #6. Chronic cigarette smoker #7. Chronic alcoholism with underlying malnutrition #8. Previous episode of pneumonia involving the left lower lobe in 2016 #9. Generalized weakness and debility and malnourishment #10 chronic lower extremity edema #11 Electrolyte abnormalities including mild hyponatremia, severe hypokalemia, hypochloremia, improved Plan Continued IV Zosyn. Remove the NG tube. CAT scan of the abdomen/pelvis was noted and the patient has a fistula and the patient will need a colonoscopy to later stage with possible surgical intervention regarding the vesicle colonic fistula. Keep the Benedict catheter in place for now. Pulmonary status is stable. Thoracentesis was done. The patient is down to 2 L of oxygen by nasal cannula. No signs of any delirium tremens.. Clinically improved. We'll keep in ICU for now. Advance diet. We'll follow. The patient will be released out of the intensive care unit to be followed up on the floor with pulmonary, urology and general surgery.
--- NOTE | 2018-09-13 15:26 | P.PN ---
Subjective This is a pleasant 73 years old male with past medical history of anemia, alcohol abuse, cigarette smoker, malnutrition. Patient states that he came to the hospital because he fell on 1919 2 PM, when he felt backwards and he hit his head. After that he was lying on the floor without losing consciousness, no dizziness or syncope prior or after the fall. He thinks that his room made Kiran or his daughter called EMS for him. Patient denies headache. No chest pain or dyspnea. He states that he has chronic cough with phlegm. No chest pain or abdominal pain. No nausea vomiting. No change in urine or bowel habits. No fever. He's not sure about his walking and how was he do one prior to fall. Patient is afebrile, blood pressure 102/73, heart rate 68, respiratory rate 21, is saturating 88% on room air. His CBC showed normal WBC, hemoglobin 9.4. Platelet 439. Electrolytes showing sodium 134, potassium 2.5, went up to 4.9. Creatinine 0.8. Glucose 115. Liver enzymes elevated rate low albumin at 2.5. TSH 3.1. CAT scan of the head showing cerebral atrophy, CT of the cervical spine showing no fracture as per radiologist. Patient has already been started on CIWA protocol. Patient admitted to the intensive care unit upon admission 09/08/2018 Patient remains in the ICU for alcohol withdrawal on CIWA protocol., Yesterday evening patient got hypoxic while he is getting the Ativan. Chest x-ray was obtained which was suspicious for COPD/pneumonia. There was concern for aspiration pneumonia. Pulmonary team was been called to evaluate the patient. Right femoral line was placed, Plata catheter with turbid urine was placed. Urinalysis was suspicious for infection. Patient was started on Zosyn. Urine culture is pending. Currently patient is saturating 97% on 6 L oxygen nasal cannula. Blood pressure is 97/54, his currently on normal saline and 1 25 mL/h. Has expiratory wheezing, Steroids is added. labs showing WBC of 10.4 K, hemoglobin 8.7. Potassium 3.3 and magnesium 2.0. Liver enzymes not elevated. 09/09/2018 Patient still generally weak although a slightly improving. He remains on CIWA protocol. He is breathing quietly however is saturating 97% on 4 L oxygen via nasal cannula. Afebrile. With no leukocytosis. Repeat chest x-ray: Bibasilar infiltrates with a small effusion. Patient remains on Zosyn for possible aspiration pneumonia and urinary tract infection. However urine culture is negative. He got Lasix yesterday. Patient on steroids for possible COPD competent. 09/10/2018 patient is seen today in the ICU. He is more awake and alert and less lethargic. The bed to chair. His breathing is better but still tachypneic. He is on 4 L oxygen today. He is afebrile. Labs from today are unremarkable including CBC and BMP. Sugar is controlled. Magnesium is 2.2. Chest x-ray: Persistent right perihilar and left basilar infiltrates. We are his steroids. He remains on antibiotics. Pulmonary input is appreciated and they are following the patient closely 09/11/2018 Patient is seen today in the general medical floor at [facility]. He was transferred out of the ICU. Patient is sitting bit more awake and alert. He is calm. Not in respiratory distress. However he still generally weak and he has a swelling in his legs and scrotum. He got 1 dose of Lasix. Or coughing, he says he comes occasionally but he says his breathing is improving. Patient with no dyspnea while at rest. We will check echocardiogram for his leg swelling. No signs symptoms of local withdrawal and his mentation is intact today. Vitals are stable. He is saturating 93% on 4 L oxygen via NC. WBC is 10.8 K, which is mildly increased. Cultures so far are negative Hemoglobin 8.0. Repeat UA still s showing infection. We will order renal ultrasound 09/12/2018 pt was send back to the ICU last night for he had stool in his urine with some resp difficulty , repeat CT of chest and abd, did not show fistula in the UB but has moderate right side pleural effusion , pt got thoracocentasis today and abou 1.2 L of greenish yellow fluid was drained , specimen was sent for cutlture, pt remians on zosyn . urologist recommended CT pelvis cystogram: enterovesical fistula, plata catheter draining clear urine for now , we will keep plata catheter. 08/14/2018 Patient is to the general medical floor today. He still feels generally weak. His breathing is much better as per patient. Repeat chest x-ray: Improved left infiltrate.. No pneumothorax. Patient has enterovesical fistula. But no urinary symptoms and abdominal exam is soft. His currently on Zosyn. And urological team are following the patient Review of systems CONSTITUTIONAL: No fever, no malaise, no fatigue. HEENT: No recent visual problems or hearing problems. Denied any sore throat. CARDIOVASCULAR: No orthopnea, PND, no palpitations, no syncope. PULMONARY: no hemoptysis. GASTROINTESTINAL: No diarrhea, no nausea, no vomiting, no abdominal pain. Normoactive bowel sounds. NEUROLOGICAL: No headaches, no weakness, no numbness. HEMATOLOGICAL: Denies any bleeding or petechiae. GENITOURINARY: Denies any burning micturition, frequency, or urgency. MUSCULOSKELETAL/RHEUMATOLOGICAL: Denies any joint pain, swelling, or any muscle pain. ENDOCRINE: Denies any polyuria or polydipsia. Medication: Albuterol 0.5-3 mg, Pepcid 20 mg, heparin 5000 units, Motrin 400 mg, NovoLog insulin, Solu-Medrol 40 mg change to prednisone 30 mg , Zofran 4 mg, Zosyn 3.375 mg, thiamine 100 mg Objective - Vital Signs Vital signs: Vital Signs Temp 98.5 F 09/13/18 14:59 Pulse 67 09/13/18 14:59 Resp 16 09/13/18 14:59 BP 106/65 09/13/18 14:59 Pulse Ox 97 09/13/18 14:59 Intake & Output 09/12/18 09/13/18 09/13/18 18:59 06:59 18:59 Intake Total 1155 1035 10 Output Total 3475 1605 1030 Balance -2320 -570 -1020 Weight 76.5 kg Intake: IV 195 195 10 Piperacillin-Tazobactam 3 175 125 .375 gm In Sodium Chloride 0.9% 100 ml @ 25 mls/hr IVPB Q8HR [facility] Rx# :[id number] Sodium Chloride 0.9% 1, 20 70 10 000 ml @ 20 mls/hr IV . Q24H [facility] Rx#:[id number] Oral 960 840 Output: Urine 2275 1605 1030 Other 1200 Other: Voiding Method Indwelling Catheter Indwelling Catheter Indwelling Catheter - Exam -GENERAL: The patient is alert and oriented x3, not in any acute distress. He is weak and lethargic. he is malnourished. HEENT: Pupils are round and equally reacting to light. EOMI. No scleral icterus. No conjunctival pallor. Normocephalic, atraumatic. No pharyngeal erythema. No thyromegaly. CARDIOVASCULAR: S1 and S2 present. No murmurs, rubs, or gallops. PULMONARY: Chest is clear to auscultation, no wheezing or crackles. -ABDOMEN: Soft, nontender, nondistended, normoactive bowel sounds. No palpable organomegaly. Has Plata catheter in a Place. He has right femoral central line MUSCULOSKELETAL: No joint swelling or deformity. EXTREMITIES: No cyanosis, clubbing, or pedal edema. NEUROLOGICAL: Gross neurological examination did not reveal any focal deficits. SKIN: No rashes. - Labs CBC & Chem 7: 09/13/18 04:40 09/13/18 04:40 Labs: Abnormal Lab Results - Last 24 Hours (Table) 09/12/18 09/12/18 09/13/18 Range/Units 16:59 20:46 02:16 RBC (4.30-5.90) m/uL Hgb (13.0-17.5) gm/dL Hct (39.0-53.0) % MCV (80.0-100.0) fL RDW (11.5-15.5) % Lymphocytes # (1.0-4.8) k/uL Macrocytosis Carbon Dioxide (22-30) mmol/L Glucose (74-99) mg/dL POC Glucose (mg/dL) 154 H 205 H 145 H (75-99) mg/dL Calcium (8.4-10.2) mg/dL Total Protein (6.3-8.2) g/dL Albumin (3.5-5.0) g/dL 09/13/18 09/13/18 09/13/18 Range/Units 04:40 04:40 06:58 RBC 2.13 L (4.30-5.90) m/uL Hgb 7.3 L (13.0-17.5) gm/dL Hct 23.2 L (39.0-53.0) % MCV 108.7 H (80.0-100.0) fL RDW 16.5 H (11.5-15.5) % Lymphocytes # 0.7 L (1.0-4.8) k/uL Macrocytosis Marked A Carbon Dioxide 38 H (22-30) mmol/L Glucose 72 L (74-99) mg/dL POC Glucose (mg/dL) 71 L (75-99) mg/dL Calcium 7.9 L (8.4-10.2) mg/dL Total Protein 4.5 L (6.3-8.2) g/dL Albumin 2.1 L (3.5-5.0) g/dL 09/13/18 Range/Units 11:49 RBC (4.30-5.90) m/uL Hgb (13.0-17.5) gm/dL Hct (39.0-53.0) % MCV (80.0-100.0) fL RDW (11.5-15.5) % Lymphocytes # (1.0-4.8) k/uL Macrocytosis Carbon Dioxide (22-30) mmol/L Glucose (74-99) mg/dL POC Glucose (mg/dL) 103 H (75-99) mg/dL Calcium (8.4-10.2) mg/dL Total Protein (6.3-8.2) g/dL Albumin (3.5-5.0) g/dL Microbiology - Last 24 Hours (Table) 09/12/18 00:50 Urine Culture - Preliminary Urine,Voided Group D Enterococcus 09/12/18 13:26 Gram Stain - Preliminary Pleural Fluid Body Fluid Culture - Preliminary Assessment and Plan Assessment: enterovesical fistula Fall Alcohol withdrawal, with delirium tremens Acute hypoxic respiratory failure Possible aspiration pneumonia Acute COPD exacerbation Dehydration and hypovolemia. Hypokalemia Alcohol abuse Nicotine dependence Anemia calories-protein malnutrition Plan: This is a pleasant 73 years old male who presents because of alcohol withdrawal and fall found to have COPD exacerbation/pneumonia, UTI. Pulmonary/critical care team input is appreciated. Continue with antibiotics and IV fluids., . Continue with CIWA protocol. Continue with vitamins. Continue with gentle hydration. Replace electrolytes and monitors them. follow-up culture results Labs and medication were reviewed.. Continue same treatment. Continue with symptomatic treatment. Resume home medication. Monitor lytes and vitals. DVT and GI prophylaxis. Further recommendations of the clinical course of the patient DVT prophylaxis: Subcutaneous heparin GI Prophylaxis: Pepcid PT/OT: Pending Prognosis is guarded
[2018-09-13 16:48] LABS: Glucose,Whole Blood 197 mg/dL (75-99)
[2018-09-13 20:24] LABS: Glucose,Whole Blood 207 mg/dL (75-99)
[2018-09-14 03:03] LABS: Glucose,Whole Blood 339 mg/dL (75-99)
[2018-09-14 03:15] LABS: Glucose,Whole Blood 73 mg/dL (75-99)
[2018-09-14] MEDS: INSULIN ASPART (NovoLOG) 100 UNIT/ML VIAL SQ SCH ×5 (03:15→20:50)
[2018-09-14 03:26] LABS: Glucose,Whole Blood 69 mg/dL (75-99)
[2018-09-14 03:56] LABS: Anisocytosis Slight; Basophils % (A) 0 %; Eosinophils # (A) 0.1 k/uL (0-0.7); Eosinophils % (A) 2 %; HCT 24.3 % (39.0-53.0); HGB 7.6 gm/dL (13.0-17.5); Hypochromasia Slight; Lymphocytes # (A) 0.9 k/uL (1.0-4.8); Lymphocytes % (A) 16 %; MCH 34.3 pg (25.0-35.0); MCHC 31.1 g/dL (31.0-37.0); MCV 110.2 fL (80.0-100.0); Mean Platelet Volume 7.3; Monocytes # (A) 0.4 k/uL (0-1.0); Monocytes % (A) 6 %; Neutrophils # (A) 4.3 k/uL (1.3-7.7); Neutrophils % (A) 75 %; Platelet Count 448 k/uL (150-450); RBC 2.21 m/uL (4.30-5.90); RDW 16.8 % (11.5-15.5); WBC 5.7 k/uL (3.8-10.6)
[2018-09-14 03:57] LABS: Macrocytosis Marked
[2018-09-14 04:02] LABS: Magnesium 2.3 mg/dL (1.6-2.3); Phosphorus 3.7 mg/dL (2.5-4.5)
[2018-09-14 04:17] LABS: Glucose,Whole Blood 75 mg/dL (75-99)
[2018-09-14 04:17] LABS: Glucose,Whole Blood 85 mg/dL (75-99)
[2018-09-14] MEDS: IPRATROPIUM-ALBUTEROL 3 ML NEB INHALATION PRN ×3 (07:14→16:41)
[2018-09-14 07:29] LABS: Glucose,Whole Blood 92 mg/dL (75-99)
[2018-09-14] MEDS: predniSONE 10 MG TAB PO SCH (09:56)
[2018-09-14] MEDS: MULTIVITAMINS, THERA 1 EACH TAB PO SCH ×2 (09:56→09:57)
[2018-09-14] MEDS: THIAMINE 100 MG TAB PO SCH ×2 (09:56→17:10)
[2018-09-14] MEDS: PIPERACILLIN-TAZOBACTAM 3.375 GM in SODIUM CHLORIDE 0.9% 100 ML IVPB SCH ×3 (09:57→23:44)
[2018-09-14] MEDS: HEPARIN SODIUM,PORCINE 5,000 UNIT/ML 1 ML VIAL SQ SCH ×2 (09:57→20:50)
[2018-09-14] MEDS: FAMOTIDINE 20 MG TAB PO SCH ×2 (09:57→20:50)
--- NOTE | 2018-09-14 10:25 | P.PN ---
Subjective Progress Note Date: 09/14/18 CHIEF COMPLAINT: Diverticulitis with colovesicular fistula HISTORY OF PRESENT ILLNESS: Patient examined at the bedside. Patient reports some generalized abdominal discomfort. Denies pain with palpation. Denies nausea or vomiting. Benedict with clear yellow urine. PHYSICAL EXAM: VITAL SIGNS: Reviewed. GENERAL: Well-developed in no acute distress. HEENT: No sclera icterus. Extraocular movements grossly intact. Moist buccal mucosa. Head is atraumatic, normocephalic. ABDOMEN: Soft. Nondistended. Nontender. NEUROLOGIC: Alert and oriented. Cranial nerves II through XII grossly intact. ASSESSMENT: 1. Diverticulitis with colovesicular fistula PLAN: Patient will require colonoscopy. Will schedule for tomorrow with Dr. Francis Clear liquid diet today. NPO after midnight Nurse practitioner note has been reviewed by physician. Signing provider agrees with the documented findings, assessment, and plan of care. Objective - Vital Signs Vital signs: Vital Signs Temp 98.4 F 09/14/18 07:20 Pulse 44 L 09/14/18 07:25 Resp 18 09/14/18 07:20 BP 125/81 09/14/18 07:20 Pulse Ox 100 09/14/18 07:20 Intake & Output 09/13/18 09/14/18 09/14/18 18:59 06:59 18:59 Intake Total 10 610 Output Total 1630 2400 Balance -1620 -1790 Intake: IV 10 260 Piperacillin-Tazobactam 3 100 .375 gm In Sodium Chloride 0.9% 100 ml @ 25 mls/hr IVPB Q8HR [facility] Rx# :[id number] Sodium Chloride 0.9% 1, 10 160 000 ml @ 20 mls/hr IV . Q24H [facility] Rx#:[id number] Oral 350 Output: Urine 1630 2400 Other: Voiding Method Indwelling Catheter Indwelling Catheter # Voids 1 - Labs CBC & Chem 7: 09/14/18 03:32 09/14/18 03:32 Labs: Abnormal Lab Results - Last 24 Hours (Table) 09/13/18 09/13/18 09/13/18 Range/Units 11:49 16:44 20:23 RBC (4.30-5.90) m/uL Hgb (13.0-17.5) gm/dL Hct (39.0-53.0) % MCV (80.0-100.0) fL RDW (11.5-15.5) % Lymphocytes # (1.0-4.8) k/uL Macrocytosis Glucose (74-99) mg/dL POC Glucose (mg/dL) 103 H 197 H 207 H (75-99) mg/dL 09/14/18 09/14/18 09/14/18 Range/Units 03:01 03:09 03:14 RBC (4.30-5.90) m/uL Hgb (13.0-17.5) gm/dL Hct (39.0-53.0) % MCV (80.0-100.0) fL RDW (11.5-15.5) % Lymphocytes # (1.0-4.8) k/uL Macrocytosis Glucose (74-99) mg/dL POC Glucose (mg/dL) 339 H 69 L 73 L (75-99) mg/dL 09/14/18 09/14/18 Range/Units 03:32 03:32 RBC 2.21 L (4.30-5.90) m/uL Hgb 7.6 L (13.0-17.5) gm/dL Hct 24.3 L (39.0-53.0) % MCV 110.2 H (80.0-100.0) fL RDW 16.8 H (11.5-15.5) % Lymphocytes # 0.9 L (1.0-4.8) k/uL Macrocytosis Marked A Glucose 53 L (74-99) mg/dL POC Glucose (mg/dL) (75-99) mg/dL Microbiology - Last 24 Hours (Table) 09/12/18 13:26 Gram Stain - Preliminary Pleural Fluid Body Fluid Culture - Preliminary 09/12/18 00:50 Urine Culture - Preliminary Urine,Voided Group D Enterococcus
[2018-09-14 11:38] LABS: Glucose,Whole Blood 96 mg/dL (75-99)
[2018-09-14 14:53] LABS: Total Protein, Body Fluid 744 mg/dL
[2018-09-14] MEDS ORDERED: PEG 3350-NA SULF,BICARB,CL/KCL 4,000 ML BOTTLE PO ONE (15:00)
[2018-09-14] MEDS ORDERED: VANCOMYCIN IV PER PHARMACY 1 EACH MISC MISCELLANE PRN (15:29)
[2018-09-14] MEDS ORDERED: VANCOMYCIN 1,500 MG in SODIUM CHLORIDE 0.9% 250 ML IVPB SCH (16:00)
--- NOTE | 2018-09-14 16:30 | P.PN ---
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 Patient was brought in by an ambulance, and reportedly he tripped while walking and fell backwards hitting back of his head on the fridge. There was no loss of consciousness at the time of the incident, and patient's daughter called the ambulance with the patient for evaluation. The patient was drinking prior to the incident. He denies any headaches, lightheadedness, dizziness, denied any vision changes, no nausea vomiting or diarrhea. Not on any blood thinners. CT of the head and cervical spine was completed and showed moderate cerebral atrophy, no acute intracranial abnormality and mild spondylosis at C6 and 7 no acute fractures were seen. He was kept overnight in the emergency department, he was started on CIWA protocol for acute alcohol withdrawal syndrome. Lab work was completed in the emergency department and showed a white blood cell count of 6.1, hemoglobin of 9.4, sodium was 134, potassium is 2.5 and this was replaced per protocol, chloride was 94, CO2 is 31, BUN was 13 creatinine was 0.87, AST is 31, ALT was 20, alkaline phosphatase was 147, proBNP was 525. Patient was noted to have decreased oxygenation, decreased sats, after Ativan was given proceed with protocol. His decreased air movement auscultated on the left side, he was placed on 100% nonrebreather and his pulse ox is 88-89%, chest x-ray was obtained, showing stable left-sided consolidation and pleural effusion, hemodynamically related to aspiration pneumonia and asymmetric pulmonary edema. She was started on breathing treatments, antibiotics in the form of Zosyn, and is admitted to the intensive care unit for closer monitoring. She was given IV hydration in the emergency department with a liter bolus, and maintenance IV is 0.9 normal saline at a rate of 50 ML per hour. During my evaluation patient is quite lethargic, but opens eyes to verbal stimuli, and he is quite confused, he is only oriented to person, and he thinks he is in [place], he remains on 100% nonrebreather his current pulse ox is 90-92%, hemodynamically stable, blood pressure is 112/86, afebrile. on today's evaluation of 09/08/2018, the patient was seen quite awake and alert this morning. There has been improvement in the mental status since yesterday. Overnight, the patient was brought into the intensive care because of an aspiration. Significant diminished breath sounds in the left lung base along with some volume loss in the chest x-ray. He was placed on on the percent nonrebreather facemask. He was given aggressive chest PT. He was kept nothing by mouth. Overnight he improved and earlier this morning he was weaned down to 6 L about 2 by nasal cannula and he was able to maintain a saturation above 90%. His breathing was not labored. He had a congested cough. Unable to bring up much sputum. The cough strength has improved compared to yesterday. He has no signs of any agitation. In fact neurologically seemed to do much more alert and awake and following commands and responding to questions. Later on by early afternoon, the patient became more confused and restless. At that point we implemented this CIWA protocol and the patient was given Ativan which controlled his been eating. The patient is currently on antibiotics. The patient on IV Zosyn. The chest x-ray from today shows showed volume loss in the right lung base along with development of bilateral pleural effusion. Based on all this, I kept on the IV fluids to KVO. I gave the patient dose of Lasix 40 mg IV push and following that the patient producing adequate amount of urine output in the order of 750 mL. He remains in oxygen by nasal cannula at 6 L. Significant leukocytosis. Hemoglobin stable at 8.7. Function is stable. No other significant events otherwise for now. The main concern for now is his concern for pneumonia, respiratory failure and early a.m. His cough and mechanism has improved although it remains quite weak and somewhat ineffective and performing adequate pulmonary toileting. On 09/09/2018, the patient remains quite lethargic yet arousable. Chest x-ray still showing bilateral basal infiltrate and small better pleural effusion. His cough and presented to bring up much of sputum and his cough is weak. He is receiving PT. He is on 40% oxygen nasal cannula and his pulse is now 94%. I think that there is some aspiration related mucous plugs which the patient is unable to cough out. Nevertheless, despite his x-ray findings, he still breathing comfortably on 4 L of oxygen nasal cannula. No chest pain. No hemoptysis. No pleurisy. No agitation. He is breathing is nonlabored. He is receiving IV Zosyn. He is on IV Solu Medrol 40 mg every 8 hours. He is on DuoNeb nebulized treatments around the clock. His ammonia level is less than 9. On 09/10/2018, the patient is doing progress. He seems to be more awake. Is able to cough more effectively. His FiO2 has improved and is down to 40s about 2 by nasal cannula. His breathing is nonlabored. Chest x-ray showing bilateral consolidation lower lobe effusions. No chest pain. No aspiration. Is tolerating his diet is on DuoNeb nebulized treatment [id number] is on IV Solu-Medrol. He is on IV Zosyn. He is able to sit up on a chair. He remains quite weak and lethargic yet interactive and more talkative and communicating compared to yesterday. No focal neurological deficits for now. His urine remains quite cloudy and there is significant amount of sediment. The previously sent culture was contaminant and for that reason we sent another UA and urine culture. UA came back positive for white cells along with few clumps and there was occasional bacteria. There was also some crystals. Cultures are still pending for now. The patient is still on IV Zosyn. No seizure activity. No visual or auditory hallucinations on today's evaluation. On 09/11/2018, the patient is being seen in the medical floor. He is doing well. No significant complaints for now. He seems to much more alert and awake. No hallucinations. No delusions. No tremors. No altered mentation. Echocardiogram is to be done today. No significant respiratory distress. Currently he is on 4 L of oxygen nasal cannula. He was diuresed with IV Lasix and the dose of Lasix was given to him overnight. He is on a IV Solu Medrol which will be tapered down to prednisone burst taper. He is tolerating his diet. No nausea. No vomiting. Urine culture is still pending for now. Meanwhile, the patient does not show any signs of septicemia. He remains on IV Zosyn. On 09/12/2018, the patient got transferred back to the intensive care unit. Overnight the patient became more short of breath, lethargic, hypoxic, and he was found to have significant abdominal distention. I recommended an NG tube placement. Following that, the patient was sent for a CAT scan of the chest and abdomen and it showed emphysema, bilateral multifocal pneumonia, bilateral pleural effusion right more than left, and no acute intra-abdominal findings. NG tube was removed 9 GERD output was minimal. The patient this morning is feeling much better. His lactic acid levels are improving. He has no chest pain. No minutes cough without any significant sputum production. He was given a dose of Lasix following which produced excellent urine output. He has a Benedict catheter in place. The urine quality has improved symptomatically at this point in time nontender this was very cloudy and purulent. Cultures of been negative. The patient remains on IV Zosyn. Right-sided thoracentesis is being considered for now. On 09/13/2018, the patient is doing well. No respiratory distress. I performed a thoracentesis on him yesterday and total of 1 L of pleural fluid was aspirated from the right lung. Chest x-ray from today shows a small amount of effusion the left. He is swallowing well. No aspiration or sputum production. No respiratory distress. He is on 40s about 2 by nasal cannula. Meanwhile, the Benedict cath is in place. The urine output for now is quite clean. 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 This explains the constant abnormalities in the urine analysis is worsening in this patient. He remains on IV Zosyn. Gen. surgery has been consulted regarding a fistulous connection between the bladder and the sigmoid colon. No abdominal pain. No signs of any septicemia for the time being. Benedict catheter will be kept in place. On 09/06/2018 patient seen in follow-up on medical surgical floor. is resting comfortably in bed, in no acute distress, he is awake, alert to person, place, disoriented to time, but he knew who the president was. afebrile, hemodynamically stable, denies any difficulty breathing, lung sounds are reveal diffuse wheezes,patient is on oral prednisone, Zosyn for antibiotic coverage. No signs of DTs.his labs have been reviewed and showed white blood cell count is 5.7, hemoglobin is 7.6, serum phosphorus was 3.7, magnesium was 2.3. BMP was not done. Objective - Vital Signs Vital signs: Vital Signs Temp 98.4 F 09/14/18 07:20 Pulse 60 09/14/18 10:39 Resp 18 09/14/18 08:50 BP 125/81 09/14/18 07:20 Pulse Ox 100 09/14/18 07:20 Intake & Output 09/13/18 09/14/18 09/14/18 18:59 06:59 18:59 Intake Total 10 610 Output Total 1630 2400 900 Balance -1153 -8348 -900 Intake: IV 10 260 Piperacillin-Tazobactam 3 100 .375 gm In Sodium Chloride 0.9% 100 ml @ 25 mls/hr IVPB Q8HR [facility] Rx# :[id number] Sodium Chloride 0.9% 1, 10 160 000 ml @ 20 mls/hr IV . Q24H [facility] Rx#:[id number] Oral 350 Output: Urine 1630 2400 900 Other: Voiding Method Indwelling Catheter Indwelling Catheter Indwelling Catheter # Voids 1 - Exam GENERAL EXAM: Alert, pleasant, 73-year-old white male comfortable in no apparent distress. HEAD: Normocephalic/atraumatic. EYES: Normal reaction of pupils, equal size. Conjunctiva pink, sclera white. NOSE: Clear with pink turbinates. THROAT: No erythema or exudates. NECK: No masses, no JVD, no thyroid enlargement, no adenopathy. CHEST: No chest wall deformity. Symmetrical expansion. LUNGS: Equal air entry with diffuse wheezes CVS: Regular rate and rhythm, normal S1 and S2, no gallops, no murmurs, no rubs ABDOMEN: Soft, nontender. No hepatosplenomegaly, normal bowel sounds, no guarding or rigidity. EXTREMITIES: No clubbing, no edema, no cyanosis, 2+ pulses and upper and lower extremities. MUSCULOSKELETAL: Muscle strength and tone normal. SPINE: No scoliosis or deformity SKIN: No rashes CENTRAL NERVOUS SYSTEM: Alert and oriented -3. No focal deficits, tone is normal in all 4 extremities. PSYCHIATRIC: Alert and oriented -3. Appropriate affect. Intact judgment and insight. - Labs CBC & Chem 7: 09/14/18 03:32 09/14/18 03:32 Labs: Abnormal Lab Results - Last 24 Hours (Table) 09/13/18 09/13/18 09/14/18 Range/Units 16:44 20:23 03:01 RBC (4.30-5.90) m/uL Hgb (13.0-17.5) gm/dL Hct (39.0-53.0) % MCV (80.0-100.0) fL RDW (11.5-15.5) % Lymphocytes # (1.0-4.8) k/uL Macrocytosis Glucose (74-99) mg/dL POC Glucose (mg/dL) 197 H 207 H 339 H (75-99) mg/dL 09/14/18 09/14/18 09/14/18 Range/Units 03:09 03:14 03:32 RBC 2.21 L (4.30-5.90) m/uL Hgb 7.6 L (13.0-17.5) gm/dL Hct 24.3 L (39.0-53.0) % MCV 110.2 H (80.0-100.0) fL RDW 16.8 H (11.5-15.5) % Lymphocytes # 0.9 L (1.0-4.8) k/uL Macrocytosis Marked A Glucose (74-99) mg/dL POC Glucose (mg/dL) 69 L 73 L (75-99) mg/dL 09/14/18 Range/Units 03:32 RBC (4.30-5.90) m/uL Hgb (13.0-17.5) gm/dL Hct (39.0-53.0) % MCV (80.0-100.0) fL RDW (11.5-15.5) % Lymphocytes # (1.0-4.8) k/uL Macrocytosis Glucose 53 L (74-99) mg/dL POC Glucose (mg/dL) (75-99) mg/dL Microbiology - Last 24 Hours (Table) 09/12/18 00:50 Urine Culture - Final Urine,Voided Enterococcus faecium 09/12/18 13:26 Gram Stain - Preliminary Pleural Fluid Body Fluid Culture - Preliminary Assessment and Plan Plan: Assessment: #1. Acute hypoxemic respiratory failure related to suspected aspiration pneumonia, and mucus plugging in the left lung, chest x-ray showed left-sided consolidation and pleural effusion and the possibility of asymmetric pulmonary edema. #2. Urinary tract infection, with the urine cultures positive for Enterococcus faecium #3. 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 Acute delirium, related to acute alcohol withdrawal syndrome #5. Alcohol intoxication, falls at home, patient fell and hit his head while walking and tripping. CT head and cervical spine did not reveal any acute intracranial process or acute cervical fractures #6. Electrolyte abnormalities including mild hyponatremia, severe hypokalemia, hypochloremia, and increased CO2, hemodynamically related to patient's chronic alcoholism, poor nutrition, and dehydration #7. Chronic anemia #8. Chronic cigarette smoker #9. Chronic alcoholism with underlying malnutrition #10. Previous episode of pneumonia involving the left lower lobe in 2016 #11. Generalized weakness and debility and malnourishment Plan: Continue with Zosyn, oral prednisone, nebulized bronchodilators, GI and DVT prophylaxis, will consult ID service for management of antibiotics, urine cultures positive for enterococcus faecium, will add vancomycin. Urology and general surgery are following,and patient is being scheduled for colonoscopy tomorrow by Dr. Francis. I performed a history & physical examination of the patient and discussed their management with my nurse practitioner, Kaelyn Lamar. I reviewed the nurse practitioner's note and agree with the documented findings and plan of care. Lung sounds are positive for decreased air movement on the left side. The findings and the impression was discussed with the patient. I attest to the documentation by the nurse practitioner. Time with Patient: Less than 30
[2018-09-14 16:43] LABS: Glucose,Whole Blood 191 mg/dL (75-99)
[2018-09-14 20:05] LABS: Glucose,Whole Blood 147 mg/dL (75-99)
[2018-09-14] MEDS: SODIUM CHLORIDE 0.9% 1,000 ML IV SCH (20:53)
--- NOTE | 2018-09-14 22:06 | P.CONS ---
History of Present Illness - Reason for Consult Consult date: 09/14/18 Enterococcus faecium UTI and colovesical fistula Requesting physician: Deepak Shahid - Chief Complaint Fall and abd pain x 1 day - History of Present Illness Patient is a 73-year-old male who was brought to the ER at [facility] about a week ago after apparently the patient did have a follow-up already fall backwards hitting the head with the fridge the patient did not have any loss of consciousness and he was drinking alcohol prior to that the falling episode, since the patient has been admitted to the hospital no fever has been recorded only one day he did have slightly elevated white count of 10.8 the patient did have persistent abnormal UA 1 culture came positive enterococcus fecium that prompted this infectious disease consultation, patient did have extensive workup during this hospital stay including a CT of chest abdominal pelvis which was evidence of bilateral pleural effusion but no consolidation and did not show any specific abnormality around the colon area however the patient did have dedicated pelvic CT which is evidence of colovesical fistula for which general surgery has been consulted. The patient is currently afebrile denies any rigors or chills he did mention he did have some left lower abdominal pain and he presented to the hospital more of a dull aching pain 2-3 out of 10 and no radiation therapy and subsequently has his the patient did have a indwelling Benedict catheter draining clear urine with no evidence of hematuria patient denies having any nausea no vomiting no chest pain shortness of breath or cough Review of Systems Positive points has been mentioned in HPI rest of the systems are negative Past Medical History Past Medical History: No Reported History Additional Past Medical History / Comment(s): Severe anemia, previous pneumonia involving the left lower lobe for which she was hospitalized at [facility] in 2016, chronic smoker, alcoholism, malnutrition History of Any Multi-Drug Resistant Organisms: None Reported Past Surgical History: No Surgical Hx Reported, Tonsillectomy Additional Past Surgical History / Comment(s): Pt states he has never had surgery. Past Anesthesia/Blood Transfusion Reactions: Unable to Obtain Past Psychological History: No Psychological Hx Reported Additional Psychological History / Comment(s): Pt resides in a home alone. He just got a walker yesterday. He does not have a patient transportation driver's license. He gets to appointments by friends. Friends also help him get food. Smoking Status: Current every day smoker Past Alcohol Use History: Abuse, Daily, Heavy Additional Past Alcohol Use History / Comment(s): Pt started smoking in 1967 and smokes 1-1.5 ppd. He drinks approximately 2-3 shots of liqour a day, he doesn't measure with a shot glass, he just pour liqour into a "rock" glass. Past Drug Use History: None Reported - Past Family History Mother Additional Family Medical History / Comment(s): from cirrhosis Father Additional Family Medical History / Comment(s): from [place] Medications and Allergies Home Medications Medication Instructions Recorded Confirmed Type Aspirin EC [Ecotrin] 325 mg PO QID PRN 01/21/18 09/06/18 History Allergies Allergy/AdvReac Type Severity Reaction Status Date / Time lorazepam [From Ativan] AdvReac Severe Unknown Verified 09/12/18 01:14 Physical Exam Vitals: Vital Signs Temp Pulse Pulse Pulse Resp BP Pulse Ox 09/14/18 13:59 98.6 F 73 18 112/67 95 09/14/18 10:39 60 09/14/18 10:27 60 09/14/18 08:50 58 L 18 09/14/18 07:25 44 L 09/14/18 07:20 98.4 F 58 L 18 125/81 100 09/14/18 07:14 44 L 09/14/18 03:28 16 09/14/18 02:19 98.3 F 65 18 120/72 100 09/14/18 00:10 18 09/13/18 19:40 98.4 F 88 17 147/92 98 09/13/18 19:30 18 09/13/18 19:10 98.9 F 63 18 115/68 98 Intake and Output 09/14/18 09/14/18 09/14/18 06:59 14:59 22:59 Intake Total 260 Output Total 3837 270 4763 Balance -1390 -900 -1100 Intake: IV 260 Piperacillin-Tazobactam 3 100 .375 gm In Sodium Chloride 0.9% 100 ml @ 25 mls/hr IVPB Q8HR SANDY Rx# :[id number] Sodium Chloride 0.9% 1, 160 000 ml @ 20 mls/hr IV . Q24H SANDY Rx#:[id number] Output: Urine 0530 584 2485 Other: Voiding Method Indwelling Catheter Indwelling Catheter # Voids 1 # Bowel Movements 1 1 Weight 76.5 kg GENERAL DESCRIPTION: Elderly male lying in bed, no distress. No tachypnea or accessory muscle of respiration use. HEENT: Shows Pallor , no scleral icterus. Oral mucous membrane is dry. No pharyngeal erythema or thrush NECK: Trachea central, no thyromegaly. LUNGS: Unlabored breathing. Clear to auscultation anteriorly. No wheeze or crackle. HEART: S1, S2, regular rate and rhythm. No loud murmur ABDOMEN: Soft, no tenderness , guarding or rigidity, no organomegaly EXTREMITIES: No edema of feet. SKIN: No rash, no masses palpable. NEUROLOGICAL: The patient is awake, alert, oriented x3, mood and affect normal Results CBC & Chem 7: 09/14/18 03:32 09/14/18 03:32 Labs: Abnormal Lab Results - Last 24 Hours (Table) 09/13/18 09/13/18 09/14/18 Range/Units 16:44 20:23 03:01 RBC (4.30-5.90) m/uL Hgb (13.0-17.5) gm/dL Hct (39.0-53.0) % MCV (80.0-100.0) fL RDW (11.5-15.5) % Lymphocytes # (1.0-4.8) k/uL Macrocytosis Glucose (74-99) mg/dL POC Glucose (mg/dL) 197 H 207 H 339 H (75-99) mg/dL 09/14/18 09/14/18 09/14/18 Range/Units 03:09 03:14 03:32 RBC 2.21 L (4.30-5.90) m/uL Hgb 7.6 L (13.0-17.5) gm/dL Hct 24.3 L (39.0-53.0) % MCV 110.2 H (80.0-100.0) fL RDW 16.8 H (11.5-15.5) % Lymphocytes # 0.9 L (1.0-4.8) k/uL Macrocytosis Marked A Glucose (74-99) mg/dL POC Glucose (mg/dL) 69 L 73 L (75-99) mg/dL 09/14/18 Range/Units 03:32 RBC (4.30-5.90) m/uL Hgb (13.0-17.5) gm/dL Hct (39.0-53.0) % MCV (80.0-100.0) fL RDW (11.5-15.5) % Lymphocytes # (1.0-4.8) k/uL Macrocytosis Glucose 53 L (74-99) mg/dL POC Glucose (mg/dL) (75-99) mg/dL Microbiology - Last 24 Hours (Table) 09/12/18 00:50 Urine Culture - Final Urine,Voided Enterococcus faecium 09/12/18 13:26 Gram Stain - Preliminary Pleural Fluid Body Fluid Culture - Preliminary Assessment and Plan Assessment: 1-patient with enterococcus Fecium urinary tract infection and complicated UTI in this patient who did have evidence of colovesical fistula possibly related to diverticulitis in this patient currently with no evidence of any sepsis fever and elevated white count, he will need both coverage for this enterococcus in addition to the enteric gram-negative both aerobes and anaerobes for his diverticulitis With a combination of vancomycin and Zosyn putting high risk of nephrotoxicity, (1) Diverticulitis large intestine Current Visit: Yes Status: Acute Code(s): K57.32 - DVTRCLI OF LG INT W/O PERFORATION OR ABSCESS W/O BLEEDING SNOMED Code(s): 2797958 (2) UTI (urinary tract infection) due to Enterococcus Current Visit: Yes Status: Acute Code(s): N39.0 - URINARY TRACT INFECTION, SITE NOT SPECIFIED; B95.2 - ENTEROCOCCUS THE CAUSE OF DISEASES CLASSIFIED EL SEWHERE SNOMED Code(s): 119731237624993 Plan: 1-we will add daptomycin 4 mg per KG to cover for this enterococcus and discontinue the vancomycin 2-continue with Zosyn 3.375 g every 8 hours 3-IV fluids He will follow on his clinical condition and culture to further adjust medication if needed Thank you for this consultation will follow this patient along with you Time with Patient: Greater than 30
--- NOTE | 2018-09-14 22:33 | P.PN ---
Subjective This is a pleasant 73 years old male with past medical history of anemia, alcohol abuse, cigarette smoker, malnutrition. Patient states that he came to the hospital because he fell on 1919 2 PM, when he felt backwards and he hit his head. After that he was lying on the floor without losing consciousness, no dizziness or syncope prior or after the fall. He thinks that his room made Kiran or his daughter called EMS for him. Patient denies headache. No chest pain or dyspnea. He states that he has chronic cough with phlegm. No chest pain or abdominal pain. No nausea vomiting. No change in urine or bowel habits. No fever. He's not sure about his walking and how was he do one prior to fall. Patient is afebrile, blood pressure 102/73, heart rate 68, respiratory rate 21, is saturating 88% on room air. His CBC showed normal WBC, hemoglobin 9.4. Platelet 439. Electrolytes showing sodium 134, potassium 2.5, went up to 4.9. Creatinine 0.8. Glucose 115. Liver enzymes elevated rate low albumin at 2.5. TSH 3.1. CAT scan of the head showing cerebral atrophy, CT of the cervical spine showing no fracture as per radiologist. Patient has already been started on CIWA protocol. Patient admitted to the intensive care unit upon admission 09/08/2018 Patient remains in the ICU for alcohol withdrawal on CIWA protocol., Yesterday evening patient got hypoxic while he is getting the Ativan. Chest x-ray was obtained which was suspicious for COPD/pneumonia. There was concern for aspiration pneumonia. Pulmonary team was been called to evaluate the patient. Right femoral line was placed, Plata catheter with turbid urine was placed. Urinalysis was suspicious for infection. Patient was started on Zosyn. Urine culture is pending. Currently patient is saturating 97% on 6 L oxygen nasal cannula. Blood pressure is 97/54, his currently on normal saline and 1 25 mL/h. Has expiratory wheezing, Steroids is added. labs showing WBC of 10.4 K, hemoglobin 8.7. Potassium 3.3 and magnesium 2.0. Liver enzymes not elevated. 09/09/2018 Patient still generally weak although a slightly improving. He remains on CIWA protocol. He is breathing quietly however is saturating 97% on 4 L oxygen via nasal cannula. Afebrile. With no leukocytosis. Repeat chest x-ray: Bibasilar infiltrates with a small effusion. Patient remains on Zosyn for possible aspiration pneumonia and urinary tract infection. However urine culture is negative. He got Lasix yesterday. Patient on steroids for possible COPD competent. 09/10/2018 patient is seen today in the ICU. He is more awake and alert and less lethargic. The bed to chair. His breathing is better but still tachypneic. He is on 4 L oxygen today. He is afebrile. Labs from today are unremarkable including CBC and BMP. Sugar is controlled. Magnesium is 2.2. Chest x-ray: Persistent right perihilar and left basilar infiltrates. We are his steroids. He remains on antibiotics. Pulmonary input is appreciated and they are following the patient closely 09/11/2018 Patient is seen today in the general medical floor at [facility]. He was transferred out of the ICU. Patient is sitting bit more awake and alert. He is calm. Not in respiratory distress. However he still generally weak and he has a swelling in his legs and scrotum. He got 1 dose of Lasix. Or coughing, he says he comes occasionally but he says his breathing is improving. Patient with no dyspnea while at rest. We will check echocardiogram for his leg swelling. No signs symptoms of local withdrawal and his mentation is intact today. Vitals are stable. He is saturating 93% on 4 L oxygen via NC. WBC is 10.8 K, which is mildly increased. Cultures so far are negative Hemoglobin 8.0. Repeat UA still s showing infection. We will order renal ultrasound 09/12/2018 pt was send back to the ICU last night for he had stool in his urine with some resp difficulty , repeat CT of chest and abd, did not show fistula in the UB but has moderate right side pleural effusion , pt got thoracocentasis today and abou 1.2 L of greenish yellow fluid was drained , specimen was sent for cutlture, pt remians on zosyn . urologist recommended CT pelvis cystogram: enterovesical fistula, plata catheter draining clear urine for now , we will keep plata catheter. 09/13/2018 Patient is to the general medical floor today. He still feels generally weak. His breathing is much better as per patient. Repeat chest x-ray: Improved left infiltrate.. No pneumothorax. Patient has enterovesical fistula. But no urinary symptoms and abdominal exam is soft. His currently on Zosyn. And urological team are following the patient 09/14/2018 pt is in general medical floor, his breathing is stable , no chest or abd pain , he is fully awake but severely generally weak , he has several medical problems going on , including alcohol abuse history , alcohol withdrawal, chest infection and fluid which was drained and entero-vesical fistula and de-conditioning, diverticulitis and UTI, infectious disease input is appreciated , stop vancomycin and start daptomycin and continue with zosyn , pt is possibly going for colonoscopy tomorrow with the surgical team , also pt has hypoglycemia from malnutrition and extensive history of alcoholism although he is not on diabetic medication , discussed the case with the psychiatric technician assistant who will evaluate him today Review of systems CONSTITUTIONAL: No fever, no malaise, no fatigue. HEENT: No recent visual problems or hearing problems. Denied any sore throat. CARDIOVASCULAR: No orthopnea, PND, no palpitations, no syncope. PULMONARY: no hemoptysis. GASTROINTESTINAL: No diarrhea, no nausea, no vomiting, no abdominal pain. Normoactive bowel sounds. NEUROLOGICAL: No headaches, no weakness, no numbness. HEMATOLOGICAL: Denies any bleeding or petechiae. GENITOURINARY: Denies any burning micturition, frequency, or urgency. MUSCULOSKELETAL/RHEUMATOLOGICAL: Denies any joint pain, swelling, or any muscle pain. ENDOCRINE: Denies any polyuria or polydipsia. Medication: Albuterol 0.5-3 mg, Pepcid 20 mg, heparin 5000 units, Motrin 400 mg, NovoLog insulin, Solu-Medrol 40 mg change to prednisone 30 mg , Zofran 4 mg, Zosyn 3.375 mg, thiamine 100 mg, daptomycin Objective - Vital Signs Vital signs: Vital Signs Temp 98.6 F 09/14/18 13:59 Pulse 60 09/14/18 16:52 Resp 18 09/14/18 16:00 BP 112/67 09/14/18 13:59 Pulse Ox 95 09/14/18 16:42 Intake & Output 09/14/18 09/14/18 09/15/18 06:59 18:59 06:59 Intake Total 610 Output Total 2400 2800 Balance -1790 -2800 Weight 76.5 kg Intake: IV 260 Piperacillin-Tazobactam 3 100 .375 gm In Sodium Chloride 0.9% 100 ml @ 25 mls/hr IVPB Q8HR [facility] Rx# :[id number] Sodium Chloride 0.9% 1, 160 000 ml @ 20 mls/hr IV . Q24H SANDY Rx#:[id number] Oral 350 Output: Urine 2400 2800 Other: Voiding Method Indwelling Catheter Indwelling Catheter # Voids 1 # Bowel Movements 1 - Exam -GENERAL: The patient is alert and oriented x3, not in any acute distress. He is weak and lethargic. he is malnourished. HEENT: Pupils are round and equally reacting to light. EOMI. No scleral icterus. No conjunctival pallor. Normocephalic, atraumatic. No pharyngeal erythema. No thyromegaly. CARDIOVASCULAR: S1 and S2 present. No murmurs, rubs, or gallops. PULMONARY: Chest is clear to auscultation, no wheezing or crackles. -ABDOMEN: Soft, nontender, nondistended, normoactive bowel sounds. No palpable organomegaly. Has Plata catheter in a Place. He has right femoral central line MUSCULOSKELETAL: No joint swelling or deformity. EXTREMITIES: No cyanosis, clubbing, or pedal edema. NEUROLOGICAL: Gross neurological examination did not reveal any focal deficits. SKIN: No rashes. - Labs CBC & Chem 7: 09/14/18 03:32 09/14/18 03:32 Labs: Abnormal Lab Results - Last 24 Hours (Table) 09/14/18 09/14/18 09/14/18 Range/Units 03:01 03:09 03:14 RBC (4.30-5.90) m/uL Hgb (13.0-17.5) gm/dL Hct (39.0-53.0) % MCV (80.0-100.0) fL RDW (11.5-15.5) % Lymphocytes # (1.0-4.8) k/uL Macrocytosis Glucose (74-99) mg/dL POC Glucose (mg/dL) 339 H 69 L 73 L (75-99) mg/dL 09/14/18 09/14/18 09/14/18 Range/Units 03:32 03:32 16:34 RBC 2.21 L (4.30-5.90) m/uL Hgb 7.6 L (13.0-17.5) gm/dL Hct 24.3 L (39.0-53.0) % MCV 110.2 H (80.0-100.0) fL RDW 16.8 H (11.5-15.5) % Lymphocytes # 0.9 L (1.0-4.8) k/uL Macrocytosis Marked A Glucose 53 L (74-99) mg/dL POC Glucose (mg/dL) 191 H (75-99) mg/dL 09/14/18 Range/Units 20:02 RBC (4.30-5.90) m/uL Hgb (13.0-17.5) gm/dL Hct (39.0-53.0) % MCV (80.0-100.0) fL RDW (11.5-15.5) % Lymphocytes # (1.0-4.8) k/uL Macrocytosis Glucose (74-99) mg/dL POC Glucose (mg/dL) 147 H (75-99) mg/dL Microbiology - Last 24 Hours (Table) 09/12/18 13:26 Gram Stain - Preliminary Pleural Fluid Body Fluid Culture - Preliminary 09/12/18 00:50 Urine Culture - Final Urine,Voided Enterococcus faecium Assessment and Plan Assessment: enterovesical fistula diverticulitis uti , complicated Fall Alcohol withdrawal, with delirium tremens Acute hypoxic respiratory failure Possible aspiration pneumonia Acute COPD exacerbation Dehydration and hypovolemia. Hypokalemia Alcohol abuse Nicotine dependence Anemia calories-protein malnutrition Plan: This is a pleasant 73 years old male who presents because of alcohol withdrawal and fall found to have COPD exacerbation/pneumonia, UTI. Pulmonary/critical care team input is appreciated. Continue with antibiotics and IV fluids., . Continue with CIWA protocol. Continue with vitamins. Continue with gentle hydration. Replace electrolytes and monitors them. follow-up culture results Labs and medication were reviewed.. Continue same treatment. Continue with symptomatic treatment. Resume home medication. Monitor lytes and vitals. DVT and GI prophylaxis. Further recommendations of the clinical course of the patient DVT prophylaxis: Subcutaneous heparin GI Prophylaxis: Pepcid PT/OT: Pending Prognosis is guarded
[2018-09-15 01:57] LABS: Glucose,Whole Blood 80 mg/dL (75-99)
[2018-09-15] MEDS: INSULIN ASPART (NovoLOG) 100 UNIT/ML VIAL SQ SCH ×5 (02:28→22:18)
[2018-09-15 03:13] LABS: Glucose,Whole Blood 101 mg/dL (75-99)
[2018-09-15 07:00] LABS: Glucose,Whole Blood 92 mg/dL (75-99)
[2018-09-15] MEDS: IPRATROPIUM-ALBUTEROL 3 ML NEB INHALATION PRN ×2 (07:19→11:31)
[2018-09-15] MEDS: THIAMINE 100 MG TAB PO SCH ×2 (08:49→19:33)
[2018-09-15] MEDS: PIPERACILLIN-TAZOBACTAM 3.375 GM in SODIUM CHLORIDE 0.9% 100 ML IVPB SCH ×3 (08:49→23:52)
[2018-09-15] MEDS: predniSONE 10 MG TAB PO SCH (10:30)
[2018-09-15] MEDS: FAMOTIDINE 20 MG TAB PO SCH ×2 (10:30→23:52)
[2018-09-15] MEDS: HEPARIN SODIUM,PORCINE 5,000 UNIT/ML 1 ML VIAL SQ SCH ×2 (10:31→23:52)
[2018-09-15] MEDS: SODIUM CHLORIDE 0.9% 1,000 ML IV SCH (10:32)
[2018-09-15 11:01] LABS: African American GFR (CKD) >90 (>60 ml/min/1.73 sqM); Anion Gap 1 mmol/L; Blood Urea Nitrogen 9 mg/dL (9-20); Calcium 8.3 mg/dL (8.4-10.2); Carbon Dioxide 35 mmol/L (22-30); Chloride 100 mmol/L (98-107); Glucose 81 mg/dL (74-99); Potassium 4.3 mmol/L (3.5-5.1); Sodium 136 mmol/L (137-145)
--- NOTE | 2018-09-15 11:23 | P.PN ---
Subjective Progress Note Date: 09/15/18 CHIEF COMPLAINT: Diverticulitis with colovesicular fistula HISTORY OF PRESENT ILLNESS: Patient examined at the bedside. Patient denies abdominal pain. Denies nausea or vomiting. Tolerating clear liquid diet. Benedict with clear yellow urine. PHYSICAL EXAM: VITAL SIGNS: Reviewed. GENERAL: Well-developed in no acute distress. HEENT: No sclera icterus. Extraocular movements grossly intact. Moist buccal mucosa. Head is atraumatic, normocephalic. ABDOMEN: Soft. Nondistended. Nontender. NEUROLOGIC: Alert and oriented. Cranial nerves II through XII grossly intact. ASSESSMENT: 1. Diverticulitis with colovesicular fistula PLAN: Clear liquid diet today. NPO after midnight Colonoscopy tomorrow with Dr. Francis Nurse practitioner note has been reviewed by physician. Signing provider agrees with the documented findings, assessment, and plan of care. Objective - Vital Signs Vital signs: Vital Signs Temp 98 F 09/15/18 07:00 Pulse 56 L 09/15/18 07:32 Resp 12 09/15/18 07:00 BP 134/76 09/15/18 07:00 Pulse Ox 100 09/15/18 07:00 Intake & Output 09/14/18 09/15/18 09/15/18 18:59 06:59 18:59 Intake Total 200 Output Total 2800 1900 Balance -2800 -1700 Weight 76.5 kg Intake: IV 200 Piperacillin-Tazobactam 3 100 .375 gm In Sodium Chloride 0.9% 100 ml @ 25 mls/hr IVPB Q8HR [facility] Rx# :[id number] Sodium Chloride 0.9% 1, 100 000 ml @ 20 mls/hr IV . Q24H SANDY Rx#:[id number] Output: Urine 2800 1900 Other: Voiding Method Indwelling Catheter Indwelling Catheter # Bowel Movements 1 - Labs CBC & Chem 7: 09/14/18 03:32 09/15/18 10:01 Labs: Abnormal Lab Results - Last 24 Hours (Table) 09/14/18 09/14/18 09/15/18 Range/Units 16:34 20:02 03:12 Sodium (137-145) mmol/L Carbon Dioxide (22-30) mmol/L POC Glucose (mg/dL) 191 H 147 H 101 H (75-99) mg/dL Calcium (8.4-10.2) mg/dL 09/15/18 Range/Units 10:01 Sodium 136 L (137-145) mmol/L Carbon Dioxide 35 H (22-30) mmol/L POC Glucose (mg/dL) (75-99) mg/dL Calcium 8.3 L (8.4-10.2) mg/dL Microbiology - Last 24 Hours (Table) 09/12/18 13:26 Gram Stain - Preliminary Pleural Fluid Body Fluid Culture - Preliminary 09/12/18 00:50 Urine Culture - Final Urine,Voided Enterococcus faecium
[2018-09-15 11:50] LABS: Glucose,Whole Blood 84 mg/dL (75-99)
[2018-09-15 12:10] LABS: Anisocytosis Slight; Basophils % (A) 0 %; Eosinophils # (A) 0.1 k/uL (0-0.7); Eosinophils % (A) 1 %; HCT 29.4 % (39.0-53.0); HGB 8.6 gm/dL (13.0-17.5); Hypochromasia Moderate; Lymphocytes % (A) 17 %; MCH 33.1 pg (25.0-35.0); MCHC 29.3 g/dL (31.0-37.0); MCV 113.1 fL (80.0-100.0); Macrocytosis Marked; Mean Platelet Volume 7.8; Monocytes # (A) 0.3 k/uL (0-1.0); Monocytes % (A) 6 %; Neutrophils # (A) 4.4 k/uL (1.3-7.7); Neutrophils % (A) 75 %; Platelet Count 529 k/uL (150-450); RDW 16.1 % (11.5-15.5); WBC 5.9 k/uL (3.8-10.6)
--- NOTE | 2018-09-15 12:22 | P.PN ---
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 Patient was brought in by an ambulance, and reportedly he tripped while walking and fell backwards hitting back of his head on the fridge. There was no loss of consciousness at the time of the incident, and patient's daughter called the ambulance with the patient for evaluation. The patient was drinking prior to the incident. He denies any headaches, lightheadedness, dizziness, denied any vision changes, no nausea vomiting or diarrhea. Not on any blood thinners. CT of the head and cervical spine was completed and showed moderate cerebral atrophy, no acute intracranial abnormality and mild spondylosis at C6 and 7 no acute fractures were seen. He was kept overnight in the emergency department, he was started on CIWA protocol for acute alcohol withdrawal syndrome. Lab work was completed in the emergency department and showed a white blood cell count of 6.1, hemoglobin of 9.4, sodium was 134, potassium is 2.5 and this was replaced per protocol, chloride was 94, CO2 is 31, BUN was 13 creatinine was 0.87, AST is 31, ALT was 20, alkaline phosphatase was 147, proBNP was 525. Patient was noted to have decreased oxygenation, decreased sats, after Ativan was given proceed with protocol. His decreased air movement auscultated on the left side, he was placed on 100% nonrebreather and his pulse ox is 88-89%, chest x-ray was obtained, showing stable left-sided consolidation and pleural effusion, hemodynamically related to aspiration pneumonia and asymmetric pulmonary edema. She was started on breathing treatments, antibiotics in the form of Zosyn, and is admitted to the intensive care unit for closer monitoring. She was given IV hydration in the emergency department with a liter bolus, and maintenance IV is 0.9 normal saline at a rate of 50 ML per hour. During my evaluation patient is quite lethargic, but opens eyes to verbal stimuli, and he is quite confused, he is only oriented to person, and he thinks he is in [place], he remains on 100% nonrebreather his current pulse ox is 90-92%, hemodynamically stable, blood pressure is 112/86, afebrile. on today's evaluation of 09/08/2018, the patient was seen quite awake and alert this morning. There has been improvement in the mental status since yesterday. Overnight, the patient was brought into the intensive care because of an aspiration. Significant diminished breath sounds in the left lung base along with some volume loss in the chest x-ray. He was placed on on the percent nonrebreather facemask. He was given aggressive chest PT. He was kept nothing by mouth. Overnight he improved and earlier this morning he was weaned down to 6 L about 2 by nasal cannula and he was able to maintain a saturation above 90%. His breathing was not labored. He had a congested cough. Unable to bring up much sputum. The cough strength has improved compared to yesterday. He has no signs of any agitation. In fact neurologically seemed to do much more alert and awake and following commands and responding to questions. Later on by early afternoon, the patient became more confused and restless. At that point we implemented this CIWA protocol and the patient was given Ativan which controlled his been eating. The patient is currently on antibiotics. The patient on IV Zosyn. The chest x-ray from today shows showed volume loss in the right lung base along with development of bilateral pleural effusion. Based on all this, I kept on the IV fluids to KVO. I gave the patient dose of Lasix 40 mg IV push and following that the patient producing adequate amount of urine output in the order of 750 mL. He remains in oxygen by nasal cannula at 6 L. Significant leukocytosis. Hemoglobin stable at 8.7. Function is stable. No other significant events otherwise for now. The main concern for now is his concern for pneumonia, respiratory failure and early a.m. His cough and mechanism has improved although it remains quite weak and somewhat ineffective and performing adequate pulmonary toileting. On 09/09/2018, the patient remains quite lethargic yet arousable. Chest x-ray still showing bilateral basal infiltrate and small better pleural effusion. His cough and presented to bring up much of sputum and his cough is weak. He is receiving PT. He is on 40% oxygen nasal cannula and his pulse is now 94%. I think that there is some aspiration related mucous plugs which the patient is unable to cough out. Nevertheless, despite his x-ray findings, he still breathing comfortably on 4 L of oxygen nasal cannula. No chest pain. No hemoptysis. No pleurisy. No agitation. He is breathing is nonlabored. He is receiving IV Zosyn. He is on IV Solu Medrol 40 mg every 8 hours. He is on DuoNeb nebulized treatments around the clock. His ammonia level is less than 9. On 09/10/2018, the patient is doing progress. He seems to be more awake. Is able to cough more effectively. His FiO2 has improved and is down to 40s about 2 by nasal cannula. His breathing is nonlabored. Chest x-ray showing bilateral consolidation lower lobe effusions. No chest pain. No aspiration. Is tolerating his diet is on DuoNeb nebulized treatment [id number] is on IV Solu-Medrol. He is on IV Zosyn. He is able to sit up on a chair. He remains quite weak and lethargic yet interactive and more talkative and communicating compared to yesterday. No focal neurological deficits for now. His urine remains quite cloudy and there is significant amount of sediment. The previously sent culture was contaminant and for that reason we sent another UA and urine culture. UA came back positive for white cells along with few clumps and there was occasional bacteria. There was also some crystals. Cultures are still pending for now. The patient is still on IV Zosyn. No seizure activity. No visual or auditory hallucinations on today's evaluation. On 09/11/2018, the patient is being seen in the medical floor. He is doing well. No significant complaints for now. He seems to much more alert and awake. No hallucinations. No delusions. No tremors. No altered mentation. Echocardiogram is to be done today. No significant respiratory distress. Currently he is on 4 L of oxygen nasal cannula. He was diuresed with IV Lasix and the dose of Lasix was given to him overnight. He is on a IV Solu Medrol which will be tapered down to prednisone burst taper. He is tolerating his diet. No nausea. No vomiting. Urine culture is still pending for now. Meanwhile, the patient does not show any signs of septicemia. He remains on IV Zosyn. On 09/12/2018, the patient got transferred back to the intensive care unit. Overnight the patient became more short of breath, lethargic, hypoxic, and he was found to have significant abdominal distention. I recommended an NG tube placement. Following that, the patient was sent for a CAT scan of the chest and abdomen and it showed emphysema, bilateral multifocal pneumonia, bilateral pleural effusion right more than left, and no acute intra-abdominal findings. NG tube was removed 9 GERD output was minimal. The patient this morning is feeling much better. His lactic acid levels are improving. He has no chest pain. No minutes cough without any significant sputum production. He was given a dose of Lasix following which produced excellent urine output. He has a Benedict catheter in place. The urine quality has improved symptomatically at this point in time nontender this was very cloudy and purulent. Cultures of been negative. The patient remains on IV Zosyn. Right-sided thoracentesis is being considered for now. On 09/13/2018, the patient is doing well. No respiratory distress. I performed a thoracentesis on him yesterday and total of 1 L of pleural fluid was aspirated from the right lung. Chest x-ray from today shows a small amount of effusion the left. He is swallowing well. No aspiration or sputum production. No respiratory distress. He is on 40s about 2 by nasal cannula. Meanwhile, the Benedict cath is in place. The urine output for now is quite clean. 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 This explains the constant abnormalities in the urine analysis is worsening in this patient. He remains on IV Zosyn. Gen. surgery has been consulted regarding a fistulous connection between the bladder and the sigmoid colon. No abdominal pain. No signs of any septicemia for the time being. Benedict catheter will be kept in place. On 09/06/2018 patient seen in follow-up on medical surgical floor. is resting comfortably in bed, in no acute distress, he is awake, alert to person, place, disoriented to time, but he knew who the president was. afebrile, hemodynamically stable, denies any difficulty breathing, lung sounds are reveal diffuse wheezes,patient is on oral prednisone, Zosyn for antibiotic coverage. No signs of DTs.his labs have been reviewed and showed white blood cell count is 5.7, hemoglobin is 7.6, serum phosphorus was 3.7, magnesium was 2.3. BMP was not done. On 09/15/2018 patient is seen in follow-up on medical surgical floor. Patient is resting in bed, he denies any acute distress, lung sounds are positive for a few scattered rales and wheezes, Nonproductive Cough. No signs of DTs. No complaints of worsening dyspnea, chest pain, cough or congestion. Remains on oral prednisone, Zosyn and Daptomycin for antibiotic coverage, patient is scheduled for colonoscopy sometime tomorrow. Benedict catheter remains in place and is draining clear yellow urine. His labs have been reviewed serum sodium is 1.36, potassium is 4.3, chloride is 100, CO2 is 35, BUN is 9 creatinine 0.69. Daptomycin was added by ID service yesterday for evidence of enterococcus faecium in urine Objective - Vital Signs Vital signs: Vital Signs Temp 98 F 09/15/18 07:00 Pulse 56 L 09/15/18 11:47 Resp 12 09/15/18 08:30 BP 134/76 09/15/18 07:00 Pulse Ox 100 09/15/18 07:00 Intake & Output 09/14/18 09/15/18 09/15/18 18:59 06:59 18:59 Intake Total 200 Output Total 2800 1900 1300 Balance -2800 -1700 -1300 Weight 76.5 kg Intake: IV 200 Piperacillin-Tazobactam 3 100 .375 gm In Sodium Chloride 0.9% 100 ml @ 25 mls/hr IVPB Q8HR [facility] Rx# :[id number] Sodium Chloride 0.9% 1, 100 000 ml @ 20 mls/hr IV . Q24H [facility] Rx#:[id number] Output: Urine 2800 1900 1300 Other: Voiding Method Indwelling Catheter Indwelling Catheter Indwelling Catheter # Voids 1 # Bowel Movements 1 - Exam GENERAL EXAM: Alert, pleasant, 73-year-old white male comfortable in no apparent distress. HEAD: Normocephalic/atraumatic. EYES: Normal reaction of pupils, equal size. Conjunctiva pink, sclera white. NOSE: Clear with pink turbinates. THROAT: No erythema or exudates. NECK: No masses, no JVD, no thyroid enlargement, no adenopathy. CHEST: No chest wall deformity. Symmetrical expansion. LUNGS: Equal air entry with diffuse wheezes CVS: Regular rate and rhythm, normal S1 and S2, no gallops, no murmurs, no rubs ABDOMEN: Soft, nontender. No hepatosplenomegaly, normal bowel sounds, no guarding or rigidity. EXTREMITIES: No clubbing, no edema, no cyanosis, 2+ pulses and upper and lower extremities. MUSCULOSKELETAL: Muscle strength and tone normal. SPINE: No scoliosis or deformity SKIN: No rashes CENTRAL NERVOUS SYSTEM: Alert and oriented -3. No focal deficits, tone is normal in all 4 extremities. PSYCHIATRIC: Alert and oriented -3. Appropriate affect. Intact judgment and insight. - Labs CBC & Chem 7: 09/14/18 03:32 09/15/18 10:01 Labs: Abnormal Lab Results - Last 24 Hours (Table) 09/14/18 09/14/18 09/15/18 Range/Units 16:34 20:02 03:12 Sodium (137-145) mmol/L Carbon Dioxide (22-30) mmol/L POC Glucose (mg/dL) 191 H 147 H 101 H (75-99) mg/dL Calcium (8.4-10.2) mg/dL 09/15/18 Range/Units 10:01 Sodium 136 L (137-145) mmol/L Carbon Dioxide 35 H (22-30) mmol/L POC Glucose (mg/dL) (75-99) mg/dL Calcium 8.3 L (8.4-10.2) mg/dL Microbiology - Last 24 Hours (Table) 09/12/18 13:26 Gram Stain - Preliminary Pleural Fluid Body Fluid Culture - Preliminary 09/12/18 00:50 Urine Culture - Final Urine,Voided Enterococcus faecium Assessment and Plan Plan: Assessment: #1. Acute hypoxemic respiratory failure related to suspected aspiration pneumonia, and mucus plugging in the left lung, chest x-ray showed left-sided consolidation and pleural effusion and the possibility of asymmetric pulmonary edema. #2. Urinary tract infection, with the urine cultures positive for Enterococcus faecium #3. 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 Acute delirium, related to acute alcohol withdrawal syndrome #5. Alcohol intoxication, falls at home, patient fell and hit his head while walking and tripping. CT head and cervical spine did not reveal any acute intracranial process or acute cervical fractures #6. Electrolyte abnormalities including mild hyponatremia, severe hypokalemia, hypochloremia, and increased CO2, hemodynamically related to patient's chronic alcoholism, poor nutrition, and dehydration #7. Chronic anemia #8. Chronic cigarette smoker #9. Chronic alcoholism with underlying malnutrition #10. Previous episode of pneumonia involving the left lower lobe in 2016 #11. Generalized weakness and debility and malnourishment Plan: Continue with antibiotics per ID service recommendations, continue oral prednisone, nebulized bronchodilators, encourage deep breathing and coughing, ambulation, physical therapy. Patient is being scheduled for colonoscopy sometime tomorrow. I performed a history & physical examination of the patient and discussed their management with my nurse practitioner, Kaelyn Lamar. I reviewed the nurse practitioner's note and agree with the documented findings and plan of care. Lung sounds are positive for decreased air movement on the left side. The findings and the impression was discussed with the patient. I attest to the documentation by the nurse practitioner. Time with Patient: Less than 30
[2018-09-15] MEDS ORDERED: PEG 3350-NA SULF,BICARB,CL/KCL 4,000 ML BOTTLE PO ONE (14:00)
[2018-09-15 16:36] LABS: Iron Saturation 42.2 (15.00-50.00)
[2018-09-15 16:54] LABS: Glucose,Whole Blood 112 mg/dL (75-99)
[2018-09-15 17:02] LABS: Folate, Serum 19.2 ng/mL
--- NOTE | 2018-09-15 17:40 | P.PN ---
Subjective This is a pleasant 73 years old male with past medical history of anemia, alcohol abuse, cigarette smoker, malnutrition. Patient states that he came to the hospital because he fell on 1919 2 PM, when he felt backwards and he hit his head. After that he was lying on the floor without losing consciousness, no dizziness or syncope prior or after the fall. He thinks that his room made Kiran or his daughter called EMS for him. Patient denies headache. No chest pain or dyspnea. He states that he has chronic cough with phlegm. No chest pain or abdominal pain. No nausea vomiting. No change in urine or bowel habits. No fever. He's not sure about his walking and how was he do one prior to fall. Patient is afebrile, blood pressure 102/73, heart rate 68, respiratory rate 21, is saturating 88% on room air. His CBC showed normal WBC, hemoglobin 9.4. Platelet 439. Electrolytes showing sodium 134, potassium 2.5, went up to 4.9. Creatinine 0.8. Glucose 115. Liver enzymes elevated rate low albumin at 2.5. TSH 3.1. CAT scan of the head showing cerebral atrophy, CT of the cervical spine showing no fracture as per radiologist. Patient has already been started on CIWA protocol. Patient admitted to the intensive care unit upon admission 09/08/2018 Patient remains in the ICU for alcohol withdrawal on CIWA protocol., Yesterday evening patient got hypoxic while he is getting the Ativan. Chest x-ray was obtained which was suspicious for COPD/pneumonia. There was concern for aspiration pneumonia. Pulmonary team was been called to evaluate the patient. Right femoral line was placed, Plata catheter with turbid urine was placed. Urinalysis was suspicious for infection. Patient was started on Zosyn. Urine culture is pending. Currently patient is saturating 97% on 6 L oxygen nasal cannula. Blood pressure is 97/54, his currently on normal saline and 1 25 mL/h. Has expiratory wheezing, Steroids is added. labs showing WBC of 10.4 K, hemoglobin 8.7. Potassium 3.3 and magnesium 2.0. Liver enzymes not elevated. 09/09/2018 Patient still generally weak although a slightly improving. He remains on CIWA protocol. He is breathing quietly however is saturating 97% on 4 L oxygen via nasal cannula. Afebrile. With no leukocytosis. Repeat chest x-ray: Bibasilar infiltrates with a small effusion. Patient remains on Zosyn for possible aspiration pneumonia and urinary tract infection. However urine culture is negative. He got Lasix yesterday. Patient on steroids for possible COPD competent. 09/10/2018 patient is seen today in the ICU. He is more awake and alert and less lethargic. The bed to chair. His breathing is better but still tachypneic. He is on 4 L oxygen today. He is afebrile. Labs from today are unremarkable including CBC and BMP. Sugar is controlled. Magnesium is 2.2. Chest x-ray: Persistent right perihilar and left basilar infiltrates. We are his steroids. He remains on antibiotics. Pulmonary input is appreciated and they are following the patient closely 09/11/2018 Patient is seen today in the general medical floor at [facility]. He was transferred out of the ICU. Patient is sitting bit more awake and alert. He is calm. Not in respiratory distress. However he still generally weak and he has a swelling in his legs and scrotum. He got 1 dose of Lasix. Or coughing, he says he comes occasionally but he says his breathing is improving. Patient with no dyspnea while at rest. We will check echocardiogram for his leg swelling. No signs symptoms of local withdrawal and his mentation is intact today. Vitals are stable. He is saturating 93% on 4 L oxygen via NC. WBC is 10.8 K, which is mildly increased. Cultures so far are negative Hemoglobin 8.0. Repeat UA still s showing infection. We will order renal ultrasound 09/12/2018 pt was send back to the ICU last night for he had stool in his urine with some resp difficulty , repeat CT of chest and abd, did not show fistula in the UB but has moderate right side pleural effusion , pt got thoracocentasis today and abou 1.2 L of greenish yellow fluid was drained , specimen was sent for cutlture, pt remians on zosyn . urologist recommended CT pelvis cystogram: enterovesical fistula, plata catheter draining clear urine for now , we will keep plata catheter. 09/13/2018 Patient is to the general medical floor today. He still feels generally weak. His breathing is much better as per patient. Repeat chest x-ray: Improved left infiltrate.. No pneumothorax. Patient has enterovesical fistula. But no urinary symptoms and abdominal exam is soft. His currently on Zosyn. And urological team are following the patient 09/14/2018 pt is in general medical floor, his breathing is stable , no chest or abd pain , he is fully awake but severely generally weak , he has several medical problems going on , including alcohol abuse history , alcohol withdrawal, chest infection and fluid which was drained and entero-vesical fistula and de-conditioning, diverticulitis and UTI, infectious disease input is appreciated , stop vancomycin and start daptomycin and continue with zosyn , pt is possibly going for colonoscopy tomorrow with the surgical team , also pt has hypoglycemia from malnutrition and extensive history of alcoholism although he is not on diabetic medication , discussed the case with the sexer who will evaluate him today 09/15/2018 Patient is breathing is stable. He denies abdominal pain. No nausea or vomiting. He is hemodynamically stable. leukocytosis. Hemoglobin is 8.6. BMP is unremarkable. Sugar is controlled. Iron study showing anemia of chronic disease. B12 is 508, and folate 19.2. Infectious disease saw the patient and they switch his antibiotics to daptomycin and Zosyn. Patient possibly going for colonoscopy tomorrow. Review of systems CONSTITUTIONAL: No fever, no malaise, no fatigue. HEENT: No recent visual problems or hearing problems. Denied any sore throat. CARDIOVASCULAR: No orthopnea, PND, no palpitations, no syncope. PULMONARY: no hemoptysis. GASTROINTESTINAL: No diarrhea, no nausea, no vomiting, no abdominal pain. Normoactive bowel sounds. NEUROLOGICAL: No headaches, no weakness, no numbness. HEMATOLOGICAL: Denies any bleeding or petechiae. GENITOURINARY: Denies any burning micturition, frequency, or urgency. MUSCULOSKELETAL/RHEUMATOLOGICAL: Denies any joint pain, swelling, or any muscle pain. ENDOCRINE: Denies any polyuria or polydipsia. Medication: Albuterol 0.5-3 mg, Pepcid 20 mg, heparin 5000 units, Motrin 400 mg, NovoLog insulin, Solu-Medrol 40 mg change to prednisone 30 mg , Zofran 4 mg, Zosyn 3.375 mg, thiamine 100 mg, daptomycin Objective - Vital Signs Vital signs: Vital Signs Temp 98 F 09/15/18 15:00 Pulse 67 09/15/18 15:00 Resp 12 09/15/18 15:00 BP 117/72 09/15/18 15:00 Pulse Ox 99 09/15/18 15:00 Intake & Output 09/14/18 09/15/18 09/15/18 18:59 06:59 18:59 Intake Total 200 900 Output Total 2800 1900 3250 Balance -2800 -1700 -2350 Weight 76.5 kg Intake: IV 200 Piperacillin-Tazobactam 3 100 .375 gm In Sodium Chloride 0.9% 100 ml @ 25 mls/hr IVPB Q8HR SANDY Rx# :[id number] Sodium Chloride 0.9% 1, 100 000 ml @ 20 mls/hr IV . Q24H SANDY Rx#:[id number] Oral 900 Output: Urine 2800 1900 3250 Other: Voiding Method Indwelling Catheter Indwelling Catheter Indwelling Catheter # Voids 1 # Bowel Movements 1 1 - Exam -GENERAL: The patient is alert and oriented x3, not in any acute distress. He is weak and lethargic. he is malnourished. HEENT: Pupils are round and equally reacting to light. EOMI. No scleral icterus. No conjunctival pallor. Normocephalic, atraumatic. No pharyngeal erythema. No thyromegaly. CARDIOVASCULAR: S1 and S2 present. No murmurs, rubs, or gallops. PULMONARY: Chest is clear to auscultation, no wheezing or crackles. -ABDOMEN: Soft, nontender, nondistended, normoactive bowel sounds. No palpable organomegaly. Has Plata catheter in a Place. He has right femoral central line MUSCULOSKELETAL: No joint swelling or deformity. EXTREMITIES: No cyanosis, clubbing, or pedal edema. NEUROLOGICAL: Gross neurological examination did not reveal any focal deficits. SKIN: No rashes. - Labs CBC & Chem 7: 09/15/18 10:01 09/15/18 10:01 Labs: Abnormal Lab Results - Last 24 Hours (Table) 09/14/18 09/15/18 09/15/18 Range/Units 20:02 03:12 10:01 RBC (4.30-5.90) m/uL Hgb (13.0-17.5) gm/dL Hct (39.0-53.0) % MCV (80.0-100.0) fL MCHC (31.0-37.0) g/dL RDW (11.5-15.5) % Plt Count (150-450) k/uL Macrocytosis Sodium 136 L (137-145) mmol/L Carbon Dioxide 35 H (22-30) mmol/L POC Glucose (mg/dL) 147 H 101 H (75-99) mg/dL Calcium 8.3 L (8.4-10.2) mg/dL TIBC (228-460) ug/dL 09/15/18 09/15/18 09/15/18 Range/Units 10:01 10:01 16:52 RBC 2.60 L (4.30-5.90) m/uL Hgb 8.6 L (13.0-17.5) gm/dL Hct 29.4 L (39.0-53.0) % MCV 113.1 H (80.0-100.0) fL MCHC 29.3 L (31.0-37.0) g/dL RDW 16.1 H (11.5-15.5) % Plt Count 529 H (150-450) k/uL Macrocytosis Marked A Sodium (137-145) mmol/L Carbon Dioxide (22-30) mmol/L POC Glucose (mg/dL) 112 H (75-99) mg/dL Calcium (8.4-10.2) mg/dL TIBC 218 L (228-460) ug/dL Microbiology - Last 24 Hours (Table) 09/12/18 13:26 Gram Stain - Preliminary Pleural Fluid Body Fluid Culture - Preliminary Assessment and Plan Assessment: enterovesical fistula diverticulitis uti , complicated Fall Alcohol withdrawal, with delirium tremens Acute hypoxic respiratory failure Possible aspiration pneumonia Acute COPD exacerbation Dehydration and hypovolemia. Hypokalemia Alcohol abuse Nicotine dependence Anemia calories-protein malnutrition Plan: This is a pleasant 73 years old male who presents because of alcohol withdrawal and fall found to have COPD exacerbation/pneumonia, UTI. Pulmonary/critical care team input is appreciated. Continue with antibiotics and IV fluids., . Continue with CIWA protocol. Continue with vitamins. Continue with gentle hydration. Replace electrolytes and monitors them. follow-up culture results Labs and medication were reviewed.. Continue same treatment. Continue with symptomatic treatment. Resume home medication. Monitor lytes and vitals. DVT and GI prophylaxis. Further recommendations of the clinical course of the patient DVT prophylaxis: Subcutaneous heparin GI Prophylaxis: Pepcid PT/OT: Pending Prognosis is guarded
[2018-09-15 19:59] LABS: Glucose,Whole Blood 136 mg/dL (75-99)
--- NOTE | 2018-09-15 21:02 | PN ---
PROGRESS NOTE DATE OF SERVICE: 09/15/2018 REASON FOR FOLLOWUP: Enterococcus faecium complicated urinary tract infection with colovesical fistula. INTERVAL HISTORY: The patient is currently afebrile. Patient was complaining of feeling dizzy and weak earlier. He has been drinking his GoLYTELY for his colon prep. No chest pain or shortness of breath or cough or any worsening abdominal pain. PHYSICAL EXAMINATION: Blood pressure 117/72 with pulse 67, temperature 98. He is 99% on 3 L nasal cannula. General description is an elderly male lying in bed in no distress. RESPIRATORY SYSTEM: Unlabored breathing. Clear to auscultation anteriorly. HEART: S1, S2. Regular rate and rhythm. ABDOMEN: Soft. No tenderness. LABS: Hemoglobin 8.6, white count 5.9 with a BUN of 9, creatinine 0.69. DIAGNOSTIC IMPRESSION AND PLAN: Patient with acute complicated sigmoid diverticulitis, colovesical fistula. Urine culture with Enterococcus faecium. The patient is currently covered with Zosyn and daptomycin; to continue while monitoring his clinical course closely. Continue with supportive care. MMODL / IJN: [id number] /
[2018-09-15 22:25] LABS: Glucose,Whole Blood 127 mg/dL (75-99)
[2018-09-16 02:03] LABS: Glucose,Whole Blood 84 mg/dL (75-99)
[2018-09-16] MEDS: INSULIN ASPART (NovoLOG) 100 UNIT/ML VIAL SQ SCH ×4 (04:31→18:59)
[2018-09-16 07:40] LABS: Glucose,Whole Blood 79 mg/dL (75-99)
[2018-09-16] MEDS: THIAMINE 100 MG TAB PO SCH ×2 (08:08→17:34)
[2018-09-16] MEDS: HEPARIN SODIUM,PORCINE 5,000 UNIT/ML 1 ML VIAL SQ SCH ×2 (08:08→11:54)
[2018-09-16] MEDS: FAMOTIDINE 20 MG TAB PO SCH (08:08)
[2018-09-16] MEDS: MULTIVITAMINS, THERA 1 EACH TAB PO SCH (08:08)
--- NOTE | 2018-09-16 08:08 | XR ---
EXAMINATION TYPE: XR chest 1V portable DATE OF EXAM: 09/16/2018 COMPARISON: 09/13/2018 HISTORY: Morning follow-up exam. TECHNIQUE: Single frontal view of the chest is obtained. FINDINGS: There is improved aeration of the left lung with patchy left basilar airspace disease oneal ining. There is a small layering left pleural effusion that is similar to the prior and very trace ri ght pleural effusion. Minimal right basilar atelectasis and underlying COPD change is stable. Cardia mediastinal silhouette is also stable and there is generalized osseous demineralization. IMPRESSION: Improving left basilar consolidation and stable small left pleural effusion as well as t race right pleural effusion.
[2018-09-16] MEDS: predniSONE 10 MG TAB PO SCH (08:09)
[2018-09-16] MEDS ORDERED: PROPOFOL 10 MG/ML 20 ML VIAL IV ONE ×2 (08:42→12:04)
[2018-09-16] MEDS ORDERED: SODIUM CHLORIDE 0.9% 500 ML 500 ML IV ONE ×2 (08:48→18:54)
--- NOTE | 2018-09-16 09:00 | P.OP ---
Date of Procedure: 09/16/18 Preoperative Diagnosis: Colovesical fistula Diverticulitis Postoperative Diagnosis: Colonoscopy Valenzuela Diverticulitis Procedure(s) Performed: Colonoscopy Anesthesia: MAC Surgeon: Trevon Francis Pathology: none sent Condition: stable Disposition: PACU Description of Procedure: The patient's placed on the endoscopy table in the lateral position. She he received IV sedation. Digital rectal exam was performed which revealed a few external hemorrhoids. The flexible colonoscope was then placed patient anus and passed into the rectum. The scope was then placed into the sigmoid colon. The colon was quite tortuous. The scope could not be advanced into the proximal sigmoid. Patient has history of peritoneal is a colonoscopy initial. At this point decided to withdraw the scope. The rectum appeared normal. Scope was withdrawn for patient.
[2018-09-16] MEDS: PIPERACILLIN-TAZOBACTAM 3.375 GM in SODIUM CHLORIDE 0.9% 100 ML IVPB SCH ×2 (10:22→17:34)
[2018-09-16] MEDS: SODIUM CHLORIDE 0.9% 1,000 ML IV SCH ×3 (10:24→12:08)
--- NOTE | 2018-09-16 10:48 | P.PN ---
Progress Note - Text Progress Note Date: 09/16/18 The patient had a colonoscopy today. The colonoscope could not be advanced beyond the sigmoid colon secondary to inflammatory changes of the bowel and his colovesical fistula. Patient will undergo diverging colostomy today.
--- NOTE | 2018-09-16 11:16 | P.PN ---
Subjective This is a pleasant 73 years old male with past medical history of anemia, alcohol abuse, cigarette smoker, malnutrition. Patient states that he came to the hospital because he fell on 1919 2 PM, when he felt backwards and he hit his head. After that he was lying on the floor without losing consciousness, no dizziness or syncope prior or after the fall. He thinks that his room made Kiran or his daughter called EMS for him. Patient denies headache. No chest pain or dyspnea. He states that he has chronic cough with phlegm. No chest pain or abdominal pain. No nausea vomiting. No change in urine or bowel habits. No fever. He's not sure about his walking and how was he do one prior to fall. Patient is afebrile, blood pressure 102/73, heart rate 68, respiratory rate 21, is saturating 88% on room air. His CBC showed normal WBC, hemoglobin 9.4. Platelet 439. Electrolytes showing sodium 134, potassium 2.5, went up to 4.9. Creatinine 0.8. Glucose 115. Liver enzymes elevated rate low albumin at 2.5. TSH 3.1. CAT scan of the head showing cerebral atrophy, CT of the cervical spine showing no fracture as per radiologist. Patient has already been started on CIWA protocol. Patient admitted to the intensive care unit upon admission 09/08/2018 Patient remains in the ICU for alcohol withdrawal on CIWA protocol., Yesterday evening patient got hypoxic while he is getting the Ativan. Chest x-ray was obtained which was suspicious for COPD/pneumonia. There was concern for aspiration pneumonia. Pulmonary team was been called to evaluate the patient. Right femoral line was placed, Plata catheter with turbid urine was placed. Urinalysis was suspicious for infection. Patient was started on Zosyn. Urine culture is pending. Currently patient is saturating 97% on 6 L oxygen nasal cannula. Blood pressure is 97/54, his currently on normal saline and 1 25 mL/h. Has expiratory wheezing, Steroids is added. labs showing WBC of 10.4 K, hemoglobin 8.7. Potassium 3.3 and magnesium 2.0. Liver enzymes not elevated. 09/09/2018 Patient still generally weak although a slightly improving. He remains on CIWA protocol. He is breathing quietly however is saturating 97% on 4 L oxygen via nasal cannula. Afebrile. With no leukocytosis. Repeat chest x-ray: Bibasilar infiltrates with a small effusion. Patient remains on Zosyn for possible aspiration pneumonia and urinary tract infection. However urine culture is negative. He got Lasix yesterday. Patient on steroids for possible COPD competent. 09/10/2018 patient is seen today in the ICU. He is more awake and alert and less lethargic. The bed to chair. His breathing is better but still tachypneic. He is on 4 L oxygen today. He is afebrile. Labs from today are unremarkable including CBC and BMP. Sugar is controlled. Magnesium is 2.2. Chest x-ray: Persistent right perihilar and left basilar infiltrates. We are his steroids. He remains on antibiotics. Pulmonary input is appreciated and they are following the patient closely 09/11/2018 Patient is seen today in the general medical floor at [facility]. He was transferred out of the ICU. Patient is sitting bit more awake and alert. He is calm. Not in respiratory distress. However he still generally weak and he has a swelling in his legs and scrotum. He got 1 dose of Lasix. Or coughing, he says he comes occasionally but he says his breathing is improving. Patient with no dyspnea while at rest. We will check echocardiogram for his leg swelling. No signs symptoms of local withdrawal and his mentation is intact today. Vitals are stable. He is saturating 93% on 4 L oxygen via NC. WBC is 10.8 K, which is mildly increased. Cultures so far are negative Hemoglobin 8.0. Repeat UA still s showing infection. We will order renal ultrasound 09/12/2018 pt was send back to the ICU last night for he had stool in his urine with some resp difficulty , repeat CT of chest and abd, did not show fistula in the UB but has moderate right side pleural effusion , pt got thoracocentasis today and abou 1.2 L of greenish yellow fluid was drained , specimen was sent for cutlture, pt remians on zosyn . urologist recommended CT pelvis cystogram: enterovesical fistula, plata catheter draining clear urine for now , we will keep plata catheter. 09/13/2018 Patient is to the general medical floor today. He still feels generally weak. His breathing is much better as per patient. Repeat chest x-ray: Improved left infiltrate.. No pneumothorax. Patient has enterovesical fistula. But no urinary symptoms and abdominal exam is soft. His currently on Zosyn. And urological team are following the patient 09/14/2018 pt is in general medical floor, his breathing is stable , no chest or abd pain , he is fully awake but severely generally weak , he has several medical problems going on , including alcohol abuse history , alcohol withdrawal, chest infection and fluid which was drained and entero-vesical fistula and de-conditioning, diverticulitis and UTI, infectious disease input is appreciated , stop vancomycin and start daptomycin and continue with zosyn , pt is possibly going for colonoscopy tomorrow with the surgical team , also pt has hypoglycemia from malnutrition and extensive history of alcoholism although he is not on diabetic medication , discussed the case with the rug repairer who will evaluate him today 09/15/2018 Patient is breathing is stable. He denies abdominal pain. No nausea or vomiting. He is hemodynamically stable. leukocytosis. Hemoglobin is 8.6. BMP is unremarkable. Sugar is controlled. Iron study showing anemia of chronic disease. B12 is 508, and folate 19.2. Infectious disease saw the patient and they switch his antibiotics to daptomycin and Zosyn. Patient possibly going for colonoscopy tomorrow. 09/16/2018 patient lying in bed, with no respiratory distress, no chest pain or abdominal pain, is fully awake. He had colonoscopy todaywhich could not be advanced beyond the sigid colon secondary to inflammatory changes of the bowel and call of the cycle fistula as per surgeons.we will discuss with surgeons about their next step whether the patient is going to need surgery or not. Patient remains to have Plata catheter with clear urine draining Objective - Vital Signs Vital signs: Vital Signs Temp 97.8 F 09/16/18 10:55 Pulse 89 09/16/18 10:55 Resp 16 09/16/18 10:55 BP 122/70 09/16/18 10:55 Pulse Ox 97 09/16/18 10:55 Intake & Output 09/15/18 09/16/18 09/16/18 18:59 06:59 18:59 Intake Total 900 240 Output Total 3250 1300 Balance -2350 -1060 Intake: Oral 900 240 Output: Urine 3250 1300 Other: Voiding Method Indwelling Catheter Indwelling Catheter Indwelling Catheter # Voids 1 # Bowel Movements 1 1 - Exam -GENERAL: The patient is alert and oriented x3, not in any acute distress. He is weak and lethargic. he is malnourished. HEENT: Pupils are round and equally reacting to light. EOMI. No scleral icterus. No conjunctival pallor. Normocephalic, atraumatic. No pharyngeal erythema. No thyromegaly. CARDIOVASCULAR: S1 and S2 present. No murmurs, rubs, or gallops. PULMONARY: Chest is clear to auscultation, no wheezing or crackles. -ABDOMEN: Soft, nontender, nondistended, normoactive bowel sounds. No palpable organomegaly. Has Plata catheter in a Place. He has right femoral central line MUSCULOSKELETAL: No joint swelling or deformity. EXTREMITIES: No cyanosis, clubbing, or pedal edema. NEUROLOGICAL: Gross neurological examination did not reveal any focal deficits. SKIN: No rashes. - Labs CBC & Chem 7: 09/15/18 10:01 09/15/18 10:01 Labs: Abnormal Lab Results - Last 24 Hours (Table) 09/15/18 09/15/18 09/15/18 Range/Units 10:01 10:01 16:52 RBC 2.60 L (4.30-5.90) m/uL Hgb 8.6 L (13.0-17.5) gm/dL Hct 29.4 L (39.0-53.0) % MCV 113.1 H (80.0-100.0) fL MCHC 29.3 L (31.0-37.0) g/dL RDW 16.1 H (11.5-15.5) % Plt Count 529 H (150-450) k/uL Macrocytosis Marked A POC Glucose (mg/dL) 112 H (75-99) mg/dL TIBC 218 L (228-460) ug/dL 09/15/18 09/15/18 Range/Units 19:57 22:23 RBC (4.30-5.90) m/uL Hgb (13.0-17.5) gm/dL Hct (39.0-53.0) % MCV (80.0-100.0) fL MCHC (31.0-37.0) g/dL RDW (11.5-15.5) % Plt Count (150-450) k/uL Macrocytosis POC Glucose (mg/dL) 136 H 127 H (75-99) mg/dL TIBC (228-460) ug/dL Microbiology - Last 24 Hours (Table) 09/12/18 13:26 Gram Stain - Preliminary Pleural Fluid Body Fluid Culture - Preliminary Assessment and Plan Assessment: enterovesical fistula diverticulitis uti , complicated Fall Alcohol withdrawal, with delirium tremens Acute hypoxic respiratory failure Possible aspiration pneumonia Acute COPD exacerbation Dehydration and hypovolemia. Hypokalemia Alcohol abuse Nicotine dependence Anemia calories-protein malnutrition Plan: This is a pleasant 73 years old male who presents because of alcohol withdrawal and fall found to have COPD exacerbation/pneumonia, UTI. Pulmonary/critical care team input is appreciated. Continue with antibiotics and IV fluids., . Continue with CIWA protocol. Continue with vitamins. Continue with gentle hydration. Replace electrolytes and monitors them. follow-up culture results Labs and medication were reviewed.. Continue same treatment. Continue with symptomatic treatment. Resume home medication. Monitor lytes and vitals. DVT and GI prophylaxis. Further recommendations of the clinical course of the patie nt DVT prophylaxis: Subcutaneous heparin GI Prophylaxis: Pepcid PT/OT: Pending Prognosis is guarded
[2018-09-16] MEDS ORDERED: GLYCOPYRROLATE 0.2 MG/ML 2 ML VIAL ONE (12:04)
[2018-09-16] MEDS ORDERED: SUCCINYLCHOLINE CHLORIDE 100 MG/5 ML SYR IV ONE (12:04)
[2018-09-16] MEDS ORDERED: fentaNYL (PF) 50 MCG/ML 2 ML AMP ONE (12:04)
[2018-09-16] MEDS ORDERED: LIDOCAINE 1% INJ 10MG/ML (20 ML MDV) ONE (12:04)
[2018-09-16] MEDS ORDERED: ePHEDrine SULFATE/0.9% NACL/PF 50 MG/5 ML SYRINGE IV ONE (12:04)
[2018-09-16] MEDS ORDERED: NEOSTIGMINE 1 MG/ML 10 ML VIAL ONE (12:04)
[2018-09-16] MEDS ORDERED: LACTATED RINGERS 1,000 ML IV ONE (12:30)
--- NOTE | 2018-09-16 12:52 | P.OP ---
Date of Procedure: 09/16/18 Preoperative Diagnosis: Diverticulitis Colovesical fistula Postoperative Diagnosis: Reticularis Colovesical fistula Procedure(s) Performed: Diverting colostomy Anesthesia: JANNET Surgeon: Trevon Francis Estimated Blood Loss (ml): 20 Condition: stable Disposition: PACU Indications for Procedure: Colovesical fistula Description of Procedure: Patient's placed on the operative table in supine position. He received general endotracheal tube anesthesia. His abdomen was prepped and draped usual fashion. The area was entered through midline incision. Upon and the abdomen there was a large amount of the inflammatory changes seen in the sigmoid colon and bladder. The patient had significant diverticular changes. At this point to the descending colon was transected using the GI stapler. And then the white line of Toldt was mobilized. The mesentery was divided with the Enseal device. A suitable spot for the colostomy was chosen on the anterior abdominal wall. The colostomy site was created by using an 11 blade to incise the skin. Using electrocautery cautery the subcutaneous tissues and fascia were dissected. The colostomy was brought up into the wound. The fascia was closed loop #1 PDS suture. Skin was closed mart. The colostomy then matured with 3-0 Vicryl.
[2018-09-16] MEDS ORDERED: SODIUM CHLORIDE 0.9% 1,000 ML IV ONE (13:11)
[2018-09-16] MEDS ORDERED: LABETALOL 5 MG/ML VIAL MDV IV ONE ×2 (13:15→14:20)
[2018-09-16 13:44] LABS: Glucose,Whole Blood 145 mg/dL (75-99)
[2018-09-16] MEDS ORDERED: NALOXONE 0.4 MG/ML 1 ML VIAL IV ONE (14:00)
[2018-09-16 14:44] LABS: Basophils % (A) 0 %; Eosinophils # (A) 0.1 k/uL (0-0.7); Eosinophils % (A) 1 %; HCT 29.7 % (39.0-53.0); HGB 8.9 gm/dL (13.0-17.5); Hypochromasia Moderate; Lymphocytes # (A) 0.8 k/uL (1.0-4.8); Lymphocytes % (A) 11 %; MCH 33.4 pg (25.0-35.0); MCHC 29.9 g/dL (31.0-37.0); MCV 111.8 fL (80.0-100.0); Macrocytosis Marked; Mean Platelet Volume 6.8; Monocytes # (A) 0.3 k/uL (0-1.0); Monocytes % (A) 4 %; Neutrophils # (A) 5.6 k/uL (1.3-7.7); Neutrophils % (A) 83 %; Platelet Count 597 k/uL (150-450); RBC 2.66 m/uL (4.30-5.90); WBC 6.7 k/uL (3.8-10.6)
[2018-09-16 15:07] LABS: ALT 35 U/L (21-72); AST 48 U/L (17-59); African American GFR (CKD) >90 (>60 ml/min/1.73 sqM); Albumin 2.2 g/dL (3.5-5.0); Alkaline Phosphatase 76 U/L (38-126); Anion Gap 2 mmol/L; Blood Urea Nitrogen 6 mg/dL (9-20); Calcium 7.4 mg/dL (8.4-10.2); Carbon Dioxide 29 mmol/L (22-30); Chloride 106 mmol/L (98-107); Glucose 127 mg/dL (74-99); Sodium 137 mmol/L (137-145); Total Bilirubin 0.4 mg/dL (0.2-1.3); Total Protein 4.7 g/dL (6.3-8.2)
[2018-09-16 15:12] LABS: Polychromasia Present
--- NOTE | 2018-09-16 15:16 | CT ---
EXAMINATION TYPE: CT brain wo con DATE OF EXAM: 09/16/2018 COMPARISON: 09/06/2018 HISTORY: abnormal LOC post op. Head pain. CT DLP: 1158.4 mGycm Automated exposure control for dose reduction was used. TECHNIQUE: CT scan of the head is performed without contrast. FINDINGS: There is no acute intracranial hemorrhage or midline shift identified. There is diffuse v entricular and sulcal prominence consistent with diffuse age-related cerebral atrophy. No suspicious extra-axial fluid collection. Incidentally noted lauren cisterna magna. There is low-attenuation in the periventricular white matter consistent with chronic small vessel ischemic change. The globes are i ntact. Moderate mucosal thickening is seen within the right maxillary sinus with severe left maxillar y sinus mucosal thickening, atrophy, and chronic mucoperiosteal thickening that is left greater than right. Mild mucosal thickening of the ethmoid sinuses and chronic mucoperiosteal thickening of the fr ontal sinuses are also seen. Inspissated secretions are noted with air-fluid level layering in the sp henoid sinus. There is diffuse osseous demineralization of the calvarium. IMPRESSION: 1. No acute intracranial hemorrhage, midline shift or mass effect. 2. Diffuse mucoperiosteal thickening indicative of chronic sinusitis. Acute superimposed component is also seen. 3. Diffuse age-related cerebral atrophy and moderate nonspecific white matter change, likely on the b asis of chronic microangiopathy.
[2018-09-16] MEDS: PROPOFOL 1,000 MG in EMPTY BAG 1 BAG IV SCH (15:30)
--- NOTE | 2018-09-16 15:33 | XR ---
EXAMINATION TYPE: XR chest 1V portable DATE OF EXAM: 09/16/2018 COMPARISON: 09/16/2018 HISTORY: Post intubation imaging TECHNIQUE: Single frontal view of the chest is obtained. FINDINGS: There is a small layering left pleural effusion with increasing opacity at the left midlun g. Multiple well-circumscribed granulomas are again noted. Slight haziness of the right lung base sug gest minimal atelectasis. There is diffuse osseous demineralization. Endotracheal tube has been place d terminating approximately 6.5 cm from the jaxon. This appears satisfactory although could be advan faheem approximately 3 cm for optimal placement. Enteric tube has its fenestrated portion beyond the gas troesophageal junction, properly placed. Cardiomediastinal silhouette is within normal limits. IMPRESSION: Redistribution of a similar volume left pleural effusion and multifocal bibasilar atelec tasis with underlying COPD. 2. Interval insertion of the enteric tube appears appropriately placed L2 terminating 6.5 cm from the jaxon. This could be advanced approximately 3 cm for optimal placement.
[2018-09-16 15:37] LABS: ABG Base Excess 5.1 mmol/L; ABG HCO3 30 mmol/L (21-25); ABG PCO2 46 mmHg (35-45); ABG PH 7.42 (7.35-7.45); ABG PO2 367 mmHg (83-108); ABG TCO2 31 mmol/L (19-24); Allen Test Performed? Yes
[2018-09-16 15:41] LABS: Glucose,Whole Blood 104 mg/dL (75-99)
--- NOTE | 2018-09-16 17:51 | CT ---
EXAMINATION TYPE: CODE STROKE: CTA head neck DATE OF EXAM: 09/16/2018 HISTORY: Weakness, assess for stroke. COMPARISON: CT DLP: 419.3 mGycm. Automated Exposure Control for Dose Reduction was Utilized. TECHNIQUE: CTA scan of the neck is performed with IV Contrast, patient injected with 50 mL of Isovue 370, axial images are obtained, coronal and sagittal reformatted images are reviewed. Three-D recons tructed images are created on an independent workstation and reviewed. FINDINGS: There is normal branching pattern of the great vessels on the aortic arch. There is bilateral arteria l flow in the subclavian arteries. There is arterial flow in the common internal and external carotid arteries bilaterally. There is plaque formation at the carotid artery bifurcations and lumen narrowi ng estimated less than 25% of the proximal internal carotid arteries. There is arterial flow in both vertebral arteries which are fairly symmetric. There is arterial flow in the vertebrobasilar artery s ystem. There is arterial flow in the anterior middle and posterior cerebral arteries. There is arterial flow in the vertebrobasilar artery system. There is normal contrast opacification of the venous sinuses. There is no mass effect. There is no evidence of intracranial aneurysm or neovascularity. I see no si gn of intracranial hemodynamic stenosis. There is fluid level right side sphenoid sinus. I see no bon y destructive process. IMPRESSION: Mild atherosclerotic disease involving the carotid artery bifurcations. No evidence of hemodynamic st enosis. Negative CT angiogram of the brain. Mild right-sided sphenoid sinusitis.
--- NOTE | 2018-09-16 18:25 | P.PN ---
Subjective Progress Note Date: 09/16/18 Principal diagnosis: status post diverging colostomy postoperative day #0. This is a 73-year-old white male patient with history of chronic alcoholism, chronic smoker, chronic anemia, previous pneumonia, malnutrition related to history of alcoholism, was in to the hospital on 09/06/2018 for evaluation of falls at home. Patient was brought in by an ambulance, and reportedly he tripped while walking and fell backwards hitting back of his head on the fridge. There was no loss of consciousness at the time of the incident, and patient's daughter called the ambulance with the patient for evaluation. The patient was drinking prior to the incident. He denies any headaches, lightheadedness, dizziness, denied any vision changes, no nausea vomiting or diarrhea. Not on any blood thinners. CT of the head and cervical spine was completed and showed moderate cerebral atrophy, no acute intracranial abnormality and mild spondylosis at C6 and 7 no acute fractures were seen. He was kept overnight in the emergency department, he was started on CIWA protocol for acute alcohol withdrawal syndrome. Lab work was completed in the emergency department and showed a white blood cell count of 6.1, hemoglobin of 9.4, sodium was 134, potassium is 2.5 and this was replaced per protocol, chloride was 94, CO2 is 31, BUN was 13 creatinine was 0.87, AST is 31, ALT was 20, alkaline phosphatase was 147, proBNP was 525. Patient was noted to have decreased oxygenation, decreased sats, after Ativan was given proceed with protocol. His decreased air movement auscultated on the left side, he was placed on 100% nonrebreather and his pulse ox is 88-89%, chest x-ray was obtained, showing stable left-sided consolidation and pleural effusion, hemodynamically related to aspiration pneumonia and asymmetric pulmonary edema. She was started on breathing treatments, antibiotics in the form of Zosyn, and is admitted to the intensive care unit for closer monitoring. She was given IV hydration in the emergency department with a liter bolus, and maintenance IV is 0.9 normal saline at a rate of 50 ML per hour. During my evaluation patient is quite lethargic, but opens eyes to verbal stimuli, and he is quite confused, he is only oriented to person, and he thinks he is in [place], he remains on 100% nonrebreather his current pulse ox is 90-92%, hemodynamically stable, blood pressure is 112/86, afebrile. on today's evaluation of 09/08/2018, the patient was seen quite awake and alert this morning. There has been improvement in the mental status since yesterday. Overnight, the patient was brought into the intensive care because of an aspiration. Significant diminished breath sounds in the left lung base along with some volume loss in the chest x-ray. He was placed on on the percent nonrebreather facemask. He was given aggressive chest PT. He was kept nothing by mouth. Overnight he improved and earlier this morning he was weaned down to 6 L about 2 by nasal cannula and he was able to maintain a saturation above 90%. His breathing was not labored. He had a congested cough. Unable to bring up much sputum. The cough strength has improved compared to yesterday. He has no signs of any agitation. In fact neurologically seemed to do much more alert and awake and following commands and responding to questions. Later on by early afternoon, the patient became more confused and restless. At that point we implemented this CIWA protocol and the patient was given Ativan which controlled his been eating. The patient is currently on antibiotics. The patient on IV Zosyn. The chest x-ray from today shows showed volume loss in the right lung base along with development of bilateral pleural effusion. Based on all this, I kept on the IV fluids to KVO. I gave the patient dose of Lasix 40 mg IV push and following that the patient producing adequate amount of urine output in the order of 750 mL. He remains in oxygen by nasal cannula at 6 L. Significant leukocytosis. Hemoglobin stable at 8.7. Function is stable. No other significant events otherwise for now. The main concern for now is his concern for pneumonia, respiratory failure and early a.m. His cough and mechanism has improved although it remains quite weak and somewhat ineffective and performing adequate pulmonary toileting. On 09/09/2018, the patient remains quite lethargic yet arousable. Chest x-ray still showing bilateral basal infiltrate and small better pleural effusion. His cough and presented to bring up much of sputum and his cough is weak. He is receiving PT. He is on 40% oxygen nasal cannula and his pulse is now 94%. I think that there is some aspiration related mucous plugs which the patient is unable to cough out. Nevertheless, despite his x-ray findings, he still breathing comfortably on 4 L of oxygen nasal cannula. No chest pain. No hemoptysis. No pleurisy. No agitation. He is breathing is nonlabored. He is receiving IV Zosyn. He is on IV Solu Medrol 40 mg every 8 hours. He is on DuoNeb nebulized treatments around the clock. His ammonia level is less than 9. On 09/10/2018, the patient is doing progress. He seems to be more awake. Is a ble to cough more effectively. His FiO2 has improved and is down to 40s about 2 by nasal cannula. His breathing is nonlabored. Chest x-ray showing bilateral consolidation lower lobe effusions. No chest pain. No aspiration. Is tolerating his diet is on DuoNeb nebulized treatment [id number]-[id number] is on IV Solu-Medrol. He is on IV Zosyn. He is able to sit up on a chair. He remains quite weak and lethargic yet interactive and more talkative and communicating compared to yesterday. No focal neurological deficits for now. His urine remains quite cloudy and there is significant amount of sediment. The previously sent culture was contaminant and for that reason we sent another UA and urine culture. UA came back positive for white cells along with few clumps and there was occasional bacteria. There was also some crystals. Cultures are still pending for now. The patient is still on IV Zosyn. No seizure activity. No visual or auditory hallucinations on today's evaluation. On 09/11/2018, the patient is being seen in the medical floor. He is doing well. No significant complaints for now. He seems to much more alert and awake. No hallucinations. No delusions. No tremors. No altered mentation. Echocardiogram is to be done today. No significant respiratory distress. Currently he is on 4 L of oxygen nasal cannula. He was diuresed with IV Lasix and the dose of Lasix was given to him overnight. He is on a IV Solu Medrol which will be tapered down to prednisone burst taper. He is tolerating his diet. No nausea. No vomiting. Urine culture is still pending for now. Meanwhile, the patient does not show any signs of septicemia. He remains on IV Zosyn. On 09/12/2018, the patient got transferred back to the intensive care unit. Overnight the patient became more short of breath, lethargic, hypoxic, and he was found to have significant abdominal distention. I recommended an NG tube placement. Following that, the patient was sent for a CAT scan of the chest and abdomen and it showed emphysema, bilateral multifocal pneumonia, bilateral pleural effusion right more than left, and no acute intra-abdominal findings. NG tube was removed 9 GERD output was minimal. The patient this morning is feeling much better. His lactic acid levels are improving. He has no chest pain. No minutes cough without any significant sputum production. He was given a dose of Lasix following which produced excellent urine output. He has a Benedict catheter in place. The urine quality has improved symptomatically at this point in time nontender this was very cloudy and purulent. Cultures of been negative. The patient remains on IV Zosyn. Right-sided thoracentesis is being considered for now. On 09/13/2018, the patient is doing well. No respiratory distress. I performed a thoracentesis on him yesterday and total of 1 L of pleural fluid was aspirated from the right lung. Chest x-ray from today shows a small amount of effusion the left. He is swallowing well. No aspiration or sputum production. No respiratory distress. He is on 40s about 2 by nasal cannula. Meanwhile, the Benedict cath is in place. The urine output for now is quite clean. 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 This explains the constant abnormalities in the urine analysis is worsening in this patient. He remains on IV Zosyn. Gen. surgery has been consulted regarding a fistulous connection between the bladder and the sigmoid colon. No abdominal pain. No signs of any septicemia for the time being. Benedict catheter will be kept in place. On 09/06/2018 patient seen in follow-up on medical surgical floor. is resting comfortably in bed, in no acute distress, he is awake, alert to person, place, disoriented to time, but he knew who the president was. afebrile, hemodynamically stable, denies any difficulty breathing, lung sounds are reveal diffuse wheezes,patient is on oral prednisone, Zosyn for antibiotic coverage. No signs of DTs.his labs have been reviewed and showed white blood cell count is 5.7, hemoglobin is 7.6, serum phosphorus was 3.7, magnesium was 2.3. BMP was not done. On 09/15/2018 patient is seen in follow-up on medical surgical floor. Patient is resting in bed, he denies any acute distress, lung sounds are positive for a few scattered rales and wheezes, Nonproductive Cough. No signs of DTs. No complaints of worsening dyspnea, chest pain, cough or congestion. Remains on oral prednisone, Zosyn and Daptomycin for antibiotic coverage, patient is scheduled for colonoscopy sometime tomorrow. Benedict catheter remains in place and is draining clear yellow urine. His labs have been reviewed serum sodium is 1.36, potassium is 4.3, chloride is 100, CO2 is 35, BUN is 9 creatinine 0.69. 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 Patient was extubated initially in the or, however did not tolerate the extubation, ended up reintubated, sent back to the ICU on mechanical ventilation. Presently the patient is in the ICU on mechanical ventilation. And his ventilator settings are tidal volume of 500, assist control rate of 12, FiO2 was cut down from 100% to 40%, and PEEP at 5.ABG on on the percent showed a pO2 of 367 pCO2 of 46, and pH of 7.42. Patient was noted to have low blood pressure, hence I recommended a fluid bolus of 500 mL of 0.9 normal saline, recommended cutting down on his propofol, and if needed to start the patient on norepinephrine. Chest x-ray postoperatively showedhigh placement of the endotracheal tube, hence recommended advancement of the endotracheal tube by to see him. There was evidence of small left-sided pleural effusion and atelectasis, and findings consistent with COPD.all labs from earlier today were reviewed, he had a relatively normal electrolytes and the relatively normal CBC.hemoglobin was noted to be 8.9 earlier.shortly after he arrived to the ICU, patient was noted to have some left-sided weakness, and possibility of CVA was entertained. Hence CT of the brainwas done, it showed no acute intracranial hemorrhage no midline shift or mass effect there was evidence of diffuse mucoperiosteal thickening consistent with chronic sinusitis. And there was age related atrophy and nonspecific. Ne urology was consulted regarding his new change in neurological status. CT angiogram of the brain was also ordered and relatively unremarkable. Objective - Vital Signs Vital signs: Vital Signs Temp 97.3 F L 09/16/18 12:56 Pulse 92 09/16/18 13:15 Resp 12 09/16/18 15:00 BP 170/119 09/16/18 15:00 Pulse Ox 100 09/16/18 15:00 Intake & Output 09/15/18 09/16/18 09/16/18 18:59 06:59 18:59 Intake Total 277 591 9077.247 Output Total 3250 1300 1130 Balance -2350 -1060 482.247 Weight 64.8 kg Intake: IV 1600 Intake, IV Titration 12.247 Amount Propofol 1,000 mg In 12.247 Empty Bag 1 bag @ Titrate IV .Q0M SANYD Rx#: [id number] Oral 900 240 Output: Urine 3250 1300 1100 Estimated Blood Loss 30 Other: Voiding Method Indwelling Catheter Indwelling Catheter Indwelling Catheter # Voids 1 # Bowel Movements 1 1 ABP, PAP, CO, CI - Last Documented Arterial Blood Pressure 187/91 - Exam GENERAL EXAM: revealed 73-year-old white male mechanically ventilated, sedated, in no distress. HEENT: PERRLA, EOMI, endotracheal tube is intact, no neck masses, no JVD. CHEST: No chest wall deformity. Symmetrical expansion. LUNGS: minimal fine crackles at the bases, no rhonchi and no wheezes. CVS: Regular rate and rhythm, normal S1 and S2, no gallops, no murmurs, no rubs ABDOMEN: postsurgical, surgical dressings seems to be clean and dry, colostomy is intact.Soft, nontender. No hepatosplenomegaly, normal bowel sounds, no guarding or rigidity. EXTREMITIES: No clubbing, no edema, no cyanosis, 2+ pulses and upper and lower extremities SKIN: No rashes CENTRAL NERVOUS SYSTEM:arousable, however he seems to have left-sided weakness including weakness in the left upper extremity and left lower extremity, follows instructions when arousable. PSYCHIATRIC: sedated, calm, difficult to assess mental status. But he does follow instructions. - Labs CBC & Chem 7: 09/16/18 14:20 09/16/18 14:20 Labs: Abnormal Lab Results - Last 24 Hours (Table) 09/15/18 09/15/1809/16/19 Range/Units 19:57 22:23 13:42 RBC (4.30-5.90) m/uL Hgb (13.0-17.5) gm/dL Hct (39.0-53.0) % MCV (80.0-100.0) fL MCHC (31.0-37.0) g/dL RDW (11.5-15.5) % Plt Count (150-450) k/uL Lymphocytes # (1.0-4.8) k/uL Macrocytosis ABG pCO2 (35-45) mmHg ABG pO2 (83-108) mmHg ABG HCO3 (21-25) mmol/L ABG Total CO2 (19-24) mmol/L ABG O2 Saturation (94-97) % BUN (9-20) mg/dL Creatinine (0.66-1.25) mg/dL Glucose (74-99) mg/dL POC Glucose (mg/dL) 136 H 127 H 145 H (75-99) mg/dL Calcium (8.4-10.2) mg/dL Phosphorus (2.5-4.5) mg/dL Troponin I (0.000-0.034) ng/mL Total Protein (6.3-8.2) g/dL Albumin (3.5-5.0) g/dL 09/16/18 09/16/18 09/16/18 Range/Units 14:20 14:20 14:20 RBC 2.66 L (4.30-5.90) m/uL Hgb 8.9 L (13.0-17.5) gm/dL Hct 29.7 L (39.0-53.0) % MCV 111.8 H (80.0-100.0) fL MCHC 29.9 L (31.0-37.0) g/dL RDW 16.0 H (11.5-15.5) % Plt Count 597 H (150-450) k/uL Lymphocytes # 0.8 L (1.0-4.8) k/uL Macrocytosis Marked A ABG pCO2 (35-45) mmHg ABG pO2 (83-108) mmHg ABG HCO3 (21-25) mmol/L ABG Total CO2 (19-24) mmol/L ABG O2 Saturation (94-97) % BUN 6 L (9-20) mg/dL Creatinine 0.58 L (0.66-1.25) mg/dL Glucose 127 H (74-99) mg/dL POC Glucose (mg/dL) (75-99) mg/dL Calcium 7.4 L (8.4-10.2) mg/dL Phosphorus (2.5-4.5) mg/dL Troponin I 0.049 H* (0.000-0.034) ng/mL Total Protein 4.7 L (6.3-8.2) g/dL Albumin 2.2 L (3.5-5.0) g/dL 09/16/18 09/16/18 09/16/18 Range/Units 14:20 15:03 15:28 RBC (4.30-5.90) m/uL Hgb (13.0-17.5) gm/dL Hct (39.0-53.0) % MCV (80.0-100.0) fL MCHC (31.0-37.0) g/dL RDW (11.5-15.5) % Plt Count (150-450) k/uL Lymphocytes # (1.0-4.8) k/uL Macrocytosis ABG pCO2 46 H (35-45) mmHg ABG pO2 367 H (83-108) mmHg ABG HCO3 30 H (21-25) mmol/L ABG Total CO2 31 H (19-24) mmol/L ABG O2 Saturation 98.0 H (94-97) % BUN (9-20) mg/dL Creatinine (0.66-1.25) mg/dL Glucose (74-99) mg/dL POC Glucose (mg/dL) 104 H (75-99) mg/dL Calcium (8.4-10.2) mg/dL Phosphorus 6.0 H (2.5-4.5) mg/dL Troponin I (0.000-0.034) ng/mL Total Protein (6.3-8.2) g/dL Albumin (3.5-5.0) g/dL Microbiology - Last 24 Hours (Table) 09/12/18 13:26 Gram Stain - Preliminary Pleural Fluid Body Fluid Culture - Preliminary Assessment and Plan Assessment: impression: 1 status post diverting colostomy, presently on mechanical ventilation, postoperative day #0. 2: The colovesical fistula, being addressed by surgery on the case, and is status post diverting colostomy. 3 urinary tract infection secondary to enterococcus presently on treatment as per infectious disease on the case. #4. Acute delirium, related to acute alcohol withdrawal syndrome #5. Alcohol intoxication, falls at home, patient fell and hit his head while walking and tripping. CT head and cervical spine did not reveal any acute in tracranial process or acute cervical fractures #6. Electrolyte abnormalities including mild hyponatremia, severe hypokalemia, hypochloremia, and increased CO2, hemodynamically related to patient's chronic alcoholism, poor nutrition, and dehydration #7. Chronic anemia #8. Chronic cigarette smoker #9. Chronic alcoholism with underlying malnutrition #10. Previous episode of pneumonia involving the left lower lobe in 2016 #11. Generalized weakness and debility and malnourishment #12 left-sided weakness, new, being evaluated for possible right hemispheric CVA. Recommendation: Continue ventilatory support, continue antibiotics, GI and DVT prophylaxis, neurology was consulted regarding the new neurological change, CT of the brain was nondiagnostic. hemodynamic support, patient was given fluid boluses for low blood pressure, may require norepinephrine if does not respond to fluid boluses. Obviously the patient is quite ill, we will not address weaning today, will reevaluate in the next 24 hours, and assess whether he is ready to be extubated and that will depend on his overall pulmonary status and neurological status and the next 24 hours. Prognosis is extremely guarded. We'll continue to follow. Critical care time is 35 minutes. Time with Patient: Greater than 30
[2018-09-16] MEDS ORDERED: DEXTROSE 50% SYRINGE 50 ML IVP STA (18:54)
[2018-09-16 19:01] LABS: Glucose,Whole Blood 65 mg/dL (75-99)
[2018-09-16 19:31] LABS: Glucose,Whole Blood 127 mg/dL (75-99)
--- NOTE | 2018-09-16 19:44 | PN ---
PROGRESS NOTE DATE OF SERVICE: 09/16/2018. REASON FOR FOLLOWUP: Complicated diverticulitis with colovesical fistula and Enterococcus faecium UTI. INTERVAL HISTORY: The patient was taken to the OR today. The patient is status post laparotomy with diverting colostomy for diverticulitis and colovesical fistula. The patient had become less responsive, jerome in the postop area and ended up getting reintubated and is being transferred out of the ICU. Here in the ICU, the patient is currently on 100% FiO2. The patient is hemodynamically stable. Not on any pressor support and is unable to provide any history. PHYSICAL EXAMINATION: Blood pressure is currently 187/91, pulse of 56, temperature 97.3. He is 100% on 100% FiO2. General description is an elderly male lying in bed in no distress. Respiratory system: Unlabored breathing. Clear to auscultation anteriorly. Heart S1, S2. Regular rate and rhythm. Abdomen soft, no tenderness. LABS: Hemoglobin 8.8, white count 6.7, BUN of 6, creatinine 0.58. DIAGNOSTIC IMPRESSION AND PLAN: Patient with complicated diverticulitis with colovesical fistula and evidence of Enterococcus faecium UTI. Patient is currently covered with daptomycin and Rocephin to continue while monitoring his clinical course closely. Continue supportive care. MMODL / IJN: [id number] /
[2018-09-16] MEDS: CHLORHEXIDINE GLUCONATE 15 ML CUP MUCOUS MEM SCH (21:13)
[2018-09-16] MEDS: DEXTROSE 5%-0.9% NACL 1,000 ML IV SCH (21:13)
[2018-09-16] MEDS: ASPIRIN 300 MG SUPP RECTAL SCH (21:13)
[2018-09-17] MEDS: PROPOFOL 1,000 MG in EMPTY BAG 1 BAG IV SCH ×2 (00:18→08:14)
[2018-09-17 00:23] LABS: Glucose,Whole Blood 99 mg/dL (75-99)
[2018-09-17] MEDS: PIPERACILLIN-TAZOBACTAM 3.375 GM in SODIUM CHLORIDE 0.9% 100 ML IVPB SCH ×3 (00:28→17:52)
[2018-09-17] MEDS: INSULIN ASPART (NovoLOG) 100 UNIT/ML VIAL SQ SCH ×5 (00:29→20:46)
[2018-09-17] MEDS: DEXTROSE 5%-0.9% NACL 1,000 ML IV SCH ×3 (05:51→20:13)
[2018-09-17 05:57] LABS: Glucose,Whole Blood 117 mg/dL (75-99)
[2018-09-17 05:57] LABS: Anisocytosis Slight; Basophils % (A) 0 %; Eosinophils # (A) 0.1 k/uL (0-0.7); Eosinophils % (A) 2 %; HCT 24.2 % (39.0-53.0); HGB 7.5 gm/dL (13.0-17.5); Hypochromasia Slight; Lymphocytes # (A) 0.7 k/uL (1.0-4.8); Lymphocytes % (A) 10 %; MCH 33.5 pg (25.0-35.0); Macrocytosis Marked; Mean Platelet Volume 7.9; Monocytes # (A) 0.2 k/uL (0-1.0); Monocytes % (A) 3 %; Neutrophils # (A) 5.9 k/uL (1.3-7.7); Neutrophils % (A) 84 %; Platelet Count 451 k/uL (150-450); RBC 2.24 m/uL (4.30-5.90); RDW 16.3 % (11.5-15.5); WBC 7.1 k/uL (3.8-10.6)
[2018-09-17 06:01] LABS: MCV 108.3 fL (80.0-100.0)
[2018-09-17 06:07] LABS: ALT 36 U/L (21-72); AST 22 U/L (17-59); African American GFR (CKD) >90 (>60 ml/min/1.73 sqM); Albumin 1.9 g/dL (3.5-5.0); Alkaline Phosphatase 71 U/L (38-126); Anion Gap -1 mmol/L; Blood Urea Nitrogen 4 mg/dL (9-20); Calcium 7.6 mg/dL (8.4-10.2); Carbon Dioxide 30 mmol/L (22-30); Chloride 107 mmol/L (98-107); Glucose 135 mg/dL (74-99); Phosphorus 3.3 mg/dL (2.5-4.5); Potassium 3.3 mmol/L (3.5-5.1); Sodium 136 mmol/L (137-145); Total Bilirubin 0.2 mg/dL (0.2-1.3); Total Protein 4.1 g/dL (6.3-8.2)
[2018-09-17] MEDS: POTASSIUM BICARBONATE/CIT AC 20 MEQ TABLET.EFF NG-TUBE SCH ×2 (06:33→08:43)
[2018-09-17] MEDS: THIAMINE 100 MG TAB PO SCH ×2 (06:33→17:52)
[2018-09-17 06:58] LABS: ABG Base Excess 8.2 mmol/L; ABG HCO3 31 mmol/L (21-25); ABG PCO2 36 mmHg (35-45); ABG PH 7.55 (7.35-7.45); ABG PO2 166 mmHg (83-108); ABG TCO2 32 mmol/L (19-24); Allen Test Performed? Yes
[2018-09-17] MEDS: IPRATROPIUM-ALBUTEROL 3 ML NEB INHALATION PRN ×4 (08:08→20:10)
--- NOTE | 2018-09-17 08:25 | XR ---
EXAMINATION TYPE: XR chest 1V portable DATE OF EXAM: 09/17/2018 COMPARISON: 09/16/2018 HISTORY: SOB, Follow Up FINDINGS: Appropriately placed endotracheal tube. NG tube seen coursing towards the stomach. No change in perihilar and basilar opacities. Stable appearance of the cardio-mediastinal structures at this time. Pleural effusion unchanged. IMPRESSION: 1. Stable portable chest. Clinical correlation and follow up until resolution is recommended.
[2018-09-17] MEDS: ASPIRIN 300 MG SUPP RECTAL SCH (08:43)
[2018-09-17] MEDS: HEPARIN SODIUM,PORCINE 5,000 UNIT/ML 1 ML VIAL SQ SCH ×2 (08:44→20:12)
[2018-09-17] MEDS: CHLORHEXIDINE GLUCONATE 15 ML CUP MUCOUS MEM SCH (08:44)
[2018-09-17] MEDS: predniSONE 10 MG TAB PO SCH (08:45)
[2018-09-17] MEDS: MULTIVITAMINS, THERA 1 EACH TAB PO SCH (08:45)
[2018-09-17] MEDS: PANTOPRAZOLE 40 MG/10 ML VIAL IVP SCH (08:45)
[2018-09-17 10:27] LABS: ABG Base Excess 7.3 mmol/L; ABG HCO3 31 mmol/L (21-25); ABG Oxygen Saturation 94.9 % (94-97); ABG PCO2 43 mmHg (35-45); ABG PH 7.47 (7.35-7.45); ABG PO2 85 mmHg (83-108); ABG TCO2 32 mmol/L (19-24)
[2018-09-17 10:32] LABS: Allen Test Performed? no
--- NOTE | 2018-09-17 10:45 | P.PN ---
Subjective Progress Note Date: 09/17/18 Principal diagnosis: status post diverging colostomy postoperative day #1 This is a 73-year-old white male patient with history of chronic alcoholism, chronic smoker, chronic anemia, previous pneumonia, malnutrition related to history of alcoholism, was in to the hospital on 09/06/2018 for evaluation of falls at home. Patient was brought in by an ambulance, and reportedly he tripped while walking and fell backwards hitting back of his head on the fridge. There was no loss of consciousness at the time of the incident, and patient's daughter called the ambulance with the patient for evaluation. The patient was drinking prior to the incident. He denies any headaches, lightheadedness, dizziness, denied any vision changes, no nausea vomiting or diarrhea. Not on any blood thinners. CT of the head and cervical spine was completed and showed moderate cerebral atrophy, no acute intracranial abnormality and mild spondylosis at C6 and 7 no acute fractures were seen. He was kept overnight in the emergency department, he was started on CIWA protocol for acute alcohol w ithdrawal syndrome. Lab work was completed in the emergency department and showed a white blood cell count of 6.1, hemoglobin of 9.4, sodium was 134, potassium is 2.5 and this was replaced per protocol, chloride was 94, CO2 is 31, BUN was 13 creatinine was 0.87, AST is 31, ALT was 20, alkaline phosphatase was 147, proBNP was 525. Patient was noted to have decreased oxygenation, decreased sats, after Ativan was given proceed with protocol. His decreased air movement auscultated on the left side, he was placed on 100% nonrebreather and his pulse ox is 88-89%, chest x-ray was obtained, showing stable left-sided consolidation and pleural effusion, hemodynamically related to aspiration pneumonia and asymmetric pulmonary edema. She was started on breathing treatments, antibiotics in the form of Zosyn, and is admitted to the intensive care unit for closer monitoring. She was given IV hydration in the emergency department with a liter bolus, and maintenance IV is 0.9 normal saline at a rate of 50 ML per hour. During my evaluation patient is quite lethargic, but opens eyes to verbal stimuli, and he is quite confused, he is only oriented to person, and he thinks he is in [place], he remains on 100% nonrebreather his current pulse ox is 90-92%, hemodynamically stable, blood pressure is 112/86, afebrile. on today's evaluation of 09/08/2018, the patient was seen quite awake and alert this morning. There has been improvement in the mental status since yesterday. Overnight, the patient was brought into the intensive care because of an aspiration. Significant diminished breath sounds in the left lung base along with some volume loss in the chest x-ray. He was placed on on the percent nonrebreather facemask. He was given aggressive chest PT. He was kept nothing by mouth. Overnight he improved and earlier this morning he was weaned down to 6 L about 2 by nasal cannula and he was able to maintain a saturation above 90%. His breathing was not labored. He had a congested cough. Unable to bring up much sputum. The cough strength has improved compared to yesterday. He has no signs of any agitation. In fact neurologically seemed to do much more alert and awake and following commands and responding to questions. Later on by early afternoon, the patient became more confused and restless. At that point we implemented this CIWA protocol and the patient was given Ativan which controlled his been eating. The patient is currently on antibiotics. The patient on IV Zosyn. The chest x-ray from today shows showed volume loss in the right lung base along with development of bilateral pleural effusion. Based on all this, I kept on the IV fluids to KVO. I gave the patient dose of Lasix 40 mg IV push and following that the patient producing adequate amount of urine output in the order of 750 mL. He remains in oxygen by nasal cannula at 6 L. Significant leukocytosis. Hemoglobin stable at 8.7. Function is stable. No other significant events otherwise for now. The main concern for now is his concern for pneumonia, respiratory failure and early a.m. His cough and mechanism has improved although it remains quite weak and somewhat ineffective and performing adequate pulmonary toileting. On 09/09/2018, the patient remains quite lethargic yet arousable. Chest x-ray still showing bilateral basal infiltrate and small better pleural effusion. His cough and presented to bring up much of sputum and his cough is weak. He is receiving PT. He is on 40% oxygen nasal cannula and his pulse is now 94%. I think that there is some aspiration related mucous plugs which the patient is unable to cough out. Nevertheless, despite his x-ray findings, he still breathing comfortably on 4 L of oxygen nasal cannula. No chest pain. No hemoptysis. No pleurisy. No agitation. He is breathing is nonlabored. He is receiving IV Zosyn. He is on IV Solu Medrol 40 mg every 8 hours. He is on DuoNeb nebulized treatments around the clock. His ammonia level is less than 9. On 09/10/2018, the patient is doing progress. He seems to be more awake. Is ab le to cough more effectively. His FiO2 has improved and is down to 40s about 2 by nasal cannula. His breathing is nonlabored. Chest x-ray showing bilateral consolidation lower lobe effusions. No chest pain. No aspiration. Is tolerating his diet is on DuoNeb nebulized treatment [id number] is on IV Solu-Medrol. He is on IV Zosyn. He is able to sit up on a chair. He remains quite weak and lethargic yet interactive and more talkative and communicating compared to yesterday. No focal neurological deficits for now. His urine remains quite cloudy and there is significant amount of sediment. The previously sent culture was contaminant and for that reason we sent another UA and urine culture. UA came back positive for white cells along with few clumps and there was occasional bacteria. There was also some crystals. Cultures are still pending for now. The patient is still on IV Zosyn. No seizure activity. No visual or auditory hallucinations on today's evaluation. On 09/11/2018, the patient is being seen in the medical floor. He is doing well. No significant complaints for now. He seems to much more alert and awake. No hallucinations. No delusions. No tremors. No altered mentation. Echocardiogram is to be done today. No significant respiratory distress. Currently he is on 4 L of oxygen nasal cannula. He was diuresed with IV Lasix and the dose of Lasix was given to him overnight. He is on a IV Solu Medrol which will be tapered down to prednisone burst taper. He is tolerating his diet. No nausea. No vomiting. Urine culture is still pending for now. Meanwhile, the patient does not show any signs of septicemia. He remains on IV Zosyn. On 09/12/2018, the patient got transferred back to the intensive care unit. Overnight the patient became more short of breath, lethargic, hypoxic, and he was found to have significant abdominal distention. I recommended an NG tube placement. Following that, the patient was sent for a CAT scan of the chest and abdomen and it showed emphysema, bilateral multifocal pneumonia, bilateral pleural effusion right more than left, and no acute intra-abdominal findings. NG tube was removed 9 GERD output was minimal. The patient this morning is feeling much better. His lactic acid levels are improving. He has no chest pain. No minutes cough without any significant sputum production. He was given a dose of Lasix following which produced excellent urine output. He has a Benedict catheter in place. The urine quality has improved symptomatically at this point in time nontender this was very cloudy and purulent. Cultures of been negative. The patient remains on IV Zosyn. Right-sided thoracentesis is being considered for now. On 09/13/2018, the patient is doing well. No respiratory distress. I performed a thoracentesis on him yesterday and total of 1 L of pleural fluid was aspirated from the right lung. Chest x-ray from today shows a small amount of effusion the left. He is swallowing well. No aspiration or sputum production. No respiratory distress. He is on 40s about 2 by nasal cannula. Meanwhile, the Benedict cath is in place. The urine output for now is quite clean. 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 This explains the constant abnormalities in the urine analysis is worsening in this patient. He remains on IV Zosyn. Gen. surgery has been consulted regarding a fistulous connection between the bladder and the sigmoid colon. No abdominal pain. No s igns of any septicemia for the time being. Benedict catheter will be kept in place. On 09/06/2018 patient seen in follow-up on medical surgical floor. is resting comfortably in bed, in no acute distress, he is awake, alert to person, place, disoriented to time, but he knew who the president was. afebrile, hemodynamically stable, denies any difficulty breathing, lung sounds are reveal diffuse wheezes,patient is on oral prednisone, Zosyn for antibiotic coverage. No signs of DTs.his labs have been reviewed and showed white blood cell count is 5.7, hemoglobin is 7.6, serum phosphorus was 3.7, magnesium was 2.3. BMP was not done. On 09/15/2018 patient is seen in follow-up on medical surgical floor. Patient is resting in bed, he denies any acute distress, lung sounds are positive for a few scattered rales and wheezes, Nonproductive Cough. No signs of DTs. No complaints of worsening dyspnea, chest pain, cough or congestion. Remains on oral prednisone, Zosyn and Daptomycin for antibiotic coverage, patient is scheduled for colonoscopy sometime tomorrow. Benedict catheter remains in place and is draining clear yellow urine. His labs have been reviewed serum sodium is 1.36, potassium is 4.3, chloride is 100, CO2 is 35, BUN is 9 creatinine 0.69. 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 Patient was extubated initially in the or, however did not tolerate the extubation, ended up reintubated, sent back to the ICU on mechanical ventilation. Presently the patient is in the ICU on mechanical ventilation. And his ventilator settings are tidal volume of 500, assist control rate of 12, FiO2 was cut down from 100% to 40%, and PEEP at 5.ABG on on the percent showed a pO2 of 367 pCO2 of 46, and pH of 7.42. Patient was noted to have low blood pressure, hence I recommended a fluid bolus of 500 mL of 0.9 normal saline, recommended cutting down on his propofol, and if needed to start the patient on norepinephrine. Chest x-ray postoperatively showedhigh placement of the endotracheal tube, hence recommended advancement of the endotracheal tube by to see him. There was evidence of small left-sided pleural effusion and atelectasis, and findings consistent with COPD.all labs from earlier today were reviewed, he had a relatively normal electrolytes and the relatively normal CBC.hemoglobin was noted to be 8.9 earlier.shortly after he arrived to the ICU, patient was noted to have some left-sided weakness, and possibility of CVA was entertained. Hence CT of the brainwas done, it showed no acute intracranial hemorrhage no midline shift or mass effect there was evidence of diffuse mucoperiosteal thickening consistent with chronic sinusitis. And there was age related atrophy and nonspecific. Chelsea rology was consulted regarding his new change in neurological status. CT angiogram of the brain was also ordered and relatively unremarkable. Patient was reevaluated today on 09/17/2018, his postoperative day #1, patient remains on mechanical ventilation. About an hour ago, patient was taken off p ropofol. He was switched about half an hour ago to pressure support of 8 and CPAP. ABG on that setting showed a pO2 of 85 pCO2 of 43 pH of 7.47. Patient was assessed, and his weaning parameters seem to be reasonable. Chest x-ray shows some small left pleural effusion and atelectasis at the bases. Patient is awake, alert, follows all instructions, and the left-sided weakness which she had yesterday apparently resolved. Hence I recommended extubating the patient. Objective - Vital Signs Vital signs: Vital Signs Temp 98.1 F 09/17/18 08:00 Pulse 65 09/17/18 09:00 Resp 12 09/17/18 09:00 BP 99/64 09/16/18 17:30 Pulse Ox 98 09/17/18 09:00 Intake & Output 09/16/18 09/17/18 09/17/18 18:59 06:59 18:59 Intake Total 2467.237 1736.236 218.30 Output Total 1430 700 Balance 2352.820 4809.236 218.30 Weight 64.8 kg 68.6 kg Intake: IV 2450 1675 150 DAPTOmycin 300 mg In 50 Sodium Chloride 0.9% 50 ml @ 100 mls/hr IVPB Q24HR SANDY Rx#:[id number] Dextrose 5%-0.9% NaCl 1, 1375 000 ml @ 125 mls/hr IV . Q8H SANDY Rx#:[id number] Piperacillin-Tazobactam 3 100 100 100 .375 gm In Sodium Chloride 0.9% 100 ml @ 25 mls/hr IVPB Q8HR SANDY Rx# :[id number] Sodium Chloride 0.9% 1, 750 200 000 ml @ 20 mls/hr IV . Q24H SANDY Rx#:[id number] Intake, IV Titration 17.237 61.236 68.30 Amount Propofol 1,000 mg In 17.237 61.236 68.30 Empty Bag 1 bag @ Titrate IV .Q0M SANDY Rx#: [id number] Output: Urine 1400 700 Estimated Blood Loss 30 Other: Voiding Method Indwelling Catheter Indwelling Catheter ABP, PAP, CO, CI - Last Documented Arterial Blood Pressure 122/48 - Exam GENERAL EXAM: revealed 73-year-old white male mechanically ventilated, awake, in no distress, presently on pressure support of 8 and CPAP. HEENT: PERRLA, EOMI, endotracheal tube is intact, no neck masses, no JVD. CHEST: No chest wall deformity. Symmetrical expansion. LUNGS: minimal fine crackles at the bases, no rhonchi and no wheezes. CVS: Regular rate and rhythm, normal S1 and S2, no gallops, no murmurs, no rubs ABDOMEN: postsurgical, surgical dressings seems to be clean and dry, colostomy is intact.Soft, nontender. No hepatosplenomegaly, normal bowel sounds, no guarding or rigidity. EXTREMITIES: No clubbing, no edema, no cyanosis, 2+ pulses and upper and lower extremities SKIN: No rashes CENTRAL NERVOUS SYSTEM: Awake alert, no gross focal neurologic deficits. Left- sided weakness didn't resolve. PSYCHIATRIC: Calm, follows instructions, normal mood affect and mental status exam. - Labs CBC & Chem 7: 09/17/18 05:35 09/17/18 05:35 Labs: Abnormal Lab Results - Last 24 Hours (Table) 09/16/18 09/16/18 09/16/18 Range/Units 13:42 14:20 14:20 RBC 2.66 L (4.30-5.90) m/uL Hgb 8.9 L (13.0-17.5) gm/dL Hct 29.7 L (39.0-53.0) % MCV 111.8 H (80.0-100.0) fL MCHC 29.9 L (31.0-37.0) g/dL RDW 16.0 H (11.5-15.5) % Plt Count 597 H (150-450) k/uL Lymphocytes # 0.8 L (1.0-4.8) k/uL Macrocytosis Marked A ABG pH (7.35-7.45) ABG pCO2 (35-45) mmHg ABG pO2 (83-108) mmHg ABG HCO3 (21-25) mmol/L ABG Total CO2 (19-24) mmol/L ABG O2 Saturation (94-97) % Sodium (137-145) mmol/L Potassium (3.5-5.1) mmol/L BUN 6 L (9-20) mg/dL Creatinine 0.58 L (0.66-1.25) mg/dL Glucose 127 H (74-99) mg/dL POC Glucose (mg/dL) 145 H (75-99) mg/dL Calcium 7.4 L (8.4-10.2) mg/dL Phosphorus (2.5-4.5) mg/dL Troponin I (0.000-0.034) ng/mL Total Protein 4.7 L (6.3-8.2) g/dL Albumin 2.2 L (3.5-5.0) g/dL 09/16/18 09/16/18 09/16/18 Range/Units 14:20 14:20 15:03 RBC (4.30-5.90) m/uL Hgb (13.0-17.5) gm/dL Hct (39.0-53.0) % MCV (80.0-100.0) fL MCHC (31.0-37.0) g/dL RDW (11.5-15.5) % Plt Count (150-450) k/uL Lymphocytes # (1.0-4.8) k/uL Macrocytosis ABG pH (7.35-7.45) ABG pCO2 (35-45) mmHg ABG pO2 (83-108) mmHg ABG HCO3 (21-25) mmol/L ABG Total CO2 (19-24) mmol/L ABG O2 Saturation (94-97) % Sodium (137-145) mmol/L Potassium (3.5-5.1) mmol/L BUN (9-20) mg/dL Creatinine (0.66-1.25) mg/dL Glucose (74-99) mg/dL POC Glucose (mg/dL) 104 H (75-99) mg/dL Calcium (8.4-10.2) mg/dL Phosphorus 6.0 H (2.5-4.5) mg/dL Troponin I 0.049 H* (0.000-0.034) ng/mL Total Protein (6.3-8.2) g/dL Albumin (3.5-5.0) g/dL 09/16/18 09/16/1819 Range/Units 15:28 18:58 19:27 RBC (4.30-5.90) m/uL Hgb (13.0-17.5) gm/dL Hct (39.0-53.0) % MCV (80.0-100.0) fL MCHC (31.0-37.0) g/dL RDW (11.5-15.5) % Plt Count (150-450) k/uL Lymphocytes # (1.0-4.8) k/uL Macrocytosis ABG pH (7.35-7.45) ABG pCO2 46 H (35-45) mmHg ABG pO2 367 H (83-108) mmHg ABG HCO3 30 H (21-25) mmol/L ABG Total CO2 31 H (19-24) mmol/L ABG O2 Saturation 98.0 H (94-97) % Sodium (137-145) mmol/L Potassium (3.5-5.1) mmol/L BUN (9-20) mg/dL Creatinine (0.66-1.25) mg/dL Glucose (74-99) mg/dL POC Glucose (mg/dL) 65 L 127 H (75-99) mg/dL Calcium (8.4-10.2) mg/dL Phosphorus (2.5-4.5) mg/dL Troponin I (0.000-0.034) ng/mL Total Protein (6.3-8.2) g/dL Albumin (3.5-5.0) g/dL 09/16/18 09/17/18 09/17/18 Range/Units 23:50 05:35 05:35 RBC 2.24 L (4.30-5.90) m/uL Hgb 7.5 L (13.0-17.5) gm/dL Hct 24.2 L (39.0-53.0) % MCV 108.3 H (80.0-100.0) fL MCHC (31.0-37.0) g/dL RDW 16.3 H (11.5-15.5) % Plt Count 451 H (150-450) k/uL Lymphocytes # 0.7 L (1.0-4.8) k/uL Macrocytosis Marked A ABG pH (7.35-7.45) ABG pCO2 (35-45) mmHg ABG pO2 (83-108) mmHg ABG HCO3 (21-25) mmol/L ABG Total CO2 (19-24) mmol/L ABG O2 Saturation (94-97) % Sodium 136 L (137-145) mmol/L Potassium 3.3 L (3.5-5.1) mmol/L BUN 4 L (9-20) mg/dL Creatinine 0.52 L (0.66-1.25) mg/dL Glucose 135 H (74-99) mg/dL POC Glucose (mg/dL) (75-99) mg/dL Calcium 7.6 L (8.4-10.2) mg/dL Phosphorus (2.5-4.5) mg/dL Troponin I 0.037 H* (0.000-0.034) ng/mL Total Protein 4.1 L (6.3-8.2) g/dL Albumin 1.9 L (3.5-5.0) g/dL 09/17/18 09/17/18 09/17/18 Range/Units 05:35 05:54 06:57 RBC (4.30-5.90) m/uL Hgb (13.0-17.5) gm/dL Hct (39.0-53.0) % MCV (80.0-100.0) fL MCHC (31.0-37.0) g/dL RDW (11.5-15.5) % Plt Count (150-450) k/uL Lymphocytes # (1.0-4.8) k/uL Macrocytosis ABG pH 7.55 H (7.35-7.45) ABG pCO2 (35-45) mmHg ABG pO2 166 H (83-108) mmHg ABG HCO3 31 H (21-25) mmol/L ABG Total CO2 32 H (19-24) mmol/L ABG O2 Saturation 99.0 H (94-97) % Sodium (137-145) mmol/L Potassium (3.5-5.1) mmol/L BUN (9-20) mg/dL Creatinine (0.66-1.25) mg/dL Glucose (74-99) mg/dL POC Glucose (mg/dL) 117 H (75-99) mg/dL Calcium (8.4-10.2) mg/dL Phosphorus (2.5-4.5) mg/dL Troponin I 0.039 H* (0.000-0.034) ng/mL Total Protein (6.3-8.2) g/dL Albumin (3.5-5.0) g/dL 09/17/18 Range/Units 10:22 RBC (4.30-5.90) m/uL Hgb (13.0-17.5) gm/dL Hct (39.0-53.0) % MCV (80.0-100.0) fL MCHC (31.0-37.0) g/dL RDW (11.5-15.5) % Plt Count (150-450) k/uL Lymphocytes # (1.0-4.8) k/uL Macrocytosis ABG pH 7.47 H (7.35-7.45) ABG pCO2 (35-45) mmHg ABG pO2 (83-108) mmHg ABG HCO3 31 H (21-25) mmol/L ABG Total CO2 32 H (19-24) mmol/L ABG O2 Saturation (94-97) % Sodium (137-145) mmol/L Potassium (3.5-5.1) mmol/L BUN (9-20) mg/dL Creatinine (0.66-1.25) mg/dL Glucose (74-99) mg/dL POC Glucose (mg/dL) (75-99) mg/dL Calcium (8.4-10.2) mg/dL Phosphorus (2.5-4.5) mg/dL Troponin I (0.000-0.034) ng/mL Total Protein (6.3-8.2) g/dL Albumin (3.5-5.0) g/dL Microbiology - Last 24 Hours (Table) 09/12/18 13:26 Gram Stain - Final Pleural Fluid Body Fluid Culture - Final Assessment and Plan Assessment: impression: 1 status post diverting colostomy, presently on mechanical ventilation, postoperative day #1 2: The colovesical fistula, being addressed by surgery on the case, and is status post diverting colostomy. 3 urinary tract infection secondary to enterococcus presently on treatment as per infectious disease on the case. #4. Acute delirium, related to acute alcohol withdrawal syndrome, resolved. #5. Alcohol intoxication, falls at home, patient fell and hit his head while walking and tripping. CT head and cervical spine did not reveal any acute intracranial process or acute cervical fractures #6. Electrolyte abnormalities including mild hyponatremia, severe hypokalemia, hypochloremia, and increased CO2, hemodynamically related to patient's chronic a lcoholism, poor nutrition, and dehydration, significantly improved. #7. Chronic anemia #8. Chronic cigarette smoker #9. Chronic alcoholism with underlying malnutrition #10. Previous episode of pneumonia involving the left lower lobe in 2016 #11. Generalized weakness and debility and malnourishment #12 left-sided weakness, resolved, most likely secondary to TIA. Recommendation: Continue patient on pressure support and CPAP, evaluate ABG, will likely extubate the patient to a nasal cannula. In the meantime continue antibiotics, GI and DVT prophylaxis, continue hemodynamic support if necessary, continue to monitor the patient in the ICU for the next 24 hours, incentive spirometry postextubation. We'll continue to follow. Time with Patient: Less than 30
--- NOTE | 2018-09-17 11:49 | P.PN ---
Subjective Progress Note Date: 09/17/18 CHIEF COMPLAINT: Diverticulitis with colovesicular fistula HISTORY OF PRESENT ILLNESS: Patient examined at the bedside in the intensive care unit. Patient underwent diverting colostomy yesterday with Dr. Francis. Patient had to be re-intubated yesterday secondary to respiratory distress. Patient currently off sedation and on CPAP trial for possible extubation today. Ostomy with no output. NG to LIS. PHYSICAL EXAM: VITAL SIGNS: Reviewed. GENERAL: Well-developed in no acute distress. HEENT: NG to LIS. No sclera icterus. Extraocular movements grossly intact. Moist buccal mucosa. Head is atraumatic, normocephalic. ABDOMEN: Soft. Nondistended. Minimal tenderness. Dressing to midline with shadowing present. Ostomy with no gas or stool present. NEUROLOGIC: Awake. Moves all extremities. Off sedation and weaning on ventilator. ASSESSMENT: 1. Diverticulitis with colovesicular fistula PLAN: Ventilator management per Dr. Shahid Continue NPO and NG while intubated If extubation occurs today, patient may have clear liquid diet Nurse practitioner note has been reviewed by physician. Signing provider agrees with the documented findings, assessment, and plan of care. Objective - Vital Signs Vital signs: Vital Signs Temp 98.1 F 09/17/18 08:00 Pulse 89 09/17/18 11:30 Resp 12 09/17/18 09:00 BP 99/64 09/16/18 17:30 Pulse Ox 98 09/17/18 09:00 Intake & Output 09/16/18 09/17/18 09/17/18 18:59 06:59 18:59 Intake Total 2467.237 1736.236 218.30 Output Total 1430 700 Balance 0547.948 9901.236 218.30 Weight 64.8 kg 68.6 kg Intake: IV 2450 1675 150 DAPTOmycin 300 mg In 50 Sodium Chloride 0.9% 50 ml @ 100 mls/hr IVPB Q24HR [facility] Rx#:[id number] Dextrose 5%-0.9% NaCl 1, 1375 000 ml @ 125 mls/hr IV . Q8H [facility] Rx#:[id number] Piperacillin-Tazobactam 3 100 100 100 .375 gm In Sodium Chloride 0.9% 100 ml @ 25 mls/hr IVPB Q8HR [facility] Rx# :[id number] Sodium Chloride 0.9% 1, 750 200 000 ml @ 20 mls/hr IV . Q24H [facility] Rx#:[id number] Intake, IV Titration 17.237 61.236 68.30 Amount Propofol 1,000 mg In 17.237 61.236 68.30 Empty Bag 1 bag @ Titrate IV .Q0M [facility] Rx#: [id number] Output: Urine 1400 700 Estimated Blood Loss 30 Other: Voiding Method Indwelling Catheter Indwelling Catheter ABP, PAP, CO, CI - Last Documented Arterial Blood Pressure 122/48 - Labs CBC & Chem 7: 09/17/18 05:35 09/17/18 05:35 Labs: Abnormal Lab Results - Last 24 Hours (Table) 09/16/18 09/16/18 09/16/18 Range/Units 13:42 14:20 14:20 RBC 2.66 L (4.30-5.90) m/uL Hgb 8.9 L (13.0-17.5) gm/dL Hct 29.7 L (39.0-53.0) % MCV 111.8 H (80.0-100.0) fL MCHC 29.9 L (31.0-37.0) g/dL RDW 16.0 H (11.5-15.5) % Plt Count 597 H (150-450) k/uL Lymphocytes # 0.8 L (1.0-4.8) k/uL Macrocytosis Marked A ABG pH (7.35-7.45) ABG pCO2 (35-45) mmHg ABG pO2 (83-108) mmHg ABG HCO3 (21-25) mmol/L ABG Total CO2 (19-24) mmol/L ABG O2 Saturation (94-97) % Sodium (137-145) mmol/L Potassium (3.5-5.1) mmol/L BUN 6 L (9-20) mg/dL Creatinine 0.58 L (0.66-1.25) mg/dL Glucose 127 H (74-99) mg/dL POC Glucose (mg/dL) 145 H (75-99) mg/dL Calcium 7.4 L (8.4-10.2) mg/dL Phosphorus (2.5-4.5) mg/dL Troponin I (0.000-0.034) ng/mL Total Protein 4.7 L (6.3-8.2) g/dL Albumin 2.2 L (3.5-5.0) g/dL 09/16/18 09/16/18 09/16/18 Range/Units 14:20 14:20 15:03 RBC (4.30-5.90) m/uL Hgb (13.0-17.5) gm/dL Hct (39.0-53.0) % MCV (80.0-100.0) fL MCHC (31.0-37.0) g/dL RDW (11.5-15.5) % Plt Count (150-450) k/uL Lymphocytes # (1.0-4.8) k/uL Macrocytosis ABG pH (7.35-7.45) ABG pCO2 (35-45) mmHg ABG pO2 (83-108) mmHg ABG HCO3 (21-25) mmol/L ABG Total CO2 (19-24) mmol/L ABG O2 Saturation (94-97) % Sodium (137-145) mmol/L Potassium (3.5-5.1) mmol/L BUN (9-20) mg/dL Creatinine (0.66-1.25) mg/dL Glucose (74-99) mg/dL POC Glucose (mg/dL) 104 H (75-99) mg/dL Calcium (8.4-10.2) mg/dL Phosphorus 6.0 H (2.5-4.5) mg/dL Troponin I 0.049 H* (0.000-0.034) ng/mL Total Protein (6.3-8.2) g/dL Albumin (3.5-5.0) g/dL 09/16/18 09/16/18 09/16/18 Range/Units 15:28 18:58 19:27 RBC (4.30-5.90) m/uL Hgb (13.0-17.5) gm/dL Hct (39.0-53.0) % MCV (80.0-100.0) fL MCHC (31.0-37.0) g/dL RDW (11.5-15.5) % Plt Count (150-450) k/uL Lymphocytes # (1.0-4.8) k/uL Macrocytosis ABG pH (7.35-7.45) ABG pCO2 46 H (35-45) mmHg ABG pO2 367 H (83-108) mmHg ABG HCO3 30 H (21-25) mmol/L ABG Total CO2 31 H (19-24) mmol/L ABG O2 Saturation 98.0 H (94-97) % Sodium (137-145) mmol/L Potassium (3.5-5.1) mmol/L BUN (9-20) mg/dL Creatinine (0.66-1.25) mg/dL Glucose (74-99) mg/dL POC Glucose (mg/dL) 65 L 127 H (75-99) mg/dL Calcium (8.4-10.2) mg/dL Phosphorus (2.5-4.5) mg/dL Troponin I (0.000-0.034) ng/mL Total Protein (6.3-8.2) g/dL Albumin (3.5-5.0) g/dL 09/16/18 09/17/18 09/17/18 Range/Units 23:50 05:35 05:35 RBC 2.24 L (4.30-5.90) m/uL Hgb 7.5 L (13.0-17.5) gm/dL Hct 24.2 L (39.0-53.0) % MCV 108.3 H (80.0-100.0) fL MCHC (31.0-37.0) g/dL RDW 16.3 H (11.5-15.5) % Plt Count 451 H (150-450) k/uL Lymphocytes # 0.7 L (1.0-4.8) k/uL Macrocytosis Marked A ABG pH (7.35-7.45) ABG pCO2 (35-45) mmHg ABG pO2 (83-108) mmHg ABG HCO3 (21-25) mmol/L ABG Total CO2 (19-24) mmol/L ABG O2 Saturation (94-97) % Sodium 136 L (137-145) mmol/L Potassium 3.3 L (3.5-5.1) mmol/L BUN 4 L (9-20) mg/dL Creatinine 0.52 L (0.66-1.25) mg/dL Glucose 135 H (74-99) mg/dL POC Glucose (mg/dL) (75-99) mg/dL Calcium 7.6 L (8.4-10.2) mg/dL Phosphorus (2.5-4.5) mg/dL Troponin I 0.037 H* (0.000-0.034) ng/mL Total Protein 4.1 L (6.3-8.2) g/dL Albumin 1.9 L (3.5-5.0) g/dL 09/17/18 09/17/18 09/17/18 Range/Units 05:35 05:54 06:57 RBC (4.30-5.90) m/uL Hgb (13.0-17.5) gm/dL Hct (39.0-53.0) % MCV (80.0-100.0) fL MCHC (31.0-37.0) g/dL RDW (11.5-15.5) % Plt Count (150-450) k/uL Lymphocytes # (1.0-4.8) k/uL Macrocytosis ABG pH 7.55 H (7.35-7.45) ABG pCO2 (35-45) mmHg ABG pO2 166 H (83-108) mmHg ABG HCO3 31 H (21-25) mmol/L ABG Total CO2 32 H (19-24) mmol/L ABG O2 Saturation 99.0 H (94-97) % Sodium (137-145) mmol/L Potassium (3.5-5.1) mmol/L BUN (9-20) mg/dL Creatinine (0.66-1.25) mg/dL Glucose (74-99) mg/dL POC Glucose (mg/dL) 117 H (75-99) mg/dL Calcium (8.4-10.2) mg/dL Phosphorus (2.5-4.5) mg/dL Troponin I 0.039 H* (0.000-0.034) ng/mL Total Protein (6.3-8.2) g/dL Albumin (3.5-5.0) g/dL 09/17/18 Range/Units 10:22 RBC (4.30-5.90) m/uL Hgb (13.0-17.5) gm/dL Hct (39.0-53.0) % MCV (80.0-100.0) fL MCHC (31.0-37.0) g/dL RDW (11.5-15.5) % Plt Count (150-450) k/uL Lymphocytes # (1.0-4.8) k/uL Macrocytosis ABG pH 7.47 H (7.35-7.45) ABG pCO2 (35-45) mmHg ABG pO2 (83-108) mmHg ABG HCO3 31 H (21-25) mmol/L ABG Total CO2 32 H (19-24) mmol/L ABG O2 Saturation (94-97) % Sodium (137-145) mmol/L Potassium (3.5-5.1) mmol/L BUN (9-20) mg/dL Creatinine (0.66-1.25) mg/dL Glucose (74-99) mg/dL POC Glucose (mg/dL) (75-99) mg/dL Calcium (8.4-10.2) mg/dL Phosphorus (2.5-4.5) mg/dL Troponin I (0.000-0.034) ng/mL Total Protein (6.3-8.2) g/dL Albumin (3.5-5.0) g/dL Microbiology - Last 24 Hours (Table) 09/12/18 13:26 Gram Stain - Final Pleural Fluid Body Fluid Culture - Final
[2018-09-17 12:00] LABS: Glucose,Whole Blood 126 mg/dL (75-99)
--- NOTE | 2018-09-17 14:36 | CONS ---
CONSULTATION Mr. Ralph moody is a 73-year-old gentleman who is seen for cardiac evaluation this patient's chart been reviewed. This patient has been in the hospital for 10 days. The patient underwent revision of the colostomy yesterday. Patient was extubated in the recovery room, but subsequently patient remained in respiratory distress and was re- intubated. Patient subsequently was admitted back into the intensive care unit, this morning patient is extubated. Patient denies any chest pain. 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 Patient had an echocardiogram done about 5 days ago which revealed ejection fraction of 20% to 25%. There is no definite previous history of myocardial infarction. Patient's medications are reviewed. PHYSICAL EXAMINATION: At present reveals a 73-year-old gentleman who's blood pressure is 122/48 mmHg, heart rate is 90 per minute. HEENT examination is negative. Neck is supple. There is no increase in jugular venous pressure. Both the carotid pulses are felt. There is no bruit. Chest is symmetrical. Heart, the PMI is not felt. First and second heart sounds are normal Lungs are clinically clear to auscultation and percussion. Abdomen is soft. Extremities, peripheral pulsations are 2+. EKG done yesterday shows T-wave inversions in the anterior leads. We do not have any old EKG available. Patient had a 3 sets of troponin which are borderline elevated without any significant rise and fall. FINAL IMPRESSION: This patient has multiple medical problems, underwent surgery yesterday and had respiratory distress and was reintubated. The mild rise in the troponin could be due to underlying cardiomyopathy and the respiratory distress. Overall picture is not suggestive of acute coronary syndrome. We will start the patient on a small dose of beta darline and repeat the EKG. MMODL / IJN: [id number] /
[2018-09-17] MEDS: HYDROmorphone 1 MG/ML 1 ML SYRINGE IM PRN (17:51)
[2018-09-17 17:52] LABS: Glucose,Whole Blood 174 mg/dL (75-99)
--- NOTE | 2018-09-17 19:33 | PN ---
PROGRESS NOTE DATE OF SERVICE: 09/17/2018. REASON FOR FOLLOWUP VISIT: 1. Diverticulitis. 2. Enterococcus faecium urinary tract infection. INTERVAL HISTORY: The patient is currently afebrile. The patient has been extubated this morning. The patient is breathing comfortably. No chest pain or any cough. No abdominal pain. No nausea, no vomiting. PHYSICAL EXAMINATION: Blood pressure 123/58 with a pulse of 73, temperature of 98.3. He is 98% on 2 L nasal cannula. General description is an elderly male lying in bed in no distress. Respiratory system: Unlabored breathing. Clear to auscultation anteriorly. Heart S1, S2. Regular rate and rhythm. Abdomen soft, no tenderness. LABS: Hemoglobin 7.5, white count 7.1. BUN of 4, creatinine 0.52. DIAGNOSTIC IMPRESSION AND PLAN: Patient with acute complicated sigmoid diverticulitis with colovesical fistula, status post laparotomy with diverting colostomy. Urine has been positive with enterococcus faecium that is ampicillin resistant. Currently patient covered with daptomycin and Zosyn to continue while monitoring the clinical course closely. Continue supportive care. MMODL / IJN: [id number] /
--- NOTE | 2018-09-17 19:57 | P.CNNES ---
History of Present Illness Consult date: 09/16/18 Reason for Consult: CVA History of Present Illness: Patient is a 73-year-old male, who actually came to the hospital on 09/06/2018 for evaluation of falls at home. He tripped while walking and fell backwards hitting his head on the fridge. No loss of consciousness at that time. Patient had history of alcoholism. He had altered mental status for a few days. His hospitalization was complicated with diverticulitis, with colovesical fistula on 09/13/2018. Patient is status post diverging colostomy performed this morning. Patient after the procedure became less responsive, jerome in the postop area and ended up getting free intubated and then was transferred to ICU. He came to the ICU intubated. Patient at around 3 PM was noted to have weakness of left arm and leg as compared to the right, therefore prompted stroke code. Patient was not a candidate for TPA, as he was just postoperative status. Patient at present is on 10 g of propofol. No seizures have been reported. Patient's blood test shows WBC 6.7 hemoglobin 8.9, platelets 451. Sodium potassium, renal functions normal. Liver functions normal. Troponin is borderline elevated. Patient's B12 is 508, methylmalonic acid 0.16, folate 19.2. TSH is normal. Patient had a stat computed tomography scan of the head, which revealed no acute intracranial hemorrhage midline shift or mass effect. Diffuse muco-periosteal thickening indicative of chronic sinusitis. Acute superimposed component is also seen. Diffuse age-related cerebral atrophy and moderate nonspecific white matter change, likely on the basis of chronic microangiopathy. Patient had a 2-D echo performed on 09/13/2018, which revealed left ventricular size and thickness normal. There is severe global hypokinesis of left ventricle. Ejection fraction 20-25%. Basal inferior septal wall motion is hypokinetic. Basal anterior septal left ventricular wall motion is hypokinetic. Atrial sizes are normal. Patient has history of alcohol abuse in the past. According to previous electronic records, patient used to drink 2-4 shots of the shots per day. Review of Systems ROS unobtainable: due to endotracheal tube, due to mental status Past Medical History Past Medical History: No Reported History Additional Past Medical History / Comment(s): Severe anemia, previous pneumonia involving the left lower lobe for which she was hospitalized at [facility] in 2016, chronic smoker, alcoholism, malnutrition History of Any Multi-Drug Resistant Organisms: None Reported Past Surgical History: No Surgical Hx Reported, Tonsillectomy Additional Past Surgical History / Comment(s): Pt states he has never had surger y. Past Anesthesia/Blood Transfusion Reactions: Unable to Obtain Past Psychological History: No Psychological Hx Reported Additional Psychological History / Comment(s): Pt resides in a home alone. He just got a walker yesterday. 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 He gets to appointments by friends. Friends also help him get food. Smoking Status: Current every day smoker Past Alcohol Use History: Abuse, Daily, Heavy Additional Past Alcohol Use History / Comment(s): Pt started smoking in 1967 and smokes 1-1.5 ppd. He drinks approximately 2-3 shots of liqour a day, he doesn't measure with a shot glass, he just pour liqour into a "rock" glass. Past Drug Use History: None Reported - Past Family History Mother Additional Family Medical History / Comment(s): from cirrhosis Father Additional Family Medical History / Comment(s): from [place] Medications and Allergies Home Medications Medication Instructions Recorded Confirmed Type Aspirin EC [Ecotrin] 325 mg PO QID PRN 01/21/18 09/06/18 History Allergies Allergy/AdvReac Type Severity Reaction Status Date / Time lorazepam [From Ativan] AdvReac Severe Unknown Verified 09/12/18 01:14 Physical Examination - Vital Signs Vital Signs: Vital Signs Temp Pulse Pulse Pulse Resp BP BP 09/16/18 15:00 12 170/119 09/16/18 13:15 92 10 L 128/69 09/16/18 13:05 169/105 09/16/18 12:56 97.3 F L 116 H 181/108 09/16/18 10:55 97.8 F 97 89 16 122/70 09/16/18 07:22 97.7 F 88 18 09/16/18 00:49 98.1 F 59 L 15 121/71 09/15/18 21:07 98.2 F 61 15 114/71 09/15/18 16:50 12 BP Pulse Ox 09/16/18 15:00 100 09/16/18 13:15 09/16/18 13:05 09/16/18 12:56 09/16/18 10:55 97 09/16/18 07:22 162/89 99 09/16/18 00:49 100 09/15/18 21:07 100 09/15/18 16:50 Intake and Output 09/16/18 09/16/18 09/16/18 06:59 14:59 22:59 Intake Total 1500 100 Output Total 700 780 350 Balance -700 720 -250 Intake: IV 1500 100 Output: Urine 700 750 350 Estimated Blood Loss 30 Other: Voiding Method Indwelling Catheter Weight 64.8 kg ABP, PAP, CO, CI - Last 8 Hours Arterial Blood Pressure 187/91 On examination, patient is intubated. Patient was sedated with low-dose propofol 10 g. It was discontinued, but patient's mentation did not improve. Continues to be encephalopathic. He does open his eyes, sometimes makes eye contact, but other times has a glassy look. Patient did not cooperate at all for squeezing hands, or moving extremities. His pupils are round and reacting. Visual molina could not be tested. Oculocephalics are present. When the arms are elevated passively, they dropped down to the bed with equal intensity with no obvious focality. Reflexes are diminished and plantars are equivocal. No seizure-like activity is noted. Results - Laboratory Findings CBC and BMP: 09/17/18 05:35 09/17/18 05:35 Abnormal Lab Findings: Abnormal Labs 09/06/18 09/06/18 09/07/18 23:14 23:14 03:39 WBC RBC 2.68 L Hgb 9.4 L Hct 27.8 L MCV 103.7 H MCH MCHC RDW 15.9 H Plt Count Neutrophils # Lymphocytes # Macrocytosis PT INR APTT D-Dimer ABG pH ABG pCO2 ABG pO2 ABG HCO3 ABG Total CO2 ABG O2 Saturation Sodium 134 L Potassium 2.5 L* Chloride 94 L Carbon Dioxide 31 H BUN Creatinine Glucose POC Glucose (mg/dL) 115 H Hemoglobin A1c Plasma Lactic Acid Rohit Calcium 7.4 L TIBC ALT 20 L Alkaline Phosphatase 147 H Troponin I Total Protein 5.6 L Albumin 2.5 L Ur Specific [place] Urine Protein Urine Ketones Urine Blood Ur Leukocyte Esterase Urine RBC Urine WBC Urine WBC Clumps Calcium Oxalate Crystal Urine Bacteria Urine Mucus 09/07/18 09/07/18 09/07/18 16:33 18:00 22:35 WBC RBC Hgb Hct MCV MCH MCHC RDW Plt Count Neutrophils # Lymphocytes # Macrocytosis PT INR APTT D-Dimer 1.90 H ABG pH 7.50 H ABG pCO2 ABG pO2 69 L ABG HCO3 31 H ABG Total CO2 32 H ABG O2 Saturation 92.4 L Sodium Potassium Chloride Carbon Dioxide BUN Creatinine Glucose POC Glucose (mg/dL) Hemoglobin A1c Plasma Lactic Acid Rohit Calcium TIBC ALT Alkaline Phosphatase Troponin I Total Protein Albumin Ur Specific [place] Urine Protein 2+ H Urine Ketones Trace H Urine Blood Moderate H Ur Leukocyte Esterase Large H Urine RBC 68 H Urine WBC >182 H Urine WBC Clumps Many H Calcium Oxalate Crystal Urine Bacteria Many H Urine Mucus 09/07/18 09/07/18 09/07/18 23:55 23:55 23:55 WBC RBC 2.60 L Hgb 9.1 L Hct 28.2 L MCV 108.6 H MCH MCHC RDW 16.0 H Plt Count Neutrophils # Lymphocytes # Macrocytosis Marked A PT 14.5 H INR 1.4 H APTT 48.2 H D-Dimer ABG pH ABG pCO2 ABG pO2 ABG HCO3 ABG Total CO2 ABG O2 Saturation Sodium 135 L Potassium Chloride Carbon Dioxide BUN Creatinine Glucose POC Glucose (mg/dL) Hemoglobin A1c Plasma Lactic Acid Rohit Calcium 6.8 L TIBC ALT Alkaline Phosphatase Troponin I Total Protein 4.7 L Albumin 2.0 L Ur Specific [place] Urine Protein Urine Ketones Urine Blood Ur Leukocyte Esterase Urine RBC Urine WBC Urine WBC Clumps Calcium Oxalate Crystal Urine Bacteria Urine Mucus 09/08/18 09/08/18 09/08/18 04:36 04:36 05:50 WBC RBC 2.53 L Hgb 8.7 L Hct 27.5 L MCV 109.0 H MCH MCHC RDW 16.2 H Plt Count Neutrophils # 9.3 H Lymphocytes # 0.6 L Macrocytosis Marked A PT INR APTT D-Dimer ABG pH ABG pCO2 ABG pO2 ABG HCO3 ABG Total CO2 ABG O2 Saturation Sodium 136 L Potassium 3.3 L Chloride Carbon Dioxide BUN Creatinine 0.65 L Glucose 71 L POC Glucose (mg/dL) 120 H Hemoglobin A1c Plasma Lactic Acid Rohit Calcium 6.5 L TIBC ALT Alkaline Phosphatase Troponin I Total Protein 4.3 L Albumin 1.8 L Ur Specific [place] Urine Protein Urine Ketones Urine Blood Ur Leukocyte Esterase Urine RBC Urine WBC Urine WBC Clumps Calcium Oxalate Crystal Urine Bacteria Urine Mucus 09/08/18 09/09/18 09/09/18 17:42 00:12 04:30 WBC RBC Hgb Hct MCV MCH MCHC RDW Plt Count Neutrophils # Lymphocytes # Macrocytosis PT INR APTT D-Dimer ABG pH ABG pCO2 ABG pO2 ABG HCO3 ABG Total CO2 ABG O2 Saturation Sodium 136 L Potassium Chloride Carbon Dioxide BUN Creatinine Glucose 134 H POC Glucose (mg/dL) 160 H 171 H Hemoglobin A1c Plasma Lactic Acid Rohit Calcium 7.2 L TIBC ALT Alkaline Phosphatase Troponin I Total Protein Albumin Ur Specific [place] Urine Protein Urine Ketones Urine Blood Ur Leukocyte Esterase Urine RBC Urine WBC Urine WBC Clumps Calcium Oxalate Crystal Urine Bacteria Urine Mucus 09/09/18 09/09/18 09/09/18 04:30 05:47 12:59 WBC RBC 2.37 L Hgb 8.1 L Hct 25.8 L MCV 108.7 H MCH MCHC RDW 16.2 H Plt Count Neutrophils # 8.5 H Lymphocytes # 0.5 L Macrocytosis Marked A PT INR APTT D-Dimer ABG pH ABG pCO2 ABG pO2 ABG HCO3 ABG Total CO2 ABG O2 Saturation Sodium Potassium Chloride Carbon Dioxide BUN Creatinine Glucose POC Glucose (mg/dL) 149 H 174 H Hemoglobin A1c Plasma Lactic Acid Rohit Calcium TIBC ALT Alkaline Phosphatase Troponin I Total Protein Albumin Ur Specific [place] Urine Protein Urine Ketones Urine Blood Ur Leukocyte Esterase Urine RBC Urine WBC Urine WBC Clumps Calcium Oxalate Crystal Urine Bacteria Urine Mucus 09/09/18 09/10/18 09/10/18 17:10 02:05 04:48 WBC RBC Hgb Hct MCV MCH MCHC RDW Plt Count Neutrophils # Lymphocytes # Macrocytosis PT INR APTT D-Dimer ABG pH ABG pCO2 ABG pO2 ABG HCO3 ABG Total CO2 ABG O2 Saturation Sodium 133 L Potassium Chloride Carbon Dioxide BUN Creatinine Glucose 110 H POC Glucose (mg/dL) 147 H 150 H Hemoglobin A1c Plasma Lactic Acid Rohit Calcium 7.5 L TIBC ALT Alkaline Phosphatase Troponin I Total Protein Albumin Ur Specific [place] Urine Protein Urine Ketones Urine Blood Ur Leukocyte Esterase Urine RBC Urine WBC Urine WBC Clumps Calcium Oxalate Crystal Urine Bacteria Urine Mucus 09/10/18 09/10/18 09/10/18 04:48 06:48 11:58 WBC RBC 2.19 L Hgb 7.3 L Hct 23.8 L MCV 108.4 H MCH MCHC 30.6 L RDW 16.0 H Plt Count Neutrophils # 8.9 H Lymphocytes # 0.4 L Macrocytosis Marked A PT INR APTT D-Dimer ABG pH ABG pCO2 ABG pO2 ABG HCO3 ABG Total CO2 ABG O2 Saturation Sodium Potassium Chloride Carbon Dioxide BUN Creatinine Glucose POC Glucose (mg/dL) 105 H 135 H Hemoglobin A1c Plasma Lactic Acid Rohit Calcium TIBC ALT Alkaline Phosphatase Troponin I Total Protein Albumin Ur Specific [place] Urine Protein Urine Ketones Urine Blood Ur Leukocyte Esterase Urine RBC Urine WBC Urine WBC Clumps Calcium Oxalate Crystal Urine Bacteria Urine Mucus 09/10/18 09/10/18 09/10/18 12:00 16:55 20:34 WBC RBC Hgb Hct MCV MCH MCHC RDW Plt Count Neutrophils # Lymphocytes # Macrocytosis PT INR APTT D-Dimer ABG pH ABG pCO2 ABG pO2 ABG HCO3 ABG Total CO2 ABG O2 Saturation Sodium Potassium Chloride Carbon Dioxide BUN Creatinine Glucose POC Glucose (mg/dL) 222 H 104 H Hemoglobin A1c Plasma Lactic Acid Rohit Calcium TIBC ALT Alkaline Phosphatase Troponin I Total Protein Albumin Ur Specific [place] 1.039 H Urine Protein 1+ H Urine Ketones Trace H Urine Blood Trace H Ur Leukocyte Esterase Large H Urine RBC 7 H Urine WBC >182 H Urine WBC Clumps Few H Calcium Oxalate Crystal Rare H Urine Bacteria Occasional H Urine Mucus Rare H 09/11/18 09/11/18 09/11/18 02:04 05:44 05:44 WBC 10.8 H RBC 2.24 L Hgb 8.0 L Hct 24.9 L MCV 111.3 H MCH 35.6 H MCHC RDW 16.4 H Plt Count Neutrophils # 9.9 H Lymphocytes # 0.4 L Macrocytosis Marked A PT INR APTT D-Dimer ABG pH ABG pCO2 ABG pO2 ABG HCO3 ABG Total CO2 ABG O2 Saturation Sodium 133 L Potassium Chloride Carbon Dioxide BUN 21 H Creatinine Glucose 137 H POC Glucose (mg/dL) 144 H Hemoglobin A1c Plasma Lactic Acid Rohit Calcium 7.8 L TIBC ALT Alkaline Phosphatase Troponin I Total Protein Albumin Ur Specific [place] Urine Protein Urine Ketones Urine Blood Ur Leukocyte Esterase Urine RBC Urine WBC Urine WBC Clumps Calcium Oxalate Crystal Urine Bacteria Urine Mucus 09/11/18 09/11/18 09/11/18 05:44 06:25 12:05 WBC RBC Hgb Hct MCV MCH MCHC RDW Plt Count Neutrophils # Lymphocytes # Macrocytosis PT INR APTT D-Dimer ABG pH ABG pCO2 ABG pO2 ABG HCO3 ABG Total CO2 ABG O2 Saturation Sodium Potassium Chloride Carbon Dioxide BUN Creatinine Glucose POC Glucose (mg/dL) 161 H 206 H Hemoglobin A1c 6.4 H Plasma Lactic Acid Rohit Calcium TIBC ALT Alkaline Phosphatase Troponin I Total Protein Albumin Ur Specific [place] Urine Protein Urine Ketones Urine Blood Ur Leukocyte Esterase Urine RBC Urine WBC Urine WBC Clumps Calcium Oxalate Crystal Urine Bacteria Urine Mucus 09/11/18 09/11/18 09/12/18 16:33 20:52 00:34 WBC RBC 2.62 L Hgb 8.6 L Hct 29.1 L MCV 111.2 H MCH MCHC 29.5 L RDW 15.8 H Plt Count 576 H Neutrophils # 8.0 H Lymphocytes # Macrocytosis Marked A PT INR APTT D-Dimer ABG pH ABG pCO2 ABG pO2 ABG HCO3 ABG Total CO2 ABG O2 Saturation Sodium Potassium Chloride Carbon Dioxide BUN Creatinine Glucose POC Glucose (mg/dL) 177 H 163 H Hemoglobin A1c Plasma Lactic Acid Rohit Calcium TIBC ALT Alkaline Phosphatase Troponin I Total Protein Albumin Ur Specific [place] Urine Protein Urine Ketones Urine Blood Ur Leukocyte Esterase Urine RBC Urine WBC Urine WBC Clumps Calcium Oxalate Crystal Urine Bacteria Urine Mucus 09/12/18 09/12/18 09/12/18 00:34 00:34 00:50 WBC RBC Hgb Hct MCV MCH MCHC RDW Plt Count Neutrophils # Lymphocytes # Macrocytosis PT INR APTT D-Dimer ABG pH ABG pCO2 ABG pO2 ABG HCO3 ABG Total CO2 ABG O2 Saturation Sodium 134 L Potassium Chloride Carbon Dioxide BUN 21 H Creatinine Glucose 114 H POC Glucose (mg/dL) Hemoglobin A1c Plasma Lactic Acid Rohit 3.1 H* Calcium 8.1 L TIBC ALT Alkaline Phosphatase 141 H Troponin I Total Protein 5.4 L Albumin 2.6 L Ur Specific [place] Urine Protein 3+ H Urine Ketones Urine Blood Moderate H Ur Leukocyte Esterase Large H Urine RBC 30 H Urine WBC >182 H Urine WBC Clumps Many H Calcium Oxalate Crystal Urine Bacteria Many H Urine Mucus 09/12/18 09/12/18 09/12/18 01:33 02:01 02:56 WBC RBC Hgb Hct MCV MCH MCHC RDW Plt Count Neutrophils # Lymphocytes # Macrocytosis PT INR APTT D-Dimer 2.85 H ABG pH ABG pCO2 ABG pO2 ABG HCO3 ABG Total CO2 ABG O2 Saturation Sodium Potassium Chloride Carbon Dioxide BUN Creatinine Glucose POC Glucose (mg/dL) 162 H 141 H Hemoglobin A1c Plasma Lactic Acid Rohit Calcium TIBC ALT Alkaline Phosphatase Troponin I Total Protein Albumin Ur Specific [place] Urine Protein Urine Ketones Urine Blood Ur Leukocyte Esterase Urine RBC Urine WBC Urine WBC Clumps Calcium Oxalate Crystal Urine Bacteria Urine Mucus 09/12/18 09/12/18 09/12/18 03:51 05:06 06:58 WBC RBC Hgb Hct MCV MCH MCHC RDW Plt Count Neutrophils # Lymphocytes # Macrocytosis PT INR APTT D-Dimer ABG pH ABG pCO2 ABG pO2 ABG HCO3 ABG Total CO2 ABG O2 Saturation Sodium Potassium Chloride Carbon Dioxide BUN Creatinine Glucose POC Glucose (mg/dL) 122 H 108 H Hemoglobin A1c Plasma Lactic Acid Rohit 2.4 H* Calcium TIBC ALT Alkaline Phosphatase Troponin I Total Protein Albumin Ur Specific [place] Urine Protein Urine Ketones Urine Blood Ur Leukocyte Esterase Urine RBC Urine WBC Urine WBC Clumps Calcium Oxalate Crystal Urine Bacteria Urine Mucus 09/12/18 09/12/18 09/12/18 11:56 16:59 20:46 WBC RBC Hgb Hct MCV MCH MCHC RDW Plt Count Neutrophils # Lymphocytes # Macrocytosis PT INR APTT D-Dimer ABG pH ABG pCO2 ABG pO2 ABG HCO3 ABG Total CO2 ABG O2 Saturation Sodium Potassium Chloride Carbon Dioxide BUN Creatinine Glucose POC Glucose (mg/dL) 148 H 154 H 205 H Hemoglobin A1c Plasma Lactic Acid Rohit Calcium TIBC ALT Alkaline Phosphatase Troponin I Total Protein Albumin Ur Specific [place] Urine Protein Urine Ketones Urine Blood Ur Leukocyte Esterase Urine RBC Urine WBC Urine WBC Clumps Calcium Oxalate Crystal Urine Bacteria Urine Mucus 09/13/18 09/13/18 09/13/18 02:16 04:40 04:40 WBC RBC 2.13 L Hgb 7.3 L Hct 23.2 L MCV 108.7 H MCH MCHC RDW 16.5 H Plt Count Neutrophils # Lymphocytes # 0.7 L Macrocytosis Marked A PT INR APTT D-Dimer ABG pH ABG pCO2 ABG pO2 ABG HCO3 ABG Total CO2 ABG O2 Saturation Sodium Potassium Chloride Carbon Dioxide 38 H BUN Creatinine Glucose 72 L POC Glucose (mg/dL) 145 H Hemoglobin A1c Plasma Lactic Acid Rohit Calcium 7.9 L TIBC ALT Alkaline Phosphatase Troponin I Total Protein 4.5 L Albumin 2.1 L Ur Specific [place] Urine Protein Urine Ketones Urine Blood Ur Leukocyte Esterase Urine RBC Urine WBC Urine WBC Clumps Calcium Oxalate Crystal Urine Bacteria Urine Mucus 09/13/18 09/13/18 09/13/18 06:58 11:49 16:44 WBC RBC Hgb Hct MCV MCH MCHC RDW Plt Count Neutrophils # Lymphocytes # Macrocytosis PT INR APTT D-Dimer ABG pH ABG pCO2 ABG pO2 ABG HCO3 ABG Total CO2 ABG O2 Saturation Sodium Potassium Chloride Carbon Dioxide BUN Creatinine Glucose POC Glucose (mg/dL) 71 L 103 H 197 H Hemoglobin A1c Plasma Lactic Acid Rohit Calcium TIBC ALT Alkaline Phosphatase Troponin I Total Protein Albumin Ur Specific [place] Urine Protein Urine Ketones Urine Blood Ur Leukocyte Esterase Urine RBC Urine WBC Urine WBC Clumps Calcium Oxalate Crystal Urine Bacteria Urine Mucus 09/13/18 09/14/18 09/14/18 20:23 03:01 03:09 WBC RBC Hgb Hct MCV MCH MCHC RDW Plt Count Neutrophils # Lymphocytes # Macrocytosis PT INR APTT D-Dimer ABG pH ABG pCO2 ABG pO2 ABG HCO3 ABG Total CO2 ABG O2 Saturation Sodium Potassium Chloride Carbon Dioxide BUN Creatinine Glucose POC Glucose (mg/dL) 207 H 339 H 69 L Hemoglobin A1c Plasma Lactic Acid Rohit Calcium TIBC ALT Alkaline Phosphatase Troponin I Total Protein Albumin Ur Specific [place] Urine Protein Urine Ketones Urine Blood Ur Leukocyte Esterase Urine RBC Urine WBC Urine WBC Clumps Calcium Oxalate Crystal Urine Bacteria Urine Mucus 09/14/18 09/14/18 09/14/18 03:14 03:32 03:32 WBC RBC 2.21 L Hgb 7.6 L Hct 24.3 L MCV 110.2 H MCH MCHC RDW 16.8 H Plt Count Neutrophils # Lymphocytes # 0.9 L Macrocytosis Marked A PT INR APTT D-Dimer ABG pH ABG pCO2 ABG pO2 ABG HCO3 ABG Total CO2 ABG O2 Saturation Sodium Potassium Chloride Carbon Dioxide BUN Creatinine Glucose 53 L POC Glucose (mg/dL) 73 L Hemoglobin A1c Plasma Lactic Acid Rohit Calcium TIBC ALT Alkaline Phosphatase Troponin I Total Protein Albumin Ur Specific [place] Urine Protein Urine Ketones Urine Blood Ur Leukocyte Esterase Urine RBC Urine WBC Urine WBC Clumps Calcium Oxalate Crystal Urine Bacteria Urine Mucus 09/14/18 09/14/18 09/15/18 16:34 20:02 03:12 WBC RBC Hgb Hct MCV MCH MCHC RDW Plt Count Neutrophils # Lymphocytes # Macrocytosis PT INR APTT D-Dimer ABG pH ABG pCO2 ABG pO2 ABG HCO3 ABG Total CO2 ABG O2 Saturation Sodium Potassium Chloride Carbon Dioxide BUN Creatinine Glucose POC Glucose (mg/dL) 191 H 147 H 101 H Hemoglobin A1c Plasma Lactic Acid Rohit Calcium TIBC ALT Alkaline Phosphatase Troponin I Total Protein Albumin Ur Specific [place] Urine Protein Urine Ketones Urine Blood Ur Leukocyte Esterase Urine RBC Urine WBC Urine WBC Clumps Calcium Oxalate Crystal Urine Bacteria Urine Mucus 09/15/18 09/15/18 09/15/18 10:01 10:01 10:01 WBC RBC 2.60 L Hgb 8.6 L Hct 29.4 L MCV 113.1 H MCH MCHC 29.3 L RDW 16.1 H Plt Count 529 H Neutrophils # Lymphocytes # Macrocytosis Marked A PT INR APTT D-Dimer ABG pH ABG pCO2 ABG pO2 ABG HCO3 ABG Total CO2 ABG O2 Saturation Sodium 136 L Potassium Chloride Carbon Dioxide 35 H BUN Creatinine Glucose POC Glucose (mg/dL) Hemoglobin A1c Plasma Lactic Acid Rohit Calcium 8.3 L TIBC 218 L ALT Alkaline Phosphatase Troponin I Total Protein Albumin Ur Specific [place] Urine Protein Urine Ketones Urine Blood Ur Leukocyte Esterase Urine RBC Urine WBC Urine WBC Clumps Calcium Oxalate Crystal Urine Bacteria Urine Mucus 09/15/18 09/15/18 09/15/18 16:52 19:57 22:23 WBC RBC Hgb Hct MCV MCH MCHC RDW Plt Count Neutrophils # Lymphocytes # Macrocytosis PT INR APTT D-Dimer ABG pH ABG pCO2 ABG pO2 ABG HCO3 ABG Total CO2 ABG O2 Saturation Sodium Potassium Chloride Carbon Dioxide BUN Creatinine Glucose POC Glucose (mg/dL) 112 H 136 H 127 H Hemoglobin A1c Plasma Lactic Acid Rohit Calcium TIBC ALT Alkaline Phosphatase Troponin I Total Protein Albumin Ur Specific [place] Urine Protein Urine Ketones Urine Blood Ur Leukocyte Esterase Urine RBC Urine WBC Urine WBC Clumps Calcium Oxalate Crystal Urine Bacteria Urine Mucus 09/16/18 09/16/18 09/16/18 13:42 14:20 14:20 WBC RBC 2.66 L Hgb 8.9 L Hct 29.7 L MCV 111.8 H MCH MCHC 29.9 L RDW 16.0 H Plt Count 597 H Neutrophils # Lymphocytes # 0.8 L Macrocytosis Marked A PT INR APTT D-Dimer ABG pH ABG pCO2 ABG pO2 ABG HCO3 ABG Total CO2 ABG O2 Saturation Sodium Potassium Chloride Carbon Dioxide BUN 6 L Creatinine 0.58 L Glucose 127 H POC Glucose (mg/dL) 145 H Hemoglobin A1c Plasma Lactic Acid Rohit Calcium 7.4 L TIBC ALT Alkaline Phosphatase Troponin I Total Protein 4.7 L Albumin 2.2 L Ur Specific [place] Urine Protein Urine Ketones Urine Blood Ur Leukocyte Esterase Urine RBC Urine WBC Urine WBC Clumps Calcium Oxalate Crystal Urine Bacteria Urine Mucus 09/16/18 09/16/18 09/16/18 14:20 15:03 15:28 WBC RBC Hgb Hct MCV MCH MCHC RDW Plt Count Neutrophils # Lymphocytes # Macrocytosis PT INR APTT D-Dimer ABG pH ABG pCO2 46 H ABG pO2 367 H ABG HCO3 30 H ABG Total CO2 31 H ABG O2 Saturation 98.0 H Sodium Potassium Chloride Carbon Dioxide BUN Creatinine Glucose POC Glucose (mg/dL) 104 H Hemoglobin A1c Plasma Lactic Acid Rohit Calcium TIBC ALT Alkaline Phosphatase Troponin I 0.049 H* Total Protein Albumin Ur Specific [place] Urine Protein Urine Ketones Urine Blood Ur Leukocyte Esterase Urine RBC Urine WBC Urine WBC Clumps Calcium Oxalate Crystal Urine Bacteria Urine Mucus Assessment and Plan Assessment: * Altered mental status, rule out acute CVA, rule out toxic metabolic encephalopathy. Patient's limited neurological examination at this time does not point towards any obvious focality. * Status post diverging colostomy for complicated diverticulitis with colovesicle fistula. * History of alcoholism * CHF with low ejection fraction 20-25%. Plan: * Patient's limited examination does not point towards any definitive focality. However we will check Stat CTA head/neck rule out large vessel occlusion. * Aspirin 300 mg rectally daily for now. * EEG to evaluate for toxic metabolic encephalopathy. * DVT prophylaxis * Your medical management. * We'll follow clinically.
[2018-09-17] MEDS: METOPROLOL TARTRATE 12.5 MG TAB PO SCH (20:12)
[2018-09-17 20:50] LABS: Glucose,Whole Blood 176 mg/dL (75-99)
[2018-09-18] MEDS: PIPERACILLIN-TAZOBACTAM 3.375 GM in SODIUM CHLORIDE 0.9% 100 ML IVPB SCH ×3 (00:16→15:59)
[2018-09-18 05:39] LABS: Basophils % (A) 0 %; Eosinophils % (A) 1 %; HCT 24.6 % (39.0-53.0); HGB 7.7 gm/dL (13.0-17.5); Hypochromasia Moderate; Lymphocytes # (A) 0.7 k/uL (1.0-4.8); Lymphocytes % (A) 13 %; MCH 34.8 pg (25.0-35.0); MCHC 31.2 g/dL (31.0-37.0); MCV 111.4 fL (80.0-100.0); Macrocytosis Marked; Mean Platelet Volume 6.9; Monocytes # (A) 0.4 k/uL (0-1.0); Monocytes % (A) 6 %; Neutrophils # (A) 4.3 k/uL (1.3-7.7); Neutrophils % (A) 77 %; Platelet Count 458 k/uL (150-450); RBC 2.21 m/uL (4.30-5.90); RDW 15.9 % (11.5-15.5); WBC 5.5 k/uL (3.8-10.6)
[2018-09-18 05:41] LABS: Glucose,Whole Blood 88 mg/dL (75-99)
[2018-09-18 06:20] LABS: ALT 27 U/L (21-72); AST 19 U/L (17-59); African American GFR (CKD) >90 (>60 ml/min/1.73 sqM); Albumin 1.9 g/dL (3.5-5.0); Alkaline Phosphatase 69 U/L (38-126); Anion Gap 0 mmol/L; Blood Urea Nitrogen 2 mg/dL (9-20); Calcium 7.7 mg/dL (8.4-10.2); Carbon Dioxide 30 mmol/L (22-30); Chloride 108 mmol/L (98-107); Glucose 75 mg/dL (74-99); Magnesium 1.9 mg/dL (1.6-2.3); Potassium 3.4 mmol/L (3.5-5.1); Sodium 138 mmol/L (137-145); Total Bilirubin 0.3 mg/dL (0.2-1.3); Total Protein 4.2 g/dL (6.3-8.2)
[2018-09-18] MEDS ORDERED: Potassium Replacement Protocol 1 EACH MISC MISCELLANE PRN (06:22)
[2018-09-18] MEDS ORDERED: Magnesium Replacement Protocol 1 EACH MISC MISCELLANE PRN (06:23)
[2018-09-18] MEDS: DEXTROSE 5%-0.9% NACL 1,000 ML IV SCH ×3 (06:49→21:21)
[2018-09-18] MEDS: INSULIN ASPART (NovoLOG) 100 UNIT/ML VIAL SQ SCH ×4 (06:50→21:22)
[2018-09-18] MEDS: POTASSIUM CHLORIDE 20 MEQ in WATER FOR INJECTION 1 100ML.BAG IVPB SCH ×2 (06:50→09:32)
[2018-09-18] MEDS: MAGNESIUM SULFATE-D5W PMX 1 GM in DEXTROSE/WATER 1 100ML.BAG IVPB SCH ×2 (06:50→08:33)
--- NOTE | 2018-09-18 06:51 | P.PN ---
Subjective This is a pleasant 73 years old male with past medical history of anemia, alcohol abuse, cigarette smoker, malnutrition. Patient states that he came to the hospital because he fell on 1919 2 PM, when he felt backwards and he hit his head. After that he was lying on the floor without losing consciousness, no dizziness or syncope prior or after the fall. He thinks that his room made Kiran or his daughter called EMS for him. Patient denies headache. No chest pain or dyspnea. He states that he has chronic cough with phlegm. No chest pain or abdominal pain. No nausea vomiting. No change in urine or bowel habits. No fever. He's not sure about his walking and how was he do one prior to fall. Patient is afebrile, blood pressure 102/73, heart rate 68, respiratory rate 21, is saturating 88% on room air. His CBC showed normal WBC, hemoglobin 9.4. Platelet 439. Electrolytes showing sodium 134, potassium 2.5, went up to 4.9. Creatinine 0.8. Glucose 115. Liver enzymes elevated rate low albumin at 2.5. TSH 3.1. CAT scan of the head showing cerebral atrophy, CT of the cervical spine showing no fracture as per radiologist. Patient has already been started on CIWA protocol. Patient admitted to the intensive care unit upon admission 09/08/2018 Patient remains in the ICU for alcohol withdrawal on CIWA protocol., Yesterday evening patient got hypoxic while he is getting the Ativan. Chest x-ray was obtained which was suspicious for COPD/pneumonia. There was concern for aspiration pneumonia. Pulmonary team was been called to evaluate the patient. Right femoral line was placed, Plata catheter with turbid urine was placed. Urinalysis was suspicious for infection. Patient was started on Zosyn. Urine culture is pending. Currently patient is saturating 97% on 6 L oxygen nasal cannula. Blood pressure is 97/54, his currently on normal saline and 1 25 mL/h. Has expiratory wheezing, Steroids is added. labs showing WBC of 10.4 K, hemoglobin 8.7. Potassium 3.3 and magnesium 2.0. Liver enzymes not elevated. 09/09/2018 Patient still generally weak although a slightly improving. He remains on CIWA protocol. He is breathing quietly however is saturating 97% on 4 L oxygen via nasal cannula. Afebrile. With no leukocytosis. Repeat chest x-ray: Bibasilar infiltrates with a small effusion. Patient remains on Zosyn for possible aspiration pneumonia and urinary tract infection. However urine culture is negative. He got Lasix yesterday. Patient on steroids for possible COPD competent. 09/10/2018 patient is seen today in the ICU. He is more awake and alert and less lethargic. The bed to chair. His breathing is better but still tachypneic. He is on 4 L oxygen today. He is afebrile. Labs from today are unremarkable including CBC and BMP. Sugar is controlled. Magnesium is 2.2. Chest x-ray: Persistent right perihilar and left basilar infiltrates. We are his steroids. He remains on antibiotics. Pulmonary input is appreciated and they are following the patient closely 09/11/2018 Patient is seen today in the general medical floor at [facility]. He was transferred out of the ICU. Patient is sitting bit more awake and alert. He is calm. Not in respiratory distress. However he still generally weak and he has a swelling in his legs and scrotum. He got 1 dose of Lasix. Or coughing, he says he comes occasionally but he says his breathing is improving. Patient with no dyspnea while at rest. We will check echocardiogram for his leg swelling. No signs symptoms of local withdrawal and his mentation is intact today. Vitals are stable. He is saturating 93% on 4 L oxygen via NC. WBC is 10.8 K, which is mildly increased. Cultures so far are negative Hemoglobin 8.0. Repeat UA still s showing infection. We will order renal ultrasound 09/12/2018 pt was send back to the ICU last night for he had stool in his urine with some resp difficulty , repeat CT of chest and abd, did not show fistula in the UB but has moderate right side pleural effusion , pt got thoracocentasis today and abou 1.2 L of greenish yellow fluid was drained , specimen was sent for cutlture, pt remians on zosyn . urologist recommended CT pelvis cystogram: enterovesical fistula, plata catheter draining clear urine for now , we will keep plata catheter. 09/13/2018 Patient is to the general medical floor today. He still feels generally weak. His breathing is much better as per patient. Repeat chest x-ray: Improved left infiltrate.. No pneumothorax. Patient has enterovesical fistula. But no urinary symptoms and abdominal exam is soft. His currently on Zosyn. And urological team are following the patient 09/14/2018 pt is in general medical floor, his breathing is stable , no chest or abd pain , he is fully awake but severely generally weak , he has several medical problems going on , including alcohol abuse history , alcohol withdrawal, chest infection and fluid which was drained and entero-vesical fistula and de-conditioning, diverticulitis and UTI, infectious disease input is appreciated , stop vancomycin and start daptomycin and continue with zosyn , pt is possibly going for colonoscopy tomorrow with the surgical team , also pt has hypoglycemia from malnutrition and extensive history of alcoholism although he is not on diabetic medication , discussed the case with the sketcher who will evaluate him today 09/15/2018 Patient is breathing is stable. He denies abdominal pain. No nausea or vomiting. He is hemodynamically stable. leukocytosis. Hemoglobin is 8.6. BMP is unremarkable. Sugar is controlled. Iron study showing anemia of chronic disease. B12 is 508, and folate 19.2. Infectious disease saw the patient and they switch his antibiotics to daptomycin and Zosyn. Patient possibly going for colonoscopy tomorrow. 09/16/2018 patient lying in bed, with no respiratory distress, no chest pain or abdominal pain, is fully awake. He had colonoscopy todaywhich could not be advanced beyond the sigid colon secondary to inflammatory changes of the bowel and call of the cycle fistula as per surgeons.we will discuss with surgeons about their next step whether the patient is going to need surgery or not. Patient remains to have Plata catheter with clear urine draining 09/17/2018 pt admitted with alcohol abuse and withdrawal, after stabilization , he was found to have enterovesical fistula, pt is status post diverting colostomy , pt was in the icu this morning , he is status intubation and extubation , he is hemodynamically stable, wbc 5.5K, Hb 7.7, creatinine 0.5. he is on daptomycin and zosyn for diverticulitis. pt is still in critical condition Objective - Vital Signs Vital signs: Vital Signs Temp 98.0 F 09/17/18 20:00 Pulse 71 09/17/18 21:00 Resp 17 09/17/18 21:00 BP 122/67 09/17/18 21:00 Pulse Ox 99 09/17/18 21:00 Intake & Output 09/17/18 09/17/18 09/18/18 06:59 18:59 06:59 Intake Total 2251.710 4501.30 400 Output Total 700 775 145 Balance 1036.236 968.30 255 Weight 68.6 kg Intake: IV 1675 1475 400 DAPTOmycin 300 mg In 50 Sodium Chloride 0.9% 50 ml @ 100 mls/hr IVPB Q24HR SANDY Rx#:[id number] Dextrose 5%-0.9% NaCl 1, 1375 1250 375 000 ml @ 125 mls/hr IV . Q8H SANDY Rx#:[id number] Piperacillin-Tazobactam 3 100 175 25 .375 gm In Sodium Chloride 0.9% 100 ml @ 25 mls/hr IVPB Q8HR SANDY Rx# :[id number] Sodium Chloride 0.9% 1, 200 000 ml @ 20 mls/hr IV . Q24H SANDY Rx#:[id number] Intake, IV Titration 61.236 68.30 Amount Propofol 1,000 mg In 61.236 68.30 Empty Bag 1 bag @ Titrate IV .Q0M SANDY Rx#: [id number] Oral 200 Output: Urine 700 775 145 Other: Voiding Method Indwelling Catheter Indwelling Catheter Indwelling Catheter ABP, PAP, CO, CI - Last Documented Arterial Blood Pressure 139/55 - Exam -GENERAL: The patient is alert and oriented x3, not in any acute distress. He is weak and lethargic. he is malnourished. HEENT: Pupils are round and equally reacting to light. EOMI. No scleral icterus. No conjunctival pallor. Normocephalic, atraumatic. No pharyngeal erythema. No thyromegaly. CARDIOVASCULAR: S1 and S2 present. No murmurs, rubs, or gallops. PULMONARY: Chest is clear to auscultation, no wheezing or crackles. -ABDOMEN: Soft, nontender, nondistended, normoactive bowel sounds. No palpable organomegaly. Has Plata catheter in a Place. He has right femoral central line MUSCULOSKELETAL: No joint swelling or deformity. EXTREMITIES: No cyanosis, clubbing, or pedal edema. NEUROLOGICAL: Gross neurological examination did not reveal any focal deficits. SKIN: No rashes. - Labs CBC & Chem 7: 09/18/18 05:00 09/18/18 05:00 Labs: Abnormal Lab Results - Last 24 Hours (Table) 09/16/18 09/17/18 09/17/18 Range/Units 23:50 05:35 05:35 RBC 2.24 L (4.30-5.90) m/uL Hgb 7.5 L (13.0-17.5) gm/dL Hct 24.2 L (39.0-53.0) % MCV 108.3 H (80.0-100.0) fL RDW 16.3 H (11.5-15.5) % Plt Count 451 H (150-450) k/uL Lymphocytes # 0.7 L (1.0-4.8) k/uL Macrocytosis Marked A ABG pH (7.35-7.45) ABG pO2 (83-108) mmHg ABG HCO3 (21-25) mmol/L ABG Total CO2 (19-24) mmol/L ABG O2 Saturation (94-97) % Sodium 136 L (137-145) mmol/L Potassium 3.3 L (3.5-5.1) mmol/L BUN 4 L (9-20) mg/dL Creatinine 0.52 L (0.66-1.25) mg/dL Glucose 135 H (74-99) mg/dL POC Glucose (mg/dL) (75-99) mg/dL Calcium 7.6 L (8.4-10.2) mg/dL Troponin I 0.037 H* (0.000-0.034) ng/mL Total Protein 4.1 L (6.3-8.2) g/dL Albumin 1.9 L (3.5-5.0) g/dL 09/17/18 09/17/18 09/17/18 Range/Units 05:35 05:54 06:57 RBC (4.30-5.90) m/uL Hgb (13.0-17.5) gm/dL Hct (39.0-53.0) % MCV (80.0-100.0) fL RDW (11.5-15.5) % Plt Count (150-450) k/uL Lymphocytes # (1.0-4.8) k/uL Macrocytosis ABG pH 7.55 H (7.35-7.45) ABG pO2 166 H (83-108) mmHg ABG HCO3 31 H (21-25) mmol/L ABG Total CO2 32 H (19-24) mmol/L ABG O2 Saturation 99.0 H (94-97) % Sodium (137-145) mmol/L Potassium (3.5-5.1) mmol/L BUN (9-20) mg/dL Creatinine (0.66-1.25) mg/dL Glucose (74-99) mg/dL POC Glucose (mg/dL) 117 H (75-99) mg/dL Calcium (8.4-10.2) mg/dL Troponin I 0.039 H* (0.000-0.034) ng/mL Total Protein (6.3-8.2) g/dL Albumin (3.5-5.0) g/dL 09/17/18 09/17/18 09/17/18 Range/Units 10:22 11:57 17:49 RBC (4.30-5.90) m/uL Hgb (13.0-17.5) gm/dL Hct (39.0-53.0) % MCV (80.0-100.0) fL RDW (11.5-15.5) % Plt Count (150-450) k/uL Lymphocytes # (1.0-4.8) k/uL Macrocytosis ABG pH 7.47 H (7.35-7.45) ABG pO2 (83-108) mmHg ABG HCO3 31 H (21-25) mmol/L ABG Total CO2 32 H (19-24) mmol/L ABG O2 Saturation (94-97) % Sodium (137-145) mmol/L Potassium (3.5-5.1) mmol/L BUN (9-20) mg/dL Creatinine (0.66-1.25) mg/dL Glucose (74-99) mg/dL POC Glucose (mg/dL) 126 H 174 H (75-99) mg/dL Calcium (8.4-10.2) mg/dL Troponin I (0.000-0.034) ng/mL Total Protein (6.3-8.2) g/dL Albumin (3.5-5.0) g/dL 09/17/18 Range/Units 20:45 RBC (4.30-5.90) m/uL Hgb (13.0-17.5) gm/dL Hct (39.0-53.0) % MCV (80.0-100.0) fL RDW (11.5-15.5) % Plt Count (150-450) k/uL Lymphocytes # (1.0-4.8) k/uL Macrocytosis ABG pH (7.35-7.45) ABG pO2 (83-108) mmHg ABG HCO3 (21-25) mmol/L ABG Total CO2 (19-24) mmol/L ABG O2 Saturation (94-97) % Sodium (137-145) mmol/L Potassium (3.5-5.1) mmol/L BUN (9-20) mg/dL Creatinine (0.66-1.25) mg/dL Glucose (74-99) mg/dL POC Glucose (mg/dL) 176 H (75-99) mg/dL Calcium (8.4-10.2) mg/dL Troponin I (0.000-0.034) ng/mL Total Protein (6.3-8.2) g/dL Albumin (3.5-5.0) g/dL Microbiology - Last 24 Hours (Table) 09/12/18 13:26 Gram Stain - Final Pleural Fluid Body Fluid Culture - Final Assessment and Plan Assessment: enterovesical fistula diverticulitis uti , complicated Fall Alcohol withdrawal, with delirium tremens Acute hypoxic respiratory failure Possible aspiration pneumonia Acute COPD exacerbation Dehydration and hypovolemia. Hypokalemia Alcohol abuse Nicotine dependence Anemia calories-protein malnutrition Plan: This is a pleasant 73 years old male who presents because of alcohol withdrawal and fall found to have COPD exacerbation/pneumonia, UTI. Pulmonary/critical care team input is appreciated. Continue with antibiotics and IV fluids., . Continue with CIWA protocol. Continue with vitamins. Continue with gentle hydration. Replace electrolytes and monitors them. follow-up culture results Labs and medication were reviewed.. Continue same treatment. Continue with symptomatic treatment. Resume home medication. Monitor lytes and vitals. DVT and GI prophylaxis. Further recommendations of the clinical course of the patient DVT prophylaxis: Subcutaneous heparin GI Prophylaxis: Pepcid PT/OT: Pending Prognosis is guarded
[2018-09-18] MEDS: THIAMINE 100 MG TAB PO SCH ×2 (06:53→17:48)
--- NOTE | 2018-09-18 07:17 | XR ---
EXAMINATION TYPE: XR chest 1V DATE OF EXAM: 09/18/2018 HISTORY: PNU. REFERENCE: Previous study dated 09/17/2018. FINDINGS: The patient has been extubated. The patient is NG tube is been removed. There are bilateral effusions. There is bibasilar airspace disease. The heart is not enlarged. IMPRESSION: NO SIGNIFICANT INTERVAL CHANGE IN THE APPEARANCE OF THE CHEST.
[2018-09-18] MEDS: HEPARIN SODIUM,PORCINE 5,000 UNIT/ML 1 ML VIAL SQ SCH ×2 (08:09→21:21)
[2018-09-18] MEDS: PANTOPRAZOLE 40 MG/10 ML VIAL IVP SCH (08:14)
[2018-09-18] MEDS: MULTIVITAMINS, THERA 1 EACH TAB PO SCH (08:20)
[2018-09-18] MEDS: predniSONE 10 MG TAB PO SCH (08:20)
[2018-09-18] MEDS: METOPROLOL TARTRATE 12.5 MG TAB PO SCH ×2 (08:23→21:22)
--- NOTE | 2018-09-18 10:24 | P.PN ---
Subjective Progress Note Date: 09/18/18 Principal diagnosis: status post diverging colostomy postoperative day # 2 This is a 73-year-old white male patient with history of chronic alcoholism, chronic smoker, chronic anemia, previous pneumonia, malnutrition related to history of alcoholism, was in to the hospital on 09/06/2018 for evaluation of falls at home. Patient was brought in by an ambulance, and reportedly he tripped while walking and fell backwards hitting back of his head on the fridge. There was no loss of consciousness at the time of the incident, and patient's daughter called the ambulance with the patient for evaluation. The patient was drinking prior to the incident. He denies any headaches, lightheadedness, dizziness, denied any vision changes, no nausea vomiting or diarrhea. Not on any blood thinners. CT of the head and cervical spine was completed and showed moderate cerebral atrophy, no acute intracranial abnormality and mild spondylosis at C6 and 7 no acute fractures were seen. He was kept overnight in the emergency department, he was started on CIWA protocol for acute alcohol withdrawal syndrome. Lab work was completed in the emergency department and showed a white blood cell count of 6.1, hemoglobin of 9.4, sodium was 134, potassium is 2.5 and this was replaced per protocol, chloride was 94, CO2 is 31, BUN was 13 creatinine was 0.87, AST is 31, ALT was 20, alkaline phosphatase was 147, proBNP was 525. Patient was noted to have decreased oxygenation, decreased sats, after Ativan was given proceed with protocol. His decreased air movement auscultated on the left side, he was placed on 100% nonrebreather and his pulse ox is 88-89%, chest x-ray was obtained, showing stable left-sided consolidation and pleural effusion, hemodynamically related to aspiration pneumonia and asymmetric pulmonary edema. She was started on breathing treatments, antibiotics in the form of Zosyn, and is admitted to the intensive care unit for closer monitoring. She was given IV hydration in the emergency department with a liter bolus, and maintenance IV is 0.9 normal saline at a rate of 50 ML per hour. During my evaluation patient is quite lethargic, but opens eyes to verbal stimuli, and he is quite confused, he is only oriented to person, and he thinks he is in [place], he remains on 100% nonrebreather his current pulse ox is 90-92%, hemodynamically stable, blood pressure is 112/86, afebrile. on today's evaluation of 09/08/2018, the patient was seen quite awake and alert this morning. There has been improvement in the mental status since yesterday. Overnight, the patient was brought into the intensive care because of an aspiration. Significant diminished breath sounds in the left lung base along with some volume loss in the chest x-ray. He was placed on on the percent nonrebreather facemask. He was given aggressive chest PT. He was kept nothing by mouth. Overnight he improved and earlier this morning he was weaned down to 6 L about 2 by nasal cannula and he was able to maintain a saturation above 90%. His breathing was not labored. He had a congested cough. Unable to bring up much sputum. The cough strength has improved compared to yesterday. He has no signs of any agitation. In fact neurologically seemed to do much more alert and awake and following commands and responding to questions. Later on by early afternoon, the patient became more confused and restless. At that point we implemented this CIWA protocol and the patient was given Ativan which controlled his been eating. The patient is currently on antibiotics. The patient on IV Zosyn. The chest x-ray from today shows showed volume loss in the right lung base along with development of bilateral pleural effusion. Based on all this, I kept on the IV fluids to KVO. I gave the patient dose of Lasix 40 mg IV push and following that the patient producing adequate amount of urine output in the order of 750 mL. He remains in oxygen by nasal cannula at 6 L. Significant leukocytosis. Hemoglobin stable at 8.7. Function is stable. No other significant events otherwise for now. The main concern for now is his concern for pneumonia, respiratory failure and early a.m. His cough and mechanism has improved although it remains quite weak and somewhat ineffective and performing adequate pulmonary toileting. On 09/09/2018, the patient remains quite lethargic yet arousable. Chest x-ray still showing bilateral basal infiltrate and small better pleural effusion. His cough and presented to bring up much of sputum and his cough is weak. He is receiving PT. He is on 40% oxygen nasal cannula and his pulse is now 94%. I think that there is some aspiration related mucous plugs which the patient is unable to cough out. Nevertheless, despite his x-ray findings, he still breathing comfortably on 4 L of oxygen nasal cannula. No chest pain. No hemoptysis. No pleurisy. No agitation. He is breathing is nonlabored. He is receiving IV Zosyn. He is on IV Solu Medrol 40 mg every 8 hours. He is on DuoNeb nebulized treatments around the clock. His ammonia level is less than 9. On 09/10/2018, the patient is doing progress. He seems to be more awake. Is a ble to cough more effectively. His FiO2 has improved and is down to 40s about 2 by nasal cannula. His breathing is nonlabored. Chest x-ray showing bilateral consolidation lower lobe effusions. No chest pain. No aspiration. Is tolerating his diet is on DuoNeb nebulized treatment [id number] is on IV Solu-Medrol. He is on IV Zosyn. He is able to sit up on a chair. He remains quite weak and lethargic yet interactive and more talkative and communicating compared to yesterday. No focal neurological deficits for now. His urine remains quite cloudy and there is significant amount of sediment. The previously sent culture was contaminant and for that reason we sent another UA and urine culture. UA came back positive for white cells along with few clumps and there was occasional bacteria. There was also some crystals. Cultures are still pending for now. The patient is still on IV Zosyn. No seizure activity. No visual or auditory hallucinations on today's evaluation. On 09/11/2018, the patient is being seen in the medical floor. He is doing well. No significant complaints for now. He seems to much more alert and awake. No hallucinations. No delusions. No tremors. No altered mentation. Echocardiogram is to be done today. No significant respiratory distress. Currently he is on 4 L of oxygen nasal cannula. He was diuresed with IV Lasix and the dose of Lasix was given to him overnight. He is on a IV Solu Medrol which will be tapered down to prednisone burst taper. He is tolerating his diet. No nausea. No vomiting. Urine culture is still pending for now. Meanwhile, the patient does not show any signs of septicemia. He remains on IV Zosyn. On 09/12/2018, the patient got transferred back to the intensive care unit. Overnight the patient became more short of breath, lethargic, hypoxic, and he was found to have significant abdominal distention. I recommended an NG tube placement. Following that, the patient was sent for a CAT scan of the chest and abdomen and it showed emphysema, bilateral multifocal pneumonia, bilateral pleural effusion right more than left, and no acute intra-abdominal findings. NG tube was removed 9 GERD output was minimal. The patient this morning is feeling much better. His lactic acid levels are improving. He has no chest pain. No minutes cough without any significant sputum production. He was given a dose of Lasix following which produced excellent urine output. He has a Benedict catheter in place. The urine quality has improved symptomatically at this point in time nontender this was very cloudy and purulent. Cultures of been negative. The patient remains on IV Zosyn. Right-sided thoracentesis is being considered for now. On 09/13/2018, the patient is doing well. No respiratory distress. I performed a thoracentesis on him yesterday and total of 1 L of pleural fluid was aspirated from the right lung. Chest x-ray from today shows a small amount of effusion the left. He is swallowing well. No aspiration or sputum production. No respiratory distress. He is on 40s about 2 by nasal cannula. Meanwhile, the Benedict cath is in place. The urine output for now is quite clean. 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 This explains the constant abnormalities in the urine analysis is worsening in this patient. He remains on IV Zosyn. Gen. surgery has been consulted regarding a fistulous connection between the bladder and the sigmoid colon. No abdominal pain. No signs of any septicemia for the time being. Benedict catheter will be kept in place. On 09/06/2018 patient seen in follow-up on medical surgical floor. is resting comfortably in bed, in no acute distress, he is awake, alert to person, place, disoriented to time, but he knew who the president was. afebrile, hemodynamically stable, denies any difficulty breathing, lung sounds are reveal diffuse wheezes,patient is on oral prednisone, Zosyn for antibiotic coverage. No signs of DTs.his labs have been reviewed and showed white blood cell count is 5.7, hemoglobin is 7.6, serum phosphorus was 3.7, magnesium was 2.3. BMP was not done. On 09/15/2018 patient is seen in follow-up on medical surgical floor. Patient is resting in bed, he denies any acute distress, lung sounds are positive for a few scattered rales and wheezes, Nonproductive Cough. No signs of DTs. No complaints of worsening dyspnea, chest pain, cough or congestion. Remains on oral prednisone, Zosyn and Daptomycin for antibiotic coverage, patient is scheduled for colonoscopy sometime tomorrow. Benedict catheter remains in place and is draining clear yellow urine. His labs have been reviewed serum sodium is 1.36, potassium is 4.3, chloride is 100, CO2 is 35, BUN is 9 creatinine 0.69. 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 Patient was extubated initially in the or, however did not tolerate the extubation, ended up reintubated, sent back to the ICU on mechanical ventilation. Presently the patient is in the ICU on mechanical ventilation. And his ventilator settings are tidal volume of 500, assist control rate of 12, FiO2 was cut down from 100% to 40%, and PEEP at 5.ABG on on the percent showed a pO2 of 367 pCO2 of 46, and pH of 7.42. Patient was noted to have low blood pressure, hence I recommended a fluid bolus of 500 mL of 0.9 normal saline, recommended cutting down on his propofol, and if needed to start the patient on norepinephrine. Chest x-ray postoperatively showedhigh placement of the endotracheal tube, hence recommended advancement of the endotracheal tube by to see him. There was evidence of small left-sided pleural effusion and atelectasis, and findings consistent with COPD.all labs from earlier today were reviewed, he had a relatively normal electrolytes and the relatively normal CBC.hemoglobin was noted to be 8.9 earlier.shortly after he arrived to the ICU, patient was noted to have some left-sided weakness, and possibility of CVA was entertained. Hence CT of the brainwas done, it showed no acute intracranial hemorrhage no midline shift or mass effect there was evidence of diffuse mucoperiosteal thickening consistent with chronic sinusitis. And there was age related atrophy and nonspecific. Ne urology was consulted regarding his new change in neurological status. CT angiogram of the brain was also ordered and relatively unremarkable. Patient was reevaluated today on 09/17/2018, his postoperative day #1, patient remains on mechanical ventilation. About an hour ago, patient was taken off propofol. He was switched about half an hour ago to pressure support of 8 and CPAP. ABG on that setting showed a pO2 of 85 pCO2 of 43 pH of 7.47. Patient was assessed, and his weaning parameters seem to be reasonable. Chest x-ray shows some small left pleural effusion and atelectasis at the bases. Patient is awake, alert, follows all instructions, and the left-sided weakness which she had yesterday apparently resolved. Hence I recommended extubating the patient. Patient was reevaluated today on 09/18/2018, he is postoperative day #2. Patient was extubated yesterday, tolerated the extubation quite well, he is presently on few liters nasal cannula. Asymptomatic, no cough no wheezing no shortness of breath, patient is quite comfortable in bed. He is hemodynamically stable. Chest x-ray shows small bilateral pleural effusions. And it showed minimal bibasilar atelectasis. WBC count is 5.5 hemoglobin is 7.7 basic metabolic profile is normal potassium is 3.4 being corrected as per protocol. Objective - Vital Signs Vital signs: Vital Signs Temp 98.1 F 09/18/18 08:00 Pulse 55 L 09/18/18 10:00 Resp 27 H 09/18/18 10:00 BP 153/81 09/18/18 10:00 Pulse Ox 98 09/18/18 10:00 Intake & Output 09/17/18 09/18/18 09/18/18 18:59 06:59 18:59 Intake Total 1743.30 2250 650 Output Total 775 855 250 Balance 968.30 1395 400 Weight 71.9 kg Intake: IV 1475 1950 650 DAPTOmycin 300 mg In 50 100 Sodium Chloride 0.9% 50 ml @ 100 mls/hr IVPB Q24HR SANDY Rx#:[id number] Dextrose 5%-0.9% NaCl 1, 1250 1625 250 000 ml @ 125 mls/hr IV . Q8H SANDY Rx#:[id number] Magnesium Sulfate-D5w Pmx 100 100 1 gm In Dextrose/Water 1 100ml.bag @ 100 mls/hr IVPB Q1H [facility]Y Rx#: [id number] Piperacillin-Tazobactam 3 175 125 100 .375 gm In Sodium Chloride 0.9% 100 ml @ 25 mls/hr IVPB Q8HR [facility]Y Rx# :[id number] Potassium Chloride 20 meq 100 100 In Water For Injection 1 100ml.bag @ 50 mls/hr IVPB Q2H [facility]Y Rx#: [id number] Intake, IV Titration 68.30 Amount Propofol 1,000 mg In 68.30 Empty Bag 1 bag @ Titrate IV .Q0M S[facility]Y Rx#: [id number] Oral 200 300 Output: Urine 775 855 250 Other: Voiding Method Indwelling Catheter Indwelling Catheter Indwelling Catheter ABP, PAP, CO, CI - Last Documented Arterial Blood Pressure 136/63 - Exam GENERAL EXAM: revealed 73-year-old white male on nasal cannula, in no distress. Very comfortable. HEENT: PERRLA, EOMI, , no neck masses, no JVD. CHEST: No chest wall deformity. Symmetrical expansion. LUNGS: Diminished breath sounds at the bases no crackles or rhonchi or wheezes.. CVS: Regular rate and rhythm, normal S1 and S2, no gallops, no murmurs, no rubs ABDOMEN: postsurgical, surgical dressings seems to be clean and dry, colostomy is intact.Soft, nontender. No hepatosplenomegaly, normal bowel sounds, no guarding or rigidity. Triple-lumen catheter noted in the right groin and this will be discontinued today. EXTREMITIES: No clubbing, no edema, no cyanosis, 2+ pulses and upper and lower extremities SKIN: No rashes CENTRAL NERVOUS SYSTEM: Awake alert, no gross focal neurologic deficits. PSYCHIATRIC: Alert oriented 3, no gross focal neurologic deficit. - Labs CBC & Chem 7: 09/18/18 05:00 09/18/18 05:00 Labs: Abnormal Lab Results - Last 24 Hours (Table) 09/17/18 09/17/18 09/17/18 Range/Units 10:22 11:57 17:49 RBC (4.30-5.90) m/uL Hgb (13.0-17.5) gm/dL Hct (39.0-53.0) % MCV (80.0-100.0) fL RDW (11.5-15.5) % Plt Count (150-450) k/uL Lymphocytes # (1.0-4.8) k/uL Macrocytosis ABG pH 7.47 H (7.35-7.45) ABG HCO3 31 H (21-25) mmol/L ABG Total CO2 32 H (19-24) mmol/L Potassium (3.5-5.1) mmol/L Chloride (98-107) mmol/L BUN (9-20) mg/dL Creatinine (0.66-1.25) mg/dL POC Glucose (mg/dL) 126 H 174 H (75-99) mg/dL Calcium (8.4-10.2) mg/dL Total Protein (6.3-8.2) g/dL Albumin (3.5-5.0) g/dL 09/17/18 09/18/18 09/18/18 Range/Units 20:45 05:00 05:00 RBC 2.21 L (4.30-5.90) m/uL Hgb 7.7 L (13.0-17.5) gm/dL Hct 24.6 L (39.0-53.0) % MCV 111.4 H (80.0-100.0) fL RDW 15.9 H (11.5-15.5) % Plt Count 458 H (150-450) k/uL Lymphocytes # 0.7 L (1.0-4.8) k/uL Macrocytosis Marked A ABG pH (7.35-7.45) ABG HCO3 (21-25) mmol/L ABG Total CO2 (19-24) mmol/L Potassium 3.4 L (3.5-5.1) mmol/L Chloride 108 H (98-107) mmol/L BUN 2 L (9-20) mg/dL Creatinine 0.53 L (0.66-1.25) mg/dL POC Glucose (mg/dL) 176 H (75-99) mg/dL Calcium 7.7 L (8.4-10.2) mg/dL Total Protein 4.2 L (6.3-8.2) g/dL Albumin 1.9 L (3.5-5.0) g/dL Assessment and Plan Assessment: impression: 1 status post diverting colostomy, presently on mechanical ventilation, postoperative day #2 2: The colovesical fistula, being addressed by surgery on the case, and is status post diverting colostomy. 3 urinary tract infection secondary to enterococcus, remains on daptomycin. And he is also on Zosyn. #4. Acute delirium, related to acute alcohol withdrawal syndrome, resolved. #5. Alcohol intoxication, resolved. #6. Electrolyte abnormalities including mild hyponatremia, severe hypokalemia, hypochloremia, and increased CO2, hemodynamically related to patient's chronic alcoholism, poor nutrition, and dehydration, significantly improved. And being addressed as per protocol. #7. Chronic anemia #8. Chronic cigarette smoker, counseled regarding smoking cessation. #9. Chronic alcoholism with underlying malnutrition #10. Previous episode of pneumonia involving the left lower lobe in 2016 #11. Generalized weakness and debility and malnourishment , improving. #12 left-sided weakness, resolved, most likely secondary to TIA. Recommendation: Patient was extubated yesterday, tolerated the extubation well, presently on nasal cannula, incentive spirometry, bronchodilators, antibiotics, will plan to remove the right femoral triple-lumen catheter today, will likely arrange for the patient to be transferred to a medical surgical floor, condition remains guarded considering his multiple medical problems as listed above. We'll continue to follow. Patient will be ambulated, may even a require long- term rehab facility. Time with Patient: Less than 30
[2018-09-18] MEDS: ASPIRIN 325 MG TAB PO SCH (11:12)
[2018-09-18] MEDS: HYDROmorphone 1 MG/ML 1 ML SYRINGE IM PRN (11:26)
[2018-09-18] MEDS: IPRATROPIUM-ALBUTEROL 3 ML NEB INHALATION PRN ×2 (11:55→16:34)
[2018-09-18 12:06] LABS: Glucose,Whole Blood 128 mg/dL (75-99)
--- NOTE | 2018-09-18 13:53 | P.PN ---
Subjective Progress Note Date: 09/18/18 This is a 73-year-old white male patient with history of chronic alcoholism, chronic smoker, chronic anemia, previous pneumonia, malnutrition related to history of alcoholism, was in to the hospital on 09/06/2018 for evaluation of falls at home. Patient was brought in by an ambulance, and reportedly he t ripped while walking and fell backwards hitting back of his head on the fridge. There was no loss of consciousness at the time of the incident, and patient's daughter called the ambulance with the patient for evaluation. The patient was drinking prior to the incident. 09/18/2018, Patient is seen and evaluated in ICU at bedside; he is postoperative day #2. Patient was extubated yesterday, tolerated the extubation quite well, he is presently on few liters nasal cannula. Asymptomatic, no cough no wheezing no shortness of breath, patient is quite comfortable in bed. He is hemodynamically stable. Chest x-ray shows small bilateral pleural effusions. And it showed minimal bibasilar atelectasis. WBC count is 5.5 hemoglobin is 7.7 basic metabolic profile is normal potassium is 3.4 being corrected as per protocol Patient is cleared for transfer to medical floor by pelletizer tender service Objective - Vital Signs Vital signs: Vital Signs Temp 98.0 F 09/17/18 20:00 Pulse 71 09/17/18 21:00 Resp 17 09/17/18 21:00 BP 122/67 09/17/18 21:00 Pulse Ox 99 09/17/18 21:00 Intake & Output 09/17/18 09/17/18 09/18/18 06:59 18:59 06:59 Intake Total 4659.036 0781.30 400 Output Total 700 775 145 Balance 1036.236 968.30 255 Weight 68.6 kg Intake: IV 1675 1475 400 DAPTOmycin 300 mg In 50 Sodium Chloride 0.9% 50 ml @ 100 mls/hr IVPB Q24HR [facility] Rx#:[id number] Dextrose 5%-0.9% NaCl 1, 1375 1250 375 000 ml @ 125 mls/hr IV . Q8H [facility] Rx#:[id number] Piperacillin-Tazobactam 3 100 175 25 .375 gm In Sodium Chloride 0.9% 100 ml @ 25 mls/hr IVPB Q8HR [facility] Rx# :[id number] Sodium Chloride 0.9% 1, 200 000 ml @ 20 mls/hr IV . Q24H [facility] Rx#:[id number] Intake, IV Titration 61.236 68.30 Amount Propofol 1,000 mg In 61.236 68.30 Empty Bag 1 bag @ Titrate IV .Q0M [facility] Rx#: [id number] Oral 200 Output: Urine 700 775 145 Other: Voiding Method Indwelling Catheter Indwelling Catheter Indwelling Catheter ABP, PAP, CO, CI - Last Documented Arterial Blood Pressure 139/55 - Exam - Constitutional General appearance: Present: average body habitus, cooperative, no acute distress - EENT Eyes: Present: anicteric sclerae, EOMI, PERRLA, normal appearance - Neck Neck: Present: normal ROM. Absent: lymphadenopathy, rigidity, thyromegaly Carotids: negative: bruit present Thyroid: bilateral: normal size, negative: enlarged, nodule - Respiratory Respiratory: bilateral: CTA, negative: rales, rhonchi, wheezing - Cardiovascular Rhythm: regular Heart sounds: normal: S1, S2 Abnormal Heart Sounds: Absent: systolic murmur, diastolic murmur - Gastrointestinal General gastrointestinal: Present: normal bowel sounds, soft. Absent: distended, organomegaly, tenderness - Integumentary Integumentary: Present: normal turgor. Absent: jaundiced, rash, ulcer - Labs CBC & Chem 7: 09/18/18 05:00 09/18/18 12:30 Labs: Abnormal Lab Results - Last 24 Hours (Table) 09/16/18 09/17/18 09/17/18 Range/Units 23:50 05:35 05:35 RBC 2.24 L (4.30-5.90) m/uL Hgb 7.5 L (13.0-17.5) gm/dL Hct 24.2 L (39.0-53.0) % MCV 108.3 H (80.0-100.0) fL RDW 16.3 H (11.5-15.5) % Plt Count 451 H (150-450) k/uL Lymphocytes # 0.7 L (1.0-4.8) k/uL Macrocytosis Marked A ABG pH (7.35-7.45) ABG pO2 (83-108) mmHg ABG HCO3 (21-25) mmol/L ABG Total CO2 (19-24) mmol/L ABG O2 Saturation (94-97) % Sodium 136 L (137-145) mmol/L Potassium 3.3 L (3.5-5.1) mmol/L BUN 4 L (9-20) mg/dL Creatinine 0.52 L (0.66-1.25) mg/dL Glucose 135 H (74-99) mg/dL POC Glucose (mg/dL) (75-99) mg/dL Calcium 7.6 L (8.4-10.2) mg/dL Troponin I 0.037 H* (0.000-0.034) ng/mL Total Protein 4.1 L (6.3-8.2) g/dL Albumin 1.9 L (3.5-5.0) g/dL 09/17/18 09/17/18 09/17/18 Range/Units 05:35 05:54 06:57 RBC (4.30-5.90) m/uL Hgb (13.0-17.5) gm/dL Hct (39.0-53.0) % MCV (80.0-100.0) fL RDW (11.5-15.5) % Plt Count (150-450) k/uL Lymphocytes # (1.0-4.8) k/uL Macrocytosis ABG pH 7.55 H (7.35-7.45) ABG pO2 166 H (83-108) mmHg ABG HCO3 31 H (21-25) mmol/L ABG Total CO2 32 H (19-24) mmol/L ABG O2 Saturation 99.0 H (94-97) % Sodium (137-145) mmol/L Potassium (3.5-5.1) mmol/L BUN (9-20) mg/dL Creatinine (0.66-1.25) mg/dL Glucose (74-99) mg/dL POC Glucose (mg/dL) 117 H (75-99) mg/dL Calcium (8.4-10.2) mg/dL Troponin I 0.039 H* (0.000-0.034) ng/mL Total Protein (6.3-8.2) g/dL Albumin (3.5-5.0) g/dL 09/17/18 09/17/18 09/17/18 Range/Units 10:22 11:57 17:49 RBC (4.30-5.90) m/uL Hgb (13.0-17.5) gm/dL Hct (39.0-53.0) % MCV (80.0-100.0) fL RDW (11.5-15.5) % Plt Count (150-450) k/uL Lymphocytes # (1.0-4.8) k/uL Macrocytosis ABG pH 7.47 H (7.35-7.45) ABG pO2 (83-108) mmHg ABG HCO3 31 H (21-25) mmol/L ABG Total CO2 32 H (19-24) mmol/L ABG O2 Saturation (94-97) % Sodium (137-145) mmol/L Potassium (3.5-5.1) mmol/L BUN (9-20) mg/dL Creatinine (0.66-1.25) mg/dL Glucose (74-99) mg/dL POC Glucose (mg/dL) 126 H 174 H (75-99) mg/dL Calcium (8.4-10.2) mg/dL Troponin I (0.000-0.034) ng/mL Total Protein (6.3-8.2) g/dL Albumin (3.5-5.0) g/dL 09/17/18 Range/Units 20:45 RBC (4.30-5.90) m/uL Hgb (13.0-17.5) gm/dL Hct (39.0-53.0) % MCV (80.0-100.0) fL RDW (11.5-15.5) % Plt Count (150-450) k/uL Lymphocytes # (1.0-4.8) k/uL Macrocytosis ABG pH (7.35-7.45) ABG pO2 (83-108) mmHg ABG HCO3 (21-25) mmol/L ABG Total CO2 (19-24) mmol/L ABG O2 Saturation (94-97) % Sodium (137-145) mmol/L Potassium (3.5-5.1) mmol/L BUN (9-20) mg/dL Creatinine (0.66-1.25) mg/dL Glucose (74-99) mg/dL POC Glucose (mg/dL) 176 H (75-99) mg/dL Calcium (8.4-10.2) mg/dL Troponin I (0.000-0.034) ng/mL Total Protein (6.3-8.2) g/dL Albumin (3.5-5.0) g/dL Assessment and Plan Assessment: 1 status post diverting colostomy; postoperative day #2 2: The colovesical fistula, being addressed by surgery on the case, and is status post diverting colostomy. 3 urinary tract infection secondary to enterococcus, remains on daptomycin. And he is also on Zosyn. #4. Acute delirium, related to acute alcohol withdrawal syndrome, resolved. #5. Alcohol intoxication, resolved. #6. Electrolyte abnormalities including mild hyponatremia, severe hypokalemia, hypochloremia, and increased CO2, hemodynamically related to patient's chronic alcoholism, poor nutrition, and dehydration, significantly improved. And being addressed as per protocol. #7. Chronic anemia #8. Chronic cigarette smoker, counseled regarding smoking cessation. #9. Chronic alcoholism with underlying malnutrition #10. Previous episode of pneumonia involving the left lower lobe in 2016 #11. Generalized weakness and debility and malnourishment , improving. #12 left-sided weakness, resolved, most likely secondary to TIA. Time with Patient: Greater than 30
[2018-09-18 16:57] LABS: Glucose,Whole Blood 183 mg/dL (75-99)
--- NOTE | 2018-09-18 17:37 | P.PN ---
Subjective Progress Note Date: 09/18/18 CHIEF COMPLAINT: Diverticulitis with colovesical fistula HISTORY OF PRESENT ILLNESS: The patient is a 73-year-old male status post colectomy for diverticulitis and colovesical fistula, 09/16/2018. He is postop day 2. He has been transferred from the ICU to the floor. He is on liquid diet and tolerating. Pain is controlled. He has history of chronic iron deficiency anemia including alcohol abuse. ROS: No reports of nausea and vomiting. No bowel movements. No fevers or chills. No new chest pain. PHYSICAL EXAM: VITAL SIGNS: Reviewed CONSTITUTIONAL: Well developed and in no acute distress. EYES: Conjuctivae without sclera icterus. Extraocular movements grossly intact. HEAD, EARS, NOSE, THROAT: Moist buccal mucosa. Head is atraumatic, normocephalic. Hears conversational speech. No nasal drainage. NECK: Supple. No thyroidomegaly. RESPIRATORY: Non-labored respirations and equal bilateral excursions. CARDIOVASCULAR: Palpable 2+ radial pulses. Regular rate. Regular rhythm. ABDOMEN: Incisions clean dry and intact. Soft. No peritonitis. MUSCULOSKELETAL: No gross deformity of the lower extremities noted. No clubbing. No cyanosis. SKIN: Good skin turgor. Well perfused. NEUROLOGIC: Cranial nerves I through XII grossly intact. No focal or lateralizing signs. PSYCH: Appropriate affect. Alert and oriented to person, place and time. CLINCAL LABS: White blood cell count normal. Hemoglobin less than 8. ASSESSMENT: 1. 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 Status post colectomy with ostomy 3. Chronic deficiency anemia 4. Alcoholism PLAN: 1. Continue liquid diet pending resumption of bowel function 2. Recommend check of iron with appropriate iron infusions 3. Also check of B12 and thiamine for deficiencies and treatment Objective - Vital Signs Vital signs: Vital Signs Temp 98.1 F 09/18/18 08:00 Pulse 56 L 09/18/18 16:47 Resp 20 09/18/18 13:00 BP 151/91 09/18/18 13:00 Pulse Ox 96 09/18/18 13:00 Intake & Output 09/17/18 09/18/18 09/18/18 18:59 06:59 18:59 Intake Total 1743.30 2250 1025 Output Total 775 855 250 Balance 968.30 1395 775 Weight 71.9 kg Intake: IV 1475 1950 1025 DAPTOmycin 300 mg In 50 100 Sodium Chloride 0.9% 50 ml @ 100 mls/hr IVPB Q24HR [facility] Rx#:[id number] Dextrose 5%-0.9% NaCl 1, 1250 1625 500 000 ml @ 125 mls/hr IV . Q8H [facility] Rx#:[id number] Magnesium Sulfate-D5w Pmx 100 100 1 gm In Dextrose/Water 1 100ml.bag @ 100 mls/hr IVPB Q1H [facility] Rx#: [id number] Piperacillin-Tazobactam 3 175 125 100 .375 gm In Sodium Chloride 0.9% 100 ml @ 25 mls/hr IVPB Q8HR [facility] Rx# :[id number] Potassium Chloride 20 meq 100 225 In Water For Injection 1 100ml.bag @ 50 mls/hr IVPB Q2H [facility] Rx#: [id number] Intake, IV Titration 68.30 Amount Propofol 1,000 mg In 68.30 Empty Bag 1 bag @ Titrate IV .Q0M [facility] Rx#: [id number] Oral 200 300 Output: Urine 775 855 250 Other: Voiding Method Indwelling Catheter Indwelling Catheter Indwelling Catheter # Voids 1 ABP, PAP, CO, CI - Last Documented Arterial Blood Pressure 136/63 - Labs CBC & Chem 7: 09/18/18 05:00 09/18/18 12:30 Labs: Abnormal Lab Results - Last 24 Hours (Table) 09/17/18 09/17/18 09/18/18 Range/Units 17:49 20:45 05:00 RBC (4.30-5.90) m/uL Hgb (13.0-17.5) gm/dL Hct (39.0-53.0) % MCV (80.0-100.0) fL RDW (11.5-15.5) % Plt Count (150-450) k/uL Lymphocytes # (1.0-4.8) k/uL Macrocytosis Potassium 3.4 L (3.5-5.1) mmol/L Chloride 108 H (98-107) mmol/L BUN 2 L (9-20) mg/dL Creatinine 0.53 L (0.66-1.25) mg/dL POC Glucose (mg/dL) 174 H 176 H (75-99) mg/dL Calcium 7.7 L (8.4-10.2) mg/dL Total Protein 4.2 L (6.3-8.2) g/dL Albumin 1.9 L (3.5-5.0) g/dL 09/18/18 09/18/18 09/18/18 Range/Units 05:00 12:03 16:56 RBC 2.21 L (4.30-5.90) m/uL Hgb 7.7 L (13.0-17.5) gm/dL Hct 24.6 L (39.0-53.0) % MCV 111.4 H (80.0-100.0) fL RDW 15.9 H (11.5-15.5) % Plt Count 458 H (150-450) k/uL Lymphocytes # 0.7 L (1.0-4.8) k/uL Macrocytosis Marked A Potassium (3.5-5.1) mmol/L Chloride (98-107) mmol/L BUN (9-20) mg/dL Creatinine (0.66-1.25) mg/dL POC Glucose (mg/dL) 128 H 183 H (75-99) mg/dL Calcium (8.4-10.2) mg/dL Total Protein (6.3-8.2) g/dL Albumin (3.5-5.0) g/dL Assessment and Plan (1) Colovesical fistula Current Visit: Yes Status: Acute Code(s): N32.1 - VESICOINTESTINAL FISTULA SNOMED Code(s): 90230724 (2) Diverticulitis large intestine Current Visit: Yes Status: Acute Code(s): K57.32 - DVTRCLI OF LG INT W/O PERFORATION OR ABSCESS W/O BLEEDING SNOMED Code(s): 0892428 (3) ETOH abuse Current Visit: Yes Status: Acute Code(s): F10.10 - ALCOHOL ABUSE, UNCOMPLICATED SNOMED Code(s): 83610238 (4) Very poor nutrition Current Visit: Yes Status: Acute Code(s): E63.9 - NUTRITIONAL DEFICIENCY, UNSPECIFIED SNOMED Code(s): 57708517 (5) Smoker Current Visit: No Status: Acute Code(s): F17.200 - NICOTINE DEPENDENCE, UNSPECIFIED, UNCOMPLICATED SNOMED Code(s): 91502933 (6) Chronic disease anemia Current Visit: Yes Status: Acute Code(s): D63.8 - ANEMIA IN OTHER CHRONIC DISEASES CLASSIFIED ELSEWHERE SNOMED Code(s): 098983521
[2018-09-18 19:49] LABS: Glucose,Whole Blood 211 mg/dL (75-99)
[2018-09-19] MEDS: PIPERACILLIN-TAZOBACTAM 3.375 GM in SODIUM CHLORIDE 0.9% 100 ML IVPB SCH ×3 (00:41→15:30)
--- NOTE | 2018-09-19 01:55 | P.PN ---
Subjective Progress Note Date: 09/18/18 Patient is now extubated, transferred to regular floor. He is alert and awake. Patient denies any focal symptoms. He admits to heavy drinking. Patient's mental status change was attributed to alcohol withdrawal. Patient denies headaches. Patient is currently on aspirin. CTA of head and neck showed mild atherosclerotic disease involving the carotid artery bifurcations. No evidence of hemodynamically significant stenosis. Negative CTA of the brain. Chest x-ray showed no significant interval change in the appearance of the chest. Objective - Vital Signs Vital signs: Vital Signs Temp 98.1 F 09/18/18 08:00 Pulse 56 L 09/18/18 16:47 Resp 20 09/18/18 13:00 BP 151/91 09/18/18 13:00 Pulse Ox 96 09/18/18 13:00 Intake & Output 09/18/18 09/18/18 09/19/18 06:59 18:59 06:59 Intake Total 2250 1025 Output Total 855 250 Balance 1395 775 Weight 71.9 kg Intake: IV 1950 1025 DAPTOmycin 300 mg In 100 Sodium Chloride 0.9% 50 ml @ 100 mls/hr IVPB Q24HR [facility] Rx#:[id number] Dextrose 5%-0.9% NaCl 1, 1625 500 000 ml @ 125 mls/hr IV . Q8H [facility] Rx#:[id number] Magnesium Sulfate-D5w Pmx 100 100 1 gm In Dextrose/Water 1 100ml.bag @ 100 mls/hr IVPB Q1H [facility] Rx#: [id number] Piperacillin-Tazobactam 3 125 100 .375 gm In Sodium Chloride 0.9% 100 ml @ 25 mls/hr IVPB Q8HR [facility] Rx# :[id number] Potassium Chloride 20 meq 100 225 In Water For Injection 1 100ml.bag @ 50 mls/hr IVPB Q2H [facility] Rx#: [id number] Oral 300 Output: Urine 855 250 Other: Voiding Method Indwelling Catheter Indwelling Catheter # Voids 1 ABP, PAP, CO, CI - Last Documented Arterial Blood Pressure 136/63 - Exam On examination patient is an elderly male, in no distress. He is alert and awake, fully oriented. Speech and language functions are normal. Cranial nerves are normal. Visual molina are full. Face is symmetric. On muscle strength testing there is no drift and the strength appears fairly normal in the arms and legs. Hip flexion is slightly weak. No ataxia for [id number] testing. Sensations are equal. Tone and bulk of muscles normal. - Labs CBC & Chem 7: 09/18/18 05:00 09/18/18 12:30 Labs: Abnormal Lab Results - Last 24 Hours (Table) 09/17/18 09/18/18 09/18/18 Range/Units 20:45 05:00 05:00 RBC 2.21 L (4.30-5.90) m/uL Hgb 7.7 L (13.0-17.5) gm/dL Hct 24.6 L (39.0-53.0) % MCV 111.4 H (80.0-100.0) fL RDW 15.9 H (11.5-15.5) % Plt Count 458 H (150-450) k/uL Lymphocytes # 0.7 L (1.0-4.8) k/uL Macrocytosis Marked A Potassium 3.4 L (3.5-5.1) mmol/L Chloride 108 H (98-107) mmol/L BUN 2 L (9-20) mg/dL Creatinine 0.53 L (0.66-1.25) mg/dL POC Glucose (mg/dL) 176 H (75-99) mg/dL Calcium 7.7 L (8.4-10.2) mg/dL Total Protein 4.2 L (6.3-8.2) g/dL Albumin 1.9 L (3.5-5.0) g/dL 09/18/18 09/18/18 Range/Units 12:03 16:56 RBC (4.30-5.90) m/uL Hgb (13.0-17.5) gm/dL Hct (39.0-53.0) % MCV (80.0-100.0) fL RDW (11.5-15.5) % Plt Count (150-450) k/uL Lymphocytes # (1.0-4.8) k/uL Macrocytosis Potassium (3.5-5.1) mmol/L Chloride (98-107) mmol/L BUN (9-20) mg/dL Creatinine (0.66-1.25) mg/dL POC Glucose (mg/dL) 128 H 183 H (75-99) mg/dL Calcium (8.4-10.2) mg/dL Total Protein (6.3-8.2) g/dL Albumin (3.5-5.0) g/dL Assessment and Plan Assessment: * Altered mental status, likely due to toxic metabolic encephalopathy. Possible alcohol withdrawal. No evidence of TIA or CVA. * Status post diverging colostomy for complicated diverticulitis with col ovesicle fistula. * History of alcoholism * CHF with low ejection fraction 20-25%. Plan: * Patient's neurological examination is normal at this time. * Continue aspirin 325 mg orally daily. * CTA of head and neck showed no significant stenosis. * Your medical management. * As there is no active neurological issue, we will sign off.
[2018-09-19] MEDS: ASPIRIN 300 MG SUPP RECTAL SCH (02:55)
[2018-09-19] MEDS: DEXTROSE 5%-0.9% NACL 1,000 ML IV SCH ×2 (05:39→14:28)
[2018-09-19 07:01] LABS: Glucose,Whole Blood 86 mg/dL (75-99)
[2018-09-19] MEDS: INSULIN ASPART (NovoLOG) 100 UNIT/ML VIAL SQ SCH ×4 (07:51→20:45)
[2018-09-19] MEDS: METOPROLOL TARTRATE 12.5 MG TAB PO SCH ×2 (07:56→20:45)
[2018-09-19] MEDS: HEPARIN SODIUM,PORCINE 5,000 UNIT/ML 1 ML VIAL SQ SCH ×2 (07:57→20:45)
[2018-09-19] MEDS: MULTIVITAMINS, THERA 1 EACH TAB PO SCH (07:57)
[2018-09-19] MEDS: PANTOPRAZOLE 40 MG TABLET PO SCH (07:57)
[2018-09-19] MEDS: predniSONE 10 MG TAB PO SCH (07:57)
[2018-09-19] MEDS: THIAMINE 100 MG TAB PO SCH ×2 (07:58→17:35)
[2018-09-19] MEDS: ASPIRIN 325 MG TAB PO SCH (07:59)
[2018-09-19 08:16] LABS: ALT 24 U/L (21-72); AST 21 U/L (17-59); African American GFR (CKD) >90 (>60 ml/min/1.73 sqM); Albumin 2.3 g/dL (3.5-5.0); Alkaline Phosphatase 71 U/L (38-126); Anion Gap 2 mmol/L; Blood Urea Nitrogen 2 mg/dL (9-20); Calcium 8.1 mg/dL (8.4-10.2); Carbon Dioxide 27 mmol/L (22-30); Chloride 109 mmol/L (98-107); Glucose 76 mg/dL (74-99); Magnesium 2.2 mg/dL (1.6-2.3); Potassium 4.1 mmol/L (3.5-5.1); Sodium 138 mmol/L (137-145); Total Bilirubin 0.3 mg/dL (0.2-1.3); Total Protein 4.9 g/dL (6.3-8.2)
[2018-09-19 08:49] LABS: Anisocytosis Slight; Basophils % (A) 0 %; Eosinophils # (A) 0.1 k/uL (0-0.7); Eosinophils % (A) 1 %; HCT 32.4 % (39.0-53.0); Hypochromasia Marked; Lymphocytes # (A) 1.1 k/uL (1.0-4.8); Lymphocytes % (A) 13 %; MCH 34.5 pg (25.0-35.0); MCHC 30.2 g/dL (31.0-37.0); Macrocytosis Marked; Mean Platelet Volume 7.4; Monocytes # (A) 0.5 k/uL (0-1.0); Monocytes % (A) 7 %; Neutrophils # (A) 6.1 k/uL (1.3-7.7); Neutrophils % (A) 76 %; Platelet Count 463 k/uL (150-450); RBC 2.84 m/uL (4.30-5.90)
[2018-09-19 08:52] LABS: HGB 9.8 gm/dL (13.0-17.5)
--- NOTE | 2018-09-19 11:12 | P.PN ---
Subjective Progress Note Date: 09/19/18 Principal diagnosis: status post diverging colostomy postoperative day # #3 This is a 73-year-old white male patient with history of chronic alcoholism, chronic smoker, chronic anemia, previous pneumonia, malnutrition related to history of alcoholism, was in to the hospital on 09/06/2018 for evaluation of falls at home. Patient was brought in by an ambulance, and reportedly he tripped while walking and fell backwards hitting back of his head on the fridge. There was no loss of consciousness at the time of the incident, and patient's daughter called the ambulance with the patient for evaluation. The patient was drinking prior to the incident. He denies any headaches, lightheadedness, dizziness, denied any vision changes, no nausea vomiting or diarrhea. Not on any blood thinners. CT of the head and cervical spine was completed and showed moderate cerebral atrophy, no acute intracranial abnormality and mild spondylosis at C6 and 7 no acute fractures were seen. He was kept overnight in the emergency department, he was started on CIWA protocol for acute alcohol withdrawal syndrome. Lab work was completed in the emergency department and showed a white blood cell count of 6.1, hemoglobin of 9.4, sodium was 134, potassium is 2.5 and this was replaced per protocol, chloride was 94, CO2 is 31, BUN was 13 creatinine was 0.87, AST is 31, ALT was 20, alkaline phosphatase was 147, proBNP was 525. Patient was noted to have decreased oxygenation, decreased sats, after Ativan was given proceed with protocol. His decreased air movement auscultated on the left side, he was placed on 100% nonrebreather and his pulse ox is 88-89%, chest x-ray was obtained, showing stable left-sided consolidation and pleural effusion, hemodynamically related to aspiration pneumonia and asymmetric pulmonary edema. She was started on breathing treatments, antibiotics in the form of Zosyn, and is admitted to the intensive care unit for closer monitoring. She was given IV hydration in the emergency department with a liter bolus, and maintenance IV is 0.9 normal saline at a rate of 50 ML per hour. During my evaluation patient is quite lethargic, but opens eyes to verbal stimuli, and he is quite confused, he is only oriented to person, and he thinks he is in [place], he remains on 100% nonrebreather his current pulse ox is 90-92%, hemodynamically stable, blood pressure is 112/86, afebrile. on today's evaluation of 09/08/2018, the patient was seen quite awake and alert this morning. There has been improvement in the mental status since yesterday. Overnight, the patient was brought into the intensive care because of an aspiration. Significant diminished breath sounds in the left lung base along with some volume loss in the chest x-ray. He was placed on on the percent nonrebreather facemask. He was given aggressive chest PT. He was kept nothing by mouth. Overnight he improved and earlier this morning he was weaned down to 6 L about 2 by nasal cannula and he was able to maintain a saturation above 90%. His breathing was not labored. He had a congested cough. Unable to bring up much sputum. The cough strength has improved compared to yesterday. He has no signs of any agitation. In fact neurologically seemed to do much more alert and awake and following commands and responding to questions. Later on by early afternoon, the patient became more confused and restless. At that point we implemented this CIWA protocol and the patient was given Ativan which controlled his been eating. The patient is currently on antibiotics. The patient on IV Zosyn. The chest x-ray from today shows showed volume loss in the right lung base along with development of bilateral pleural effusion. Based on all this, I kept on the IV fluids to KVO. I gave the patient dose of Lasix 40 mg IV push and following that the patient producing adequate amount of urine output in the order of 750 mL. He remains in oxygen by nasal cannula at 6 L. Significant leukocytosis. Hemoglobin stable at 8.7. Function is stable. No other significant events otherwise for now. The main concern for now is his concern for pneumonia, respiratory failure and early a.m. His cough and mechanism has improved although it remains quite weak and somewhat ineffective and performing adequate pulmonary toileting. On 09/09/2018, the patient remains quite lethargic yet arousable. Chest x-ray still showing bilateral basal infiltrate and small better pleural effusion. His cough and presented to bring up much of sputum and his cough is weak. He is receiving PT. He is on 40% oxygen nasal cannula and his pulse is now 94%. I think that there is some aspiration related mucous plugs which the patient is unable to cough out. Nevertheless, despite his x-ray findings, he still breathing comfortably on 4 L of oxygen nasal cannula. No chest pain. No hemoptysis. No pleurisy. No agitation. He is breathing is nonlabored. He is receiving IV Zosyn. He is on IV Solu Medrol 40 mg every 8 hours. He is on DuoNeb nebulized treatments around the clock. His ammonia level is less than 9. On 09/10/2018, the patient is doing progress. He seems to be more awake. Is able to cough more effectively. His FiO2 has improved and is down to 40s about 2 by nasal cannula. His breathing is nonlabored. Chest x-ray showing bilateral consolidation lower lobe effusions. No chest pain. No aspiration. Is tolerating his diet is on DuoNeb nebulized treatment [id number] is on IV Solu-Medrol. He is on IV Zosyn. He is able to sit up on a chair. He remains quite weak and lethargic yet interactive and more talkative and communicating compared to yesterday. No focal neurological deficits for now. His urine remains quite cloudy and there is significant amount of sediment. The previously sent culture was contaminant and for that reason we sent another UA and urine culture. UA came back positive for white cells along with few clumps and there was occasional bacteria. There was also some crystals. Cultures are still pending for now. The patient is still on IV Zosyn. No seizure activity. No visual or auditory hallucinations on today's evaluation. On 09/11/2018, the patient is being seen in the medical floor. He is doing well. No significant complaints for now. He seems to much more alert and awake. No hallucinations. No delusions. No tremors. No altered mentation. Echocardiogram is to be done today. No significant respiratory distress. Currently he is on 4 L of oxygen nasal cannula. He was diuresed with IV Lasix and the dose of Lasix was given to him overnight. He is on a IV Solu Medrol which will be tapered down to prednisone burst taper. He is tolerating his diet. No nausea. No vomiting. Urine culture is still pending for now. Meanwhile, the patient does not show any signs of septicemia. He remains on IV Zosyn. On 09/12/2018, the patient got transferred back to the intensive care unit. Overnight the patient became more short of breath, lethargic, hypoxic, and he was found to have significant abdominal distention. I recommended an NG tube placement. Following that, the patient was sent for a CAT scan of the chest and abdomen and it showed emphysema, bilateral multifocal pneumonia, bilateral pleural effusion right more than left, and no acute intra-abdominal findings. NG tube was removed 9 GERD output was minimal. The patient this morning is feeling much better. His lactic acid levels are improving. He has no chest pain. No minutes cough without any significant sputum production. He was given a dose of Lasix following which produced excellent urine output. He has a Benedict catheter in place. The urine quality has improved symptomatically at this point in time nontender this was very cloudy and purulent. Cultures of been negative. The patient remains on IV Zosyn. Right-sided thoracentesis is being considered for now. On 09/13/2018, the patient is doing well. No respiratory distress. I performed a thoracentesis on him yesterday and total of 1 L of pleural fluid was aspirated from the right lung. Chest x-ray from today shows a small amount of effusion the left. He is swallowing well. No aspiration or sputum production. No respiratory distress. He is on 40s about 2 by nasal cannula. Meanwhile, the Benedict cath is in place. The urine output for now is quite clean. 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 This explains the constant abnormalities in the urine analysis is worsening in this patient. He remains on IV Zosyn. Gen. surgery has been consulted regarding a fistulous connection between the bladder and the sigmoid colon. No abdominal pain. No signs of any septicemia for the time being. Benedict catheter will be kept in place. On 09/06/2018 patient seen in follow-up on medical surgical floor. is resting comfortably in bed, in no acute distress, he is awake, alert to person, place, disoriented to time, but he knew who the president was. afebrile, hemodynamically stable, denies any difficulty breathing, lung sounds are reveal diffuse wheezes,patient is on oral prednisone, Zosyn for antibiotic coverage. No signs of DTs.his labs have been reviewed and showed white blood cell count is 5.7, hemoglobin is 7.6, serum phosphorus was 3.7, magnesium was 2.3. BMP was not done. On 09/15/2018 patient is seen in follow-up on medical surgical floor. Patient is resting in bed, he denies any acute distress, lung sounds are positive for a few scattered rales and wheezes, Nonproductive Cough. No signs of DTs. No complaints of worsening dyspnea, chest pain, cough or congestion. Remains on oral prednisone, Zosyn and Daptomycin for antibiotic coverage, patient is scheduled for colonoscopy sometime tomorrow. Benedict catheter remains in place and is draining clear yellow urine. His labs have been reviewed serum sodium is 1.36, potassium is 4.3, chloride is 100, CO2 is 35, BUN is 9 creatinine 0.69. 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 Patient was extubated initially in the or, however did not tolerate the extubation, ended up reintubated, sent back to the ICU on mechanical ventilation. Presently the patient is in the ICU on mechanical ventilation. And his ventilator settings are tidal volume of 500, assist control rate of 12, FiO2 was cut down from 100% to 40%, and PEEP at 5.ABG on on the percent showed a pO2 of 367 pCO2 of 46, and pH of 7.42. Patient was noted to have low blood pressure, hence I recommended a fluid bolus of 500 mL of 0.9 normal saline, recommended cutting down on his propofol, and if needed to start the patient on norepinephrine. Chest x-ray postoperatively showedhigh placement of the endotracheal tube, hence recommended advancement of the endotracheal tube by to see him. There was evidence of small left-sided pleural effusion and atelectasis, and findings consistent with COPD.all labs from earlier today were reviewed, he had a relatively normal electrolytes and the relatively normal CBC.hemoglobin was noted to be 8.9 earlier.shortly after he arrived to the ICU, patient was noted to have some left-sided weakness, and possibility of CVA was entertained. Hence CT of the brainwas done, it showed no acute intracranial hemorrhage no midline shift or mass effect there was evidence of diffuse mucoperiosteal thickening consistent with chronic sinusitis. And there was age related atrophy and nonspecific. N eurology was consulted regarding his new change in neurological status. CT angiogram of the brain was also ordered and relatively unremarkable. Patient was reevaluated today on 09/17/2018, his postoperative day #1, patient remains on mechanical ventilation. About an hour ago, patient was taken off propofol. He was switched about half an hour ago to pressure support of 8 and CPAP. ABG on that setting showed a pO2 of 85 pCO2 of 43 pH of 7.47. Patient was assessed, and his weaning parameters seem to be reasonable. Chest x-ray shows some small left pleural effusion and atelectasis at the bases. Patient is awake, alert, follows all instructions, and the left-sided weakness which she had yesterday apparently resolved. Hence I recommended extubating the patient. Patient was reevaluated today on 09/18/2018, he is postoperative day #2. Patient was extubated yesterday, tolerated the extubation quite well, he is presently on few liters nasal cannula. Asymptomatic, no cough no wheezing no shortness of breath, patient is quite comfortable in bed. He is hemodynamically stable. Chest x-ray shows small bilateral pleural effusions. And it showed minimal bibasilar atelectasis. WBC count is 5.5 hemoglobin is 7.7 basic metabolic profile is normal potassium is 3.4 being corrected as per protocol. Reevaluated today on 09/19/2018, patient is postoperative day #3. He is on surgical medical floor, doing quite well, on few liters nasal cannula, in no distress, denies any cough no wheezing no shortness of breath no nausea no vomiting and no abdominal pain. Labs were reviewed WBC count is 8 hemoglobin is 9.8, basic metabolic profile is normal. Renal profile is normal Objective - Vital Signs Vital signs: Vital Signs Temp 97.8 F 09/19/18 04:25 Pulse 60 09/19/18 04:25 Resp 16 09/19/18 04:25 BP 155/77 09/19/18 04:25 Pulse Ox 100 09/19/18 04:25 Intake & Output 09/18/18 09/19/18 09/19/18 18:59 06:59 18:59 Intake Total 1025 Output Total 250 2125 Balance 775 -2125 Weight 72 kg Intake: IV 1025 DAPTOmycin 300 mg In 100 Sodium Chloride 0.9% 50 ml @ 100 mls/hr IVPB Q24HR [facility] Rx#:[id number] Dextrose 5%-0.9% NaCl 1, 500 000 ml @ 125 mls/hr IV . Q8H [facility] Rx#:[id number] Magnesium Sulfate-D5w Pmx 100 1 gm In Dextrose/Water 1 100ml.bag @ 100 mls/hr IVPB Q1H [facility] Rx#: [id number] Piperacillin-Tazobactam 3 100 .375 gm In Sodium Chloride 0.9% 100 ml @ 25 mls/hr IVPB Q8HR [facility] Rx# :[id number] Potassium Chloride 20 meq 225 In Water For Injection 1 100ml.bag @ 50 mls/hr IVPB Q2H [facility] Rx#: [id number] Output: Urine 250 2125 Coude 2000 Other: Voiding Method Indwelling Catheter Indwelling Catheter Indwelling Catheter # Voids 1 1 # Bowel Movements 1 ABP, PAP, CO, CI - Last Documented Arterial Blood Pressure 136/63 - Exam GENERAL EXAM: revealed 73-year-old white male in no distress. HEENT: PERRLA, EOMI, , no neck masses, no JVD. CHEST: No chest wall deformity. Symmetrical expansion. LUNGS: Slightly diminished breath sounds at the left base, no crackles or rhonchi no wheezes. CVS: Regular rate and rhythm, normal S1 and S2, no gallops, no murmurs, no rubs ABDOMEN: postsurgical, surgical dressings seems to be clean and dry, colostomy is intact.Soft, nontender. No hepatosplenomegaly, normal bowel sounds, no guarding or rigidity. EXTREMITIES: No clubbing, no edema, no cyanosis, 2+ pulses and upper and lower extremities SKIN: No rashes CENTRAL NERVOUS SYSTEM: Awake alert, no gross focal neurologic deficits. PSYCHIATRIC: Alert oriented 3, no gross focal neurologic deficit. - Labs CBC & Chem 7: 09/19/18 07:33 09/19/18 07:33 Labs: Abnormal Lab Results - Last 24 Hours (Table) 09/18/18 09/18/18 09/18/18 Range/Units 12:03 16:56 19:47 RBC (4.30-5.90) m/uL Hgb (13.0-17.5) gm/dL Hct (39.0-53.0) % MCV (80.0-100.0) fL MCHC (31.0-37.0) g/dL RDW (11.5-15.5) % Plt Count (150-450) k/uL Macrocytosis Chloride (98-107) mmol/L BUN (9-20) mg/dL Creatinine (0.66-1.25) mg/dL POC Glucose (mg/dL) 128 H 183 H 211 H (75-99) mg/dL Calcium (8.4-10.2) mg/dL Total Protein (6.3-8.2) g/dL Albumin (3.5-5.0) g/dL 09/19/18 09/19/18 Range/Units 07:33 07:33 RBC 2.84 L (4.30-5.90) m/uL Hgb 9.8 L D (13.0-17.5) gm/dL Hct 32.4 L (39.0-53.0) % MCV 114.0 H (80.0-100.0) fL MCHC 30.2 L (31.0-37.0) g/dL RDW 16.0 H (11.5-15.5) % Plt Count 463 H (150-450) k/uL Macrocytosis Marked A Chloride 109 H (98-107) mmol/L BUN 2 L (9-20) mg/dL Creatinine 0.53 L (0.66-1.25) mg/dL POC Glucose (mg/dL) (75-99) mg/dL Calcium 8.1 L (8.4-10.2) mg/dL Total Protein 4.9 L (6.3-8.2) g/dL Albumin 2.3 L (3.5-5.0) g/dL Assessment and Plan Assessment: impression: 1 status post diverting colostomy, presently on mechanical ventilation, postoperative day #3 2: The colovesical fistula, status post diverting colostomy. 3 urinary tract infection secondary to enterococcus, remains on daptomycin. And Zosyn. #4. Acute delirium, related to acute alcohol withdrawal syndrome, resolved. #5. Alcohol intoxication, resolved. #6. Electrolyte abnormalities including mild hyponatremia, severe hypokalemia, hypochloremia, and increased CO2, hemodynamically related to patient's chronic alcoholism, poor nutrition, and dehydration, resolved. #7. Chronic anemia #8. Chronic cigarette smoker, counseled regarding smoking cessation. #9. Chronic alcoholism with underlying malnutrition #10. Previous episode of pneumonia involving the left lower lobe in 2016 #11. Generalized weakness and debility and malnourishment , improving. #12 left-sided weakness, resolved, most likely secondary to TIA. Recommendation: Continue present supportive care measures, continue incentive spirometry, bronchodilators, antibiotics, consider discharge planning and placement in the next 2-3 days. Patient will need to ambulate, and continue physical therapy and occupational therapy. Long-term prognosis remains relatively poor and guarded considering his multiple comorbidities as noted above. Time with Patient: Less than 30
[2018-09-19 11:19] LABS: Glucose,Whole Blood 97 mg/dL (75-99)
--- NOTE | 2018-09-19 13:36 | P.PN ---
Subjective Progress Note Date: 09/19/18 CHIEF COMPLAINT: Diverticulitis with colovesical fistula HISTORY OF PRESENT ILLNESS: The patient is a 73-year-old male status post colectomy for diverticulitis and colovesical fistula, 09/16/2018. He is postop day 3. He is sitting up in chair. He is eager to have more food. He is having bowel movements. He is yet to ambulate. ROS: No reports of nausea and vomiting. No fevers or chills. No new chest pain. PHYSICAL EXAM: VITAL SIGNS: Reviewed CONSTITUTIONAL: Well developed and in no acute distress. EYES: Conjuctivae without sclera icterus. Extraocular movements grossly intact. HEAD, EARS, NOSE, THROAT: Moist buccal mucosa. Head is atraumatic, normocephalic. Hears conversational speech. No nasal drainage. NECK: Supple. No thyroidomegaly. RESPIRATORY: Non-labored respirations and equal bilateral excursions. CARDIOVASCULAR: Palpable 2+ radial pulses. Regular rate. Regular rhythm. ABDOMEN: Incisions clean dry and intact. Soft. No peritonitis. MUSCULOSKELETAL: No gross deformity of the lower extremities noted. No clubbing. No cyanosis. SKIN: Good skin turgor. Well perfused. NEUROLOGIC: Cranial nerves I through XII grossly intact. No focal or lateralizing signs. PSYCH: Appropriate affect. Alert and oriented to person, place and time. CLINCAL LABS: White blood cell count normal. Hemoglobin improved over 9.8 from 8 without blood transfusions ASSESSMENT: 1. 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 Status post colectomy with ostomy 3. Chronic deficiency anemia 4. Alcoholism PLAN: 1. Advance diet. 2. Consultation of physical therapy and occupational therapy for evaluation of rehab Objective - Vital Signs Vital signs: Vital Signs Temp 98.2 F 09/19/18 11:30 Pulse 74 09/19/18 11:30 Resp 16 09/19/18 11:30 BP 133/85 09/19/18 11:30 Pulse Ox 97 09/19/18 11:30 Intake & Output 09/18/18 09/19/18 09/19/18 18:59 06:59 18:59 Intake Total 1025 Output Total 250 2125 600 Balance 331 -2080 -810 Weight 72 kg Intake: IV 1025 DAPTOmycin 300 mg In 100 Sodium Chloride 0.9% 50 ml @ 100 mls/hr IVPB Q24HR [facility] Rx#:[id number] Dextrose 5%-0.9% NaCl 1, 500 000 ml @ 125 mls/hr IV . Q8H [facility] Rx#:[id number] Magnesium Sulfate-D5w Pmx 100 1 gm In Dextrose/Water 1 100ml.bag @ 100 mls/hr IVPB Q1H [facility] Rx#: [id number] Piperacillin-Tazobactam 3 100 .375 gm In Sodium Chloride 0.9% 100 ml @ 25 mls/hr IVPB Q8HR [facility] Rx# :[id number] Potassium Chloride 20 meq 225 In Water For Injection 1 100ml.bag @ 50 mls/hr IVPB Q2H [facility] Rx#: [id number] Output: Urine 250 2125 600 Coude 2000 Other: Voiding Method Indwelling Catheter Indwelling Catheter Indwelling Catheter # Voids 1 1 1 # Bowel Movements 1 ABP, PAP, CO, CI - Last Documented Arterial Blood Pressure 136/63 - Labs CBC & Chem 7: 09/19/18 07:33 09/19/18 07:33 Labs: Abnormal Lab Results - Last 24 Hours (Table) 09/18/18 09/18/18 09/19/18 Range/Units 16:56 19:47 07:33 RBC 2.84 L (4.30-5.90) m/uL Hgb 9.8 L D (13.0-17.5) gm/dL Hct 32.4 L (39.0-53.0) % MCV 114.0 H (80.0-100.0) fL MCHC 30.2 L (31.0-37.0) g/dL RDW 16.0 H (11.5-15.5) % Plt Count 463 H (150-450) k/uL Macrocytosis Marked A Chloride (98-107) mmol/L BUN (9-20) mg/dL Creatinine (0.66-1.25) mg/dL POC Glucose (mg/dL) 183 H 211 H (75-99) mg/dL Calcium (8.4-10.2) mg/dL Total Protein (6.3-8.2) g/dL Albumin (3.5-5.0) g/dL 09/19/18 Range/Units 07:33 RBC (4.30-5.90) m/uL Hgb (13.0-17.5) gm/dL Hct (39.0-53.0) % MCV (80.0-100.0) fL MCHC (31.0-37.0) g/dL RDW (11.5-15.5) % Plt Count (150-450) k/uL Macrocytosis Chloride 109 H (98-107) mmol/L BUN 2 L (9-20) mg/dL Creatinine 0.53 L (0.66-1.25) mg/dL POC Glucose (mg/dL) (75-99) mg/dL Calcium 8.1 L (8.4-10.2) mg/dL Total Protein 4.9 L (6.3-8.2) g/dL Albumin 2.3 L (3.5-5.0) g/dL Assessment and Plan (1) Colovesical fistula Current Visit: Yes Status: Acute Code(s): N32.1 - VESICOINTESTINAL FISTULA SNOMED Code(s): 04495156 (2) Diverticulitis large intestine Current Visit: Yes Status: Acute Code(s): K57.32 - DVTRCLI OF LG INT W/O PERFORATION OR ABSCESS W/O BLEEDING SNOMED Code(s): 7863532 (3) ETOH abuse Current Visit: Yes Status: Acute Code(s): F10.10 - ALCOHOL ABUSE, UNCOMPLICATED SNOMED Code(s): 95799939 (4) Very poor nutrition Current Visit: Yes Status: Acute Code(s): E63.9 - NUTRITIONAL DEFICIENCY, UNSPECIFIED SNOMED Code(s): 28498946 (5) Smoker Current Visit: No Status: Acute Code(s): F17.200 - NICOTINE DEPENDENCE, UNSPECIFIED, UNCOMPLICATED SNOMED Code(s): 13589760 (6) Chronic disease anemia Current Visit: Yes Status: Acute Code(s): D63.8 - ANEMIA IN OTHER CHRONIC DISEASES CLASSIFIED ELSEWHERE SNOMED Code(s): 835639206
--- NOTE | 2018-09-19 14:29 | P.PN ---
Subjective Progress Note Date: 09/19/18 This is a 73-year-old white male patient with history of chronic alcoholism, chronic smoker, chronic anemia, previous pneumonia, malnutrition related to history of alcoholism, was in to the hospital on 09/06/2018 for evaluation of falls at home. Patient was brought in by an ambulance, and reportedly he t ripped while walking and fell backwards hitting back of his head on the fridge. There was no loss of consciousness at the time of the incident, and patient's daughter called the ambulance with the patient for evaluation. The patient was drinking prior to the incident. 09/18/2018, Patient is seen and evaluated in ICU at bedside; he is postoperative day #2. Patient was extubated yesterday, tolerated the extubation quite well, he is presently on few liters nasal cannula. Asymptomatic, no cough no wheezing no shortness of breath, patient is quite comfortable in bed. He is hemodynamically stable. Chest x-ray shows small bilateral pleural effusions. And it showed minimal bibasilar atelectasis. WBC count is 5.5 hemoglobin is 7.7 basic metabolic profile is normal potassium is 3.4 being corrected as per protocol Patient is cleared for transfer to medical floor by [employer] apprentice service 09/19/2018, patient is postoperative day #3. He is on surgical medical floor, doing quite well, on few liters nasal cannula, in no distress, denies any cough no wheezing no shortness of breath no nausea no vomiting and no abdominal pain. Labs were r eviewed WBC count is 8 hemoglobin is 9.8, basic metabolic profile is normal. Renal profile is normal Objective - Vital Signs Vital signs: Vital Signs Temp 98.2 F 09/19/18 11:30 Pulse 74 09/19/18 11:30 Resp 16 09/19/18 11:30 BP 133/85 09/19/18 11:30 Pulse Ox 97 09/19/18 11:30 Intake & Output 09/18/18 09/19/18 09/19/18 18:59 06:59 18:59 Intake Total 1025 Output Total 250 2125 600 Balance 775 -5 -600 Weight 72 kg Intake: IV 1025 DAPTOmycin 300 mg In 100 Sodium Chloride 0.9% 50 ml @ 100 mls/hr IVPB Q24HR [facility] Rx#:[id number] Dextrose 5%-0.9% NaCl 1, 500 000 ml @ 125 mls/hr IV . Q8H [facility] Rx#:[id number] Magnesium Sulfate-D5w Pmx 100 1 gm In Dextrose/Water 1 100ml.bag @ 100 mls/hr IVPB Q1H [facility] Rx#: [id number] Piperacillin-Tazobactam 3 100 .375 gm In Sodium Chloride 0.9% 100 ml @ 25 mls/hr IVPB Q8HR [facility] Rx# :[id number] Potassium Chloride 20 meq 225 In Water For Injection 1 100ml.bag @ 50 mls/hr IVPB Q2H [facility] Rx#: [id number] Output: Urine 250 2125 600 Coude 2000 Other: Voiding Method Indwelling Catheter Indwelling Catheter Indwelling Catheter # Voids 1 1 1 # Bowel Movements 1 ABP, PAP, CO, CI - Last Documented Arterial Blood Pressure 136/63 - Exam - Constitutional General appearance: Present: average body habitus, cooperative, no acute distres s - EENT Eyes: Present: anicteric sclerae, EOMI, PERRLA, normal appearance - Neck Neck: Present: normal ROM. Absent: lymphadenopathy, rigidity, thyromegaly Carotids: negative: bruit present Thyroid: bilateral: normal size, negative: enlarged, nodule - Respiratory Respiratory: bilateral: CTA, negative: rales, rhonchi, wheezing - Cardiovascular Rhythm: regular Heart sounds: normal: S1, S2 Abnormal Heart Sounds: Absent: systolic murmur, diastolic murmur - Gastrointestinal General gastrointestinal: Present: normal bowel sounds, soft. Absent: distended, organomegaly, tenderness - Integumentary Integumentary: Present: normal turgor. Absent: jaundiced, rash, ulcer - Labs CBC & Chem 7: 09/19/18 07:33 09/19/18 07:33 Labs: Abnormal Lab Results - Last 24 Hours (Table) 09/18/18 09/18/18 09/19/18 Range/Units 16:56 19:47 07:33 RBC 2.84 L (4.30-5.90) m/uL Hgb 9.8 L D (13.0-17.5) gm/dL Hct 32.4 L (39.0-53.0) % MCV 114.0 H (80.0-100.0) fL MCHC 30.2 L (31.0-37.0) g/dL RDW 16.0 H (11.5-15.5) % Plt Count 463 H (150-450) k/uL Macrocytosis Marked A Chloride (98-107) mmol/L BUN (9-20) mg/dL Creatinine (0.66-1.25) mg/dL POC Glucose (mg/dL) 183 H 211 H (75-99) mg/dL Calcium (8.4-10.2) mg/dL Total Protein (6.3-8.2) g/dL Albumin (3.5-5.0) g/dL 09/19/18 Range/Units 07:33 RBC (4.30-5.90) m/uL Hgb (13.0-17.5) gm/dL Hct (39.0-53.0) % MCV (80.0-100.0) fL MCHC (31.0-37.0) g/dL RDW (11.5-15.5) % Plt Count (150-450) k/uL Macrocytosis Chloride 109 H (98-107) mmol/L BUN 2 L (9-20) mg/dL Creatinine 0.53 L (0.66-1.25) mg/dL POC Glucose (mg/dL) (75-99) mg/dL Calcium 8.1 L (8.4-10.2) mg/dL Total Protein 4.9 L (6.3-8.2) g/dL Albumin 2.3 L (3.5-5.0) g/dL Assessment and Plan Assessment: 1 status post diverting colostomy; postoperative day #2 2: The colovesical fistula, being addressed by surgery on the case, and is status post diverting colostomy. 3 urinary tract infection secondary to enterococcus, remains on daptomycin. And he is also on Zosyn. #4. Acute delirium, related to acute alcohol withdrawal syndrome, resolved. #5. Alcohol intoxication, resolved. #6. Electrolyte abnormalities including mild hyponatremia, severe hypokalemia, hypochloremia, and increased CO2, hemodynamically related to patient's chronic alcoholism, poor nutrition, and dehydration, significantly improved. And being addressed as per protocol. #7. Chronic anemia #8. Chronic cigarette smoker, counseled regarding smoking cessation. #9. Chronic alcoholism with underlying malnutrition #10. Previous episode of pneumonia involving the left lower lobe in 2016 #11. Generalized weakness and debility and malnourishment , improving. #12 left-sided weakness, resolved, most likely secondary to TIA.
[2018-09-19 17:11] LABS: Glucose,Whole Blood 132 mg/dL (75-99)
[2018-09-19] MEDS: HYDROmorphone 1 MG/ML 1 ML SYRINGE IM PRN ×2 (18:25→22:08)
[2018-09-19 20:12] LABS: Glucose,Whole Blood 168 mg/dL (75-99)
[2018-09-20] MEDS: PIPERACILLIN-TAZOBACTAM 3.375 GM in SODIUM CHLORIDE 0.9% 100 ML IVPB SCH ×4 (01:09→23:48)
[2018-09-20] MEDS: DEXTROSE 5%-0.9% NACL 1,000 ML IV SCH ×3 (04:57→14:00)
[2018-09-20 06:43] LABS: Glucose,Whole Blood 147 mg/dL (75-99)
[2018-09-20] MEDS: HEPARIN SODIUM,PORCINE 5,000 UNIT/ML 1 ML VIAL SQ SCH ×2 (07:56→20:32)
[2018-09-20] MEDS: PANTOPRAZOLE 40 MG TABLET PO SCH (07:57)
[2018-09-20] MEDS: predniSONE 10 MG TAB PO SCH (07:57)
[2018-09-20] MEDS: ASPIRIN 325 MG TAB PO SCH (07:57)
[2018-09-20] MEDS: MULTIVITAMINS, THERA 1 EACH TAB PO SCH (07:57)
[2018-09-20] MEDS: METOPROLOL TARTRATE 12.5 MG TAB PO SCH ×2 (07:57→20:31)
[2018-09-20] MEDS: THIAMINE 100 MG TAB PO SCH ×2 (08:01→17:18)
[2018-09-20] MEDS: INSULIN ASPART (NovoLOG) 100 UNIT/ML VIAL SQ SCH ×4 (08:01→20:32)
[2018-09-20] MEDS: HYDROmorphone 1 MG/ML 1 ML SYRINGE IM PRN (08:31)
[2018-09-20 09:11] LABS: ALT 15 U/L (21-72); AST 22 U/L (17-59); African American GFR (CKD) >90 (>60 ml/min/1.73 sqM); Albumin 2.3 g/dL (3.5-5.0); Alkaline Phosphatase 68 U/L (38-126); Anion Gap 2 mmol/L; Blood Urea Nitrogen 4 mg/dL (9-20); Carbon Dioxide 26 mmol/L (22-30); Chloride 108 mmol/L (98-107); Glucose 109 mg/dL (74-99); Potassium 4.7 mmol/L (3.5-5.1); Sodium 136 mmol/L (137-145); Total Bilirubin 0.3 mg/dL (0.2-1.3); Total Protein 4.8 g/dL (6.3-8.2)
[2018-09-20 09:16] LABS: HCT 34.7 % (39.0-53.0); HGB 10.1 gm/dL (13.0-17.5); Hypochromasia Marked; MCH 32.6 pg (25.0-35.0); MCHC 29.2 g/dL (31.0-37.0); MCV 111.7 fL (80.0-100.0); Macrocytosis Marked; Mean Platelet Volume 7.4; Platelet Count 551 k/uL (150-450); RDW 15.7 % (11.5-15.5); WBC 10.8 k/uL (3.8-10.6)
[2018-09-20 11:15] LABS: Glucose,Whole Blood 72 mg/dL (75-99)
[2018-09-20 12:09] LABS: Band Neutrophils % 1 %; Lymphocytes # (M) 0.32 k/uL (1.0-4.8); Monocytes # (M) 0.43 k/uL (0-1.0); Neutrophils % (M) 92 %; Nucleated Red Blood Cells 0 /100 WBC (0-0); Total Cells Counted 100
[2018-09-20 12:10] LABS: Anisocytosis (M) Present; Poikilocytosis (M) Present
--- NOTE | 2018-09-20 12:38 | P.PN ---
Subjective Progress Note Date: 09/20/18 CHIEF COMPLAINT: Diverticulitis with colovesicular fistula HISTORY OF PRESENT ILLNESS: Patient examined this afternoon. Patient sitting in the chair. Patient s/p diverting colostomy with Dr. Francis. patient tolerating regular diet. Ostomy with liquid stool output. Denies nausea or vomiting. Patient states he was having alot of pain this morning but his pain is controlled at this time. PHYSICAL EXAM: VITAL SIGNS: Reviewed. GENERAL: Well-developed in no acute distress. HEENT: No sclera icterus. Extraocular movements grossly intact. Moist buccal mucosa. Head is atraumatic, normocephalic. ABDOMEN: Minimally distended. Nontender. Dressing to midline with shadowing present. Ostomy with brown liquid stool. NEUROLOGIC: Awake and alert. Oriented x 3. ASSESSMENT: 1. Diverticulitis with colovesicular fistula PLAN: Continue regular diet Wean oxygen as tolerated [place] added this AM for pain. Pain is now controlled per patient. Discontinue urinary catheter Antibiotics per infectious disease Nurse practitioner note has been reviewed by physician. Signing provider agrees with the documented findings, assessment, and plan of care. Objective - Vital Signs Vital signs: Vital Signs Temp 97.8 F 09/20/18 11:50 Pulse 69 09/20/18 11:50 Resp 16 09/20/18 11:50 BP 142/86 09/20/18 11:50 Pulse Ox 98 09/20/18 11:50 Intake & Output 09/19/18 09/20/18 09/20/18 18:59 06:59 18:59 Output Total 1200 300 Balance -1200 -300 Weight 71.8 kg Output: Urine 1200 300 Other: Voiding Method Indwelling Catheter Indwelling Catheter # Voids 1 # Bowel Movements 1 ABP, PAP, CO, CI - Last Documented Arterial Blood Pressure 136/63 - Labs CBC & Chem 7: 09/20/18 08:08 09/20/18 08:08 Labs: Abnormal Lab Results - Last 24 Hours (Table) 09/19/18 09/19/18 09/20/18 Range/Units 17:10 20:11 06:42 WBC (3.8-10.6) k/uL RBC (4.30-5.90) m/uL Hgb (13.0-17.5) gm/dL Hct (39.0-53.0) % MCV (80.0-100.0) fL MCHC (31.0-37.0) g/dL RDW (11.5-15.5) % Plt Count (150-450) k/uL Neutrophils # (Manual) (1.3-7.7) k/uL Lymphocytes # (Manual) (1.0-4.8) k/uL Macrocytosis Sodium (137-145) mmol/L Chloride (98-107) mmol/L BUN (9-20) mg/dL Creatinine (0.66-1.25) mg/dL Glucose (74-99) mg/dL POC Glucose (mg/dL) 132 H 168 H 147 H (75-99) mg/dL Calcium (8.4-10.2) mg/dL ALT (21-72) U/L Total Protein (6.3-8.2) g/dL Albumin (3.5-5.0) g/dL 09/20/18 09/20/18 09/20/18 Range/Units 08:08 08:08 10:58 WBC 10.8 H (3.8-10.6) k/uL RBC 3.10 L (4.30-5.90) m/uL Hgb 10.1 L (13.0-17.5) gm/dL Hct 34.7 L (39.0-53.0) % MCV 111.7 H (80.0-100.0) fL MCHC 29.2 L (31.0-37.0) g/dL RDW 15.7 H (11.5-15.5) % Plt Count 551 H (150-450) k/uL Neutrophils # (Manual) 10.00 H (1.3-7.7) k/uL Lymphocytes # (Manual) 0.32 L (1.0-4.8) k/uL Macrocytosis Marked A Sodium 136 L (137-145) mmol/L Chloride 108 H (98-107) mmol/L BUN 4 L (9-20) mg/dL Creatinine 0.64 L (0.66-1.25) mg/dL Glucose 109 H (74-99) mg/dL POC Glucose (mg/dL) 72 L (75-99) mg/dL Calcium 8.0 L (8.4-10.2) mg/dL ALT 15 L (21-72) U/L Total Protein 4.8 L (6.3-8.2) g/dL Albumin 2.3 L (3.5-5.0) g/dL
--- NOTE | 2018-09-20 12:46 | P.PN ---
Progress Note - Text Progress Note Date: 09/19/18 PROGRESS NOTE DATE OF SERVICE: 09/19/2018. REASON FOR FOLLOWUP VISIT: 1. Acute complicated Diverticulitis. 2. Enterococcus faecium urinary tract infection. INTERVAL HISTORY: The patient remains to be afebrile. The patient is breathing comfortably On nasal cannula oxygen. No chest pain or any cough. No abdominal pain. No nausea, no vomiting. PHYSICAL EXAMINATION: Blood pressure 130/60 with a pulse of 75, temperature of 98.3. He is 98% on 2 L nasal cannula. General description is an elderly male lying in bed in no distress. Respiratory system: Unlabored breathing. Clear to auscultation anteriorly. Heart S1, S2. Regular rate and rhythm. Abdomen soft, no tenderness. LABS: Reviewed DIAGNOSTIC IMPRESSION AND PLAN: Patient with acute complicated sigmoid diverticulitis with colovesical fistula, status post laparotomy with diverting colostomy. Urine has been positive with enterococcus faecium that is ampicillin resistant. Patient will be continued with daptomycin and Zosyn while monitoring the clinical course closely. Continue supportive care.
[2018-09-20 13:16] VITALS: BMI 22.1
[2018-09-20] MEDS ORDERED: FUROSEMIDE 10 MG/ML 4 ML VIAL IV STA (13:30)
--- NOTE | 2018-09-20 13:35 | P.PN ---
Subjective Patient was admitted for delirium and the was treated for alcohol withdrawal with those resolved. Patient is found to have colovesical fistula for which patient had diverting colostomy patient is also being treated with the daptomycin for enterococcus which is resistant to Zosyn. And had respiratory failure during this hospitalization was intubated. Patient has edema of both the legs because of IV fluids he was receiving IV fluids will be discussed in patient will be given a dose of Lasix. Patient does have bowel movements into the colostomy bag abdomen is rigid but not tender. Patient is overall clinically doing well will not check with infectious disease regarding antibiotics and necessity of IV antibiotics for possibility of discharge most probably to subacute rehabilitation tomorrow. Constitutional: Denied any fatigue denied any fever. Cardio vascular: denied any chest pain, palpitations Gastrointestinal denied any nausea vomiting Pulmonary: Denied any shortness of breath cough Neurologic denied any new focal deficits All inpatient medications were reviewed and appropriate changes in these medications as dictated in the interval history and assessment and plan. Objective - Vital Signs Vital signs: Vital Signs Temp 97.8 F 09/20/18 11:50 Pulse 69 09/20/18 11:50 Resp 16 09/20/18 11:50 BP 142/86 09/20/18 11:50 Pulse Ox 98 09/20/18 11:50 Intake & Output 09/19/18 09/20/18 09/20/18 18:59 06:59 18:59 Output Total 1200 300 Balance -1200 -300 Weight 71.8 kg 71.8 kg Output: Urine 1200 300 Other: Voiding Method Indwelling Catheter Indwelling Catheter # Voids 1 # Bowel Movements 1 ABP, PAP, CO, CI - Last Documented Arterial Blood Pressure 136/63 - Exam PHYSICAL EXAMINATION: GENERAL: The patient is alert and oriented x3, not in any acute distress. Well developed, well nourished. HEENT: Pupils are round and equally reacting to light. EOMI. No scleral icterus. No conjunctival pallor. Normocephalic, atraumatic. No pharyngeal erythema. No thyromegaly. CARDIOVASCULAR: S1 and S2 present. No murmurs, rubs, or gallops. PULMONARY: Chest is clear to auscultation, no wheezing or crackles. ABDOMEN: Distended does have bowel movements into colostomy bag surgical site areas appear to be clean MUSCULOSKELETAL: No joint swelling or deformity. EXTREMITIES: No cyanosis, clubbing, does have significant pedal edema both legs. NEUROLOGICAL: Gross neurological examination did not reveal any focal deficits. SKIN: No rashes. - Labs CBC & Chem 7: 09/20/18 08:08 09/20/18 08:08 Labs: Abnormal Lab Results - Last 24 Hours (Table) 09/19/18 09/19/18 09/20/18 Range/Units 17:10 20:11 06:42 WBC (3.8-10.6) k/uL RBC (4.30-5.90) m/uL Hgb (13.0-17.5) gm/dL Hct (39.0-53.0) % MCV (80.0-100.0) fL MCHC (31.0-37.0) g/dL RDW (11.5-15.5) % Plt Count (150-450) k/uL Neutrophils # (Manual) (1.3-7.7) k/uL Lymphocytes # (Manual) (1.0-4.8) k/uL Macrocytosis Sodium (137-145) mmol/L Chloride (98-107) mmol/L BUN (9-20) mg/dL Creatinine (0.66-1.25) mg/dL Glucose (74-99) mg/dL POC Glucose (mg/dL) 132 H 168 H 147 H (75-99) mg/dL Calcium (8.4-10.2) mg/dL ALT (21-72) U/L Total Protein (6.3-8.2) g/dL Albumin (3.5-5.0) g/dL 09/20/18 09/20/18 09/20/18 Range/Units 08:08 08:08 10:58 WBC 10.8 H (3.8-10.6) k/uL RBC 3.10 L (4.30-5.90) m/uL Hgb 10.1 L (13.0-17.5) gm/dL Hct 34.7 L (39.0-53.0) % MCV 111.7 H (80.0-100.0) fL MCHC 29.2 L (31.0-37.0) g/dL RDW 15.7 H (11.5-15.5) % Plt Count 551 H (150-450) k/uL Neutrophils # (Manual) 10.00 H (1.3-7.7) k/uL Lymphocytes # (Manual) 0.32 L (1.0-4.8) k/uL Macrocytosis Marked A Sodium 136 L (137-145) mmol/L Chloride 108 H (98-107) mmol/L BUN 4 L (9-20) mg/dL Creatinine 0.64 L (0.66-1.25) mg/dL Glucose 109 H (74-99) mg/dL POC Glucose (mg/dL) 72 L (75-99) mg/dL Calcium 8.0 L (8.4-10.2) mg/dL ALT 15 L (21-72) U/L Total Protein 4.8 L (6.3-8.2) g/dL Albumin 2.3 L (3.5-5.0) g/dL Assessment and Plan Plan: -Colovesical fistula status post diverticulum colostomy patient is an above- mentioned antibiotics -UTI with enterococcus on daptomycin as well as Zosyn to cover gut anaerobes enterococcus in the urine -Chronic anemia secondary to alcoholism and bone marrow suppression secondary to that patient has macrocytic anemia -Status post acute respiratory failure requiring intubation presently extubated clinically doing well almost ready to be discharged. -Patient was treated for acute delirium which resolved at this time -Generalized weakness and debility for which patient will need subacute rehabilitation
--- NOTE | 2018-09-20 16:34 | PN ---
PROGRESS NOTE PULMONARY/CRITICAL CARE PROGRESS NOTE: DATE OF SERVICE: 09/20/2018 This is a 73-year-old male status post diverting colostomy, postop day #4. The patient seems to be doing relatively well. He was discovered to have a colovesical fistula. The patient also has a history of urinary tract infection secondary to enterococcus as well as acute delirium, alcohol intoxication, and multiple electrolyte disturbances including hyponatremia and hypokalemia along with hypochloremia. The patient also has a history of chronic anemia, chronic alcohol and tobacco use, previous episode of pneumonia, generalized weakness and previous TIA. Currently doing relatively well. The nurse Geetha suspects the patient may be discharged to rehab tomorrow. He is sitting up in bed. He is very clinically stable. He is not complaining of anything in the way of pain or difficulty breathing. No chest discomfort. No nausea, vomiting or diarrhea. Current vital signs are reviewed. His temperature is 97.8 heart rate 69, respiratory rate 16, blood pressure 142/86, mean 104. 2 L saturation 98%. Appears in no acute distress. HEENT: Examination is grossly unremarkable. Mucous membranes are moist. No oral lesions. Neck is supple. Full range of motion. No adenopathy or thyromegaly. Neck veins are flat. CARDIOVASCULAR: Examination reveals regular rhythm rate. Heart rate 69 beats per minute. S1, S2 normal. LUNGS: Reveal mostly clear breath sounds. A few scattered mild rhonchi. No wheezes or crackles. ABDOMEN: Soft. Bowel sounds are heard. EXTREMITIES: Intact. No cyanosis, clubbing, or edema. SKIN: Without rash. NEUROLOGIC: Examination is brief but nonfocal. LABS: Reviewed. White count 10.8, hemoglobin 10.1, hematocrit 34.7, platelet count 551,000. Sodium 136, potassium 4.7 chloride 108, CO2 is 26. Anion gap is normal. BUN and creatinine were 4 and 0.64. Magnesium is 2. Calcium is 8. Albumin is 2.3. No recent chest x-ray to report. ASSESSMENT: 1. Postoperative day #4 status post diverting colostomy secondary to colovesical fistula. 2. Routine postoperative ventilator management, resolved. 3. Enterococcal urinary tract infection. 4. Acute delirium secondary to alcohol withdrawal syndrome. 5. History of chronic alcohol intoxication and alcohol abuse. 6. Hyponatremia. 7. Hypokalemia. 8. Chronic anemia. 9. Chronic tobacco use. 10.Chronic alcoholism with malnutrition. 11.Previous episode of pneumonia, 2016, left lower lobe. 12.Generalized weakness and debility secondary to malnutrition. 13.Left-sided weakness, likely secondary to transient ischemic attack. PLAN: Overall the patient seems to be improving very nicely. Labs are reviewed. Medications and so forth are reviewed. According to the nurse, he may be discharged to the retirement or rehab facility tomorrow. Currently, the patient's medications are reviewed and antibiotic-campbell include daptomycin and Zosyn. His other medications pf importance include updrafts, pain control medications, Protonix for GI prophylaxis and prednisone. We will continue to follow. MMODL / IJN: [id number] /
[2018-09-20] MEDS: HYDROcodone/APAP 5-325MG 1 EACH TAB PO PRN ×3 (16:38→23:48)
[2018-09-20 16:56] LABS: Glucose,Whole Blood 110 mg/dL (75-99)
--- NOTE | 2018-09-20 19:31 | PN ---
PROGRESS NOTE DATE OF SERVICE: 09/20/2018. REASON FOR FOLLOWUP: Acute diverticulitis with colovesical fistula and Enterococcus UTI. INTERVAL HISTORY: The patient is currently afebrile, has been breathing comfortably. No chest pain. Occasional cough. Denies any worsening abdominal pain. No nausea, vomiting. PHYSICAL EXAMINATION: Blood pressure 142/86, pulse of 69, temperature 97.9, he is 98% on 2 L nasal cannula. General description is an elderly male lying in bed in no distress. Respiratory system: Unlabored breathing. Clear to auscultation anteriorly. Heart S1, S2. Regular rate and rhythm. Abdomen soft. No tenderness. LABS: Hemoglobin 10.1 with a white count of 10.8 with a BUN of 4, creatinine 0.64. DIAGNOSTIC IMPRESSION AND PLAN: Patient with acute complicated sigmoid diverticulitis with colovesical fistula status post laparotomy and diverting colostomy. The patient at this time to continue with Zosyn and daptomycin with a plan to finish therapy with oral antibiotic on discharge. Continue supportive care. MMODL / IJN: [id number] /
[2018-09-20 20:08] LABS: Glucose,Whole Blood 158 mg/dL (75-99)
[2018-09-20 20:32] VITALS: PULSE 77; RESP 18
[2018-09-21] MEDS: HYDROcodone/APAP 5-325MG 1 EACH TAB PO PRN ×2 (03:47→07:49)
[2018-09-21 04:03] VITALS: BP 127/69; TEMP 97.8
[2018-09-21 06:49] LABS: Glucose,Whole Blood 83 mg/dL (75-99)
[2018-09-21] MEDS: INSULIN ASPART (NovoLOG) 100 UNIT/ML VIAL SQ SCH ×2 (07:19→11:55)
[2018-09-21] MEDS: PANTOPRAZOLE 40 MG TABLET PO SCH (07:50)
[2018-09-21] MEDS: HEPARIN SODIUM,PORCINE 5,000 UNIT/ML 1 ML VIAL SQ SCH (07:50)
[2018-09-21] MEDS: METOPROLOL TARTRATE 12.5 MG TAB PO SCH (07:50)
[2018-09-21] MEDS: MULTIVITAMINS, THERA 1 EACH TAB PO SCH (07:50)
[2018-09-21] MEDS: predniSONE 10 MG TAB PO SCH (07:51)
[2018-09-21] MEDS: ASPIRIN 325 MG TAB PO SCH (07:51)
[2018-09-21] MEDS: THIAMINE 100 MG TAB PO SCH (08:39)
[2018-09-21] MEDS: PIPERACILLIN-TAZOBACTAM 3.375 GM in SODIUM CHLORIDE 0.9% 100 ML IVPB SCH (08:39)
--- NOTE | 2018-09-21 10:54 | P.PN ---
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 Patient was brought in by an ambulance, and reportedly he tripped while walking and fell backwards hitting back of his head on the fridge. There was no loss of consciousness at the time of the incident, and patient's daughter called the ambulance with the patient for evaluation. The patient was drinking prior to the incident. He denies any headaches, lightheadedness, dizziness, denied any vision changes, no nausea vomiting or diarrhea. Not on any blood thinners. CT of the head and cervical spine was completed and showed moderate cerebral atrophy, no acute intracranial abnormality and mild spondylosis at C6 and 7 no acute fractures were seen. He was kept overnight in the emergency department, he was started on CIWA protocol for acute alcohol withdrawal syndrome. Lab work was completed in the emergency department and showed a white blood cell count of 6.1, hemoglobin of 9.4, sodium was 134, potassium is 2.5 and this was replaced per protocol, chloride was 94, CO2 is 31, BUN was 13 creatinine was 0.87, AST is 31, ALT was 20, alkaline phosphatase was 147, proBNP was 525. Patient was noted to have decreased oxygenation, decreased sats, after Ativan was given proceed with protocol. His decreased air movement auscultated on the left side, he was placed on 100% nonrebreather and his pulse ox is 88-89%, chest x-ray was obtained, showing stable left-sided consolidation and pleural effusion, hemodynamically related to aspiration pneumonia and asymmetric pulmonary edema. She was started on breathing treatments, antibiotics in the form of Zosyn, and is admitted to the intensive care unit for closer monitoring. She was given IV hydration in the emergency department with a liter bolus, and maintenance IV is 0.9 normal saline at a rate of 50 ML per hour. During my evaluation patient is quite lethargic, but opens eyes to verbal stimuli, and he is quite confused, he is only oriented to person, and he thinks he is in [place], he remains on 100% nonrebreather his current pulse ox is 90-92%, hemodynamically stable, blood pressure is 112/86, afebrile. on today's evaluation of 09/08/2018, the patient was seen quite awake and alert this morning. There has been improvement in the mental status since yesterday. Overnight, the patient was brought into the intensive care because of an aspiration. Significant diminished breath sounds in the left lung base along with some volume loss in the chest x-ray. He was placed on on the percent nonrebreather facemask. He was given aggressive chest PT. He was kept nothing by mouth. Overnight he improved and earlier this morning he was weaned down to 6 L about 2 by nasal cannula and he was able to maintain a saturation above 90%. His breathing was not labored. He had a congested cough. Unable to bring up much sputum. The cough strength has improved compared to yesterday. He has no signs of any agitation. In fact neurologically seemed to do much more alert and awake and following commands and responding to questions. Later on by early afternoon, the patient became more confused and restless. At that point we implemented this CIWA protocol and the patient was given Ativan which controlled his been eating. The patient is currently on antibiotics. The patient on IV Zosyn. The chest x-ray from today shows showed volume loss in the right lung base along with development of bilateral pleural effusion. Based on all this, I kept on the IV fluids to KVO. I gave the patient dose of Lasix 40 mg IV push and following that the patient producing adequate amount of urine output in the order of 750 mL. He remains in oxygen by nasal cannula at 6 L. Significant leukocytosis. Hemoglobin stable at 8.7. Function is stable. No other significant events otherwise for now. The main concern for now is his concern for pneumonia, respiratory failure and early a.m. His cough and mechanism has improved although it remains quite weak and somewhat ineffective and performing adequate pulmonary toileting. On 09/09/2018, the patient remains quite lethargic yet arousable. Chest x-ray still showing bilateral basal infiltrate and small better pleural effusion. His cough and presented to bring up much of sputum and his cough is weak. He is receiving PT. He is on 40% oxygen nasal cannula and his pulse is now 94%. I think that there is some aspiration related mucous plugs which the patient is unable to cough out. Nevertheless, despite his x-ray findings, he still breathing comfortably on 4 L of oxygen nasal cannula. No chest pain. No hemoptysis. No pleurisy. No agitation. He is breathing is nonlabored. He is receiving IV Zosyn. He is on IV Solu Medrol 40 mg every 8 hours. He is on DuoNeb nebulized treatments around the clock. His ammonia level is less than 9. On 09/10/2018, the patient is doing progress. He seems to be more awake. Is able to cough more effectively. His FiO2 has improved and is down to 40s about 2 by nasal cannula. His breathing is nonlabored. Chest x-ray showing bilateral consolidation lower lobe effusions. No chest pain. No aspiration. Is tolerating his diet is on DuoNeb nebulized treatment [id number] is on IV Solu-Medrol. He is on IV Zosyn. He is able to sit up on a chair. He remains quite weak and lethargic yet interactive and more talkative and communicating compared to yesterday. No focal neurological deficits for now. His urine remains quite cloudy and there is significant amount of sediment. The previously sent culture was contaminant and for that reason we sent another UA and urine culture. UA came back positive for white cells along with few clumps and there was occasional bacteria. There was also some crystals. Cultures are still pending for now. The patient is still on IV Zosyn. No seizure activity. No visual or auditory hallucinations on today's evaluation. On 09/11/2018, the patient is being seen in the medical floor. He is doing well. No significant complaints for now. He seems to much more alert and awake. No hallucinations. No delusions. No tremors. No altered mentation. Echocardiogram is to be done today. No significant respiratory distress. Currently he is on 4 L of oxygen nasal cannula. He was diuresed with IV Lasix and the dose of Lasix was given to him overnight. He is on a IV Solu Medrol which will be tapered down to prednisone burst taper. He is tolerating his diet. No nausea. No vomiting. Urine culture is still pending for now. Meanwhile, the patient does not show any signs of septicemia. He remains on IV Zosyn. On 09/12/2018, the patient got transferred back to the intensive care unit. Overnight the patient became more short of breath, lethargic, hypoxic, and he was found to have significant abdominal distention. I recommended an NG tube placement. Following that, the patient was sent for a CAT scan of the chest and abdomen and it showed emphysema, bilateral multifocal pneumonia, bilateral pleural effusion right more than left, and no acute intra-abdominal findings. NG tube was removed 9 GERD output was minimal. The patient this morning is feeling much better. His lactic acid levels are improving. He has no chest pain. No minutes cough without any significant sputum production. He was given a dose of Lasix following which produced excellent urine output. He has a Benedict catheter in place. The urine quality has improved symptomatically at this point in time nontender this was very cloudy and purulent. Cultures of been negative. The patient remains on IV Zosyn. Right-sided thoracentesis is being considered for now. On 09/13/2018, the patient is doing well. No respiratory distress. I performed a thoracentesis on him yesterday and total of 1 L of pleural fluid was aspirated from the right lung. Chest x-ray from today shows a small amount of effusion the left. He is swallowing well. No aspiration or sputum production. No respiratory distress. He is on 40s about 2 by nasal cannula. Meanwhile, the Benedict cath is in place. The urine output for now is quite clean. 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 This explains the constant abnormalities in the urine analysis is worsening in this patient. He remains on IV Zosyn. Gen. surgery has been consulted regarding a fistulous connection between the bladder and the sigmoid colon. No abdominal pain. No signs of any septicemia for the time being. Benedict catheter will be kept in place. On 09/06/2018 patient seen in follow-up on medical surgical floor. is resting comfortably in bed, in no acute distress, he is awake, alert to person, place, disoriented to time, but he knew who the president was. afebrile, hemodynamically stable, denies any difficulty breathing, lung sounds are reveal diffuse wheezes,patient is on oral prednisone, Zosyn for antibiotic coverage. No signs of DTs.his labs have been reviewed and showed white blood cell count is 5.7, hemoglobin is 7.6, serum phosphorus was 3.7, magnesium was 2.3. BMP was not done. On 09/15/2018 patient is seen in follow-up on medical surgical floor. Patient is resting in bed, he denies any acute distress, lung sounds are positive for a few scattered rales and wheezes, Nonproductive Cough. No signs of DTs. No complaints of worsening dyspnea, chest pain, cough or congestion. Remains on oral prednisone, Zosyn and Daptomycin for antibiotic coverage, patient is scheduled for colonoscopy sometime tomorrow. Benedict catheter remains in place and is draining clear yellow urine. His labs have been reviewed serum sodium is 1.36, potassium is 4.3, chloride is 100, CO2 is 35, BUN is 9 creatinine 0.69. Daptomycin was added by ID service yesterday for evidence of enterococcus faecium in urine. On 09/21/2018 patient seen in follow-up on medical surgical floor. He is awake and alert, he is in no distress, currently on 2 L of oxygen with a pulse ox of 99, he is afebrile, hemodynamically patient is stable. No complaints of shortness of breath, he is working his incentive spirometer, no signs of altered mentation, no fever or chills. No new labs, no chest x-ray today. Patient is being treated for enterococcus ECM urinary tract infection, current antibiotic coverage, remains on daptomycin and Zosyn. He is on oral prednisone, breathing treatments, lung sounds reveal a few scattered rales and wheezes. Occasional nonproductive cough. She is tolerating oral diet, he status post diverting colostomy for colovesicular fistula. Left lower abdominal ostomy with green liquid stool output, no nausea or vomiting. Pain is controlled. He is being discharged to [facility] Objective - Vital Signs Vital signs: Vital Signs Temp 97.8 F 09/21/18 04:02 Pulse 77 09/21/18 00:03 Resp 18 09/21/18 04:02 BP 127/69 09/21/18 04:02 Pulse Ox 99 09/21/18 07:10 Intake & Output 09/20/18 09/21/18 09/21/18 18:59 06:59 18:59 Intake Total 100 Output Total 3500 630 Balance -3500 -530 Weight 71.8 kg Intake: IV 100 Piperacillin-Tazobactam 3 100 .375 gm In Sodium Chloride 0.9% 100 ml @ 25 mls/hr IVPB Q8HR [facility] Rx# :[id number] Output: Urine 3150 630 Stool 350 Other: Voiding Method Urinal # Voids 1 ABP, PAP, CO, CI - Last Documented Arterial Blood Pressure 136/63 - Exam GENERAL EXAM: Alert, pleasant, 73-year-old white male comfortable in no apparent distress on 2 L of oxygen with a pulse ox of 99% HEAD: Normocephalic/atraumatic. EYES: Normal reaction of pupils, equal size. Conjunctiva pink, sclera white. NOSE: Clear with pink turbinates. THROAT: No erythema or exudates. NECK: No masses, no JVD, no thyroid enlargement, no adenopathy. CHEST: No chest wall deformity. Symmetrical expansion. LUNGS: Equal air entry with a few bibasilar crackles, and minimal wheezes CVS: Regular rate and rhythm, normal S1 and S2, no gallops, no murmurs, no rubs ABDOMEN: Soft, nontender. No hepatosplenomegaly, normal bowel sounds, no guarding or rigidity. Left abdomen colostomy with liquid green stool EXTREMITIES: No clubbing, 1+ lower extremity edema no cyanosis, 2+ pulses and upper and lower extremities. MUSCULOSKELETAL: Muscle strength and tone normal. SPINE: No scoliosis or deformity SKIN: No rashes CENTRAL NERVOUS SYSTEM: Alert and oriented -3. No focal deficits, tone is normal in all 4 extremities. PSYCHIATRIC: Alert and oriented -3. Appropriate affect. Intact judgment and insight. - Labs CBC & Chem 7: 09/20/18 08:08 09/20/18 08:08 Labs: Abnormal Lab Results - Last 24 Hours (Table) 09/20/18 09/20/18 09/20/18 Range/Units 08:08 10:58 16:54 Neutrophils # (Manual) 10.00 H (1.3-7.7) k/uL Lymphocytes # (Manual) 0.32 L (1.0-4.8) k/uL POC Glucose (mg/dL) 72 L 110 H (75-99) mg/dL 09/20/18 Range/Units 20:06 Neutrophils # (Manual) (1.3-7.7) k/uL Lymphocytes # (Manual) (1.0-4.8) k/uL POC Glucose (mg/dL) 158 H (75-99) mg/dL Assessment and Plan Plan: Assessment: 1 status post diverting colostomy, presently on mechanical ventilation, po stoperative day #5 2: The colovesical fistula, status post diverting colostomy. 3 urinary tract infection secondary to enterococcus, remains on daptomycin. And Zosyn. #4. Acute delirium, related to acute alcohol withdrawal syndrome, resolved. #5. Alcohol intoxication, resolved. #6. Electrolyte abnormalities including mild hyponatremia, severe hypokalemia, hypochloremia, and increased CO2, hemodynamically related to patient's chronic alcoholism, poor nutrition, and dehydration, resolved. #7. Chronic anemia #8. Chronic cigarette smoker, counseled regarding smoking cessation. #9. Chronic alcoholism with underlying malnutrition #10. Previous episode of pneumonia involving the left lower lobe in 2016 #11. Generalized weakness and debility and malnourishment , improving. #12 left-sided weakness, resolved, most likely secondary to TIA. Plan: Patient is stable from pulmonary perspective, no fever or chills, no difficulty breathing, encourage deep breathing and coughing, vital signs are stable. Stable for discharge to subacute rehab facility today with antibiotics per ID service recommendations. I performed a history & physical examination of the patient and discussed their management with my nurse practitioner, Kaelyn Lamar. I reviewed the nurse practitioner's note and agree with the documented findings and plan of care. Lung sounds are positive for decreased air movement on the left side. The findings and the impression was discussed with the patient. I attest to the documentation by the nurse practitioner. Time with Patient: Less than 30
[2018-09-21 11:19] LABS: Glucose,Whole Blood 85 mg/dL (75-99)
[2018-09-21] MEDS ORDERED: FUROSEMIDE 10 MG/ML 2 ML VIAL IV ONE (11:41)
--- NOTE | 2018-09-21 11:55 | P.DS ---
Providers Date of admission: 09/07/18 00:12 Attending physician: Ismael Day Consults: 09/07/18 16:02 Consult Physician Routine Consulting Provider: Wil Anderson Consult Reason/Comments: shortness of breath, difficulty oxygenating Do you want consulting provider notified?: Yes 09/12/18 01:21 Consult Physician Urgent Consulting Provider: Kwesi Ochoa Consult Reason/Comments: stool colored consistency urine Do you want consulting provider notified?: Yes 09/12/18 17:19 Consult Physician Routine Consulting Provider: Trevon Francis Consult Reason/Comments: Fistula betwen urinary bladdar and sigmoid colon Do you want consulting provider notified?: Yes 09/14/18 15:30 Consult Physician Routine Consulting Provider: Pushpa Weiner Consult Reason/Comments: enterococcus faecium UTI, colovesicular fistula Do you want consulting provider notified?: Yes 09/16/18 15:59 Consult Physician Urgent Consulting Provider: Bhupinder May Consult Reason/Comments: Left side weakness Do you want consulting provider notified?: Already Contacted 09/16/18 16:01 Consult Physician Urgent Consulting Provider: [facility] Consult Reason/Comments: elevated trop Do you want consulting provider notified?: Yes Consult Physician Urgent Consulting Provider: Roc Pretty Consult Reason/Comments: elevated troponins Do you want consulting provider notified?: Already Contacted Primary care physician: Stated None Hospital Course: Patient was admitted for delirium and the was treated for alcohol withdrawal with those resolved. Patient is found to have colovesical fistula for which patient had diverting colostomy patient is also being treated with the daptomycin for enterococcus which is resistant to Zosyn. And had respiratory failure during this hospitalization was intubated. Patient has edema of both the legs because of IV fluids he was receiving IV fluids will be discussed in patient will be given a dose of Lasix. Patient does have bowel movements into the colostomy bag abdomen is rigid but not tender. Patient is overall clinically doing well will not check with infectious disease regarding antibiotics and necessity of IV antibiotics for possibility of discharge most probably to subacute rehabilitation tomorrow. 09/21/2018 Patient is clinically doing well his bilateral pedal edema improved patient will be discharged today and give him one more dose of Lasix for peripheral edema. Dr. gomez will decide about the antibiotics. PHYSICAL EXAMINATION: GENERAL: The patient is alert and oriented x3, not in any acute distress. Well developed, well nourished. HEENT: Pupils are round and equally reacting to light. EOMI. No scleral icterus. No conjunctival pallor. Normocephalic, atraumatic. No pharyngeal erythema. No thyromegaly. CARDIOVASCULAR: S1 and S2 present. No murmurs, rubs, or gallops. PULMONARY: Chest is clear to auscultation, no wheezing or crackles. ABDOMEN: Distended does have bowel movements into colostomy bag surgical site areas appear to be clean MUSCULOSKELETAL: No joint swelling or deformity. EXTREMITIES: No cyanosis, clubbing, pedal edema improved NEUROLOGICAL: Gross neurological examination did not reveal any focal deficits. SKIN: No rashes. ssessment and Plan Plan: -Colovesical fistula status post diverticulum colostomy -UTI with enterococcus on daptomycin as well as Zosyn to cover gut anaerobes enterococcus in the urine discharge and antiemetics as per infectious disease -Chronic anemia secondary to alcoholism and bone marrow suppression secondary to that patient has macrocytic anemia -Status post acute respiratory failure requiring intubation presently extubated clinically doing well almost ready to be discharged. -Patient was treated for acute delirium which resolved at this time -Generalized weakness and debility for which patient will need subacute rehabilitation Patient Condition at Discharge: Stable Plan - Discharge Summary Discharge Rx Participant: Yes New Discharge Prescriptions: New Aspirin 81 mg PO DAILY #30 chewable Ipratropium-Albuterol Nebulize [Duoneb 0.5 mg-3 mg/3 ml Soln] 3 ml INHALATION RT-QID PRN ampul.neb PRN Reason: Shortness Of Breath Or Wheezing Metoprolol Tartrate [Lopressor] 12.5 mg PO BID tab Multivitamins, Thera [Multivitamin (formulary)] 1 each PO DAILY tab predniSONE 10 mg PO DAILY tab Pantoprazole [Protonix] 40 mg PO DAILY tablet. Thiamine [Vitamin B-1] 100 mg PO BID-W/MEALS tab Discontinued Aspirin EC [Ecotrin] 325 mg PO QID PRN PRN Reason: Pain Discharge Medication List Aspirin 81 mg PO DAILY #30 chewable 09/21/18 [Rx] Ipratropium-Albuterol Nebulize [Duoneb 0.5 mg-3 mg/3 ml Soln] 3 ml INHALATION RT-QID PRN ampul.neb 09/21/18 [Rx] Metoprolol Tartrate [Lopressor] 12.5 mg PO BID tab 09/21/18 [Rx] Multivitamins, Thera [Multivitamin (formulary)] 1 each PO DAILY tab 09/21/18 [Rx] Pantoprazole [Protonix] 40 mg PO DAILY tablet. 09/21/18 [Rx] Thiamine [Vitamin B-1] 100 mg PO BID-W/MEALS tab 09/21/18 [Rx] predniSONE 10 mg PO DAILY tab 09/21/18 [Rx] Follow up Appointment(s)/Referral(s): None,Stated [Primary Care Provider] - 1-2 days Trevon Francis MD [STAFF PHYSICIAN] - 1 Week Patient Instructions/Handouts: Diverticulitis (GEN), Colostomy Care (GEN), Fall Prevention for Older Adults (ED) Activity/Diet/Wound Care/Special Instructions: Colostomy Care Recommendations for transition after hospital: Last date of colostomy pouching system : 09.20.2018 Convatec flanges #[id number] (three from the hospital provided) Convatec pouches #[id number] (three from the hospital provided) No sting prep pads (12 from the hospital) Osotmy powder (as needed around the stoma) (one from the hospital provided) Mr Rosas to empty the pouch when it is 1/2 to 1/3 full int he bathroom Mr Rosas is to change the pouching system every 3-5 days unless otherwise directed by the RN or surgeon Discharge Disposition: TRANSFER TO SNF/ECF
--- NOTE | 2018-09-21 13:14 | P.PN ---
Subjective Progress Note Date: 09/21/18 CHIEF COMPLAINT: Diverticulitis with colovesicular fistula HISTORY OF PRESENT ILLNESS: Patient examined this afternoon. Patient sitting in the chair. Patient s/p diverting colostomy with Dr. Francis. patient tolerating regular diet. Ostomy with gas present. Denies nausea or vomiting. Pain is tolerable at this time. PHYSICAL EXAM: VITAL SIGNS: Reviewed. GENERAL: Well-developed in no acute distress. HEENT: No sclera icterus. Extraocular movements grossly intact. Moist buccal mucosa. Head is atraumatic, normocephalic. ABDOMEN: Nontender. Dressing to midline with shadowing present. Ostomy intact. NEUROLOGIC: Awake and alert. Oriented x 3. ASSESSMENT: 1. Diverticulitis with colovesicular fistula PLAN: Continue regular diet Activity as tolerated Incentive spirometry Discharge per medicine Nurse practitioner note has been reviewed by physician. Signing provider agrees with the documented findings, assessment, and plan of care. Objective - Vital Signs Vital signs: Vital Signs Temp 97.8 F 09/21/18 04:02 Pulse 77 09/21/18 00:03 Resp 18 09/21/18 04:02 BP 127/69 09/21/18 04:02 Pulse Ox 99 09/21/18 07:10 Intake & Output 09/20/18 09/21/18 09/21/18 18:59 06:59 18:59 Intake Total 100 Output Total 3500 630 500 Balance -3500 -530 -500 Weight 71.8 kg Intake: IV 100 Piperacillin-Tazobactam 3 100 .375 gm In Sodium Chloride 0.9% 100 ml @ 25 mls/hr IVPB Q8HR [facility] Rx# :[id number] Output: Urine 3150 630 500 Stool 350 Other: Voiding Method Urinal # Voids 1 ABP, PAP, CO, CI - Last Documented Arterial Blood Pressure 136/63 - Labs CBC & Chem 7: 09/20/18 08:08 09/20/18 08:08 Labs: Abnormal Lab Results - Last 24 Hours (Table) 09/20/18 09/20/18 Range/Units 16:54 20:06 POC Glucose (mg/dL) 110 H 158 H (75-99) mg/dL
--- NOTE | 2018-09-21 15:56 | PN ---
PROGRESS NOTE DATE OF SERVICE: 09/21/2018. REASON FOR FOLLOWUP: Complicated sigmoid diverticulitis, colovesical fistula, Enterococcus UTI. INTERVAL HISTORY: The patient is currently afebrile. The patient has been breathing comfortably. Denies having any chest pain or any cough. Abdominal pain is currently improving. Benedict catheter has been discontinued. He is able to urinate without any burning. PHYSICAL EXAMINATION: Blood pressure 127/69 with a pulse of 77. Temperature 97.8. He is 99% on 2 L nasal cannula. General description is an elderly male lying in bed in no distress. Respiratory system: Unlabored breathing. Clear to auscultation anteriorly. HEART: S1, S2. Regular rate and rhythm. Abdomen soft, no tenderness. LABS: Hemoglobin is 10.1, white count 10.8. BUN of 4, creatinine 0.64. DIAGNOSTIC IMPRESSION AND PLAN: Patient with complicated diverticulitis with colovesical fistula. Urine culture resistant. The patient has shown overall improvement on Zosyn and daptomycin that will be transitioned to oral Augmentin and Macrobid for about a week with close outpatient followup. MMODL / IJN: [id number] /
--- NOTE | 2018-09-23 05:19 | CDI ---
Documentation Clarification Form Date:09/23/18 From: Kalpesh Dyer Phone: call [phone] Admit Date: 09/07/2018 12:12:00 AM Patient Name: Cayetano Rosas Visit Number: [id number] Discharge Date: 09/21/2018 3:10:00 PM ATTENTION: The Clinical Documentation Specialists (CDI) and [facility] Coding Staff appreciate your assistance in clarifying documentation. Please respond to the clarification below the line at the bottom and electronically sign. The CDI & [facility] Coding staff will review the response and follow-up if needed. Please note: Queries are made part of the Legal Health Record. If you have any questions, please contact the author of this message via ITS. Dr. Bhupinder May, CHF is documented under your consult note and progress notes, 09/16 consult note and 09/18 Progress note mentioned as CHF systolic funtion impaired. EF 20-25% History/Risk Factors: ARF, Pleural effusion, Aspiraion pneumonia. Clinical Indicators: Pleural effusion, lower extremity edema, BNP not obtained. BNP: not obtained. Echocardiogram Results: Overall left ventricular systolic function is severely impaired with, an EF between 20 - 25%. Treatment: Thoracentesis, IV lasix. In your professional opinion, can you please clarify the acuity and type of CHF if known? Systolic Heart Failure: Acute Chronic Acute on Chronic Diastolic Heart Failure: Acute Chronic Acute on Chronic Unable to Determine Other, please specify It was one of the problem list so I put in the impression part of the note. I would not know the answer to your questions. Please check with patient's Spinning Bath Patroller, internal medicine (PCP) or principal statistical programmer to answer that question. Thanks MARBELLA
== END 2018-09-21 15:10 | DRG 981 ==
LOC: EC 19:24 → 2SICU 09-07 00:12 → 3SCARD 09-11 01:13 → 2SICU 09-12 02:57 → 4SSUR 09-13 06:54 → 2SICU 09-16 13:59 → 3NMEDONC 09-18 14:17
PROVIDERS: ADMIT Hospitalist; ATTEND Hospitalist
PROC: 02HV33Z Insertion of Infusion Device into Superior Vena Cava, Percutaneous Approach (ICD-10-PCS; 2018-09-07)
PROC: 0W9B3ZZ Drainage of Left Pleural Cavity, Percutaneous Approach (ICD-10-PCS; principal; 2018-09-16 08:30)
PROC: 5A1945Z Respiratory Ventilation, 24-96 Consecutive Hours (ICD-10-PCS; principal; 2018-09-16 08:30)
PROC: 0DJD8ZZ Inspection of Lower Intestinal Tract, Via Natural or Artificial Opening Endoscopic (ICD-10-PCS; principal; 2018-09-16 08:30)
PROC: 0D1M0Z4 Bypass Descending Colon to Cutaneous, Open Approach (ICD-10-PCS; principal; 2018-09-16 08:30)
DX: F10.231 Alcohol dependence with withdrawal delirium (principal); J69.0 Pneumonitis due to inhalation of food and vomit; J96.01 Acute respiratory failure with hypoxia; G92 Toxic encephalopathy; D61.818 Other pancytopenia; E87.1 Hypo-osmolality and hyponatremia; N39.0 Urinary tract infection, site not specified; E44.1 Mild protein-calorie malnutrition; K57.32 Diverticulitis of large intestine without perforation or abscess without bleeding; N32.1 Vesicointestinal fistula; J44.1 Chronic obstructive pulmonary disease with (acute) exacerbation; J90 Pleural effusion, not elsewhere classified; G45.9 Transient cerebral ischemic attack, unspecified; I42.6 Alcoholic cardiomyopathy; I50.20 Unspecified systolic (congestive) heart failure; E87.8 Other disorders of electrolyte and fluid balance, not elsewhere classified; D53.9 Nutritional anemia, unspecified; F17.210 Nicotine dependence, cigarettes, uncomplicated; R53.81 Other malaise; E87.6 Hypokalemia; E86.1 Hypovolemia; T17.990A Other foreign object in respiratory tract, part unspecified in causing asphyxiation, initial encounter; Y90.9 Presence of alcohol in blood, level not specified; W01.0XXA Fall on same level from slipping, tripping and stumbling without subsequent striking against object, initial encounter; R29.6 Repeated falls; Z16.11 Resistance to penicillins; K21.9 Gastro-esophageal reflux disease without esophagitis; E83.51 Hypocalcemia; Y93.01 Activity, walking, marching and hiking; I73.9 Peripheral vascular disease, unspecified; D63.8 Anemia in other chronic diseases classified elsewhere; E86.0 Dehydration; B95.2 Enterococcus as the cause of diseases classified elsewhere; Z68.20 Body mass index [BMI] 20.0-20.9, adult; Z87.01 Personal history of pneumonia (recurrent); Z82.49 Family history of ischemic heart disease and other diseases of the circulatory system; Z83.79 Family history of other diseases of the digestive system; Z90.49 Acquired absence of other specified parts of digestive tract; Z87.440 Personal history of urinary (tract) infections; Z86.73 Personal history of transient ischemic attack (TIA), and cerebral infarction without residual deficits; Z79.82 Long term (current) use of aspirin; Y92.009 Unspecified place in unspecified non-institutional (private) residence as the place of occurrence of the external cause
CPT/HCPCS: 36415; 36600; 45378; 70450; 70496; 70498; 71045; 71250; 72125; 72192; 74018; 74176; 76770; 80048; 80053; 81001; 82075; 82140; 82150; 82550; 82570; 82607; 82728; 82746; 82805; 82945; 82947; 83036; 83540; 83550; 83605; 83615; 83690; 83735; 83880; 84100; 84132; 84157; 84443; 84484; 85025; 85027; 85379; 85610; 85730; 86850; 86900; 86901; 87070; 87077; 87086; 87186; 87205; 88108; 88305; 88341; 88342; 89050; 93005; 93306; 94002; 94003; 94640; 94760; 96365; 96366; 96372; 99285

== ENCOUNTER 2018-11-14 09:11 | Emergency (ER) | payer MEDICARE ==
--- NOTE | 2018-11-14 09:53 | ED ---
General Adult HPI - General Chief complaint: Recheck/Abnormal Lab/Rx Stated complaint: trouble with colostomy bag Time Seen by Provider: 11/14/18 09:26 Source: patient Mode of arrival: ambulatory Limitations: no limitations - History of Present Illness Initial comments: Dictation was produced using [employer] dictation software. please excuse any grammatical, word or spelling errors. Chief Complaint: 73-year-old male brought in by family member for decreased ostomy output. History of Present Illness: 73-year-old male presents with decreased ostomy output. He is brought in by daughter who states that it appears like his ostomy is not working. Patient has no complaints at this time. No nausea vomiting. Patient is eating normally. He is not currently on a bowel regimen. There was mild small piece of hard stool that was found in his ostomy bag. There is concerned that maybe his ostomy wasn't working. 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 Surgery was performed back in August. The ROS documented in this emergency department record has been reviewed and confirmed by me. Those systems with pertinent positive or negative responses have been documented in the HPI. All other systems are other negative and/or noncontributory. PHYSICAL EXAM: General Impression: Alert and oriented x3, not in acute distress HEENT: Normocephalic atraumatic, extra-ocular movements intact, pupils equal and reactive to light bilaterally, mucous membranes moist. Cardiovascular: Heart regular rate and rhythm, S1&S2 audible, no murmurs, rubs or gallops Chest: Lungs clear to auscultation bilaterally, no rhonchi, no wheeze, no rales Abdomen: Bowel sounds present, abdomen soft, non-tender, non-distended, no organomegaly, left lower quadrant ostomy, ostomy site is clean dry and intact, ostomy is pink and well perfused. Ostomy rectal examination shows no blockage or palpable stool. Musculoskeletal: Pulses present and equal in all extremities, no peripheral edema Motor: no focal deficits noted Neurological: CN II-XII grossly intact, no focal motor or sensory deficits noted Skin: Intact with no visualized rashes Psych: Normal affect and mood ED course: 73-year-old male with a chief complaint of decreased ostomy output. Vital signs upon arrival are within acceptable limits. Patient's well- appearing. Physical examination is unremarkable. Ostomy site is well-appeari ng. Laboratory evaluation obtained showing no acute processes. Abdominal x-ray is nonacute. Patient's well-appearing at bedside. Ostomy looks well. Patient clear for discharge. Told to follow-up with primary care physician. - Related Data Allergies Allergy/AdvReac Type Severity Reaction Status Date / Time lorazepam [From Ativan] AdvReac Severe Unknown Verified 11/14/18 09:49 Review of Systems ROS Statement: Those systems with pertinent positive or pertinent negative responses have been documented in the HPI. ROS Other: All systems not noted in ROS Statement are negative. Past Medical History Past Medical History: No Reported History Additional Past Medical History / Comment(s): Severe anemia, previous pneumonia involving the left lower lobe for which he was hospitalized at [facility] in 2016, chronic smoker, alcoholism, malnutrition History of Any Multi-Drug Resistant Organisms: None Reported Past Surgical History: Tonsillectomy Additional Past Surgical History / Comment(s): bowel resection, colostomy Past Anesthesia/Blood Transfusion Reactions: Unable to Obtain Past Psychological History: No Psychological Hx Reported Smoking Status: Current every day smoker Past Alcohol Use History: None Reported, Abuse, Daily, Heavy Past Drug Use History: None Reported - Past Family History Mother Additional Family Medical History / Comment(s): from cirrhosis Father Additional Family Medical History / Comment(s): from [place] General Exam Limitations: no limitations Course Vital Signs 11/14/18 09:16 Temperature 98.0 F Pulse Rate 86 Respiratory 18 Rate Blood Pressure 127/71 O2 Sat by Pulse 97 Oximetry Medical Decision Making - Lab Data Result diagrams: 11/14/18 09:35 11/14/18 09:35 Lab Results 11/14/18 11/14/18 Range/Units 09:35 09:35 WBC 6.2 (3.8-10.6) k/uL RBC 3.48 L (4.30-5.90) m/uL Hgb 11.2 L (13.0-17.5) gm/dL Hct 35.9 L (39.0-53.0) % MCV 103.0 H (80.0-100.0) fL MCH 32.1 (25.0-35.0) pg MCHC 31.1 (31.0-37.0) g/dL RDW 16.3 H (11.5-15.5) % Plt Count 421 (150-450) k/uL Neutrophils % 70 % Lymphocytes % 20 % Monocytes % 6 % Eosinophils % 2 % Basophils % 1 % Neutrophils # 4.3 (1.3-7.7) k/uL Lymphocytes # 1.2 (1.0-4.8) k/uL Monocytes # 0.4 (0-1.0) k/uL Eosinophils # 0.1 (0-0.7) k/uL Basophils # 0.1 (0-0.2) k/uL Hypochromasia Slight Anisocytosis Slight Macrocytosis Moderate Sodium 139 (137-145) mmol/L Potassium 4.4 (3.5-5.1) mmol/L Chloride 104 (98-107) mmol/L Carbon Dioxide 22 (22-30) mmol/L Anion Gap 13 mmol/L BUN 11 (9-20) mg/dL Creatinine 0.78 (0.66-1.25) mg/dL Est GFR (CKD-EPI)AfAm >90 (>60 ml/min/1.73 sqM) Est GFR (CKD-EPI)NonAf >90 (>60 ml/min/1.73 sqM) Glucose 86 (74-99) mg/dL Calcium 9.1 (8.4-10.2) mg/dL Magnesium 2.2 (1.6-2.3) mg/dL Total Bilirubin 0.3 (0.2-1.3) mg/dL AST 20 (17-59) U/L ALT 12 L (21-72) U/L Alkaline Phosphatase 86 (38-126) U/L Total Protein 7.1 (6.3-8.2) g/dL Albumin 3.8 (3.5-5.0) g/dL Lipase 67 (23-300) U/L Disposition Clinical Impression: Complication of ostomy Disposition: HOME SELF-CARE Condition: Good Is patient prescribed a controlled substance at d/c from ED?: No Referrals: Timo Grewal DO [Primary Care Provider] - 1-2 days Time of Disposition: 11:37
[2018-11-14] MEDS ORDERED: POLYETHYLENE GLYCOL 3350 17 GM POWD.PACK PO STA (09:54)
[2018-11-14 10:10] LABS: ALT 12 U/L (21-72); AST 20 U/L (17-59); African American GFR (CKD) >90 (>60 ml/min/1.73 sqM); Albumin 3.8 g/dL (3.5-5.0); Alkaline Phosphatase 86 U/L (38-126); Anion Gap 13 mmol/L; Blood Urea Nitrogen 11 mg/dL (9-20); Calcium 9.1 mg/dL (8.4-10.2); Carbon Dioxide 22 mmol/L (22-30); Chloride 104 mmol/L (98-107); Glucose 86 mg/dL (74-99); Magnesium 2.2 mg/dL (1.6-2.3); Potassium 4.4 mmol/L (3.5-5.1); Sodium 139 mmol/L (137-145); Total Bilirubin 0.3 mg/dL (0.2-1.3); Total Protein 7.1 g/dL (6.3-8.2)
[2018-11-14 10:12] LABS: Anisocytosis Slight; Basophils # (A) 0.1 k/uL (0-0.2); Basophils % (A) 1 %; Eosinophils # (A) 0.1 k/uL (0-0.7); Eosinophils % (A) 2 %; HCT 35.9 % (39.0-53.0); HGB 11.2 gm/dL (13.0-17.5); Hypochromasia Slight; Lymphocytes # (A) 1.2 k/uL (1.0-4.8); Lymphocytes % (A) 20 %; MCH 32.1 pg (25.0-35.0); MCHC 31.1 g/dL (31.0-37.0); Macrocytosis Moderate; Mean Platelet Volume 6.8; Monocytes # (A) 0.4 k/uL (0-1.0); Monocytes % (A) 6 %; Neutrophils # (A) 4.3 k/uL (1.3-7.7); Neutrophils % (A) 70 %; Platelet Count 421 k/uL (150-450); RBC 3.48 m/uL (4.30-5.90); RDW 16.3 % (11.5-15.5); WBC 6.2 k/uL (3.8-10.6)
--- NOTE | 2018-11-14 10:52 | XR ---
EXAMINATION TYPE: XR abdomen acute w cxr , 3 VIEWS DATE OF EXAM ORDERED: 11/14/2018 HISTORY: Pain. COMPARISON: None. FINDINGS: The lungs are overinflated. There are calcified granulomas throughout the lungs. There is no pneumonia or edema. The heart is not enlarged. There is an S-shaped scoliosis convex to the left in the thoracic region and to the right lumbar eun on. The abdominal gas pattern is within normal limits. There is no evidence of obstruction or free air. T here are phleboliths in the pelvis. IMPRESSION: 1. COPD. 2. OLD GRANULOMATOUS CHANGE. 3. NO ACUTE INTRA-ABDOMINAL ABNORMALITY.
[2018-11-14 12:02] VITALS: BP 138/81; PULSE 85; RESP 16; TEMP 97.5
== END 2018-11-14 12:01 | disposition home or self-care (01) ==
LOC: EC 09:11
DX: K94.09 Other complications of colostomy (principal); F17.200 Nicotine dependence, unspecified, uncomplicated; Z88.8 Allergy status to other drugs, medicaments and biological substances
CPT/HCPCS: 36415; 74022; 80053; 83690; 83735; 85025; 99283

== ENCOUNTER → 2019-04-07 | Outpatient (CLI) | payer MEDICARE ==
[2019-04-07 16:18] LABS: African American GFR (CKD) >90 (>60 ml/min/1.73 sqM); Blood Urea Nitrogen 11 mg/dL (9-20); Non-African American GFR(CKD) 86 (>60 ml/min/1.73 sqM)
--- NOTE | 2019-04-08 08:08 | CT ---
EXAMINATION TYPE: CT abdomen pelvis w con DATE OF EXAM: 04/07/2019 COMPARISON: 09/12/2018 and 10/18/2018 HISTORY: PT recently had colostomy bag placement. Mentions hx of preferation/inflamation for insertio n. Diverticulitis CT DLP: 329.60 mGycm CONTRAST: CT scan of the abdomen and pelvis is performed with Oral Contrast and with IV Contrast, patient injec claudia with 100 mL of Isovue 300. FINDINGS: LUNG BASES-: No visible nodule. No infiltrate. Emphysematous changes noted at the lung bases. Remote granulomatous disease noted LIVER/GB: No calcified gallstones. No space occupying hepatic lesion. Biliary tree is of normal ca liber. PANCREAS: No inflammation. No distinct mass. SPLEEN: No splenic enlargement. No lesion seen. ADRENALS: No nodule. No thickening. KIDNEYS/BLADDER: No hydronephrosis. No nephrolithiasis. No distinct renal mass. Urinary bladder g rossly unremarkable. BOWEL: Diverting left upper quadrant colostomy redemonstrated. There is no evidence for bowel obstruc tion. No evidence for pneumoperitoneum. Moderate fecal stasis right hemicolon. Redemonstrated is air collection adjacent to the posterior wall of the urinary bladder measuring 2.4 x 2.0 cm compatible wi th the previous history of colovesical fistula. Several foci of air are noted within the urinary blad yoav. Mild urinary bladder wall thickening persists. GENITAL ORGANS: No gross abnormality. LYMPH NODES: No greater than 1cm abdominal or pelvic lymph nodes are appreciated. AORTA: No significant abnormality. OSSEOUS STRUCTURES: No significant abnormality is seen. OTHER: No significant additional abnormality is seen. IMPRESSION: 1. Redemonstrated is air collection adjacent to the posterior wall of the urinary bladder measuring 2 .4 x 2.0 cm compatible with the previous history of colovesical fistula. Several foci of air are note d within the urinary bladder. Mild urinary bladder wall thickening persists. 2. Diverting colostomy redemonstrated left upper quadrant.
== END | disposition home or self-care (01) ==
LOC: RADCTMAIN 15:18
PROVIDERS: ATTEND Surgery
DX: K57.32 Diverticulitis of large intestine without perforation or abscess without bleeding (principal); Z93.3 Colostomy status
CPT/HCPCS: 82565; 84520; 74177; 36415; Q9967

== ENCOUNTER → 2020-08-27 | Outpatient (CLI) | payer MEDICARE ==
[2020-08-27 16:15] LABS: HCT 41.6 % (39.0-53.0); MCH 33.4 pg (25.0-35.0); MCHC 31.3 g/dL (31.0-37.0); MCV 106.5 fL (80.0-100.0); Macrocytosis Moderate; Mean Platelet Volume 6.7; Platelet Count 367 k/uL (150-450); RDW 14.4 % (11.5-15.5); WBC 6.9 k/uL (3.8-10.6)
[2020-08-27 16:22] LABS: Potassium 5.5 mmol/L (3.5-5.1)
== END | disposition home or self-care (01) ==
LOC: LABPAT 15:15
PROVIDERS: ATTEND Surgery
DX: Z01.818 Encounter for other preprocedural examination (principal); K57.33 Diverticulitis of large intestine without perforation or abscess with bleeding; R00.1 Bradycardia, unspecified
CPT/HCPCS: 36415; 80051; 85027; 93005

== ENCOUNTER 2020-08-30 08:41 | Day surgery (SDC) | payer MEDICARE ==
[2020-08-28 15:27] VITALS: BMI 16.9
[2020-08-30 09:41] VITALS: TEMP 98.9
[2020-08-30] MEDS ORDERED: LACTATED RINGERS 1,000 ML IV ONE (09:45)
[2020-08-30] MEDS ORDERED: LIDOCAINE 1% (10MG/ML) FOR IV START INTRADERMA ONE (09:45)
[2020-08-30] MEDS ORDERED: PROPOFOL 10 MG/ML 20 ML VIAL IV ONE (10:12)
--- NOTE | 2020-08-30 10:15 | P.GSHP ---
History of Present Illness H&P Date: 08/30/20 Chief Complaint: History of diverticulitis This a 75-year-old male who was previously history of diverticulitis with colostomy. Patient presents today for colonoscopy. He is undergoing reversal of colostomy tomorrow. Past Medical History Past Medical History: COPD Additional Past Medical History / Comment(s): Severe anemia, previous pneumonia involving the left lower lobe for which he was hospitalized at [facility] in 2016, chronic smoker, alcoholism, malnutrition,had perforated bowel r/t diverticulitis History of Any Multi-Drug Resistant Organisms: None Reported Past Surgical History: Tonsillectomy Additional Past Surgical History / Comment(s): bowel resection, colostomy Past Anesthesia/Blood Transfusion Reactions: No Reported Reaction Additional Past Anesthesia/Blood Transfusion Reaction / Comment(s): had received 2 units pRBCs 2019 w/out problems Smoking Status: Current every day smoker - Past Family History Mother Additional Family Medical History / Comment(s): from cirrhosis of liver Father Family Medical History: Myocardial Infarction ([place]) Additional Family Medical History / Comment(s): from [place] Medications and Allergies Home Medications Medication Instructions Recorded Confirmed Type Acetaminophen [Tylenol] 325 mg PO Q4H PRN 08/28/20 08/28/20 History Aspirin [Aspirin EC] 650 mg PO QID PRN 08/28/20 08/28/20 History Fluticasone/Umeclidin/Vilanter 1 inhalation INHALATION QAM 08/28/20 08/28/20 History [Trelegy Ellipta 100-62.5-25] Multivitamins, Thera [Multivitamin 1 tab PO DAILY 08/28/20 08/28/20 History (formulary)] Allergies Allergy/AdvReac Type Severity Reaction Status Date / Time No Known Allergies Allergy Verified 08/30/20 09:40 Surgical - Exam Vital Signs Temp Pulse Resp BP Pulse Ox 98.9 F 62 16 162/93 98 08/30/20 09:33 08/30/20 09:33 08/30/20 09:33 08/30/20 09:33 08/30/20 09:33 - General well nourished, no distress - Eyes PERRL - ENT normal pinna - Neck no masses - Respiratory normal expansion - Cardiovascular Rhythm: regular - Abdomen Abdomen: soft, non tender Assessment and Plan Assessment: History of diverticulitis. We'll perform colonoscopy
--- NOTE | 2020-08-30 10:28 | P.OP ---
Date of Procedure: 08/30/20 Preoperative Diagnosis: Diverticulitis Postoperative Diagnosis: Diverticulitis Procedure(s) Performed: Colonoscopy Anesthesia: MAC Surgeon: Trevon Francis Pathology: none sent Condition: stable Disposition: PACU Description of Procedure: The patient's placed on the endoscopy table in the lateral position. Digital rectal exam was performed. There is a large amount of stool in rectal vault. This was mainly disimpacted. The colonoscope was then placed patient anus and passed throughout the rectal stump. There is no abnormalities seen. The view was limited due to the large amount of stool. Next patient was rotated in his back. The colostomy was entered with the colonoscope. The ileocecal valve visualized. The cecum ascending and transverse colon appeared normal. In the descending colon there is diverticular changes. Scope was withdrawn for patient.
[2020-08-30] MEDS ORDERED: NA PHOS,M-B/NA PHOS,DI-BA 133 ML ENEMA RECTAL ONE (10:33)
[2020-08-30 11:29] VITALS: BP 132/76; PULSE 88; RESP 16
== END 2020-08-30 11:52 | disposition home or self-care (01) ==
LOC: ORWHC2ENDO 08:41
PROVIDERS: ATTEND Surgery
DX: K57.92 Diverticulitis of intestine, part unspecified, without perforation or abscess without bleeding (principal); Z93.3 Colostomy status; J44.9 Chronic obstructive pulmonary disease, unspecified; F17.210 Nicotine dependence, cigarettes, uncomplicated; Z79.82 Long term (current) use of aspirin; Z79.899 Other long term (current) drug therapy; Z84.89 Family history of other specified conditions; Z82.49 Family history of ischemic heart disease and other diseases of the circulatory system; Z90.49 Acquired absence of other specified parts of digestive tract
CPT/HCPCS: 44388; J2704; 45378

== ENCOUNTER 2020-08-31 07:57 | Inpatient (IN) | payer MEDICARE ==
[~2020-08-31 07:57] MED LIST: ACETAMINOPHEN TAB 500 MG TAB PO PRN; DEXAMETHASONE SOD PHOSPHATE 4 MG/ML 1 ML VIAL IV ONE; HEPARIN SODIUM,PORCINE/PF 5,000 UNIT/0.5 ML SYRINGE SQ PRN; LACTATED RINGERS 1,000 ML IV SCH; LIDOCAINE 1% (10MG/ML) FOR IV START INTRADERMA PRN; ONDANSETRON 4 MG/2 ML VIAL IVP ONE; metroNIDAZOLE-NS PMX 500 MG in SALINE 1 100ML.BAG IVPB PRN
[2020-08-31 09:04] LABS: Prothrombin Time 10.6 sec (9.0-12.0)
--- NOTE | 2020-08-31 10:18 | P.GSHP ---
History of Present Illness H&P Date: 08/31/20 Chief Complaint: history of perforated diverticulitis this a 75-year-old male who presents today for reversal of colostomy. Patient has a. History of perforated diverticulitis. Past Medical History Past Medical History: COPD Additional Past Medical History / Comment(s): Severe anemia, previous pneumonia involving the left lower lobe for which he was hospitalized at [facility] in 2016, chronic smoker, alcoholism, malnutrition,had perforated bowel r/t diverticulitis History of Any Multi-Drug Resistant Organisms: None Reported Past Surgical History: Tonsillectomy Additional Past Surgical History / Comment(s): bowel resection, colostomy Past Anesthesia/Blood Transfusion Reactions: No Reported Reaction Additional Past Anesthesia/Blood Transfusion Reaction / Comment(s): had received 2 units pRBCs 2019 w/out problems Smoking Status: Current every day smoker - Past Family History Mother Family Medical History: Liver Disease Additional Family Medical History / Comment(s): from cirrhosis of liver Father Family Medical History: Myocardial Infarction ([place]) Additional Family Medical History / Comment(s): from [place] Medications and Allergies Home Medications Medication Instructions Recorded Confirmed Type Acetaminophen [Tylenol] 325 mg PO Q4H PRN 08/28/20 08/31/20 History Aspirin [Aspirin EC] 650 mg PO QID PRN 08/28/20 08/28/20 History Fluticasone/Umeclidin/Vilanter 1 inhalation INHALATION QAM 08/28/20 08/31/20 History [Trelegy Ellipta 100-62.5-25] Multivitamins, Thera [Multivitamin 1 tab PO DAILY 08/28/20 08/28/20 History (formulary)] Allergies Allergy/AdvReac Type Severity Reaction Status Date / Time No Known Allergies Allergy Verified 08/31/20 08:29 Surgical - Exam Vital Signs Temp Pulse Resp BP Pulse Ox 97.2 F L 95 16 169/83 97 08/31/20 08:28 08/31/20 08:28 08/31/20 08:28 08/31/20 08:28 08/31/20 08:28 - General well developed, well nourished, no distress - Eyes PERRL - ENT normal pinna - Neck no masses - Respiratory normal expansion - Cardiovascular Rhythm: regular - Abdomen Abdomen: soft, non tender Results - Labs 08/31/20 08:36 Diabetes panel 08/31/20 Range/Units 08:36 Potassium 4.1 (3.5-5.1) mmol/L Pituitary panel 08/31/20 Range/Units 08:36 Potassium 4.1 (3.5-5.1) mmol/L Adrenal panel 08/31/20 Range/Units 08:36 Potassium 4.1 (3.5-5.1) mmol/L Assessment and Plan Assessment: history of perforated diverticula is. We'll perperform reversal colostomy. Pa tient aware the risk of possiblerecurrent colostomy, bleeding and wound infection.
[2020-08-31] MEDS ORDERED: GLYCOPYRROLATE 0.2 MG/ML 2 ML VIAL ONE (10:50)
[2020-08-31] MEDS ORDERED: NEOSTIGMINE 1 MG/ML 10 ML VIAL ONE (10:50)
[2020-08-31] MEDS ORDERED: METOPROLOL TARTRATE 5 MG/5 ML VIAL IVP ONE (10:50)
[2020-08-31] MEDS ORDERED: KETAMINE 10 MG/ML 20 ML VIAL ONE (10:50)
[2020-08-31] MEDS ORDERED: ePHEDrine SULFATE/0.9% NACL/PF 50 MG/5 ML SYRINGE IV ONE ×2 (10:50)
[2020-08-31] MEDS ORDERED: LIDOCAINE 1% INJ 10MG/ML (20 ML MDV) ONE (10:50)
[2020-08-31] MEDS ORDERED: PROPOFOL 10 MG/ML 20 ML VIAL IV ONE (10:50)
[2020-08-31] MEDS ORDERED: fentaNYL (PF) 50 MCG/ML 2 ML AMP ONE (10:50)
[2020-08-31] MEDS ORDERED: ROCURONIUM 10 MG/ML (5 ML VIAL) IV ONE (10:50)
[2020-08-31] MEDS ORDERED: MIDAZOLAM 2 MG/2 ML VIAL ONE (10:50)
[2020-08-31] MEDS ORDERED: LACTATED RINGERS 1,000 ML IV ONE (12:22)
[2020-08-31] MEDS ORDERED: ONDANSETRON 4 MG/2 ML VIAL IVP PRN (12:38)
[2020-08-31] MEDS ORDERED: BENZOCAINE/MENTHOL LOZENG 1 EACH LOZENGE MUCOUS MEM PRN (12:38)
[2020-08-31] MEDS ORDERED: METOCLOPRAMIDE 5 MG/ML 2 ML VIAL IVP PRN (12:38)
--- NOTE | 2020-08-31 12:38 | P.OP ---
Date of Procedure: 08/31/20 Preoperative Diagnosis: history of perforated diverticulitis Postoperative Diagnosis: history of perforated diverticulitis Procedure(s) Performed: reversal of colostomy Drainage of pelvic abscess Sigmoid colectomy Apappendectomy Anesthesia: JANNET Surgeon: Trevon Francis Estimated Blood Loss (ml): 50 Pathology: other (sigmoid colon, appendix) Condition: stable Disposition: floor Description of Procedure: the patient's placed on the operating table in supine position. He received general anesthesia. He was then placed in dorsolithotomy position. His abdomen was prepped and draped usual sterile fashion. The abdomen was entered through midline. The Bookwalter retractors placed a wound. The colostomy then transected fascia using the GI stapler. Next the sigmoid colon was evaluated. There appeared to be evidence of inflammatory changes sigmoid colon the colon was stuck on the lateral pelvic wall and the bladder.; Was freed using sharp and blunt dissection. The; was detached from the bladder using sharp blunt dissection. There was significant inflammatory changes. There was an abscess cavity entered as well. the appendix was involved into the inflammatory mass. An appendect The An appendectomy was performed. The base the appendix was ligated with 0 silk ties and the appendix was divided. The appendix was left with the sigmoid specimen. the mesentery was takentn down level rectum. At this point the mesentery the bowel was divided with the Enseal device and then the contour stapler using divided the rectum. Anvil for the 25 mm EEA stapler was placed into the proximal colon after pursestring was placed on the colon. The first was secured. The diet assistant then placed the EEA stapler patient's anus. The spike was driven through the anterior rectal wall. And then the anvil was connected. This stapler was then closed and fired. 2 intact tissue rings were withdrawn. The anastomosis checked under air insufflation. There is no incision any leakage. At this point the abdomen was irrigated. Bleeding seen. The fascia was closed with l ooped #1 PDS suture. Skin was closed mart. The colostomy was excised using left cautery the fascia was closed with #1 strep suture. Skin was closed mart. Patient top she will was sent to recovery in stable condition.
[2020-08-31] MEDS: HYDROmorphone 0.5 MG/0.5 ML SYRINGE IVP PRN ×2 (12:46→12:59)
[2020-08-31] MEDS ORDERED: hydrALAZINE HCL 20 MG/ML 1 ML VIAL IV ONE (13:10)
[2020-08-31] MEDS: D5-0.45% NACL WITH KCL 20MEQ/L 1,000 ML IV SCH ×2 (14:08→22:53)
[2020-08-31] MEDS ORDERED: MAGNESIUM CITRATE 296 ML BOTTLE PO ONE (14:34)
[2020-08-31] MEDS: HEPARIN SODIUM,PORCINE/PF 5,000 UNIT/0.5 ML SYRINGE SQ SCH ×2 (15:42→22:53)
[2020-08-31] MEDS: HYDROmorphone 1 MG/ML 1 ML SYRINGE IVP PRN (15:42)
[2020-08-31] MEDS ORDERED: IPRATROPIUM-ALBUTEROL 3 ML NEB INHALATION PRN (17:35)
[2020-08-31] MEDS ORDERED: THIAMINE 100 MG/ML 2 ML VIAL IM STA (17:36)
[2020-08-31] MEDS ORDERED: LORazepam 2 MG/ML INJ IV PRN ×3 (17:36)
[2020-08-31 18:20] LABS: ALT 14 U/L (4-49); AST 32 U/L (17-59); African American GFR (CKD) >90 (>60 ml/min/1.73 sqM); Albumin 4.1 g/dL (3.5-5.0); Albumin/Globulin Ratio 1.3; Alkaline Phosphatase 61 U/L (38-126); Anion Gap 13 mmol/L; Blood Urea Nitrogen 9 mg/dL (9-20); C Reactive Protein 6.2 mg/dL (<1.0); Calcium 9.7 mg/dL (8.4-10.2); Carbon Dioxide 24 mmol/L (22-30); Chloride 99 mmol/L (98-107); Globulin 3.1 g/dL; Glucose 85 mg/dL (74-99); Non-African American GFR(CKD) >90 (>60 ml/min/1.73 sqM); Sodium 136 mmol/L (137-145); Total Bilirubin 0.5 mg/dL (0.2-1.3); Total Protein 7.2 g/dL (6.3-8.2)
[2020-08-31] MEDS: IPRATROPIUM-ALBUTEROL 3 ML NEB INHALATION SCH (20:09)
[2020-08-31] MEDS: PANTOPRAZOLE 40 MG/10 ML VIAL IVP SCH (20:24)
[2020-08-31 20:53] LABS: Appearance,Urine Cloudy (Clear); Bacteria,Urine Occasional /hpf; Bilirubin,Urine Negative (Negative); Blood,Urine Small (Negative); Color,Urine Yellow; Glucose,Urine (UA) 3+ (Negative); Ketones,Urine 1+ (Negative); Leukocyte Esterase,Urine Large (Negative); Mucus,Urine Rare /hpf; Nitrite,Urine Positive (Negative); Protein,Urine Trace (Negative); RBC,Urine 4 /hpf (0-5); Specific Gravity,Urine 1.015 (1.001-1.035); Squamous Epithelial Cell,Urine <1 /hpf (0-4); Urobilinogen,Urine <2.0 mg/dL (<2.0); WBC,Urine 48 /hpf (0-5)
--- NOTE | 2020-08-31 23:12 | CONS ---
CONSULTATION DATE OF SERVICE: 08/31/2020 REASON FOR CONSULTATION: Advice regarding COPD and multiple medical issues, requested by Dr. Francis. HISTORY OF PRESENT ILLNESS: This 75-year-old gentleman with a past medical history of multiple medical problems including: COPD, history of anemia, tonsillectomy, being followed by Dr. Grewal in the outpatient setting also had previously ostomy dysfunction with constipation. Patient also had a UTI and colovesical fistula and diverting colostomy previously. The patient underwent reversal of colostomy and drainage of the pelvic abscess, sigmoid colectomy and appendectomy was done by Dr. Francis today. There appears to be some inflammatory changes involving the colon which was stuck to the lateral pelvic wall and bladder. There was some significant inflammatory changes and the appendix was involving inflammatory mass which was also removed. Patient being closely monitored at this time. There is no history of any fever, rigor or chills at this time. PAST MEDICAL HISTORY: History of COPD, history of severe anemia, history of a previous pneumonia, history of chronic nicotine dependence, history of colovesical fistula, history of diverticulitis. MEDICATIONS: Medications prior to admission include: Trilogy, Ellipta, Tylenol, aspirin, multivitamins. Doses reviewed. ALLERGIES: None. FAMILY HISTORY: History of liver disease, cirrhosis of liver. SOCIAL HISTORY: History of occasional alcohol intake. History of continued smoking. REVIEW OF SYSTEMS: ENT: No diminished vision. No diminished hearing. CARDIOVASCULAR: No angina. RESPIRATION: As mentioned earlier. GI as mentioned earlier. mentioned earlier. NERVOUS SYSTEM: No numbness or weakness. ALLERGY/IMMUNOLOGY: No asthma or hayfever. MUSCULOSKELETAL: As mentioned earlier. HEMATOLOGY/ONCOLOGY: No history of anemia. ENDOCRINE: No history of diabetes or hypothyroidism. CONSTITUTIONAL: As mentioned earlier. DERMATOLOGY: Negative. RHEUMATOLOGY: Negative. PSYCHIATRY: As mentioned earlier. PHYSICAL EXAMINATION: Alert and oriented times three. Pulse 82, blood pressure 127/70, respiration 20, temperature normal. Pulse ox 93% on room air. HEENT: Conjunctivae normal. Oral mucosa moist. NECK is no jugular venous distention. No carotid bruit. No lymph node enlargement. CARDIOVASCULAR system: S1, S2 muffled. RESPIRATORY: Breath sounds diminished in the bases. A few scattered rhonchi. No crackles. ABDOMEN: Soft. Status post surgery. LEGS: No edema. No swelling. NERVOUS SYSTEM: Higher functions as mentioned earlier. Moves all 4 limbs, no focal motor or sensory deficits. LYMPHATICS: No lymph nodes palpable in the neck, axillae or groin. SKIN: No ulcer, rashes or bleeding. JOINTS: No active deforming arthropathy. LABS: Reviewed. Preop labs are at this time: Hematology, hemoglobin is 13. Coags are normal. Previous D-dimer was elevated. The chemistry showing sodium 132. ASSESSMENT: 1. Status post reversal of colostomy, drainage of pelvic abscess, sigmoid colectomy and as well as appendectomy. 2. History of previous diverting colostomy for colovesical fistula. 3. History of ETOH. 4. Severe protein calorie malnutrition BMI of 16.4 present on admission. 5. History of chronic obstructive pulmonary disease. 6. History of severe anemia. 7. History of pneumonia. 8. History of nicotine dependence. 9. History of perforated bowel due to diverticulitis. 10.History of transfusion previously. 11.FULL CODE. RECOMMENDATIONS AND DISCUSSION: This 75-year-old gentleman who presented with multiple complex medical issues as mentioned, I would recommend continue the current medications, symptomatic treatment. Otherwise bronchodilators, incentive spirometry. Monitor electrolytes closely. Recommend await the biopsy reports. Recommend baseline labs as well. Incentive spirometry. DVT prophylaxis. Further recommendations to follow. A copy of this dictation is being forwarded to Dr. Timo Grewal who is the primary physician. YISSEL / LEYLAN: [id number] /
[2020-09-01] MEDS: HYDROmorphone 1 MG/ML 1 ML SYRINGE IVP PRN ×2 (05:47→08:57)
[2020-09-01] MEDS: D5-0.45% NACL WITH KCL 20MEQ/L 1,000 ML IV SCH ×2 (06:10→14:00)
[2020-09-01 06:32] LABS: Basophils % (A) 0 %; Eosinophils % (A) 0 %; HCT 38.1 % (39.0-53.0); HGB 12.5 gm/dL (13.0-17.5); Lymphocytes # (A) 0.6 k/uL (1.0-4.8); Lymphocytes % (A) 6 %; MCH 34.6 pg (25.0-35.0); MCHC 32.7 g/dL (31.0-37.0); MCV 105.9 fL (80.0-100.0); Macrocytosis Moderate; Mean Platelet Volume 6.7; Monocytes # (A) 0.6 k/uL (0-1.0); Monocytes % (A) 6 %; Neutrophils # (A) 8.4 k/uL (1.3-7.7); Neutrophils % (A) 86 %; Platelet Count 349 k/uL (150-450); RDW 13.5 % (11.5-15.5); WBC 9.7 k/uL (3.8-10.6)
[2020-09-01] MEDS: IPRATROPIUM-ALBUTEROL 3 ML NEB INHALATION SCH ×3 (08:05→19:06)
[2020-09-01] MEDS: THIAMINE 100 MG TAB PO SCH ×2 (08:32→17:39)
[2020-09-01] MEDS: PANTOPRAZOLE 40 MG/10 ML VIAL IVP SCH (08:32)
[2020-09-01] MEDS: HEPARIN SODIUM,PORCINE/PF 5,000 UNIT/0.5 ML SYRINGE SQ SCH ×3 (08:32→23:53)
--- NOTE | 2020-09-01 08:59 | P.PN ---
Subjective Progress Note Date: 09/01/20 Principal diagnosis: Colostomy reversal Patient doing fairly well today after yesterday's colostomy reversal. Good urine output. Labs looked good. Patient complaining of pain. No bowel function. Objective - Vital Signs Vital signs: Vital Signs Temp 98 F 09/01/20 05:34 Pulse 89 09/01/20 08:15 Resp 16 09/01/20 05:34 BP 137/77 09/01/20 05:34 Pulse Ox 97 09/01/20 05:34 Intake & Output 08/31/20 09/01/20 09/01/20 18:59 06:59 18:59 Intake Total 2160 1500 Output Total 425 1200 Balance 1735 300 Weight 52.5 kg Intake: IV 2160 Intake, IV Titration 1500 Amount D5-0.45% NaCl with KCl 1500 20Meq/l 1,000 ml @ 125 mls/hr IV .Q8H ON LICENSE OF [facility] Rx#: [id number] Output: Urine 400 1200 Uretheral (Benedict) 600 Estimated Blood Loss 25 Other: Voiding Method Indwelling Catheter - Exam Abdomen: Soft, nondistended, incision clean and dry - Labs CBC & Chem 7: 09/01/20 05:59 08/31/20 08:36 Labs: Abnormal Lab Results - Last 24 Hours (Table) 08/31/20 08/31/20 09/01/20 Range/Units 08:36 20:35 05:59 RBC 3.60 L (4.30-5.90) m/uL Hgb 12.5 L (13.0-17.5) gm/dL Hct 38.1 L (39.0-53.0) % MCV 105.9 H (80.0-100.0) fL Neutrophils # 8.4 H (1.3-7.7) k/uL Lymphocytes # 0.6 L (1.0-4.8) k/uL Sodium 136 L (137-145) mmol/L C-Reactive Protein 6.2 H (<1.0) mg/dL Urine Protein Trace H (Negative) Urine Glucose (UA) 3+ H (Negative) Urine Ketones 1+ H (Negative) Urine Blood Small H (Negative) Ur Leukocyte Esterase Large H (Negative) Urine WBC 48 H (0-5) /hpf Urine WBC Clumps Moderate H (None) /hpf Urine Bacteria Occasional H (None) /hpf Urine Mucus Rare H (None) /hpf Microbiology - Last 24 Hours (Table) 08/31/20 12:20 Gram Stain - Preliminary Abdomen Wound Culture - Preliminary 08/31/20 12:20 Anaerobic Culture - Preliminary Abdomen Assessment and Plan (1) Diverticulitis large intestine Narrative/Plan: Continue liquid diet only. Keep Benedict catheter in place. Add Toradol and N orco. Current Visit: No Status: Acute Code(s): K57.32 - DVTRCLI OF LG INT W/O PERFORATION OR ABSCESS W/O BLEEDING SNOMED Code(s): 6670899
[2020-09-01 10:08] VITALS: BMI 16.3
[2020-09-01] MEDS: KETOROLAC 15 MG/ML 1 ML VIAL IVP SCH ×3 (11:40→23:53)
[2020-09-01] MEDS: HYDROcodone/APAP 7.5-325MG 1 EACH TAB PO PRN (15:52)
[2020-09-01] MEDS: PIPERACILLIN-TAZOBACTAM 3.375 GM in SODIUM CHLORIDE 0.9% 100 ML IVPB SCH (15:53)
--- NOTE | 2020-09-01 20:34 | PN ---
PROGRESS NOTE DATE OF SERVICE: 09/01/2020 This 75-year-old gentleman who was admitted after colostomy reversal also was found to have some pelvic abscess and the patient also had appendix involved. The patient also had appendectomy. Patient started on broad spectrum IV antibiotics. The white count is 9.7 at this time. UA shows some evidence of UTI. Dr. Thakkar is following the patient closely. The patient is mildly confused. PAST MEDICAL HISTORY: Reviewed. REVIEW OF SYSTEMS: CARDIOVASCULAR system. No angina. RESPIRATION as mentioned earlier. GI: As mentioned earlier. : No dysuria. NERVOUS SYSTEM: No numbness, weakness. CURRENT MEDICATIONS: Reviewed and include: [place], DuoNeb, Cepacol, Heparin and Dilaudid, Toradol. Ativan, Reglan. PHYSICAL EXAMINATION: Patient is alert and oriented times three. Pulse 82, blood pressure 144/78, respirations 17, temperature 98.4, pulse ox 98% on room air. HEENT: Conjunctivae normal. NECK: No JVD. CARDIOVASCULAR: S1, S2 muffled. RESPIRATORY: Breath sounds diminished in the bases. A few scattered rhonchi. ABDOMEN: Soft, mild diffuse discomfort. No guarding. No rigidity. Postoperative discomfort. LEGS are no edema. No swelling. NERVOUS SYSTEM: No focal deficits. LABS: WBC 9, hemoglobin 12.5. Other labs: Sodium 136. ASSESSMENT: 1. Status post reversal of colostomy and drainage of the pelvic abscess and sigmoid colectomy and as well as appendectomy. 2. History of previous diverting colostomy for colovesical fistula. 3. History of ETOH. 4. Severe protein calorie malnutrition with BMI 16.4, present on admission. 5. Acute urinary tract infection present on admission. 6. History of chronic obstructive pulmonary disease. 7. History of severe anemia. 8. History of pneumonia. 9. History of nicotine dependence. 10.History of perforated bowel due to diverticulitis. 11.History of transfusion previously. 12.FULL CODE. RECOMMENDATIONS AND DISCUSSION: Continue current medications, management. Symptomatic treatment. Empiric antibiotics. Otherwise, we will obtain cultures as well. The wound culture showed gram-negative bacilli. We will continue to monitor. Repeat labs will be ordered. Patient has normal white count and closely follow with surgery. DVT prophylaxis. Further recommendations to follow. MMODL / IJN: [id number] /
[2020-09-02] MEDS: HYDROcodone/APAP 7.5-325MG 1 EACH TAB PO PRN ×4 (00:19→22:36)
[2020-09-02] MEDS: PIPERACILLIN-TAZOBACTAM 3.375 GM in SODIUM CHLORIDE 0.9% 100 ML IVPB SCH ×4 (00:20→23:59)
[2020-09-02] MEDS: KETOROLAC 15 MG/ML 1 ML VIAL IVP SCH ×3 (05:37→17:34)
[2020-09-02] MEDS: D5-0.45% NACL WITH KCL 20MEQ/L 1,000 ML IV SCH ×4 (05:49→22:39)
[2020-09-02 06:08] LABS: Basophils % (A) 0 %; Eosinophils # (A) 0.1 k/uL (0-0.7); Eosinophils % (A) 1 %; HGB 11.1 gm/dL (13.0-17.5); Lymphocytes # (A) 0.6 k/uL (1.0-4.8); Lymphocytes % (A) 7 %; MCH 35.5 pg (25.0-35.0); MCHC 33.7 g/dL (31.0-37.0); MCV 105.5 fL (80.0-100.0); Macrocytosis Slight; Mean Platelet Volume 6.9; Monocytes # (A) 0.5 k/uL (0-1.0); Monocytes % (A) 5 %; Neutrophils # (A) 7.3 k/uL (1.3-7.7); Neutrophils % (A) 85 %; Platelet Count 290 k/uL (150-450); RBC 3.13 m/uL (4.30-5.90); RDW 13.4 % (11.5-15.5); WBC 8.5 k/uL (3.8-10.6)
[2020-09-02] MEDS: IPRATROPIUM-ALBUTEROL 3 ML NEB INHALATION SCH ×3 (08:25→21:44)
[2020-09-02] MEDS: PANTOPRAZOLE 40 MG TABLET PO SCH (09:07)
[2020-09-02] MEDS: HEPARIN SODIUM,PORCINE/PF 5,000 UNIT/0.5 ML SYRINGE SQ SCH ×3 (09:07→22:41)
[2020-09-02] MEDS: THIAMINE 100 MG TAB PO SCH ×2 (09:07→17:34)
[2020-09-02 10:05] LABS: African American GFR (CKD) 108.5 (60.0-200.0); Anion Gap 4.5 mmol/L (4.00-12.00); BUN/Creat Ratio 8.57 Ratio (12.00-20.00); Calcium 8.4 mg/dL (8.7-10.3); Carbon Dioxide 28.5 mmol/L (21.6-31.8); Non-African American GFR(CKD) 93.6 (60.0-200.0); Potassium 5.2 mmol/L (3.5-5.5)
--- NOTE | 2020-09-02 11:35 | P.PN ---
Subjective Progress Note Date: 09/02/20 Principal diagnosis: Colostomy reversal Patient has no new complaints. Tolerating clears. No flatus or bowel movement. Pain is improved. Objective - Vital Signs Vital signs: Vital Signs Temp 98.5 F 09/02/20 04:15 Pulse 86 09/02/20 08:38 Resp 18 09/02/20 04:15 BP 144/75 09/02/20 04:15 Pulse Ox 95 09/02/20 04:15 Intake & Output 09/01/20 09/02/20 09/02/20 18:59 06:59 18:59 Intake Total 1600 Output Total 900 2700 Balance -900 -1100 Weight 52.5 kg Intake: Intake, IV Titration 1600 Amount D5-0.45% NaCl with KCl 1500 20Meq/l 1,000 ml @ 125 mls/hr IV .Q8H [facility] Rx#: [id number] Piperacillin-Tazobactam 3 100 .375 gm In Sodium Chloride 0.9% 100 ml @ 25 mls/hr IVPB Q8HR [facility] Rx# :[id number] Output: Urine 900 2700 Uretheral (Benedict) 1350 Other: Voiding Method Indwelling Catheter Indwelling Catheter Indwelling Catheter - Exam Abdomen: Soft, nondistended, dressing clean and dry, mild tenderness - Labs CBC & Chem 7: 09/02/20 05:07 09/02/20 05:07 Labs: Abnormal Lab Results - Last 24 Hours (Table) 09/02/20 09/02/20 Range/Units 05:07 05:07 RBC 3.13 L (4.30-5.90) m/uL Hgb 11.1 L (13.0-17.5) gm/dL Hct 33.0 L (39.0-53.0) % MCV 105.5 H (80.0-100.0) fL MCH 35.5 H (25.0-35.0) pg Lymphocytes # 0.6 L (1.0-4.8) k/uL Sodium 133 L (135-145) mmol/L BUN 6.0 L (9.0-27.0) mg/dL BUN/Creatinine Ratio 8.57 L (12.00-20.00) Ratio Glucose 113 H (70-110) mg/dL Calcium 8.4 L (8.7-10.3) mg/dL Microbiology - Last 24 Hours (Table) 08/31/20 12:20 Gram Stain - Preliminary Abdomen Wound Culture - Preliminary Gram Neg Bacilli Gram Neg Bacilli#2 Assessment and Plan (1) Diverticulitis large intestine Narrative/Plan: Continue clear liquids. Ambulate. Keep Benedict catheter in place. Current Visit: No Status: Acute Code(s): K57.32 - DVTRCLI OF LG INT W/O PERFORATION OR ABSCESS W/O BLEEDING SNOMED Code(s): 6493343
--- NOTE | 2020-09-02 17:48 | PN ---
PROGRESS NOTE DATE OF SERVICE: 09/02/2020 This 75-year-old gentleman who was admitted with reversal of colostomy, also had an abscess which was drained. No chest pain. No palpitations. No fever. The cultures came back positive with Escherichia coli, 1 and 2 and Proteus which was poly sensitive. Patient on broad spectrum IV antibiotics. No chest pain. No palpitations. No fever. PHYSICAL EXAMINATION: Alert and oriented x3. Pulse 79, blood pressure 109/62, temperature 98.2, pulse ox 98% on room air. HEENT: Conjunctivae normal. Oral mucosa moist. NECK: No jugular venous distention. No lymph node enlargement. CARDIOVASCULAR: S1, S2, muffled. No S3, no S4, RESPIRATORY: Diminished breath sounds at the bases. No rhonchi, no crackles. ABDOMEN: Soft, nontender. Status post surgery. LEGS: No edema, no swelling. NERVOUS SYSTEM: No focal deficits. LABS: WBC 8.2, hemoglobin 11.1, sodium is 133, UA noted. ASSESSMENT: 1. ( ) Escherichia coli and Proteus species. 2. Status post reversal of colostomy and drainage of the pelvic abscess and sigmoid colectomy and as well as appendectomy. 3. History of previous diverting colostomy for colovesical fistula. 4. History of ETOH. 5. Severe protein calorie malnutrition with body mass index of 16.4, present on admission. 6. Acute urinary tract infection, present on admission. 7. History of chronic obstructive pulmonary disease. 8. History of severe anemia. 9. History of pneumonia. 10.History of nicotine dependence. 11.History of perforated bowel due to diverticulitis. 12.History of transfusion previously. 13.FULL CODE. RECOMMENDATIONS AND DISCUSSION: Recommend to continue current management and symptomatic treatment. I would also recommend consult Dr. Weiner for continued followup of the intraabdominal abscess. MMODL / IJN: [id number] /
[2020-09-03] MEDS: D5-0.45% NACL WITH KCL 20MEQ/L 1,000 ML IV SCH ×2 (05:18→14:58)
[2020-09-03] MEDS: KETOROLAC 15 MG/ML 1 ML VIAL IVP SCH ×4 (05:19→17:58)
[2020-09-03] MEDS: IPRATROPIUM-ALBUTEROL 3 ML NEB INHALATION SCH ×3 (07:30→20:23)
[2020-09-03] MEDS: PIPERACILLIN-TAZOBACTAM 3.375 GM in SODIUM CHLORIDE 0.9% 100 ML IVPB SCH ×2 (08:32→16:05)
[2020-09-03] MEDS: HEPARIN SODIUM,PORCINE/PF 5,000 UNIT/0.5 ML SYRINGE SQ SCH ×2 (08:32→16:04)
[2020-09-03] MEDS: PANTOPRAZOLE 40 MG TABLET PO SCH (08:32)
[2020-09-03] MEDS: THIAMINE 100 MG TAB PO SCH ×2 (08:32→16:04)
[2020-09-03] MEDS: HYDROcodone/APAP 7.5-325MG 1 EACH TAB PO PRN ×3 (08:34→21:25)
--- NOTE | 2020-09-03 08:55 | CONS ---
CONSULTATION DATE OF SERVICE: 09/02/2020 REASON FOR CONSULTATION: Intraabdominal abscess. HISTORY OF PRESENT ILLNESS: The patient is a 75-year-old male with a past medical history significant for perforated diverticulitis requiring diverting colostomy that was about 2 years ago. The patient mentioned he was weak to undergo reversal of his colostomy. The patient subsequently did have improvement in his clinical condition. The patient was electively admitted to the hospital on 08/31/2020 for reversal of the colostomy. The patient was noticed to have evidence of an abdominal abscess that has been drained. The patient has been treated with Zosyn. Infectious Disease was consulted today for management of his antibiotic therapy. The patient currently denies any fever or any chills. The patient mentioned feeling slightly nauseated after he ate his dinner. Today, he is complaining of some lower abdominal pain, more of a dull aching, 3 to 4/10, no radiation. Denies having any diarrhea. The patient denies any chest pain, shortness of breath or cough. On admission to the hospital, the patient has been afebrile and no fever has been recorded. Subsequently the patient did have a normal white count and normal creatinine. Abdominal culture now showing E coli and Proteus mirabilis. Multiple cultures are pending. The patient is currently being treated with Zosyn. REVIEW OF SYSTEMS: Positive points have been mentioned in HPI. Rest of systems are negative. PAST MEDICAL HISTORY: Perforated diverticulitis, anemia, COPD. PAST SURGICAL HISTORY: Tonsillectomy, bowel resection and colostomy. SOCIAL HISTORY: Current everyday smoker. FAMILY HISTORY: Mother history of liver disease. Father history of OR. ALLERGIES: No known drug allergies. MEDICATIONS: The patient is currently on vitamin B1. He is on Zosyn, Protonix, Zofran, Reglan, Ativan, Toradol, Dilaudid, heparin, Cepacol lozenges, DuoNeb and [place]. PHYSICAL EXAMINATION: VITAL SIGNS: Blood pressure 137/73 with a pulse of 73, temperature is 97.8, he is 93% on room air. GENERAL DESCRIPTION: Patient is an elderly male lying in bed in no distress. No tachypnea or accessory muscles of respiration use. HEENT: Examination shows pallor, no scleral icterus. Oral mucous membrane is dry. NECK: Trachea central, no thyromegaly. LUNGS: Unlabored breathing, clear to auscultation anteriorly. No wheeze or crackle. HEART: S1-S2, regular rate and rhythm. ABDOMEN: Soft, mildly tender. No guarding or rigidity. EXTREMITIES: No edema of the feet. SKIN: No rash or mass palpable. NEUROLOGICAL: Patient is awake, alert, oriented times two. Mood and affect normal. LAB: Hemoglobin 11.4, white count 8, 0.7. Abdominal culture with . DIAGNOSTIC IMPRESSION: Patient with abdominal abscess from with a history of perforated diverticulitis in this patient who is status post reversal of his colostomy and drainage of the abscess which did show E coli and Proteus mirabilis. PLAN: 1. Patient to continue Zosyn q.8 hours while awaiting for culture to finalize. 2. . We will follow on clinical condition and culture to further adjust medication if needed. Thank you for this consultation. Will follow this patient along with you. MMLILLIANL / IJN: [id number] /
--- NOTE | 2020-09-03 14:18 | P.PN ---
Subjective Progress Note Date: 09/03/20 CHIEF COMPLAINT: History of perforated diverticulitis HISTORY OF PRESENT ILLNESS: Patient is status post reversal of colostomy, drainage pelvic abscess, sigmoid colectomy and appendectomy. Postop day #3. Patient is sitting up in bed comfortably. He denies any bowel movement or flatus. Denies any nausea or vomiting. He reports that his pain is controlled. His culture results had shown E. coli and proteus mirabilis. Followed by infectious disease. He is currently on a clear liquid diet. Afebrile. WBC 8.5 PHYSICAL EXAM: VITAL SIGNS: Reviewed. GENERAL: Well-developed in no acute distress. HEENT: No sclera icterus. Extraocular movements grossly intact. Moist buccal mucosa. Head is atraumatic, normocephalic. ABDOMEN: Soft. Nondistended. Nontender. Incision site is clean dry and intact NEUROLOGIC: Alert and oriented. Cranial nerves II through XII grossly intact. ASSESSMENT: 1. History of perforated diverticulitis and pelvic abscess status post reversal of colostomy, drainage of pelvic abscess, sigmoid colectomy and appendectomy PLAN: -Continue antibiotics per ID -Continue clear liquid diet -Continue Benedict catheter -Consult PT OT GI prophylaxis Protonix and DVT prophylaxis subcu heparin Physician Cable Systems Installer note has been reviewed by physician. Signing provider agrees with the documented findings, assessment, and plan of care. Objective - Vital Signs Vital signs: Vital Signs Temp 98.0 F 09/03/20 11:18 Pulse 68 09/03/20 11:51 Resp 16 09/03/20 11:51 BP 169/72 09/03/20 11:18 Pulse Ox 95 09/03/20 11:18 Intake & Output 09/02/20 09/03/20 09/03/20 18:59 06:59 18:59 Intake Total 1500 1450 Output Total 2200 2650 1500 Balance -700 -1200 -1500 Intake: Intake, IV Titration 1500 1450 Amount D5-0.45% NaCl with KCl 1500 1250 20Meq/l 1,000 ml @ 125 mls/hr IV .Q8H [facility] Rx#: [id number] Piperacillin-Tazobactam 3 200 .375 gm In Sodium Chloride 0.9% 100 ml @ 25 mls/hr IVPB Q8HR [facility] Rx# :[id number] Output: Urine 2200 2650 1500 Other: Voiding Method Indwelling Catheter Indwelling Catheter Indwelling Catheter - Labs CBC & Chem 7: 09/02/20 05:07 09/02/20 05:07 Labs: Microbiology - Last 24 Hours (Table) 08/31/20 12:20 Anaerobic Culture - Preliminary Abdomen 08/31/20 12:20 Gram Stain - Final Abdomen Wound Culture - Final Escherichia coli Escherichia coli#2 Proteus mirabilis 09/01/20 21:16 Blood Culture - Preliminary Blood No Growth after 24 hours 09/02/20 14:17 Urine Culture - Preliminary Urine,Catheterized
[2020-09-03] MEDS: SODIUM CHLORIDE 0.9% 1,000 ML IV SCH (16:05)
--- NOTE | 2020-09-03 16:16 | PN ---
PROGRESS NOTE DATE OF SERVICE: 09/03/2020 This 75-year-old gentleman who was admitted with reversal of colostomy also had a pelvic abscess. The wound cultures grew E coli and Proteus mirabilis which is resistant . No chest pain. No palpitations. No fever. PHYSICAL EXAMINATION: Alert and oriented x3. Pulse 63, blood pressure 116/70, respirations 16, temperature 98 degrees, pulse ox 94% on room air. HEENT: Conjunctivae normal. NECK: No jugular venous distention. CARDIOVASCULAR SYSTEM: S1, S2 muffled. RESPIRATORY SYSTEM: Breath sounds diminished at the bases. No rhonchi. No crackles. ABDOMEN: Soft. Status post surgery. LEGS: No edema. No swelling. NERVOUS SYSTEM: No focal deficit. LABS: WBC 8.2, hemoglobin 11.1. Sodium 133. UA noted. Cultures noted. ASSESSMENT: 1. Status post reversal of colostomy and drainage of the pelvic abscess, sigmoid colectomy as well as appendectomy. 2. Wound culture showing Escherichia coli as well as Proteus mirabilis. 3. History of previous diverting colostomy for colovesical fistula. 4. History of ETOH. 5. Possible acute urinary tract infection. 6. Severe protein-calorie malnutrition with body mass index 16.4, present on admission. 7. Acute urinary tract infection, present on admission. 8. History of chronic obstructive pulmonary disease. 9. Severe anemia. 10.History of pneumonia. 11.History of nicotine dependence. 12.History of perforated bowel due to diverticulitis. 13.History of transfusion previously. 14.FULL CODE. RECOMMENDATIONS AND DISCUSSION: I recommend to continue current medications, continue with the monitoring, symptomatic treatment. Otherwise at this time I recommend repeat labs. Continue the antibiotics. Closely follow with Infectious Disease and Surgery. Further recommendations to follow. MMODL / IJN: [id number] / MTDD
--- NOTE | 2020-09-03 23:18 | PN ---
PROGRESS NOTE DATE OF SERVICE: 09/03/2020 REASON FOR FOLLOWUP: Abdominal abscess. INTERVAL HISTORY: Patient is currently afebrile. The patient is breathing comfortably. Abdominal pain is currently controlled. The patient denies any chest pain, shortness of breath or cough. No nausea, vomiting. No bowel movement. PHYSICAL EXAMINATION: Blood pressure 120/73 with a pulse of 69, temperature 97.9. He is 92% on room air. General description is an elderly male lying in bed in no distress. Respiratory system: Unlabored breathing, clear to auscultation anteriorly. Heart S1, S2. Regular rate. ABDOMEN: Soft, no tenderness. Extremities are no edema of feet. LABS: Hemoglobin is 11.1, white count 8.5, BUN of 6, creatinine 0.7. DIAGNOSTIC IMPRESSION AND PLAN: Patient with abdominal abscess in this patient status post colostomy reversal. Cultures with E coli proteus. switched to Zosyn to continue. Transition to oral vanco on discharge. Continue supportive care. MMODL / IJN: [id number] /
[2020-09-04] MEDS: HEPARIN SODIUM,PORCINE/PF 5,000 UNIT/0.5 ML SYRINGE SQ SCH ×4 (00:17→23:48)
[2020-09-04] MEDS: KETOROLAC 15 MG/ML 1 ML VIAL IVP SCH ×5 (00:17→23:46)
[2020-09-04] MEDS: PIPERACILLIN-TAZOBACTAM 3.375 GM in SODIUM CHLORIDE 0.9% 100 ML IVPB SCH ×4 (00:19→23:48)
[2020-09-04] MEDS: HYDROcodone/APAP 7.5-325MG 1 EACH TAB PO PRN ×3 (05:29→21:54)
[2020-09-04 06:40] LABS: Basophils % (A) 1 %; Eosinophils # (A) 0.4 k/uL (0-0.7); Eosinophils % (A) 6 %; Lymphocytes # (A) 0.5 k/uL (1.0-4.8); Lymphocytes % (A) 8 %; MCH 35.1 pg (25.0-35.0); MCHC 33.3 g/dL (31.0-37.0); MCV 105.4 fL (80.0-100.0); Macrocytosis Slight; Mean Platelet Volume 6.9; Monocytes # (A) 0.5 k/uL (0-1.0); Monocytes % (A) 7 %; Neutrophils # (A) 5.1 k/uL (1.3-7.7); Neutrophils % (A) 76 %; Platelet Count 374 k/uL (150-450); RBC 3.13 m/uL (4.30-5.90); RDW 13.3 % (11.5-15.5); WBC 6.7 k/uL (3.8-10.6)
[2020-09-04] MEDS: IPRATROPIUM-ALBUTEROL 3 ML NEB INHALATION SCH ×3 (07:25→19:28)
[2020-09-04] MEDS: PANTOPRAZOLE 40 MG TABLET PO SCH (07:43)
[2020-09-04] MEDS: THIAMINE 100 MG TAB PO SCH ×2 (07:44→17:18)
[2020-09-04] MEDS: SODIUM CHLORIDE 0.9% 1,000 ML IV SCH (11:15)
--- NOTE | 2020-09-04 14:55 | P.PN ---
Subjective Progress Note Date: 09/04/20 CHIEF COMPLAINT: History of perforated diverticulitis HISTORY OF PRESENT ILLNESS: Patient is status post reversal of colostomy, drainage pelvic abscess, sigmoid colectomy and appendectomy. Postop day #4. Patient is sitting up at bedside chair. He is still had no bowel activity. Denies any nausea or vomiting. He is tolerating clear liquid diet. Afebrile. WBC is 6.7. His culture results had shown E. coli and proteus mirabilis. Followed by infectious disease. Patient has Benedict catheter. Urine is yellow and clear PHYSICAL EXAM: VITAL SIGNS: Reviewed. GENERAL: Well-developed in no acute distress. HEENT: No sclera icterus. Extraocular movements grossly intact. Moist buccal mucosa. Head is atraumatic, normocephalic. ABDOMEN: Soft. Nondistended. Nontender. Incision site is clean dry and intact NEUROLOGIC: Alert and oriented. Cranial nerves II through XII grossly intact. ASSESSMENT: 1. History of perforated diverticulitis and pelvic abscess status post reversal of colostomy, drainage of pelvic abscess, sigmoid colectomy and appendectomy 2. Colovesical fistula continue Benedict catheter PLAN: -Continue antibiotics per ID -Continue clear liquid diet -Continue Benedict catheter -Consult PT OT -GI prophylaxis Protonix and DVT prophylaxis subcu heparin Physician Comptroller note has been reviewed by physician. Signing provider agrees with the documented findings, assessment, and plan of care. Objective - Vital Signs Vital signs: Vital Signs Temp 98.0 F 09/04/20 11:41 Pulse 67 09/04/20 11:41 Resp 16 09/04/20 11:41 BP 129/71 09/04/20 11:41 Pulse Ox 94 L 09/04/20 11:41 Intake & Output 09/03/20 09/04/20 09/04/20 18:59 06:59 18:59 Output Total 2750 1600 700 Balance -2750 -1600 -700 Output: Urine 2750 1600 700 Other: Voiding Method Indwelling Catheter Indwelling Catheter Indwelling Catheter # Bowel Movements 0 - Labs CBC & Chem 7: 09/04/20 06:13 09/02/20 05:07 Labs: Abnormal Lab Results - Last 24 Hours (Table) 09/04/20 Range/Units 06:13 RBC 3.13 L (4.30-5.90) m/uL Hgb 11.0 L (13.0-17.5) gm/dL Hct 33.0 L (39.0-53.0) % MCV 105.4 H (80.0-100.0) fL MCH 35.1 H (25.0-35.0) pg Lymphocytes # 0.5 L (1.0-4.8) k/uL Microbiology - Last 24 Hours (Table) 09/01/20 21:16 Blood Culture - Preliminary Blood No Growth after 48 hours 09/02/20 14:17 Urine Culture - Final Urine,Catheterized 08/31/20 12:20 Anaerobic Culture - Preliminary Abdomen
--- NOTE | 2020-09-04 18:03 | P.PN ---
Subjective This is a pleasant 75 years old male with multiple medical problems was admitted with recent history of a PERFORATED diverticulitis and pelvic abscess. This time patient was admitted and he is status post reversal of colostomy and drainage of pelvic abscess as well as sigmoid colectomy and appendectomy on 08/31 by surgical primary team. Medical consult was requested for medical management. Today patient is sitting in chair with minimal discomfort at the surgical site, he is tolerating a clear liquid diet with no nausea vomiting. Abdominal pain is only with coughing but he has normal bowel movement yet. No chest pain or dyspnea. Benedict catheter is in place. Vitals and labs are stable. No labs from today. Pathological report still pending. Infectious disease on the case and they recommended Zosyn to switch to oral vancomycin Upon discharge. Patient is on CIWA protocol but with no overt signs of withdrawal when I saw the patient. Also patient is on normal saline at 50 mL per hour. Objective - Vital Signs Vital signs: Vital Signs Temp 98.0 F 09/04/20 11:41 Pulse 67 09/04/20 11:41 Resp 16 09/04/20 11:41 BP 129/71 09/04/20 11:41 Pulse Ox 94 L 09/04/20 11:41 Intake & Output 09/03/20 09/04/20 09/04/20 18:59 06:59 18:59 Intake Total 800 Output Total 2750 1600 1300 Balance -2750 -1600 -500 Intake: Intake, IV Titration 800 Amount Piperacillin-Tazobactam 3 200 .375 gm In Sodium Chloride 0.9% 100 ml @ 25 mls/hr IVPB Q8HR [facility] Rx# :[id number] Sodium Chloride 0.9% 1, 600 000 ml @ 50 mls/hr IV . Q20H [facility] Rx#:[id number] Output: Urine 2750 1600 1300 Other: Voiding Method Indwelling Catheter Indwelling Catheter Indwelling Catheter # Bowel Movements 0 - Exam GENERAL: The patient is alert and oriented x3, not in any acute distress. Well developed, well nourished. HEENT: Pupils are round and equally reacting to light. EOMI. No scleral icterus. No conjunctival pallor. Normocephalic, atraumatic. No pharyngeal erythema. No thyromegaly. CARDIOVASCULAR: S1 and S2 present. No murmurs, rubs, or gallops. PULMONARY: Chest is clear to auscultation, no wheezing or crackles. -ABDOMEN: Soft, nontender, nondistended, normoactive bowel sounds. No palpable organomegaly. Surgical wound is healed and closing MUSCULOSKELETAL: No joint swelling or deformity. EXTREMITIES: No cyanosis, clubbing, or pedal edema. NEUROLOGICAL: Gross neurological examination did not reveal any focal deficits. SKIN: No rashes. No petechiae - Labs CBC & Chem 7: 09/04/20 06:13 09/02/20 05:07 Labs: Abnormal Lab Results - Last 24 Hours (Table) 09/04/20 Range/Units 06:13 RBC 3.13 L (4.30-5.90) m/uL Hgb 11.0 L (13.0-17.5) gm/dL Hct 33.0 L (39.0-53.0) % MCV 105.4 H (80.0-100.0) fL MCH 35.1 H (25.0-35.0) pg Lymphocytes # 0.5 L (1.0-4.8) k/uL Microbiology - Last 24 Hours (Table) 08/31/20 12:20 Anaerobic Culture - Final Abdomen 09/01/20 21:16 Blood Culture - Preliminary Blood No Growth after 48 hours 09/02/20 14:17 Urine Culture - Final Urine,Catheterized Assessment and Plan Assessment: History of perforated diverticulitis and pelvic abscess. Status post reversal of colostomy and drainage of the pelvic abscess and sigmoid colectomy and appendectomy on 08/31 Intra-abdominal infection Alcohol abuse at-risk of alcohol withdrawal Plan: This is a pleasant 75 years old male who presents with reverse her colostomy, drainage of pelvic abscess and sigmoid colectomy. Continue with CIWA protocol and may mean for his alcohol abuse. Continue with Zosyn per ID team recommendation, his antibiotic is going to be switched to oral vancomycin upon discharge. Currently patient continue with normal saline. Labs and medication were reviewed.. Continue same treatment. Continue with sym ptomatic treatment. Resume home medication. Monitor lytes and vitals. DVT and GI prophylaxis. Further recommendationsas per clinical course of the patient
--- NOTE | 2020-09-04 20:53 | PN ---
PROGRESS NOTE DATE OF SERVICE: 09/04/2020 REASON FOR FOLLOWUP: Intraabdominal abscess. INTERVAL HISTORY: The patient is afebrile, has been breathing comfortably. The patient denies having any chest pain or shortness of breath or cough. Abdominal pain has decreased in intensity. No vomiting or diarrhea. PHYSICAL EXAMINATION: Blood pressure 158/78 with a pulse of 67, temperature 97.8. He is 98% on room air. General description is an elderly male lying in bed in no distress. RESPIRATORY SYSTEM: Unlabored breathing. Clear to auscultation anteriorly. HEART: S1, S2. Regular rate and rhythm. ABDOMEN: Soft. Mildly tender. No guarding or rigidity. LABS: Hemoglobin is 11, white count 6.7. BUN of 6, creatinine 0.7. DIAGNOSTIC IMPRESSION AND PLAN: Patient with abdominal abscess in this patient admitted to hospital for reversal of his colostomy. Did have the abscess. Culture with E coli and Proteus, covered with Zosyn. Transition to oral antibiotic on discharge. Continue supportive care. MMODL / IJN: [id number] /
[2020-09-05] MEDS: KETOROLAC 15 MG/ML 1 ML VIAL IVP SCH ×4 (05:12→23:23)
[2020-09-05] MEDS: SODIUM CHLORIDE 0.9% 1,000 ML IV SCH (07:08)
[2020-09-05] MEDS: IPRATROPIUM-ALBUTEROL 3 ML NEB INHALATION SCH ×3 (07:28→20:02)
[2020-09-05] MEDS: PANTOPRAZOLE 40 MG TABLET PO SCH (08:27)
[2020-09-05] MEDS: HEPARIN SODIUM,PORCINE/PF 5,000 UNIT/0.5 ML SYRINGE SQ SCH ×3 (08:27→23:23)
[2020-09-05] MEDS: PIPERACILLIN-TAZOBACTAM 3.375 GM in SODIUM CHLORIDE 0.9% 100 ML IVPB SCH ×3 (08:27→23:23)
[2020-09-05] MEDS: THIAMINE 100 MG TAB PO SCH ×2 (08:27→15:57)
--- NOTE | 2020-09-05 13:10 | P.PN ---
Subjective This is a pleasant 75 years old male with multiple medical problems was admitted with recent history of a PERFORATED diverticulitis and pelvic abscess. This time patient was admitted and he is status post reversal of colostomy and drainage of pelvic abscess as well as sigmoid colectomy and appendectomy on 08/31 by surgical primary team. Medical consult was requested for medical management. Today patient is sitting in chair with minimal discomfort at the surgical site, he is tolerating a clear liquid diet with no nausea vomiting. Abdominal pain is only with coughing but he has normal bowel movement yet. No chest pain or dyspnea. Benedict catheter is in place. Vitals and labs are stable. No labs from today. Pathological report still pending. Infectious disease on the case and they recommended Zosyn to switch to oral vancomycin Upon discharge. Patient is on CIWA protocol but with no overt signs of withdrawal when I saw the patient. Also patient is on normal saline at 50 mL per hour. 09/05/2020 Patient today is looking better, he is tolerating liquid diet, his abdominal pain only with movement or coughing. However he did not have bowel movement or passing gas yet. Pathology report: Diverticulosis with diverticular rupture, subserosal inflammation, fibrosis and fat necrosis. Benign appendix with acute serositis Patient remains on Zosyn with the plan to switch to oral antibiotics per ID team upon discharge Also he is on normal saline 50 mL/h Objective - Vital Signs Vital signs: Vital Signs Temp 98.5 F 09/05/20 11:19 Pulse 76 09/05/20 11:32 Resp 16 09/05/20 11:19 BP 162/75 09/05/20 11:19 Pulse Ox 96 09/05/20 04:29 Intake & Output 09/04/20 09/05/20 09/05/20 18:59 06:59 18:59 Intake Total 800 Output Total 1300 1400 600 Balance -500 -1400 -600 Intake: Intake, IV Titration 800 Amount Piperacillin-Tazobactam 3 200 .375 gm In Sodium Chloride 0.9% 100 ml @ 25 mls/hr IVPB Q8HR [facility] Rx# :[id number] Sodium Chloride 0.9% 1, 600 000 ml @ 50 mls/hr IV . Q20H [facility] Rx#:[id number] Output: Urine 1300 1400 600 Other: Voiding Method Indwelling Catheter Indwelling Catheter - Exam GENERAL: The patient is alert and oriented x3, not in any acute distress. Well developed, well nourished. HEENT: Pupils are round and equally reacting to light. EOMI. No scleral icterus. No conjunctival pallor. Normocephalic, atraumatic. No pharyngeal erythema. No thyromegaly. CARDIOVASCULAR: S1 and S2 present. No murmurs, rubs, or gallops. PULMONARY: Chest is clear to auscultation, no wheezing or crackles. -ABDOMEN: Soft, nontender, nondistended, normoactive bowel sounds. No palpable organomegaly. Surgical wound is healed and closing MUSCULOSKELETAL: No joint swelling or deformity. EXTREMITIES: No cyanosis, clubbing, or pedal edema. NEUROLOGICAL: Gross neurological examination did not reveal any focal deficits. SKIN: No rashes. No petechiae - Labs CBC & Chem 7: 09/04/20 06:13 09/02/20 05:07 Labs: Microbiology - Last 24 Hours (Table) 09/01/20 21:16 Blood Culture - Preliminary Blood No Growth after 72 hours 08/31/20 12:20 Anaerobic Culture - Final Abdomen Assessment and Plan Assessment: History of perforated diverticulitis and pelvic abscess. Status post reversal of colostomy and drainage of the pelvic abscess and sigmoid colectomy and appendectomy on 08/31 Intra-abdominal infection Alcohol abuse at-risk of alcohol withdrawal Plan: This is a pleasant 75 years old male who presents with reverse her colostomy, drainage of pelvic abscess and sigmoid colectomy. Continue with CIWA protocol and may mean for his alcohol abuse. Continue with Zosyn per ID team recommendation, his antibiotic is going to be switched to oral vancomycin upon discharge. Currently patient continue with normal saline. Labs and medication were reviewed.. Continue same treatment. Continue with symptomatic treatment. Resume home medication. Monitor lytes and vitals. DVT and GI prophylaxis. Further recommendationsas per clinical course of the amanda holder
--- NOTE | 2020-09-05 13:56 | P.PN ---
Subjective Progress Note Date: 09/05/20 CHIEF COMPLAINT: History of perforated diverticulitis HISTORY OF PRESENT ILLNESS: Patient is status post reversal of colostomy, drainage pelvic abscess, sigmoid colectomy and appendectomy. Postop day #5. Patient is sitting up at bedside chair. He did work with physical therapy. He is still had no bowel activity. Denies any nausea or vomiting. He is tolerating clear liquid diet. He reports that his pain is controlled. Afebrile. WBC is 6.7. His culture results had shown E. coli and proteus m irabilis. Followed by infectious disease. Patient has Benedict catheter. Urine is yellow and clear PHYSICAL EXAM: VITAL SIGNS: Reviewed. GENERAL: Well-developed in no acute distress. HEENT: No sclera icterus. Extraocular movements grossly intact. Moist buccal mucosa. Head is atraumatic, normocephalic. ABDOMEN: Soft. Nondistended. Incision site is clean dry and intact NEUROLOGIC: Alert and oriented. Cranial nerves II through XII grossly intact. ASSESSMENT: 1. History of perforated diverticulitis and pelvic abscess status post reversal of colostomy, drainage of pelvic abscess, sigmoid colectomy and appendectomy 2. Colovesical fistula continue Benedict catheter PLAN: -Continue antibiotics per ID -Continue clear liquid diet -Continue Benedict catheter -Consult PT OT -GI prophylaxis Protonix and DVT prophylaxis subcu heparin Physician Chief Enterprise Architect note has been reviewed by physician. Signing provider agrees with the documented findings, assessment, and plan of care. Objective - Vital Signs Vital signs: Vital Signs Temp 98.5 F 09/05/20 11:19 Pulse 76 09/05/20 11:32 Resp 16 09/05/20 11:19 BP 162/75 09/05/20 11:19 Pulse Ox 96 09/05/20 04:29 Intake & Output 09/04/20 09/05/20 09/05/20 18:59 06:59 18:59 Intake Total 800 Output Total 1300 1400 600 Balance -500 -1400 -600 Weight 52.5 kg Intake: Intake, IV Titration 800 Amount Piperacillin-Tazobactam 3 200 .375 gm In Sodium Chloride 0.9% 100 ml @ 25 mls/hr IVPB Q8HR [facility] Rx# :[id number] Sodium Chloride 0.9% 1, 600 000 ml @ 50 mls/hr IV . Q20H [facility] Rx#:[id number] Output: Urine 1300 1400 600 Other: Voiding Method Indwelling Catheter Indwelling Catheter - Labs CBC & Chem 7: 09/04/20 06:13 09/02/20 05:07 Labs: Microbiology - Last 24 Hours (Table) 09/01/20 21:16 Blood Culture - Preliminary Blood No Growth after 72 hours 08/31/20 12:20 Anaerobic Culture - Final Abdomen
--- NOTE | 2020-09-05 23:19 | PN ---
PROGRESS NOTE DATE OF SERVICE: 09/05/2020 REASON FOR FOLLOWUP: Intraabdominal abscess. INTERVAL HISTORY: The patient is afebrile. The patient has been breathing comfortably. The patient denies having any chest pain or shortness of breath or cough. No nausea, vomiting. Abdominal pain is slight decreased. Did not have any bowel movement since surgery. PHYSICAL EXAMINATION: Blood pressure 143/71 with a pulse of 73, temperature 98.2. He is 97% on room air. General description is an elderly male lying in bed in no distress. RESPIRATORY SYSTEM: Unlabored breathing. Clear to auscultation anteriorly. HEART: S1, S2. Regular rate and rhythm. ABDOMEN: Soft. No tenderness. LABS: Hemoglobin is 11, white count 6.7. DIAGNOSTIC IMPRESSION AND PLAN: Patient with intraabdominal abscess in this patient who is status post reversal of his colostomy. The patient is currently covered with Zosyn. Will transition to oral Augmentin on discharge and monitor his clinical course closely. Continue supportive care. MMODL / IJN: [id number] /
[2020-09-06] MEDS: HYDROcodone/APAP 7.5-325MG 1 EACH TAB PO PRN ×2 (00:22→23:25)
[2020-09-06] MEDS: SODIUM CHLORIDE 0.9% 1,000 ML IV SCH ×2 (00:23→23:27)
[2020-09-06] MEDS: KETOROLAC 15 MG/ML 1 ML VIAL IVP SCH ×2 (05:18→11:31)
[2020-09-06] MEDS: IPRATROPIUM-ALBUTEROL 3 ML NEB INHALATION SCH ×3 (07:12→19:04)
[2020-09-06] MEDS: THIAMINE 100 MG TAB PO SCH ×2 (08:32→16:29)
[2020-09-06] MEDS: PANTOPRAZOLE 40 MG TABLET PO SCH (08:32)
[2020-09-06] MEDS: PIPERACILLIN-TAZOBACTAM 3.375 GM in SODIUM CHLORIDE 0.9% 100 ML IVPB SCH ×2 (08:33→16:29)
[2020-09-06] MEDS: HEPARIN SODIUM,PORCINE/PF 5,000 UNIT/0.5 ML SYRINGE SQ SCH ×2 (08:33→16:29)
--- NOTE | 2020-09-06 15:09 | P.PN ---
Subjective Progress Note Date: 09/06/20 CHIEF COMPLAINT: History of perforated diverticulitis HISTORY OF PRESENT ILLNESS: Patient is status post reversal of colostomy, drainage pelvic abscess, sigmoid colectomy and appendectomy. Postop day #6. Patient is sitting up at bedside chair. He did work with physical therapy. He is still had no bowel activity. Denies any nausea or vomiting. He is tolerating clear liquid diet. He reports that his pain is controlled. Afebrile. His culture results had shown E. coli and proteus mirabilis. Fol lowed by infectious disease. Patient has Benedict catheter. Urine is yellow and clear PHYSICAL EXAM: VITAL SIGNS: Reviewed. GENERAL: Well-developed in no acute distress. HEENT: No sclera icterus. Extraocular movements grossly intact. Moist buccal mucosa. Head is atraumatic, normocephalic. ABDOMEN: Soft. Nondistended. Incision site is clean dry and intact NEUROLOGIC: Alert and oriented. Cranial nerves II through XII grossly intact. ASSESSMENT: 1. History of perforated diverticulitis and pelvic abscess status post reversal of colostomy, drainage of pelvic abscess, sigmoid colectomy and appendectomy 2. Colovesical fistula continue Benedict catheter PLAN: -Advance diet to full liquids -Add Reglan to help stimulate bowel function -Continue antibiotics per ID -Continue Benedict catheter -Consult PT OT -GI prophylaxis Protonix and DVT prophylaxis subcu heparin Physician Middleware Engineer note has been reviewed by physician. Signing provider agrees with the documented findings, assessment, and plan of care. Objective - Vital Signs Vital signs: Vital Signs Temp 98.0 F 09/06/20 11:37 Pulse 77 09/06/20 11:37 Resp 16 09/06/20 11:37 BP 159/74 09/06/20 11:37 Pulse Ox 96 09/06/20 11:37 Intake & Output 09/05/20 09/06/20 09/06/20 18:59 06:59 18:59 Output Total 1050 1100 Balance -1050 -1100 Weight 52.5 kg Output: Urine 1050 1100 Other: Voiding Method Indwelling Catheter Indwelling Catheter Indwelling Catheter - Labs CBC & Chem 7: 09/04/20 06:13 09/02/20 05:07 Labs: Microbiology - Last 24 Hours (Table) 09/01/20 21:16 Blood Culture - Preliminary Blood No Growth after 96 hours
[2020-09-06] MEDS: METOCLOPRAMIDE 5 MG/ML 2 ML VIAL IVP SCH (16:28)
--- NOTE | 2020-09-06 20:29 | PN ---
PROGRESS NOTE DATE OF SERVICE: 09/06/2020 REASON FOR FOLLOWUP: Intraabdominal abscess. INTERVAL HISTORY: The patient is afebrile. The patient is breathing comfortably. The patient denies any chest pain, shortness of breath or cough. Abdominal pain is currently controlled. No nausea or vomiting. Did not have any bowel movement yet. PHYSICAL EXAMINATION: Blood pressure 159/74 with a pulse of 77, temperature 98. He is 96% on room air. General description is an elderly male up in the chair in no distress. RESPIRATORY SYSTEM: Unlabored breathing. Clear to auscultation anteriorly. HEART: S1, S2. Regular rate and rhythm. ABDOMEN: Soft. Mildly tender. No guarding or rigidity. LABS: Hemoglobin is 11, white count 6.7. DIAGNOSTIC IMPRESSION AND PLAN: Patient with an intraabdominal abscess in this patient with a history of diverticulitis with diverting colostomy, status post reversal. Cultures are positive for E coli and Proteus. Patient is covered with Zosyn. To finish therapy with oral Augmentin when stable for discharge from surgical standpoint. Continue with supportive care. MMODL / IJN: [id number] /
--- NOTE | 2020-09-06 21:41 | P.PN ---
Subjective This is a pleasant 75 years old male with multiple medical problems was admitted with recent history of a PERFORATED diverticulitis and pelvic abscess. This time patient was admitted and he is status post reversal of colostomy and drainage of pelvic abscess as well as sigmoid colectomy and appendectomy on 08/31 by surgical primary team. Medical consult was requested for medical management. Today patient is sitting in chair with minimal discomfort at the surgical site, he is tolerating a clear liquid diet with no nausea vomiting. Abdominal pain is only with coughing but he has normal bowel movement yet. No chest pain or dyspnea. Benedict catheter is in place. Vitals and labs are stable. No labs from today. Pathological report still pending. Infectious disease on the case and they recommended Zosyn to switch to oral vancomycin Upon discharge. Patient is on CIWA protocol but with no overt signs of withdrawal when I saw the patient. Also patient is on normal saline at 50 mL per hour. 09/05/2020 Patient today is looking better, he is tolerating liquid diet, his abdominal pain only with movement or coughing. However he did not have bowel movement or passing gas yet. Pathology report: Diverticulosis with diverticular rupture, subserosal inflammation, fibrosis and fat necrosis. Benign appendix with acute serositis Patient remains on Zosyn with the plan to switch to oral antibiotics per ID team upon discharge Also he is on normal saline 50 mL/h 09/06/2020 Patient looks better and more, every day. He still on liquid diet. But normal bowel movements. No nausea vomiting or abdominal pain. He still has Benedict catheter Discussed with surgery team and recommended to keep the patient and advanced diet to full liquids Patient remains on Zosyn with plan to switch to oral Augmentin upon discharge per ID team Objective - Vital Signs Vital signs: Vital Signs Temp 98.5 F 09/06/20 20:44 Pulse 89 09/06/20 20:44 Resp 18 09/06/20 20:44 BP 156/75 09/06/20 20:44 Pulse Ox 93 L 09/06/20 20:44 Intake & Output 09/06/20 09/06/20 09/07/20 06:59 18:59 06:59 Intake Total 0 Output Total 1100 900 Balance -1100 -900 Intake: Intake, IV Titration 0 Amount Sodium Chloride 0.9% 1, 0 000 ml @ 50 mls/hr IV . Q20H [facility] Rx#:[id number] Output: Urine 1100 900 Other: Voiding Method Indwelling Catheter Indwelling Catheter - Exam GENERAL: The patient is alert and oriented x3, not in any acute distress. Well developed, well nourished. HEENT: Pupils are round and equally reacting to light. EOMI. No scleral icterus. No conjunctival pallor. Normocephalic, atraumatic. No pharyngeal erythema. No thyromegaly. CARDIOVASCULAR: S1 and S2 present. No murmurs, rubs, or gallops. PULMONARY: Chest is clear to auscultation, no wheezing or crackles. -ABDOMEN: Soft, nontender, nondistended, normoactive bowel sounds. No palpable organomegaly. Surgical wound is healed and closing MUSCULOSKELETAL: No joint swelling or deformity. EXTREMITIES: No cyanosis, clubbing, or pedal edema. NEUROLOGICAL: Gross neurological examination did not reveal any focal deficits. SKIN: No rashes. No petechiae - Labs CBC & Chem 7: 09/04/20 06:13 09/02/20 05:07 Labs: Microbiology - Last 24 Hours (Table) 09/01/20 21:16 Blood Culture - Preliminary Blood No Growth after 96 hours Assessment and Plan Assessment: History of perforated diverticulitis and pelvic abscess. Status post reversal of colostomy and drainage of the pelvic abscess and sigmoid colectomy and appendectomy on 08/31 Intra-abdominal infection Alcohol abuse at-risk of alcohol withdrawal Plan: This is a pleasant 75 years old male who presents with reverse her colostomy, drainage of pelvic abscess and sigmoid colectomy. Continue with CIWA protocol and may mean for his alcohol abuse. Continue with Zosyn per ID team recommendation, his antibiotic is going to be switched to oral vancomycin upon discharge. Currently patient continue with normal saline. Labs and medication were reviewed.. Continue same treatment. Continue with symptomatic treatment. Resume home medication. Monitor lytes and vitals. DVT and GI prophylaxis. Further recommendationsas per clinical course of the patient
[2020-09-07] MEDS: PIPERACILLIN-TAZOBACTAM 3.375 GM in SODIUM CHLORIDE 0.9% 100 ML IVPB SCH ×3 (00:52→16:52)
[2020-09-07] MEDS: HEPARIN SODIUM,PORCINE/PF 5,000 UNIT/0.5 ML SYRINGE SQ SCH ×3 (00:53→16:52)
[2020-09-07] MEDS: METOCLOPRAMIDE 5 MG/ML 2 ML VIAL IVP SCH ×4 (00:53→16:53)
[2020-09-07] MEDS: IPRATROPIUM-ALBUTEROL 3 ML NEB INHALATION SCH ×3 (07:02→20:13)
[2020-09-07] MEDS: THIAMINE 100 MG TAB PO SCH ×2 (09:28→16:53)
[2020-09-07] MEDS: HYDROcodone/APAP 7.5-325MG 1 EACH TAB PO PRN ×2 (09:28→16:54)
[2020-09-07] MEDS: PANTOPRAZOLE 40 MG TABLET PO SCH (09:28)
[2020-09-07 09:37] LABS: Basophils # (A) 0.1 k/uL (0-0.2); Basophils % (A) 1 %; Eosinophils # (A) 0.3 k/uL (0-0.7); Eosinophils % (A) 4 %; HCT 35.7 % (39.0-53.0); HGB 11.5 gm/dL (13.0-17.5); Lymphocytes # (A) 0.6 k/uL (1.0-4.8); Lymphocytes % (A) 8 %; MCH 34.7 pg (25.0-35.0); MCHC 32.2 g/dL (31.0-37.0); MCV 107.8 fL (80.0-100.0); Macrocytosis Moderate; Monocytes # (A) 0.5 k/uL (0-1.0); Monocytes % (A) 6 %; Neutrophils # (A) 6.6 k/uL (1.3-7.7); Neutrophils % (A) 80 %; Platelet Count 534 k/uL (150-450); RBC 3.31 m/uL (4.30-5.90); RDW 13.4 % (11.5-15.5); WBC 8.2 k/uL (3.8-10.6)
[2020-09-07 09:51] LABS: African American GFR (CKD) >90 (>60 ml/min/1.73 sqM); Anion Gap 7 mmol/L; Blood Urea Nitrogen 2 mg/dL (9-20); Calcium 8.4 mg/dL (8.4-10.2); Carbon Dioxide 25 mmol/L (22-30); Chloride 105 mmol/L (98-107); Glucose 135 mg/dL (74-99); Non-African American GFR(CKD) >90 (>60 ml/min/1.73 sqM); Potassium 4.2 mmol/L (3.5-5.1); Sodium 137 mmol/L (137-145)
--- NOTE | 2020-09-07 14:03 | P.PN ---
Subjective Progress Note Date: 09/07/20 CHIEF COMPLAINT: History of perforated diverticulitis HISTORY OF PRESENT ILLNESS: Patient is status post reversal of colostomy, drainage pelvic abscess, sigmoid colectomy and appendectomy. Postop day #7. Patient is sitting up at bedside chair. He did work with physical therapy. He is still had no bowel activity. Denies any nausea or vomiting. He is tolerating full liquid diet. He reports that his pain is controlled. Afebrile. His culture results had shown E. coli and proteus mirabilis. Followed by infectious disease. Infectious diseases recommending Augmentin when patient is stable for discharge. Patient has Benedict catheter. Urine is yellow and clear. WBC is 8.2 hemoglobin 11.5 creatinine 0.66 Patient seen and examined with Dr. Francis PHYSICAL EXAM: VITAL SIGNS: Reviewed. GENERAL: Well-developed in no acute distress. HEENT: No sclera icterus. Extraocular movements grossly intact. Moist buccal mucosa. Head is atraumatic, normocephalic. ABDOMEN: Soft. Nondistended. Incision site is clean dry and intact NEUROLOGIC: Alert and oriented. Cranial nerves II through XII grossly intact. ASSESSMENT: 1. History of perforated diverticulitis and pelvic abscess status post reversal of colostomy, drainage of pelvic abscess, sigmoid colectomy and appendectomy 2. Colovesical fistula continue Benedict catheter PLAN: -Continue full liquids -Continue Reglan to help stimulate bowel function -Continue antibiotics per ID -Continue Benedict catheter -Consult PT OT -GI prophylaxis Protonix and DVT prophylaxis subcu heparin Physician Shipping Processor note has been reviewed by physician. Signing provider agrees with the documented findings, assessment, and plan of care. Objective - Vital Signs Vital signs: Vital Signs Temp 98.3 F 09/07/20 12:07 Pulse 72 09/07/20 12:07 Resp 16 09/07/20 12:07 BP 135/72 09/07/20 12:07 Pulse Ox 95 09/07/20 12:07 Intake & Output 09/06/20 09/07/20 09/07/20 18:59 06:59 18:59 Intake Total 0 700 Output Total 900 700 Balance -900 0 Weight 52.5 kg Intake: Intake, IV Titration 0 700 Amount Piperacillin-Tazobactam 3 100 .375 gm In Sodium Chloride 0.9% 100 ml @ 25 mls/hr IVPB Q8HR [facility] Rx# :[id number] Sodium Chloride 0.9% 1, 0 600 000 ml @ 50 mls/hr IV . Q20H [facility] Rx#:[id number] Output: Urine 900 700 Uretheral (Benedict) 700 Other: Voiding Method Indwelling Catheter Indwelling Catheter Indwelling Catheter # Bowel Movements 0 - Labs CBC & Chem 7: 09/07/20 08:49 09/07/20 08:49 Labs: Abnormal Lab Results - Last 24 Hours (Table) 09/07/20 09/07/20 Range/Units 08:49 08:49 RBC 3.31 L (4.30-5.90) m/uL Hgb 11.5 L (13.0-17.5) gm/dL Hct 35.7 L (39.0-53.0) % MCV 107.8 H (80.0-100.0) fL Plt Count 534 H (150-450) k/uL Lymphocytes # 0.6 L (1.0-4.8) k/uL BUN 2 L (9-20) mg/dL Glucose 135 H (74-99) mg/dL Microbiology - Last 24 Hours (Table) 09/01/20 21:16 Blood Culture - Preliminary Blood No Growth after 120 hours
--- NOTE | 2020-09-07 14:15 | P.PN ---
Subjective This is a pleasant 75 years old male with multiple medical problems was admitted with recent history of a PERFORATED diverticulitis and pelvic abscess. This time patient was admitted and he is status post reversal of colostomy and drainage of pelvic abscess as well as sigmoid colectomy and appendectomy on 08/31 by surgical primary team. Medical consult was requested for medical management. Today patient is sitting in chair with minimal discomfort at the surgical site, he is tolerating a clear liquid diet with no nausea vomiting. Abdominal pain is only with coughing but he has normal bowel movement yet. No chest pain or dyspnea. Benedict catheter is in place. Vitals and labs are stable. No labs from today. Pathological report still pending. Infectious disease on the case and they recommended Zosyn to switch to oral vancomycin Upon discharge. Patient is on CIWA protocol but with no overt signs of withdrawal when I saw the patient. Also patient is on normal saline at 50 mL per hour. 09/05/2020 Patient today is looking better, he is tolerating liquid diet, his abdominal pain only with movement or coughing. However he did not have bowel movement or passing gas yet. Pathology report: Diverticulosis with diverticular rupture, subserosal inflammation, fibrosis and fat necrosis. Benign appendix with acute serositis Patient remains on Zosyn with the plan to switch to oral antibiotics per ID team upon discharge Also he is on normal saline 50 mL/h 09/06/2020 Patient looks better and more, every day. He still on liquid diet. But normal bowel movements. No nausea vomiting or abdominal pain. He still has Benedict catheter Discussed with surgery team and recommended to keep the patient and advanced diet to full liquids Patient remains on Zosyn with plan to switch to oral Augmentin upon discharge per ID team Patient states with no bowel movement although he is on liquid diet, diet could be advanced today per surgery team. Reglan is going to be started Patient improved gradually but no bowel movement., Patient feels the urge to defecate gait but no bowel movement. Patient remains on Zosyn. Discontinue IV fluids Objective - Vital Signs Vital signs: Vital Signs Temp 98.3 F 09/07/20 12:07 Pulse 72 09/07/20 12:07 Resp 16 09/07/20 12:07 BP 135/72 09/07/20 12:07 Pulse Ox 95 09/07/20 12:07 Intake & Output 09/06/20 09/07/20 09/07/20 18:59 06:59 18:59 Intake Total 0 700 Output Total 900 700 Balance -900 0 Intake: Intake, IV Titration 0 700 Amount Piperacillin-Tazobactam 3 100 .375 gm In Sodium Chloride 0.9% 100 ml @ 25 mls/hr IVPB Q8HR [facility] Rx# :[id number] Sodium Chloride 0.9% 1, 0 600 000 ml @ 50 mls/hr IV . Q20H [facility] Rx#:[id number] Output: Urine 900 700 Uretheral (Benedict) 700 Other: Voiding Method Indwelling Catheter Indwelling Catheter Indwelling Catheter # Bowel Movements 0 - Exam GENERAL: The patient is alert and oriented x3, not in any acute distress. Well developed, well nourished. HEENT: Pupils are round and equally reacting to light. EOMI. No scleral icterus. No conjunctival pallor. Normocephalic, atraumatic. No pharyngeal erythema. No thyromegaly. CARDIOVASCULAR: S1 and S2 present. No murmurs, rubs, or gallops. PULMONARY: Chest is clear to auscultation, no wheezing or crackles. -ABDOMEN: Soft, nontender, nondistended, normoactive bowel sounds. No palpable organomegaly. Surgical wound is healed and closing MUSCULOSKELETAL: No joint swelling or deformity. EXTREMITIES: No cyanosis, clubbing, or pedal edema. NEUROLOGICAL: Gross neurological examination did not reveal any focal deficits. SKIN: No rashes. No petechiae - Labs CBC & Chem 7: 09/07/20 08:49 09/07/20 08:49 Labs: Abnormal Lab Results - Last 24 Hours (Table) 09/07/20 09/07/20 Range/Units 08:49 08:49 RBC 3.31 L (4.30-5.90) m/uL Hgb 11.5 L (13.0-17.5) gm/dL Hct 35.7 L (39.0-53.0) % MCV 107.8 H (80.0-100.0) fL Plt Count 534 H (150-450) k/uL Lymphocytes # 0.6 L (1.0-4.8) k/uL BUN 2 L (9-20) mg/dL Glucose 135 H (74-99) mg/dL Microbiology - Last 24 Hours (Table) 09/01/20 21:16 Blood Culture - Preliminary Blood No Growth after 120 hours Assessment and Plan Assessment: History of perforated diverticulitis and pelvic abscess. Status post reversal of colostomy and drainage of the pelvic abscess and sigmoid colectomy and appendectomy on 08/31 Intra-abdominal infection Alcohol abuse at-risk of alcohol withdrawal Plan: This is a pleasant 75 years old male who presents with reverse her colostomy, drainage of pelvic abscess and sigmoid colectomy. Continue with CIWA protocol and may mean for his alcohol abuse. Continue with Zosyn per ID team recommendation, his antibiotic is going to be switched to oral vancomycin upon discharge. Currently patient continue with normal saline. Labs and medication were reviewed.. Continue same treatment. Continue with symptomatic treatment. Resume home medication. Monitor lytes and vitals. DVT and GI prophylaxis. Further recommendationsas per clinical course of the patient
--- NOTE | 2020-09-07 18:21 | PN ---
PROGRESS NOTE DATE OF SERVICE: 09/07/2020 REASON FOR FOLLOW UP: Intraabdominal abscess. INTERVAL HISTORY: The patient is currently afebrile. Patient is breathing comfortably. The patient denies having any chest pain. No shortness of breath or cough. Still did not have any bowel movement. Denies any worsening abdominal pain though and is tolerating his diet. PHYSICAL EXAMINATION: Blood pressure 135/72 with a pulse of 72, temperature 98.3. He is 95% on room air. The patient is an elderly male up in the chair in no distress. Respiratory system: Unlabored breathing, clear to auscultation anteriorly. Heart S1, S2. Regular rate and rhythm. Abdomen soft. Mildly tender. No guarding. No rigidity. LABS: Hemoglobin of 11.5, white count 8.2, BUN of 10, creatinine 0.66. DIAGNOSTIC IMPRESSION AND PLAN: Patient with abdominal abscess, status post reversal of his colostomy. Abdominal culture E. coli. Currently covered with Unasyn. Transition to oral antibiotic on discharge and continue supportive care. MMODL / IJN: [id number] /
[2020-09-08] MEDS: HYDROcodone/APAP 7.5-325MG 1 EACH TAB PO PRN ×3 (00:12→18:34)
[2020-09-08] MEDS: METOCLOPRAMIDE 5 MG/ML 2 ML VIAL IVP SCH ×4 (00:13→18:30)
[2020-09-08] MEDS: HEPARIN SODIUM,PORCINE/PF 5,000 UNIT/0.5 ML SYRINGE SQ SCH ×3 (00:13→18:30)
[2020-09-08] MEDS: PIPERACILLIN-TAZOBACTAM 3.375 GM in SODIUM CHLORIDE 0.9% 100 ML IVPB SCH ×3 (00:40→20:37)
[2020-09-08] MEDS: IPRATROPIUM-ALBUTEROL 3 ML NEB INHALATION SCH ×3 (07:34→20:15)
[2020-09-08] MEDS: THIAMINE 100 MG TAB PO SCH ×2 (08:17→18:34)
[2020-09-08] MEDS: PANTOPRAZOLE 40 MG TABLET PO SCH (08:17)
--- NOTE | 2020-09-08 12:53 | P.PN ---
Subjective Progress Note Date: 09/08/20 CHIEF COMPLAINT: Diverticulitis HISTORY OF PRESENT ILLNESS: The patient is a 75-year-old male status post colostomy reversal and drainage of pelvic abscess 08/31/2020. He has history of colovesical fistula status post repair. He reports passing flatus. No bowel movements. He is tolerating liquid diet. He reports mild abdominal cramping. He has chronic anemia. ROS: No reports of nausea and vomiting. No bowel movements. No fevers or chills. No new chest pain. No productive sputum PHYSICAL EXAM: VITAL SIGNS: Reviewed CONSTITUTIONAL: Well developed and in no acute distress. EYES: Conjuctivae without sclera icterus. Extraocular movements grossly intact. HEAD, EARS, NOSE, THROAT: Moist buccal mucosa. Head is atraumatic, normocephalic. Hears conversational speech. No nasal drainage. NECK: Supple. RESPIRATORY: Non-labored respirations and equal bilateral excursions. CARDIOVASCULAR: Palpable 2+ radial pulses. ABDOMEN: Dressing intact MUSCULOSKELETAL: No gross deformity of the lower extremities noted. No clubbing. No cyanosis. SKIN: Good skin turgor. Well perfused. NEUROLOGIC: Cranial nerves II through XII grossly intact. No focal or lateralizing signs. PSYCH: Appropriate affect. Alert and oriented to person, place and time. CLINICAL LABS: Reviewed. WBC normal 8.2 Hemoglobin stable 11.5. ASSESSMENT: 1. Complicated diverticulitis with pelvic abscess status post reversal PLAN: 1. Continue full liquid diet. 2. Recommend Entereg for ileus Objective - Vital Signs Vital signs: Vital Signs Temp 98 F 09/08/20 05:00 Pulse 70 09/08/20 07:42 Resp 20 09/08/20 05:00 BP 138/69 09/08/20 05:00 Pulse Ox 93 L 09/08/20 05:00 Intake & Output 09/07/20 09/08/20 09/08/20 18:59 06:59 18:59 Intake Total 1500 1200 Output Total 200 1200 Balance 1300 0 Weight 52.5 kg Intake: Intake, IV Titration 700 600 Amount Piperacillin-Tazobactam 3 100 .375 gm In Sodium Chloride 0.9% 100 ml @ 25 mls/hr IVPB Q8HR [facility] Rx# :[id number] Sodium Chloride 0.9% 1, 600 600 000 ml @ 50 mls/hr IV . Q20H [facility] Rx#:[id number] Oral 800 600 Output: Urine 200 1200 Uretheral (Benedict) 200 1200 Other: Voiding Method Indwelling Catheter Indwelling Catheter - Labs CBC & Chem 7: 09/07/20 08:49 09/07/20 08:49 Labs: Microbiology - Last 24 Hours (Table) 09/01/20 21:16 Blood Culture - Final Blood No Growth after 144 hours Assessment and Plan (1) Diverticulitis large intestine Current Visit: Yes Status: Acute Code(s): K57.32 - DVTRCLI OF LG INT W/O PERFORATION OR ABSCESS W/O BLEEDING SNOMED Code(s): 9287810 (2) Abdominal pain Current Visit: No Status: Acute Code(s): R10.9 - UNSPECIFIED ABDOMINAL PAIN SNOMED Code(s): 68754502 (3) Chronic disease anemia Current Visit: No Status: Acute Code(s): D63.8 - ANEMIA IN OTHER CHRONIC DISEASES CLASSIFIED ELSEWHERE SNOMED Code(s): 428381297 (4) Colovesical fistula Current Visit: No Status: Acute Code(s): N32.1 - VESICOINTESTINAL FISTULA SNOMED Code(s): 49897831
[2020-09-08] MEDS: ALVIMOPAN 12 MG CAPSULE PO SCH ×2 (13:24→21:05)
--- NOTE | 2020-09-08 21:16 | P.PN ---
Subjective This is a pleasant 75 years old male with multiple medical problems was admitted with recent history of a PERFORATED diverticulitis and pelvic abscess. This time patient was admitted and he is status post reversal of colostomy and drainage of pelvic abscess as well as sigmoid colectomy and appendectomy on 08/31 by surgical primary team. Medical consult was requested for medical management. Today patient is sitting in chair with minimal discomfort at the surgical site, he is tolerating a clear liquid diet with no nausea vomiting. Abdominal pain is only with coughing but he has normal bowel movement yet. No chest pain or dyspnea. Benedict catheter is in place. Vitals and labs are stable. No labs from today. Pathological report still pending. Infectious disease on the case and they recommended Zosyn to switch to oral vancomycin Upon discharge. Patient is on CIWA protocol but with no overt signs of withdrawal when I saw the patient. Also patient is on normal saline at 50 mL per hour. 09/05/2020 Patient today is looking better, he is tolerating liquid diet, his abdominal pain only with movement or coughing. However he did not have bowel movement or passing gas yet. Pathology report: Diverticulosis with diverticular rupture, subserosal inflammation, fibrosis and fat necrosis. Benign appendix with acute serositis Patient remains on Zosyn with the plan to switch to oral antibiotics per ID team upon discharge Also he is on normal saline 50 mL/h 09/06/2020 Patient looks better and more, every day. He still on liquid diet. But normal bowel movements. No nausea vomiting or abdominal pain. He still has Benedict catheter Discussed with surgery team and recommended to keep the patient and advanced diet to full liquids Patient remains on Zosyn with plan to switch to oral Augmentin upon discharge per ID team 09/07/2020 Patient stay with no bowel movement although he is on liquid diet, diet could be advanced today per surgery team. Reglan is going to be started Patient improved gradually but no bowel movement., Patient feels the urge to defecate gait but no bowel movement. Patient remains on Zosyn. Discontinue IV fluids 09/08/2020 Patient still on liquid diet, Reglan was added yesterday by surgery team however he still has normal bowel movement although reports more gas. Other than that he looks clinically stable and improved gradually. Objective - Vital Signs Vital signs: Vital Signs Temp 99.3 F 09/08/20 19:39 Pulse 66 09/08/20 20:26 Resp 16 09/08/20 20:00 BP 147/68 09/08/20 19:39 Pulse Ox 92 L 09/08/20 19:39 Intake & Output 09/08/20 09/08/20 09/09/20 06:59 18:59 06:59 Intake Total 1200 Output Total 1200 Balance 0 Intake: Intake, IV Titration 600 Amount Sodium Chloride 0.9% 1, 600 000 ml @ 50 mls/hr IV . Q20H [facility] Rx#:[id number] Oral 600 Output: Urine 1200 Uretheral (Benedict) 1200 Other: Voiding Method Indwelling Catheter Indwelling Catheter Indwelling Catheter # Bowel Movements 0 - Exam GENERAL: The patient is alert and oriented x3, not in any acute distress. Well developed, well nourished. HEENT: Pupils are round and equally reacting to light. EOMI. No scleral icterus. No conjunctival pallor. Normocephalic, atraumatic. No pharyngeal erythema. No thyromegaly. CARDIOVASCULAR: S1 and S2 present. No murmurs, rubs, or gallops. PULMONARY: Chest is clear to auscultation, no wheezing or crackles. -ABDOMEN: Soft, nontender, nondistended, normoactive bowel sounds. No palpable organomegaly. Surgical wound is healed and closing MUSCULOSKELETAL: No joint swelling or deformity. EXTREMITIES: No cyanosis, clubbing, or pedal edema. NEUROLOGICAL: Gross neurological examination did not reveal any focal deficits. SKIN: No rashes. No petechiae - Labs CBC & Chem 7: 09/07/20 08:49 09/07/20 08:49 Labs: Microbiology - Last 24 Hours (Table) 09/01/20 21:16 Blood Culture - Final Blood No Growth after 144 hours Assessment and Plan Assessment: History of perforated diverticulitis and pelvic abscess. Status post reversal of colostomy and drainage of the pelvic abscess and sigmoid colectomy and appendectomy on 08/31 Intra-abdominal infection Alcohol abuse at-risk of alcohol withdrawal Plan: This is a pleasant 75 years old male who presents with reverse her colostomy, drainage of pelvic abscess and sigmoid colectomy. Continue with CIWA protocol and may mean for his alcohol abuse. Continue with Zosyn per ID team recomm endation, his antibiotic is going to be switched to oral vancomycin upon discharge. Currently patient continue with normal saline. Labs and medication were reviewed.. Continue same treatment. Continue with symptomatic treatment. Resume home medication. Monitor lytes and vitals. DVT and GI prophylaxis. Further recommendationsas per clinical course of the patient
[2020-09-09] MEDS ORDERED: PIPERACILLIN-TAZOBACTAM 3.375 GM in SODIUM CHLORIDE 0.9% 100 ML IVPB SCH ×2
[2020-09-09] MEDS: METOCLOPRAMIDE 5 MG/ML 2 ML VIAL IVP SCH ×4 (00:31→15:23)
[2020-09-09] MEDS: HEPARIN SODIUM,PORCINE/PF 5,000 UNIT/0.5 ML SYRINGE SQ SCH ×4 (00:31→23:46)
[2020-09-09] MEDS: PIPERACILLIN-TAZOBACTAM 3.375 GM in SODIUM CHLORIDE 0.9% 100 ML IVPB SCH ×3 (04:58→19:53)
--- NOTE | 2020-09-09 07:49 | PN ---
PROGRESS NOTE DATE OF SERVICE: 09/08/2020 REASON FOR FOLLOWUP: Intraabdominal abscess. INTERVAL HISTORY: Patient is afebrile. The patient is breathing comfortably. The patient denies having any chest pain. No shortness of breath or cough. Abdominal pain is currently controlled. Has been passing gas. Had not had any bowel movement. PHYSICAL EXAMINATION: VITAL SIGNS: Blood pressure 147/58 with a pulse of 64, temperature 99.3. He is 92% on room air. GENERAL DESCRIPTION: An elderly male up in the chair in no distress. RESPIRATORY SYSTEM: Unlabored breathing, clear to auscultation anteriorly. HEART: S1, S2. Regular rate and rhythm. ABDOMEN: Soft, no tenderness. No guarding or rigidity. LABS: Hemoglobin is 11.5, white count 8.2, creatinine 0.66. DIAGNOSTIC IMPRESSION AND PLAN: Patient with intraabdominal abscess in this patient status post colostomy reversal. Patient is covered with Zosyn, transition to oral antibiotic on discharge and continue supportive care. MMODL / IJN: [id number] /
[2020-09-09] MEDS: ALVIMOPAN 12 MG CAPSULE PO SCH ×2 (08:07→19:52)
[2020-09-09] MEDS: PANTOPRAZOLE 40 MG TABLET PO SCH (08:07)
[2020-09-09] MEDS: THIAMINE 100 MG TAB PO SCH ×2 (08:07→15:22)
[2020-09-09] MEDS: HYDROcodone/APAP 7.5-325MG 1 EACH TAB PO PRN ×3 (08:07→22:05)
[2020-09-09] MEDS: IPRATROPIUM-ALBUTEROL 3 ML NEB INHALATION SCH ×3 (08:17→20:37)
--- NOTE | 2020-09-09 14:46 | P.PN ---
Subjective Progress Note Date: 09/09/20 CHIEF COMPLAINT: Diverticulitis HISTORY OF PRESENT ILLNESS: The patient is a 75-year-old male status post colostomy reversal and drainage of pelvic abscess 08/31/2020. He has history of colovesical fistula status post repair. He is passing moderate flatus and having bowel movements. He feels much better. He is sitting up in the chair. ROS: No reports of nausea and vomiting. No bowel movements. No fevers or chills. No new chest pain. No productive sputum PHYSICAL EXAM: VITAL SIGNS: Reviewed CONSTITUTIONAL: Well developed and in no acute distress. EYES: Conjuctivae without sclera icterus. Extraocular movements grossly intact. HEAD, EARS, NOSE, THROAT: Moist buccal mucosa. Head is atraumatic, normocephalic. Hears conversational speech. No nasal drainage. NECK: Supple. RESPIRATORY: Non-labored respirations and equal bilateral excursions. CARDIOVASCULAR: Palpable 2+ radial pulses. ABDOMEN: Dressing intact MUSCULOSKELETAL: No gross deformity of the lower extremities noted. No clubbing. No cyanosis. SKIN: Good skin turgor. Well perfused. NEUROLOGIC: Cranial nerves II through XII grossly intact. No focal or lateralizing signs. PSYCH: Appropriate affect. Alert and oriented to person, place and time. CLINICAL LABS: No new labs ASSESSMENT: 1. Complicated diverticulitis with pelvic abscess status post reversal PLAN: 1. He is passing flatus and having bowel movements. Will advance diet to low fiber. Objective - Vital Signs Vital signs: Vital Signs Temp 98 F 09/09/20 12:38 Pulse 56 L 09/09/20 12:38 Resp 18 09/09/20 12:38 BP 122/67 09/09/20 12:38 Pulse Ox 95 09/09/20 12:38 Intake & Output 09/08/20 09/09/20 09/09/20 18:59 06:59 18:59 Intake Total 1000 Output Total 825 Balance 175 Intake: Oral 1000 Output: Urine 825 Uretheral (Benedict) 825 Other: Voiding Method Indwelling Catheter Indwelling Catheter Indwelling Catheter # Bowel Movements 0 - Labs CBC & Chem 7: 09/07/20 08:49 09/07/20 08:49 Assessment and Plan (1) Diverticulitis large intestine Current Visit: Yes Status: Acute Code(s): K57.32 - DVTRCLI OF LG INT W/O PERFORATION OR ABSCESS W/O BLEEDING SNOMED Code(s): 4909853 (2) Abdominal pain Current Visit: No Status: Acute Code(s): R10.9 - UNSPECIFIED ABDOMINAL PAIN SNOMED Code(s): 20855305 (3) Chronic disease anemia Current Visit: No Status: Acute Code(s): D63.8 - ANEMIA IN OTHER CHRONIC DISEASES CLASSIFIED ELSEWHERE SNOMED Code(s): 776036550 (4) Colovesical fistula Current Visit: No Status: Acute Code(s): N32.1 - VESICOINTESTINAL FISTULA SNOMED Code(s): 13545505
--- NOTE | 2020-09-09 15:15 | P.PN ---
Subjective This is a pleasant 75 years old male with multiple medical problems was admitted with recent history of a PERFORATED diverticulitis and pelvic abscess. This time patient was admitted and he is status post reversal of colostomy and drainage of pelvic abscess as well as sigmoid colectomy and appendectomy on 08/31 by surgical primary team. Medical consult was requested for medical management. Today patient is sitting in chair with minimal discomfort at the surgical site, he is tolerating a clear liquid diet with no nausea vomiting. Abdominal pain is only with coughing but he has normal bowel movement yet. No chest pain or dyspnea. Benedict catheter is in place. Vitals and labs are stable. No labs from today. Pathological report still pending. Infectious disease on the case and they recommended Zosyn to switch to oral vancomycin Upon discharge. Patient is on CIWA protocol but with no overt signs of withdrawal when I saw the patient. Also patient is on normal saline at 50 mL per hour. 09/05/2020 Patient today is looking better, he is tolerating liquid diet, his abdominal pain only with movement or coughing. However he did not have bowel movement or passing gas yet. Pathology report: Diverticulosis with diverticular rupture, subserosal inflammation, fibrosis and fat necrosis. Benign appendix with acute serositis Patient remains on Zosyn with the plan to switch to oral antibiotics per ID team upon discharge Also he is on normal saline 50 mL/h 09/06/2020 Patient looks better and more, every day. He still on liquid diet. But normal bowel movements. No nausea vomiting or abdominal pain. He still has Benedict catheter Discussed with surgery team and recommended to keep the patient and advanced diet to full liquids Patient remains on Zosyn with plan to switch to oral Augmentin upon discharge per ID team 09/07/2020 Patient stay with no bowel movement although he is on liquid diet, diet could be advanced today per surgery team. Reglan is going to be started Patient improved gradually but no bowel movement., Patient feels the urge to defecate gait but no bowel movement. Patient remains on Zosyn. Discontinue IV fluids 09/08/2020 Patient still on liquid diet, Reglan was added yesterday by surgery team however he still has normal bowel movement although reports more gas. Other than that he looks clinically stable and improved gradually. 09/09/2020 No significant change clinically, actually he looks better every day. He is tolerating liquid diet. When I saw the patient in the morning he did not have bowel movement however as per surgery like patient had bowel movement and the advanced his diet low fiber. We will keep monitoring Objective - Vital Signs Vital signs: Vital Signs Temp 98 F 09/09/20 12:38 Pulse 56 L 09/09/20 12:38 Resp 18 09/09/20 12:38 BP 122/67 09/09/20 12:38 Pulse Ox 95 09/09/20 12:38 Intake & Output 09/08/20 09/09/20 09/09/20 18:59 06:59 18:59 Intake Total 1000 Output Total 825 Balance 175 Intake: Oral 1000 Output: Urine 825 Uretheral (Benedict) 825 Other: Voiding Method Indwelling Catheter Indwelling Catheter Indwelling Catheter # Bowel Movements 0 - Exam GENERAL: The patient is alert and oriented x3, not in any acute distress. Well developed, well nourished. HEENT: Pupils are round and equally reacting to light. EOMI. No scleral icterus. No conjunctival pallor. Normocephalic, atraumatic. No pharyngeal erythema. No thyromegaly. CARDIOVASCULAR: S1 and S2 present. No murmurs, rubs, or gallops. PULMONARY: Chest is clear to auscultation, no wheezing or crackles. -ABDOMEN: Soft, nontender, nondistended, normoactive bowel sounds. No palpable organomegaly. Surgical wound is healed and closing MUSCULOSKELETAL: No joint swelling or deformity. EXTREMITIES: No cyanosis, clubbing, or pedal edema. NEUROLOGICAL: Gross neurological examination did not reveal any focal deficits. SKIN: No rashes. No petechiae - Labs CBC & Chem 7: 09/07/20 08:49 09/07/20 08:49 Assessment and Plan Assessment: History of perforated diverticulitis and pelvic abscess. Status post reversal of colostomy and drainage of the pelvic abscess and sigmoid colectomy and appendectomy on 08/31 Intra-abdominal infection Alcohol abuse at-risk of alcohol withdrawal Plan: This is a pleasant 75 years old male who presents with reverse her colostomy, drainage of pelvic abscess and sigmoid colectomy. Continue with CIWA protocol and may mean for his alcohol abuse. Continue with Zosyn per ID team re commendation, his antibiotic is going to be switched to oral antibiotic upon discharge. Advance diet as per surgery team Labs and medication were reviewed.. Continue same treatment. Continue with s ymptomatic treatment. Resume home medication. Monitor lytes and vitals. DVT and GI prophylaxis. Further recommendations as per clinical course of the patient
--- NOTE | 2020-09-09 21:14 | PN ---
PROGRESS NOTE DATE OF SERVICE: 09/09/2020. REASON FOR FOLLOWUP: Intraabdominal abscess. INTERVAL HISTORY: Patient is currently afebrile. The patient is breathing comfortably. The patient denies having any chest pain, shortness of breath or cough. No nausea, no vomiting. Some abdominal discomfort but no worsening. Did not have any bowel movement yet. PHYSICAL EXAMINATION: Blood pressure 122/67, pulse of 83. Temperature is 98. He is 95% on room air. General description: The patient is an elderly male up in the chair in no distress. Respiratory system: Unlabored breathing, clear to auscultation anteriorly. Heart S1, S2. Regular rate and rhythm. ABDOMEN: Soft, no tenderness. LABS: Hemoglobin is 11.5, white count 8.2, BUN of 2, creatinine 0.66. DIAGNOSTIC IMPRESSION/PLAN: Patient with intraabdominal abscess status post colostomy reversal. Cultures with E coli and Proteus covered with Zosyn, transition to oral antibiotic, . Continue supportive care. MMODL / IJN: [id number] /
[2020-09-09 22:13] VITALS: RESP 16
[2020-09-10] MEDS: METOCLOPRAMIDE 5 MG/ML 2 ML VIAL IVP SCH ×3 (01:45→11:24)
[2020-09-10] MEDS: PIPERACILLIN-TAZOBACTAM 3.375 GM in SODIUM CHLORIDE 0.9% 100 ML IVPB SCH ×2 (03:01→11:24)
[2020-09-10] MEDS: HYDROcodone/APAP 7.5-325MG 1 EACH TAB PO PRN (07:31)
[2020-09-10] MEDS: HEPARIN SODIUM,PORCINE/PF 5,000 UNIT/0.5 ML SYRINGE SQ SCH (07:31)
[2020-09-10] MEDS: THIAMINE 100 MG TAB PO SCH (07:31)
[2020-09-10] MEDS: PANTOPRAZOLE 40 MG TABLET PO SCH (07:31)
[2020-09-10] MEDS: ALVIMOPAN 12 MG CAPSULE PO SCH (07:31)
[2020-09-10] MEDS: IPRATROPIUM-ALBUTEROL 3 ML NEB INHALATION SCH ×2 (08:04→11:27)
[2020-09-10 11:43] VITALS: BP 139/75; PULSE 84; TEMP 98.4
--- NOTE | 2020-09-10 11:56 | P.PN ---
Subjective This is a pleasant 75 years old male with multiple medical problems was admitted with recent history of a PERFORATED diverticulitis and pelvic abscess. This time patient was admitted and he is status post reversal of colostomy and drainage of pelvic abscess as well as sigmoid colectomy and appendectomy on 08/31 by surgical primary team. Medical consult was requested for medical management. Today patient is sitting in chair with minimal discomfort at the surgical site, he is tolerating a clear liquid diet with no nausea vomiting. Abdominal pain is only with coughing but he has normal bowel movement yet. No chest pain or dyspnea. Benedict catheter is in place. Vitals and labs are stable. No labs from today. Pathological report still pending. Infectious disease on the case and they recommended Zosyn to switch to oral vancomycin Upon discharge. Patient is on CIWA protocol but with no overt signs of withdrawal when I saw the patient. Also patient is on normal saline at 50 mL per hour. 09/05/2020 Patient today is looking better, he is tolerating liquid diet, his abdominal pain only with movement or coughing. However he did not have bowel movement or passing gas yet. Pathology report: Diverticulosis with diverticular rupture, subserosal inflammation, fibrosis and fat necrosis. Benign appendix with acute serositis Patient remains on Zosyn with the plan to switch to oral antibiotics per ID team upon discharge Also he is on normal saline 50 mL/h 09/06/2020 Patient looks better and more, every day. He still on liquid diet. But normal bowel movements. No nausea vomiting or abdominal pain. He still has Benedict catheter Discussed with surgery team and recommended to keep the patient and advanced diet to full liquids Patient remains on Zosyn with plan to switch to oral Augmentin upon discharge per ID team 09/07/2020 Patient stay with no bowel movement although he is on liquid diet, diet could be advanced today per surgery team. Reglan is going to be started Patient improved gradually but no bowel movement., Patient feels the urge to defecate gait but no bowel movement. Patient remains on Zosyn. Discontinue IV fluids 09/08/2020 Patient still on liquid diet, Reglan was added yesterday by surgery team however he still has normal bowel movement although reports more gas. Other than that he looks clinically stable and improved gradually. 09/09/2020 No significant change clinically, actually he looks better every day. He is tolerating liquid diet. When I saw the patient in the morning he did not have bowel movement however as per surgery like patient had bowel movement and the advanced his diet low fiber. We will keep monitoring 09/10/2020 Patient is doing well clinically, is resting in bed with minimal pain. Tolerating diet well, his normal regular diet with low fiber consistency. Minimal abdominal pain. He had bowel movement yesterday and today a little bit on the soft side which is expected but no overt diarrhea. Vitals are stable afebrile Patient currently on Zosyn for his pelvic abscess, switch to oral antibiotics upon discharge per ID team recommendation Up with primary care doctor and other consultants as indicated Objective - Vital Signs Vital signs: Vital Signs Temp 98.4 F 09/10/20 11:34 Pulse 66 09/10/20 11:36 Resp 16 09/10/20 11:34 BP 139/75 09/10/20 11:34 Pulse Ox 100 09/10/20 11:34 Intake & Output 09/09/20 09/10/20 09/10/20 18:59 06:59 18:59 Output Total 225 600 Balance -225 -600 Output: Urine 225 600 Uretheral (Benedict) 225 Other: Voiding Method Indwelling Catheter Indwelling Catheter # Voids 1 # Bowel Movements 1 1 - Exam GENERAL: The patient is alert and oriented x3, not in any acute distress. Well developed, well nourished. HEENT: Pupils are round and equally reacting to light. EOMI. No scleral icterus. No conjunctival pallor. Normocephalic, atraumatic. No pharyngeal erythema. No thyromegaly. CARDIOVASCULAR: S1 and S2 present. No murmurs, rubs, or gallops. PULMONARY: Chest is clear to auscultation, no wheezing or crackles. -ABDOMEN: Soft, nontender, nondistended, normoactive bowel sounds. No palpable organomegaly. Surgical wound is healed and closing MUSCULOSKELETAL: No joint swelling or deformity. EXTREMITIES: No cyanosis, clubbing, or pedal edema. NEUROLOGICAL: Gross neurological examination did not reveal any focal deficits. SKIN: No rashes. No petechiae - Labs CBC & Chem 7: 09/07/20 08:49 09/07/20 08:49 Assessment and Plan Assessment: History of perforated diverticulitis and pelvic abscess. Status post reversal of colostomy and drainage of the pelvic abscess and sigmoid colectomy and appendectomy on 08/31 Intra-abdominal infection Alcohol abuse at-risk of alcohol withdrawal Plan: This is a pleasant 75 years old male who presents with reverse her colostomy, drainage of pelvic abscess and sigmoid colectomy. Continue with CIWA protocol and may mean for his alcohol abuse. Continue with Zosyn per ID team recommendation, his antibiotic is going to be switched to oral antibiotic upon discharge. Advance diet as per surgery team Labs and medication were reviewed.. Continue same treatment. Continue with symptomatic treatment. Resume home medication. Monitor lytes and vitals. DVT and GI prophylaxis. Further recommendations as per clinical course of the patient We recommend patient follow up with his PCP in one week after discharge, patient was instructed with the same Thank you for consulting us
--- NOTE | 2020-09-10 12:55 | PN ---
PROGRESS NOTE DATE OF SERVICE: 09/10/2020 REASON FOR FOLLOWUP: Intraabdominal abscess. INTERVAL HISTORY: The patient is afebrile. Patient is breathing comfortably. Patient denies having any chest pain, no shortness of breath, no cough. Abdominal pain is currently controlled and did have bowel movement. PHYSICAL EXAMINATION: Blood pressure 139/75 with a pulse of 84, temperature 98.4. He is 100% on room air. General description is an elderly male up in the chair in no distress. RESPIRATORY SYSTEM: Unlabored breathing, clear to auscultation anteriorly. HEART: S1, S2. Regular rate and rhythm. ABDOMEN: Soft, no tenderness. LABS: No new labs have been obtained today. Blood culture negative. Abdominal cultures reveal E. Coli and Proteus mirabilis. DIAGNOSTIC IMPRESSION AND PLAN: The patient admitted with abdominal abscess in this patient status post reversal of his colostomy. Overall improvement. He received about 10 days of IV antibiotic therapy with short course of oral Ceftin and Flagyl on discharge and close outpatient followup. MMODL / IJN: [id number] /
--- NOTE | 2020-09-10 12:58 | P.DS ---
Providers Date of admission: 08/31/20 07:57 Expected date of discharge: 09/10/20 Attending physician: Trevon Francis Consults: 08/31/20 12:38 Consult Physician Routine Consulting Provider: Ismael Day Consult Reason/Comments: med manage Do you want consulting provider notified?: Yes 09/02/20 16:25 Consult Physician Routine Consulting Provider: Pushpa Weiner Consult Reason/Comments: intra abdominal abscess Do you want consulting provider notified?: Yes Primary care physician: Timo Grewal [facility] Course: Discharge diagnosis 1. History of perforated diverticulitis and pelvic abscess status post reversal of colostomy, drainage of pelvic abscess, sigmoid colectomy and appendectomy 2. Colovesical fistula Hospital course This is a 75-year-old male with a history of perforated diverticulitis and presented to the hospital for reversal of colostomy. Patient is status post reversal of colostomy, drainage of pelvic abscess, sigmoid colectomy and appendectomy. Patient tolerated surgery well. His pain is controlled. He is tolerating diet. He is having bowel movements and passing gas. He has been up and ambulating. He is afebrile. He is stable for discharge. Infectious diseases recommending one more week of antibiotics for the pelvic abscess. Patient is also urinating without difficulty. His urine is clear. Patient is stable for discharge. Please refer to chart for any further details. Physician Cane Flume Feeding Machine Operator note has been reviewed by physician. Signing provider agrees with the documented findings, assessment, and plan of care. Patient Condition at Discharge: Stable Plan - Discharge Summary Discharge Rx Participant: No New Discharge Prescriptions: New Cefuroxime Axetil [Ceftin] 500 mg PO BID 7 Days #14 tab metroNIDAZOLE [Flagyl] 500 mg PO TID 7 Days #21 tab HYDROcodone/APAP 5-325MG [[place] 5-325] 1 tab PO Q6HR PRN 3 Days #12 tab PRN Reason: Pain No Action Fluticasone/Umeclidin/Vilanter [Trelegy Ellipta 100-62.5-25] 1 inhalation INHALATION QAM Multivitamins, Thera [Multivitamin (formulary)] 1 tab PO DAILY Acetaminophen [Tylenol] 325 mg PO Q4H PRN PRN Reason: Pain Aspirin [Aspirin EC] 650 mg PO QID PRN PRN Reason: Pain Discharge Medication List Acetaminophen [Tylenol] 325 mg PO Q4H PRN 08/28/20 [History] Aspirin [Aspirin EC] 650 mg PO QID PRN 08/28/20 [History] Fluticasone/Umeclidin/Vilanter [Trelegy Ellipta 100-62.5-25] 1 inhalation INHALATION QAM 08/28/20 [History] Multivitamins, Thera [Multivitamin (formulary)] 1 tab PO DAILY 08/28/20 [History] Cefuroxime Axetil [Ceftin] 500 mg PO BID 7 Days #14 tab 09/10/20 [Rx] HYDROcodone/APAP 5-325MG [[place] 5-325] 1 tab PO Q6HR PRN 3 Days #12 tab 09/10/20 [Rx] metroNIDAZOLE [Flagyl] 500 mg PO TID 7 Days #21 tab 09/10/20 [Rx] Follow up Appointment(s)/Referral(s): [facility], [NON-STAFF] - 1 Week Timo Grewal DO [Primary Care Provider] - 1 Week (pt appt is 09/12/20 at 1pm) Trevon Francis MD [STAFF PHYSICIAN] - 1 Week Activity/Diet/Wound Care/Special Instructions: Medicine service to complete discharge med rec dr Grewal will not sign home care orders until you are seen by him on the . please keep your appt with dr Grewal so that home care -nurse - aide- physical therapy and occupational therapy No driving while taking [place] No lifting over 10 pounds You may shower. No soaking or tub baths for 2 weeks Very light activity until you are reevaluated at your follow up appointment with your surgeon Discharge Disposition: HOME WITH HOME HEALTH SERVICES
== END 2020-09-10 15:36 | disposition home health service (06) | DRG 329 ==
LOC: 2ORMAIN 07:57 → 5NMEDONC 13:03
PROVIDERS: ADMIT Surgery; ATTEND Surgery
PROC: 0DTJ0ZZ Resection of Appendix, Open Approach (ICD-10-PCS; principal; 2020-08-31 09:40)
PROC: 0DBM0ZZ Excision of Descending Colon, Open Approach (ICD-10-PCS; principal; 2020-08-31 09:40)
PROC: 0W9J0ZX Drainage of Pelvic Cavity, Open Approach, Diagnostic (ICD-10-PCS; principal; 2020-08-31 09:40)
DX: Z43.3 Encounter for attention to colostomy (principal); E43 Unspecified severe protein-calorie malnutrition; K65.1 Peritoneal abscess; K57.20 Diverticulitis of large intestine with perforation and abscess without bleeding; N32.1 Vesicointestinal fistula; Z68.1 Body mass index [BMI] 19.9 or less, adult; N39.0 Urinary tract infection, site not specified; D63.8 Anemia in other chronic diseases classified elsewhere; J44.9 Chronic obstructive pulmonary disease, unspecified; F10.20 Alcohol dependence, uncomplicated; Z20.822 Contact with and (suspected) exposure to COVID-19; B96.20 Unspecified Escherichia coli [E. coli] as the cause of diseases classified elsewhere; B96.4 Proteus (mirabilis) (morganii) as the cause of diseases classified elsewhere; K59.00 Constipation, unspecified; F17.210 Nicotine dependence, cigarettes, uncomplicated; Z79.82 Long term (current) use of aspirin; Z79.51 Long term (current) use of inhaled steroids; Z79.899 Other long term (current) drug therapy; Z87.01 Personal history of pneumonia (recurrent); Z90.89 Acquired absence of other organs; Z90.49 Acquired absence of other specified parts of digestive tract; Z87.19 Personal history of other diseases of the digestive system; Z82.49 Family history of ischemic heart disease and other diseases of the circulatory system; Z83.79 Family history of other diseases of the digestive system
CPT/HCPCS: 44388; 45378; 80048; 80053; 81001; 84132; 85025; 85610; 85652; 86140; 86850; 86900; 86901; 87040; 87070; 87075; 87077; 87086; 87186; 87205; 87635; 88307; 94640